=== PATIENT | female | born 1935 | race Caucasian/White ===

== ENCOUNTER 2021-08-21 10:30 | Outpatient (RCR) | payer MEDICARE, OTHER, SELFPAY ==
[2021-08-14 10:20] VITALS: BP 122/92; PULSE 92; RESP 18; TEMP 36.4; BMI 25.7
--- NOTE | 2021-08-14 11:14 | PN.PCM_ITS ---
History of Present Illness Date of Service: 08/14/21 Chief Complaint: Left leg swelling and left lateral calf ulceration History of Wound: Pt has been treated with 3M 2-layer coban wrap and fibracol. Her ulceration appears to have healed. She has seen Dr. Sanches, and LEAs have been ordered. Subjective Subjective Patient is an 86-year-old female with history of COPD, who presents to the wound care center with anterior left lower extremity wound secondary to chronic venous insufficiency and left hallux ulceration medially overlying the IPJ. She was previously seen by a business analytics intern in [place] but due to her hospital liaison noticing some odor coming from the left hallux she requested to be seen in the wound care center. She denies any nausea, vomiting, fever, chills, or shortness of breath. Objective Data Objective Data Vital Signs: Vital Signs Temp Pulse Resp BP 97.5 F L 92 18 122/92 H 08/14/21 10:20 08/14/21 10:20 08/14/21 10:20 08/14/21 10:20 Oxygen Delivery Method Room Air Weight: 70.307 kg Body Mass Index (BMI) 25.7 Physical Exam Const alert, oriented x3, no apparent distress and healthy appearing General Appearance: cooperative HEENT normocephalic Eyes conjunctivae normal and no scleral icterus General Eye: normal appearance of both eyes Neck General: normal visual inspection Lymph Lymphatic: no lymphadenopathy noted Resp normal respiratory effort Cardio Peripheral Pulses: posterior tibial pulses present and dorsalis pedis pulses present Extremity Extremity Narrative: Skin intact with brawny discoloration and hemosiderin deposition left lower extremity secondary to venous insufficiency/stasis. Left lower extremity ulceration anterior with localized rubor and mixed yellow fibrotic granular tissue, no malodor, no purulence or other localized signs of infection, adjacent skin is atrophic and thin. Left hallux IPJ medial significant hyperkeratotic tissue noted with no localized erythema, purulent drainage, red streaking. Left hallux site does have some malodor secondary to underlying skin breakdown. 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 Left hallux IPJ medial significant hyperkeratotic tissue noted secondary to decreased range of motion of the hallux. With no localized erythema, purulent drainage, red streaking. Left hallux site does have some malodor secondary to skin breakdown. Neuro Motor Exam: strength 5/5 throughout and clonus absent Debridement Note Debridement Note Debridement Free Text: Debridement Note Wound debrided: Anterior Left Leg, plantar medial left hallux Wound Grade/Stage: 1, 1 Type of Debridement: Excisional debridement Anesthesia Used: 4% Lidocaine Solution Depth: in the subcutaneous layer Percentage of wound debrided: 100 Instrument Used: # 3 currette and #15 blade Tissue Removed: fibrous, devitalized subcutaneous, biofilm, slough Severity: Fat Layer Exposed Amount of bleeding with debridement: Mild Bleeding Controlled with: Pressure Patient tolerated procedure: Patient tolerated procedure well Post-Debridement Measurements and Additional Note: Post-Debridement Measurements/Treatment - Nurse 1 - General Ulcer Assessment Start: 08/14/21 10:06 Freq: Status: Active Protocol: [email or web address] Activity Type Activity Date Activity User E-Sign Co-Sign Detail Recorded Client Recorded Date Recorded By Document 08/14/21 10:20 JAVIER [id number] 08/14/21 10:32 JAVIER 08/14/21 10:20 - Today's Visit Information Type of service Initial Visit Arrival Mode Ambulatory, Walker Accompanied by home health aide Patient Identification Verified (Name & Yes ) Patient Requires Transmission-Based No Precautions Safety Precautions NA Height and Weight Height 5 ft 5 in Weight 70.307 kg Weight in Pounds 155.0 lbs Weight Measurement Method Estimated by Patient Body Mass Index (BMI) 25.7 BMI Classification Overweight BSA - Gucci 1.78 Vital Signs Temperature (97.8 F-99.1 F) 97.5 F L Temperature Source Temporal Pulse Rate (60-100) 92 Respiratory Rate (12-18) 18 Oxygen Delivery Method Room Air Blood Pressure (90/60-120/80) 122/92 H Blood Pressure Mean (mm Hg) 102 History Since Last Visit- (Skip if this is Patient's initial visit) Have you changed medications since your No last visit? Any new allergies or adverse reactions No Had a fall/change in ADL's that may No increase risk of falls Signs or symptoms of abuse and/or No neglect since last visit Have you been in the hospital since your No last visit? Has dressing in place as prescribed Yes Has compression in place as prescribed No Has offloadiing in place as prescribed No Experienced any changes in pain level or No management Pain Scale: 0-10 Numeric Is Patient Pain Free? Yes Lower Extremity Assessment/ Foot Assessment/ Toe Nail Assessment Left -Polpliteal Pulses Palpable Yes -Popliteal Doppler Multiphasic -Posterior Tibial Palpable Yes -Posterior Tibial Doppler Multiphasic -Dorsalis Pedis Palpable Yes -Dorsalis Pedis Doppler Multiphasic -Extremity Color Dusky -Hair Growth on Legs No -Hair Growth on Toes No -Temperature of Extremity Warm -Capillary Refill Less than 3 Seconds Right -Polpliteal Pulses Palpable Yes -Popliteal Doppler Multiphasic -Posterior Tibial Palpable Yes -Posterior Tibial Doppler Multiphasic -Dorsalis Pedis Palpable Yes -Dorsalis Pedis Doppler Multiphasic -Extremity Color Dusky -Hair Growth on Legs No -Hair Growth on Toes No -Capillary Refill Less than 3 Seconds Communication Assessment Preferred language Trinidadian Case Loader Operator Required No Able to Read Yes Able to Write Yes Communication Tools None Right Hearing Abillity Normal Left Hearing Abillity Normal Visual Assistive Devices Glasses Teaching Assessment Preferences Verbal Barriers to Learning None Readiness To Learn Excellent Willingness to Engage in Self Management High Activies Functional Assessment Recent Decline in Ability to Perform Denies Any Declines Teaching: Wound Center *Debridement -Person Taught Patient,Primary Caregiver -Teaching Method Discussion -Response to teaching Verbalize understanding WC - Nurse 1 - General Ulcer Measurement Start: 08/14/21 10:06 Freq: Status: Active Protocol: Activity Type Activity Date Activity User E-Sign Co-Sign Detail Recorded Client Recorded Date Recorded By Document 08/14/21 10:20 JAVIER [id number] 08/14/21 10:32 JAVIER 08/14/21 10:20 Wound Center Nurse 1 #2 Left Gr Toe -Combined with other wound No -Current Size (cm) - Length 0.1 -Current Size (cm) - Width 0.1 -Current Size (cm) - Depth 0.1 -Total Square Cm 0.01 -Date of Last Picture (Recall this 08/14/21 field) -Photo Taken Yes -Epithelialization None Present -Tunneling No -Undermining/Tunneling No -Circular Undermining No -Classification - Thickness Partial Thickness -Exudate Amt Medium -Exudate Type Serosanguineous -Wound Margin Indistinct, Non -Visible -Granulation Amt None Present (0 %) -Slough/Fibrin Yes -Necrosis Amt Large (67-100%) -Necrotic Tissue Type Adherent Slough -Texture (Vangie-wound Skin Appearance) No Abnormality -Moisture (Vangie-wound Skin Appearance) No Abnormality -Color (Vangie-wound Skin Appearance) No Abnormality -Temperature (Vangie-wound Skin No Abnormality Appearance) (Pt Warm) -Tenderness on Palpation (Vangie-wound Yes Skin Appearance) -Ulcer Cleansing Rinsed/ Irrigated with Saline -Foul Odor after Cleansing No -Anesthetic Used 4% Lidocaine Solution 1-left Ant leg -Combined with other wound No -Current Size (cm) - Length 1.9 -Current Size (cm) - Width 1.4 -Current Size (cm) - Depth 0.2 -Total Square Cm 2.66 -Date of Last Picture (Recall this 08/14/21 field) -Photo Taken Yes -Epithelialization None Present -Tunneling No -Undermining/Tunneling No -Circular Undermining No -Classification - Thickness Full Thickness without Exposed Support Structure -Exudate Amt Medium -Exudate Type Serosanguineous -Wound Margin Indistinct, Non -Visible -Granulation Amt None Present (0 %) -Slough/Fibrin Yes -Necrosis Amt Large (67-100%) -Necrotic Tissue Type Adherent Slough -Moisture (Vangie-wound Skin Appearance) No Abnormality -Color (Vangie-wound Skin Appearance) No Abnormality -Temperature (Vangie-wound Skin No Abnormality Appearance) (Pt Warm) -Tenderness on Palpation (Vangie-wound Yes Skin Appearance) -Ulcer Cleansing Soap and Water -Anesthetic Used 4% Lidocaine Solution Right Calf (cm) 34.7 Right Ankle (cm) 22.0 Left Calf (cm) 37.4 Left Ankle (cm) 23.6 Assessment/Plan Assessment/Plan (1) COPD (chronic obstructive pulmonary disease): CODE(S): J44.9 - Chronic obstructive pulmonary disease, unspecified (2) Chronic venous insufficiency: (3) Non-pressure chronic ulcer of left calf with fat layer exposed: CODE(S): L97.222 - Non-pressure chronic ulcer of left calf with fat layer exposed (4) Varicose veins of left lower extremity with ulcer of calf: CODE(S): I83.022 - Varicose veins of left lower extremity with ulcer of calf (5) Leg edema, left: CODE(S): R60.0 - Localized edema (6) Non-pressure 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: CODE(S): L97.522 - Non-pressure 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 (7) Spinal stenosis: CODE(S): M48.00 - Spinal stenosis, site unspecified PLAN: This is an 86-year-old female with history of COPD and spinal stenosis who presents to the wound care clinic with left lower extremity anterior ulceration secondary to chronic venous insufficiency. She also has a left medial hallux IPJ ulceration secondary to decreased range of motion at the first metatarsophalangeal joint due to end-stage arthritis. She had venous studies performed confirming reflux of the left great saphenous vein and no deep venous thrombosis bilaterally. I debrided the left lower extremity anterior leg ulceration, Russell stage 1, with a #3 curette. Debridement performed to remove fibrous, devitalized subcutaneous, biofilm, slough. I debrided the left hallux medial IPJ hyperkeratotic tissue with a #15 blade. Upon removal of the hyperkeratotic tissue, some malodor was noticed with underlying macerated tissue and a small plantar medial ulceration with underlying granular bed and serous drainage. Debridement continued removing all nonviable tissue, devitalized subcutaneous, biofilm, and slough of this Russell stage 1 ulceration. Left hallux demonstrates no erythema, no purulence, proximal red streaking or other localized signs of infection. Cultures were obtained of the left hallux, aerobic and anaerobic. Ulceration site anterior left lower extremity was dressed with Chuyita, dry sterile dressing, and a Tubigrip. Left hallux ulceration site was dressed with Chuyita, 2 x 2 gauze, cotton padding, Coban and an offloading pad to the first metatarsophalangeal joint. Wound care supplies to be ordered and sent to the patient's house to continue daily dressing changes with assistance of her home health aide. I discussed continued offloading of left hallux ulceration site with felt offloading pads, surgical shoe, or foam shoe inserts. I reviewed and discussed her case today. Debridement was performed today as noted in the clinical panel to all of the ulcer sites. The following work up and care recommendations were made: Dressing: Chuyita anterior left leg; Chuyita left hallux, 2 x 2 gauze, cotton, Cob an and an offloading pad to the first metatarsophalangeal joint Wash: Soap and water Tissue growth optimization: Chuyita Offload: Offloading dressing of the first MTPJ and left hallux Vascular: Vascular status intact with palpable pedal pulses Edema: Elevate the left lower extremity Infection: No localized signs of infection present Pain: [id number] Tylenol, safe oral anti-inflammatory use was discussed. Host factors: I answered all the patient's questions. To return to the wound healing center in 1 week or call sooner if the patient has any questions or concerns. The problems addressed require a low medical decision making level which includes two or more minor problems, a stable chronic illness, or an acute uncomplicated illness or injury. The medical decision making level is low. There is noted low risk of morbidity after considering this treatment plan and diagnostic data.
[2021-08-21 10:36] VITALS: BP 142/76; PULSE 78; RESP 18; TEMP 36.3; BMI 25.7
--- NOTE | 2021-08-21 12:22 | PN.PCM_ITS ---
History of Present Illness Date of Service: 08/21/21 Chief Complaint: Left leg swelling and left anterior leg ulceration, left hallux plantar wound History of Wound: Patient has been treated with Chuyita to both ulceration sites and an offloading pad to the left hallux. Progress of Wound: Left anterior lower extremity ulceration is showing signs of granulation tissue with healing progression. Left plantar hallux ulceration is progressing well and decreasing in size with no localized signs of infection. Subjective Subjective Patient is an 86-year-old female with history of COPD, who presents to the wound care center for follow-up of anterior left lower extremity wound secondary to chronic venous insufficiency and left hallux ulceration medially overlying the IPJ. She denies any nausea, vomiting, fever, chills, or shortness of breath. Her storyboard artist is continuing to change her dressings daily with Chuyita to both ulceration sites and an offloading apparatus pad to the plantar aspect of the first metatarsophalangeal joint to offload the hallux. Her storyboard artist feels that the wounds are decreasing in size and she is showing good progress. Objective Data Objective Data Vital Signs: Vital Signs Temp Pulse Resp BP 97.4 F L 78 18 142/76 H 08/21/21 10:36 08/21/21 10:36 08/21/21 10:36 08/21/21 10:36 Oxygen Delivery Method Room Air Weight: 70.307 kg Body Mass Index (BMI) 25.7 Lab / Micro Data Micro: Microbiology 08/14/21 10:55 Wound Abcess - Toe Gram Stain - Final 08/14/21 10:55 Wound Abcess - Toe Wound Culture - Final Proteus mirabilis 08/14/21 10:55 Wound Abcess - Toe Anaerobic Culture - Final Bifidobacterium spp Anaerobic cocci Physical Exam Const alert, oriented x3, no apparent distress and healthy appearing General Appearance: cooperative HEENT normocephalic Eyes conjunctivae normal and no scleral icterus General Eye: normal appearance of both eyes Neck General: normal visual inspection Lymph Lymphatic: no lymphadenopathy noted Resp normal respiratory effort Cardio Peripheral Pulses: posterior tibial pulses present and dorsalis pedis pulses present Extremity Extremity Narrative: Skin intact with brawny discoloration and hemosiderin deposition left lower extremity secondary to venous insufficiency/stasis. Left lower extremity ulceration anterior with localized rubor and granular tissue in the wound bed, no malodor, no purulence or other localized signs of infection, adjacent skin is atrophic and thin. Left hallux IPJ some h yperkeratotic tissue noted with no localized erythema, purulent drainage, malodor, red streaking or other localized signs of infection. 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 Left hallux IPJ some hyperkeratotic tissue noted secondary to decreased range of motion of the hallux. With no localized erythema, purulent drainage, no malordor, or red streaking. Neuro Motor Exam: strength 5/5 throughout and clonus absent Debridement Note Debridement Note Wound debrided: Left anterior lower extremity ulceration Laterality: Left Wound Grade/Stage: Russell 1 Type of Debridement: Excisional debridement Anesthesia Used: 4% Lidocaine Solution Depth: in the subcutaneous layer Percentage of wound debrided: 100 Instrument Used: #15 blade Tissue Removed: Fibrous, devitalized subcutaneous, biofilm, slough Severity: Fat Layer Exposed Amount of bleeding with debridement: Mild Bleeding Controlled with: Pressure Patient tolerated procedure: Patient tolerated procedure well Post-Debridement Measurements and Additional Note: Post-Debridement Measurements/Treatment - Nurse 1 - General Ulcer Assessment Start: 08/14/21 10:06 Freq: Status: Active Protocol: ALEX Activity Type Activity Date Activity User E-Sign Co-Sign Detail Recorded Client Recorded Date Recorded By Document 08/14/21 10:20 [id number] 08/14/21 10:32 Document 08/21/21 10:36 DARIO [id number] 08/21/21 10:48 DARIO 08/14/21 08/21/21 10:20 10:36 - Today's Visit Information Type of service Initial Visit Follow-up Visit (Physician/COTTON HEADER ) Arrival Mode Ambulatory, Walker Walker Transfer Assistance None Accompanied by home health aide Patient Identification Verified (Name & Yes Yes ) Patient Requires Transmission-Based No No Precautions Safety Precautions NA NA Height and Weight Height 5 ft 5 in Weight 70.307 kg Weight in Pounds 155.0 lbs Weight Measurement Method Estimated by Patient Body Mass Index (BMI) 25.7 25.7 BMI Classification Overweight Overweight BSA - Gucci 1.78 Vital Signs Temperature (97.8 F-99.1 F) 97.5 F L 97.4 F L Temperature Source Temporal Temporal Pulse Rate (60-100) 92 78 Respiratory Rate (12-18) 18 18 Oxygen Delivery Method Room Air Blood Pressure (90/60-120/80) 122/92 H 142/76 H Blood Pressure Mean (mm Hg) 102 98 History Since Last Visit- (Skip if this is Patient's initial visit) Have you changed medications since your No No last visit? Any new allergies or adverse reactions No No Had a fall/change in ADL's that may No No increase risk of falls Signs or symptoms of abuse and/or No No neglect since last visit Have you been in the hospital since your No No last visit? Has dressing in place as prescribed Yes No Has compression in place as prescribed No Yes Has offloadiing in place as prescribed No Yes Experienced any changes in pain level or No No management Pain Scale: 0-10 Numeric Is Patient Pain Free? Yes Yes Lower Extremity Assessment/ Foot Assessment/ Toe Nail Assessment Left -Polpliteal Pulses Palpable Yes -Popliteal Doppler Multiphasic -Posterior Tibial Palpable Yes -Posterior Tibial Doppler Multiphasic -Dorsalis Pedis Palpable Yes -Dorsalis Pedis Doppler Multiphasic -Extremity Color Dusky -Hair Growth on Legs No -Hair Growth on Toes No -Temperature of Extremity Warm -Capillary Refill Less than 3 Seconds Right -Polpliteal Pulses Palpable Yes -Popliteal Doppler Multiphasic -Posterior Tibial Palpable Yes -Posterior Tibial Doppler Multiphasic -Dorsalis Pedis Palpable Yes -Dorsalis Pedis Doppler Multiphasic -Extremity Color Dusky -Hair Growth on Legs No -Hair Growth on Toes No -Capillary Refill Less than 3 Seconds Communication Assessment Preferred language [employer] Sales Associate Required No Able to Read Yes Able to Write Yes Communication Tools None Right Hearing Abillity Normal Left Hearing Abillity Normal Visual Assistive Devices Glasses Teaching Assessment Preferences Verbal Barriers to Learning None Readiness To Learn Excellent Willingness to Engage in Self Management High Activies Functional Assessment Recent Decline in Ability to Perform Denies Any Declines Teaching: Wound Center *Debridement -Person Taught Patient,Primary Caregiver -Teaching Method Discussion -Response to teaching Verbalize understanding WC - Nurse 1 - General Ulcer Measurement Start: 08/14/21 10:06 Freq: Status: Active Protocol: Activity Type Activity Date Activity User E-Sign Co-Sign Detail Recorded Client Recorded Date Recorded By Document 08/14/21 10:20 JF [id number] 08/14/21 10:32 JF Document 08/21/21 10:36 PL [id number] 08/21/21 10:48 PL 08/14/21 08/21/21 10:20 10:36 Wound Center Nurse 1 #2 Left Gr Toe -Combined with other wound No No -Current Size (cm) - Length 0.1 0.2 -Current Size (cm) - Width 0.1 0.4 -Current Size (cm) - Depth 0.1 0.1 -Total Square Cm 0.01 0.08 -Date of Last Picture (Recall this 08/14/21 field) -Photo Taken Yes No -Epithelialization None Present None Present -Tunneling No No -Undermining/Tunneling No No -Circular Undermining No No -Classification - Thickness Partial Thickness -Exudate Amt Medium Medium -Exudate Type Serosanguineous Serosanguineous -Wound Margin Indistinct, Non -Visible -Granulation Amt None Present (0 None Present (0 %) %) -Slough/Fibrin Yes Yes -Necrosis Amt Large (67-100%) Medium (34-66%) -Necrotic Tissue Type Adherent Slough Adherent Slough -Texture (Vangie-wound Skin Appearance) No Abnormality -Moisture (Vangie-wound Skin Appearance) No Abnormality Dry/Scaly -Color (Vangie-wound Skin Appearance) No Abnormality No Abnormality -Temperature (Vangie-wound Skin No Abnormality No Abnormality Appearance) (Pt Warm) (Pt Warm) -Tenderness on Palpation (Vangie-wound Yes Skin Appearance) -Ulcer Cleansing Rinsed/ Soap and Water Irrigated with Saline -Foul Odor after Cleansing No No -Anesthetic Used 4% Lidocaine 5% Lidocaine Solution Gel #3 left anterior leg -Combined with other wound No No -Current Size (cm) - Length 1.9 1.9 -Current Size (cm) - Width 1.4 1.1 -Current Size (cm) - Depth 0.2 0.1 -Total Square Cm 2.66 2.09 -Date of Last Picture (Recall this 08/14/21 field) -Photo Taken Yes -Epithelialization None Present None Present -Tunneling No No -Undermining/Tunneling No No -Circular Undermining No No -Classification - Thickness Full Thickness without Exposed Support Structure -Exudate Amt Medium Medium -Exudate Type Serosanguineous Serosanguineous -Wound Margin Indistinct, Non -Visible -Granulation Amt None Present (0 Small (1-33%) %) -Granulation Quality Pale -Slough/Fibrin Yes Yes -Necrosis Amt Large (67-100%) Medium (34-66%) -Necrotic Tissue Type Adherent Slough Adherent Slough -Moisture (Vangie-wound Skin Appearance) No Abnormality Dry/Scaly -Color (Vangie-wound Skin Appearance) No Abnormality No Abnormality -Temperature (Vangie-wound Skin No Abnormality No Abnormality Appearance) (Pt Warm) (Pt Warm) -Tenderness on Palpation (Vangie-wound Yes Skin Appearance) -Ulcer Cleansing Soap and Water Soap and Water -Anesthetic Used 4% Lidocaine 5% Lidocaine Solution Gel Right Calf (cm) 34.7 Right Ankle (cm) 22.0 Left Calf (cm) 37.4 Left Ankle (cm) 23.6 WC - Nurse 2 - General Ulcer CM Notes Start: 08/14/21 10:06 Freq: Status: Active Protocol: Activity Type Activity Date Activity User E-Sign Co-Sign Detail Recorded Client Recorded Date Recorded By Document 08/14/21 11:18 PL [id number] 08/14/21 11:20 PL 08/14/21 11:18 Wound Center Nurse 2 #2 Left Gr Toe -Time 10:48 -Correct Patient Yes -Correct Side, Site, Position Yes -Correct Procedure Yes -Procedure Performed Yes -Type of Procedure Debridement -Clinical Debridement Subcutaneous -Tissue Removed Subcutaneous -Post Debridement (cm) - Length 0.1 -Post Debridement (cm) - Width 0.1 -Post Debridement (cm) - Depth 0.1 -Total Square (Post) (cm) 0.01 -Area of Debridement (cm) - Length 0.1 -Area of Debridement (cm) - Width 0.1 -Total Square (Area) (cm) 0.01 -Tunneling No -Undermining/Tunneling No -Circular Undermining No -Wound/Ulcer Outcome Not Healed -Ulcer Cleansing Rinsed/ Irrigated with Saline -Foul Odor after Cleansing No -Bioengineered Tissue No -Bleeding Controlled with Pressure -Treatment Response Procedure Tolerated Well -Debridement - Subq, 1st 20sq cm No #3 left anterior leg -Time 10:48 -Correct Patient Yes -Correct Side, Site, Position Yes -Correct Procedure Yes -Procedure Performed Yes -Type of Procedure Debridement -Clinical Debridement Subcutaneous -Tissue Removed Subcutaneous -Post Debridement (cm) - Length 1.9 -Post Debridement (cm) - Width 1.4 -Post Debridement (cm) - Depth 0.2 -Total Square (Post) (cm) 2.66 -Area of Debridement (cm) - Length 1.9 -Area of Debridement (cm) - Width 1.4 -Total Square (Area) (cm) 2.66 -Tunneling No -Undermining/Tunneling No -Circular Undermining No -Wound/Ulcer Outcome Not Healed -Ulcer Cleansing Rinsed/ Irrigated with Saline -Foul Odor after Cleansing No -Bioengineered Tissue No -Bleeding Controlled with Pressure -Treatment Response Procedure Tolerated Well -Debridement - Subq, 1st 20sq cm Yes Pain Scale: 0-10 Numeric Is Patient Pain Free? Yes - Nurse 3 - General Ulcer D/C NN Start: 08/14/21 10:06 Freq: Status: Active Protocol: Activity Type Activity Date Activity User E-Sign Co-Sign Detail Recorded Client Recorded Date Recorded By Document 08/14/21 11:34 JAVIER [id number] 08/14/21 11:35 JAVIER 08/14/21 11:34 Wound Care Nurse 3 #2 Left Gr Toe -Ulcer Cleansing Rinsed/ Irrigated with Saline -Foul Odor after Cleansing No -Primary Dressing Applied Promogran Chuyita Matter -Primary Dressing Covered/Secured with Dry Gauze, Secured with Tape -Promogran Chuyita Matter 1 #3 left anterior leg -Ulcer Cleansing Rinsed/ Irrigated with Saline -Foul Odor after Cleansing No -Primary Dressing Applied Promogran Chuyita Matter -Primary Dressing Covered/Secured with Dry Gauze & Roll Gauze, Secured with Tape -Promogran Chuyita Matter 0 Left -Tubular Bandage Single Layer -Size of Tubigrip Used Size E -Size E ($) 2 -Stockings No Pain Scale: 0-10 Numeric Is Patient Pain Free? Yes WC - Visit Discharge Discharge Condition Stable Ambulatory Status Ambulatory, Walker Transportation Private Auto Accompanied by private caregiver Medication Reconcilliation completed & Yes provided to patient/care provider Clinical Summary of Care Provided Yes Additional Wound Wound debrided: Left plantar hallux Laterality: Left Wound Grade/Stage: Russell stage I Type of Debridement: Excisional debridement Anesthesia Used: 4% Lidocaine Solution Depth: in the subcutaneous layer Percentage of wound debrided: 100 Instrument Used: #15 blade Tissue Removed: Fibrous, devitalized subcutaneous, biofilm, slough, hyperkeratotic tissue Severity: Fat Layer Exposed Amount of bleeding with debridement: Mild Bleeding Controlled with: Pressure Patient tolerated procedure: Patient tolerated procedure well Assessment/Plan Assessment/Plan (1) COPD (chronic obstructive pulmonary disease): CODE(S): J44.9 - Chronic obstructive pulmonary disease, unspecified (2) Chronic venous insufficiency: (3) Non-pressure chronic ulcer of left calf with fat layer exposed: CODE(S): L97.222 - Non-pressure chronic ulcer of left calf with fat layer exposed (4) Varicose veins of left lower extremity with ulcer of calf: CODE(S): I83.022 - Varicose veins of left lower extremity with ulcer of calf (5) Leg edema, left: CODE(S): R60.0 - Localized edema (6) Non-pressure 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: CODE(S): L97.522 - Non-pressure 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 (7) Spinal stenosis: CODE(S): M48.00 - Spinal stenosis, site unspecified PLAN: This is an 86-year-old female with history of COPD and spinal stenosis who presents to the wound care clinic for follow-up of left lower extremity anterior ulceration secondary to chronic venous insufficiency. She also has a left medial hallux IPJ ulceration secondary to decreased range of motion at the first metatarsophalangeal joint due to end-stage arthritis. She had venous studies performed confirming reflux of the left great saphenous vein and no deep venous thrombosis bilaterally. I debrided the left lower extremity anterior leg ulceration, Russell stage 1, with a #15 blade. Debridement performed to remove fibrous, devitalized subcutaneous, biofilm, slough. I debrided the left hallux medial IPJ hyperkeratotic tissue with a #15 blade removing all nonviable tissue, devitalized subcutaneous, biofilm, and slough of this Russell stage 1 ulceration. Left hallux demonstrates no erythema, no purulence, proximal red streaking or other localized signs of infection. Cultures demonstrated localized skin contaminants. Left hallux ulceration site is showing progression decreasing in size overall with less callus buildup. Patient continues to offload the first metatarsophalangeal joint and hallux with an offloading pad. Instructed patient and storyboard artist to continue to offload as this is zepeda to decreasing pressure and healing this ulceration. Ulceration site anterior left lower extremity was dressed with Chuyita, dry sterile dressing, and a Tubigrip. Left hallux ulceration site was dressed with Chuyita, 2 x 2 gauze, cotton padding, Coban and an offloading pad to the first metatarsophalangeal joint. I discussed continued offloading of left hallux ulceration site with felt offloading pads, surgical shoe, or foam shoe inserts. I reviewed and discussed her case today. Debridement was performed today as noted in the clinical panel to all of the ulcer sites. The following work up and care recommendations were made: Dressing: Chuyita anterior left leg; Chuyita left hallux, 2 x 2 gauze, cotton, Coban and an offloading pad to the first metatarsophalangeal joint Wash: Soap and water Tissue growth optimization: Chuyita Offload: Offloading dressing of the first MTPJ and left hallux Vascular: Vascular status intact with palpable pedal pulses Edema: Elevate the left lower extremity Infection: No localized signs of infection present Pain: [id number] Tylenol, safe oral anti-inflammatory use was discussed. Host factors: Chronic venous statsis I answered all the patient's questions. To return to the wound healing center in 1 week or call sooner if the patient has any questions or concerns. The problems addressed require a low medical decision making level which includes two or more minor problems, a stable chronic illness, or an acute uncomplicated illness or injury. The medical decision making level is low. There is noted low risk of morbidity after considering this treatment plan and diagnostic data.
== END 2021-08-25 23:59 ==
LOC: WC 10:30
PROVIDERS: PCP Family Medicine; Visit Provider Student in an Organized Health Care Education/Training Program
DX: I87.2 Venous insufficiency (chronic) (peripheral) (principal); L97.522 Non-pressure 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; L97.222 Non-pressure chronic ulcer of left calf with fat layer exposed; I83.022 Varicose veins of left lower extremity with ulcer of calf; J44.9 Chronic obstructive pulmonary disease, unspecified; I83.92 Asymptomatic varicose veins of left lower extremity; M48.00 Spinal stenosis, site unspecified; R60.0 Localized edema
CPT/HCPCS: 11042; 87070; 87075; 87077; 87186; 87205; 99213; G0463

== ENCOUNTER 2021-09-18 10:00 | Outpatient (RCR) | payer MEDICARE, OTHER, SELFPAY ==
[2021-08-26 00:47] VITALS: BP 142/76; PULSE 78; RESP 18; TEMP 36.3; BMI 25.7
[2021-09-04 10:29] VITALS: TEMP 36.3; BMI 25.7
--- NOTE | 2021-09-04 11:06 | PCM.WC.PN ---
History of Present Illness Date of Service: 09/04/21 Chief Complaint: Left leg swelling and left anterior leg ulceration, left hallux plantar wound History of Wound: Patient has been treated with Chuyita to both ulceration sites and an offloading pad to the left hallux. Subjective Subjective This is an 86-year-old female who presents to the wound care center for follow-up of left lower extremity ulceration secondary to chronic venous insufficiency and left subhallux ulceration. She denies any nausea, vomiting, fever, chills, shortness of breath, or other constitutional symptoms. She states she has been continuing to change her dressings daily with Chuyita dry sterile dressings and offloading of the first metatarsophalangeal joint of the left foot with the assistance of her business instructor. Objective Data Objective Data Vital Signs: Vital Signs Temp Pulse Resp BP 97.4 F L 78 18 142/76 H 09/04/21 10:29 08/26/21 00:47 08/26/21 00:47 08/26/21 00:47 Weight: 70.307 kg Body Mass Index (BMI) 25.7 Physical Exam Const alert, oriented x3 and no apparent distress General Appearance: cooperative and comfortable HEENT normocephalic Eyes General Eye: normal appearance of both eyes Neck General: normal visual inspection Lymph Lymphatic: no lymphadenopathy noted and no lymphedema noted Resp normal respiratory effort Cardio regular rate and regular rhythm Skin no rashes or lesions noted and skin turgor normal Skin Narrative: Skin intact with brawny discoloration and hemosiderin deposition left lower extremity secondary to venous insufficiency/stasis. Left lower extremity ulceration anterior with localized rubor and granular tissue in the wound bed, no malodor, no purulence or other localized signs of infection, adjacent skin is atrophic and thin. Left hallux IPJ some hyperkeratotic tissue noted with no localized erythema, purulent drainage, malodor, red streaking or other localized signs of infection. 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 Left hallux IPJ some hyperkeratotic tissue noted secondary to decreased range of motion of the hallux. With no localized erythema, purulent drainage, or malodor, or red streaking. Neuro Motor Exam: strength 5/5 throughout Debridement Note Debridement Note Wound debrided: Left anterior lower extremity ulceration Laterality: Left Wound Grade/Stage: Russell 1 Type of Debridement: Excisional debridement Anesthesia Used: 5% Lidocaine Gel Depth: in the subcutaneous layer Percentage of wound debrided: 100 Instrument Used: 3mm curette Tissue Removed: Fibrous, devitalized subcutaneous, biofilm, slough Severity: Fat Layer Exposed Amount of bleeding with debridement: Mild Bleeding Controlled with: Pressure Patient tolerated procedure: Patient tolerated procedure well Post-Debridement Measurements and Additional Note: Post-Debridement Measurements/Treatment - Nurse 1 - General Ulcer Assessment Start: 09/04/21 10:29 Freq: Status: Active Protocol: ALEX Activity Type Activity Date Activity User E-Sign Co-Sign Detail Recorded Client Recorded Date Recorded By Document 09/04/21 10:29 JAVIER [id number] 09/04/21 10:41 JAVIER 09/04/21 10:29 - Today's Visit Information Type of service Follow-up Visit (Physician/METAL FABRICATOR HELPER ) Arrival Mode Ambulatory,Cane Accompanied by caregiver Patient Identification Verified (Name & Yes ) Patient Requires Transmission-Based No Precautions Height and Weight Body Mass Index (BMI) 25.7 BMI Classification Overweight Vital Signs Temperature (97.8 F-99.1 F) 97.4 F L Temperature Source Temporal History Since Last Visit- (Skip if this is Patient's initial visit) Have you changed medications since your No last visit? Any new allergies or adverse reactions No Had a fall/change in ADL's that may No increase risk of falls Signs or symptoms of abuse and/or No neglect since last visit Have you been in the hospital since your No last visit? Has dressing in place as prescribed Yes Has compression in place as prescribed Yes Has offloadiing in place as prescribed N/A Experienced any changes in pain level or No management Left Footwear Regular Shoe Right Footwear Regular Shoe Pain Scale: 0-10 Numeric Is Patient Pain Free? Yes - Nurse 1 - General Ulcer Measurement Start: 09/04/21 10:29 Freq: Status: Active Protocol: Activity Type Activity Date Activity User E-Sign Co-Sign Detail Recorded Client Recorded Date Recorded By Document 09/04/21 10:29 JAVIER [id number] 09/04/21 10:41 JAVIER 09/04/21 10:29 Wound Center Nurse 1 #2 Left Gr Toe -Combined with other wound No -Current Size (cm) - Length 0.1 -Current Size (cm) - Width 0.1 -Current Size (cm) - Depth 0.1 -Total Square Cm 0.01 -Photo Taken Yes -Epithelialization Small 1-33% -Tunneling No -Undermining/Tunneling No -Circular Undermining No -Exudate Amt None Present -Wound Margin Indistinct, Non -Visible -Granulation Amt None Present (0 %) -Slough/Fibrin Yes -Necrosis Amt Small (1-33%) -Necrotic Tissue Type Adherent Slough -Structure Exposed Fat Layer Exposed -Texture (Vangie-wound Skin Appearance) Assessed,Callus -Moisture (Vangie-wound Skin Appearance) Assessed,Dry/ Scaly -Color (Vangie-wound Skin Appearance) Assessed -Temperature (Vangie-wound Skin No Abnormality Appearance) (Pt Warm) -Tenderness on Palpation (Vangie-wound No Skin Appearance) -Ulcer Cleansing Rinsed/ Irrigated with Saline -Foul Odor after Cleansing No -Anesthetic Used 5% Lidocaine Gel #3 left anterior leg -Combined with other wound No -Current Size (cm) - Length 1.8 -Current Size (cm) - Width 1.0 -Current Size (cm) - Depth 0.2 -Total Square Cm 1.80 -Photo Taken Yes -Epithelialization Small 1-33% -Tunneling No -Undermining/Tunneling No -Circular Undermining No -Exudate Amt Small -Exudate Type Serosanguineous -Wound Margin Flat & Intact -Granulation Amt Large (67-100%) -Granulation Quality Red -Slough/Fibrin Yes -Necrosis Amt Small (1-33%) -Necrotic Tissue Type Adherent Slough -Structure Exposed N/A -Texture (Vangie-wound Skin Appearance) Assessed, Localized Edema -Moisture (Vangie-wound Skin Appearance) Assessed,Dry/ Scaly -Color (Vangie-wound Skin Appearance) Assessed -Temperature (Vangie-wound Skin No Abnormality Appearance) (Pt Warm) -Tenderness on Palpation (Vangie-wound No Skin Appearance) -Ulcer Cleansing Rinsed/ Irrigated with Saline -Foul Odor after Cleansing No -Anesthetic Used 5% Lidocaine Gel Lower Limb Edema Present Yes Left Calf (cm) 35.8 Left Ankle (cm) 23.3 Additional Wound Wound debrided: Left plantar hallux Laterality: Left Wound Grade/Stage: Russell stage 1 Type of Debridement: Excisional debridement Anesthesia Used: 5% Lidocaine Gel Depth: in the subcutaneous layer Percentage of wound debrided: 100 Instrument Used: #15 blade Tissue Removed: Hyperkeratotic, fibrous, devitalized subcutaneous, biofilm, slough Severity: Fat Layer Exposed Amount of bleeding with debridement: Mild Bleeding Controlled with: Pressure Patient tolerated procedure: Patient tolerated procedure well Assessment/Plan Assessment/Plan (1) Non-pressure 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: CODE(S): L97.522 - Non-pressure 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 (2) Non-pressure chronic ulcer of left calf with fat layer exposed: CODE(S): L97.222 - Non-pressure chronic ulcer of left calf with fat layer exposed (3) Varicose veins of left lower extremity with ulcer of calf: CODE(S): I83.022 - Varicose veins of left lower extremity with ulcer of calf (4) Chronic venous insufficiency: (5) Leg edema, left: CODE(S): R60.0 - Localized edema (6) COPD (chronic obstructive pulmonary disease): CODE(S): J44.9 - Chronic obstructive pulmonary disease, unspecified (7) Spinal stenosis: CODE(S): M48.00 - Spinal stenosis, site unspecified (8) Back pain: CODE(S): M54.9 - Dorsalgia, unspecified (9) Edema leg: CODE(S): R60.0 - Localized edema PLAN: This is an 86-year-old female with history of COPD and spinal stenosis who presents to the wound care clinic for follow-up of left lower extremity anterior ulceration secondary to chronic venous insufficiency. She also has a left medial hallux IPJ ulceration secondary to decreased range of motion at the first metatarsophalangeal joint due to end-stage arthritis. She had venous studies performed confirming reflux of the left great saphenous vein and no deep venous thrombosis bilaterally. Ulceration site anterior left lower extremity, Russell stage I, was debrided sharply with a 3 mm curette. Ulceration site is showing progression decreasing in size. Debridement performed to remove fibrous, devitalized tissue, biofilm, slough. I debrided the left hallux medial IPJ hyperkeratotic tissue with a #15 blade removing all nonviable tissue, devitalized subcutaneous, biofilm, and slough of this Russell stage I ulceration. Left hallux demonstrates no erythema, no purulence, proximal red streaking or other localized signs of infection. Left hallux ulceration site is showing progression of decreasing size overall with less callus buildup. Patient continues to offload the first metatarsophalangeal joint and the hallux with an offloading pad. Instructed patient and business instructor to continue to offload this as this is zepeda to decreasing pressure and healing this ulceration. Ulceration site anterior left lower extremity was dressed with Chuyita, dry sterile dressing, and a Tubigrip. Left hallux ulceration site was dressed with Chuyita, 2 x 2 gauze, cotton padding, Coban and an offloading pad to the first metatarsophalangeal joint. I discussed continued offloading of the hallux ulceration site with the felt pads, surgical shoe, or foam inserts. I reviewed and discussed his case today. Debridement was performed today as noted in the clinical panel to all of the ulcer sites. The following work up and care recommendations were made: Dressing: Chuyita anterior left leg; Chuyita left hallux, 2 x 2 gauze, cotton, Coban and an offloading pad to the first metatarsophalangeal joint Wash: Soap and water Tissue growth optimization: Chuyita Offload: Offloading dressing of the first MTPJ and left hallux Vascular: Vascular status intact with palpable pedal pulses Edema: Elevation of the left lower extremity to control edema Infection: No localized signs of infection present Pain: May take [id number] Tylenol, safe oral anti-inflammatory use was discussed Host factors: Chronic venous insufficiency I answered all the patient's questions. To return to the wound healing center in 1 week or call sooner if the patient has any questions or concerns. Note: amaysim speech recognition bioinformatics programmer software was used to create portions of this document. Sound-alike and misspelled words, as well as other bioinformatics programmer errors may be contained in the documentation.
[2021-09-11 10:54] VITALS: BP 131/64; PULSE 91; RESP 16; TEMP 35.7; BMI 25.7
--- NOTE | 2021-09-11 11:41 | PCM.WC.PN ---
History of Present Illness Date of Service: 09/11/21 Chief Complaint: Left leg swelling and left anterior leg ulceration, left hallux plantar wound History of Wound: Patient has been treated with Tommy to both ulceration sites and an offloading pad to the left hallux. Subjective Subjective This is an 86-year-old female who presents today to the wound care center for follow-up of left lower extremity ulceration and left hallux ulceration overlying the interphalangeal joint. She denies any nausea, vomiting, chills, fever, shortness of breath, or other constitutional symptoms. Her health aide kindergarten assistant is present with her today and continues to help her change her dressings daily and applies an offloading pad to the first metatarsal head to offload the hallux distally. She denies any complaints today. Patient's daughter asks me for assistance in trimming her nails as they are long and are causing her pain as they contact the end of the shoes during ambulation. Patient states it is difficult to walk due to the pain from her toenails. Objective Data Objective Data Vital Signs: Vital Signs Temp Pulse Resp BP 96.2 F L 91 16 131/64 H 09/11/21 10:54 09/11/21 10:54 09/11/21 10:54 09/11/21 10:54 Oxygen Delivery Method Room Air Weight: 70.307 kg Body Mass Index (BMI) 25.7 Physical Exam Const alert, oriented x3 and no apparent distress General Appearance: cooperative and comfortable HEENT normocephalic Eyes General Eye: normal appearance of both eyes Neck General: normal visual inspection Lymph Lymphatic: no lymphadenopathy noted and no lymphedema noted Resp normal respiratory effort Cardio regular rate and regular rhythm Skin no rashes or lesions noted and skin turgor normal Skin Narrative: Skin intact with brawny discoloration and hemosiderin deposition left lower extremity secondary to venous insufficiency/stasis. Left lower extremity ulceration anterior with localized rubor and granular tissue in the wound bed, no malodor, no purulence or other localized signs of infection, adjacent skin is atrophic and thin. Left hallux IPJ some hyperkeratotic tissue noted with no localized erythema, purulent drainage, malodor, red streaking or other localized signs of infection. 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 Left hallux IPJ some hyperkeratotic tissue noted secondary to decreased range of motion of the hallux. With no localized erythema, purulent drainage, or malodor, or red streaking. Neuro Motor Exam: strength 5/5 throughout Debridement Note Debridement Note Wound debrided: Left anterior lower extremity Laterality: Left Wound Grade/Stage: Russell stage I Type of Debridement: Excisional debridement Anesthesia Used: 5% Lidocaine Gel and Cetacaine Depth: in the subcutaneous layer Percentage of wound debrided: 100 Instrument Used: 3mm curette Tissue Removed: Fibrous, devitalized subcutaneous, biofilm, slough Severity: Fat Layer Exposed Amount of bleeding with debridement: Mild Bleeding Controlled with: Pressure Patient tolerated procedure: Patient tolerated procedure well Post-Debridement Measurements and Additional Note: Post-Debridement Measurements/Treatment - Nurse 1 - General Ulcer Assessment Start: 09/04/21 10:29 Freq: Status: Active Protocol: [email or web address] Activity Type Activity Date Activity User E-Sign Co-Sign Detail Recorded Client Recorded Date Recorded By Document 09/04/21 10:29 [id number] 09/04/21 10:41 Document 09/11/21 10:54 [facility] [id number] 09/11/21 11:00 [facility] 09/04/21 09/11/21 10:29 10:54 - Today's Visit Information Type of service Follow-up Visit Follow-up Visit (Physician/EPITAXIAL REACTOR TECHNICIAN (Physician/EPITAXIAL REACTOR TECHNICIAN ) ) Arrival Mode Ambulatory,Cane Ambulatory Transfer Assistance None Accompanied by caregiver caregiver Patient Identification Verified (Name & Yes Yes ) Patient Requires Transmission-Based No Precautions Height and Weight Body Mass Index (BMI) 25.7 25.7 BMI Classification Overweight Overweight Vital Signs Temperature (97.8 F-99.1 F) 97.4 F L 96.2 F L Temperature Source Temporal Temporal Pulse Rate (60-100) 91 Pulse Location Monitor Respiratory Rate (12-18) 16 Respiratory rate source Observation Oxygen Delivery Method Room Air Blood Pressure (90/60-120/80) 131/64 H Blood Pressure Mean (mm Hg) 86 Source Monitor Position Sitting Blood Pressure Location Left Arm History Since Last Visit- (Skip if this is Patient's initial visit) Have you changed medications since your No No last visit? Any new allergies or adverse reactions No No Had a fall/change in ADL's that may No No increase risk of falls Signs or symptoms of abuse and/or No No neglect since last visit Have you been in the hospital since your No No last visit? Has dressing in place as prescribed Yes Yes Has compression in place as prescribed Yes No Has offloadiing in place as prescribed N/A N/A Experienced any changes in pain level or No No management Left Footwear Regular Shoe Regular Shoe Right Footwear Regular Shoe Regular Shoe Pain Scale: 0-10 Numeric Is Patient Pain Free? Yes Yes - Nurse 1 - General Ulcer Measurement Start: 09/04/21 10:29 Freq: Status: Active Protocol: Activity Type Activity Date Activity User E-Sign Co-Sign Detail Recorded Client Recorded Date Recorded By Document 09/04/21 10:29 [id number] 09/04/21 10:41 Document 09/11/21 10:54 [facility] [id number] 09/11/21 11:00 [facility] 09/04/21 09/11/21 10:29 10:54 Wound Center Nurse 1 #2 Left Gr Toe -Combined with other wound No No -Current Size (cm) - Length 0.1 0.4 -Current Size (cm) - Width 0.1 0.5 -Current Size (cm) - Depth 0.1 0.1 -Total Square Cm 0.01 0.20 -Photo Taken Yes No -Epithelialization Small 1-33% Small 1-33% -Tunneling No No -Undermining/Tunneling No No -Circular Undermining No No -Exudate Amt None Present Small -Exudate Type Serous -Wound Margin Indistinct, Non Distinct, -Visible Outline Attached -Granulation Amt None Present (0 Large (67-100%) %) -Granulation Quality [place] -Slough/Fibrin Yes Yes -Necrosis Amt Small (1-33%) Small (1-33%) -Necrotic Tissue Type Adherent Slough Adherent Slough -Structure Exposed Fat Layer Exposed -Texture (Vangie-wound Skin Appearance) Assessed,Callus Assessed,Callus ,Scarring -Moisture (Vangie-wound Skin Appearance) Assessed,Dry/ No Abnormality, Scaly Dry/Scaly -Color (Vangie-wound Skin Appearance) Assessed Assessed -Temperature (Vangie-wound Skin No Abnormality No Abnormality Appearance) (Pt Warm) (Pt Warm) -Tenderness on Palpation (Vangie-wound No No Skin Appearance) -Ulcer Cleansing Rinsed/ Rinsed/ Irrigated with Irrigated with Saline Saline -Foul Odor after Cleansing No No -Anesthetic Used 5% Lidocaine 5% Lidocaine Gel Gel #3 left anterior leg -Combined with other wound No No -Current Size (cm) - Length 1.8 1.9 -Current Size (cm) - Width 1.0 1 -Current Size (cm) - Depth 0.2 0.1 -Total Square Cm 1.80 1.9 -Photo Taken Yes No -Epithelialization Small 1-33% None Present -Tunneling No No -Undermining/Tunneling No No -Circular Undermining No No -Exudate Amt Small Small -Exudate Type Serosanguineous Serous -Wound Margin Flat & Intact Distinct, Outline Attached -Granulation Amt Large (67-100%) Large (67-100%) -Granulation Quality Red [place] -Slough/Fibrin Yes Yes -Necrosis Amt Small (1-33%) Small (1-33%) -Necrotic Tissue Type Adherent Slough Adherent Slough -Structure Exposed N/A -Texture (Vangie-wound Skin Appearance) Assessed, Assessed, Localized Edema Scarring -Moisture (Vangie-wound Skin Appearance) Assessed,Dry/ Assessed,Dry/ Scaly Scaly -Color (Vangie-wound Skin Appearance) Assessed Assessed -Temperature (Vangie-wound Skin No Abnormality No Abnormality Appearance) (Pt Warm) (Pt Warm) -Tenderness on Palpation (Vangie-wound No No Skin Appearance) -Ulcer Cleansing Rinsed/ Rinsed/ Irrigated with Irrigated with Saline Saline -Foul Odor after Cleansing No No -Anesthetic Used 5% Lidocaine 5% Lidocaine Gel Gel Lower Limb Edema Present Yes Yes Left Calf (cm) 35.8 36 Left Ankle (cm) 23.3 23.5 WC - Nurse 2 - General Ulcer CM Notes Start: 09/04/21 10:29 Freq: Status: Active Protocol: Activity Type Activity Date Activity User E-Sign Co-Sign Detail Recorded Client Recorded Date Recorded By Document 09/04/21 12:58 PL [id number] 09/04/21 12:59 PL 09/04/21 12:58 Wound Center Nurse 2 #2 Left Gr Toe -Time 11:08 -Correct Patient Yes -Correct Side, Site, Position Yes -Correct Procedure Yes -Procedure Performed Yes -Type of Procedure Debridement -Clinical Debridement Subcutaneous -Tissue Removed Subcutaneous -Post Debridement (cm) - Length 0.1 -Post Debridement (cm) - Width 0.1 -Post Debridement (cm) - Depth 0.1 -Total Square (Post) (cm) 0.01 -Area of Debridement (cm) - Length 0.1 -Area of Debridement (cm) - Width 0.1 -Total Square (Area) (cm) 0.01 -Tunneling No -Undermining/Tunneling No -Circular Undermining No -Wound/Ulcer Outcome Not Healed -Ulcer Cleansing Rinsed/ Irrigated with Saline -Foul Odor after Cleansing No -Bioengineered Tissue No -Bleeding Controlled with Pressure -Treatment Response Procedure Tolerated Well -Debridement - Subq, 1st 20sq cm No #3 left anterior leg -Time 11:08 -Correct Patient Yes -Correct Side, Site, Position Yes -Correct Procedure Yes -Procedure Performed Yes -Type of Procedure Debridement -Clinical Debridement Subcutaneous -Tissue Removed Subcutaneous -Post Debridement (cm) - Length 1.8 -Post Debridement (cm) - Width 1.0 -Post Debridement (cm) - Depth 0.2 -Total Square (Post) (cm) 1.80 -Area of Debridement (cm) - Length 1.8 -Area of Debridement (cm) - Width 1.0 -Total Square (Area) (cm) 1.80 -Tunneling No -Undermining/Tunneling No -Circular Undermining No -Wound/Ulcer Outcome Not Healed -Ulcer Cleansing Rinsed/ Irrigated with Saline -Foul Odor after Cleansing No -Bioengineered Tissue No -Bleeding Controlled with Pressure -Treatment Response Procedure Tolerated Well -Debridement - Subq, 1st 20sq cm Yes Pain Scale: 0-10 Numeric Is Patient Pain Free? Yes WC - Nurse 3 - General Ulcer D/C NN Start: 09/04/21 10:29 Freq: Status: Active Protocol: Activity Type Activity Date Activity User E-Sign Co-Sign Detail Recorded Client Recorded Date Recorded By Document 09/04/21 11:32 JF [id number] 09/04/21 11:34 JAVIER 09/04/21 11:32 Wound Care Nurse 3 #2 Left Gr Toe -Ulcer Cleansing Rinsed/ Irrigated with Saline -Foul Odor after Cleansing No -Primary Dressing Applied Promogran Tommy Matter -Other Dressing moistened tommy -Primary Dressing Covered/Secured with Dry Gauze, Secured with Tape -Promogran Tommy Matter 1 #3 left anterior leg -Ulcer Cleansing Rinsed/ Irrigated with Saline -Foul Odor after Cleansing No -Primary Dressing Applied Promogran Tommy Matter -Primary Dressing Covered/Secured with Dry Gauze, Secured with Tape -Promogran Tommy Matter 0 Left -Compression Wrap Francisco Javier Wrap -Other Patient left her tubigrips at home so an francisco javier wrap was applied. Pain Scale: 0-10 Numeric Is Patient Pain Free? Yes WC - Visit Discharge Discharge Condition Stable Ambulatory Status Ambulatory,Cane Transportation Private Auto Accompanied by career agent Medication Reconcilliation completed & Yes provided to patient/care provider Clinical Summary of Care Provided Yes Additional Wound Wound debrided: Left hallux subinterphalangeal joint Laterality: Left Wound Grade/Stage: Russell stage I Type of Debridement: Excisional debridement Anesthesia Used: 5% Lidocaine Gel Depth: in the subcutaneous layer Percentage of wound debrided: 100 Instrument Used: #15 blade Tissue Removed: Fibrous, devitalized subcutaneous, biofilm, slough Severity: Fat Layer Exposed Amount of bleeding with debridement: Mild Bleeding Controlled with: Pressure Patient tolerated procedure: Patient tolerated procedure well Assessment/Plan Assessment/Plan (1) Non-pressure 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: CODE(S): L97.522 - Non-pressure 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 (2) Non-pressure chronic ulcer of left calf with fat layer exposed: CODE(S): L97.222 - Non-pressure chronic ulcer of left calf with fat layer exposed (3) Varicose veins of left lower extremity with ulcer of calf: CODE(S): I83.022 - Varicose veins of left lower extremity with ulcer of calf (4) Chronic venous insufficiency: (5) Leg edema, left: CODE(S): R60.0 - Localized edema (6) COPD (chronic obstructive pulmonary disease): CODE(S): J44.9 - Chronic obstructive pulmonary disease, unspecified (7) Spinal stenosis: CODE(S): M48.00 - Spinal stenosis, site unspecified (8) Back pain: CODE(S): M54.9 - Dorsalgia, unspecified (9) Edema leg: CODE(S): R60.0 - Localized edema PLAN: This is an 86-year-old female with history of COPD and spinal stenosis who presents to the wound care clinic for follow-up of left lower extremity anterior ulceration secondary to chronic venous insufficiency. She also has a left medial hallux IPJ ulceration secondary to decreased range of motion at the first metatarsophalangeal joint due to end-stage arthritis. She had venous studies performed confirming reflux of the left great saphenous vein and no deep venous thrombosis bilaterally. Ulceration site anterior left lower extremity, Russell stage I, was debrided sharply with a 3 mm curette. Ulceration site is continuing to show progression decreasing in size. Debridement performed to remove fibrous, devitalized tissue, biofilm, slough. Left lower extremity anterior ulceration site demonstrates no localized signs of infection. I debrided the left hallux medial IPJ hyperkeratotic tissue with a #15 blade removing all nonviable tissue, devitalized subcutaneous, biofilm, and slough of this Russell stage I ulceration. Left hallux demonstrates no erythema, no purulence, proximal red streaking or other localized signs of infection. Left hallux ulceration site is showing progression of decreasing size overall with less callus buildup. This wound is nearing closure. Patient continues to offload the first metatarsophalangeal joint and the hallux with an offloading pad. Instructed patient and golf ball inspector to continue to offload this as this is zepeda to decreasing pressure and healing this ulceration. Ulceration site anterior left lower extremity was dressed with Tommy, dry sterile dressing, and a Tubigrip. Left hallux ulceration site was dressed with Tommy, 2 x 2 gauze, cotton padding, Coban and an offloading pad to the first metatarsophalangeal joint. I discussed continued offloading of the hallux ulceration site with the felt pads, surgical shoe, or foam inserts. Miner Pick states she will continue to apply felt offloading pad to the first metatarsal plantarly. She states that she would like to be seen in the office for a pair of extra-depth protective shoes. I informed the patient that she is not a diabetic and thus likely would not qualify through her insurance for the shoes. Patient is to continue to elevate the lower extremities in addition to wearing her Tubigrip stockings to aid in edema control. I have discussed with patient that as she has her feet elevated she is to dorsiflex and plantarflex her foot a few times to aid in venous return by utilization of her calf muscle. Patient voices understanding of this. I reviewed the patient's case. The etiology of thickened toenails was briefly reviewed including fungus or microtrauma. The nails 1, 2, 3, 4, 5 bilaterally were debrided with a nail nipper after verbal consent was obtained without incident. The nails were debrided in length and thickness to reduce pressure, potential fungal load, and to prevent wound formation. The patient tolerated this well. The patient elects proceed with palliative care only at this time with the nails and will hold off on further work-up. To follow-up with the [facility] if needed in the future for this condition. To wear protective and supportive shoes. To check feet daily and keep webspaces clean and dry. To moisturize skin to preserve skin integrity was also recommended. I reviewed and discussed his case today. Debridement was performed today as noted in the clinical panel to all of the ulcer sites. The following work up and care recommendations were made: Dressing: Tommy anterior left leg; Tommy left hallux, 2 x 2 gauze, cotton, Coban and an offloading pad to the first metatarsophalangeal joint Wash: Soap and water Tissue growth optimization: Tommy Offload: Offloading dressing of the first MTPJ and left hallux Vascular: Vascular status intact with palpable pedal pulses Edema: Elevation of the left lower extremity to control edema Infection: No localized signs of infection present Pain: May take [id number] Tylenol, safe oral anti-inflammatory use was discussed Host factors: Chronic venous insufficiency I answered all the patient's questions. To return to the wound healing center in 1 week or call sooner if the patient has any questions or concerns. Note: [employer] speech recognition mixer blender software was used to create portions of this document. Sound-alike and misspelled words, as well as other mixer blender errors may be contained in the documentation.
[2021-09-18 10:14] VITALS: BP 110/62; PULSE 74; TEMP 36.1; BMI 25.7
--- NOTE | 2021-09-18 10:33 | PN.PCM_ITS ---
History of Present Illness Date of Service: 09/18/21 Chief Complaint: Left leg swelling and left anterior leg ulceration, left hallux plantar wound History of Wound: Patient has been treated with Tommy to both ulceration sites and an offloading pad to the left hallux. Subjective Subjective This is an 86-year-old female who presents today to the wound care center for follow-up of left lower extremity ulceration and left hallux ulceration overlying the interphalangeal joint. She denies any nausea, vomiting, chills, fever, shortness of breath, or other constitutional symptoms. Her health aide social and human services assistant is present with her today and continues to help her change her dressings daily and applies an offloading pad to the first metatarsal head to offload the hallux distally. She denies any complaints today. Objective Data Objective Data Vital Signs: Vital Signs Temp Pulse Resp BP 96.9 F L 74 16 110/62 09/18/21 10:14 09/18/21 10:14 09/11/21 10:54 09/18/21 10:14 Oxygen Delivery Method Room Air Weight: 70.307 kg Body Mass Index (BMI) 25.7 Physical Exam Const alert, oriented x3 and no apparent distress General Appearance: cooperative and comfortable HEENT normocephalic Eyes General Eye: normal appearance of both eyes Neck General: normal visual inspection Lymph Lymphatic: no lymphadenopathy noted and no lymphedema noted Resp normal respiratory effort Cardio regular rate and regular rhythm Skin no rashes or lesions noted and skin turgor normal Skin Narrative: Skin intact with brawny discoloration and hemosiderin deposition left lower extremity secondary to venous insufficiency/stasis. Left lower extremity ulceration anterior with localized rubor and granular tissue in the wound bed, no malodor, no purulence or other localized signs of infection, adjacent skin is atrophic and thin. Left hallux IPJ some hyperkeratotic tissue noted with no localized erythema, purulent drainage, malodor, red streaking or other localized signs of infection. Left Lower Extremity: foot and digits Positive for ROM (Decreased hallux range of motion secondary to end-stage arthritis of the first metatarsophalangeal andrey int without pain or crepitus.) General Skin Exam: venous stasis Wound Narrative: Left lower extremity ulceration anterior with no localized rubor and granular tissue in the wound bed, no malodor, no purulence or other localized signs of infection, adjacent skin is atrophic and thin. Left hallux IPJ some hyperkeratotic tissue noted secondary to decreased range of motion of the hallux. With no localized erythema, purulent drainage, or malodor, or red streaking. Neuro Motor Exam: strength 5/5 throughout Debridement Note Debridement Note Wound debrided: Left anterior lower extremity Laterality: Left Wound Grade/Stage: Russell stage I Type of Debridement: Excisional debridement Anesthesia Used: 5% Lidocaine Gel and Cetacaine Depth: in the subcutaneous layer Percentage of wound debrided: 100 Instrument Used: 3mm curette Tissue Removed: Fibrous, devitalized subcutaneous, biofilm, slough Severity: Fat Layer Exposed Amount of bleeding with debridement: Mild Bleeding Controlled with: Pressure Patient tolerated procedure: Patient tolerated procedure well Post-Debridement Measurements and Additional Note: Post-Debridement Measurements/Treatment - Nurse 1 - General Ulcer Assessment Start: 09/04/21 10:29 Freq: Status: Active Protocol: ALEX Activity Type Activity Date Activity User E-Sign Co-Sign Detail Recorded Client Recorded Date Recorded By Document 09/04/21 10:29 [id number] 09/04/21 10:41 Document 09/11/21 10:54 [facility] [id number] 09/11/21 11:00 [facility] Document 09/18/21 10:14 PA [id number] 09/18/21 10:18 PA 09/04/21 09/11/21 09/18/21 10:29 10:54 10:14 - Today's Visit Information Type of service Follow-up Visit Follow-up Visit Follow-up Visit (Physician/TOOL TURRET LATHE SET UP OPERATOR (Physician/TOOL TURRET LATHE SET UP OPERATOR (Physician/TOOL TURRET LATHE SET UP OPERATOR ) ) ) Arrival Mode Ambulatory,Cane Ambulatory Ambulatory,Cane Transfer Assistance None Accompanied by caregiver caregiver Patient Identification Verified (Name & Yes Yes Yes ) Patient Requires Transmission-Based No No Precautions Safety Precautions NA Height and Weight Body Mass Index (BMI) 25.7 25.7 25.7 BMI Classification Overweight Overweight Overweight Vital Signs Temperature (97.8 F-99.1 F) 97.4 F L 96.2 F L 96.9 F L Temperature Source Temporal Temporal Temporal Pulse Rate (60-100) 91 74 Pulse Location Monitor Monitor Respiratory Rate (12-18) 16 Respiratory rate source Observation Oxygen Delivery Method Room Air Blood Pressure (90/60-120/80) 131/64 H 110/62 Blood Pressure Mean (mm Hg) 86 78 Source Monitor Monitor Position Sitting Blood Pressure Location Left Arm History Since Last Visit- (Skip if this is Patient's initial visit) Have you changed medications since your No No No last visit? Any new allergies or adverse reactions No No No Had a fall/change in ADL's that may No No No increase risk of falls Signs or symptoms of abuse and/or No No No neglect since last visit Have you been in the hospital since your No No No last visit? Has dressing in place as prescribed Yes Yes Yes Has compression in place as prescribed Yes No Yes Has offloadiing in place as prescribed N/A N/A N/A Experienced any changes in pain level or No No No management Left Footwear Regular Shoe Regular Shoe Regular Shoe Right Footwear Regular Shoe Regular Shoe Regular Shoe Pain Scale: 0-10 Numeric Is Patient Pain Free? Yes Yes Yes WC - Nurse 1 - General Ulcer Measurement Start: 09/04/21 10:29 Freq: Status: Active Protocol: Activity Type Activity Date Activity User E-Sign Co-Sign Detail Recorded Client Recorded Date Recorded By Document 09/04/21 10:29 [id number] 09/04/21 10:41 Document 09/11/21 10:54 [facility] [id number] 09/11/21 11:00 [facility] Document 09/18/21 10:14 PA [id number] 09/18/21 10:18 [place] 09/04/21 09/11/21 09/18/21 10:29 10:54 10:14 Wound Center Nurse 1 #2 Left Gr Toe -Combined with other wound No No No -Current Size (cm) - Length 0.1 0.4 0.1 -Current Size (cm) - Width 0.1 0.5 0.1 -Current Size (cm) - Depth 0.1 0.1 0.1 -Total Square Cm 0.01 0.20 0.01 -Photo Taken Yes No No -Epithelialization Small 1-33% Small 1-33% -Tunneling No No No -Undermining/Tunneling No No No -Circular Undermining No No No -Change in Wound Grade/Stage No -Exudate Amt None Present Small None Present -Exudate Type Serous -Wound Margin Indistinct, Non Distinct, Distinct, -Visible Outline Outline Attached Attached -Granulation Amt None Present (0 Large (67-100%) None Present (0 %) %) -Granulation Quality [place] N/A -Slough/Fibrin Yes Yes No -Necrosis Amt Small (1-33%) Small (1-33%) None Present (0 %) -Necrotic Tissue Type Adherent Slough Adherent Slough -Structure Exposed Fat Layer N/A Exposed -Texture (Vangie-wound Skin Appearance) Assessed,Callus Assessed,Callus Assessed,Callus ,Scarring -Moisture (Vangie-wound Skin Appearance) Assessed,Dry/ No Abnormality, Assessed Scaly Dry/Scaly -Color (Vangie-wound Skin Appearance) Assessed Assessed Assessed -Temperature (Vangie-wound Skin No Abnormality No Abnormality No Abnormality Appearance) (Pt Warm) (Pt Warm) (Pt Warm) -Tenderness on Palpation (Vangie-wound No No No Skin Appearance) -Ulcer Cleansing Rinsed/ Rinsed/ Rinsed/ Irrigated with Irrigated with Irrigated with Saline Saline Saline -Foul Odor after Cleansing No No No -Anesthetic Used 5% Lidocaine 5% Lidocaine 5% Lidocaine Gel Gel Gel #3 left anterior leg -Combined with other wound No No No -Current Size (cm) - Length 1.8 1.9 1.8 -Current Size (cm) - Width 1.0 1 0.8 -Current Size (cm) - Depth 0.2 0.1 0.2 -Total Square Cm 1.80 1.9 1.44 -Photo Taken Yes No No -Epithelialization Small 1-33% None Present None Present -Tunneling No No No -Undermining/Tunneling No No No -Circular Undermining No No No -Classification - Thickness Partial Thickness -Exudate Amt Small Small Small -Exudate Type Serosanguineous Serous Serosanguineous -Wound Margin Flat & Intact Distinct, Distinct, Outline Outline Attached Attached -Granulation Amt Large (67-100%) Large (67-100%) None Present (0 %) -Granulation Quality [place] N/A -Slough/Fibrin Yes Yes Yes -Necrosis Amt Small (1-33%) Small (1-33%) Small (1-33%) -Necrotic Tissue Type Adherent Slough Adherent Slough Adherent Slough -Structure Exposed N/A N/A -Texture (Vangie-wound Skin Appearance) Assessed, Assessed, No Abnormality, Localized Edema Scarring Assessed -Moisture (Vangie-wound Skin Appearance) Assessed,Dry/ Assessed,Dry/ No Abnormality, Scaly Scaly Assessed -Color (Vangie-wound Skin Appearance) Assessed Assessed No Abnormality, Assessed -Temperature (Vangie-wound Skin No Abnormality No Abnormality No Abnormality Appearance) (Pt Warm) (Pt Warm) (Pt Warm) -Tenderness on Palpation (Vangie-wound No No No Skin Appearance) -Ulcer Cleansing Rinsed/ Rinsed/ Rinsed/ Irrigated with Irrigated with Irrigated with Saline Saline Saline -Foul Odor after Cleansing No No No -Anesthetic Used 5% Lidocaine 5% Lidocaine 5% Lidocaine Gel Gel Gel Lower Limb Edema Present Yes Yes No Left Calf (cm) 35.8 36 36 Left Ankle (cm) 23.3 23.5 23.3 WC - Nurse 2 - General Ulcer CM Notes Start: 09/04/21 10:29 Freq: Status: Active Protocol: Activity Type Activity Date Activity User E-Sign Co-Sign Detail Recorded Client Recorded Date Recorded By Document 09/04/21 12:58 PL [id number] 09/04/21 12:59 PL Document 09/11/21 12:44 PL [id number] 09/11/21 12:50 PL 09/04/21 09/11/21 12:58 12:44 Wound Center Nurse 2 #2 Left Gr Toe -Time 11:08 11:15 -Correct Patient Yes Yes -Correct Side, Site, Position Yes Yes -Correct Procedure Yes Yes -Procedure Performed Yes Yes -Type of Procedure Debridement Debridement -Clinical Debridement Subcutaneous Subcutaneous -Tissue Removed Subcutaneous Subcutaneous -Post Debridement (cm) - Length 0.1 0.4 -Post Debridement (cm) - Width 0.1 0.5 -Post Debridement (cm) - Depth 0.1 0.1 -Total Square (Post) (cm) 0.01 0.20 -Area of Debridement (cm) - Length 0.1 0.4 -Area of Debridement (cm) - Width 0.1 0.5 -Total Square (Area) (cm) 0.01 0.20 -Tunneling No No -Undermining/Tunneling No No -Circular Undermining No No -Wound/Ulcer Outcome Not Healed Not Healed -Ulcer Cleansing Rinsed/ Rinsed/ Irrigated with Irrigated with Saline Saline -Foul Odor after Cleansing No No -Bioengineered Tissue No No -Bleeding Controlled with Pressure Pressure -Treatment Response Procedure Procedure Tolerated Well Tolerated Well -Debridement - Subq, 1st 20sq cm No Yes #3 left anterior leg -Time 11:08 11:15 -Correct Patient Yes Yes -Correct Side, Site, Position Yes Yes -Correct Procedure Yes Yes -Procedure Performed Yes Yes -Type of Procedure Debridement Debridement -Clinical Debridement Subcutaneous Subcutaneous -Tissue Removed Subcutaneous Subcutaneous -Post Debridement (cm) - Length 1.8 1.9 -Post Debridement (cm) - Width 1.0 1.0 -Post Debridement (cm) - Depth 0.2 0.1 -Total Square (Post) (cm) 1.80 1.90 -Area of Debridement (cm) - Length 1.8 1.9 -Area of Debridement (cm) - Width 1.0 1.0 -Total Square (Area) (cm) 1.80 1.90 -Tunneling No No -Undermining/Tunneling No No -Circular Undermining No No -Wound/Ulcer Outcome Not Healed Not Healed -Ulcer Cleansing Rinsed/ Rinsed/ Irrigated with Irrigated with Saline Saline -Foul Odor after Cleansing No No -Bioengineered Tissue No No -Bleeding Controlled with Pressure Pressure -Treatment Response Procedure Procedure Tolerated Well Tolerated Well -Debridement - Subq, 1st 20sq cm Yes No Pain Scale: 0-10 Numeric Is Patient Pain Free? Yes Yes - Nurse 3 - General Ulcer D/C NN Start: 09/04/21 10:29 Freq: Status: Active Protocol: Activity Type Activity Date Activity User E-Sign Co-Sign Detail Recorded Client Recorded Date Recorded By Document 09/04/21 11:32 [id number] 09/04/21 11:34 Document 09/11/21 12:05 AK [id number] 09/11/21 12:05 AK 09/04/21 09/11/21 11:32 12:05 Wound Care Nurse 3 #2 Left Gr Toe -Ulcer Cleansing Rinsed/ Rinsed/ Irrigated with Irrigated with Saline Saline -Foul Odor after Cleansing No No -Negative Pressure Wound Therapy N/A -Primary Dressing Applied Promogran Aquacel AG 4x4 Tommy Matter -Other Dressing moistened tommy -Primary Dressing Covered/Secured with Dry Gauze, Dry Gauze, Secured with Secured with Tape Tape -Aquacel AG 4x4 1 -Promogran Tommy Matter 1 #3 left anterior leg -Ulcer Cleansing Rinsed/ Rinsed/ Irrigated with Irrigated with Saline Saline -Foul Odor after Cleansing No No -Negative Pressure Wound Therapy N/A -Primary Dressing Applied Promogran Aquacel AG 4x4 Tommy Matter -Primary Dressing Covered/Secured with Dry Gauze, Dry Gauze, Secured with Secured with Tape Tape -Aquacel AG 4x4 0 -Promogran Tommy Matter 0 Left -Compression Wrap Francisco Javier Wrap -Other Patient left her tubigrips at home so an francisco javier wrap was applied. Pain Scale: 0-10 Numeric Is Patient Pain Free? Yes Yes WC - Visit Discharge Discharge Condition Stable Ambulatory Status Ambulatory,Cane Transportation Private Auto Accompanied by care attendant Medication Reconcilliation completed & Yes provided to patient/care provider Clinical Summary of Care Provided Yes Additional Wound Wound debrided: Plantar left hallux Laterality: Left Wound Grade/Stage: Russell stage I Type of Debridement: Excisional debridement Anesthesia Used: 5% Lidocaine Gel Depth: in the subcutaneous layer Percentage of wound debrided: 100 Instrument Used: #15 blade Tissue Removed: Fibrous, devitalized subcutaneous, biofilm, slough Severity: Fat Layer Exposed Amount of bleeding with debridement: Mild Bleeding Controlled with: Pressure Patient tolerated procedure: Patient tolerated procedure well Assessment/Plan Assessment/Plan (1) Non-pressure 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: CODE(S): L97.522 - Non-pressure 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 (2) Non-pressure chronic ulcer of left calf with fat layer exposed: CODE(S): L97.222 - Non-pressure chronic ulcer of left calf with fat layer exposed (3) Varicose veins of left lower extremity with ulcer of calf: CODE(S): I83.022 - Varicose veins of left lower extremity with ulcer of calf (4) Chronic venous insufficiency: (5) Leg edema, left: CODE(S): R60.0 - Localized edema (6) COPD (chronic obstructive pulmonary disease): CODE(S): J44.9 - Chronic obstructive pulmonary disease, unspecified (7) Spinal stenosis: CODE(S): M48.00 - Spinal stenosis, site unspecified (8) Back pain: CODE(S): M54.9 - Dorsalgia, unspecified (9) Edema leg: CODE(S): R60.0 - Localized edema PLAN: This is an 86-year-old female with history of COPD and spinal stenosis who presents to the wound care clinic for follow-up of left lower extremity anterior ulceration secondary to chronic venous insufficiency. She also has a left medial hallux IPJ ulceration secondary to decreased range of motion at the first metatarsophalangeal joint due to end-stage arthritis. She had venous studies performed confirming reflux of the left great saphenous vein and no deep venous thrombosis bilaterally. Ulceration site anterior left lower extremity, Russell stage I, was debrided sharply with a 3 mm curette. Ulceration site is continuing to show progression decreasing in size. Debridement performed to remove fibrous, devitalized tissue, biofilm, slough. Left lower extremity anterior ulceration site demonstrates no localized signs of infection. I debrided the left hallux medial IPJ hyperkeratotic tissue with a #15 blade removing all nonviable tissue, devitalized subcutaneous, biofilm, and slough of this Russell stage I ulceration. Left hallux demonstrates no erythema, no purulence, proximal red streaking or other localized signs of infection. Left hallux ulceration site is showing progression of decreasing size overall with less callus buildup. This wound is nearing closure. Patient continues to offload the first metatarsophalangeal joint and the hallux with an offloading pad. Instructed patient and slurry blender to continue to offload this as this is zepeda to decreasing pressure and healing this ulceration. Ulceration site anterior left lower extremity was dressed with Tommy, dry sterile dressing, and a Tubigrip. Left hallux ulceration site was dressed with Tommy, 2 x 2 gauze, cotton padding, Coban and an offloading pad to the first metatarsophalangeal joint. I discussed continued offloading of the hallux ulceration site with the felt pads, surgical shoe, or foam inserts. Weight Recorder states she will continue to apply felt offloading pad to the first metatarsal plantarly. She states that she would like to be seen in the office for a pair of extra-depth protective shoes. I informed the patient that she is not a diabetic and thus likely would not qualify through her insurance for the shoes. She states she had called the office about the shoes and the office will get back to her with pricing. Patient is to continue to elevate the lower extremities in addition to wearing her Tubigrip stockings to aid in edema control. I have discussed with patient that as she has her feet elevated she is to dorsiflex and plantarflex her foot a few times to aid in venous return by utilization of her calf muscle. Patient voices understanding of this. I reviewed and discussed his case today. Debridement was performed today as noted in the clinical panel to all of the ulcer sites. The following work up and care recommendations were made: Dressing: Tommy anterior left leg; Tommy left hallux, 2 x 2 gauze, cotton, Coban and an offloading pad to the first metatarsophalangeal joint Wash: Soap and water Tissue growth optimization: Tommy Offload: Offloading dressing of the first MTPJ and left hallux Vascular: Vascular status intact with palpable pedal pulses Edema: Elevation of the left lower extremity to control edema Infection: No localized signs of infection present Pain: May take [id number] Tylenol, safe oral anti-inflammatory use was discussed Host factors: Chronic venous insufficiency I answered all the patient's questions. To return to the wound healing center in 1 week or call sooner if the patient has any questions or concerns. Note: [employer] speech recognition agricultural technical officer software was used to create portions of this document. Sound-alike and misspelled words, as well as other agricultural technical officer errors may be contained in the documentation.
== END 2021-09-22 23:59 | disposition home or self-care (01) ==
LOC: WC 10:00
PROVIDERS: PCP Family Medicine; Visit Provider Student in an Organized Health Care Education/Training Program
DX: L97.522 Non-pressure 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 (principal); L97.222 Non-pressure chronic ulcer of left calf with fat layer exposed; I83.022 Varicose veins of left lower extremity with ulcer of calf; J44.9 Chronic obstructive pulmonary disease, unspecified; M48.00 Spinal stenosis, site unspecified; R60.0 Localized edema; I87.2 Venous insufficiency (chronic) (peripheral); M54.9 Dorsalgia, unspecified
CPT/HCPCS: 11042

== ENCOUNTER 2021-10-23 10:00 | Outpatient (RCR) | payer MEDICARE, OTHER, SELFPAY ==
[2021-09-23 00:37] VITALS: BP 110/62; PULSE 74; RESP 16; TEMP 36.1; BMI 25.7
--- NOTE | 2021-09-25 12:57 | PN.PCM_ITS ---
History of Present Illness Date of Service: 09/25/21 Chief Complaint: Left leg swelling and left anterior leg ulceration, left hallux plantar wound History of Wound: Patient has been treated with Chuyita to both ulceration sites and an offloading pad to the left hallux. Subjective Subjective This is an 86-year-old female who presents today to the wound care center for follow-up of left lower extremity ulceration and left hallux ulceration overlying the interphalangeal joint. She denies any nausea, vomiting, chills, fever, shortness of breath, or other constitutional symptoms. Her health aide assistant principal is present with her today and continues to help her change her dressings daily and applies an offloading pad to the first metatarsal head to offload the hallux distally. She states that she scratched herself on her right lower extremity creating a new wound and a subsequent wound later opened at the right lateral malleolus. She denies any complaints today. Objective Data Objective Data Vital Signs: Vital Signs Temp Pulse Resp BP 96.9 F L 74 16 110/62 09/23/21 00:37 09/23/21 00:37 09/23/21 00:37 09/23/21 00:37 Weight: 70.307 kg Body Mass Index (BMI) 25.7 Physical Exam Const alert, oriented x3 and no apparent distress General Appearance: cooperative and comfortable Eyes General Eye: normal appearance of both eyes Neck General: normal visual inspection Lymph Lymphatic: no lymphadenopathy noted and no lymphedema noted Resp normal respiratory effort Cardio regular rate and regular rhythm Extremity Left Lower Extremity: foot and digits Positive for ROM (Decreased hallux range of motion 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 Left lower extremity ulceration anterior with localized rubor and granular tissue in the wound bed, no malodor, no purulence or other localized signs of infection, adjacent skin is atrophic and thin. Left hallux IPJ some hyperkeratotic tissue noted with no localized erythema, purulent drainage, malodor, red streaking or other localized signs of infection. Right lower extremity ulceration anterior lateral secondary to scratching herself. Site demonstrates no localized erythema, malodor, purulent drainage, or other localized signs of infection. Right distal lateral wound just posterior to the lateral malleolus secondary to venous insufficiency demonstrates granular base with mixed fibrotic tissue and no localized signs of infection. General Skin Exam: venous stasis Neuro oriented x3 and moves all extremities Motor Exam: strength 5/5 throughout Debridement Note Debridement Note Wound debrided: Left anterior lower extremity Laterality: Left Wound Grade/Stage: Russell stage I Type of Debridement: Excisional debridement Anesthesia Used: 5% Lidocaine Gel and Cetacaine Depth: in the subcutaneous layer Percentage of wound debrided: 100 Instrument Used: 3mm curette Tissue Removed: Fibrous, devitalized subcutaneous, biofilm, slough Severity: Fat Layer Exposed Amount of bleeding with debridement: Mild Bleeding Controlled with: Pressure Patient tolerated procedure: Patient tolerated procedure well Additional Wound Wound debrided: Plantar left hallux Laterality: Left Type of Debridement: Excisional debridement Anesthesia Used: 5% Lidocaine Gel Depth: in the subcutaneous layer Percentage of wound debrided: 100 Instrument Used: #15 blade Tissue Removed: Hyperkeratotic, fibrous, devitalized subcutaneous, biofilm, slough Severity: Fat Layer Exposed Amount of bleeding with debridement: Mild Bleeding Controlled with: Pressure Patient tolerated procedure: Patient tolerated procedure well Additional Wound Wound debrided: Right anterior lateral lower extremity Laterality: Right Wound Grade/Stage: Russell stage I Type of Debridement: Excisional debridement Anesthesia Used: 5% Lidocaine Gel and Cetacaine Depth: in the subcutaneous layer Percentage of wound debrided: 100 Instrument Used: 3mm curette Tissue Removed: Fibrous, devitalized subcutaneous, biofilm, slough Severity: Fat Layer Exposed Amount of bleeding with debridement: Mild Bleeding Controlled with: Pressure Patient tolerated procedure: Patient tolerated procedure well Additional Wound Wound debrided: Right lateral malleolus Laterality: Right Wound Grade/Stage: Russell stage I Type of Debridement: Excisional debridement Anesthesia Used: 5% Lidocaine Gel Depth: in the subcutaneous layer Percentage of wound debrided: 100 Instrument Used: #15 blade Tissue Removed: Fibrous, devitalized subcutaneous, biofilm, slough Severity: Fat Layer Exposed Amount of bleeding with debridement: Mild Bleeding Controlled with: Pressure Patient tolerated procedure: Patient tolerated procedure well Assessment/Plan Assessment/Plan (1) Non-pressure 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: CODE(S): L97.522 - Non-pressure 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 (2) Non-pressure chronic ulcer of left calf with fat layer exposed: CODE(S): L97.222 - Non-pressure chronic ulcer of left calf with fat layer exposed (3) Varicose veins of left lower extremity with ulcer of calf: CODE(S): I83.022 - Varicose veins of left lower extremity with ulcer of calf (4) Chronic venous insufficiency: (5) Leg edema, left: CODE(S): R60.0 - Localized edema (6) COPD (chronic obstructive pulmonary disease): CODE(S): J44.9 - Chronic obstructive pulmonary disease, unspecified (7) Spinal stenosis: CODE(S): M48.00 - Spinal stenosis, site unspecified (8) Back pain: CODE(S): M54.9 - Dorsalgia, unspecified (9) Edema leg: CODE(S): R60.0 - Localized edema (10) Non-pressure chronic ulcer of right calf with fat layer exposed: CODE(S): L97.212 - Non-pressure chronic ulcer of right calf with fat layer exposed (11) Non-pressure chronic ulcer of right ankle with fat layer exposed: CODE(S): L97.312 - Non-pressure chronic ulcer of right ankle with fat layer exposed PLAN: This is an 86-year-old female with history of COPD and spinal stenosis who presents to the wound care clinic for follow-up of left lower extremity anterior ulceration secondary to chronic venous insufficiency. She also has a left medial hallux IPJ ulceration secondary to decreased range of motion at the first metatarsophalangeal joint due to end-stage arthritis. She had venous studies performed confirming reflux of the left great saphenous vein with no deep venous thrombosis bilaterally. Today she has new onset right anterior lateral leg ulceration secondary to scratching herself and right ankle ulceration posterior to the lateral malleolus secondary to venous insufficiency. Ulceration site left lower extremity, Russell stage I, was debrided sharply with a 3 mm curette. Ulceration site is continuing to stop progression and decreasing in size. Debridement performed to remove fibrous, devitalized tissue, biofilm, and slough. Left lower extremity anterior ulceration site demonstrates no localized signs of infection. I debrided the left hallux medial IPJ hyperkeratotic tissue with a #15 blade removing all nonviable tissue, devitalized subcutaneous, biofilm, and slough of this Russell stage I ulceration. Left hallux demonstrates no erythema, no purulence, no proximal red streaking or other localized signs of infection. Left hallux ulceration site is showing progression and decreasing in size overall with less callus buildup. This wound is nearing closure. Patient continues to offload the first metatarsophalangeal joint and hallux with an offloading pad to the plantar first metatarsal head. Instructed patient and dowel sticker operator to continue to offload the site as this is zepeda to decreasing pressure and healing this ulceration on the plantar hallux. Patient has developed new wounds to the right anterior lateral lower extremity and right ankle posterior to the lateral malleolus. These ulceration sites were sharply debrided with a 3 mm curette and #15 blade respectively. Ulceration sites dressed with Chuyita dry sterile dressing and Tubigrip applied to the bilateral lower extremities. Hallux ulceration site was dressed with Chuyita, 2 x 2 gauze, cotton padding, Coban and an offloading pad to the first metatarsophalangeal joint. I discussed continued offloading of the hallux ulceration site with felt pads, surgical shoe, or foam inserts. President & Founder states she will continue to apply the felt offloading pads to the first metatarsal head plantarly. Patient is set to follow-up later today in office for a pair of extra-depth protective shoes. I informed the patient that she is not diabetic and thus will likely not qualify through her insurance for the shoes. She states that she is willing to be a self-pay for the shoes. Patient to continue to elevate lower extremities in addition to wearing her Tubigrip compression stockings bilateral to aid in edema control. I discussed with her that she is to continue to elevate her feet at times of rest and dorsiflex and plantarflex her foot a few times to aid in venous return by utilization of her calf muscle. Patient voices understanding of this. I reviewed and discussed his case today. Debridement was performed today as noted in the clinical panel to all of the ulcer sites. The following work up and care recommendations were made: Dressing: Chuyita anterior left leg and right leg; Chuyita right ankle; Chuyita left hallux, 2 x 2 gauze, cotton, Coban and an offloading pad to the first metatarsophalangeal joint Wash: Soap and water Tissue growth optimization: Chuyita Offload: Offloading dressing of the first metatarsophalangeal joint and left hallux Vascular: Vascular status intact with palpable pedal pulses Edema: Elevation of the left lower extremity and right lower extremity control to control edema. Patient instructed to wear Tubigrip stockings Infection: No localized signs of infection Pain: May take [id number] Tylenol, safe oral anti-inflammatory use discussed. Host factors: Chronic venous insufficiency I answered all the patient's questions. To return to the wound healing center in 1 week or call sooner if the patient has any questions or concerns. Note: [employer] speech recognition screed person software was used to create portions of this document. Sound-alike and misspelled words, as well as other screed person errors may be contained in the documentation.
[2021-09-25 13:31] VITALS: BP 161/81; PULSE 85; RESP 18; TEMP 35.6; BMI 25.7
[2021-10-02 10:07] VITALS: BP 132/74; PULSE 81; TEMP 36.1; BMI 25.7
--- NOTE | 2021-10-02 13:34 | PCM.WC.PN ---
History of Present Illness Date of Service: 10/02/21 Chief Complaint: Left leg swelling and left anterior leg ulceration, left hallux plantar wound History of Wound: Patient has been treated with Chuyita to both ulceration sites and an offloading pad to the left hallux. Subjective Subjective This is an 86-year-old female who presents today to the wound care center for follow-up of left lower extremity ulceration and left hallux ulceration overlying the interphalangeal joint. She denies any nausea, vomiting, chills, fever, shortness of breath, or other constitutional symptoms. Her health aide assistant elementary teacher is present with her today and continues to help her change her dressings daily and applies an offloading pad to the first metatarsal head to offload the hallux distally. She also has wounds on her right lower extremity secondary to scratching herself and a wound right lateral malleolus. She denies any complaints today. Objective Data Objective Data Vital Signs: Vital Signs Temp Pulse Resp BP 97.0 F L 81 18 132/74 H 10/02/21 10:07 10/02/21 10:07 09/25/21 13:31 10/02/21 10:07 Weight: 70.307 kg Body Mass Index (BMI) 25.7 Physical Exam Const alert, oriented x3 and no apparent distress General Appearance: cooperative and comfortable Eyes General Eye: normal appearance of both eyes Neck General: normal visual inspection Lymph Lymphatic: no lymphadenopathy noted and no lymphedema noted Resp normal respiratory effort Cardio regular rate and regular rhythm Extremity Left Lower Extremity: foot and digits Positive for ROM (Decreased hallux range of motion 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 Left lower extremity ulceration anterior with localized rubor and granular tissue in the wound bed, no malodor, no purulence or other localized signs of infection, adjacent skin is atrophic and thin. Left hallux IPJ some hyperkeratotic tissue noted with no localized erythema, purulent drainage, malodor, red streaking or other localized signs of infection. Right lower extremity ulceration anterior lateral secondary to scratching herself. Site demonstrates no localized erythema, malodor, purulent drainage, or other localized signs of infection. Right distal lateral wound just posterior to the lateral malleolus secondary to venous insufficiency demonstrates granular base with mixed fibrotic tissue and no localized signs of infection. General Skin Exam: venous stasis Neuro oriented x3 and moves all extremities Motor Exam: strength 5/5 throughout Debridement Note Debridement Note Wound debrided: Left anterior lower extremity Laterality: Left Wound Grade/Stage: Russell stage I Type of Debridement: Excisional debridement Anesthesia Used: 5% Lidocaine Gel Depth: in the subcutaneous layer Percentage of wound debrided: 100 Instrument Used: 3mm curette Tissue Removed: Fibrous, devitalized subcutaneous, biofilm, slough Severity: Fat Layer Exposed Amount of bleeding with debridement: Mild Bleeding Controlled with: Pressure Patient tolerated procedure: Patient tolerated procedure well Post-Debridement Measurements and Additional Note: Post-Debridement Measurements/Treatment - Nurse 1 - General Ulcer Assessment Start: 09/25/21 12:46 Freq: Status: Active Protocol: ALEX Activity Type Activity Date Activity User E-Sign Co-Sign Detail Recorded Client Recorded Date Recorded By Document 09/25/21 13:31 [id number] 09/25/21 13:36 Document 10/02/21 10:07 TORSTEN [id number] 10/02/21 10:21 09/25/21 10/02/21 13:31 10:07 - Today's Visit Information Type of service Follow-up Visit Follow-up Visit (Physician/THEATRICAL AGENT (Physician/THEATRICAL AGENT ) ) Arrival Mode Ambulatory Ambulatory Accompanied by caregiver Patient Identification Verified (Name & Yes Yes ) Patient Requires Transmission-Based No Precautions Height and Weight Body Mass Index (BMI) 25.7 25.7 BMI Classification Overweight Overweight Vital Signs Temperature (97.8 F-99.1 F) 96.1 F L 97.0 F L Temperature Source Temporal Temporal Pulse Rate (60-100) 85 81 Pulse Location Monitor Monitor Respiratory Rate (12-18) 18 Respiratory rate source Observation Blood Pressure (90/60-120/80) 161/81 H 132/74 H Blood Pressure Mean (mm Hg) 107 93 Source Monitor Monitor Position Semi-Fowlers Sitting Blood Pressure Location Right Arm Left Arm History Since Last Visit- (Skip if this is Patient's initial visit) Have you changed medications since your No No last visit? Any new allergies or adverse reactions No No Had a fall/change in ADL's that may No No increase risk of falls Signs or symptoms of abuse and/or No No neglect since last visit Have you been in the hospital since your No No last visit? Has dressing in place as prescribed Yes Yes Has compression in place as prescribed No N/A Has offloadiing in place as prescribed N/A N/A Experienced any changes in pain level or No No management Left Footwear Regular Shoe Regular Shoe Right Footwear Regular Shoe Regular Shoe Pain Scale: 0-10 Numeric Is Patient Pain Free? Yes Yes WC - Nurse 1 - General Ulcer Measurement Start: 09/25/21 12:46 Freq: Status: Active Protocol: Activity Type Activity Date Activity User E-Sign Co-Sign Detail Recorded Client Recorded Date Recorded By Document 09/25/21 13:31 JAVIER [id number] 09/25/21 13:36 Document 10/02/21 10:07 TORSTEN [id number] 10/02/21 10:21 KR 09/25/21 10/02/21 13:31 10:07 Wound Center Nurse 1 #6 right lower leg -Combined with other wound No -Current Size (cm) - Length 0.8 0.1 -Current Size (cm) - Width 0.7 0.1 -Current Size (cm) - Depth 0.1 0.1 -Total Square Cm 0.56 0.01 -Photo Taken Yes -Epithelialization Small 1-33% -Tunneling No -Undermining/Tunneling No -Circular Undermining No -Classification - 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) -Exudate Amt Small -Exudate Type Serosanguineous -Wound Margin Flat & Intact -Granulation Amt Small (1-33%) -Granulation Quality [place] -Slough/Fibrin Yes -Necrosis Amt Small (1-33%) -Necrotic Tissue Type Adherent Slough -Structure Exposed N/A -Texture (Vangie-wound Skin Appearance) Assessed -Moisture (Vangie-wound Skin Appearance) Assessed,Dry/ Scaly -Color (Vangie-wound Skin Appearance) Assessed -Temperature (Vangie-wound Skin No Abnormality No Abnormality Appearance) (Pt Warm) (Pt Warm) -Tenderness on Palpation (Vangie-wound No No Skin Appearance) -Ulcer Cleansing Rinsed/ Rinsed/ Irrigated with Irrigated with Saline Saline -Foul Odor after Cleansing No No -Anesthetic Used 4% Lidocaine 5% Lidocaine Solution Gel #5 r lateral ankle -Combined with other wound No -Current Size (cm) - Length 0.3 0.2 -Current Size (cm) - Width 0.4 2 -Current Size (cm) - Depth 0.1 0.1 -Total Square Cm 0.12 0.4 -Photo Taken No -Epithelialization Small 1-33% -Tunneling No -Undermining/Tunneling No -Circular Undermining No -Classification - 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) -Exudate Amt Small Small -Exudate Type Serosanguineous Serosanguineous -Wound Margin Flat & Intact Distinct, Outline Attached -Granulation Amt Medium (34-66%) Small (1-33%) -Granulation Quality Red Red -Slough/Fibrin Yes -Necrosis Amt Small (1-33%) Small (1-33%) -Necrotic Tissue Type Adherent Slough Adherent Slough -Structure Exposed N/A -Texture (Vangie-wound Skin Appearance) Assessed Assessed, Scarring -Moisture (Vangie-wound Skin Appearance) Assessed,Dry/ Assessed,Dry/ Scaly Scaly -Color (Vangie-wound Skin Appearance) Assessed No Abnormality, Assessed -Temperature (Vangie-wound Skin No Abnormality No Abnormality Appearance) (Pt Warm) (Pt Warm) -Tenderness on Palpation (Vangie-wound No No Skin Appearance) -Ulcer Cleansing Rinsed/ Rinsed/ Irrigated with Irrigated with Saline Saline -Foul Odor after Cleansing No No -Anesthetic Used 4% Lidocaine 5% Lidocaine Solution Gel #4 l great toe tip -Combined with other wound No -Current Size (cm) - Length 0.5 0.5 -Current Size (cm) - Width 0.6 0.1 -Current Size (cm) - Depth 0.1 0.1 -Total Square Cm 0.30 0.05 -Photo Taken Yes -Epithelialization Small 1-33% -Tunneling No -Undermining/Tunneling No -Circular Undermining No -Classification - 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) -Exudate Amt Small Small -Exudate Type Serosanguineous Serosanguineous -Wound Margin Flat & Intact Distinct, Outline Attached -Granulation Amt Small (1-33%) Small (1-33%) -Granulation Quality Red Red -Slough/Fibrin Yes -Necrosis Amt Small (1-33%) Small (1-33%) -Necrotic Tissue Type Adherent Slough Adherent Slough -Structure Exposed N/A -Texture (Vangie-wound Skin Appearance) Assessed Assessed,Callus ,Scarring -Moisture (Vangie-wound Skin Appearance) Assessed, No Abnormality, Maceration Assessed -Color (Vangie-wound Skin Appearance) Assessed No Abnormality, Assessed -Temperature (Vangie-wound Skin No Abnormality No Abnormality Appearance) (Pt Warm) (Pt Warm) -Tenderness on Palpation (Vangie-wound No No Skin Appearance) -Ulcer Cleansing Rinsed/ Rinsed/ Irrigated with Irrigated with Saline Saline -Foul Odor after Cleansing No No -Anesthetic Used 4% Lidocaine 5% Lidocaine Solution Gel #2 Left Gr Toe -Combined with other wound No -Current Size (cm) - Length 0.6 0.5 -Current Size (cm) - Width 1.1 0.5 -Current Size (cm) - Depth 0.1 0.1 -Total Square Cm 0.66 0.25 -Photo Taken Yes -Epithelialization None Present -Tunneling No -Undermining/Tunneling No -Circular Undermining No -Exudate Amt Small Small -Exudate Type Serosanguineous Serosanguineous -Wound Margin Thickened Distinct, Outline Attached -Granulation Amt Small (1-33%) Small (1-33%) -Granulation Quality Red Red -Slough/Fibrin Yes -Necrosis Amt Small (1-33%) Small (1-33%) -Necrotic Tissue Type Adherent Slough Adherent Slough -Structure Exposed N/A -Texture (Vangie-wound Skin Appearance) Assessed,Callus Assessed,Callus ,Scarring -Moisture (Vangie-wound Skin Appearance) Assessed,Dry/ No Abnormality, Scaly Assessed -Color (Vangie-wound Skin Appearance) Assessed No Abnormality, Assessed -Temperature (Vangie-wound Skin No Abnormality No Abnormality Appearance) (Pt Warm) (Pt Warm) -Tenderness on Palpation (Vangie-wound No No Skin Appearance) -Ulcer Cleansing Rinsed/ Rinsed/ Irrigated with Irrigated with Saline Saline -Foul Odor after Cleansing No No -Anesthetic Used 4% Lidocaine 5% Lidocaine Solution Gel #3 left anterior leg -Combined with other wound No -Current Size (cm) - Length 1.5 1.4 -Current Size (cm) - Width 1.0 0.5 -Current Size (cm) - Depth 0.1 0.1 -Total Square Cm 1.50 0.70 -Photo Taken Yes -Epithelialization Small 1-33% -Tunneling No -Undermining/Tunneling No -Circular Undermining No -Exudate Amt Small Small -Exudate Type Serosanguineous Serosanguineous -Wound Margin Flat & Intact Distinct, Outline Attached -Granulation Amt Medium (34-66%) Medium (34-66%) -Granulation Quality Red Red -Slough/Fibrin Yes -Necrosis Amt Small (1-33%) Small (1-33%) -Necrotic Tissue Type Adherent Slough Adherent Slough -Structure Exposed N/A -Texture (Vangie-wound Skin Appearance) Assessed, Assessed, Localized Edema Scarring -Moisture (Vangie-wound Skin Appearance) Assessed,Dry/ No Abnormality, Scaly Assessed -Color (Vangie-wound Skin Appearance) Assessed No Abnormality, Assessed -Temperature (Vangie-wound Skin No Abnormality No Abnormality Appearance) (Pt Warm) (Pt Warm) -Tenderness on Palpation (Vangie-wound No No Skin Appearance) -Ulcer Cleansing Rinsed/ Rinsed/ Irrigated with Irrigated with Saline Saline -Foul Odor after Cleansing No No -Anesthetic Used 4% Lidocaine 5% Lidocaine Solution Gel Lower Limb Edema Present No WC - Nurse 2 - General Ulcer CM Notes Start: 09/25/21 12:46 Freq: Status: Active Protocol: Activity Type Activity Date Activity User E-Sign Co-Sign Detail Recorded Client Recorded Date Recorded By Document 09/25/21 11:21 PL [id number] 09/26/21 07:27 PL Document 10/02/21 13:28 PL [id number] 10/02/21 13:32 PL 09/25/21 10/02/21 11:21 13:28 Wound Center Nurse 2 #6 right lower leg -Time 10:57 10:44 -Correct Patient Yes Yes -Correct Side, Site, Position Yes Yes -Correct Procedure Yes Yes -Procedure Performed Yes Yes -Type of Procedure Debridement Debridement -Clinical Debridement Subcutaneous Subcutaneous -Tissue Removed Subcutaneous Subcutaneous -Post Debridement (cm) - Length 0.8 0.1 -Post Debridement (cm) - Width 0.7 0.1 -Post Debridement (cm) - Depth 0.1 0.1 -Total Square (Post) (cm) 0.56 0.01 -Area of Debridement (cm) - Length 0.8 0.1 -Area of Debridement (cm) - Width 0.7 0.1 -Total Square (Area) (cm) 0.56 0.01 -Tunneling No No -Undermining/Tunneling No No -Circular Undermining No No -Wound/Ulcer Outcome Not Healed Not Healed -Ulcer Cleansing Rinsed/ Rinsed/ Irrigated with Irrigated with Saline Saline -Foul Odor after Cleansing No No -Bioengineered Tissue No No -Bleeding Controlled with Pressure Pressure -Treatment Response Procedure Procedure Tolerated Well Tolerated Well -Debridement - Subq, 1st 20sq cm No No #5 r lateral ankle -Time 10:57 10:44 -Correct Patient Yes Yes -Correct Side, Site, Position Yes Yes -Correct Procedure Yes Yes -Procedure Performed Yes Yes -Type of Procedure Debridement Debridement -Clinical Debridement Subcutaneous Subcutaneous -Tissue Removed Subcutaneous Subcutaneous -Post Debridement (cm) - Length 0.3 0.2 -Post Debridement (cm) - Width 0.4 2 -Post Debridement (cm) - Depth 0.1 0.1 -Total Square (Post) (cm) 0.12 0.4 -Area of Debridement (cm) - Length 0.3 0.2 -Area of Debridement (cm) - Width 0.4 2 -Total Square (Area) (cm) 0.12 0.4 -Tunneling No No -Undermining/Tunneling No No -Circular Undermining No No -Wound/Ulcer Outcome Not Healed Not Healed -Ulcer Cleansing Rinsed/ Rinsed/ Irrigated with Irrigated with Saline Saline -Foul Odor after Cleansing No No -Bioengineered Tissue No No -Bleeding Controlled with Pressure Pressure -Treatment Response Procedure Procedure Tolerated Well Tolerated Well -Debridement - Subq, 1st 20sq cm No No #4 l great toe tip -Time 10:57 10:44 -Correct Patient Yes Yes -Correct Side, Site, Position Yes Yes -Correct Procedure Yes Yes -Procedure Performed Yes Yes -Type of Procedure Debridement Debridement -Clinical Debridement Subcutaneous Subcutaneous -Tissue Removed Subcutaneous Subcutaneous -Post Debridement (cm) - Length 0.5 0.5 -Post Debridement (cm) - Width 0.6 0.1 -Post Debridement (cm) - Depth 0.1 0.1 -Total Square (Post) (cm) 0.30 0.05 -Area of Debridement (cm) - Length 0.5 0.5 -Area of Debridement (cm) - Width 0.6 0.1 -Total Square (Area) (cm) 0.30 0.05 -Tunneling No No -Undermining/Tunneling No No -Circular Undermining No No -Wound/Ulcer Outcome Not Healed Not Healed -Ulcer Cleansing Rinsed/ Rinsed/ Irrigated with Irrigated with Saline Saline -Foul Odor after Cleansing No No -Bioengineered Tissue No No -Bleeding Controlled with Pressure Pressure -Treatment Response Procedure Procedure Tolerated Well Tolerated Well -Debridement - Subq, 1st 20sq cm No No #2 Left Gr Toe -Time 10:57 10:44 -Correct Patient Yes Yes -Correct Side, Site, Position Yes Yes -Correct Procedure Yes Yes -Procedure Performed Yes Yes -Type of Procedure Debridement Debridement -Clinical Debridement Subcutaneous Subcutaneous -Tissue Removed Subcutaneous Subcutaneous -Post Debridement (cm) - Length 0.6 0.5 -Post Debridement (cm) - Width 1.1 0.5 -Post Debridement (cm) - Depth 0.1 0.1 -Total Square (Post) (cm) 0.66 0.25 -Area of Debridement (cm) - Length 0.6 0.5 -Area of Debridement (cm) - Width 1.1 0.5 -Total Square (Area) (cm) 0.66 0.25 -Tunneling No No -Undermining/Tunneling No No -Circular Undermining No No -Wound/Ulcer Outcome Not Healed Not Healed -Ulcer Cleansing Rinsed/ Rinsed/ Irrigated with Irrigated with Saline Saline -Foul Odor after Cleansing No No -Bioengineered Tissue No No -Bleeding Controlled with Pressure Pressure -Treatment Response Procedure Procedure Tolerated Well Tolerated Well -Debridement - Subq, 1st 20sq cm No No #3 left anterior leg -Time 10:57 10:44 -Correct Patient Yes Yes -Correct Side, Site, Position Yes Yes -Correct Procedure Yes Yes -Procedure Performed Yes Yes -Type of Procedure Debridement Debridement -Clinical Debridement Subcutaneous Subcutaneous -Tissue Removed Subcutaneous Subcutaneous -Post Debridement (cm) - Length 1.5 1.4 -Post Debridement (cm) - Width 1.0 0.5 -Post Debridement (cm) - Depth 0.1 0.1 -Total Square (Post) (cm) 1.50 0.70 -Area of Debridement (cm) - Length 1.5 1.4 -Area of Debridement (cm) - Width 1.0 0.5 -Total Square (Area) (cm) 1.50 0.70 -Tunneling No No -Undermining/Tunneling No No -Circular Undermining No No -Wound/Ulcer Outcome Not Healed Not Healed -Ulcer Cleansing Rinsed/ Rinsed/ Irrigated with Irrigated with Saline Saline -Foul Odor after Cleansing No No -Bioengineered Tissue No No -Bleeding Controlled with Pressure Pressure -Treatment Response Procedure Procedure Tolerated Well Tolerated Well -Debridement - Subq, 1st 20sq cm Yes Yes Pain Scale: 0-10 Numeric Is Patient Pain Free? Yes Yes WC - Nurse 3 - General Ulcer D/C NN Start: 09/25/21 12:46 Freq: Status: Active Protocol: Activity Type Activity Date Activity User E-Sign Co-Sign Detail Recorded Client Recorded Date Recorded By Document 09/25/21 15:31 AK [id number] 09/25/21 15:35 AK 09/25/21 15:31 Wound Care Nurse 3 #6 right lower leg -Ulcer Cleansing Rinsed/ Irrigated with Saline -Foul Odor after Cleansing No -Negative Pressure Wound Therapy N/A -Primary Dressing Applied Promogran Chuyita Matter -Primary Dressing Covered/Secured with Dry Gauze, Secured with Tape -Promogran Chuyita Matter 1 #5 r lateral ankle -Ulcer Cleansing Rinsed/ Irrigated with Saline -Primary Dressing Applied Promogran Chuyita Matter -Primary Dressing Covered/Secured with Dry Gauze, Secured with Tape -Promogran Chuyita Matter 0 #4 l great toe tip -Ulcer Cleansing Rinsed/ Irrigated with Saline -Foul Odor after Cleansing No -Negative Pressure Wound Therapy N/A -Primary Dressing Applied Promogran Chuyita Matter -Primary Dressing Covered/Secured with Dry Gauze, Secured with Tape -Promogran Chuyita Matter 0 #2 Left Gr Toe -Ulcer Cleansing Rinsed/ Irrigated with Saline -Foul Odor after Cleansing No -Negative Pressure Wound Therapy N/A -Primary Dressing Applied Promogran Chuyita Matter -Primary Dressing Covered/Secured with Dry Gauze, Secured with Tape -Promogran Chuyita Matter 0 #3 left anterior leg -Ulcer Cleansing Rinsed/ Irrigated with Saline -Foul Odor after Cleansing No -Negative Pressure Wound Therapy N/A -Primary Dressing Applied Promogran Chuyita Matter -Primary Dressing Covered/Secured with Dry Gauze, Secured with Tape -Promogran Chuyita Matter 0 Left -Lotion applied to leg before No compression wrap -Other own Pain Scale: 0-10 Numeric Is Patient Pain Free? Yes WC - Visit Discharge Discharge Condition Stable Transportation Private Auto Accompanied by caregiver Medication Reconcilliation completed & Yes provided to patient/care provider Clinical Summary of Care Provided Yes Additional Wound Wound debrided: Left plantar hallux Laterality: Left Wound Grade/Stage: Russell stage I Type of Debridement: Excisional debridement Anesthesia Used: 5% Lidocaine Gel Depth: in the subcutaneous layer Percentage of wound debrided: 100 Instrument Used: #15 blade Tissue Removed: Fibrous, devitalized subcutaneous, biofilm, slough Severity: Fat Layer Exposed Amount of bleeding with debridement: Mild Bleeding Controlled with: Pressure Patient tolerated procedure: Patient tolerated procedure well Additional Wound Wound debrided: Right anterior lower extremity Laterality: Right Wound Grade/Stage: Russell stage I Type of Debridement: Excisional debridement Anesthesia Used: 5% Lidocaine Gel Depth: in the subcutaneous layer Percentage of wound debrided: 100 Instrument Used: 3mm curette Tissue Removed: Fibrous, devitalized subcutaneous, biofilm, slough Severity: Fat Layer Exposed Amount of bleeding with debridement: Mild Bleeding Controlled with: Pressure Patient tolerated procedure: Patient tolerated procedure well Additional Wound Wound debrided: Right lateral ankle Laterality: Right Wound Grade/Stage: Russell stage I Type of Debridement: Excisional debridement Anesthesia Used: 5% Lidocaine Gel Depth: in the subcutaneous layer Percentage of wound debrided: 100 Instrument Used: 3mm curette Tissue Removed: Fibrous, devitalized subcutaneous, biofilm, slough Severity: Fat Layer Exposed Amount of bleeding with debridement: Mild Bleeding Controlled with: Pressure Patient tolerated procedure: Patient tolerated procedure well Assessment/Plan Assessment/Plan (1) Non-pressure 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: CODE(S): L97.522 - Non-pressure 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 (2) Non-pressure chronic ulcer of left calf with fat layer exposed: CODE(S): L97.222 - Non-pressure chronic ulcer of left calf with fat layer exposed (3) Varicose veins of left lower extremity with ulcer of calf: CODE(S): I83.022 - Varicose veins of left lower extremity with ulcer of calf (4) Chronic venous insufficiency: (5) Leg edema, left: CODE(S): R60.0 - Localized edema (6) COPD (chronic obstructive pulmonary disease): CODE(S): J44.9 - Chronic obstructive pulmonary disease, unspecified (7) Spinal stenosis: CODE(S): M48.00 - Spinal stenosis, site unspecified (8) Back pain: CODE(S): M54.9 - Dorsalgia, unspecified (9) Edema leg: CODE(S): R60.0 - Localized edema (10) Non-pressure chronic ulcer of right calf with fat layer exposed: CODE(S): L97.212 - Non-pressure chronic ulcer of right calf with fat layer exposed (11) Non-pressure chronic ulcer of right ankle with fat layer exposed: CODE(S): L97.312 - Non-pressure chronic ulcer of right ankle with fat layer exposed PLAN: This is an 86-year-old female with history of COPD and spinal stenosis who presents to the wound care clinic for follow-up of left lower extremity anterior ulceration secondary to chronic venous insufficiency. She also has a left medial hallux IPJ ulceration secondary to decreased range of motion at the first metatarsophalangeal joint due to end-stage arthritis. She had venous studies performed confirming reflux of the left great saphenous vein with no deep venous thrombosis bilaterally. Wounds present to right anterior lateral leg ulceration secondary to scratching herself and right ankle ulceration posterior to the lateral malleolus secondary to venous insufficiency. 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 Ulceration site left lower extremity, Russell stage I, was debrided sharply with a 3 mm curette. Ulceration site is continuing to show progression and decreasing in size. Debridement performed to remove fibrous, devitalized tissue, biofilm, and slough. Left lower extremity anterior ulceration site demonstrates no localized signs of infection. I debrided the left hallux medial IPJ hyperkeratotic tissue with a #15 blade removing all nonviable tissue, devitalized subcutaneous, biofilm, and slough of this Russell stage I ulceration. Left hallux demonstrates no erythema, no purulence, no proximal red streaking or other localized signs of infection. Left hallux ulceration site is showing progression and decreasing in size overall with less callus buildup. This wound is nearing closure. Patient continues to offload the first metatarsophalangeal joint and hallux with an offloading pad to the plantar first metatarsal head. Instructed patient and information technology instructor to continue to offload the site as this is zepeda to decreasing pressure and healing this ulceration on the plantar hallux. I discussed applying a surgical shoe to the left foot to prevent the ends of her toes from hitting in her shoe. Surgical shoe dispensed to her today. Patient has developed wounds to the right anterior lateral lower extremity and right ankle posterior to the lateral malleolus. These ulceration sites were sharply debrided with a 3 mm curette and #15 blade respectively. Right lateral ankle wound continues to show progression and is nearing closure. Right anterior lateral leg wound is showing signs of progression. Ulcerations demonstrate no localized signs of infection. Ulceration sites dressed with Chuyita dry sterile dressing and Tubigrip applied to the bilateral lower extremities. Hallux ulceration site was dressed with Chuyita, 2 x 2 gauze, cotton padding, Coban and an offloading pad to the first metatarsophalangeal joint. I discussed continued offloading of the hallux ulceration site with felt pads, surgical shoe, or foam inserts. Surgery Aid states she will continue to apply the felt offloading pads to the first metatarsal head plantarly. Patient went to the office last to pick out a set of shoes. We will await arrival of protective shoes with inserts. Patient to continue to elevate lower extremities in addition to wearing her Tubigrip compression stockings bilateral to aid in edema control. I discussed with her that she is to continue to elevate her feet at times of rest and dorsiflex and plantarflex her foot a few times to aid in venous return by utilization of her calf muscle. Patient voices understanding of this. I reviewed and discussed his case today. Debridement was performed today as noted in the clinical panel to all of the ulcer sites. The following work up and care recommendations were made: Dressing: Chuyita anterior left leg and right leg; Chuyita right ankle; Chuyita left hallux, 2 x 2 gauze, cotton, Coban and an offloading pad to the first metatarsophalangeal joint Wash: Soap and water Tissue growth optimization: Chuyita Offload: Offloading dressing of the first metatarsophalangeal joint and left hallux Vascular: Vascular status intact with palpable pedal pulses Edema: Elevation of the left lower extremity and right lower extremity control to control edema. Patient instructed to wear Tubigrip stockings Infection: No localized signs of infection Pain: May take [id number] Tylenol, safe oral anti-inflammatory use discussed. Host factors: Chronic venous insufficiency I answered all the patient's questions. To return to the wound healing center in 1 week or call sooner if the patient has any questions or concerns. Note: [employer] speech recognition metal precision machine assembler software was used to create portions of this document. Sound-alike and misspelled words, as well as other metal precision machine assembler errors may be contained in the documentation.
[2021-10-09 10:53] VITALS: BP 128/74; PULSE 74; TEMP 36.3; BMI 25.7
--- NOTE | 2021-10-09 11:23 | PCM.WC.PN ---
History of Present Illness Date of Service: 10/09/21 Chief Complaint: Left leg swelling and left anterior leg ulceration, left hallux plantar wound History of Wound: Patient has been treated with Chuyita to both ulceration sites and an offloading pad to the left hallux. Subjective Subjective This is an 86-year-old female who presents today to the wound care center for follow-up of left lower extremity ulceration and left hallux ulceration overlying the interphalangeal joint. She denies any nausea, vomiting, chills, fever, shortness of breath, or other constitutional symptoms. Her health aide social science research assistant is present with her today and continues to help her change her dressings daily and applies an offloading pad to the first metatarsal head to offload the hallux distally. She also has wounds on her right lower extremity secondary to scratching herself and a wound right lateral malleolus. She admits to a new wound that occurred after she showered to her right medial leg. She denies any complaints today. Objective Data Objective Data Vital Signs: Vital Signs Temp Pulse Resp BP 97.4 F L 74 18 128/74 H 10/09/21 10:53 10/09/21 10:53 09/25/21 13:31 10/09/21 10:53 Weight: 70.307 kg Body Mass Index (BMI) 25.7 Physical Exam Const alert, oriented x3 and no apparent distress General Appearance: cooperative and comfortable Eyes General Eye: normal appearance of both eyes Neck General: normal visual inspection Lymph Lymphatic: no lymphadenopathy noted and no lymphedema noted Resp normal respiratory effort Cardio regular rate and regular rhythm Extremity Left Lower Extremity: foot and digits Positive for ROM (Decreased hallux range of motion 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 Left lower extremity ulceration anterior with localized rubor and granular tissue in the wound bed, no malodor, no purulence or other localized signs of infection, adjacent skin is atrophic and thin. Left hallux IPJ some hyperkeratotic tissue noted with no localized erythema, purulent drainage, malodor, red streaking or other localized signs of infection. Right lower extremity ulceration anterior lateral secondary to scratching herself has scabbed over. Site demonstrates no localized erythema, malodor, purulent drainage, or other localized signs of infection. Right distal lateral wound just posterior to the lateral malleolus secondary to venous insufficiency demonstrates granular base with mixed fibrotic tissue and no localized signs of infection. Right medial leg proximal to the medial malleolus secondary to venous insufficiency demonstrates granular base with no localized signs of infection. General Skin Exam: venous stasis Neuro oriented x3 and moves all extremities Motor Exam: strength 5/5 throughout Debridement Note Debridement Note Wound debrided: Left anterior leg Laterality: Left Wound Grade/Stage: Russell stage I Type of Debridement: Excisional debridement Anesthesia Used: 5% Lidocaine Gel Depth: in the subcutaneous layer Percentage of wound debrided: 100 Instrument Used: - (2 mm curette) Tissue Removed: Fibrous, devitalized subcutaneous, biofilm, slough Severity: Fat Layer Exposed Amount of bleeding with debridement: Mild Bleeding Controlled with: Pressure Patient tolerated procedure: Patient tolerated procedure well Post-Debridement Measurements and Additional Note: Post-Debridement Measurements/Treatment - Nurse 1 - General Ulcer Assessment Start: 09/25/21 12:46 Freq: Status: Active Protocol: [email or web address].[email or web address] Activity Type Activity Date Activity User E-Sign Co-Sign Detail Recorded Client Recorded Date Recorded By Document 09/25/21 13:31 JAVIER [id number] 09/25/21 13:36 Document 10/02/21 10:07 KR [id number] 10/02/21 10:21 KR Document 10/09/21 10:53 AK [id number] 10/09/21 10:58 AK 09/25/21 10/02/21 10/09/21 13:31 10:07 10:53 - Today's Visit Information Type of service Follow-up Visit Follow-up Visit Follow-up Visit (Physician/AUTO BODY REPAIR TECHNICIAN (Physician/AUTO BODY REPAIR TECHNICIAN (Physician/AUTO BODY REPAIR TECHNICIAN ) ) ) Arrival Mode Ambulatory Ambulatory Ambulatory Accompanied by caregiver Patient Identification Verified (Name & Yes Yes ) Patient Requires Transmission-Based No No Precautions Height and Weight Body Mass Index (BMI) 25.7 25.7 25.7 BMI Classification Overweight Overweight Overweight Vital Signs Temperature (97.8 F-99.1 F) 96.1 F L 97.0 F L 97.4 F L Temperature Source Temporal Temporal Temporal Pulse Rate (60-100) 85 81 74 Pulse Location Monitor Monitor Monitor Respiratory Rate (12-18) 18 Respiratory rate source Observation Blood Pressure (90/60-120/80) 161/81 H 132/74 H 128/74 H Blood Pressure Mean (mm Hg) 107 93 92 Source Monitor Monitor Monitor Position Semi-Fowlers Sitting Sitting Blood Pressure Location Right Arm Left Arm Right Arm History Since Last Visit- (Skip if this is Patient's initial visit) Have you changed medications since your No No No last visit? Any new allergies or adverse reactions No No No Had a fall/change in ADL's that may No No No increase risk of falls Signs or symptoms of abuse and/or No No No neglect since last visit Have you been in the hospital since your No No No last visit? Has dressing in place as prescribed Yes Yes Yes Has compression in place as prescribed No N/A N/A Has offloadiing in place as prescribed N/A N/A N/A Experienced any changes in pain level or No No No management Left Footwear Regular Shoe Regular Shoe Regular Shoe Right Footwear Regular Shoe Regular Shoe Regular Shoe Pain Scale: 0-10 Numeric Is Patient Pain Free? Yes Yes No WC - Nurse 1 - General Ulcer Measurement Start: 09/25/21 12:46 Freq: Status: Active Protocol: Activity Type Activity Date Activity User E-Sign Co-Sign Detail Recorded Client Recorded Date Recorded By Document 09/25/21 13:31 [id number] 09/25/21 13:36 Document 10/02/21 10:07 KR [id number] 10/02/21 10:21 KR Document 10/09/21 10:53 AK [id number] 10/09/21 10:58 AK 09/25/21 10/02/21 10/09/21 13:31 10:07 10:53 Wound Center Nurse 1 #6 right lower leg -Combined with other wound No -Current Size (cm) - Length 0.8 0.1 0.1 -Current Size (cm) - Width 0.7 0.1 0.1 -Current Size (cm) - Depth 0.1 0.1 0.1 -Total Square Cm 0.56 0.01 0.01 -Photo Taken Yes -Epithelialization Small 1-33% -Tunneling No -Undermining/Tunneling No -Circular Undermining No -Classification - 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) -Exudate Amt Small -Exudate Type Serosanguineous -Wound Margin Flat & Intact Distinct, Outline Attached -Granulation Amt Small (1-33%) -Granulation Quality [place] -Slough/Fibrin Yes -Necrosis Amt Small (1-33%) -Necrotic Tissue Type Adherent Slough -Structure Exposed N/A -Texture (Vangie-wound Skin Appearance) Assessed Assessed, Scarring -Moisture (Vangie-wound Skin Appearance) Assessed,Dry/ Assessed,Dry/ Scaly Scaly -Color (Vangie-wound Skin Appearance) Assessed No Abnormality, Assessed -Temperature (Vangie-wound Skin No Abnormality No Abnormality No Abnormality Appearance) (Pt Warm) (Pt Warm) (Pt Warm) -Tenderness on Palpation (Vangie-wound No No No Skin Appearance) -Ulcer Cleansing Rinsed/ Rinsed/ Rinsed/ Irrigated with Irrigated with Irrigated with Saline Saline Saline -Foul Odor after Cleansing No No No -Anesthetic Used 4% Lidocaine 5% Lidocaine 4% Lidocaine Solution Gel Solution #5 r lateral ankle -Combined with other wound No -Current Size (cm) - Length 0.3 0.2 0.1 -Current Size (cm) - Width 0.4 2 0.1 -Current Size (cm) - Depth 0.1 0.1 0.1 -Total Square Cm 0.12 0.4 0.01 -Photo Taken No -Epithelialization Small 1-33% -Tunneling No -Undermining/Tunneling No -Circular Undermining No -Classification - 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) -Exudate Amt Small Small -Exudate Type Serosanguineous Serosanguineous -Wound Margin Flat & Intact Distinct, Outline Attached -Granulation Amt Medium (34-66%) Small (1-33%) -Granulation Quality [place] -Slough/Fibrin Yes -Necrosis Amt Small (1-33%) Small (1-33%) -Necrotic Tissue Type Adherent Slough Adherent Slough -Structure Exposed N/A -Texture (Vangie-wound Skin Appearance) Assessed Assessed, Scarring -Moisture (Vangie-wound Skin Appearance) Assessed,Dry/ Assessed,Dry/ Scaly Scaly -Color (Vangie-wound Skin Appearance) Assessed No Abnormality, Assessed -Temperature (Vangie-wound Skin No Abnormality No Abnormality Appearance) (Pt Warm) (Pt Warm) -Tenderness on Palpation (Vangie-wound No No Skin Appearance) -Ulcer Cleansing Rinsed/ Rinsed/ Irrigated with Irrigated with Saline Saline -Foul Odor after Cleansing No No -Anesthetic Used 4% Lidocaine 5% Lidocaine Solution Gel #4 l great toe tip -Combined with other wound No -Current Size (cm) - Length 0.5 0.5 -Current Size (cm) - Width 0.6 0.1 -Current Size (cm) - Depth 0.1 0.1 -Total Square Cm 0.30 0.05 -Photo Taken Yes -Epithelialization Small 1-33% -Tunneling No -Undermining/Tunneling No -Circular Undermining No -Classification - 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) -Exudate Amt Small Small -Exudate Type Serosanguineous Serosanguineous -Wound Margin Flat & Intact Distinct, Outline Attached -Granulation Amt Small (1-33%) Small (1-33%) -Granulation Quality Red [place] -Slough/Fibrin Yes -Necrosis Amt Small (1-33%) Small (1-33%) -Necrotic Tissue Type Adherent Slough Adherent Slough -Structure Exposed N/A -Texture (Vangie-wound Skin Appearance) Assessed Assessed,Callus ,Scarring -Moisture (Vangie-wound Skin Appearance) Assessed, No Abnormality, Maceration Assessed -Color (Vangie-wound Skin Appearance) Assessed No Abnormality, Assessed -Temperature (Vangie-wound Skin No Abnormality No Abnormality Appearance) (Pt Warm) (Pt Warm) -Tenderness on Palpation (Vangie-wound No No Skin Appearance) -Ulcer Cleansing Rinsed/ Rinsed/ Irrigated with Irrigated with Saline Saline -Foul Odor after Cleansing No No -Anesthetic Used 4% Lidocaine 5% Lidocaine Solution Gel #2 Left Gr Toe -Combined with other wound No -Current Size (cm) - Length 0.6 0.5 0.1 -Current Size (cm) - Width 1.1 0.5 0.1 -Current Size (cm) - Depth 0.1 0.1 0.1 -Total Square Cm 0.66 0.25 0.01 -Photo Taken Yes -Epithelialization None Present -Tunneling No -Undermining/Tunneling No -Circular Undermining No -Exudate Amt Small Small None Present -Exudate Type Serosanguineous Serosanguineous -Wound Margin Thickened Distinct, Distinct, Outline Outline Attached Attached -Granulation Amt Small (1-33%) Small (1-33%) -Granulation Quality [place] -Slough/Fibrin Yes Yes -Necrosis Amt Small (1-33%) Small (1-33%) Large (67-100%) -Necrotic Tissue Type Adherent Slough Adherent Slough Eschar -Structure Exposed N/A -Texture (Vangie-wound Skin Appearance) Assessed,Callus Assessed,Callus Assessed, ,Scarring Localized Edema -Moisture (Vangie-wound Skin Appearance) Assessed,Dry/ No Abnormality, Assessed,Dry/ Scaly Assessed Scaly -Color (Vangie-wound Skin Appearance) Assessed No Abnormality, No Abnormality, Assessed Assessed -Temperature (Vangie-wound Skin No Abnormality No Abnormality No Abnormality Appearance) (Pt Warm) (Pt Warm) (Pt Warm) -Tenderness on Palpation (Vangie-wound No No No Skin Appearance) -Ulcer Cleansing Rinsed/ Rinsed/ Rinsed/ Irrigated with Irrigated with Irrigated with Saline Saline Saline -Foul Odor after Cleansing No No No -Anesthetic Used 4% Lidocaine 5% Lidocaine 4% Lidocaine Solution Gel Solution #3 left anterior leg -Combined with other wound No -Current Size (cm) - Length 1.5 1.4 0.1 -Current Size (cm) - Width 1.0 0.5 0.6 -Current Size (cm) - Depth 0.1 0.1 0.1 -Total Square Cm 1.50 0.70 0.06 -Photo Taken Yes -Epithelialization Small 1-33% -Tunneling No -Undermining/Tunneling No -Circular Undermining No -Exudate Amt Small Small Small -Exudate Type Serosanguineous Serosanguineous Serosanguineous -Wound Margin Flat & Intact Distinct, Distinct, Outline Outline Attached Attached -Granulation Amt Medium (34-66%) Medium (34-66%) Small (1-33%) -Granulation Quality [place] -Slough/Fibrin Yes -Necrosis Amt Small (1-33%) Small (1-33%) Small (1-33%) -Necrotic Tissue Type Adherent Slough Adherent Slough Adherent Slough -Structure Exposed N/A -Texture (Vangie-wound Skin Appearance) Assessed, Assessed, Assessed, Localized Edema Scarring Scarring -Moisture (Vangie-wound Skin Appearance) Assessed,Dry/ No Abnormality, Assessed,Dry/ Scaly Assessed Scaly -Color (Vangie-wound Skin Appearance) Assessed No Abnormality, No Abnormality, Assessed Assessed -Temperature (Vangie-wound Skin No Abnormality No Abnormality No Abnormality Appearance) (Pt Warm) (Pt Warm) (Pt Warm) -Tenderness on Palpation (Vangie-wound No No No Skin Appearance) -Ulcer Cleansing Rinsed/ Rinsed/ Rinsed/ Irrigated with Irrigated with Irrigated with Saline Saline Saline -Foul Odor after Cleansing No No No -Anesthetic Used 4% Lidocaine 5% Lidocaine 4% Lidocaine Solution Gel Solution Lower Limb Edema Present No WC - Nurse 2 - General Ulcer CM Notes Start: 09/25/21 12:46 Freq: Status: Active Protocol: Activity Type Activity Date Activity User E-Sign Co-Sign Detail Recorded Client Recorded Date Recorded By Document 09/25/21 11:21 PL [id number] 09/26/21 07:27 PL Document 10/02/21 13:28 PL [id number] 10/02/21 13:32 PL 09/25/21 10/02/21 11:21 13:28 Wound Center Nurse 2 #6 right lower leg -Time 10:57 10:44 -Correct Patient Yes Yes -Correct Side, Site, Position Yes Yes -Correct Procedure Yes Yes -Procedure Performed Yes Yes -Type of Procedure Debridement Debridement -Clinical Debridement Subcutaneous Subcutaneous -Tissue Removed Subcutaneous Subcutaneous -Post Debridement (cm) - Length 0.8 0.1 -Post Debridement (cm) - Width 0.7 0.1 -Post Debridement (cm) - Depth 0.1 0.1 -Total Square (Post) (cm) 0.56 0.01 -Area of Debridement (cm) - Length 0.8 0.1 -Area of Debridement (cm) - Width 0.7 0.1 -Total Square (Area) (cm) 0.56 0.01 -Tunneling No No -Undermining/Tunneling No No -Circular Undermining No No -Wound/Ulcer Outcome Not Healed Not Healed -Ulcer Cleansing Rinsed/ Rinsed/ Irrigated with Irrigated with Saline Saline -Foul Odor after Cleansing No No -Bioengineered Tissue No No -Bleeding Controlled with Pressure Pressure -Treatment Response Procedure Procedure Tolerated Well Tolerated Well -Debridement - Subq, 1st 20sq cm No No #5 r lateral ankle -Time 10:57 10:44 -Correct Patient Yes Yes -Correct Side, Site, Position Yes Yes -Correct Procedure Yes Yes -Procedure Performed Yes Yes -Type of Procedure Debridement Debridement -Clinical Debridement Subcutaneous Subcutaneous -Tissue Removed Subcutaneous Subcutaneous -Post Debridement (cm) - Length 0.3 0.2 -Post Debridement (cm) - Width 0.4 2 -Post Debridement (cm) - Depth 0.1 0.1 -Total Square (Post) (cm) 0.12 0.4 -Area of Debridement (cm) - Length 0.3 0.2 -Area of Debridement (cm) - Width 0.4 2 -Total Square (Area) (cm) 0.12 0.4 -Tunneling No No -Undermining/Tunneling No No -Circular Undermining No No -Wound/Ulcer Outcome Not Healed Not Healed -Ulcer Cleansing Rinsed/ Rinsed/ Irrigated with Irrigated with Saline Saline -Foul Odor after Cleansing No No -Bioengineered Tissue No No -Bleeding Controlled with Pressure Pressure -Treatment Response Procedure Procedure Tolerated Well Tolerated Well -Debridement - Subq, 1st 20sq cm No No #4 l great toe tip -Time 10:57 10:44 -Correct Patient Yes Yes -Correct Side, Site, Position Yes Yes -Correct Procedure Yes Yes -Procedure Performed Yes Yes -Type of Procedure Debridement Debridement -Clinical Debridement Subcutaneous Subcutaneous -Tissue Removed Subcutaneous Subcutaneous -Post Debridement (cm) - Length 0.5 0.5 -Post Debridement (cm) - Width 0.6 0.1 -Post Debridement (cm) - Depth 0.1 0.1 -Total Square (Post) (cm) 0.30 0.05 -Area of Debridement (cm) - Length 0.5 0.5 -Area of Debridement (cm) - Width 0.6 0.1 -Total Square (Area) (cm) 0.30 0.05 -Tunneling No No -Undermining/Tunneling No No -Circular Undermining No No -Wound/Ulcer Outcome Not Healed Not Healed -Ulcer Cleansing Rinsed/ Rinsed/ Irrigated with Irrigated with Saline Saline -Foul Odor after Cleansing No No -Bioengineered Tissue No No -Bleeding Controlled with Pressure Pressure -Treatment Response Procedure Procedure Tolerated Well Tolerated Well -Debridement - Subq, 1st 20sq cm No No #2 Left Gr Toe -Time 10:57 10:44 -Correct Patient Yes Yes -Correct Side, Site, Position Yes Yes -Correct Procedure Yes Yes -Procedure Performed Yes Yes -Type of Procedure Debridement Debridement -Clinical Debridement Subcutaneous Subcutaneous -Tissue Removed Subcutaneous Subcutaneous -Post Debridement (cm) - Length 0.6 0.5 -Post Debridement (cm) - Width 1.1 0.5 -Post Debridement (cm) - Depth 0.1 0.1 -Total Square (Post) (cm) 0.66 0.25 -Area of Debridement (cm) - Length 0.6 0.5 -Area of Debridement (cm) - Width 1.1 0.5 -Total Square (Area) (cm) 0.66 0.25 -Tunneling No No -Undermining/Tunneling No No -Circular Undermining No No -Wound/Ulcer Outcome Not Healed Not Healed -Ulcer Cleansing Rinsed/ Rinsed/ Irrigated with Irrigated with Saline Saline -Foul Odor after Cleansing No No -Bioengineered Tissue No No -Bleeding Controlled with Pressure Pressure -Treatment Response Procedure Procedure Tolerated Well Tolerated Well -Debridement - Subq, 1st 20sq cm No No #3 left anterior leg -Time 10:57 10:44 -Correct Patient Yes Yes -Correct Side, Site, Position Yes Yes -Correct Procedure Yes Yes -Procedure Performed Yes Yes -Type of Procedure Debridement Debridement -Clinical Debridement Subcutaneous Subcutaneous -Tissue Removed Subcutaneous Subcutaneous -Post Debridement (cm) - Length 1.5 1.4 -Post Debridement (cm) - Width 1.0 0.5 -Post Debridement (cm) - Depth 0.1 0.1 -Total Square (Post) (cm) 1.50 0.70 -Area of Debridement (cm) - Length 1.5 1.4 -Area of Debridement (cm) - Width 1.0 0.5 -Total Square (Area) (cm) 1.50 0.70 -Tunneling No No -Undermining/Tunneling No No -Circular Undermining No No -Wound/Ulcer Outcome Not Healed Not Healed -Ulcer Cleansing Rinsed/ Rinsed/ Irrigated with Irrigated with Saline Saline -Foul Odor after Cleansing No No -Bioengineered Tissue No No -Bleeding Controlled with Pressure Pressure -Treatment Response Procedure Procedure Tolerated Well Tolerated Well -Debridement - Subq, 1st 20sq cm Yes Yes Pain Scale: 0-10 Numeric Is Patient Pain Free? Yes Yes WC - Nurse 3 - General Ulcer D/C NN Start: 09/25/21 12:46 Freq: Status: Active Protocol: Activity Type Activity Date Activity User E-Sign Co-Sign Detail Recorded Client Recorded Date Recorded By Document 09/25/21 15:31 MAC [id number] 09/25/21 15:35 AK 09/25/21 15:31 Wound Care Nurse 3 #6 right lower leg -Ulcer Cleansing Rinsed/ Irrigated with Saline -Foul Odor after Cleansing No -Negative Pressure Wound Therapy N/A -Primary Dressing Applied Promogran Chuyita Matter -Primary Dressing Covered/Secured with Dry Gauze, Secured with Tape -Promogran Chuyita Matter 1 #5 r lateral ankle -Ulcer Cleansing Rinsed/ Irrigated with Saline -Primary Dressing Applied Promogran [place] Matter -Primary Dressing Covered/Secured with Dry Gauze, Secured with Tape -Promogran [place] Matter 0 #4 l great toe tip -Ulcer Cleansing Rinsed/ Irrigated with Saline -Foul Odor after Cleansing No -Negative Pressure Wound Therapy N/A -Primary Dressing Applied Promogran [place] Matter -Primary Dressing Covered/Secured with Dry Gauze, Secured with Tape -Promogran [place] Matter 0 #2 Left Gr Toe -Ulcer Cleansing Rinsed/ Irrigated with Saline -Foul Odor after Cleansing No -Negative Pressure Wound Therapy N/A -Primary Dressing Applied Promogran [place] Matter -Primary Dressing Covered/Secured with Dry Gauze, Secured with Tape -Promogran [place] Matter 0 #3 left anterior leg -Ulcer Cleansing Rinsed/ Irrigated with Saline -Foul Odor after Cleansing No -Negative Pressure Wound Therapy N/A -Primary Dressing Applied Promogran [place] Matter -Primary Dressing Covered/Secured with Dry Gauze, Secured with Tape -Promogran Ch[place] Matter 0 Left -Lotion applied to leg before No compression wrap -Other own Pain Scale: 0-10 Numeric Is Patient Pain Free? Yes WC - Visit Discharge Discharge Condition Stable Transportation Private Auto Accompanied by caregiver Medication Reconcilliation completed & Yes provided to patient/care provider Clinical Summary of Care Provided Yes Additional Wound Wound debrided: Left plantar hallux Laterality: Left Wound Grade/Stage: Russell stage I Type of Debridement: Excisional debridement Anesthesia Used: 5% Lidocaine Gel Depth: in the subcutaneous layer Percentage of wound debrided: 100 Instrument Used: #15 blade Tissue Removed: Fibrous, devitalized subcutaneous, biofilm, slough Severity: Fat Layer Exposed Amount of bleeding with debridement: Mild Bleeding Controlled with: Pressure Patient tolerated procedure: Patient tolerated procedure well Additional Wound Wound debrided: Right lateral ankle Laterality: Right Wound Grade/Stage: Russell stage I Type of Debridement: Excisional debridement Anesthesia Used: 5% Lidocaine Gel Depth: in the subcutaneous layer Percentage of wound debrided: 100 Instrument Used: - (2 mm curette) Tissue Removed: Fibrous, devitalized subcutaneous, biofilm, slough Severity: Fat Layer Exposed Amount of bleeding with debridement: Mild Bleeding Controlled with: Pressure Patient tolerated procedure: Patient tolerated procedure well Additional Wound Wound debrided: Right medial leg Laterality: Right Wound Grade/Stage: Russell stage I Type of Debridement: Excisional debridement Anesthesia Used: 5% Lidocaine Gel Depth: in the subcutaneous layer Percentage of wound debrided: 100 Instrument Used: - (2 mm curette) Tissue Removed: Fibrous, devitalized subcutaneous, biofilm, slough Severity: Fat Layer Exposed Amount of bleeding with debridement: Mild Bleeding Controlled with: Pressure Patient tolerated procedure: Patient tolerated procedure well Assessment/Plan Assessment/Plan (1) Non-pressure 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: CODE(S): L97.522 - Non-pressure 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 (2) Non-pressure chronic ulcer of left calf with fat layer exposed: CODE(S): L97.222 - Non-pressure chronic ulcer of left calf with fat layer exposed (3) Varicose veins of left lower extremity with ulcer of calf: CODE(S): I83.022 - Varicose veins of left lower extremity with ulcer of calf (4) Chronic venous insufficiency: (5) Leg edema, left: CODE(S): R60.0 - Localized edema (6) COPD (chronic obstructive pulmonary disease): CODE(S): J44.9 - Chronic obstructive pulmonary disease, unspecified (7) Spinal stenosis: CODE(S): M48.00 - Spinal stenosis, site unspecified (8) Back pain: CODE(S): M54.9 - Dorsalgia, unspecified (9) Edema leg: CODE(S): R60.0 - Localized edema (10) Non-pressure chronic ulcer of right calf with fat layer exposed: CODE(S): L97.212 - Non-pressure chronic ulcer of right calf with fat layer exposed (11) Non-pressure chronic ulcer of right ankle with fat layer exposed: CODE(S): L97.312 - Non-pressure chronic ulcer of right ankle with fat layer exposed PLAN: This is an 86-year-old female with history of COPD and spinal stenosis who presents to the wound care clinic for follow-up of left lower extremity anterior ulceration secondary to chronic venous insufficiency. She also has a left medial hallux IPJ ulceration secondary to decreased range of motion at the first metatarsophalangeal joint due to end-stage arthritis. She had venous studies performed confirming reflux of the left great saphenous vein with no deep venous thrombosis bilaterally. Wounds present to right anterior lateral leg ulceration secondary to scratching herself and right ankle ulceration posterior to the lateral malleolus secondary to venous insufficiency. New wound right medial leg proximal to the medial malleolus secondary to chronic venous insufficiency. 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 Ulceration site left lower extremity, Russell stage I, was debrided sharply with a 2 mm curette. Ulceration site is continuing to show progression and decreasing in size. Debridement performed to remove fibrous, devitalized tissue, biofilm, and slough. Left lower extremity anterior ulceration site demonstrates no localized signs of infection. I debrided the left hallux medial IPJ hyperkeratotic tissue with a #15 blade removing all nonviable tissue, devitalized subcutaneous, biofilm, and slough of this Russell stage I ulceration. Left hallux demonstrates no erythema, no purulence, no proximal red streaking or other localized signs of infection. Left hallux ulceration site is showing progression and decreasing in size overall with less callus buildup. This wound is nearing closure. Patient continues to offload the first metatarsophalangeal joint and hallux with an offloading pad to the plantar first metatarsal head. Instructed patient and hammersmith helper to continue to offload the site as this is zepeda to decreasing pressure and healing this ulceration on the plantar hallux. I discussed applying a surgical shoe to the left foot to prevent the ends of her toes from hitting in her shoe. Surgical shoe dispensed to her today to aid in offloading. Patient has developed wounds to the right anterior lateral lower extremity and right ankle posterior to the lateral malleolus and right medial lower extremity proximal to the medial malleolus. These ulceration sites were sharply debrided with a 2 mm curette. Right lateral ankle wound continues to show progression and is nearing closure. Right anterior lateral leg wound is showing signs of progression and currently has a stable scab over the wound site, this was left intact. Ulcerations demonstrate no localized signs of infection. Ulceration sites dressed with Chuyita dry sterile dressing and double Tubigrip applied to the bilateral lower extremities. Hallux ulceration site was dressed with Chuyita, 2 x 2 gauze, cotton padding, Coban and an offloading pad to the first metatarsophalangeal joint. I discussed continued offloading of the hallux ulceration site with felt pads, surgical shoe, or foam inserts. Head Of Partner Development states she will continue to apply the felt offloading pads to the first metatarsal head plantarly. Patient went to the office September 25, 2021 to pick out a set of shoes. We will await arrival of protective shoes with inserts. Patient to continue to elevate lower extremities in addition to wearing her Tubigrip compression stockings bilateral to aid in edema control. I discussed with her that she is to continue to elevate her feet at times of rest and dorsiflex and plantarflex her foot a few times to aid in venous return by utilization of her calf muscle. Patient voices understanding of this. I reviewed and discussed his case today. Debridement was performed today as noted in the clinical panel to all of the ulcer sites. The following work up and care recommendations were made: Dressing: Chuyita anterior left leg and right leg; Chuyita right ankle lateral and medial; Chuyita left hallux, 2 x 2 gauze, cotton, Coban and an offloading pad to the first metatarsophalangeal joint Wash: Soap and water Tissue growth optimization: Chuyita Offload: Offloading dressing of the first metatarsophalangeal joint and left hallux Vascular: Vascular status intact with palpable pedal pulses Edema: Elevation of the left lower extremity and right lower extremity control to control edema. Patient instructed to wear double Tubigrip stockings Infection: No localized signs of infection Pain: May take [id number] Tylenol, safe oral anti-inflammatory use discussed. Host factors: Chronic venous insufficiency I answered all the patient's questions. To return to the wound healing center in 1 week or call sooner if the patient has any questions or concerns. Note: [employer] speech recognition refresh technician software was used to create portions of this document. Sound-alike and misspelled words, as well as other refresh technician errors may be contained in the documentation.
[2021-10-16 10:12] VITALS: BP 152/63; PULSE 87; TEMP 36.1; BMI 25.7
--- NOTE | 2021-10-16 10:46 | PN.PCM_ITS ---
History of Present Illness Date of Service: 10/16/21 Chief Complaint: Left leg swelling and left anterior leg ulceration, left hallux plantar wound History of Wound: Patient has been treated with Chuyita to both ulceration sites and an offloading pad to the left hallux. Subjective Subjective This is an 86-year-old female who presents today to the wound care center for follow-up of left lower extremity ulceration and left hallux ulceration overlying the interphalangeal joint. She denies any nausea, vomiting, chills, fever, shortness of breath, or other constitutional symptoms. Her health aide digital sales assistant is present with her today and continues to help her change her dressings daily and applies an offloading pad to the first metatarsal head plantarly to offload the hallux distally. She also has wounds on her right lower extremity secondary to scratching herself and a wound right lateral malleolus. She also has a wound that occurred after she showered to her right medial leg. She denies any complaints today. Objective Data Objective Data Vital Signs: Vital Signs Temp Pulse Resp BP 97 F L 87 18 152/63 H 10/16/21 10:12 10/16/21 10:12 09/25/21 13:31 10/16/21 10:12 Weight: 70.307 kg Body Mass Index (BMI) 25.7 Physical Exam Const alert, oriented x3 and no apparent distress General Appearance: cooperative and comfortable Eyes General Eye: normal appearance of both eyes Neck General: normal visual inspection Lymph Lymphatic: no lymphadenopathy noted and no lymphedema noted Resp normal respiratory effort Cardio regular rate and regular rhythm Extremity Left Lower Extremity: foot and digits Positive for ROM (Decreased hallux range of motion 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 Left lower extremity ulceration anterior with localized rubor and granular tissue in the wound bed, no malodor, no purulence or other localized signs of infection, adjacent skin is atrophic and thin. Left hallux IPJ some hyp erkeratotic tissue noted with no localized erythema, purulent drainage, malodor, red streaking or other localized signs of infection. Right lower extremity ulceration anterior lateral secondary to scratching herself has scabbed over. Site demonstrates no localized erythema, malodor, purulent drainage, or other localized signs of infection. Right distal lateral wound just posterior to the lateral malleolus secondary to venous insufficiency demonstrates granular base with mixed fibrotic tissue and no localized signs of infection. Right medial leg proximal to the medial malleolus secondary to venous insufficiency demonstrates granular base with no localized signs of infection. General Skin Exam: venous stasis Neuro oriented x3 and moves all extremities Motor Exam: strength 5/5 throughout Debridement Note Debridement Note Wound debrided: Left anterior leg Laterality: Left Wound Grade/Stage: Russell stage I Type of Debridement: Excisional debridement Anesthesia Used: 5% Lidocaine Gel Depth: in the subcutaneous layer Percentage of wound debrided: 100 Instrument Used: 3mm curette Tissue Removed: Fibrous, devitalized subcutaneous, biofilm, slough Severity: Fat Layer Exposed Amount of bleeding with debridement: Mild Bleeding Controlled with: Pressure Patient tolerated procedure: Patient tolerated procedure well Post-Debridement Measurements and Additional Note: Post-Debridement Measurements/Treatment - Nurse 1 - General Ulcer Assessment Start: 09/25/21 12:46 Freq: Status: Active Protocol: ALEX Activity Type Activity Date Activity User E-Sign Co-Sign Detail Recorded Client Recorded Date Recorded By Document 09/25/21 13:31 JAVIER [id number] 09/25/21 13:36 JAVIER Document 10/02/21 10:07 TORSTEN [id number] 10/02/21 10:21 KR Document 10/09/21 10:53 AK [id number] 10/09/21 10:58 AK Document 10/16/21 10:12 AK [id number] 10/16/21 10:25 AK 09/25/21 10/02/21 10/09/21 13:31 10:07 10:53 - Today's Visit Information Type of service Follow-up Visit Follow-up Visit Follow-up Visit (Physician/FACILITIES MECHANICAL DESIGN ENGINEER (Physician/FACILITIES MECHANICAL DESIGN ENGINEER (Physician/FACILITIES MECHANICAL DESIGN ENGINEER ) ) ) Arrival Mode Ambulatory Ambulatory Ambulatory Accompanied by caregiver Patient Identification Verified (Name & Yes Yes ) Patient Requires Transmission-Based No No Precautions Safety Precautions Height and Weight Body Mass Index (BMI) 25.7 25.7 25.7 BMI Classification Overweight Overweight Overweight Vital Signs Temperature (97.8 F-99.1 F) 96.1 F L 97.0 F L 97.4 F L Temperature Source Temporal Temporal Temporal Pulse Rate (60-100) 85 81 74 Pulse Location Monitor Monitor Monitor Respiratory Rate (12-18) 18 Respiratory rate source Observation Blood Pressure (90/60-120/80) 161/81 H 132/74 H 128/74 H Blood Pressure Mean (mm Hg) 107 93 92 Source Monitor Monitor Monitor Position Semi-Fowlers Sitting Sitting Blood Pressure Location Right Arm Left Arm Right Arm History Since Last Visit- (Skip if this is Patient's initial visit) Have you changed medications since your No No No last visit? Any new allergies or adverse reactions No No No Had a fall/change in ADL's that may No No No increase risk of falls Signs or symptoms of abuse and/or No No No neglect since last visit Have you been in the hospital since your No No No last visit? Has dressing in place as prescribed Yes Yes Yes Has compression in place as prescribed No N/A N/A Has offloadiing in place as prescribed N/A N/A N/A Experienced any changes in pain level or No No No management Left Footwear Regular Shoe Regular Shoe Regular Shoe Right Footwear Regular Shoe Regular Shoe Regular Shoe Pain Scale: 0-10 Numeric Is Patient Pain Free? Yes Yes No 10/16/21 10:12 WC - Today's Visit Information Type of service Follow-up Visit (Physician/FACILITIES MECHANICAL DESIGN ENGINEER ) Arrival Mode Ambulatory,Cane Accompanied by Patient Identification Verified (Name & Yes ) Patient Requires Transmission-Based No Precautions Safety Precautions NA Height and Weight Body Mass Index (BMI) 25.7 BMI Classification Overweight Vital Signs Temperature (97.8 F-99.1 F) 97 F L Temperature Source Temporal Pulse Rate (60-100) 87 Pulse Location Monitor Respiratory Rate (12-18) Respiratory rate source Blood Pressure (90/60-120/80) 152/63 H Blood Pressure Mean (mm Hg) 92 Source Monitor Position Blood Pressure Location History Since Last Visit- (Skip if this is Patient's initial visit) Have you changed medications since your No last visit? Any new allergies or adverse reactions No Had a fall/change in ADL's that may No increase risk of falls Signs or symptoms of abuse and/or No neglect since last visit Have you been in the hospital since your No last visit? Has dressing in place as prescribed Yes Has compression in place as prescribed No Has offloadiing in place as prescribed N/A Experienced any changes in pain level or No management Left Footwear Regular Shoe Right Footwear Regular Shoe Pain Scale: 0-10 Numeric Is Patient Pain Free? Yes WC - Nurse 1 - General Ulcer Measurement Start: 09/25/21 12:46 Freq: Status: Active Protocol: Activity Type Activity Date Activity User E-Sign Co-Sign Detail Recorded Client Recorded Date Recorded By Document 09/25/21 13:31 [id number] 09/25/21 13:36 JF Document 10/02/21 10:07 KR [id number] 10/02/21 10:21 KR Document 10/09/21 10:53 AK [id number] 10/09/21 10:58 AK Document 10/16/21 10:12 AK [id number] 10/16/21 10:25 AK 09/25/21 10/02/21 10/09/21 13:31 10:07 10:53 Wound Center Nurse 1 #6 right lower leg -Combined with other wound No -Current Size (cm) - Length 0.8 0.1 0.1 -Current Size (cm) - Width 0.7 0.1 0.1 -Current Size (cm) - Depth 0.1 0.1 0.1 -Total Square Cm 0.56 0.01 0.01 -Photo Taken Yes -Epithelialization Small 1-33% -Tunneling No -Undermining/Tunneling No -Circular Undermining No -Classification - 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) -Exudate Amt Small -Exudate Type Serosanguineous -Wound Margin Flat & Intact Distinct, Outline Attached -Granulation Amt Small (1-33%) -Granulation Quality [place] -Slough/Fibrin Yes -Necrosis Amt Small (1-33%) -Necrotic Tissue Type Adherent Slough -Structure Exposed N/A -Texture (Vangie-wound Skin Appearance) Assessed Assessed, Scarring -Moisture (Vangie-wound Skin Appearance) Assessed,Dry/ Assessed,Dry/ Scaly Scaly -Color (Vangie-wound Skin Appearance) Assessed No Abnormality, Assessed -Temperature (Vangie-wound Skin No Abnormality No Abnormality No Abnormality Appearance) (Pt Warm) (Pt Warm) (Pt Warm) -Tenderness on Palpation (Vangie-wound No No No Skin Appearance) -Ulcer Cleansing Rinsed/ Rinsed/ Rinsed/ Irrigated with Irrigated with Irrigated with Saline Saline Saline -Foul Odor after Cleansing No No No -Anesthetic Used 4% Lidocaine 5% Lidocaine 4% Lidocaine Solution Gel Solution #5 r lateral ankle -Combined with other wound No -Current Size (cm) - Length 0.3 0.2 0.1 -Current Size (cm) - Width 0.4 2 0.1 -Current Size (cm) - Depth 0.1 0.1 0.1 -Total Square Cm 0.12 0.4 0.01 -Photo Taken No -Epithelialization Small 1-33% -Tunneling No -Undermining/Tunneling No -Circular Undermining No -Classification - 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) -Change in Wound Grade/Stage -Exudate Amt Small Small -Exudate Type Serosanguineous Serosanguineous -Wound Margin Flat & Intact Distinct, Outline Attached -Granulation Amt Medium (34-66%) Small (1-33%) -Granulation Quality Red Red -Slough/Fibrin Yes -Necrosis Amt Small (1-33%) Small (1-33%) -Necrotic Tissue Type Adherent Slough Adherent Slough -Structure Exposed N/A -Texture (Vangie-wound Skin Appearance) Assessed Assessed, Scarring -Moisture (Vangie-wound Skin Appearance) Assessed,Dry/ Assessed,Dry/ Scaly Scaly -Color (Vangie-wound Skin Appearance) Assessed No Abnormality, Assessed -Temperature (Vangie-wound Skin No Abnormality No Abnormality Appearance) (Pt Warm) (Pt Warm) -Tenderness on Palpation (Vangie-wound No No Skin Appearance) -Ulcer Cleansing Rinsed/ Rinsed/ Irrigated with Irrigated with Saline Saline -Foul Odor after Cleansing No No -Anesthetic Used 4% Lidocaine 5% Lidocaine Solution Gel #4 l great toe tip -Combined with other wound No -Current Size (cm) - Length 0.5 0.5 -Current Size (cm) - Width 0.6 0.1 -Current Size (cm) - Depth 0.1 0.1 -Total Square Cm 0.30 0.05 -Photo Taken Yes -Epithelialization Small 1-33% -Tunneling No -Undermining/Tunneling No -Circular Undermining No -Classification - 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) -Exudate Amt Small Small -Exudate Type Serosanguineous Serosanguineous -Wound Margin Flat & Intact Distinct, Outline Attached -Granulation Amt Small (1-33%) Small (1-33%) -Granulation Quality Red Red -Slough/Fibrin Yes -Necrosis Amt Small (1-33%) Small (1-33%) -Necrotic Tissue Type Adherent Slough Adherent Slough -Structure Exposed N/A -Texture (Vangie-wound Skin Appearance) Assessed Assessed,Callus ,Scarring -Moisture (Vangie-wound Skin Appearance) Assessed, No Abnormality, Maceration Assessed -Color (Vangie-wound Skin Appearance) Assessed No Abnormality, Assessed -Temperature (Vangie-wound Skin No Abnormality No Abnormality Appearance) (Pt Warm) (Pt Warm) -Tenderness on Palpation (Vangie-wound No No Skin Appearance) -Ulcer Cleansing Rinsed/ Rinsed/ Irrigated with Irrigated with Saline Saline -Foul Odor after Cleansing No No -Anesthetic Used 4% Lidocaine 5% Lidocaine Solution Gel #2 Left Gr Toe -Combined with other wound No -Current Size (cm) - Length 0.6 0.5 0.1 -Current Size (cm) - Width 1.1 0.5 0.1 -Current Size (cm) - Depth 0.1 0.1 0.1 -Total Square Cm 0.66 0.25 0.01 -Photo Taken Yes -Epithelialization None Present -Tunneling No -Undermining/Tunneling No -Circular Undermining No -Exudate Amt Small Small None Present -Exudate Type Serosanguineous Serosanguineous -Wound Margin Thickened Distinct, Distinct, Outline Outline Attached Attached -Granulation Amt Small (1-33%) Small (1-33%) -Granulation Quality Red Red -Slough/Fibrin Yes Yes -Necrosis Amt Small (1-33%) Small (1-33%) Large (67-100%) -Necrotic Tissue Type Adherent Slough Adherent Slough Eschar -Structure Exposed N/A -Texture (Vangie-wound Skin Appearance) Assessed,Callus Assessed,Callus Assessed, ,Scarring Localized Edema -Moisture (Vangie-wound Skin Appearance) Assessed,Dry/ No Abnormality, Assessed,Dry/ Scaly Assessed Scaly -Color (Vangie-wound Skin Appearance) Assessed No Abnormality, No Abnormality, Assessed Assessed -Temperature (Vangie-wound Skin No Abnormality No Abnormality No Abnormality Appearance) (Pt Warm) (Pt Warm) (Pt Warm) -Tenderness on Palpation (Vangie-wound No No No Skin Appearance) -Ulcer Cleansing Rinsed/ Rinsed/ Rinsed/ Irrigated with Irrigated with Irrigated with Saline Saline Saline -Foul Odor after Cleansing No No No -Anesthetic Used 4% Lidocaine 5% Lidocaine 4% Lidocaine Solution Gel Solution #3 left anterior leg -Combined with other wound No -Current Size (cm) - Length 1.5 1.4 0.1 -Current Size (cm) - Width 1.0 0.5 0.6 -Current Size (cm) - Depth 0.1 0.1 0.1 -Total Square Cm 1.50 0.70 0.06 -Photo Taken Yes -Epithelialization Small 1-33% -Tunneling No -Undermining/Tunneling No -Circular Undermining No -Change in Wound Grade/Stage -Exudate Amt Small Small Small -Exudate Type Serosanguineous Serosanguineous Serosanguineous -Wound Margin Flat & Intact Distinct, Distinct, Outline Outline Attached Attached -Granulation Amt Medium (34-66%) Medium (34-66%) Small (1-33%) -Granulation Quality Red Red [place] -Slough/Fibrin Yes -Necrosis Amt Small (1-33%) Small (1-33%) Small (1-33%) -Necrotic Tissue Type Adherent Slough Adherent Slough Adherent Slough -Structure Exposed N/A -Texture (Vangie-wound Skin Appearance) Assessed, Assessed, Assessed, Localized Edema Scarring Scarring -Moisture (Vangie-wound Skin Appearance) Assessed,Dry/ No Abnormality, Assessed,Dry/ Scaly Assessed Scaly -Color (Vangie-wound Skin Appearance) Assessed No Abnormality, No Abnormality, Assessed Assessed -Temperature (Vangie-wound Skin No Abnormality No Abnormality No Abnormality Appearance) (Pt Warm) (Pt Warm) (Pt Warm) -Tenderness on Palpation (Vangie-wound No No No Skin Appearance) -Ulcer Cleansing Rinsed/ Rinsed/ Rinsed/ Irrigated with Irrigated with Irrigated with Saline Saline Saline -Foul Odor after Cleansing No No No -Anesthetic Used 4% Lidocaine 5% Lidocaine 4% Lidocaine Solution Gel Solution Lower Limb Edema Present No 10/16/21 10:12 Wound Center Nurse 1 #6 right lower leg -Combined with other wound No -Current Size (cm) - Length 0.1 -Current Size (cm) - Width 0.1 -Current Size (cm) - Depth 0.1 -Total Square Cm 0.01 -Photo Taken No -Epithelialization -Tunneling No -Undermining/Tunneling No -Circular Undermining No -Classification - Russell Grading ( Diabetic Ulcer) -Exudate Amt None Present -Exudate Type -Wound Margin -Granulation Amt -Granulation Quality Hyper- granulation,N/A -Slough/Fibrin No -Necrosis Amt None Present (0 %) -Necrotic Tissue Type -Structure Exposed N/A -Texture (Vangie-wound Skin Appearance) No Abnormality, Assessed -Moisture (Vangie-wound Skin Appearance) Assessed,Dry/ Scaly -Color (Vangie-wound Skin Appearance) No Abnormality, Assessed -Temperature (Vangie-wound Skin No Abnormality Appearance) (Pt Warm) -Tenderness on Palpation (Vangie-wound No Skin Appearance) -Ulcer Cleansing Rinsed/ Irrigated with Saline -Foul Odor after Cleansing No -Anesthetic Used 4% Lidocaine Solution #5 r lateral ankle -Combined with other wound No -Current Size (cm) - Length 0.1 -Current Size (cm) - Width 0.1 -Current Size (cm) - Depth 0.1 -Total Square Cm 0.01 -Photo Taken No -Epithelialization -Tunneling No -Undermining/Tunneling No -Circular Undermining No -Classification - Russell Grading ( Diabetic Ulcer) -Change in Wound Grade/Stage No -Exudate Amt None Present -Exudate Type -Wound Margin Distinct, Outline Attached -Granulation Amt None Present (0 %) -Granulation Quality -Slough/Fibrin No -Necrosis Amt None Present (0 %) -Necrotic Tissue Type -Structure Exposed N/A -Texture (Vangie-wound Skin Appearance) No Abnormality, Assessed -Moisture (Vangie-wound Skin Appearance) No Abnormality, Dry/Scaly -Color (Vangie-wound Skin Appearance) No Abnormality, Assessed -Temperature (Vangie-wound Skin No Abnormality Appearance) (Pt Warm) -Tenderness on Palpation (Vangie-wound No Skin Appearance) -Ulcer Cleansing Rinsed/ Irrigated with Saline -Foul Odor after Cleansing No -Anesthetic Used 4% Lidocaine Solution #4 l great toe tip -Combined with other wound -Current Size (cm) - Length -Current Size (cm) - Width -Current Size (cm) - Depth -Total Square Cm -Photo Taken -Epithelialization -Tunneling -Undermining/Tunneling -Circular Undermining -Classification - Russell Grading ( Diabetic Ulcer) -Exudate Amt -Exudate Type -Wound Margin -Granulation Amt -Granulation Quality -Slough/Fibrin -Necrosis Amt -Necrotic Tissue Type -Structure Exposed -Texture (Vangie-wound Skin Appearance) -Moisture (Vangie-wound Skin Appearance) -Color (Vangie-wound Skin Appearance) -Temperature (Vangie-wound Skin Appearance) -Tenderness on Palpation (Vangie-wound Skin Appearance) -Ulcer Cleansing -Foul Odor after Cleansing -Anesthetic Used #2 Left Gr Toe -Combined with other wound No -Current Size (cm) - Length 0.2 -Current Size (cm) - Width 0.4 -Current Size (cm) - Depth 0.2 -Total Square Cm 0.08 -Photo Taken No -Epithelialization None Present -Tunneling No -Undermining/Tunneling No -Circular Undermining No -Exudate Amt Medium -Exudate Type Serosanguineous -Wound Margin Distinct, Outline Attached -Granulation Amt Small (1-33%) -Granulation Quality N/A,[place] -Slough/Fibrin Yes -Necrosis Amt Small (1-33%) -Necrotic Tissue Type Adherent Slough -Structure Exposed N/A -Texture (Vangie-wound Skin Appearance) Assessed,Callus -Moisture (Vangie-wound Skin Appearance) Assessed,Dry/ Scaly -Color (Vangie-wound Skin Appearance) No Abnormality, Assessed -Temperature (Vangie-wound Skin No Abnormality Appearance) (Pt Warm) -Tenderness on Palpation (Vangie-wound No Skin Appearance) -Ulcer Cleansing Rinsed/ Irrigated with Saline -Foul Odor after Cleansing No -Anesthetic Used 4% Lidocaine Solution #3 left anterior leg -Combined with other wound No -Current Size (cm) - Length 0.8 -Current Size (cm) - Width 0.5 -Current Size (cm) - Depth 0.1 -Total Square Cm 0.40 -Photo Taken No -Epithelialization None Present -Tunneling No -Undermining/Tunneling No -Circular Undermining No -Change in Wound Grade/Stage No -Exudate Amt Medium -Exudate Type Serosanguineous -Wound Margin Distinct, Outline Attached -Granulation Amt None Present (0 %) -Granulation Quality N/A -Slough/Fibrin Yes -Necrosis Amt Medium (34-66%) -Necrotic Tissue Type Adherent Slough -Structure Exposed N/A -Texture (Vangie-wound Skin Appearance) No Abnormality, Assessed -Moisture (Vangie-wound Skin Appearance) No Abnormality, Assessed -Color (Vangie-wound Skin Appearance) No Abnormality, Assessed -Temperature (Vangie-wound Skin No Abnormality Appearance) (Pt Warm) -Tenderness on Palpation (Vangie-wound No Skin Appearance) -Ulcer Cleansing Rinsed/ Irrigated with Saline -Foul Odor after Cleansing No -Anesthetic Used 4% Lidocaine Solution Lower Limb Edema Present No WC - Nurse 2 - General Ulcer CM Notes Start: 09/25/21 12:46 Freq: Status: Active Protocol: Activity Type Activity Date Activity User E-Sign Co-Sign Detail Recorded Client Recorded Date Recorded By Document 09/25/21 11:21 PL [id number] 09/26/21 07:27 PL Document 10/02/21 13:28 PL [id number] 10/02/21 13:32 PL Document 10/09/21 15:38 PL [id number] 10/09/21 15:45 PL 09/25/21 10/02/21 10/09/21 11:21 13:28 15:38 Wound Center Nurse 2 #6 right lower leg -Time 10:57 10:44 11:28 -Correct Patient Yes Yes Yes -Correct Side, Site, Position Yes Yes Yes -Correct Procedure Yes Yes Yes -Procedure Performed Yes Yes Yes -Type of Procedure Debridement Debridement Debridement -Clinical Debridement Subcutaneous Subcutaneous Subcutaneous -Tissue Removed Subcutaneous Subcutaneous Subcutaneous -Post Debridement (cm) - Length 0.8 0.1 0.1 -Post Debridement (cm) - Width 0.7 0.1 0.1 -Post Debridement (cm) - Depth 0.1 0.1 0.1 -Total Square (Post) (cm) 0.56 0.01 0.01 -Area of Debridement (cm) - Length 0.8 0.1 0.1 -Area of Debridement (cm) - Width 0.7 0.1 0.1 -Total Square (Area) (cm) 0.56 0.01 0.01 -Tunneling No No No -Undermining/Tunneling No No No -Circular Undermining No No No -Wound/Ulcer Outcome Not Healed Not Healed Not Healed -Ulcer Cleansing Rinsed/ Rinsed/ Rinsed/ Irrigated with Irrigated with Irrigated with Saline Saline Saline -Foul Odor after Cleansing No No No -Bioengineered Tissue No No No -Bleeding Controlled with Pressure Pressure Pressure -Treatment Response Procedure Procedure Procedure Tolerated Well Tolerated Well Tolerated Well -Debridement - Subq, 1st 20sq cm No No No #5 r lateral ankle -Time 10:57 10:44 11:28 -Correct Patient Yes Yes Yes -Correct Side, Site, Position Yes Yes Yes -Correct Procedure Yes Yes Yes -Procedure Performed Yes Yes Yes -Type of Procedure Debridement Debridement Debridement -Clinical Debridement Subcutaneous Subcutaneous Subcutaneous -Tissue Removed Subcutaneous Subcutaneous Subcutaneous -Post Debridement (cm) - Length 0.3 0.2 0.1 -Post Debridement (cm) - Width 0.4 2 0.1 -Post Debridement (cm) - Depth 0.1 0.1 0.1 -Total Square (Post) (cm) 0.12 0.4 0.01 -Area of Debridement (cm) - Length 0.3 0.2 0.1 -Area of Debridement (cm) - Width 0.4 2 0.1 -Total Square (Area) (cm) 0.12 0.4 0.01 -Tunneling No No No -Undermining/Tunneling No No No -Circular Undermining No No No -Wound/Ulcer Outcome Not Healed Not Healed Not Healed -Ulcer Cleansing Rinsed/ Rinsed/ Rinsed/ Irrigated with Irrigated with Irrigated with Saline Saline Saline -Foul Odor after Cleansing No No No -Bioengineered Tissue No No No -Bleeding Controlled with Pressure Pressure Pressure -Treatment Response Procedure Procedure Procedure Tolerated Well Tolerated Well Tolerated Well -Debridement - Subq, 1st 20sq cm No No No #4 l great toe tip -Time 10:57 10:44 -Correct Patient Yes Yes -Correct Side, Site, Position Yes Yes -Correct Procedure Yes Yes -Procedure Performed Yes Yes No -Type of Procedure Debridement Debridement -Clinical Debridement Subcutaneous Subcutaneous -Tissue Removed Subcutaneous Subcutaneous -Post Debridement (cm) - Length 0.5 0.5 -Post Debridement (cm) - Width 0.6 0.1 -Post Debridement (cm) - Depth 0.1 0.1 -Total Square (Post) (cm) 0.30 0.05 -Area of Debridement (cm) - Length 0.5 0.5 -Area of Debridement (cm) - Width 0.6 0.1 -Total Square (Area) (cm) 0.30 0.05 -Tunneling No No -Undermining/Tunneling No No -Circular Undermining No No -Wound/Ulcer Outcome Not Healed Not Healed Healed- Epithelialized -Ulcer Cleansing Rinsed/ Rinsed/ Irrigated with Irrigated with Saline Saline -Foul Odor after Cleansing No No -Bioengineered Tissue No No -Bleeding Controlled with Pressure Pressure -Treatment Response Procedure Procedure Tolerated Well Tolerated Well -Debridement - Subq, 1st 20sq cm No No #2 Left Gr Toe -Time 10:57 10:44 11:28 -Correct Patient Yes Yes Yes -Correct Side, Site, Position Yes Yes Yes -Correct Procedure Yes Yes Yes -Procedure Performed Yes Yes Yes -Type of Procedure Debridement Debridement Debridement -Clinical Debridement Subcutaneous Subcutaneous Subcutaneous -Tissue Removed Subcutaneous Subcutaneous Subcutaneous -Post Debridement (cm) - Length 0.6 0.5 0.1 -Post Debridement (cm) - Width 1.1 0.5 0.1 -Post Debridement (cm) - Depth 0.1 0.1 0.1 -Total Square (Post) (cm) 0.66 0.25 0.01 -Area of Debridement (cm) - Length 0.6 0.5 0.1 -Area of Debridement (cm) - Width 1.1 0.5 0.1 -Total Square (Area) (cm) 0.66 0.25 0.01 -Tunneling No No No -Undermining/Tunneling No No No -Circular Undermining No No No -Wound/Ulcer Outcome Not Healed Not Healed Not Healed -Ulcer Cleansing Rinsed/ Rinsed/ Rinsed/ Irrigated with Irrigated with Irrigated with Saline Saline Saline -Foul Odor after Cleansing No No No -Bioengineered Tissue No No No -Bleeding Controlled with Pressure Pressure Pressure -Treatment Response Procedure Procedure Procedure Tolerated Well Tolerated Well Tolerated Well -Debridement - Subq, 1st 20sq cm No No No #3 left anterior leg -Time 10:57 10:44 11:28 -Correct Patient Yes Yes Yes -Correct Side, Site, Position Yes Yes Yes -Correct Procedure Yes Yes Yes -Procedure Performed Yes Yes Yes -Type of Procedure Debridement Debridement Debridement -Clinical Debridement Subcutaneous Subcutaneous Subcutaneous -Tissue Removed Subcutaneous Subcutaneous Subcutaneous -Post Debridement (cm) - Length 1.5 1.4 0.1 -Post Debridement (cm) - Width 1.0 0.5 0.6 -Post Debridement (cm) - Depth 0.1 0.1 0.1 -Total Square (Post) (cm) 1.50 0.70 0.06 -Area of Debridement (cm) - Length 1.5 1.4 0.1 -Area of Debridement (cm) - Width 1.0 0.5 0.6 -Total Square (Area) (cm) 1.50 0.70 0.06 -Tunneling No No No -Undermining/Tunneling No No No -Circular Undermining No No No -Wound/Ulcer Outcome Not Healed Not Healed Not Healed -Ulcer Cleansing Rinsed/ Rinsed/ Rinsed/ Irrigated with Irrigated with Irrigated with Saline Saline Saline -Foul Odor after Cleansing No No No -Bioengineered Tissue No No No -Bleeding Controlled with Pressure Pressure Pressure -Treatment Response Procedure Procedure Procedure Tolerated Well Tolerated Well Tolerated Well -Debridement - Subq, 1st 20sq cm Yes Yes Yes Pain Scale: 0-10 Numeric Is Patient Pain Free? Yes Yes Yes WC - Nurse 3 - General Ulcer D/C NN Start: 09/25/21 12:46 Freq: Status: Active Protocol: Activity Type Activity Date Activity User E-Sign Co-Sign Detail Recorded Client Recorded Date Recorded By Document 09/25/21 15:31 AK [id number] 09/25/21 15:35 AK Document 10/09/21 12:05 KR [id number] 10/09/21 12:07 KR 09/25/21 10/09/21 15:31 12:05 Wound Care Nurse 3 #6 right lower leg -Ulcer Cleansing Rinsed/ Rinsed/ Irrigated with Irrigated with Saline Saline -Foul Odor after Cleansing No -Negative Pressure Wound Therapy N/A -Primary Dressing Applied Promogran Promogran Chuyita Matter Chuyita Matter -Primary Dressing Covered/Secured with Dry Gauze, Dry Gauze,Dry Secured with Gauze & Roll Tape Gauze,Secured with Tape -Promogran Chuyita Matter 1 1 #5 r lateral ankle -Ulcer Cleansing Rinsed/ Rinsed/ Irrigated with Irrigated with Saline Saline -Primary Dressing Applied Promogran Chuyita Matter -Primary Dressing Covered/Secured with Dry Gauze, Dry Gauze, Secured with Secured with Tape Tape -Promogran Chuyita Matter 0 #4 l great toe tip -Ulcer Cleansing Rinsed/ Rinsed/ Irrigated with Irrigated with Saline Saline -Foul Odor after Cleansing No -Negative Pressure Wound Therapy N/A -Primary Dressing Applied Promogran Promogran Chuyita Matter Chuyita Matter -Primary Dressing Covered/Secured with Dry Gauze, Secured with Secured with Tape Tape -Promogran Chuyita Matter 0 1 #2 Left Gr Toe -Ulcer Cleansing Rinsed/ Rinsed/ Irrigated with Irrigated with Saline Saline -Foul Odor after Cleansing No -Negative Pressure Wound Therapy N/A -Primary Dressing Applied Promogran Chuyita Matter -Primary Dressing Covered/Secured with Dry Gauze, Dry Gauze, Secured with Secured with Tape Tape -Promogran Chuyita Matter 0 #3 left anterior leg -Ulcer Cleansing Rinsed/ Rinsed/ Irrigated with Irrigated with Saline Saline -Foul Odor after Cleansing No -Negative Pressure Wound Therapy N/A -Primary Dressing Applied Promogran Chuyita Matter -Primary Dressing Covered/Secured with Dry Gauze, Dry Gauze, Secured with Secured with Tape Tape -Promogran Chuyita Matter 0 Right -Tubular Bandage Double Layer -Size of Tubigrip Used Size E -Size E ($) 2 Left -Lotion applied to leg before No compression wrap -Tubular Bandage Double Layer -Size of Tubigrip Used Size D -Size D ($) 2 -Other own Pain Scale: 0-10 Numeric Is Patient Pain Free? Yes Yes WC - Visit Discharge Discharge Condition Stable Stable Ambulatory Status Ambulatory,Cane Transportation Private Auto Private Auto Accompanied by caregiver Medication Reconcilliation completed & Yes provided to patient/care provider Clinical Summary of Care Provided Yes Additional Wound Wound debrided: Left plantar hallux Laterality: Left Type of Debridement: Excisional debridement Depth: in the subcutaneous layer Percentage of wound debrided: 100 Instrument Used: - (#313 blade) Tissue Removed: Fibrous, devitalized subcutaneous, biofilm, slough Severity: Fat Layer Exposed Amount of bleeding with debridement: Mild Bleeding Controlled with: Pressure Patient tolerated procedure: Patient tolerated procedure well Additional Wound Wound debrided: Right lateral ankle Laterality: Right Wound Grade/Stage: Russell stage I Type of Debridement: Excisional debridement Anesthesia Used: 5% Lidocaine Gel Depth: in the subcutaneous layer Percentage of wound debrided: 100 Instrument Used: 3mm curette Tissue Removed: Fibrous, devitalized subcutaneous, biofilm, slough Severity: Fat Layer Exposed Amount of bleeding with debridement: Mild Bleeding Controlled with: Pressure Patient tolerated procedure: Patient tolerated procedure well Additional Wound Wound debrided: Right medial leg Laterality: Right Wound Grade/Stage: Russell stage I Type of Debridement: Excisional debridement Anesthesia Used: 5% Lidocaine Gel Depth: in the subcutaneous layer Percentage of wound debrided: 100 Instrument Used: 3mm curette Tissue Removed: Fibrous, devitalized subcutaneous, biofilm, slough Severity: Fat Layer Exposed Amount of bleeding with debridement: Mild Bleeding Controlled with: Pressure Patient tolerated procedure: Patient tolerated procedure well Assessment/Plan Assessment/Plan (1) Non-pressure 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: CODE(S): L97.522 - Non-pressure 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 (2) Non-pressure chronic ulcer of left calf with fat layer exposed: CODE(S): L97.222 - Non-pressure chronic ulcer of left calf with fat layer exposed (3) Varicose veins of left lower extremity with ulcer of calf: CODE(S): I83.022 - Varicose veins of left lower extremity with ulcer of calf (4) Chronic venous insufficiency: (5) Leg edema, left: CODE(S): R60.0 - Localized edema (6) COPD (chronic obstructive pulmonary disease): CODE(S): J44.9 - Chronic obstructive pulmonary disease, unspecified (7) Spinal stenosis: CODE(S): M48.00 - Spinal stenosis, site unspecified (8) Back pain: CODE(S): M54.9 - Dorsalgia, unspecified (9) Edema leg: CODE(S): R60.0 - Localized edema (10) Non-pressure chronic ulcer of right calf with fat layer exposed: CODE(S): L97.212 - Non-pressure chronic ulcer of right calf with fat layer exposed (11) Non-pressure chronic ulcer of right ankle with fat layer exposed: CODE(S): L97.312 - Non-pressure chronic ulcer of right ankle with fat layer exposed PLAN: This is an 86-year-old female with history of COPD and spinal stenos is who presents to the wound care clinic for follow-up of left lower extremity anterior ulceration secondary to chronic venous insufficiency. She also has a left medial hallux IPJ ulceration secondary to decreased range of motion at the first metatarsophalangeal joint due to end-stage arthritis. She had venous studies performed confirming reflux of the left great saphenous vein with no deep venous thrombosis bilaterally. Wounds present to right anterior lateral leg ulceration secondary to scratching herself and right ankle ulceration posterior to the lateral malleolus, and right medial leg proximal to the medial malleolus secondary to chronic venous insufficiency. Left anterior lower extremity ulceration secondary to venous insufficiency and left plantar hallux wound secondary to hallux limitus/end- stage arthritis of the first metatarsophalangeal joint. Ulceration site left lower extremity, Russell stage I, was debrided sharply with a 3 mm curette. Ulceration site is continuing to show progression and decreasing in size. Debridement performed to remove fibrous, devitalized tissue, biofilm, and slough. Left lower extremity anterior ulceration site demonstrates no localized signs of infection. I debrided the left hallux medial IPJ hyperkeratotic tissue with a #313 blade removing all nonviable tissue, devitalized subcutaneous, biofilm, and slough of this Russell stage I ulceration. Left hallux demonstrates no erythema, no purulence, no proximal red streaking or other localized signs of infection. Left hallux ulceration site is showing progression and decreasing in size overall with less callus buildup. This wound is nearing closure. Patient continues to offload the first metatarsophalangeal joint and hallux with an offloading pad to the plantar first metatarsal head. 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 I discussed continuing to wear the surgical shoe to the left foot to prevent the ends of her toes from hitting in her shoe. She has developed wounds to the right anterior lateral lower extremity, right ankle posterior to the lateral malleolus, and right medial lower extremity proximal to the medial malleolus. These ulceration sites were sharply debrided with a 3 mm curette. Right lateral ankle wound and medial ankle wound continues to show progression and is nearing closure. Right anterior lateral leg wound progressing and currently has a stable scab over the wound site, this was left intact. Ulcerations demonstrate no localized signs of infection. Ulceration sites dressed with Chuyita dry sterile dressing and double Tubigrip applied to the bilateral lower extremities. Hallux ulceration site was dressed with Chuyita, 2 x 2 gauze, cotton padding, Coban and an offloading pad to the first metatarsophalangeal joint. I discussed continued offloading of the hallux ulceration site with felt pads, surgical shoe, or foam inserts. Toppiece Chopper states she will continue to apply the felt offloading pads to the first metatarsal head plantarly. Patient went to the office September 25, 2021 to pick out a set of shoes. We will await arrival of protective shoes with inserts. Patient to continue to elevate lower extremities in addition to wearing her Tubigrip compression stockings bilateral to aid in edema control. I discussed with her that she is to continue to elevate her feet at times of rest and dorsiflex and plantarflex her foot a few times to aid in venous return by utilization of her calf muscle. Patient voices understanding of this. I reviewed and discussed his case today. Debridement was performed today as noted in the clinical panel to all of the ulcer sites. The following work up and care recommendations were made: Dressing: Chuyita anterior left leg and right leg; Chuyita right ankle lateral and medial; Chuyita left hallux, 2 x 2 gauze, cotton, Coban and an offloading pad to the first metatarsophalangeal joint Wash: Soap and water Tissue growth optimization: Chuyita Offload: Offloading dressing of the first metatarsophalangeal joint and left hallux Vascular: Vascular status intact with palpable pedal pulses Edema: Elevation of the left lower extremity and right lower extremity control to control edema. Patient instructed to wear double Tubigrip stockings Infection: No localized signs of infection Pain: May take [id number] Tylenol, safe oral anti-inflammatory use discussed. Host factors: Chronic venous insufficiency I answered all the patient's questions. To return to the wound healing center in 1 week or call sooner if the patient has any questions or concerns. Note: [employer] speech recognition top flavor attendant software was used to create portions of this document. Sound-alike and misspelled words, as well as other top flavor attendant errors may be contained in the documentation.
[2021-10-23 10:26] VITALS: BP 114/69; PULSE 89; TEMP 36.2; BMI 25.7
--- NOTE | 2021-10-23 12:40 | PCM.WC.PN ---
History of Present Illness Date of Service: 10/23/21 Chief Complaint: Left leg swelling and left anterior leg ulceration, left hallux plantar wound History of Wound: Patient has been treated with Chuyita to both ulceration sites and an offloading pad to the left hallux. Subjective Subjective This is an 86-year-old female who presents today to the wound care center for follow-up of left lower extremity ulceration and left hallux ulceration overlying the interphalangeal joint. She denies any nausea, vomiting, chills, fever, shortness of breath, or other constitutional symptoms. Her health aide staffing assistant is present with her today and continues to help her change her dressings daily and applies an offloading pad to the first metatarsal head plantarly to offload the hallux distally. She also has wounds on her right lower extremity secondary to scratching herself and a wound right lateral malleolus and medial leg. She feels that her wounds are healing and closing over. She denies any complaints today. Objective Data Objective Data Vital Signs: Vital Signs Temp Pulse Resp BP 97.2 F L 89 18 114/69 10/23/21 10:26 10/23/21 10:26 09/25/21 13:31 10/23/21 10: Weight: 70.307 kg Body Mass Index (BMI) 25.7 Physical Exam Const alert, oriented x3 and no apparent distress General Appearance: cooperative and comfortable Eyes General Eye: normal appearance of both eyes Neck General: normal visual inspection Lymph Lymphatic: no lymphadenopathy noted and no lymphedema noted Resp normal respiratory effort Cardio regular rate and regular rhythm Extremity Left Lower Extremity: foot and digits Positive for ROM (Decreased hallux range of motion 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 Left lower extremity ulceration anterior with localized rubor and granular tissue in the wound bed, no malodor, no purulence or other localized signs of infection, adjacent skin is atrophic and thin. Left hallux IPJ some hyperkeratotic tissue noted with no localized erythema, purulent drainage, malodor, red streaking or other localized signs of infection. Right lower extremity ulceration anterior lateral secondary to scratching herself has scabbed over. Site demonstrates no localized erythema, malodor, purulent drainage, or other localized signs of infection. Right distal lateral wound just posterior to the lateral malleolus secondary to venous insufficiency demonstrates granular base with mixed fibrotic tissue and no localized signs of infection. Right medial leg proximal to the medial malleolus secondary to venous insufficiency demonstrates granular base with no localized signs of infection. General Skin Exam: venous stasis Neuro oriented x3 and moves all extremities Motor Exam: strength 5/5 throughout Debridement Note Debridement Note Wound debrided: Left anterior leg wound Laterality: Left Wound Grade/Stage: Russell stage I Type of Debridement: Excisional debridement Anesthesia Used: 4% Lidocaine Solution Depth: Down to and including healthy tissue and in the subcutaneous layer Percentage of wound debrided: 100 Instrument Used: 3mm curette Tissue Removed: Fibrous, devitalized subcutaneous, biofilm, slough Severity: Fat Layer Exposed Amount of bleeding with debridement: Mild Bleeding Controlled with: Compression and gauze Patient tolerated procedure: Patient tolerated procedure well Post-Debridement Measurements and Additional Note: Post-Debridement Measurements/Treatment - Nurse 1 - General Ulcer Assessment Start: 09/25/21 12:46 Freq: Status: Active Protocol: [email or web address] Activity Type Activity Date Activity User E-Sign Co-Sign Detail Recorded Client Recorded Date Recorded By Document 09/25/21 13:31 JAVIER [id number] 09/25/21 13:36 Document 10/02/21 10:07 TORSTEN [id number] 10/02/21 10:21 KR Document 10/09/21 10:53 SC [id number] 10/09/21 10:58 SC Document 10/16/21 10:12 SC [id number] 10/16/21 10:25 SC Document 10/23/21 10:26 AK [id number] 10/23/21 10:29 AK 09/25/21 10/02/21 10/09/21 13:31 10:07 10:53 - Today's Visit Information Type of service Follow-up Visit Follow-up Visit Follow-up Visit (Physician/VOLTAGE INSPECTOR (Physician/VOLTAGE INSPECTOR (Physician/VOLTAGE INSPECTOR ) ) ) Arrival Mode Ambulatory Ambulatory Ambulatory Accompanied by caregiver Patient Identification Verified (Name & Yes Yes ) Patient Requires Transmission-Based No No Precautions Safety Precautions Height and Weight Body Mass Index (BMI) 25.7 25.7 25.7 BMI Classification Overweight Overweight Overweight Vital Signs Temperature (97.8 F-99.1 F) 96.1 F L 97.0 F L 97.4 F L Temperature Source Temporal Temporal Temporal Pulse Rate (60-100) 85 81 74 Pulse Location Monitor Monitor Monitor Respiratory Rate (12-18) 18 Respiratory rate source Observation Blood Pressure (90/60-120/80) 161/81 H 132/74 H 128/74 H Blood Pressure Mean (mm Hg) 107 93 92 Source Monitor Monitor Monitor Position Semi-Fowlers Sitting Sitting Blood Pressure Location Right Arm Left Arm Right Arm History Since Last Visit- (Skip if this is Patient's initial visit) Have you changed medications since your No No No last visit? Any new allergies or adverse reactions No No No Had a fall/change in ADL's that may No No No increase risk of falls Signs or symptoms of abuse and/or No No No neglect since last visit Have you been in the hospital since your No No No last visit? Has dressing in place as prescribed Yes Yes Yes Has compression in place as prescribed No N/A N/A Has offloadiing in place as prescribed N/A N/A N/A Experienced any changes in pain level or No No No management Left Footwear Regular Shoe Regular Shoe Regular Shoe Right Footwear Regular Shoe Regular Shoe Regular Shoe Pain Scale: 0-10 Numeric Is Patient Pain Free? Yes Yes No 10/16/21 10/23/21 10:12 10:26 WC - Today's Visit Information Type of service Follow-up Visit Follow-up Visit (Physician/VOLTAGE INSPECTOR (Physician/VOLTAGE INSPECTOR ) ) Arrival Mode Ambulatory,Cane Ambulatory, Walker Accompanied by aid Patient Identification Verified (Name & Yes Yes ) Patient Requires Transmission-Based No Precautions Safety Precautions NA Height and Weight Body Mass Index (BMI) 25.7 25.7 BMI Classification Overweight Overweight Vital Signs Temperature (97.8 F-99.1 F) 97 F L 97.2 F L Temperature Source Temporal Temporal Pulse Rate (60-100) 87 89 Pulse Location Monitor Respiratory Rate (12-18) Respiratory rate source Blood Pressure (90/60-120/80) 152/63 H 114/69 Blood Pressure Mean (mm Hg) 92 84 Source Monitor Monitor Position Blood Pressure Location History Since Last Visit- (Skip if this is Patient's initial visit) Have you changed medications since your No No last visit? Any new allergies or adverse reactions No No Had a fall/change in ADL's that may No No increase risk of falls Signs or symptoms of abuse and/or No No neglect since last visit Have you been in the hospital since your No No last visit? Has dressing in place as prescribed Yes Yes Has compression in place as prescribed No N/A Has offloadiing in place as prescribed N/A N/A Experienced any changes in pain level or No No management Left Footwear Regular Shoe Regular Shoe Right Footwear Regular Shoe Regular Shoe Pain Scale: 0-10 Numeric Is Patient Pain Free? Yes Yes WC - Nurse 1 - General Ulcer Measurement Start: 09/25/21 12:46 Freq: Status: Active Protocol: Activity Type Activity Date Activity User E-Sign Co-Sign Detail Recorded Client Recorded Date Recorded By Document 09/25/21 13:31 [id number] 09/25/21 13:36 Document 10/02/21 10:07 KR [id number] 10/02/21 10:21 KR Document 10/09/21 10:53 AK [id number] 10/09/21 10:58 AK Document 10/16/21 10:12 AK [id number] 10/16/21 10:25 AK Document 10/23/21 10:26 AK [id number] 10/23/21 10:29 AK 09/25/21 10/02/21 10/09/21 13:31 10:07 10:53 Wound Center Nurse 1 #6 right lower leg -Combined with other wound No -Current Size (cm) - Length 0.8 0.1 0.1 -Current Size (cm) - Width 0.7 0.1 0.1 -Current Size (cm) - Depth 0.1 0.1 0.1 -Total Square Cm 0.56 0.01 0.01 -Photo Taken Yes -Epithelialization Small 1-33% -Tunneling No -Undermining/Tunneling No -Circular Undermining No -Classification - 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) -Exudate Amt Small -Exudate Type Serosanguineous -Wound Margin Flat & Intact Distinct, Outline Attached -Granulation Amt Small (1-33%) -Granulation Quality [place] -Slough/Fibrin Yes -Necrosis Amt Small (1-33%) -Necrotic Tissue Type Adherent Slough -Structure Exposed N/A -Texture (Vangie-wound Skin Appearance) Assessed Assessed, Scarring -Moisture (Vangie-wound Skin Appearance) Assessed,Dry/ Assessed,Dry/ Scaly Scaly -Color (Vangie-wound Skin Appearance) Assessed No Abnormality, Assessed -Temperature (Vangie-wound Skin No Abnormality No Abnormality No Abnormality Appearance) (Pt Warm) (Pt Warm) (Pt Warm) -Tenderness on Palpation (Vangie-wound No No No Skin Appearance) -Ulcer Cleansing Rinsed/ Rinsed/ Rinsed/ Irrigated with Irrigated with Irrigated with Saline Saline Saline -Foul Odor after Cleansing No No No -Anesthetic Used 4% Lidocaine 5% Lidocaine 4% Lidocaine Solution Gel Solution #5 r lateral ankle -Combined with other wound No -Current Size (cm) - Length 0.3 0.2 0.1 -Current Size (cm) - Width 0.4 2 0.1 -Current Size (cm) - Depth 0.1 0.1 0.1 -Total Square Cm 0.12 0.4 0.01 -Photo Taken No -Epithelialization Small 1-33% -Tunneling No -Undermining/Tunneling No -Circular Undermining No -Classification - 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) -Change in Wound Grade/Stage -Exudate Amt Small Small -Exudate Type Serosanguineous Serosanguineous -Wound Margin Flat & Intact Distinct, Outline Attached -Granulation Amt Medium (34-66%) Small (1-33%) -Granulation Quality Red Red -Slough/Fibrin Yes -Necrosis Amt Small (1-33%) Small (1-33%) -Necrotic Tissue Type Adherent Slough Adherent Slough -Structure Exposed N/A -Texture (Vangie-wound Skin Appearance) Assessed Assessed, Scarring -Moisture (Vangie-wound Skin Appearance) Assessed,Dry/ Assessed,Dry/ Scaly Scaly -Color (Vangie-wound Skin Appearance) Assessed No Abnormality, Assessed -Temperature (Vangie-wound Skin No Abnormality No Abnormality Appearance) (Pt Warm) (Pt Warm) -Tenderness on Palpation (Vangie-wound No No Skin Appearance) -Ulcer Cleansing Rinsed/ Rinsed/ Irrigated with Irrigated with Saline Saline -Foul Odor after Cleansing No No -Anesthetic Used 4% Lidocaine 5% Lidocaine Solution Gel #4 l great toe tip -Combined with other wound No -Current Size (cm) - Length 0.5 0.5 -Current Size (cm) - Width 0.6 0.1 -Current Size (cm) - Depth 0.1 0.1 -Total Square Cm 0.30 0.05 -Photo Taken Yes -Epithelialization Small 1-33% -Tunneling No -Undermining/Tunneling No -Circular Undermining No -Classification - 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) -Exudate Amt Small Small -Exudate Type Serosanguineous Serosanguineous -Wound Margin Flat & Intact Distinct, Outline Attached -Granulation Amt Small (1-33%) Small (1-33%) -Granulation Quality Red Red -Slough/Fibrin Yes -Necrosis Amt Small (1-33%) Small (1-33%) -Necrotic Tissue Type Adherent Slough Adherent Slough -Structure Exposed N/A -Texture (Vangie-wound Skin Appearance) Assessed Assessed,Callus ,Scarring -Moisture (Vangie-wound Skin Appearance) Assessed, No Abnormality, Maceration Assessed -Color (Vangie-wound Skin Appearance) Assessed No Abnormality, Assessed -Temperature (Vangie-wound Skin No Abnormality No Abnormality Appearance) (Pt Warm) (Pt Warm) -Tenderness on Palpation (Vangie-wound No No Skin Appearance) -Ulcer Cleansing Rinsed/ Rinsed/ Irrigated with Irrigated with Saline Saline -Foul Odor after Cleansing No No -Anesthetic Used 4% Lidocaine 5% Lidocaine Solution Gel #2 Left Gr Toe -Combined with other wound No -Current Size (cm) - Length 0.6 0.5 0.1 -Current Size (cm) - Width 1.1 0.5 0.1 -Current Size (cm) - Depth 0.1 0.1 0.1 -Total Square Cm 0.66 0.25 0.01 -Photo Taken Yes -Epithelialization None Present -Tunneling No -Undermining/Tunneling No -Circular Undermining No -Change in Wound Grade/Stage -Exudate Amt Small Small None Present -Exudate Type Serosanguineous Serosanguineous -Wound Margin Thickened Distinct, Distinct, Outline Outline Attached Attached -Granulation Amt Small (1-33%) Small (1-33%) -Granulation Quality Red Red -Slough/Fibrin Yes Yes -Necrosis Amt Small (1-33%) Small (1-33%) Large (67-100%) -Necrotic Tissue Type Adherent Slough Adherent Slough Eschar -Structure Exposed N/A -Texture (Vangie-wound Skin Appearance) Assessed,Callus Assessed,Callus Assessed, ,Scarring Localized Edema -Moisture (Vangie-wound Skin Appearance) Assessed,Dry/ No Abnormality, Assessed,Dry/ Scaly Assessed Scaly -Color (Vangie-wound Skin Appearance) Assessed No Abnormality, No Abnormality, Assessed Assessed -Temperature (Vangie-wound Skin No Abnormality No Abnormality No Abnormality Appearance) (Pt Warm) (Pt Warm) (Pt Warm) -Tenderness on Palpation (Vangie-wound No No No Skin Appearance) -Ulcer Cleansing Rinsed/ Rinsed/ Rinsed/ Irrigated with Irrigated with Irrigated with Saline Saline Saline -Foul Odor after Cleansing No No No -Anesthetic Used 4% Lidocaine 5% Lidocaine 4% Lidocaine Solution Gel Solution #3 left anterior leg -Combined with other wound No -Current Size (cm) - Length 1.5 1.4 0.1 -Current Size (cm) - Width 1.0 0.5 0.6 -Current Size (cm) - Depth 0.1 0.1 0.1 -Total Square Cm 1.50 0.70 0.06 -Photo Taken Yes -Epithelialization Small 1-33% -Tunneling No -Undermining/Tunneling No -Circular Undermining No -Change in Wound Grade/Stage -Exudate Amt Small Small Small -Exudate Type Serosanguineous Serosanguineous Serosanguineous -Wound Margin Flat & Intact Distinct, Distinct, Outline Outline Attached Attached -Granulation Amt Medium (34-66%) Medium (34-66%) Small (1-33%) -Granulation Quality Red Red [place] -Slough/Fibrin Yes -Necrosis Amt Small (1-33%) Small (1-33%) Small (1-33%) -Necrotic Tissue Type Adherent Slough Adherent Slough Adherent Slough -Structure Exposed N/A -Texture (Vangie-wound Skin Appearance) Assessed, Assessed, Assessed, Localized Edema Scarring Scarring -Moisture (Vangie-wound Skin Appearance) Assessed,Dry/ No Abnormality, Assessed,Dry/ Scaly Assessed Scaly -Color (Vangie-wound Skin Appearance) Assessed No Abnormality, No Abnormality, Assessed Assessed -Temperature (Vangie-wound Skin No Abnormality No Abnormality No Abnormality Appearance) (Pt Warm) (Pt Warm) (Pt Warm) -Tenderness on Palpation (Vangie-wound No No No Skin Appearance) -Ulcer Cleansing Rinsed/ Rinsed/ Rinsed/ Irrigated with Irrigated with Irrigated with Saline Saline Saline -Foul Odor after Cleansing No No No -Anesthetic Used 4% Lidocaine 5% Lidocaine 4% Lidocaine Solution Gel Solution Lower Limb Edema Present No 10/16/21 10/23/21 10:12 10:26 Wound Center Nurse 1 #6 right lower leg -Combined with other wound No -Current Size (cm) - Length 0.1 -Current Size (cm) - Width 0.1 -Current Size (cm) - Depth 0.1 -Total Square Cm 0.01 -Photo Taken No -Epithelialization -Tunneling No -Undermining/Tunneling No -Circular Undermining No -Classification - Russell Grading ( Diabetic Ulcer) -Exudate Amt None Present -Exudate Type -Wound Margin -Granulation Amt -Granulation Quality Hyper- granulation,N/A -Slough/Fibrin No -Necrosis Amt None Present (0 %) -Necrotic Tissue Type -Structure Exposed N/A -Texture (Vangie-wound Skin Appearance) No Abnormality, Assessed -Moisture (Vangie-wound Skin Appearance) Assessed,Dry/ Scaly -Color (Vangie-wound Skin Appearance) No Abnormality, Assessed -Temperature (Vangie-wound Skin No Abnormality Appearance) (Pt Warm) -Tenderness on Palpation (Vangie-wound No Skin Appearance) -Ulcer Cleansing Rinsed/ Irrigated with Saline -Foul Odor after Cleansing No -Anesthetic Used 4% Lidocaine Solution #5 r lateral ankle -Combined with other wound No -Current Size (cm) - Length 0.1 -Current Size (cm) - Width 0.1 -Current Size (cm) - Depth 0.1 -Total Square Cm 0.01 -Photo Taken No -Epithelialization -Tunneling No -Undermining/Tunneling No -Circular Undermining No -Classification - Russell Grading ( Diabetic Ulcer) -Change in Wound Grade/Stage No -Exudate Amt None Present -Exudate Type -Wound Margin Distinct, Outline Attached -Granulation Amt None Present (0 %) -Granulation Quality -Slough/Fibrin No -Necrosis Amt None Present (0 %) -Necrotic Tissue Type -Structure Exposed N/A -Texture (Vangie-wound Skin Appearance) No Abnormality, Assessed -Moisture (Vangie-wound Skin Appearance) No Abnormality, Dry/Scaly -Color (Vangie-wound Skin Appearance) No Abnormality, Assessed -Temperature (Vangie-wound Skin No Abnormality Appearance) (Pt Warm) -Tenderness on Palpation (Vangie-wound No Skin Appearance) -Ulcer Cleansing Rinsed/ Irrigated with Saline -Foul Odor after Cleansing No -Anesthetic Used 4% Lidocaine Solution #4 l great toe tip -Combined with other wound -Current Size (cm) - Length -Current Size (cm) - Width -Current Size (cm) - Depth -Total Square Cm -Photo Taken -Epithelialization -Tunneling -Undermining/Tunneling -Circular Undermining -Classification - Russell Grading ( Diabetic Ulcer) -Exudate Amt -Exudate Type -Wound Margin -Granulation Amt -Granulation Quality -Slough/Fibrin -Necrosis Amt -Necrotic Tissue Type -Structure Exposed -Texture (Vangie-wound Skin Appearance) -Moisture (Vangie-wound Skin Appearance) -Color (Vangie-wound Skin Appearance) -Temperature (Vangie-wound Skin Appearance) -Tenderness on Palpation (Vangie-wound Skin Appearance) -Ulcer Cleansing -Foul Odor after Cleansing -Anesthetic Used #2 Left Gr Toe -Combined with other wound No No -Current Size (cm) - Length 0.2 0.1 -Current Size (cm) - Width 0.4 0.1 -Current Size (cm) - Depth 0.2 0.1 -Total Square Cm 0.08 0.01 -Photo Taken No No -Epithelialization None Present Medium 34-66% -Tunneling No No -Undermining/Tunneling No No -Circular Undermining No No -Change in Wound Grade/Stage No -Exudate Amt Medium Medium -Exudate Type Serosanguineous Serosanguineous -Wound Margin Distinct, Distinct, Outline Outline Attached Attached -Granulation Amt Small (1-33%) Small (1-33%) -Granulation Quality N/A,[place] N/A -Slough/Fibrin Yes Yes -Necrosis Amt Small (1-33%) Small (1-33%) -Necrotic Tissue Type Adherent Slough Adherent Slough -Structure Exposed N/A N/A -Texture (Vangie-wound Skin Appearance) Assessed,Callus No Abnormality, Assessed,Callus -Moisture (Vangie-wound Skin Appearance) Assessed,Dry/ Assessed,Dry/ Scaly Scaly -Color (Vangie-wound Skin Appearance) No Abnormality, Assessed, Assessed Hemosiderin Staining -Temperature (Vangie-wound Skin No Abnormality No Abnormality Appearance) (Pt Warm) (Pt Warm) -Tenderness on Palpation (Vangie-wound No Yes Skin Appearance) -Ulcer Cleansing Rinsed/ Rinsed/ Irrigated with Irrigated with Saline Saline -Foul Odor after Cleansing No No -Anesthetic Used 4% Lidocaine 4% Lidocaine Solution Solution #3 left anterior leg -Combined with other wound No No -Current Size (cm) - Length 0.8 0.1 -Current Size (cm) - Width 0.5 0.1 -Current Size (cm) - Depth 0.1 0.1 -Total Square Cm 0.40 0.01 -Photo Taken No No -Epithelialization None Present -Tunneling No No -Undermining/Tunneling No No -Circular Undermining No No -Change in Wound Grade/Stage No No -Exudate Amt Medium None Present -Exudate Type Serosanguineous -Wound Margin Distinct, Distinct, Outline Outline Attached Attached -Granulation Amt None Present (0 None Present (0 %) %) -Granulation Quality N/A N/A -Slough/Fibrin Yes No -Necrosis Amt Medium (34-66%) None Present (0 %) -Necrotic Tissue Type Adherent Slough -Structure Exposed N/A N/A -Texture (Vangie-wound Skin Appearance) No Abnormality, No Abnormality, Assessed Assessed -Moisture (Vangie-wound Skin Appearance) No Abnormality, Assessed,Dry/ Assessed Scaly -Color (Vangie-wound Skin Appearance) No Abnormality, Assessed, Assessed Hemosiderin Staining -Temperature (Vangie-wound Skin No Abnormality No Abnormality Appearance) (Pt Warm) (Pt Warm) -Tenderness on Palpation (Vangie-wound No Yes Skin Appearance) -Ulcer Cleansing Rinsed/ Rinsed/ Irrigated with Irrigated with Saline Saline -Foul Odor after Cleansing No No -Anesthetic Used 4% Lidocaine 4% Lidocaine Solution Solution Lower Limb Edema Present No WC - Nurse 2 - General Ulcer CM Notes Start: 09/25/21 12:46 Freq: Status: Active Protocol: Activity Type Activity Date Activity User E-Sign Co-Sign Detail Recorded Client Recorded Date Recorded By Document 09/25/21 11:21 PL [id number] 09/26/21 07:27 PL Document 10/02/21 13:28 PL [id number] 10/02/21 13:32 PL Document 10/09/21 15:38 PL [id number] 10/09/21 15:45 PL Document 10/16/21 13:32 PL [id number] 10/16/21 13:33 PL Document 10/23/21 11:33 PL Desktop 10/23/21 11:35 PL 09/25/21 10/02/21 10/09/21 11:21 13:28 15:38 Wound Center Nurse 2 #6 right lower leg -Time 10:57 10:44 11:28 -Correct Patient Yes Yes Yes -Correct Side, Site, Position Yes Yes Yes -Correct Procedure Yes Yes Yes -Procedure Performed Yes Yes Yes -Type of Procedure Debridement Debridement Debridement -Clinical Debridement Subcutaneous Subcutaneous Subcutaneous -Tissue Removed Subcutaneous Subcutaneous Subcutaneous -Post Debridement (cm) - Length 0.8 0.1 0.1 -Post Debridement (cm) - Width 0.7 0.1 0.1 -Post Debridement (cm) - Depth 0.1 0.1 0.1 -Total Square (Post) (cm) 0.56 0.01 0.01 -Area of Debridement (cm) - Length 0.8 0.1 0.1 -Area of Debridement (cm) - Width 0.7 0.1 0.1 -Total Square (Area) (cm) 0.56 0.01 0.01 -Tunneling No No No -Undermining/Tunneling No No No -Circular Undermining No No No -Wound/Ulcer Outcome Not Healed Not Healed Not Healed -Ulcer Cleansing Rinsed/ Rinsed/ Rinsed/ Irrigated with Irrigated with Irrigated with Saline Saline Saline -Foul Odor after Cleansing No No No -Bioengineered Tissue No No No -Bleeding Controlled with Pressure Pressure Pressure -Treatment Response Procedure Procedure Procedure Tolerated Well Tolerated Well Tolerated Well -Debridement - Subq, 1st 20sq cm No No No #5 r lateral ankle -Time 10:57 10:44 11:28 -Correct Patient Yes Yes Yes -Correct Side, Site, Position Yes Yes Yes -Correct Procedure Yes Yes Yes -Procedure Performed Yes Yes Yes -Type of Procedure Debridement Debridement Debridement -Clinical Debridement Subcutaneous Subcutaneous Subcutaneous -Tissue Removed Subcutaneous Subcutaneous Subcutaneous -Post Debridement (cm) - Length 0.3 0.2 0.1 -Post Debridement (cm) - Width 0.4 2 0.1 -Post Debridement (cm) - Depth 0.1 0.1 0.1 -Total Square (Post) (cm) 0.12 0.4 0.01 -Area of Debridement (cm) - Length 0.3 0.2 0.1 -Area of Debridement (cm) - Width 0.4 2 0.1 -Total Square (Area) (cm) 0.12 0.4 0.01 -Tunneling No No No -Undermining/Tunneling No No No -Circular Undermining No No No -Wound/Ulcer Outcome Not Healed Not Healed Not Healed -Ulcer Cleansing Rinsed/ Rinsed/ Rinsed/ Irrigated with Irrigated with Irrigated with Saline Saline Saline -Foul Odor after Cleansing No No No -Bioengineered Tissue No No No -Bleeding Controlled with Pressure Pressure Pressure -Treatment Response Procedure Procedure Procedure Tolerated Well Tolerated Well Tolerated Well -Debridement - Subq, 1st 20sq cm No No No #4 l great toe tip -Time 10:57 10:44 -Correct Patient Yes Yes -Correct Side, Site, Position Yes Yes -Correct Procedure Yes Yes -Procedure Performed Yes Yes No -Type of Procedure Debridement Debridement -Clinical Debridement Subcutaneous Subcutaneous -Tissue Removed Subcutaneous Subcutaneous -Post Debridement (cm) - Length 0.5 0.5 -Post Debridement (cm) - Width 0.6 0.1 -Post Debridement (cm) - Depth 0.1 0.1 -Total Square (Post) (cm) 0.30 0.05 -Area of Debridement (cm) - Length 0.5 0.5 -Area of Debridement (cm) - Width 0.6 0.1 -Total Square (Area) (cm) 0.30 0.05 -Tunneling No No -Undermining/Tunneling No No -Circular Undermining No No -Wound/Ulcer Outcome Not Healed Not Healed Healed- Epithelialized -Ulcer Cleansing Rinsed/ Rinsed/ Irrigated with Irrigated with Saline Saline -Foul Odor after Cleansing No No -Bioengineered Tissue No No -Bleeding Controlled with Pressure Pressure -Treatment Response Procedure Procedure Tolerated Well Tolerated Well -Debridement - Subq, 1st 20sq cm No No #2 Left Gr Toe -Time 10:57 10:44 11:28 -Correct Patient Yes Yes Yes -Correct Side, Site, Position Yes Yes Yes -Correct Procedure Yes Yes Yes -Procedure Performed Yes Yes Yes -Type of Procedure Debridement Debridement Debridement -Clinical Debridement Subcutaneous Subcutaneous Subcutaneous -Tissue Removed Subcutaneous Subcutaneous Subcutaneous -Post Debridement (cm) - Length 0.6 0.5 0.1 -Post Debridement (cm) - Width 1.1 0.5 0.1 -Post Debridement (cm) - Depth 0.1 0.1 0.1 -Total Square (Post) (cm) 0.66 0.25 0.01 -Area of Debridement (cm) - Length 0.6 0.5 0.1 -Area of Debridement (cm) - Width 1.1 0.5 0.1 -Total Square (Area) (cm) 0.66 0.25 0.01 -Tunneling No No No -Undermining/Tunneling No No No -Circular Undermining No No No -Wound/Ulcer Outcome Not Healed Not Healed Not Healed -Ulcer Cleansing Rinsed/ Rinsed/ Rinsed/ Irrigated with Irrigated with Irrigated with Saline Saline Saline -Foul Odor after Cleansing No No No -Bioengineered Tissue No No No -Bleeding Controlled with Pressure Pressure Pressure -Treatment Response Procedure Procedure Procedure Tolerated Well Tolerated Well Tolerated Well -Debridement - Subq, 1st 20sq cm No No No #3 left anterior leg -Time 10:57 10:44 11:28 -Correct Patient Yes Yes Yes -Correct Side, Site, Position Yes Yes Yes -Correct Procedure Yes Yes Yes -Procedure Performed Yes Yes Yes -Type of Procedure Debridement Debridement Debridement -Clinical Debridement Subcutaneous Subcutaneous Subcutaneous -Tissue Removed Subcutaneous Subcutaneous Subcutaneous -Post Debridement (cm) - Length 1.5 1.4 0.1 -Post Debridement (cm) - Width 1.0 0.5 0.6 -Post Debridement (cm) - Depth 0.1 0.1 0.1 -Total Square (Post) (cm) 1.50 0.70 0.06 -Area of Debridement (cm) - Length 1.5 1.4 0.1 -Area of Debridement (cm) - Width 1.0 0.5 0.6 -Total Square (Area) (cm) 1.50 0.70 0.06 -Tunneling No No No -Undermining/Tunneling No No No -Circular Undermining No No No -Wound/Ulcer Outcome Not Healed Not Healed Not Healed -Ulcer Cleansing Rinsed/ Rinsed/ Rinsed/ Irrigated with Irrigated with Irrigated with Saline Saline Saline -Foul Odor after Cleansing No No No -Bioengineered Tissue No No No -Bleeding Controlled with Pressure Pressure Pressure -Treatment Response Procedure Procedure Procedure Tolerated Well Tolerated Well Tolerated Well -Debridement - Subq, 20sq cm Yes Yes Yes Pain Scale: 0-10 Numeric Is Patient Pain Free? Yes Yes Yes 10/16/21 10/23/21 13:32 11:33 Wound Center Nurse 2 #6 right lower leg -Time -Correct Patient -Correct Side, Site, Position -Correct Procedure -Procedure Performed No -Type of Procedure -Clinical Debridement -Tissue Removed -Post Debridement (cm) - Length -Post Debridement (cm) - Width -Post Debridement (cm) - Depth -Total Square (Post) (cm) -Area of Debridement (cm) - Length -Area of Debridement (cm) - Width -Total Square (Area) (cm) -Tunneling -Undermining/Tunneling -Circular Undermining -Wound/Ulcer Outcome Healed- Epithelialized -Ulcer Cleansing -Foul Odor after Cleansing -Bioengineered Tissue -Bleeding Controlled with -Treatment Response -Debridement - Subq, 20sq cm #5 r lateral ankle -Time -Correct Patient -Correct Side, Site, Position -Correct Procedure -Procedure Performed No -Type of Procedure -Clinical Debridement -Tissue Removed -Post Debridement (cm) - Length -Post Debridement (cm) - Width -Post Debridement (cm) - Depth -Total Square (Post) (cm) -Area of Debridement (cm) - Length -Area of Debridement (cm) - Width -Total Square (Area) (cm) -Tunneling -Undermining/Tunneling -Circular Undermining -Wound/Ulcer Outcome Healed- Epithelialized -Ulcer Cleansing -Foul Odor after Cleansing -Bioengineered Tissue -Bleeding Controlled with -Treatment Response -Debridement - Subq, 20sq cm #4 l great toe tip -Time -Correct Patient -Correct Side, Site, Position -Correct Procedure -Procedure Performed -Type of Procedure -Clinical Debridement -Tissue Removed -Post Debridement (cm) - Length -Post Debridement (cm) - Width -Post Debridement (cm) - Depth -Total Square (Post) (cm) -Area of Debridement (cm) - Length -Area of Debridement (cm) - Width -Total Square (Area) (cm) -Tunneling -Undermining/Tunneling -Circular Undermining -Wound/Ulcer Outcome -Ulcer Cleansing -Foul Odor after Cleansing -Bioengineered Tissue -Bleeding Controlled with -Treatment Response -Debridement - Subq, 20sq cm #2 Left Gr Toe -Time 10:51 -Correct Patient Yes -Correct Side, Site, Position Yes -Correct Procedure Yes -Procedure Performed Yes -Type of Procedure Debridement -Clinical Debridement Subcutaneous -Tissue Removed Subcutaneous -Post Debridement (cm) - Length 0.1 -Post Debridement (cm) - Width 0.1 -Post Debridement (cm) - Depth 0.1 -Total Square (Post) (cm) 0.01 -Area of Debridement (cm) - Length 0.1 -Area of Debridement (cm) - Width 0.1 -Total Square (Area) (cm) 0.01 -Tunneling No -Undermining/Tunneling No -Circular Undermining No -Wound/Ulcer Outcome Not Healed -Ulcer Cleansing Rinsed/ Irrigated with Saline -Foul Odor after Cleansing No -Bioengineered Tissue No -Bleeding Controlled with Pressure -Treatment Response Procedure Tolerated Well -Debridement - Subq, 20sq cm No #3 left anterior leg -Time 10:56 10:51 -Correct Patient Yes Yes -Correct Side, Site, Position Yes Yes -Correct Procedure Yes Yes -Procedure Performed Yes Yes -Type of Procedure Debridement Debridement -Clinical Debridement Subcutaneous Subcutaneous -Tissue Removed Subcutaneous Subcutaneous -Post Debridement (cm) - Length 0.8 1.0 -Post Debridement (cm) - Width 0.5 0.3 -Post Debridement (cm) - Depth 0.1 0.1 -Total Square (Post) (cm) 0.40 0.30 -Area of Debridement (cm) - Length 0.8 1.0 -Area of Debridement (cm) - Width 0.5 0.3 -Total Square (Area) (cm) 0.40 0.30 -Tunneling No No -Undermining/Tunneling No No -Circular Undermining No No -Wound/Ulcer Outcome Not Healed Not Healed -Ulcer Cleansing Rinsed/ Rinsed/ Irrigated with Irrigated with Saline Saline -Foul Odor after Cleansing No No -Bioengineered Tissue No No -Bleeding Controlled with Pressure Pressure -Treatment Response Procedure Procedure Tolerated Well Tolerated Well -Debridement - Subq, 1st 20sq cm Yes Yes Pain Scale: 0-10 Numeric Is Patient Pain Free? Yes Yes WC - Nurse 3 - General Ulcer D/C NN Start: 09/25/21 12:46 Freq: Status: Active Protocol: Activity Type Activity Date Activity User E-Sign Co-Sign Detail Recorded Client Recorded Date Recorded By Document 09/25/21 15:31 AK [id number] 09/25/21 15:35 AK Document 10/09/21 12:05 KR [id number] 10/09/21 12:07 KR Document 10/16/21 11:25 [id number] 10/16/21 11:26 JF 09/25/21 10/09/21 10/16/21 15:31 12:05 11:25 Wound Care Nurse 3 #6 right lower leg -Ulcer Cleansing Rinsed/ Rinsed/ Rinsed/ Irrigated with Irrigated with Irrigated with Saline Saline Saline -Foul Odor after Cleansing No No -Negative Pressure Wound Therapy N/A -Primary Dressing Applied Promogran Promogran NonAdherent Chuyita Matter Chuyita Matter Contact Layer, Promogran Chuyita Matter -Primary Dressing Covered/Secured with Dry Gauze, Dry Gauze,Dry Dry Gauze & Secured with Gauze & Roll Roll Gauze, Tape Gauze,Secured Secured with with Tape Tape -Promogran Chuyita Matter 1 1 1 #5 r lateral ankle -Ulcer Cleansing Rinsed/ Rinsed/ Rinsed/ Irrigated with Irrigated with Irrigated with Saline Saline Saline -Foul Odor after Cleansing No -Primary Dressing Applied Promogran NonAdherent Chuyita Matter Contact Layer, Promogran Chuyita Matter -Primary Dressing Covered/Secured with Dry Gauze, Dry Gauze, Dry Gauze, Secured with Secured with Secured with Tape Tape Tape -Promogran Chuyita Matter 0 0 #4 l great toe tip -Ulcer Cleansing Rinsed/ Rinsed/ Irrigated with Irrigated with Saline Saline -Foul Odor after Cleansing No -Negative Pressure Wound Therapy N/A -Primary Dressing Applied Promogran Promogran Chuyita Matter Chuyita Matter -Primary Dressing Covered/Secured with Dry Gauze, Secured with Secured with Tape Tape -Promogran Chuyita Matter 0 1 #2 Left Gr Toe -Ulcer Cleansing Rinsed/ Rinsed/ Rinsed/ Irrigated with Irrigated with Irrigated with Saline Saline Saline -Foul Odor after Cleansing No -Negative Pressure Wound Therapy N/A Discontinue -Primary Dressing Applied Promogran NonAdherent Chuyita Matter Contact Layer, Promogran Chuyita Matter -Primary Dressing Covered/Secured with Dry Gauze, Dry Gauze, Dry Gauze, Secured with Secured with Secured with Tape Tape Tape -Promogran Chuyita Matter 0 0 #3 left anterior leg -Ulcer Cleansing Rinsed/ Rinsed/ Rinsed/ Irrigated with Irrigated with Irrigated with Saline Saline Saline -Foul Odor after Cleansing No No -Negative Pressure Wound Therapy N/A -Primary Dressing Applied Promogran Promogran Chuyita Matter Chuyita Matter -Primary Dressing Covered/Secured with Dry Gauze, Dry Gauze, Dry Gauze, Secured with Secured with Secured with Tape Tape Tape -Promogran Chuyita Matter 0 0 Right -Tubular Bandage Double Layer Double Layer -Size of Tubigrip Used Size E Size E -Size E ($) 2 0 Left -Lotion applied to leg before No compression wrap -Tubular Bandage Double Layer Double Layer -Size of Tubigrip Used Size D Size E -Size D ($) 2 -Size E ($) 0 -Other own Pain Scale: 0-10 Numeric Is Patient Pain Free? Yes Yes Yes WC - Visit Discharge Discharge Condition Stable Stable Stable Ambulatory Status Ambulatory,Cane Ambulatory,Cane Transportation Private Auto Private Auto Private Auto Accompanied by caregiver caregiver Medication Reconcilliation completed & Yes Yes provided to patient/care provider Clinical Summary of Care Provided Yes Yes Additional Wound Wound debrided: Left plantar hallux Laterality: Left Wound Grade/Stage: Russell grade 1 Depth: Down to and including healthy tissue and in the subcutaneous layer Percentage of wound debrided: 100 Instrument Used: - (#313 blade) Tissue Removed: Fibrous, devitalized subcutaneous, biofilm, slough Severity: Fat Layer Exposed Amount of bleeding with debridement: Mild Bleeding Controlled with: Pressure Patient tolerated procedure: Patient tolerated procedure well Additional Wound Wound debrided: Right lateral ankle Laterality: Right Wound Grade/Stage: Russell stage I Type of Debridement: Excisional debridement Anesthesia Used: 4% Lidocaine Solution Depth: Down to and including healthy tissue and in the subcutaneous layer Percentage of wound debrided: 100 Instrument Used: - (1 mm curette) Tissue Removed: Fibrous, devitalized subcutaneous, biofilm, slough Severity: Fat Layer Exposed Amount of bleeding with debridement: Mild Bleeding Controlled with: Pressure Patient tolerated procedure: Patient tolerated procedure well Assessment/Plan Assessment/Plan (1) Non-pressure 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: CODE(S): L97.522 - Non-pressure 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 (2) Non-pressure chronic ulcer of left calf with fat layer exposed: CODE(S): L97.222 - Non-pressure chronic ulcer of left calf with fat layer exposed (3) Varicose veins of left lower extremity with ulcer of calf: CODE(S): I83.022 - Varicose veins of left lower extremity with ulcer of calf (4) Chronic venous insufficiency: (5) Leg edema, left: CODE(S): R60.0 - Localized edema (6) COPD (chronic obstructive pulmonary disease): CODE(S): J44.9 - Chronic obstructive pulmonary disease, unspecified (7) Spinal stenosis: CODE(S): M48.00 - Spinal stenosis, site unspecified (8) Back pain: CODE(S): M54.9 - Dorsalgia, unspecified (9) Edema leg: CODE(S): R60.0 - Localized edema (10) Non-pressure chronic ulcer of right calf with fat layer exposed: CODE(S): L97.212 - Non-pressure chronic ulcer of right calf with fat layer exposed (11) Non-pressure chronic ulcer of right ankle with fat layer exposed: CODE(S): L97.312 - Non-pressure chronic ulcer of right ankle with fat layer exposed PLAN: This is an 86-year-old female with history of COPD and spinal stenosis who presents to the wound care clinic for follow-up of left lower extremity anterior ulceration secondary to chronic venous insufficiency. She also has a left medial hallux IPJ ulceration secondary to decreased range of motion at the first metatarsophalangeal joint due to end-stage arthritis. She had venous studies performed confirming reflux of the left great saphenous vein with no deep venous thrombosis bilaterally. Right lateral leg ulceration is healed today. Right medial leg ulceration is stable with scab covering with no localized signs of infection. 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 Ulceration site left lower extremity, Russell stage I, was debrided sharply with a 3 mm curette. Ulceration site is continuing to show progression and decreasing in size. Debridement performed to remove fibrous, devitalized tissue, biofilm, and slough. Ulceration site demonstrates no localized signs of infection. I debrided the left hallux medial IPJ hyperkeratotic tissue with a #313 blade removing all nonviable tissue, devitalized subcutaneous, biofilm, and slough of this Russell stage I ulceration. Ulceration site demonstrates no localized signs of infection. Left hallux ulceration site is showing progression and decreasing in size overall with less callus buildup. This wound is nearing closure. Patient continues to offload the first metatarsophalangeal joint and hallux with an offloading pad to the plantar first metatarsal head. 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 I discussed continuing to wear the surgical shoe to the left foot to prevent the ends of her toes from hitting in her shoe. Right lateral ankle wound and medial ankle wound continues to show progression and is nearing closure. Ulceration demonstrates no localized signs of infection. Ulceration sites dressed with Chuyita dry sterile dressing and double Tubigrip applied to the bilateral lower extremities. Hallux ulceration site was dressed with Chuyita, 2 x 2 gauze, cotton padding, Coban and an offloading pad to the first metatarsophalangeal joint. I discussed continued offloading of the hallux ulceration site with felt pads, surgical shoe, or foam inserts. She has ordered protective shoes and inserts. We will await arrival of protective shoes with inserts. Patient to continue to elevate lower extremities in addition to wearing her Tubigrip compression stockings bilateral to aid in edema control. I discussed with her that she is to continue to elevate her feet at times of rest and dorsiflex and plantarflex her foot a few times to aid in venous return by utilization of her calf muscle. Patient voices understanding of this. I reviewed and discussed his case today. Debridement was performed today as noted in the clinical panel to all of the ulcer sites. The following work up and care recommendations were made: Dressing: Chuyita anterior left leg and right leg; Chuyita right ankle lateral and medial; Chuyita left hallux, 2 x 2 gauze, cotton, Coban and an offloading pad to the first metatarsophalangeal joint Wash: Soap and water Tissue growth optimization: Chuyita Offload: Offloading dressing of the first metatarsophalangeal joint and left hallux Vascular: Vascular status intact with palpable pedal pulses Edema: Elevation of the left lower extremity and right lower extremity control to control edema. Patient instructed to wear double Tubigrip stockings Infection: No localized signs of infection Pain: May take [id number] Tylenol, safe oral anti-inflammatory use discussed. Host factors: Chronic venous insufficiency I answered all the patient's questions. To return to the wound healing center in 1 week or call sooner if the patient has any questions or concerns. Note: [employer] speech recognition linotype machinist apprentice software was used to create portions of this document. Sound-alike and misspelled words, as well as other linotype machinist apprentice errors may be contained in the documentation.
== END 2021-10-23 23:59 | disposition home or self-care (01) ==
LOC: WC 10:00
PROVIDERS: PCP Family Medicine; Visit Provider Student in an Organized Health Care Education/Training Program
DX: L97.212 Non-pressure chronic ulcer of right calf with fat layer exposed (principal); L97.312 Non-pressure chronic ulcer of right ankle with fat layer exposed; L97.522 Non-pressure 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; L97.222 Non-pressure chronic ulcer of left calf with fat layer exposed; I83.022 Varicose veins of left lower extremity with ulcer of calf; J44.9 Chronic obstructive pulmonary disease, unspecified; M48.00 Spinal stenosis, site unspecified; I87.2 Venous insufficiency (chronic) (peripheral); R60.0 Localized edema; M54.9 Dorsalgia, unspecified
CPT/HCPCS: 11042

== ENCOUNTER 2021-11-20 10:00 | Outpatient (RCR) | payer MEDICARE, OTHER, SELFPAY ==
[2021-10-24 00:37] VITALS: BP 114/69; PULSE 89; RESP 18; TEMP 36.2; BMI 25.7
[2021-10-30 10:15] VITALS: BP 131/78; PULSE 66; TEMP 35.8; BMI 25.7
--- NOTE | 2021-10-30 11:49 | PCM.WC.PN ---
History of Present Illness Date of Service: 10/30/21 Chief Complaint: Left leg swelling and left anterior leg ulceration, left hallux plantar wound History of Wound: Patient has been treated with Chuyita to both ulceration sites and an offloading pad to the left hallux. Subjective Subjective This is an 86-year-old female who presents for follow-up to the wound care center for left lower extremity ulceration, left hallux ulceration, and right lateral ankle ulceration. She denies any constitutional symptoms. She is present with her surgical physician assistant today who is continuing to help her change her dressings daily consisting of Chuyita to the leg ulcer sites and Chuyita with an offloading pad to the hallux. She has no other complaints today. Objective Data Objective Data Vital Signs: Vital Signs Temp Pulse Resp BP 96.4 F L 66 18 131/78 H 10/30/21 10:15 10/30/21 10:15 10/24/21 00:37 10/30/21 10:15 Weight: 70.307 kg Body Mass Index (BMI) 25.7 Physical Exam Const alert, oriented x3 and no apparent distress General Appearance: cooperative and comfortable HEENT normocephalic Eyes General Eye: normal appearance of both eyes Neck General: normal visual inspection Lymph Lymphatic: no lymphadenopathy noted and no lymphedema noted Resp normal respiratory effort Cardio regular rate and regular rhythm Extremity normal capillary refill Left Lower Extremity: foot and digits Positive for ROM (Decreased hallux range of motion secondary to 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 Left lower extremity ulceration anterior with localized rubor and granular tissue to the wound bed. No localized signs of infection. Left hallux sub-IPJ ulceration demonstrates healthy granular base with surrounding hyperkeratotic tissue. No localized signs of infection to the left hallux. Right lower extremity lateral ankle ulceration demonstrates a healthy granular base with yellow crusting overlying and about the ulcerative site. Ulcerative site demonstrates no localized signs of infection. Neuro oriented x3 and moves all extremities Motor Exam: strength 5/5 throughout Debridement Note Debridement Note Wound debrided: Left anterior leg wound Laterality: Left Wound Grade/Stage: Russell stage I Type of Debridement: Excisional debridement Anesthesia Used: 4% Lidocaine Solution Depth: Down to and including healthy tissue and in the subcutaneous layer Percentage of wound debrided: 100 Instrument Used: - (1 mm curette) Tissue Removed: Fibrous, devitalized subcutaneous, biofilm, slough Severity: Fat Layer Exposed Amount of bleeding with debridement: Mild Bleeding Controlled with: Compression and gauze Patient tolerated procedure: Patient tolerated procedure well Post-Debridement Measurements and Additional Note: Post-Debridement Measurements/Treatment BRAN - Nurse 1 - General Ulcer Assessment Start: 10/30/21 10:15 Freq: Status: Active Protocol: ALEX Activity Type Activity Date Activity User E-Sign Co-Sign Detail Recorded Client Recorded Date Recorded By Document 10/30/21 10:15 TORSTEN [id number] 10/30/21 10:23 TORSTEN 10/30/21 10:15 BRAN Claudio Today's Visit Information Type of service Follow-up Visit (Physician/AGRICULTURAL INSPECTOR ) Arrival Mode Ambulatory,Cane Patient Identification Verified (Name & Yes ) Height and Weight Body Mass Index (BMI) 25.7 BMI Classification Overweight Vital Signs Temperature (97.8 F-99.1 F) 96.4 F L Temperature Source Temporal Pulse Rate (60-100) 66 Pulse Location Monitor Blood Pressure (90/60-120/80) 131/78 H Blood Pressure Mean (mm Hg) 95 Source Monitor Position Semi-Fowlers Blood Pressure Location Left Arm History Since Last Visit- (Skip if this is Patient's initial visit) Have you changed medications since your No last visit? Any new allergies or adverse reactions No Had a fall/change in ADL's that may No increase risk of falls Signs or symptoms of abuse and/or No neglect since last visit Have you been in the hospital since your No last visit? Has dressing in place as prescribed Yes Has compression in place as prescribed Yes Has offloadiing in place as prescribed N/A Experienced any changes in pain level or No management Left Footwear Regular Shoe Right Footwear Regular Shoe Pain Scale: 0-10 Numeric Is Patient Pain Free? Yes BRAN Claudio Nurse 1 - General Ulcer Measurement Start: 10/30/21 10:15 Freq: Status: Active Protocol: Activity Type Activity Date Activity User E-Sign Co-Sign Detail Recorded Client Recorded Date Recorded By Document 10/30/21 10:15 TORSTEN [id number] 10/30/21 10:23 KR 10/30/21 10:15 Wound Center Nurse 1 #2 Left Gr Toe -Current Size (cm) - Length 0.3 -Current Size (cm) - Width 0.2 -Current Size (cm) - Depth 0.1 -Total Square Cm 0.06 -Exudate Amt None Present -Wound Margin Distinct, Outline Attached -Granulation Amt Small (1-33%) -Granulation Quality Red -Necrosis Amt None Present (0 %) -Texture (Vangie-wound Skin Appearance) Assessed,Callus ,Scarring -Moisture (Vangie-wound Skin Appearance) Assessed,Dry/ Scaly -Color (Vangie-wound Skin Appearance) No Abnormality, Assessed -Temperature (Vangie-wound Skin No Abnormality Appearance) (Pt Warm) -Tenderness on Palpation (Vangie-wound No Skin Appearance) -Ulcer Cleansing Rinsed/ Irrigated with Saline -Foul Odor after Cleansing No -Anesthetic Used 5% Lidocaine Gel #3 left anterior leg -Current Size (cm) - Length 0.4 -Current Size (cm) - Width 0.4 -Current Size (cm) - Depth 0.1 -Total Square Cm 0.16 -Exudate Amt None Present -Wound Margin Distinct, Outline Attached -Granulation Amt None Present (0 %) -Necrosis Amt None Present (0 %) -Texture (Vangie-wound Skin Appearance) Assessed, Scarring -Moisture (Vangie-wound Skin Appearance) Assessed,Dry/ Scaly -Color (Vangie-wound Skin Appearance) No Abnormality, Assessed -Temperature (Vangie-wound Skin No Abnormality Appearance) (Pt Warm) -Tenderness on Palpation (Vangie-wound No Skin Appearance) -Ulcer Cleansing Rinsed/ Irrigated with Saline -Foul Odor after Cleansing No -Anesthetic Used 5% Lidocaine Gel WC - Nurse 3 - General Ulcer D/C NN Start: 10/30/21 10:15 Freq: Status: Active Protocol: Activity Type Activity Date Activity User E-Sign Co-Sign Detail Recorded Client Recorded Date Recorded By Document 10/30/21 10:49 MAC [id number] 10/30/21 10:51 MAC 10/30/21 10:49 Wound Care Nurse 3 #2 Left Gr Toe -Ulcer Cleansing Rinsed/ Irrigated with Saline -Foul Odor after Cleansing No -Negative Pressure Wound Therapy N/A -Primary Dressing Applied Promogran Chuyita Matter -Primary Dressing Covered/Secured with Dry Gauze, Secured with Tape -Promogran Chuyita Matter 1 #3 left anterior leg -Ulcer Cleansing Rinsed/ Irrigated with Saline -Foul Odor after Cleansing No -Negative Pressure Wound Therapy N/A -Primary Dressing Applied Promogran Chuyita Matter -Primary Dressing Covered/Secured with Dry Gauze, Secured with Tape -Promogran Chuyita Matter 0 Pain Scale: 0-10 Numeric Is Patient Pain Free? Yes WC - Visit Discharge Discharge Condition Stable Ambulatory Status Ambulatory Transportation Private Auto Accompanied by aid Medication Reconcilliation completed & Yes provided to patient/care provider Clinical Summary of Care Provided Yes Additional Wound Wound debrided: Left plantar hallux Laterality: Left Wound Grade/Stage: Russell stage I Type of Debridement: Excisional debridement Anesthesia Used: 4% Lidocaine Solution Depth: Down to and including healthy tissue and in the subcutaneous layer Percentage of wound debrided: 100 Instrument Used: - (#313 blade) Tissue Removed: Fibrous, devitalized subcutaneous, biofilm, slough Severity: Fat Layer Exposed Amount of bleeding with debridement: Mild Bleeding Controlled with: Compression and gauze Patient tolerated procedure: Patient tolerated procedure well Additional Wound Wound debrided: Right lateral ankle Laterality: Right Wound Grade/Stage: Russell stage I Type of Debridement: Excisional debridement Anesthesia Used: 4% Lidocaine Solution Depth: Down to and including healthy tissue and in the subcutaneous layer Percentage of wound debrided: 100 Instrument Used: - (1 mm curette) Tissue Removed: Fibrous, devitalized subcutaneous, biofilm, slough Severity: Fat Layer Exposed Amount of bleeding with debridement: Mild Bleeding Controlled with: Compression and gauze Patient tolerated procedure: Patient tolerated procedure well Assessment/Plan Assessment/Plan (1) Non-pressure chronic ulcer of left calf with fat layer exposed: CODE(S): L97.222 - Non-pressure chronic ulcer of left calf with fat layer exposed (2) Non-pressure chronic ulcer of right calf with fat layer exposed: CODE(S): L97.212 - Non-pressure chronic ulcer of right calf with fat layer exposed (3) Non-pressure chronic ulcer of right ankle with fat layer exposed: CODE(S): L97.312 - Non-pressure chronic ulcer of right ankle with fat layer exposed (4) Non-pressure 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: CODE(S): L97.522 - Non-pressure 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 (5) Varicose veins of left lower extremity with ulcer of calf: CODE(S): I83.022 - Varicose veins of left lower extremity with ulcer of calf (6) Chronic venous insufficiency: (7) Leg edema, left: CODE(S): R60.0 - Localized edema (8) COPD (chronic obstructive pulmonary disease): CODE(S): J44.9 - Chronic obstructive pulmonary disease, unspecified (9) Edema leg: CODE(S): R60.0 - Localized edema (10) Spinal stenosis: CODE(S): M48.00 - Spinal stenosis, site unspecified (11) Back pain: CODE(S): M54.9 - Dorsalgia, unspecified PLAN: This is an 86-year-old female with history of COPD and spinal stenosis who presents to the wound care clinic for follow-up of left lower extremity anterior ulceration secondary to chronic venous insufficiency. She also has a left medial hallux IPJ ulceration secondary to decreased range of motion at the first metatarsophalangeal joint due to end-stage arthritis. She had venous studies performed confirming reflux of the left great saphenous vein with no deep venous thrombosis bilaterally. Right lateral leg and medial leg ulcerations remain healed. 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 Ulceration site left lower extremity, Russell stage I, was debrided sharply with a 3 mm curette. Ulceration site is continuing to show progression with continued decrease in size. Debridement performed to remove fibrous, devitalized tissue, biofilm, and slough. Ulceration site demonstrates no localized signs of infection. I debrided the left hallux medial IPJ hyperkeratotic tissue with a #313 blade removing all nonviable tissue, devitalized subcutaneous, biofilm, and slough of this Russell stage I ulceration. Ulceration site demonstrates no localized signs of infection. Left hallux ulceration site is showing progression and decreasing in size overall with less callus buildup. This wound is nearing closure. Patient continues to offload the first metatarsophalangeal joint and hallux with an offloading pad to the plantar first metatarsal head. Patient and bone worker to continue offloading the site as this is zepeda to decreasing pressure and healing this ulceration on the plantar hallux. I discussed continuing to wear the surgical shoe to the left foot to prevent the ends of her toes from hitting in her shoe. Right lateral ankle wound continues to show progression and is nearing closure. Ulceration demonstrates no localized signs of infection. Ulceration sites dressed with Chuyita, dry sterile dressing, and double Tubigrip applied to the bilateral lower extremities. Hallux ulceration site was dressed with Hcuyita, 2 x 2 gauze, cotton padding, Coban and an offloading pad to the first metatarsophalangeal joint. I discussed continued offloading of the hallux ulceration site with felt pads, surgical shoe, or foam inserts. She has ordered protective shoes and inserts and is awaiting arrival of shoes. Patient to continue to elevate lower extremities in addition to wearing her Tubigrip compression stockings bilateral to aid in edema control. I discussed with her that she is to continue to elevate her feet at times of rest and dorsiflex and plantarflex her foot a few times to aid in venous return by utilization of her calf muscle. Patient voices understanding of this. I reviewed and discussed her case today. Debridement was performed today as noted in the clinical panel to all of the ulcer sites. The following work up and care recommendations were made: Dressing: Chuyita anterior left leg and right leg; Chuyita right ankle lateral and medial; Chuyita left hallux, 2 x 2 gauze, cotton, Coban and an offloading pad to the first metatarsophalangeal joint Wash: Soap and water Tissue growth optimization: Chuyita Offload: Offloading dressing of the first metatarsophalangeal joint and left hallux Vascular: Vascular status intact with palpable pedal pulses Edema: Elevation of the left lower extremity and right lower extremity control to control edema. Patient instructed to wear double Tubigrip stockings Infection: No localized signs of infection Pain: May take [id number] Tylenol, safe oral anti-inflammatory use discussed. Host factors: Chronic venous insufficiency I answered all the patient's questions. To return to the wound healing center in 1 week or call sooner if the patient has any questions or concerns. Note: [employer] speech recognition combiner operator software was used to create portions of this document. Sound-alike and misspelled words, as well as other combiner operator errors may be contained in the documentation.
[2021-11-06 10:09] VITALS: BP 160/65; PULSE 81; TEMP 35.7; BMI 25.7
--- NOTE | 2021-11-06 10:33 | PN.PCM_ITS ---
History of Present Illness Date of Service: 11/06/21 Chief Complaint: Left leg swelling and left anterior leg ulceration, left hallux plantar wound History of Wound: Patient has been treated with Chuyita to both ulceration sites and an offloading pad to the left hallux. Subjective Subjective This is an 86-year-old female who presents for follow-up to the wound care center for left lower extremity ulceration, left hallux ulceration, and right lateral ankle ulceration. She denies any constitutional symptoms. She is present with her assistant track and field coach today who is continuing to help her change her dressings daily. She has no other complaints today. Objective Data Objective Data Vital Signs: Vital Signs Temp Pulse Resp BP 96.2 F L 81 18 160/65 H 11/06/21 10:09 11/06/21 10:09 10/24/21 00:37 11/06/21 10:09 Weight: 70.307 kg Body Mass Index (BMI) 25.7 Physical Exam Const alert, oriented x3 and no apparent distress General Appearance: cooperative and comfortable HEENT normocephalic Eyes General Eye: normal appearance of both eyes Neck General: normal visual inspection Lymph Lymphatic: no lymphadenopathy noted and no lymphedema noted Resp normal respiratory effort Cardio regular rate and regular rhythm Extremity normal capillary refill Left Lower Extremity: foot and digits Positive for ROM (Decreased hallux range of motion secondary to 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 Left lower extremity ulceration anterior with localized rubor and granular tissue to the wound bed. No localized signs of infection. Left hallux sub-IPJ ulceration demonstrates healthy granular base with surrounding hyperkeratotic tissue. No localized signs of infection to the left hallux. Right lower extremity lateral ankle ulceration demonstrates a healthy granular base with yellow crusting overlying and about the ulcerative site. Ulcerative site demonstrates no localized signs of infection. Neuro oriented x3 and moves all extremities Motor Exam: strength 5/5 throughout Debridement Note Debridement Note Wound debrided: Left anterior leg Laterality: Left Wound Grade/Stage: Russell stage I Type of Debridement: Excisional debridement Anesthesia Used: 4% Lidocaine Solution Depth: Down to and including healthy tissue and in the subcutaneous layer Percentage of wound debrided: 100 Instrument Used: - (1 mm curette) Tissue Removed: Fibrous, devitalized subcutaneous, biofilm, slough Severity: Fat Layer Exposed Amount of bleeding with debridement: Mild Bleeding Controlled with: Compression and gauze Patient tolerated procedure: Patient tolerated procedure well Post-Debridement Measurements and Additional Note: Post-Debridement Measurements/Treatment BRAN - Nurse 1 - General Ulcer Assessment Start: 10/30/21 10:15 Freq: Status: Active Protocol: ALEX Activity Type Activity Date Activity User E-Sign Co-Sign Detail Recorded Client Recorded Date Recorded By Document 10/30/21 10:15 TORSTEN [id number] 10/30/21 10:23 KR Document 11/06/21 10:09 MAC [id number] 11/06/21 10:12 MAC 10/30/21 11/06/21 10:15 10:09 - Today's Visit Information Type of service Follow-up Visit Follow-up Visit (Physician/FIELD STAFF MANAGER (Physician/FIELD STAFF MANAGER ) ) Arrival Mode Ambulatory,Cane Ambulatory,Cane Accompanied by aid Patient Identification Verified (Name & Yes Yes ) Patient Requires Transmission-Based No Precautions Safety Precautions NA Height and Weight Body Mass Index (BMI) 25.7 25.7 BMI Classification Overweight Overweight Vital Signs Temperature (97.8 F-99.1 F) 96.4 F L 96.2 F L Temperature Source Temporal Temporal Pulse Rate (60-100) 66 81 Pulse Location Monitor Monitor Blood Pressure (90/60-120/80) 131/78 H 160/65 H Blood Pressure Mean (mm Hg) 95 96 Source Monitor Monitor Position Semi-Fowlers Blood Pressure Location Left Arm History Since Last Visit- (Skip if this is Patient's initial visit) Have you changed medications since your No No last visit? Any new allergies or adverse reactions No No Had a fall/change in ADL's that may No No increase risk of falls Signs or symptoms of abuse and/or No No neglect since last visit Have you been in the hospital since your No No last visit? Has dressing in place as prescribed Yes Yes Has compression in place as prescribed Yes N/A Has offloadiing in place as prescribed N/A N/A Experienced any changes in pain level or No No management Left Footwear Regular Shoe Regular Shoe Right Footwear Regular Shoe Regular Shoe Pain Scale: 0-10 Numeric Is Patient Pain Free? Yes Yes WC - Nurse 1 - General Ulcer Measurement Start: 10/30/21 10:15 Freq: Status: Active Protocol: Activity Type Activity Date Activity User E-Sign Co-Sign Detail Recorded Client Recorded Date Recorded By Document 10/30/21 10:15 TORSTEN [id number] 10/30/21 10:23 KR Document 11/06/21 10:09 AK [id number] 11/06/21 10:12 AK 10/30/21 11/06/21 10:15 10:09 Wound Center Nurse 1 #2 Left Gr Toe -Combined with other wound No -Current Size (cm) - Length 0.3 0.1 -Current Size (cm) - Width 0.2 0.1 -Current Size (cm) - Depth 0.1 0.1 -Total Square Cm 0.06 0.01 -Photo Taken No -Tunneling No -Undermining/Tunneling No -Circular Undermining No -Exudate Amt None Present Small -Exudate Type Serosanguineous -Wound Margin Distinct, Distinct, Outline Outline Attached Attached -Granulation Amt Small (1-33%) Small (1-33%) -Granulation Quality Red Pale,[place] -Necrosis Amt None Present (0 Small (1-33%) %) -Necrotic Tissue Type Adherent Slough -Structure Exposed N/A -Texture (Vangie-wound Skin Appearance) Assessed,Callus Assessed,Callus ,Scarring -Moisture (Vangie-wound Skin Appearance) Assessed,Dry/ No Abnormality, Scaly Assessed -Color (Vangie-wound Skin Appearance) No Abnormality, No Abnormality, Assessed Assessed -Temperature (Vangie-wound Skin No Abnormality No Abnormality Appearance) (Pt Warm) (Pt Warm) -Tenderness on Palpation (Vangie-wound No No Skin Appearance) -Ulcer Cleansing Rinsed/ Rinsed/ Irrigated with Irrigated with Saline Saline -Foul Odor after Cleansing No No -Anesthetic Used 5% Lidocaine 5% Lidocaine Gel Gel #3 left anterior leg -Combined with other wound No -Current Size (cm) - Length 0.4 0.1 -Current Size (cm) - Width 0.4 0.1 -Current Size (cm) - Depth 0.1 0.1 -Total Square Cm 0.16 0.01 -Photo Taken No -Tunneling No -Undermining/Tunneling No -Circular Undermining No -Change in Wound Grade/Stage No -Exudate Amt None Present None Present -Wound Margin Distinct, Distinct, Outline Outline Attached Attached -Granulation Amt None Present (0 %) -Granulation Quality N/A -Slough/Fibrin No -Necrosis Amt None Present (0 None Present (0 %) %) -Structure Exposed N/A -Texture (Vangie-wound Skin Appearance) Assessed, No Abnormality, Scarring Assessed -Moisture (Vangie-wound Skin Appearance) Assessed,Dry/ No Abnormality, Scaly Assessed -Color (Vangie-wound Skin Appearance) No Abnormality, No Abnormality, Assessed Assessed -Temperature (Vangie-wound Skin No Abnormality No Abnormality Appearance) (Pt Warm) (Pt Warm) -Tenderness on Palpation (Vangie-wound No No Skin Appearance) -Ulcer Cleansing Rinsed/ Rinsed/ Irrigated with Irrigated with Saline Saline -Foul Odor after Cleansing No No -Anesthetic Used 5% Lidocaine 4% Lidocaine Gel Solution Lower Limb Edema Present No WC - Nurse 2 - General Ulcer CM Notes Start: 10/30/21 10:15 Freq: Status: Active Protocol: Activity Type Activity Date Activity User E-Sign Co-Sign Detail Recorded Client Recorded Date Recorded By Document 10/30/21 12:19 PL [id number] 10/30/21 12:21 PL 10/30/21 12:19 Wound Center Nurse 2 #2 Left Gr Toe -Time 10:34 -Correct Patient Yes -Correct Side, Site, Position Yes -Correct Procedure Yes -Procedure Performed Yes -Type of Procedure Debridement -Clinical Debridement Subcutaneous -Tissue Removed Subcutaneous -Post Debridement (cm) - Length 0.3 -Post Debridement (cm) - Width 0.2 -Post Debridement (cm) - Depth 0.1 -Total Square (Post) (cm) 0.06 -Area of Debridement (cm) - Length 0.3 -Area of Debridement (cm) - Width 0.2 -Total Square (Area) (cm) 0.06 -Tunneling No -Undermining/Tunneling No -Circular Undermining No -Wound/Ulcer Outcome Not Healed -Ulcer Cleansing Rinsed/ Irrigated with Saline -Foul Odor after Cleansing No -Bioengineered Tissue No -Bleeding Controlled with Pressure -Treatment Response Procedure Tolerated Well -Debridement - Subq, 1st 20sq cm No #3 left anterior leg -Time 10:34 -Correct Patient Yes -Correct Side, Site, Position Yes -Correct Procedure Yes -Procedure Performed Yes -Type of Procedure Debridement -Clinical Debridement Subcutaneous -Tissue Removed Subcutaneous -Post Debridement (cm) - Length 0.4 -Post Debridement (cm) - Width 0.4 -Post Debridement (cm) - Depth 0.1 -Total Square (Post) (cm) 0.16 -Area of Debridement (cm) - Length 0.4 -Area of Debridement (cm) - Width 0.4 -Total Square (Area) (cm) 0.16 -Tunneling No -Undermining/Tunneling No -Circular Undermining No -Wound/Ulcer Outcome Not Healed -Ulcer Cleansing Rinsed/ Irrigated with Saline -Foul Odor after Cleansing No -Bioengineered Tissue No -Bleeding Controlled with Pressure -Treatment Response Procedure Tolerated Well -Debridement - Subq, 1st 20sq cm Yes Pain Scale: 0-10 Numeric Is Patient Pain Free? Yes - Nurse 3 - General Ulcer D/C NN Start: 10/30/21 10:15 Freq: Status: Active Protocol: Activity Type Activity Date Activity User E-Sign Co-Sign Detail Recorded Client Recorded Date Recorded By Document 10/30/21 10:49 IA [id number] 10/30/21 10:51 MAC 10/30/21 10:49 Wound Care Nurse 3 #2 Left Gr Toe -Ulcer Cleansing Rinsed/ Irrigated with Saline -Foul Odor after Cleansing No -Negative Pressure Wound Therapy N/A -Primary Dressing Applied Promogran Chuyita Matter -Primary Dressing Covered/Secured with Dry Gauze, Secured with Tape -Promogran Chuyita Matter 1 #3 left anterior leg -Ulcer Cleansing Rinsed/ Irrigated with Saline -Foul Odor after Cleansing No -Negative Pressure Wound Therapy N/A -Primary Dressing Applied Promogran Chuyita Matter -Primary Dressing Covered/Secured with Dry Gauze, Secured with Tape -Promogran Chuyita Matter 0 Pain Scale: 0-10 Numeric Is Patient Pain Free? Yes - Visit Discharge Discharge Condition Stable Ambulatory Status Ambulatory Transportation Private Auto Accompanied by aid Medication Reconcilliation completed & Yes provided to patient/care provider Clinical Summary of Care Provided Yes Additional Wound Wound debrided: Left plantar hallux Laterality: Left Wound Grade/Stage: Russell stage I Type of Debridement: Excisional debridement Anesthesia Used: 4% Lidocaine Solution Depth: Down to and including healthy tissue and in the subcutaneous layer Percentage of wound debrided: 100 Instrument Used: - (#313 blade) Tissue Removed: Fibrous, devitalized subcutaneous, biofilm, slough Severity: Fat Layer Exposed Amount of bleeding with debridement: Mild Bleeding Controlled with: Compression and gauze Patient tolerated procedure: Patient tolerated procedure well Additional Wound Wound debrided: Right lateral ankle Laterality: Right Wound Grade/Stage: Russell stage I Type of Debridement: Excisional debridement Anesthesia Used: 4% Lidocaine Solution Depth: Down to and including healthy tissue and in the subcutaneous layer Percentage of wound debrided: 100 Instrument Used: - (1 mm curette) Tissue Removed: Fibrous, devitalized subcutaneous, biofilm, slough Severity: Fat Layer Exposed Amount of bleeding with debridement: Mild Bleeding Controlled with: Compression and gauze Patient tolerated procedure: Patient tolerated procedure well Assessment/Plan Assessment/Plan (1) Non-pressure chronic ulcer of left calf with fat layer exposed: CODE(S): L97.222 - Non-pressure chronic ulcer of left calf with fat layer exposed (2) Non-pressure chronic ulcer of right calf with fat layer exposed: CODE(S): L97.212 - Non-pressure chronic ulcer of right calf with fat layer exposed (3) Non-pressure chronic ulcer of right ankle with fat layer exposed: CODE(S): L97.312 - Non-pressure chronic ulcer of right ankle with fat layer exposed (4) Non-pressure 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: CODE(S): L97.522 - Non-pressure 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 (5) Varicose veins of left lower extremity with ulcer of calf: CODE(S): I83.022 - Varicose veins of left lower extremity with ulcer of calf (6) Chronic venous insufficiency: (7) Leg edema, left: CODE(S): R60.0 - Localized edema (8) COPD (chronic obstructive pulmonary disease): CODE(S): J44.9 - Chronic obstructive pulmonary disease, unspecified (9) Edema leg: CODE(S): R60.0 - Localized edema (10) Spinal stenosis: CODE(S): M48.00 - Spinal stenosis, site unspecified (11) Back pain: CODE(S): M54.9 - Dorsalgia, unspecified PLAN: This is an 86-year-old female with history of COPD and spinal stenosis who presents to the wound care clinic for follow-up of left lower extremity anterior ulceration secondary to chronic venous insufficiency. She also has a left medial hallux IPJ ulceration secondary to decreased range of motion at the first metatarsophalangeal joint due to end-stage arthritis. She had venous studies performed confirming reflux of the left great saphenous vein with no deep venous thrombosis bilaterally. Right lateral leg and medial leg ulcerations remain healed. 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 Ulceration site left lower extremity, Russell stage I, was debrided sharply with a 1 mm curette. Ulceration site is continuing to show progression with continued decrease in size. Debridement performed to remove fibrous, devitalized tissue, biofilm, and slough. Ulceration site demonstrates no localized signs of infection. I debrided the left hallux medial IPJ hyperkeratotic tissue with a #313 blade removing all nonviable tissue, devitalized subcutaneous, biofilm, and slough of this Russell stage I ulceration. Ulceration site demonstrates no localized signs of infection. Left hallux ulceration site is showing progression and decreasing in size overall with less callus buildup. This wound is continuing to near closure. Patient continues to offload the first metatarsophalangeal joint and hallux with an offloading pad to the plantar first metatarsal head. Offloading the site is zepeda to decreasing pressure and healing this ulceration on the plantar hallux. I discussed continuing to wear the surgical shoe to the left foot to prevent the ends of her toes from hitting in her shoe. Right lateral ankle wound continues to show progression with reduction in size with no localized signs of infection. Ulceration sites dressed with Chuyita, dry sterile dressing, and double Tubigrip applied to the bilateral lower extremities. Hallux ulceration site was dressed with Chuyita, 2 x 2 gauze, cotton padding, Coban and an offloading pad to the first metatarsophalangeal joint. I discussed continued offloading of the hallux ulceration site with felt pads & surgical shoe. She has ordered protective shoes and inserts and is still awaiting arrival of shoes. Patient to continue to elevate lower extremities in addition to wearing her Tubigrip compression stockings bilateral to aid in edema control. I discussed with her that she is to continue to elevate her feet at times of rest and dorsiflex and plantarflex her foot a few times to aid in venous return by utilization of her calf muscle. Patient voices understanding of this. I reviewed and discussed her case today. Debridement was performed today as noted in the clinical panel to all of the ulcer sites. The following work up and care recommendations were made: Dressing: Chuyita anterior left leg and right leg; Chuyita right ankle lateral and medial; Chuyita left hallux, 2 x 2 gauze, cotton, Coban and an offloading pad to the first metatarsophalangeal joint Wash: Soap and water Tissue growth optimization: Chuyita Offload: Offloading dressing of the first metatarsophalangeal joint and left hallux Vascular: Vascular status intact with palpable pedal pulses Edema: Elevation of the left lower extremity and right lower extremity control to control edema. Patient instructed to wear double Tubigrip stockings Infection: No localized signs of infection Pain: May take [id number] Tylenol, safe oral anti-inflammatory use discussed. Host factors: Chronic venous insufficiency I answered all the patient's questions. To return to the wound healing center in 1 week or call sooner if the patient has any questions or concerns. Note: [employer] speech recognition photo producer software was used to create portions of this document. Sound-alike and misspelled words, as well as other photo producer errors may be contained in the documentation.
[2021-11-13 10:04] VITALS: BP 144/50; PULSE 83; TEMP 36; BMI 25.7
--- NOTE | 2021-11-13 13:02 | PN.PCM_ITS ---
History of Present Illness Date of Service: 11/13/21 Chief Complaint: Left leg swelling and left anterior leg ulceration, left hallux plantar wound History of Wound: Patient has been treated with Chuyita to both ulceration sites and an offloading pad to the left hallux. Subjective Subjective This is an 86-year-old female who presents for follow-up to the wound care center for left lower extremity ulceration, left hallux ulceration, and right lateral ankle ulceration. She denies any constitutional symptoms. She is present with her clinical services assistant today who is continuing to help her change her dressings daily. She informs me she is still waiting on her shoes and offloading inserts. She has no other complaints today. Objective Data Objective Data Vital Signs: Vital Signs Temp Pulse Resp BP 96.8 F L 83 18 144/50 H 11/13/21 10:04 11/13/21 10:04 10/24/21 00:37 11/13/21 10:04 Weight: 70.307 kg Body Mass Index (BMI) 25.7 Physical Exam Const alert, oriented x3 and no apparent distress General Appearance: cooperative and comfortable HEENT normocephalic Eyes General Eye: normal appearance of both eyes Neck General: normal visual inspection Lymph Lymphatic: no lymphadenopathy noted and no lymphedema noted Resp normal respiratory effort Cardio regular rate and regular rhythm Extremity normal capillary refill Left Lower Extremity: foot and digits Positive for ROM (Decreased hallux range of motion secondary to 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 Left lower extremity ulceration anterior with localized rubor and granular tissue to the wound bed. No localized signs of infection. Left hallux sub-IPJ ulceration demonstrates healthy granular base with surrounding hyperkeratotic tissue. No localized signs of infection to the left hallux. Right lower extremity lateral ankle ulceration demonstrates a healthy granular base with yellow crusting overlying and about the ulcerative site. Ulcerative site demonstrates no localized signs of infection. Neuro oriented x3 and moves all extremities Motor Exam: strength 5/5 throughout Debridement Note Debridement Note Wound debrided: Left anterior leg Laterality: Left Wound Grade/Stage: Russell stage I Type of Debridement: Excisional debridement Anesthesia Used: 4% Lidocaine Solution Depth: Down to and including healthy tissue and in the subcutaneous layer Percentage of wound debrided: 100 Instrument Used: - (1 mm curette) Tissue Removed: Fibrous, devitalized subcutaneous, biofilm, slough Severity: Fat Layer Exposed Amount of bleeding with debridement: Mild Bleeding Controlled with: Compression and gauze Patient tolerated procedure: Patient tolerated procedure well Post-Debridement Measurements and Additional Note: Post-Debridement Measurements/Treatment - Nurse 1 - General Ulcer Assessment Start: 10/30/21 10:15 Freq: Status: Active Protocol: ALEX Activity Type Activity Date Activity User E-Sign Co-Sign Detail Recorded Client Recorded Date Recorded By Document 10/30/21 10:15 TORSTEN [id number] 10/30/21 10:23 KR Document 11/06/21 10:09 MAC [id number] 11/06/21 10:12 AK Document 11/13/21 10:04 TORSTEN [id number] 11/13/21 10:13 TORSTEN 10/30/21 11/06/21 11/13/21 10:15 10:09 10:04 - Today's Visit Information Type of service Follow-up Visit Follow-up Visit Follow-up Visit (Physician/[employer] (Physician/[employer] (Physician/[employer] ) ) ) Arrival Mode Ambulatory,Cane Ambulatory,Cane Ambulatory,Cane Accompanied by aid Patient Identification Verified (Name & Yes Yes Yes ) Patient Requires Transmission-Based No Precautions Safety Precautions NA Height and Weight Body Mass Index (BMI) 25.7 25.7 25.7 BMI Classification Overweight Overweight Overweight Vital Signs Temperature (97.8 F-99.1 F) 96.4 F L 96.2 F L 96.8 F L Temperature Source Temporal Temporal Temporal Pulse Rate (60-100) 66 81 83 Pulse Location Monitor Monitor Monitor Blood Pressure (90/60-120/80) 131/78 H 160/65 H 144/50 H Blood Pressure Mean (mm Hg) 95 96 81 Source Monitor Monitor Monitor Position Semi-Fowlers Sitting Blood Pressure Location Left Arm Left Arm History Since Last Visit- (Skip if this is Patient's initial visit) Have you changed medications since your No No No last visit? Any new allergies or adverse reactions No No No Had a fall/change in ADL's that may No No No increase risk of falls Signs or symptoms of abuse and/or No No No neglect since last visit Have you been in the hospital since your No No No last visit? Has dressing in place as prescribed Yes Yes Yes Has compression in place as prescribed Yes N/A Has offloadiing in place as prescribed N/A N/A N/A Experienced any changes in pain level or No No No management Left Footwear Regular Shoe Regular Shoe Regular Shoe Right Footwear Regular Shoe Regular Shoe Regular Shoe Pain Scale: 0-10 Numeric Is Patient Pain Free? Yes Yes Yes WC - Nurse 1 - General Ulcer Measurement Start: 10/30/21 10:15 Freq: Status: Active Protocol: Activity Type Activity Date Activity User E-Sign Co-Sign Detail Recorded Client Recorded Date Recorded By Document 10/30/21 10:15 TORSTEN [id number] 10/30/21 10:23 KR Document 11/06/21 10:09 MAC [id number] 11/06/21 10:12 AK Document 11/13/21 10:04 KR [id number] 11/13/21 10:13 KR 10/30/21 11/06/21 11/13/21 10:15 10:09 10:04 Wound Center Nurse 1 #5 r lateral ankle -Combined with other wound No -Current Size (cm) - Length 0.3 -Current Size (cm) - Width 0.2 -Current Size (cm) - Depth 0.1 -Total Square Cm 0.06 -Photo Taken No -Tunneling No -Undermining/Tunneling No -Circular Undermining No -Change in Wound Grade/Stage No -Exudate Amt Medium -Exudate Type Serosanguineous -Wound Margin Distinct, Outline Attached -Granulation Quality N/A -Slough/Fibrin No -Necrosis Amt None Present (0 %) -Structure Exposed N/A -Texture (Vangie-wound Skin Appearance) Assessed -Moisture (Vangie-wound Skin Appearance) Assessed -Color (Vangie-wound Skin Appearance) Assessed -Tenderness on Palpation (Vangie-wound No Skin Appearance) -Ulcer Cleansing Rinsed/ Irrigated with Saline -Foul Odor after Cleansing No -Anesthetic Used 5% Lidocaine Gel #2 Left Gr Toe -Combined with other wound No No -Current Size (cm) - Length 0.3 0.1 0.4 -Current Size (cm) - Width 0.2 0.1 0.4 -Current Size (cm) - Depth 0.1 0.1 0.1 -Total Square Cm 0.06 0.01 0.16 -Photo Taken No No -Epithelialization Small 1-33% -Tunneling No No -Undermining/Tunneling No No -Circular Undermining No No -Change in Wound Grade/Stage No -Exudate Amt None Present Small Medium -Exudate Type Serosanguineous Serosanguineous -Wound Margin Distinct, Distinct, Distinct, Outline Outline Outline Attached Attached Attached -Granulation Amt Small (1-33%) Small (1-33%) -Granulation Quality Red Pale,Peters N/A -Slough/Fibrin No -Necrosis Amt None Present (0 Small (1-33%) Medium (34-66%) %) -Necrotic Tissue Type Adherent Slough Adherent Slough -Structure Exposed N/A -Texture (Vangie-wound Skin Appearance) Assessed,Callus Assessed,Callus No Abnormality, ,Scarring Assessed -Moisture (Vangie-wound Skin Appearance) Assessed,Dry/ No Abnormality, No Abnormality, Scaly Assessed Assessed -Color (Vangie-wound Skin Appearance) No Abnormality, No Abnormality, No Abnormality, Assessed Assessed Assessed -Temperature (Vangie-wound Skin No Abnormality No Abnormality No Abnormality Appearance) (Pt Warm) (Pt Warm) (Pt Warm) -Tenderness on Palpation (Vangie-wound No No No Skin Appearance) -Ulcer Cleansing Rinsed/ Rinsed/ Soap and Water Irrigated with Irrigated with Saline Saline -Foul Odor after Cleansing No No No -Anesthetic Used 5% Lidocaine 5% Lidocaine 5% Lidocaine Gel Gel Gel #3 left anterior leg -Combined with other wound No No -Current Size (cm) - Length 0.4 0.1 0.4 -Current Size (cm) - Width 0.4 0.1 0.2 -Current Size (cm) - Depth 0.1 0.1 0.1 -Total Square Cm 0.16 0.01 0.08 -Photo Taken No No -Tunneling No No -Undermining/Tunneling No No -Circular Undermining No No -Change in Wound Grade/Stage No No -Exudate Amt None Present None Present Small -Exudate Type Serosanguineous -Wound Margin Distinct, Distinct, Distinct, Outline Outline Outline Attached Attached Attached -Granulation Amt None Present (0 %) -Granulation Quality N/A N/A -Slough/Fibrin No Yes -Necrosis Amt None Present (0 None Present (0 Small (1-33%) %) %) -Necrotic Tissue Type Eschar -Structure Exposed N/A N/A -Texture (Vangie-wound Skin Appearance) Assessed, No Abnormality, Assessed Scarring Assessed -Moisture (Vangie-wound Skin Appearance) Assessed,Dry/ No Abnormality, No Abnormality, Scaly Assessed Assessed -Color (Vangie-wound Skin Appearance) No Abnormality, No Abnormality, No Abnormality, Assessed Assessed Assessed -Temperature (Vangie-wound Skin No Abnormality No Abnormality No Abnormality Appearance) (Pt Warm) (Pt Warm) (Pt Warm) -Tenderness on Palpation (Vangie-wound No No No Skin Appearance) -Ulcer Cleansing Rinsed/ Rinsed/ Rinsed/ Irrigated with Irrigated with Irrigated with Saline Saline Saline -Foul Odor after Cleansing No No No -Anesthetic Used 5% Lidocaine 4% Lidocaine 5% Lidocaine Gel Solution Gel Lower Limb Edema Present No WC - Nurse 2 - General Ulcer CM Notes Start: 10/30/21 10:15 Freq: Status: Active Protocol: Activity Type Activity Date Activity User E-Sign Co-Sign Detail Recorded Client Recorded Date Recorded By Document 10/30/21 12:19 PL [id number] 10/30/21 12:21 PL Document 11/06/21 12:41 PL [id number] 11/06/21 12:44 PL Edit Result 11/06/21 12:41 PL (1) [id number] 11/07/21 07:08 PL (1) #3 left anterior leg - Debridement - Subq, 1st 20sq cm No => Yes 10/30/21 11/06/21 12:19 12:41 Wound Center Nurse 2 #2 Left Gr Toe -Time 10:34 10:15 -Correct Patient Yes Yes -Correct Side, Site, Position Yes Yes -Correct Procedure Yes Yes -Procedure Performed Yes Yes -Type of Procedure Debridement Debridement -Clinical Debridement Subcutaneous Subcutaneous -Tissue Removed Subcutaneous Subcutaneous -Post Debridement (cm) - Length 0.3 0.1 -Post Debridement (cm) - Width 0.2 0.1 -Post Debridement (cm) - Depth 0.1 0.1 -Total Square (Post) (cm) 0.06 0.01 -Area of Debridement (cm) - Length 0.3 0.1 -Area of Debridement (cm) - Width 0.2 0.1 -Total Square (Area) (cm) 0.06 0.01 -Tunneling No No -Undermining/Tunneling No No -Circular Undermining No No -Wound/Ulcer Outcome Not Healed Not Healed -Ulcer Cleansing Rinsed/ Rinsed/ Irrigated with Irrigated with Saline Saline -Foul Odor after Cleansing No No -Bioengineered Tissue No No -Bleeding Controlled with Pressure Pressure -Treatment Response Procedure Procedure Tolerated Well Tolerated Well -Debridement - Subq, 1st 20sq cm No No #3 left anterior leg -Time 10:34 10:15 -Correct Patient Yes Yes -Correct Side, Site, Position Yes Yes -Correct Procedure Yes Yes -Procedure Performed Yes Yes -Type of Procedure Debridement Debridement -Clinical Debridement Subcutaneous Subcutaneous -Tissue Removed Subcutaneous Subcutaneous -Post Debridement (cm) - Length 0.4 0.1 -Post Debridement (cm) - Width 0.4 0.1 -Post Debridement (cm) - Depth 0.1 0.1 -Total Square (Post) (cm) 0.16 0.01 -Area of Debridement (cm) - Length 0.4 0.1 -Area of Debridement (cm) - Width 0.4 0.1 -Total Square (Area) (cm) 0.16 0.01 -Tunneling No No -Undermining/Tunneling No No -Circular Undermining No No -Wound/Ulcer Outcome Not Healed Not Healed -Ulcer Cleansing Rinsed/ Irrigated with Saline -Foul Odor after Cleansing No -Bioengineered Tissue No No -Bleeding Controlled with Pressure -Treatment Response Procedure Tolerated Well -Debridement - Subq, 1st 20sq cm Yes Yes Pain Scale: 0-10 Numeric Is Patient Pain Free? Yes Yes WC - Nurse 3 - General Ulcer D/C NN Start: 10/30/21 10:15 Freq: Status: Active Protocol: Activity Type Activity Date Activity User E-Sign Co-Sign Detail Recorded Client Recorded Date Recorded By Document 10/30/21 10:49 MAC [id number] 10/30/21 10:51 AK Document 11/06/21 10:46 MAC [id number] 11/06/21 10:48 AK Document 11/13/21 11:14 MAC [id number] 11/13/21 11:16 AK 10/30/21 11/06/21 11/13/21 10:49 10:46 11:14 Wound Care Nurse 3 #6 right lower leg -Ulcer Cleansing Rinsed/ Irrigated with Saline -Foul Odor after Cleansing No -Negative Pressure Wound Therapy N/A -Primary Dressing Applied Promogran Chuyita Matter -Primary Dressing Covered/Secured with Dry Gauze, Secured with Tape -Promogran Chuyita Matter 0 #5 r lateral ankle -Ulcer Cleansing Rinsed/ Irrigated with Saline -Foul Odor after Cleansing No -Negative Pressure Wound Therapy N/A -Primary Dressing Applied Promogran Chuyita Matter -Primary Dressing Covered/Secured with Dry Gauze, Secured with Tape -Promogran Chuyita Matter 0 #2 Left Gr Toe -Ulcer Cleansing Rinsed/ Rinsed/ Rinsed/ Irrigated with Irrigated with Irrigated with Saline Saline Saline -Foul Odor after Cleansing No No -Negative Pressure Wound Therapy N/A N/A -Primary Dressing Applied Promogran Promogran NonAdherent Chuyita Matter Chuyita Matter Contact Layer, Promogran Chuyita Matter -Primary Dressing Covered/Secured with Dry Gauze, Dry Gauze, Dry Gauze, Secured with Secured with Secured with Tape Tape Tape -Promogran Chuyita Matter 1 1 0 #3 left anterior leg -Ulcer Cleansing Rinsed/ Irrigated with Saline -Foul Odor after Cleansing No -Negative Pressure Wound Therapy N/A -Primary Dressing Applied Promogran NonAdherent Chuyita Matter Contact Layer, Promogran Chuyita Matter -Primary Dressing Covered/Secured with Dry Gauze, Dry Gauze, Secured with Secured with Tape Tape -Promogran Chuyita Matter 0 0 Right -Tubular Bandage Single Layer -Size of Tubigrip Used Size E -Size E ($) 1 Left -Tubular Bandage Single Layer -Size of Tubigrip Used Size E -Size E ($) 1 Pain Scale: 0-10 Numeric Is Patient Pain Free? Yes Yes Yes WC - Visit Discharge Discharge Condition Stable Stable Stable Ambulatory Status Ambulatory Ambulatory Walker Transportation Private Auto Private Auto Private Auto Accompanied by aid aid Medication Reconcilliation completed & Yes Yes No provided to patient/care provider Clinical Summary of Care Provided Yes Yes No Additional Wound Wound debrided: Left plantar hallux Laterality: Left Wound Grade/Stage: Russell stage I Type of Debridement: Excisional debridement Anesthesia Used: 4% Lidocaine Solution Depth: Down to and including healthy tissue and in the subcutaneous layer Percentage of wound debrided: 100 Instrument Used: - (#313 blade) Tissue Removed: Hyperkeratotic, fibrous, devitalized subcutaneous, biofilm, slough Severity: Fat Layer Exposed Amount of bleeding with debridement: Mild Bleeding Controlled with: Compression and gauze Patient tolerated procedure: Patient tolerated procedure well Additional Wound Wound debrided: Right lateral ankle Laterality: Right Wound Grade/Stage: Russell stage I Type of Debridement: Excisional debridement Anesthesia Used: 4% Lidocaine Solution Depth: Down to and including healthy tissue and in the subcutaneous layer Percentage of wound debrided: 100 Instrument Used: - (1 mm curette) Tissue Removed: Fibrous, devitalized subcutaneous, biofilm, slough Severity: Fat Layer Exposed Amount of bleeding with debridement: Mild Bleeding Controlled with: Compression and gauze Patient tolerated procedure: Patient tolerated procedure well Assessment/Plan Assessment/Plan (1) Non-pressure chronic ulcer of left calf with fat layer exposed: CODE(S): L97.222 - Non-pressure chronic ulcer of left calf with fat layer exposed (2) Non-pressure chronic ulcer of right calf with fat layer exposed: CODE(S): L97.212 - Non-pressure chronic ulcer of right calf with fat layer exposed (3) Non-pressure chronic ulcer of right ankle with fat layer exposed: CODE(S): L97.312 - Non-pressure chronic ulcer of right ankle with fat layer exposed (4) Non-pressure 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: CODE(S): L97.522 - Non-pressure 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 (5) Varicose veins of left lower extremity with ulcer of calf: CODE(S): I83.022 - Varicose veins of left lower extremity with ulcer of calf (6) Chronic venous insufficiency: (7) Leg edema, left: CODE(S): R60.0 - Localized edema (8) COPD (chronic obstructive pulmonary disease): CODE(S): J44.9 - Chronic obstructive pulmonary disease, unspecified (9) Edema leg: CODE(S): R60.0 - Localized edema (10) Spinal stenosis: CODE(S): M48.00 - Spinal stenosis, site unspecified (11) Back pain: CODE(S): M54.9 - Dorsalgia, unspecified PLAN: This is an 86-year-old female with history of COPD and spinal stenosis who presents to the wound care clinic for follow-up of left lower extremity anterior ulceration secondary to chronic venous insufficiency. She also has a left medial hallux IPJ ulceration secondary to decreased range of motion at the first metatarsophalangeal joint due to end-stage arthritis. She had venous studies performed confirming reflux of the left great saphenous vein with no deep venous thrombosis bilaterally. I discussed her case today with her. Right lateral leg and medial leg ulcerations remain healed. 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 Right lateral ankle wound continues to show progression with reduction in size with no localized signs of infection. This ulcerative site is nearing closure. Ulceration site left lower extremity and right lower extremity, Russell stage I, was debrided sharply with a 1 mm curette as stated above in clinical panel. Ulceration sites are continuing to show progression with continued decrease in size. Ulceration site demonstrates no localized signs of infection. I debrided the left hallux medial IPJ hyperkeratotic tissue with a #313 blade removing all nonviable tissue, devitalized subcutaneous, biofilm, and slough of this Russell stage I ulceration. Ulceration site demonstrates no localized signs of infection. Left hallux ulceration site is showing progression and decreasing in size overall but still has callus buildup. This wound is continuing to near closure, but continued pressure reduction is essential. Patient continues to offload the first metatarsophalangeal joint and hallux with an offloading pad to the plantar first metatarsal head. Offloading the site is zepeda to decreasing pressure and healing this ulceration on the plantar hallux. She is continuing to demonstrate good progression overall with reduction of ulcerative sizes. Ulceration sites dressed with Chuyita, dry sterile dressing, and double Tubigrip applied to the bilateral lower extremities. Hallux ulceration site was dressed with Chuyita, 2 x 2 gauze, Webril cotton padding and an offloading pad to the first metatarsophalangeal joint. I discussed continued offloading of the hallux ulceration site with felt pads & surgical shoe. She has ordered protective shoes and inserts and is still awaiting arrival of shoes. Patient to continue to elevate lower extremities in addition to wearing her Tubigrip compression stockings bilateral to aid in edema control. I discussed with her that she is to continue to elevate her feet at times of rest and dorsiflex and plantarflex her foot a few times to aid in venous return by utilization of her calf muscle. Patient voices understanding of this. I reviewed and discussed her case today. Debridement was performed today as noted in the clinical panel to all of the ulcer sites. The following work up and care recommendations were made: Dressing: Chuyita anterior left leg and right leg; Chuyita right ankle lateral and medial; Chuyita left hallux, 2 x 2 gauze, cotton, Coban and an offloading pad to the first metatarsophalangeal joint Wash: Soap and water Tissue growth optimization: Chuyita Offload: Offloading dressing of the first metatarsophalangeal joint and left hallux Vascular: Vascular status intact with palpable pedal pulses Edema: Elevation of the left lower extremity and right lower extremity control to control edema. Patient instructed to wear double Tubigrip stockings Infection: No localized signs of infection Pain: May take [id number] Tylenol, safe oral anti-inflammatory use discussed. Host factors: Chronic venous insufficiency I answered all the patient's questions. To return to the wound healing center in 1 week or call sooner if the patient has any questions or concerns. Note: [employer] speech recognition equity manager software was used to create portions of this document. Sound-alike and misspelled words, as well as other equity manager errors may be contained in the documentation.
[2021-11-20 10:13] VITALS: TEMP 36.5; BMI 25.7
--- NOTE | 2021-11-20 10:40 | PCM.WC.PN ---
History of Present Illness Date of Service: 11/20/21 Chief Complaint: Left leg swelling and left anterior leg ulceration, left hallux plantar wound History of Wound: Patient has been treated with Chuyita to both ulceration sites and an offloading pad to the left hallux. Subjective Subjective This is an 86-year-old female who presents for follow-up to the wound care center for left lower extremity ulceration, left hallux ulceration, and right lateral ankle ulceration. She denies any constitutional symptoms. She is present with her publisher assistant today who is continuing to help her change her dressings daily. She informs me she is still waiting on her shoes and offloading inserts. She states the pair of shoes she was wearing recently has bruised the outside of her left foot. She has no other complaints today. Objective Data Objective Data Vital Signs: Vital Signs Temp Pulse Resp BP 97.7 F L 83 18 144/50 H 11/20/21 10:13 11/13/21 10:04 10/24/21 00:37 11/13/21 10:04 Weight: 70.307 kg Body Mass Index (BMI) 25.7 Physical Exam Const alert, oriented x3 and no apparent distress General Appearance: cooperative and comfortable HEENT normocephalic Eyes General Eye: normal appearance of both eyes Neck General: normal visual inspection Lymph Lymphatic: no lymphadenopathy noted and no lymphedema noted Resp normal respiratory effort Cardio regular rate and regular rhythm Extremity normal capillary refill Left Lower Extremity: foot and digits Positive for ROM (Decreased hallux range of motion secondary to 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 Left lower extremity ulceration anterior with localized rubor and granular tissue to the wound bed. No localized signs of infection. Left hallux sub-IPJ ulceration demonstrates healthy granular base with surrounding hyperkeratotic tissue. No localized signs of infection to the left hallux. Right lower extremity lateral ankle ulceration demonstrates a healthy granular base with yellow crusting overlying and about the ulcerative site. Ulcerative site demonstrates no localized signs of infection. Neuro oriented x3 and moves all extremities Motor Exam: strength 5/5 throughout Debridement Note Debridement Note Wound debrided: Left anterior leg Laterality: Left Wound Grade/Stage: Russell stage I Type of Debridement: Excisional debridement Anesthesia Used: 4% Lidocaine Solution Depth: Down to and including healthy tissue and in the subcutaneous layer Percentage of wound debrided: 100 Instrument Used: - (1 mm curette) Tissue Removed: Fibrous, devitalized subcutaneous, biofilm, slough Severity: Fat Layer Exposed Amount of bleeding with debridement: Mild Bleeding Controlled with: Compression and gauze Patient tolerated procedure: Patient tolerated procedure well Post-Debridement Measurements and Additional Note: Post-Debridement Measurements/Treatment - Nurse 1 - General Ulcer Assessment Start: 10/30/21 10:15 Freq: Status: Active Protocol: BRAN[employer] Activity Type Activity Date Activity User E-Sign Co-Sign Detail Recorded Client Recorded Date Recorded By Document 10/30/21 10:15 TORSTEN [id number] 10/30/21 10:23 KR Document 11/06/21 10:09 MAC [id number] 11/06/21 10:12 AK Document 11/13/21 10:04 KR [id number] 11/13/21 10:13 KR Document 11/20/21 10:13 KR [id number] 11/20/21 10:20 KR 10/30/21 11/06/21 11/13/21 10:15 10:09 10:04 - Today's Visit Information Type of service Follow-up Visit Follow-up Visit Follow-up Visit (Physician/ART THERAPY SPECIALIST (Physician/ART THERAPY SPECIALIST (Physician/ART THERAPY SPECIALIST ) ) ) Arrival Mode Ambulatory,Cane Ambulatory,Cane Ambulatory,Cane Accompanied by aid Patient Identification Verified (Name & Yes Yes Yes ) Patient Requires Transmission-Based No Precautions Safety Precautions NA Height and Weight Body Mass Index (BMI) 25.7 25.7 25.7 BMI Classification Overweight Overweight Overweight Vital Signs Temperature (97.8 F-99.1 F) 96.4 F L 96.2 F L 96.8 F L Temperature Source Temporal Temporal Temporal Pulse Rate (60-100) 66 81 83 Pulse Location Monitor Monitor Monitor Blood Pressure (90/60-120/80) 131/78 H 160/65 H 144/50 H Blood Pressure Mean (mm Hg) 95 96 81 Source Monitor Monitor Monitor Position Semi-Fowlers Sitting Blood Pressure Location Left Arm Left Arm History Since Last Visit- (Skip if this is Patient's initial visit) Have you changed medications since your No No No last visit? Any new allergies or adverse reactions No No No Had a fall/change in ADL's that may No No No increase risk of falls Signs or symptoms of abuse and/or No No No neglect since last visit Have you been in the hospital since your No No No last visit? Has dressing in place as prescribed Yes Yes Yes Has compression in place as prescribed Yes N/A Has offloadiing in place as prescribed N/A N/A N/A Experienced any changes in pain level or No No No management Left Footwear Regular Shoe Regular Shoe Regular Shoe Right Footwear Regular Shoe Regular Shoe Regular Shoe Pain Scale: 0-10 Numeric Is Patient Pain Free? Yes Yes Yes 11/20/21 10:13 WC - Today's Visit Information Type of service Follow-up Visit (Physician/ART THERAPY SPECIALIST ) Arrival Mode Ambulatory Accompanied by Patient Identification Verified (Name & Yes ) Patient Requires Transmission-Based Precautions Safety Precautions Height and Weight Body Mass Index (BMI) 25.7 BMI Classification Overweight Vital Signs Temperature (97.8 F-99.1 F) 97.7 F L Temperature Source Temporal Pulse Rate (60-100) Pulse Location Monitor Blood Pressure (90/60-120/80) Blood Pressure Mean (mm Hg) Source Monitor Position Sitting Blood Pressure Location Right Arm History Since Last Visit- (Skip if this is Patient's initial visit) Have you changed medications since your No last visit? Any new allergies or adverse reactions No Had a fall/change in ADL's that may No increase risk of falls Signs or symptoms of abuse and/or No neglect since last visit Have you been in the hospital since your No last visit? Has dressing in place as prescribed Yes Has compression in place as prescribed N/A Has offloadiing in place as prescribed N/A Experienced any changes in pain level or No management Left Footwear Regular Shoe Right Footwear Regular Shoe Pain Scale: 0-10 Numeric Is Patient Pain Free? Yes - Nurse 1 - General Ulcer Measurement Start: 10/30/21 10:15 Freq: Status: Active Protocol: Activity Type Activity Date Activity User E-Sign Co-Sign Detail Recorded Client Recorded Date Recorded By Document 10/30/21 10:15 TROSTEN [id number] 10/30/21 10:23 KR Document 11/06/21 10:09 AK [id number] 11/06/21 10:12 AK Document 11/13/21 10:04 KR [id number] 11/13/21 10:13 KR Document 11/20/21 10:13 KR [id number] 11/20/21 10:20 KR 10/30/21 11/06/21 11/13/21 10:15 10:09 10:04 Wound Center Nurse 1 #5 r lateral ankle -Combined with other wound No -Current Size (cm) - Length 0.3 -Current Size (cm) - Width 0.2 -Current Size (cm) - Depth 0.1 -Total Square Cm 0.06 -Photo Taken No -Tunneling No -Undermining/Tunneling No -Circular Undermining No -Change in Wound Grade/Stage No -Exudate Amt Medium -Exudate Type Serosanguineous -Wound Margin Distinct, Outline Attached -Granulation Amt -Granulation Quality N/A -Slough/Fibrin No -Necrosis Amt None Present (0 %) -Structure Exposed N/A -Texture (Vangie-wound Skin Appearance) Assessed -Moisture (Vangie-wound Skin Appearance) Assessed -Color (Vangie-wound Skin Appearance) Assessed -Temperature (Vangie-wound Skin Appearance) -Tenderness on Palpation (Vangie-wound No Skin Appearance) -Ulcer Cleansing Rinsed/ Irrigated with Saline -Foul Odor after Cleansing No -Anesthetic Used 5% Lidocaine Gel #2 Left Gr Toe -Combined with other wound No No -Current Size (cm) - Length 0.3 0.1 0.4 -Current Size (cm) - Width 0.2 0.1 0.4 -Current Size (cm) - Depth 0.1 0.1 0.1 -Total Square Cm 0.06 0.01 0.16 -Photo Taken No No -Epithelialization Small 1-33% -Tunneling No No -Undermining/Tunneling No No -Circular Undermining No No -Change in Wound Grade/Stage No -Exudate Amt None Present Small Medium -Exudate Type Serosanguineous Serosanguineous -Wound Margin Distinct, Distinct, Distinct, Outline Outline Outline Attached Attached Attached -Granulation Amt Small (1-33%) Small (1-33%) -Granulation Quality Red Pale,[place] N/A -Slough/Fibrin No -Necrosis Amt None Present (0 Small (1-33%) Medium (34-66%) %) -Necrotic Tissue Type Adherent Slough Adherent Slough -Structure Exposed N/A -Texture (Vangie-wound Skin Appearance) Assessed,Callus Assessed,Callus No Abnormality, ,Scarring Assessed -Moisture (Vangie-wound Skin Appearance) Assessed,Dry/ No Abnormality, No Abnormality, Scaly Assessed Assessed -Color (Vangie-wound Skin Appearance) No Abnormality, No Abnormality, No Abnormality, Assessed Assessed Assessed -Temperature (Vangie-wound Skin No Abnormality No Abnormality No Abnormality Appearance) (Pt Warm) (Pt Warm) (Pt Warm) -Tenderness on Palpation (Vangie-wound No No No Skin Appearance) -Ulcer Cleansing Rinsed/ Rinsed/ Soap and Water Irrigated with Irrigated with Saline Saline -Foul Odor after Cleansing No No No -Anesthetic Used 5% Lidocaine 5% Lidocaine 5% Lidocaine Gel Gel Gel #3 left anterior leg -Combined with other wound No No -Current Size (cm) - Length 0.4 0.1 0.4 -Current Size (cm) - Width 0.4 0.1 0.2 -Current Size (cm) - Depth 0.1 0.1 0.1 -Total Square Cm 0.16 0.01 0.08 -Photo Taken No No -Tunneling No No -Undermining/Tunneling No No -Circular Undermining No No -Change in Wound Grade/Stage No No -Exudate Amt None Present None Present Small -Exudate Type Serosanguineous -Wound Margin Distinct, Distinct, Distinct, Outline Outline Outline Attached Attached Attached -Granulation Amt None Present (0 %) -Granulation Quality N/A N/A -Slough/Fibrin No Yes -Necrosis Amt None Present (0 None Present (0 Small (1-33%) %) %) -Necrotic Tissue Type Eschar -Structure Exposed N/A N/A -Texture (Vangie-wound Skin Appearance) Assessed, No Abnormality, Assessed Scarring Assessed -Moisture (Vangie-wound Skin Appearance) Assessed,Dry/ No Abnormality, No Abnormality, Scaly Assessed Assessed -Color (Vangie-wound Skin Appearance) No Abnormality, No Abnormality, No Abnormality, Assessed Assessed Assessed -Temperature (Vangie-wound Skin No Abnormality No Abnormality No Abnormality Appearance) (Pt Warm) (Pt Warm) (Pt Warm) -Tenderness on Palpation (Vangie-wound No No No Skin Appearance) -Ulcer Cleansing Rinsed/ Rinsed/ Rinsed/ Irrigated with Irrigated with Irrigated with Saline Saline Saline -Foul Odor after Cleansing No No No -Anesthetic Used 5% Lidocaine 4% Lidocaine 5% Lidocaine Gel Solution Gel Lower Limb Edema Present No 11/20/21 10:13 Wound Center Nurse 1 #5 r lateral ankle -Combined with other wound -Current Size (cm) - Length 0.2 -Current Size (cm) - Width 0.2 -Current Size (cm) - Depth 0.1 -Total Square Cm 0.04 -Photo Taken -Tunneling -Undermining/Tunneling -Circular Undermining -Change in Wound Grade/Stage -Exudate Amt Small -Exudate Type Serosanguineous -Wound Margin Distinct, Outline Attached -Granulation Amt Small (1-33%) -Granulation Quality [place] -Slough/Fibrin -Necrosis Amt None Present (0 %) -Structure Exposed -Texture (Vangie-wound Skin Appearance) Assessed, Scarring -Moisture (Vangie-wound Skin Appearance) Assessed,Dry/ Scaly -Color (Vangie-wound Skin Appearance) No Abnormality, Assessed -Temperature (Vangie-wound Skin No Abnormality Appearance) (Pt Warm) -Tenderness on Palpation (Vangie-wound No Skin Appearance) -Ulcer Cleansing Rinsed/ Irrigated with Saline -Foul Odor after Cleansing No -Anesthetic Used 4% Lidocaine Solution #2 Left Gr Toe -Combined with other wound -Current Size (cm) - Length 0.2 -Current Size (cm) - Width 0.2 -Current Size (cm) - Depth 0.1 -Total Square Cm 0.04 -Photo Taken -Epithelialization -Tunneling -Undermining/Tunneling -Circular Undermining -Change in Wound Grade/Stage -Exudate Amt Small -Exudate Type Serosanguineous -Wound Margin Distinct, Outline Attached -Granulation Amt Small (1-33%) -Granulation Quality [place] -Slough/Fibrin -Necrosis Amt None Present (0 %) -Necrotic Tissue Type -Structure Exposed -Texture (Vangie-wound Skin Appearance) Assessed, Scarring -Moisture (Vangie-wound Skin Appearance) No Abnormality, Assessed -Color (Vangie-wound Skin Appearance) No Abnormality, Assessed -Temperature (Vangie-wound Skin No Abnormality Appearance) (Pt Warm) -Tenderness on Palpation (Vangie-wound No Skin Appearance) -Ulcer Cleansing Rinsed/ Irrigated with Saline -Foul Odor after Cleansing No -Anesthetic Used 4% Lidocaine Solution #3 left anterior leg -Combined with other wound -Current Size (cm) - Length 0.5 -Current Size (cm) - Width 0.5 -Current Size (cm) - Depth 0.1 -Total Square Cm 0.25 -Photo Taken -Tunneling -Undermining/Tunneling -Circular Undermining -Change in Wound Grade/Stage -Exudate Amt None Present -Exudate Type Serosanguineous -Wound Margin Distinct, Outline Attached -Granulation Amt None Present (0 %) -Granulation Quality -Slough/Fibrin -Necrosis Amt None Present (0 %) -Necrotic Tissue Type -Structure Exposed -Texture (Vangie-wound Skin Appearance) Assessed, Scarring -Moisture (Vangie-wound Skin Appearance) No Abnormality, Assessed -Color (Vangie-wound Skin Appearance) No Abnormality, Assessed -Temperature (Vangie-wound Skin No Abnormality Appearance) (Pt Warm) -Tenderness on Palpation (Vangie-wound No Skin Appearance) -Ulcer Cleansing Rinsed/ Irrigated with Saline -Foul Odor after Cleansing No -Anesthetic Used 4% Lidocaine Solution Lower Limb Edema Present WC - Nurse 2 - General Ulcer CM Notes Start: 10/30/21 10:15 Freq: Status: Active Protocol: Activity Type Activity Date Activity User E-Sign Co-Sign Detail Recorded Client Recorded Date Recorded By Document 10/30/21 12:19 PL [id number] 10/30/21 12:21 PL Document 11/06/21 12:41 PL [id number] 11/06/21 12:44 PL Edit Result 11/06/21 12:41 PL (1) [id number] 11/07/21 07:08 PL Document 11/13/21 13:21 PL [id number] 11/13/21 13:25 PL (1) #3 left anterior leg - Debridement - Subq, 1st 20sq cm No => Yes 10/30/21 11/06/21 11/13/21 12:19 12:41 13:21 Wound Center Nurse 2 #6 right lower leg -Procedure Performed No -Clinical Debridement Subcutaneous -Wound/Ulcer Outcome Healed- Epithelialized #5 r lateral ankle -Time 10:37 -Correct Patient Yes -Correct Side, Site, Position Yes -Correct Procedure Yes -Procedure Performed Yes -Type of Procedure Debridement -Clinical Debridement Subcutaneous -Tissue Removed Subcutaneous -Post Debridement (cm) - Length 0.3 -Post Debridement (cm) - Width 0.2 -Post Debridement (cm) - Depth 0.1 -Total Square (Post) (cm) 0.06 -Area of Debridement (cm) - Length 0.3 -Area of Debridement (cm) - Width 0.2 -Total Square (Area) (cm) 0.06 -Tunneling No -Undermining/Tunneling No -Circular Undermining No -Wound/Ulcer Outcome Not Healed -Ulcer Cleansing Rinsed/ Irrigated with Saline -Foul Odor after Cleansing No -Bioengineered Tissue No -Bleeding Controlled with Pressure -Treatment Response Procedure Tolerated Well -Debridement - Subq, 1st 20sq cm No #2 Left Gr Toe -Time 10:34 10:15 10:37 -Correct Patient Yes Yes Yes -Correct Side, Site, Position Yes Yes Yes -Correct Procedure Yes Yes Yes -Procedure Performed Yes Yes Yes -Type of Procedure Debridement Debridement Debridement -Clinical Debridement Subcutaneous Subcutaneous Subcutaneous -Tissue Removed Subcutaneous Subcutaneous Subcutaneous -Post Debridement (cm) - Length 0.3 0.1 0.4 -Post Debridement (cm) - Width 0.2 0.1 0.4 -Post Debridement (cm) - Depth 0.1 0.1 0.1 -Total Square (Post) (cm) 0.06 0.01 0.16 -Area of Debridement (cm) - Length 0.3 0.1 0.4 -Area of Debridement (cm) - Width 0.2 0.1 0.4 -Total Square (Area) (cm) 0.06 0.01 0.16 -Tunneling No No No -Undermining/Tunneling No No No -Circular Undermining No No No -Wound/Ulcer Outcome Not Healed Not Healed Not Healed -Ulcer Cleansing Rinsed/ Rinsed/ Rinsed/ Irrigated with Irrigated with Irrigated with Saline Saline Saline -Foul Odor after Cleansing No No No -Bioengineered Tissue No No No -Bleeding Controlled with Pressure Pressure Pressure -Treatment Response Procedure Procedure Procedure Tolerated Well Tolerated Well Tolerated Well -Debridement - Subq, 1st 20sq cm No No No #3 left anterior leg -Time 10:34 10:15 10:37 -Correct Patient Yes Yes Yes -Correct Side, Site, Position Yes Yes Yes -Correct Procedure Yes Yes Yes -Procedure Performed Yes Yes Yes -Type of Procedure Debridement Debridement Debridement -Clinical Debridement Subcutaneous Subcutaneous Subcutaneous -Tissue Removed Subcutaneous Subcutaneous Subcutaneous -Post Debridement (cm) - Length 0.4 0.1 0.4 -Post Debridement (cm) - Width 0.4 0.1 0.2 -Post Debridement (cm) - Depth 0.1 0.1 0.1 -Total Square (Post) (cm) 0.16 0.01 0.08 -Area of Debridement (cm) - Length 0.4 0.1 0.4 -Area of Debridement (cm) - Width 0.4 0.1 0.2 -Total Square (Area) (cm) 0.16 0.01 0.08 -Tunneling No No No -Undermining/Tunneling No No No -Circular Undermining No No No -Wound/Ulcer Outcome Not Healed Not Healed Not Healed -Ulcer Cleansing Rinsed/ Rinsed/ Irrigated with Irrigated with Saline Saline -Foul Odor after Cleansing No No -Bioengineered Tissue No No No -Bleeding Controlled with Pressure Pressure -Treatment Response Procedure Procedure Tolerated Well Tolerated Well -Debridement - Subq, 1st 20sq cm Yes Yes Yes Pain Scale: 0-10 Numeric Is Patient Pain Free? Yes Yes Yes WC - Nurse 3 - General Ulcer D/C NN Start: 10/30/21 10:15 Freq: Status: Active Protocol: Activity Type Activity Date Activity User E-Sign Co-Sign Detail Recorded Client Recorded Date Recorded By Document 10/30/21 10:49 [place] [id number] 10/30/21 10:51 [place] Document 11/06/21 10:46 [place] [id number] 11/06/21 10:48 [place] Document 11/13/21 11:14 [place] [id number] 11/13/21 11:16 [place] 10/30/21 11/06/21 11/13/21 10:49 10:46 11:14 Wound Care Nurse 3 #6 right lower leg -Ulcer Cleansing Rinsed/ Irrigated with Saline -Foul Odor after Cleansing No -Negative Pressure Wound Therapy N/A -Primary Dressing Applied Promogran Chuyita Matter -Primary Dressing Covered/Secured with Dry Gauze, Secured with Tape -Promogran Chuyita Matter 0 #5 r lateral ankle -Ulcer Cleansing Rinsed/ Irrigated with Saline -Foul Odor after Cleansing No -Negative Pressure Wound Therapy N/A -Primary Dressing Applied Promogran Chuyita Matter -Primary Dressing Covered/Secured with Dry Gauze, Secured with Tape -Promogran Chuyita Matter 0 #2 Left Gr Toe -Ulcer Cleansing Rinsed/ Rinsed/ Rinsed/ Irrigated with Irrigated with Irrigated with Saline Saline Saline -Foul Odor after Cleansing No No -Negative Pressure Wound Therapy N/A N/A -Primary Dressing Applied Promogran Promogran NonAdherent Chuyita Matter Chuyita Matter Contact Layer, Promogran Chuyita Matter -Primary Dressing Covered/Secured with Dry Gauze, Dry Gauze, Dry Gauze, Secured with Secured with Secured with Tape Tape Tape -Promogran Chuyita Matter 1 1 0 #3 left anterior leg -Ulcer Cleansing Rinsed/ Irrigated with Saline -Foul Odor after Cleansing No -Negative Pressure Wound Therapy N/A -Primary Dressing Applied Promogran NonAdherent Chuyita Matter Contact Layer, Promogran Chuyita Matter -Primary Dressing Covered/Secured with Dry Gauze, Dry Gauze, Secured with Secured with Tape Tape -Promogran Chuyita Matter 0 0 Right -Tubular Bandage Single Layer -Size of Tubigrip Used Size E -Size E ($) 1 Left -Tubular Bandage Single Layer -Size of Tubigrip Used Size E -Size E ($) 1 Pain Scale: 0-10 Numeric Is Patient Pain Free? Yes Yes Yes WC - Visit Discharge Discharge Condition Stable Stable Stable Ambulatory Status Ambulatory Ambulatory Walker Transportation Private Auto Private Auto Private Auto Accompanied by aid aid Medication Reconcilliation completed & Yes Yes No provided to patient/care provider Clinical Summary of Care Provided Yes Yes No Additional Wound Wound debrided: Left plantar hallux Laterality: Left Wound Grade/Stage: Russell stage I Type of Debridement: Excisional debridement Anesthesia Used: 4% Lidocaine Solution Depth: Down to and including healthy tissue Percentage of wound debrided: 100 Instrument Used: - (#313 blade) Tissue Removed: Fibrous, devitalized subcutaneous, biofilm, slough Severity: Fat Layer Exposed Amount of bleeding with debridement: Mild Bleeding Controlled with: Compression and gauze Patient tolerated procedure: Patient tolerated procedure well Additional Wound Wound debrided: Right lateral ankle Laterality: Right Wound Grade/Stage: Russell stage I Anesthesia Used: 4% Lidocaine Solution Depth: in the subcutaneous layer Percentage of wound debrided: 100 Instrument Used: - (1 mm curette) Tissue Removed: Fibrous, devitalized subcutaneous, biofilm, slough Severity: Fat Layer Exposed Amount of bleeding with debridement: Mild Bleeding Controlled with: Compression and gauze Patient tolerated procedure: Patient tolerated procedure well Assessment/Plan Assessment/Plan (1) Non-pressure chronic ulcer of left calf with fat layer exposed: CODE(S): L97.222 - Non-pressure chronic ulcer of left calf with fat layer exposed (2) Non-pressure chronic ulcer of right calf with fat layer exposed: CODE(S): L97.212 - Non-pressure chronic ulcer of right calf with fat layer exposed (3) Non-pressure chronic ulcer of right ankle with fat layer exposed: CODE(S): L97.312 - Non-pressure chronic ulcer of right ankle with fat layer exposed (4) Non-pressure 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: CODE(S): L97.522 - Non-pressure 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 (5) Varicose veins of left lower extremity with ulcer of calf: CODE(S): I83.022 - Varicose veins of left lower extremity with ulcer of calf (6) Chronic venous insufficiency: (7) Leg edema, left: CODE(S): R60.0 - Localized edema (8) COPD (chronic obstructive pulmonary disease): CODE(S): J44.9 - Chronic obstructive pulmonary disease, unspecified (9) Edema leg: CODE(S): R60.0 - Localized edema (10) Spinal stenosis: CODE(S): M48.00 - Spinal stenosis, site unspecified (11) Back pain: CODE(S): M54.9 - Dorsalgia, unspecified PLAN: This is an 86-year-old female with history of COPD and spinal stenosis who presents to the wound care clinic for follow-up of left lower extremity anterior ulceration secondary to chronic venous insufficiency. She also has a left medial hallux IPJ ulceration secondary to decreased range of motion at the first metatarsophalangeal joint due to end-stage arthritis. She had venous studies performed confirming reflux of the left great saphenous vein with no deep venous thrombosis bilaterally. I discussed her case today with her. Right lateral leg and medial leg ulcerations remain healed. 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 Right lateral ankle wound continues to show progression with reduction in size with no localized signs of infection. This ulcerative site is nearing closure. Ulceration site left lower extremity and right lower extremity, Russell stage I, was debrided sharply with a 1 mm curette as stated above in clinical panel. Ulceration sites are continuing to show progression with continued decrease in size. Ulceration site demonstrates no localized signs of infection. She has a new pressure ulcer grade 0 to the lateral aspect of the fifth metatarsal head of the left foot, we will continue to monitor the site for any changes. She is instructed to wear shoes that do not rub the site until her protective shoes and inserts arrive. I debrided the left hallux medial IPJ hyperkeratotic tissue with a #313 blade as stated in the clinical panel above. Ulceration site demonstrates no localized signs of infection. Left hallux ulceration site is showing progression and decreasing in size overall with evidence of new skin formation across the wound bed, but still has callus buildup about the site. This wound is continuing to near closure, but continued pressure reduction is essential. She continues to offload the first metatarsophalangeal joint and hallux with an offloading pad to the plantar first metatarsal head. She is continuing to demonstrate good progression overall with reduction of ulcerative sizes. Ulceration sites dressed with Chuyita, dry sterile dressing, and double Tubigrip applied to the bilateral lower extremities. Hallux ulceration site was dressed with Chuyita, 2 x 2 gauze, Webril cotton padding and an offloading pad to the first metatarsophalangeal joint. I discussed continued offloading of the hallux ulceration site with felt pads & surgical shoe. She has ordered protective shoes and inserts and is still awaiting arrival of shoes. Patient to continue to elevate lower extremities in addition to wearing her Tubigrip compression stockings bilateral to aid in edema control. I discussed with her that she is to continue to elevate her feet at times of rest and dorsiflex and plantarflex her foot a few times to aid in venous return by utilization of her calf muscle. Patient voices understanding of this. I reviewed and discussed her case today. Debridement was performed today as noted in the clinical panel to all of the ulcer sites. The following work up and care recommendations were made: Dressing: Chuyita anterior left leg and right leg; Chuyita right ankle lateral and medial; Chuyita left hallux, 2 x 2 gauze, cotton, Coban and an offloading pad to the first metatarsophalangeal joint Wash: Soap and water Tissue growth optimization: Chuyita Offload: Offloading dressing of the first metatarsophalangeal joint and left hallux Vascular: Vascular status intact with palpable pedal pulses Edema: Elevation of the left lower extremity and right lower extremity control to control edema. Patient instructed to wear double Tubigrip stockings Infection: No localized signs of infection Pain: May take [id number] Tylenol, safe oral anti-inflammatory use discussed. Host factors: Chronic venous insufficiency I answered all the patient's questions. To return to the wound healing center in 1 week or call sooner if the patient has any questions or concerns. Note: [employer] speech recognition funeral planner software was used to create portions of this document. Sound-alike and misspelled words, as well as other funeral planner errors may be contained in the documentation.
== END 2021-11-22 23:59 | disposition home or self-care (01) ==
LOC: WC 10:00
PROVIDERS: PCP Family Medicine; Visit Provider Student in an Organized Health Care Education/Training Program
DX: L97.222 Non-pressure chronic ulcer of left calf with fat layer exposed (principal); L97.212 Non-pressure chronic ulcer of right calf with fat layer exposed; L97.522 Non-pressure 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; L97.312 Non-pressure chronic ulcer of right ankle with fat layer exposed; I83.022 Varicose veins of left lower extremity with ulcer of calf; J44.9 Chronic obstructive pulmonary disease, unspecified; R60.0 Localized edema; I87.2 Venous insufficiency (chronic) (peripheral); M48.00 Spinal stenosis, site unspecified; M54.9 Dorsalgia, unspecified
CPT/HCPCS: 11042

== ENCOUNTER 2021-12-18 10:15 | Outpatient (RCR) | payer MEDICARE, OTHER, SELFPAY ==
[2021-11-23 00:33] VITALS: BP 144/50; PULSE 83; RESP 18; TEMP 36.5; BMI 25.7
[2021-11-27 11:03] VITALS: RESP 18; TEMP 36.4; BMI 25.7
--- NOTE | 2021-11-27 12:14 | PN.PCM_ITS ---
History of Present Illness Date of Service: 11/27/21 Chief Complaint: Left leg swelling and left anterior leg ulceration, left hallux plantar wound History of Wound: Patient has been treated with Chuyita to both ulceration sites and an offloading pad to the left hallux. Subjective Subjective This 86-year-old female presents for follow-up to the wound care center for a left lower extremity ulceration, left hallux ulceration, and right lateral ankle ulceration. She denies any constitutional symptoms today. She is present with her assistant gm of content & delivery today who is continuing to aid in her care with dressing changes daily. They feel that her wounds have made good progress and have healed up today. She states that she recently fell skinning both of her knees. She has no other complaints today. Objective Data Objective Data Vital Signs: Vital Signs Temp Pulse Resp BP 97.5 F L 83 18 144/50 H 11/27/21 11:03 11/23/21 00:33 11/27/21 11:03 11/23/21 00:33 Weight: 70.307 kg Body Mass Index (BMI) 25.7 Physical Exam Const alert, oriented x3 and no apparent distress General Appearance: cooperative and comfortable HEENT normocephalic Eyes General Eye: normal appearance of both eyes Neck General: normal visual inspection Lymph Lymphatic: no lymphadenopathy noted and no lymphedema noted Resp normal respiratory effort Cardio regular rate and regular rhythm Extremity normal capillary refill Left Lower Extremity: foot and digits Positive for ROM (Decreased range of motion secondary to 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 Left lower extremity ulceration anterior leg is healed today. No signs of infection. Left hallux sub-IPJ ulceration demonstrates healthy granular base with surrounding hyperkeratotic tissue. No signs of infection to the left hallux. Right lower extremity lateral ankle ulceration is healed today. No localized signs of infection. Neuro oriented x3 and moves all extremities Motor Exam: strength 5/5 throughout Debridement Note Debridement Note Wound debrided: Left plantar hallux Laterality: Left Wound Grade/Stage: Russell stage I Type of Debridement: Excisional debridement Anesthesia Used: 4% Lidocaine Solution Depth: Down to and including healthy tissue and in the subcutaneous layer Percentage of wound debrided: 100 Instrument Used: - (# 313 blade) Tissue Removed: Fibrous, devitalized subcutaneous, biofilm, slough Severity: Fat Layer Exposed Amount of bleeding with debridement: Mild Bleeding Controlled with: Compression and gauze Patient tolerated procedure: Patient tolerated procedure well Post-Debridement Measurements and Additional Note: Post-Debridement Measurements/Treatment - Nurse 1 - General Ulcer Assessment Start: 11/27/21 11:03 Freq: Status: Active Protocol: ALEX Activity Type Activity Date Activity User E-Sign Co-Sign Detail Recorded Client Recorded Date Recorded By Document 11/27/21 11:03 DARIO [id number] 11/27/21 11:15 DARIO 11/27/21 11:03 - Today's Visit Information Type of service Follow-up Visit (Physician/[employer]IQUE [employer]OR ) Arrival Mode Cane Transfer Assistance None Patient Identification Verified (Name & No ) Patient Requires Transmission-Based No Precautions Safety Precautions NA Height and Weight Body Mass Index (BMI) 25.7 BMI Classification Overweight Vital Signs Temperature (97.8 F-99.1 F) 97.5 F L Temperature Source Temporal Respiratory Rate (12-18) 18 History Since Last Visit- (Skip if this is Patient's initial visit) Have you changed medications since your No last visit? Any new allergies or adverse reactions No Had a fall/change in ADL's that may No increase risk of falls Signs or symptoms of abuse and/or No neglect since last visit Have you been in the hospital since your No last visit? Has dressing in place as prescribed Yes Has compression in place as prescribed Yes Has offloadiing in place as prescribed Yes Experienced any changes in pain level or No management Pain Scale: 0-10 Numeric Is Patient Pain Free? Yes - Nurse 1 - General Ulcer Measurement Start: 11/27/21 11:03 Freq: Status: Active Protocol: Activity Type Activity Date Activity User E-Sign Co-Sign Detail Recorded Client Recorded Date Recorded By Document 11/27/21 11:03 DARIO [id number] 11/27/21 11:15 PL 11/27/21 11:03 Wound Center Nurse 1 #2 Left Gr Toe -Combined with other wound No -Current Size (cm) - Length 0.1 -Current Size (cm) - Width 0.1 -Current Size (cm) - Depth 0.1 -Total Square Cm 0.01 -Photo Taken No -Epithelialization Medium 34-66% -Tunneling No -Undermining/Tunneling No -Circular Undermining No -Exudate Amt Small -Exudate Type Serosanguineous -Granulation Amt Medium (34-66%) -Granulation Quality Pale -Slough/Fibrin Yes -Necrosis Amt Medium (34-66%) -Necrotic Tissue Type Adherent Slough #3 left anterior leg -Combined with other wound No -Current Size (cm) - Length 0.1 -Current Size (cm) - Width 0.1 -Current Size (cm) - Depth 0.1 -Total Square Cm 0.01 -Photo Taken No Assessment/Plan Assessment/Plan (1) Non-pressure chronic ulcer of left calf with fat layer exposed: CODE(S): L97.222 - Non-pressure chronic ulcer of left calf with fat layer exposed (2) Non-pressure chronic ulcer of right calf with fat layer exposed: CODE(S): L97.212 - Non-pressure chronic ulcer of right calf with fat layer exposed (3) Non-pressure chronic ulcer of right ankle with fat layer exposed: CODE(S): L97.312 - Non-pressure chronic ulcer of right ankle with fat layer exposed (4) Non-pressure 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: CODE(S): L97.522 - Non-pressure 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 (5) Varicose veins of left lower extremity with ulcer of calf: CODE(S): I83.022 - Varicose veins of left lower extremity with ulcer of calf (6) Chronic venous insufficiency: (7) Leg edema, left: CODE(S): R60.0 - Localized edema (8) COPD (chronic obstructive pulmonary disease): CODE(S): J44.9 - Chronic obstructive pulmonary disease, unspecified (9) Edema leg: CODE(S): R60.0 - Localized edema PLAN: This is an 86-year-old female with history of COPD and spinal stenosis who presents to the wound care clinic for follow-up of left lower extremity anterior ulceration secondary to chronic venous insufficiency. She also has a left medial hallux IPJ ulceration secondary to decreased range of motion at the first metatarsophalangeal joint due to end-stage arthritis. She had venous studies performed confirming reflux of the left great saphenous vein with no deep venous thrombosis bilaterally. I discussed her case today with her. Right lateral leg and medial leg ulcerations remain healed. Left anterior lower extremity ulceration healed today with no signs of infection. Right lateral ankle wound healed today with no signs of infection. 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 Grade 0 pressure ulceration to the lateral aspect of the fifth metatarsal head of the left foot, this has improved since last visit. She is instructed to wear shoes that do not rub the site until her protective shoes and inserts arrive. Superficial abrasions to bilateral knees demonstrate no signs of infection. Sites are stable with eschar covering. I debrided the left hallux medial IPJ hyperkeratotic tissue with a #313 blade as stated in the clinical panel above. Ulceration site demonstrates no localized signs of infection. Left hallux ulceration site is showing progression and decreasing in size overall with evidence of new skin formation across the wound bed, but still has callus buildup about the site. This wound is continuing to near closure, but continued pressure reduction is essential. She continues to offload the first metatarsophalangeal joint and hallux with an offloading pad to the plantar first metatarsal head. She is continuing to demonstrate good progression with multiple ulcerative sites that have healed today. Hallux ulceration site was dressed with Chuyita, 2 x 2 gauze, Webril cotton padding and an offloading pad to the first metatarsophalangeal joint. I discussed continued offloading of the hallux ulceration site with felt pads & surgical shoe. She has ordered protective shoes and inserts and is still awaiting arrival of shoes. Patient to continue to elevate lower extremities in addition to wearing her Tubigrip compression stockings bilateral to aid in edema control. I discussed with her that she is to continue to elevate her feet at times of rest and dorsiflex and plantarflex her foot a few times to aid in venous return by utilization of her calf muscle. Patient voices understanding of this. I reviewed and discussed her case today. Debridement was performed today as noted in the clinical panel to all of the ulcer sites. The following work up and care recommendations were made: Dressing: Chuyita left hallux, 2 x 2 gauze, cotton, Coban and an offloading pad to the first metatarsophalangeal joint Wash: Soap and water Tissue growth optimization: Chuyita Offload: Offloading dressing of the first metatarsophalangeal joint and left hallux Vascular: Vascular status intact with palpable pedal pulses Edema: Elevation of the left lower extremity and right lower extremity control to control edema. Patient instructed to wear double Tubigrip stockings Infection: No localized signs of infection Pain: May take [id number] Tylenol, safe oral anti-inflammatory use discussed. Host factors: Chronic venous insufficiency I answered all the patient's questions. To return to the wound healing center in 1 week or call sooner if the patient has any questions or concerns. Note: [employer] speech recognition pharmaceutical service representative software was used to create portions of this document. Sound-alike and misspelled words, as well as other pharmaceutical service representative errors may be contained in the documentation.
[2021-12-04 10:36] VITALS: BP 149/72; PULSE 88; TEMP 36.1; BMI 25.7
--- NOTE | 2021-12-04 12:26 | PCM.WC.PN ---
History of Present Illness Date of Service: 12/04/21 Chief Complaint: Left leg swelling and left anterior leg ulceration, left hallux plantar wound History of Wound: Patient has been treated with Chuyita to both ulceration sites and an offloading pad to the left hallux. Subjective Subjective This 86-year-old female presents for follow-up to the wound care center for a left plantar hallux ulceration. She denies any constitutional symptoms today. 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 She has no other complaints today. Objective Data Objective Data Vital Signs: Vital Signs Temp Pulse Resp BP 96.9 F L 88 18 149/72 H 12/04/21 10:36 12/04/21 10:36 11/27/21 11:03 12/04/21 10:36 Weight: 70.307 kg Body Mass Index (BMI) 25.7 Physical Exam Const alert, oriented x3 and no apparent distress General Appearance: cooperative and comfortable HEENT normocephalic Eyes General Eye: normal appearance of both eyes Neck General: normal visual inspection Lymph Lymphatic: no lymphadenopathy noted and no lymphedema noted Resp normal respiratory effort Cardio regular rate and regular rhythm Extremity normal capillary refill Left Lower Extremity: foot and digits Positive for ROM (Decreased range of motion secondary to 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 Left lower extremity ulceration anterior leg is healed. No signs of infection. Left hallux sub-IPJ ulceration demonstrates healthy granular base with surrounding hyperkeratotic tissue. No signs of infection to the left hallux. Right lower extremity lateral ankle ulceration is healed. No localized signs of infection. Neuro oriented x3 and moves all extremities Motor Exam: strength 5/5 throughout Debridement Note Debridement Note Wound debrided: Plantar medial hallux Laterality: Left Wound Grade/Stage: Russell stage I Type of Debridement: Excisional debridement Anesthesia Used: 5% Lidocaine Gel Depth: Down to and including healthy tissue and in the subcutaneous layer Percentage of wound debrided: 100 Instrument Used: - (#313 blade) Tissue Removed: Fibrous, devitalized subcutaneous, biofilm, slough Severity: Fat Layer Exposed Amount of bleeding with debridement: Mild Bleeding Controlled with: Compression and gauze Patient tolerated procedure: Patient tolerated procedure well Post-Debridement Measurements and Additional Note: Post-Debridement Measurements/Treatment BRAN - Nurse 1 - General Ulcer Assessment Start: 11/27/21 11:03 Freq: Status: Active Protocol: ALEX Activity Type Activity Date Activity User E-Sign Co-Sign Detail Recorded Client Recorded Date Recorded By Document 11/27/21 11:03 PL [id number] 11/27/21 11:15 PL Document 12/04/21 10:36 AK [id number] 12/04/21 10:38 AK 11/27/21 12/04/21 11:03 10:36 WC - Today's Visit Information Type of service Follow-up Visit Follow-up Visit (Physician/INSTALLATION AND REPAIR TECHNICIAN (Physician/INSTALLATION AND REPAIR TECHNICIAN ) ) Arrival Mode Cane Ambulatory,Cane Transfer Assistance None Patient Identification Verified (Name & No Yes ) Patient Requires Transmission-Based No No Precautions Safety Precautions NA NA Height and Weight Body Mass Index (BMI) 25.7 25.7 BMI Classification Overweight Overweight Vital Signs Temperature (97.8 F-99.1 F) 97.5 F L 96.9 F L Temperature Source Temporal Temporal Pulse Rate (60-100) 88 Pulse Location Monitor Respiratory Rate (12-18) 18 Blood Pressure (90/60-120/80) 149/72 H Blood Pressure Mean (mm Hg) 97 Source Monitor History Since Last Visit- (Skip if this is Patient's initial visit) Have you changed medications since your No No last visit? Any new allergies or adverse reactions No No Had a fall/change in ADL's that may No No increase risk of falls Signs or symptoms of abuse and/or No No neglect since last visit Have you been in the hospital since your No No last visit? Has dressing in place as prescribed Yes Yes Has compression in place as prescribed Yes N/A Has offloadiing in place as prescribed Yes N/A Experienced any changes in pain level or No No management Left Footwear Regular Shoe Right Footwear Regular Shoe Pain Scale: 0-10 Numeric Is Patient Pain Free? Yes Yes BRAN Claudio Nurse 1 - General Ulcer Measurement Start: 11/27/21 11:03 Freq: Status: Active Protocol: Activity Type Activity Date Activity User E-Sign Co-Sign Detail Recorded Client Recorded Date Recorded By Document 11/27/21 11:03 PL [id number] 11/27/21 11:15 PL Document 12/04/21 10:36 AK [id number] 12/04/21 10:38 AK 11/27/21 12/04/21 11:03 10:36 Wound Center Nurse 1 #2 Left Gr Toe -Combined with other wound No No -Current Size (cm) - Length 0.1 0.2 -Current Size (cm) - Width 0.1 0.6 -Current Size (cm) - Depth 0.1 0.1 -Total Square Cm 0.01 0.12 -Photo Taken No No -Epithelialization Medium 34-66% -Tunneling No No -Undermining/Tunneling No No -Circular Undermining No No -Change in Wound Grade/Stage No -Exudate Amt Small Small -Exudate Type Serosanguineous Serosanguineous -Wound Margin Distinct, Outline Attached -Granulation Amt Medium (34-66%) None Present (0 %) -Granulation Quality Pale N/A -Slough/Fibrin Yes Yes -Necrosis Amt Medium (34-66%) Small (1-33%) -Necrotic Tissue Type Adherent Slough Adherent Slough -Structure Exposed N/A -Texture (Vangie-wound Skin Appearance) Assessed,Callus -Moisture (Vangie-wound Skin Appearance) Assessed,Dry/ Scaly -Color (Vangie-wound Skin Appearance) No Abnormality, Assessed -Temperature (Vangie-wound Skin No Abnormality Appearance) (Pt Warm) -Tenderness on Palpation (Vangie-wound No Skin Appearance) -Ulcer Cleansing Rinsed/ Irrigated with Saline -Foul Odor after Cleansing No -Anesthetic Used 4% Lidocaine Solution #3 left anterior leg -Combined with other wound No -Current Size (cm) - Length 0.1 -Current Size (cm) - Width 0.1 -Current Size (cm) - Depth 0.1 -Total Square Cm 0.01 -Photo Taken No Lower Limb Edema Present No WC - Nurse 2 - General Ulcer CM Notes Start: 11/27/21 11:03 Freq: Status: Active Protocol: Activity Type Activity Date Activity User E-Sign Co-Sign Detail Recorded Client Recorded Date Recorded By Document 11/27/21 13:35 PL [id number] 11/27/21 13:36 PL Document 12/04/21 11:21 JF [id number] 12/04/21 11:24 JF Document 12/04/21 11:43 MW [id number] 12/04/21 11:47 MW 11/27/21 12/04/21 12/04/21 13:35 11:21 11:43 Wound Center Nurse 2 #8 LEFT KNEE -Time 11:44 -Correct Patient Yes -Correct Side, Site, Position Yes -Correct Procedure Yes -Procedure Performed Yes -Type of Procedure Debridement -Clinical Debridement Subcutaneous -Tissue Removed Subcutaneous -Post Debridement (cm) - Length 3.5 -Post Debridement (cm) - Width 2.8 -Post Debridement (cm) - Depth 0.2 -Total Square (Post) (cm) 9.80 -Area of Debridement (cm) - Length 3.5 -Area of Debridement (cm) - Width 2.8 -Total Square (Area) (cm) 9.80 -Tunneling No -Undermining/Tunneling No -Circular Undermining No -Wound/Ulcer Outcome Not Healed -Ulcer Cleansing Rinsed/ Irrigated with Saline -Foul Odor after Cleansing No -Bioengineered Tissue No -Bleeding Controlled with Pressure -Treatment Response Procedure Tolerated Well -Offloading No -Debridement - Subq, 1st 20sq cm No #7 RIGHT KNEE -Time 11:44 -Correct Patient Yes -Correct Side, Site, Position Yes -Correct Procedure Yes -Procedure Performed Yes -Type of Procedure Debridement -Clinical Debridement Subcutaneous -Tissue Removed Subcutaneous -Post Debridement (cm) - Length 2.0 -Post Debridement (cm) - Width 1.0 -Post Debridement (cm) - Depth 0.1 -Total Square (Post) (cm) 2.00 -Area of Debridement (cm) - Length 2.0 -Area of Debridement (cm) - Width 1.0 -Total Square (Area) (cm) 2.00 -Tunneling No -Undermining/Tunneling No -Circular Undermining No -Wound/Ulcer Outcome Not Healed -Ulcer Cleansing Rinsed/ Irrigated with Saline -Foul Odor after Cleansing No -Bioengineered Tissue No -Bleeding Controlled with Pressure -Treatment Response Procedure Tolerated Well -Offloading No -Debridement - Subq, 1st 20sq cm Yes #2 Left Gr Toe -Time 11:25 11:21 -Correct Patient Yes Yes -Correct Side, Site, Position Yes Yes -Correct Procedure Yes Yes -Procedure Performed Yes Yes -Type of Procedure Debridement Debridement -Clinical Debridement Subcutaneous Subcutaneous -Tissue Removed Subcutaneous Subcutaneous -Post Debridement (cm) - Length 0.1 0.3 -Post Debridement (cm) - Width 0.1 1.0 -Post Debridement (cm) - Depth 0.1 0.1 -Total Square (Post) (cm) 0.01 0.30 -Area of Debridement (cm) - Length 0.1 0.3 -Area of Debridement (cm) - Width 0.1 1.0 -Total Square (Area) (cm) 0.01 0.30 -Tunneling No No -Undermining/Tunneling No No -Circular Undermining No No -Wound/Ulcer Outcome Not Healed Not Healed -Ulcer Cleansing Rinsed/ Rinsed/ Irrigated with Irrigated with Saline Saline -Foul Odor after Cleansing No No -Bioengineered Tissue No No -Bleeding Controlled with Pressure Pressure -Treatment Response Procedure Procedure Tolerated Well Tolerated Well -Offloading No -Debridement - Subq, 1st 20sq cm Yes Yes #3 left anterior leg -Procedure Performed No -Wound/Ulcer Outcome Healed- Epithelialized Pain Scale: 0-10 Numeric Is Patient Pain Free? Yes Yes Yes WC - Nurse 3 - General Ulcer D/C NN Start: 11/27/21 11:03 Freq: Status: Active Protocol: Activity Type Activity Date Activity User E-Sign Co-Sign Detail Recorded Client Recorded Date Recorded By Document 11/27/21 12:37 MAC [id number] 11/27/21 12:39 VA Document 12/04/21 12:02 MAC [id number] 12/04/21 12:04 VA 11/27/21 12/04/21 12:37 12:02 Wound Care Nurse 3 #8 LEFT KNEE -Ulcer Cleansing Rinsed/ Irrigated with Saline -Foul Odor after Cleansing No -Negative Pressure Wound Therapy N/A -Primary Dressing Applied Mepilex Border, NonAdherent Contact Layer, Promogran Chuyita Matter -Mepilex Border 2 -Promogran Chy[place]a Matter 1 #7 RIGHT KNEE -Ulcer Cleansing Rinsed/ Irrigated with Saline -Foul Odor after Cleansing No -Negative Pressure Wound Therapy N/A -Primary Dressing Applied Mepilex Border, NonAdherent Contact Layer, Promogran -Mepilex Border 2 -Promogran 0 -Promogran Chuyita Matter 0 #2 Left Gr Toe -Ulcer Cleansing Rinsed/ Rinsed/ Irrigated with Irrigated with Saline Saline -Foul Odor after Cleansing No No -Negative Pressure Wound Therapy N/A N/A -Primary Dressing Applied NonAdherent Promogran Contact Layer, Promogran Chuyita Matter -Primary Dressing Covered/Secured with Dry Gauze, Dry Gauze, Secured with Secured with Tape Tape -Promogran 0 -Promogran Chuyita Matter 1 Left -Lotion applied to leg before No compression wrap -Other own tubi-s Pain Scale: 0-10 Numeric Is Patient Pain Free? Yes Yes WC - Visit Discharge Discharge Condition Stable Stable Ambulatory Status Ambulatory,Cane Ambulatory,Cane Transportation Private Auto Private Auto Accompanied by aid Medication Reconcilliation completed & Yes Yes provided to patient/care provider Clinical Summary of Care Provided Yes Yes Assessment/Plan Assessment/Plan (1) Non-pressure chronic ulcer of left calf with fat layer exposed: CODE(S): L97.222 - Non-pressure chronic ulcer of left calf with fat layer exposed (2) Non-pressure chronic ulcer of right calf with fat layer exposed: CODE(S): L97.212 - Non-pressure chronic ulcer of right calf with fat layer exposed (3) Non-pressure chronic ulcer of right ankle with fat layer exposed: CODE(S): L97.312 - Non-pressure chronic ulcer of right ankle with fat layer exposed (4) Non-pressure 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: CODE(S): L97.522 - Non-pressure 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 (5) Varicose veins of left lower extremity with ulcer of calf: CODE(S): I83.022 - Varicose veins of left lower extremity with ulcer of calf (6) Chronic venous insufficiency: (7) Leg edema, left: CODE(S): R60.0 - Localized edema (8) COPD (chronic obstructive pulmonary disease): CODE(S): J44.9 - Chronic obstructive pulmonary disease, unspecified (9) Edema leg: CODE(S): R60.0 - Localized edema PLAN: This is an 86-year-old female with history of COPD and spinal stenosis who presents to the wound care clinic for follow-up left medial hallux IPJ ulceration secondary to decreased range of motion at the first metatarsophalangeal joint due to end-stage arthritis. I discussed her case today with her. Right lateral leg and medial leg ulcerations remain healed. Left anterior lower extremity ulceration remains healed. No signs of infection. Right lateral ankle wound healed. No signs of infection. 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 Superficial abrasions to bilateral knees demonstrate no signs of infection. I debrided the left hallux medial IPJ hyperkeratotic tissue with a #313 blade as stated in the clinical panel above. Ulceration site demonstrates no localized signs of infection. Left hallux ulceration site is showing progression and decreasing in size overall with evidence of new skin formation across the wound bed, but still has callus buildup about the site. This wound is continuing to near closure, but continued pressure reduction is essential. She continues to offload the first metatarsophalangeal joint and hallux with an offloading pad to the plantar first metatarsal head. She is continuing to demonstrate good progression with multiple ulcerative sites that have healed today. Hallux ulceration site was dressed with Chuyita, 2 x 2 gauze, Webril cotton padding and an offloading pad to the first metatarsophalangeal joint. I discussed continued offloading of the hallux ulceration site with felt pads & surgical shoe. Her shoes and protective inserts have arrived and she will pick these up. I will place offloading pad to the underside of her protective insert at next visit to offload the hallux. Patient to continue to elevate lower extremities in addition to wearing her Tubigrip compression stockings bilateral to aid in edema control. I discussed with her that she is to continue to elevate her feet at times of rest and dorsiflex and plantarflex her foot a few times to aid in venous return by utilization of her calf muscle. Patient voices understanding of this. I reviewed and discussed her case today. Debridement was performed today as noted in the clinical panel to all of the ulcer sites. The following work up and care recommendations were made: Dressing: Chuyita left hallux, 2 x 2 gauze, cotton, Coban and an offloading pad to the first metatarsophalangeal joint Wash: Soap and water Tissue growth optimization: Chuyita Offload: Offloading dressing of the first metatarsophalangeal joint and left hallux Vascular: Vascular status intact with palpable pedal pulses. She had venous studies performed confirming reflux of the left great saphenous vein with no deep venous thrombosis bilaterally. Edema: Elevation of the left lower extremity and right lower extremity control to control edema. Patient instructed to wear double Tubigrip stockings Infection: No localized signs of infection Pain: May take [id number] Tylenol, safe oral anti-inflammatory use discussed. Host factors: Chronic venous insufficiency I answered all the patient's questions. To return to the wound healing center in 1 week or call sooner if the patient has any questions or concerns. Note: [employer] speech recognition advertising columnist software was used to create portions of this document. Sound-alike and misspelled words, as well as other advertising columnist errors may be contained in the documentation.
--- NOTE | 2021-12-04 12:30 | HP.PCM_ITS ---
History of Present Illness Date of Service: 12/04/21 Chief Complaint: Bilateral knee wound History of Wound: Ms. Castro is an 86-year-old who is currently being seen for below knee ulcers however I was asked to see due to nonhealing bilateral knee wound. Said to have been sustained about 2 weeks ago when she fell on her knees. Initially had apply Chuyita to the area however, worsening was noted this week. She states that there has been a lot of rubbing underneath her clothing and so dressing has not stayed on adequately. She feels well. Denies chills, fever or feeling of unwell. [facility] Medical History (Updated 12/04/21 @ 12:[address] Tee Feldman MD) Unspecified open wound, left knee, initial encounter Unspecified open wound, right knee, initial encounter Home Medications aspirin 81 mg PO DAILY@0800 11/03/16 [History Last Taken Unknown] calcium carbonate 250 mg PO BID 11/03/16 [History Last Taken Unknown] fluticasone propion-salmeterol [Advair 100-50 Diskus] 1 ea IH BID 11/03/16 [Hi story Last Taken Unknown] hydroxychloroquine 200 mg PO BIDCM 11/03/16 [History Last Taken Unknown] lactobacillus comb no.10 [Probiotic] 1 ea PO DAILY 11/03/16 [History Last Taken Unknown] magnesium 250 mg PO BID 11/03/16 [History Last Taken Unknown] jwfluqoi-rba-PJ-lycopen-lutein [Centrum Silver Tablet] 1 ea PO DAILY 11/03/16 [History Last Taken Unknown] omeprazole 20 mg PO DAILY 11/03/16 [History Last Taken Unknown] polyethylene glycol 3350 17 g PO DAILY 11/03/16 [History Last Taken Unknown] pramipexole 0.5 mg PO BID 11/03/16 [History Last Taken Unknown] simvastatin 20 mg PO QHS 11/03/16 [History Last Taken Unknown] tiotropium bromide [Spiriva] 18 mcg IH DAILY 11/03/16 [History Last Taken Unknown] tramadol [Ultram] 50 mg PO PRN PRN 11/03/16 [History Last Taken Unknown] trazodone 50 mg PO QHS 11/03/16 [History Last Taken Unknown] Allergy/AdvReac Type Severity Reaction Status Date / Time Sulfa (Sulfonamide Allergy Hives Verified 11/03/16 14:06 Antibiotics) Social History Smoking Status: Former smoker ROS Constitutional Constitutional: Denies change in weight, chills, daytime sleepiness, difficulty sleeping, excessive sweating, lethargy or malaise Eyes Eyes: Denies blind spots, bloody eye, blurry vision, change in eye color, change in vision or diplopia ENT HEENT: Denies change in voice, dental pain, disequillibrium, dizziness, ear pain, foreign body in nose, halitosis or mouth lesions Cardiovascular Cardiovascular: Denies abdominal pain, arrhythmia on telemetry, bluish discoloration of hand/feet, chest pain at rest, claudication or clubbing Respiratory/Chest Respiratory/Chest: Denies change in phlegm color, chest congestion, chest tightness, cough, difficulty clearing secretions or dusky skin Gastrointestinal Gastrointestinal: Denies belching, bloating, change in bowel habits, change in stool character, dyspepsia or dysphagia Genitourinary Genitourinary: Denies abdominal discomfort, flank pain, genital lesions, genital pain or hematuria Musculoskeletal Musculoskeletal: Denies difficulty walking, muscle cramps, muscle spasms, muscle weakness, tingling or tremors Integumentary Integumentary: Denies change in pigmentation, changing lesions, jaundice, lesions, nail changes, new lesions or non-healing lesions Neurologic Neurologic: Denies abnormal speech, behavior changes, convulsions, disequilibrium, dizziness, focal weakness or frequent falls Psychiatric Psychiatric: Denies change in appetite, cognitive impairment, confusion, depression, difficulty concentrating or hallucinations Endocrine Endocrinology: Denies cold intolerance, deepening of the voice, excessive sweating, fatigue, flushing or increase in ring/shoe/hat size Hematologic/Lymphatic Hematologic/Lymphatic: Denies easy bleeding, easy bruising or lymphadenopathy Allergic/Immunologic Allergic/Immunologic: Denies itchy eyes, lip swelling, seasonal rhinorrhea, rhinitis, throat swelling or tongue swelling Vital Signs Vital Signs Vital Signs: 12/04/21 10:36 Temperature 96.9 F L Temperature Source Temporal Pulse Rate 88 Blood Pressure 149/72 H Blood Pressure Mean 97 Blood Pressure Source Monitor Weight Weight: 155 lb Body Mass Index (BMI) 25.7 Physical Exam Const alert, oriented x3 and no apparent distress General Appearance: cooperative, comfortable and well kempt Orientation / Consciousness: awake, oriented to person and oriented to place HEENT normocephalic and head/scalp atraumatic Head and Scalp: normal to inspection Eyes EOMs intact bilaterally General Eye: normal appearance of both eyes Neck full ROM General: normal visual inspection Resp normal respiratory effort Effort and Inspection: able to speak in complete sentences Extremity full ROM General Extremity: edema Skin Wounds: wounds noted Neuro oriented x3, CN's II-XII intact bilaterally and moves all extremities Psych mental status grossly normal Appearance: grossly normal Attitude: calm Activity / Motor Behavior: appropriate eye contact Speech: normal speech Debridement Note Debridement Note Wound debrided: Left knee Type of Debridement: Excisional debridement Anesthesia Used: 4% Lidocaine Solution Depth: Down to and including healthy tissue and in the subcutaneous layer Percentage of wound debrided: 100 Instrument Used: 7mm curette Tissue Removed: Slough and devitalized tissue Severity: Fat Layer Exposed Amount of bleeding with debridement: Mild Bleeding Controlled with: Pressure Patient tolerated procedure: Patient tolerated procedure well Post-Debridement Measurements and Additional Note: Post-Debridement Measurements/Treatment BRAN - Nurse 1 - General Ulcer Assessment Start: 11/27/21 11:03 Freq: Status: Active Protocol: ALEX Activity Type Activity Date Activity User E-Sign Co-Sign Detail Recorded Client Recorded Date Recorded By Document 11/27/21 11:03 DARIO [id number] 11/27/21 11:15 PL Document 12/04/21 10:36 AK [id number] 12/04/21 10:38 AK 11/27/21 12/04/21 11:03 10:36 - Today's Visit Information Type of service Follow-up Visit Follow-up Visit (Physician/CULINARY ARTS INSTRUCTOR (Physician/CULINARY ARTS INSTRUCTOR ) ) Arrival Mode Cane Ambulatory,Cane Transfer Assistance None Patient Identification Verified (Name & No Yes ) Patient Requires Transmission-Based No No Precautions Safety Precautions NA NA Height and Weight Body Mass Index (BMI) 25.7 25.7 BMI Classification Overweight Overweight Vital Signs Temperature (97.8 F-99.1 F) 97.5 F L 96.9 F L Temperature Source Temporal Temporal Pulse Rate (60-100) 88 Pulse Location Monitor Respiratory Rate (12-18) 18 Blood Pressure (90/60-120/80) 149/72 H Blood Pressure Mean 97 Source Monitor History Since Last Visit- (Skip if this is Patient's initial visit) Have you changed medications since your No No last visit? Any new allergies or adverse reactions No No Had a fall/change in ADL's that may No No increase risk of falls Signs or symptoms of abuse and/or No No neglect since last visit Have you been in the hospital since your No No last visit? Has dressing in place as prescribed Yes Yes Has compression in place as prescribed Yes N/A Has offloadiing in place as prescribed Yes N/A Experienced any changes in pain level or No No management Left Footwear Regular Shoe Right Footwear Regular Shoe Pain Scale: 0-10 Numeric Is Patient Pain Free? Yes Yes WC - Nurse 1 - General Ulcer Measurement Start: 11/27/21 11:03 Freq: Status: Active Protocol: Activity Type Activity Date Activity User E-Sign Co-Sign Detail Recorded Client Recorded Date Recorded By Document 11/27/21 11:03 PL [id number] 11/27/21 11:15 PL Document 12/04/21 10:36 AK [id number] 12/04/21 10:38 AK 11/27/21 12/04/21 11:03 10:36 Wound Center Nurse 1 #2 Left Gr Toe -Combined with other wound No No -Current Size (cm) - Length 0.1 0.2 -Current Size (cm) - Width 0.1 0.6 -Current Size (cm) - Depth 0.1 0.1 -Total Square Cm 0.01 0.12 -Photo Taken No No -Epithelialization Medium 34-66% -Tunneling No No -Undermining/Tunneling No No -Circular Undermining No No -Change in Wound Grade/Stage No -Exudate Amt Small Small -Exudate Type Serosanguineous Serosanguineous -Wound Margin Distinct, Outline Attached -Granulation Amt Medium (34-66%) None Present (0 %) -Granulation Quality Pale N/A -Slough/Fibrin Yes Yes -Necrosis Amt Medium (34-66%) Small (1-33%) -Necrotic Tissue Type Adherent Slough Adherent Slough -Structure Exposed N/A -Texture (Vangie-wound Skin Appearance) Assessed,Callus -Moisture (Vangie-wound Skin Appearance) Assessed,Dry/ Scaly -Color (Vangie-wound Skin Appearance) No Abnormality, Assessed -Temperature (Vangie-wound Skin No Abnormality Appearance) (Pt Warm) -Tenderness on Palpation (Vangie-wound No Skin Appearance) -Ulcer Cleansing Rinsed/ Irrigated with Saline -Foul Odor after Cleansing No -Anesthetic Used 4% Lidocaine Solution #3 left anterior leg -Combined with other wound No -Current Size (cm) - Length 0.1 -Current Size (cm) - Width 0.1 -Current Size (cm) - Depth 0.1 -Total Square Cm 0.01 -Photo Taken No Lower Limb Edema Present No WC - Nurse 2 - General Ulcer CM Notes Start: 11/27/21 11:03 Freq: Status: Active Protocol: Activity Type Activity Date Activity User E-Sign Co-Sign Detail Recorded Client Recorded Date Recorded By Document 11/27/21 13:35 PL [id number] 11/27/21 13:36 PL Document 12/04/21 11:21 JF [id number] 12/04/21 11:24 JF Document 12/04/21 11:43 MW [id number] 12/04/21 11:47 MW 11/27/21 12/04/21 12/04/21 13:35 11:21 11:43 Wound Center Nurse 2 #8 LEFT KNEE -Time 11:44 -Correct Patient Yes -Correct Side, Site, Position Yes -Correct Procedure Yes -Procedure Performed Yes -Type of Procedure Debridement -Clinical Debridement Subcutaneous -Tissue Removed Subcutaneous -Post Debridement (cm) - Length 3.5 -Post Debridement (cm) - Width 2.8 -Post Debridement (cm) - Depth 0.2 -Total Square (Post) (cm) 9.80 -Area of Debridement (cm) - Length 3.5 -Area of Debridement (cm) - Width 2.8 -Total Square (Area) (cm) 9.80 -Tunneling No -Undermining/Tunneling No -Circular Undermining No -Wound/Ulcer Outcome Not Healed -Ulcer Cleansing Rinsed/ Irrigated with Saline -Foul Odor after Cleansing No -Bioengineered Tissue No -Bleeding Controlled with Pressure -Treatment Response Procedure Tolerated Well -Offloading No -Debridement - Subq, 1st 20sq cm No #7 RIGHT KNEE -Time 11:44 -Correct Patient Yes -Correct Side, Site, Position Yes -Correct Procedure Yes -Procedure Performed Yes -Type of Procedure Debridement -Clinical Debridement Subcutaneous -Tissue Removed Subcutaneous -Post Debridement (cm) - Length 2.0 -Post Debridement (cm) - Width 1.0 -Post Debridement (cm) - Depth 0.1 -Total Square (Post) (cm) 2.00 -Area of Debridement (cm) - Length 2.0 -Area of Debridement (cm) - Width 1.0 -Total Square (Area) (cm) 2.00 -Tunneling No -Undermining/Tunneling No -Circular Undermining No -Wound/Ulcer Outcome Not Healed -Ulcer Cleansing Rinsed/ Irrigated with Saline -Foul Odor after Cleansing No -Bioengineered Tissue No -Bleeding Controlled with Pressure -Treatment Response Procedure Tolerated Well -Offloading No -Debridement - Subq, 1st 20sq cm Yes #2 Left Gr Toe -Time 11:25 11:21 -Correct Patient Yes Yes -Correct Side, Site, Position Yes Yes -Correct Procedure Yes Yes -Procedure Performed Yes Yes -Type of Procedure Debridement Debridement -Clinical Debridement Subcutaneous Subcutaneous -Tissue Removed Subcutaneous Subcutaneous -Post Debridement (cm) - Length 0.1 0.3 -Post Debridement (cm) - Width 0.1 1.0 -Post Debridement (cm) - Depth 0.1 0.1 -Total Square (Post) (cm) 0.01 0.30 -Area of Debridement (cm) - Length 0.1 0.3 -Area of Debridement (cm) - Width 0.1 1.0 -Total Square (Area) (cm) 0.01 0.30 -Tunneling No No -Undermining/Tunneling No No -Circular Undermining No No -Wound/Ulcer Outcome Not Healed Not Healed -Ulcer Cleansing Rinsed/ Rinsed/ Irrigated with Irrigated with Saline Saline -Foul Odor after Cleansing No No -Bioengineered Tissue No No -Bleeding Controlled with Pressure Pressure -Treatment Response Procedure Procedure Tolerated Well Tolerated Well -Offloading No -Debridement - Subq, 1st 20sq cm Yes Yes #3 left anterior leg -Procedure Performed No -Wound/Ulcer Outcome Healed- Epithelialized Pain Scale: 0-10 Numeric Is Patient Pain Free? Yes Yes Yes WC - Nurse 3 - General Ulcer D/C NN Start: 11/27/21 11:03 Freq: Status: Active Protocol: Activity Type Activity Date Activity User E-Sign Co-Sign Detail Recorded Client Recorded Date Recorded By Document 11/27/21 12:37 MAC [id number] 11/27/21 12:39 AK Document 12/04/21 12:02 AL [id number] 12/04/21 12:04 AK 11/27/21 12/04/21 12:37 12:02 Wound Care Nurse 3 #8 LEFT KNEE -Ulcer Cleansing Rinsed/ Irrigated with Saline -Foul Odor after Cleansing No -Negative Pressure Wound Therapy N/A -Primary Dressing Applied Mepilex Border, NonAdherent Contact Layer, Promogran Chuyita Matter -Mepilex Border 2 -Promogran Chuyita Matter 1 #7 RIGHT KNEE -Ulcer Cleansing Rinsed/ Irrigated with Saline -Foul Odor after Cleansing No -Negative Pressure Wound Therapy N/A -Primary Dressing Applied Mepilex Border, NonAdherent Contact Layer, Promogran -Mepilex Border 2 -Promogran 0 -Promogran Chuyita Matter 0 #2 Left Gr Toe -Ulcer Cleansing Rinsed/ Rinsed/ Irrigated with Irrigated with Saline Saline -Foul Odor after Cleansing No No -Negative Pressure Wound Therapy N/A N/A -Primary Dressing Applied NonAdherent Promogran Contact Layer, Promogran Chuyita Matter -Primary Dressing Covered/Secured with Dry Gauze, Dry Gauze, Secured with Secured with Tape Tape -Promogran 0 -Promogran Chuyita Matter 1 Left -Lotion applied to leg before No compression wrap -Other own tubi-s Pain Scale: 0-10 Numeric Is Patient Pain Free? Yes Yes WC - Visit Discharge Discharge Condition Stable Stable Ambulatory Status Ambulatory,Cane Ambulatory,Cane Transportation Private Auto Private Auto Accompanied by aid Medication Reconcilliation completed & Yes Yes provided to patient/care provider Clinical Summary of Care Provided Yes Yes Additional Wound Wound debrided: Right knee Type of Debridement: Excisional debridement Anesthesia Used: 4% Lidocaine Solution Depth: Down to and including healthy tissue and in the subcutaneous layer Percentage of wound debrided: 100 Instrument Used: 7mm curette Tissue Removed: Slough and devitalized tissue Severity: Fat Layer Exposed Amount of bleeding with debridement: Mild Bleeding Controlled with: Pressure Patient tolerated procedure: Patient tolerated procedure well Charges/Coding Visit Charges Office Visits / Consults: [id number] OV L3 New Procedures Integumentary [id number]: [id number] Lian subq tissue 20 sq cm/< Assessment/Plan Assessment/Plan (1) Unspecified open wound, left knee, initial encounter: CODE(S): S81.002A - Unspecified open wound, left knee, initial encounter (2) Unspecified open wound, right knee, initial encounter: CODE(S): S81.001A - Unspecified open wound, right knee, initial encounter (3) Chronic venous insufficiency: PLAN: Traumatic, penetrating open wounds with fat layer exposed to both left and right knee. Debridement done as documented above, procedure was well- tolerated. Chuyita and Adaptic over top. Cover with gauze and foam dressing for barrier/protection. Continue other supportive/conservative measures per podiatry. Her questions were answered and she was advised to call with any further questions or concerns. Follow-up in a week. This note was generated with [employer] dictation software. It may contain incorrect words, spelling, and punctuation that were not noted in checking the note before signing.
[2021-12-11 12:17] VITALS: BP 154/70; PULSE 82; TEMP 36.1; BMI 25.7
--- NOTE | 2021-12-11 14:15 | PN.PCM_ITS ---
History of Present Illness Date of Service: 12/11/21 Chief Complaint: Bilateral knee wound History of Wound: Ms. Castro is an 86-year-old who is currently being seen for below knee ulcers however I was asked to see due to nonhealing bilateral knee wound. Said to have been sustained about 2 weeks ago when she fell on her knees. Initially had apply Chuyita to the area however, worsening was noted this week. She states that there has been a lot of rubbing underneath her clothing and so dressing has not stayed on adequately. She feels well. Denies chills, fever or feeling of unwell. Subjective Subjective This 86-year-old female presents to the wound care center today for follow-up of left plantar hallux ulceration. She has been continuing to offload the first metatarsophalangeal joint and applying Chuyita and dry sterile dressings to her ulcerative site. She states she is picking up her protective inserts today. She denies any constitutional symptoms today. She also states that she is having painful elongated toenails that affect her when wearing shoe gear and walking. She states she has difficulty safely trimming her nails herself. She would like assistance with this today. She has no further complaints today. Objective Data Objective Data Vital Signs: Vital Signs Temp Pulse Resp BP 96.9 F L 82 18 154/70 H 12/11/21 12:17 12/11/21 12:17 11/27/21 11:03 12/11/21 12:17 Weight: 70.307 kg Body Mass Index (BMI) 25.7 Physical Exam Const alert, oriented x3 and no apparent distress General Appearance: cooperative and comfortable HEENT normocephalic Eyes General Eye: normal appearance of both eyes Neck General: normal visual inspection Lymph Lymphatic: no lymphadenopathy noted and no lymphedema noted Resp normal respiratory effort Cardio regular rate and regular rhythm Extremity normal capillary refill Left Lower Extremity: foot and digits Positive for ROM (Decreased range of motion secondary to 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 Left lower extremity ulceration anterior leg is healed. No signs of infection. Left hallux sub-IPJ ulceration demonstrates healthy granular base with surrounding hyperkeratotic tissue. No signs of infection to the left hallux. Right lower extremity lateral ankle ulceration is healed. No localized signs of infection. Neuro oriented x3 and moves all extremities Motor Exam: strength 5/5 throughout Debridement Note Debridement Note Wound debrided: Left plantar hallux Laterality: Left Wound Grade/Stage: Russell stage I Type of Debridement: Excisional debridement Anesthesia Used: 5% Lidocaine Gel Depth: Down to and including healthy tissue and in the subcutaneous layer Percentage of wound debrided: 100 Instrument Used: - (#313 blade) Tissue Removed: Fibrous, devitalized subcutaneous, biofilm, slough Severity: Fat Layer Exposed Amount of bleeding with debridement: Mild Bleeding Controlled with: Compression and gauze Patient tolerated procedure: Patient tolerated procedure well Post-Debridement Measurements and Additional Note: Post-Debridement Measurements/Treatment WC - Nurse 1 - General Ulcer Assessment Start: 11/27/21 11:03 Freq: Status: Active Protocol: BRAN.LOWEXT Activity Type Activity Date Activity User E-Sign Co-Sign Detail Recorded Client Recorded Date Recorded By Document 11/27/21 11:03 PL [id number] 11/27/21 11:15 PL Document 12/04/21 10:36 AK [id number] 12/04/21 10:38 AK Document 12/11/21 12:17 AK [id number] 12/11/21 12:21 AK 11/27/21 12/04/21 12/11/21 11:03 10:36 12:17 - Today's Visit Information Type of service Follow-up Visit Follow-up Visit Follow-up Visit (Physician/[employer]ICE MEAT MANAGER (Physician/SEAFO[employer] SERVICE MEAT MANAGER (Physician/SEA[employer] SERVICE MEAT MANAGER ) ) ) Arrival Mode Cane Ambulatory,Cane Ambulatory,Cane Transfer Assistance None Patient Identification Verified (Name & No Yes Yes ) Patient Requires Transmission-Based No No No Precautions Safety Precautions NA NA NA Height and Weight Body Mass Index (BMI) 25.7 25.7 25.7 BMI Classification Overweight Overweight Overweight Vital Signs Temperature (97.8 F-99.1 F) 97.5 F L 96.9 F L 96.9 F L Temperature Source Temporal Temporal Temporal Pulse Rate (60-100) 88 82 Pulse Location Monitor Monitor Respiratory Rate (12-18) 18 Blood Pressure (90/60-120/80) 149/72 H 154/70 H Blood Pressure Mean (mm Hg) 97 98 Source Monitor Monitor History Since Last Visit- (Skip if this is Patient's initial visit) Have you changed medications since your No No No last visit? Any new allergies or adverse reactions No No No Had a fall/change in ADL's that may No No No increase risk of falls Signs or symptoms of abuse and/or No No No neglect since last visit Have you been in the hospital since your No No No last visit? Has dressing in place as prescribed Yes Yes Yes Has compression in place as prescribed Yes N/A Yes Has offloadiing in place as prescribed Yes N/A No Experienced any changes in pain level or No No No management Left Footwear Regular Shoe Regular Shoe Right Footwear Regular Shoe Regular Shoe Pain Scale: 0-10 Numeric Is Patient Pain Free? Yes Yes Yes WC - Nurse 1 - General Ulcer Measurement Start: 11/27/21 11:03 Freq: Status: Active Protocol: Activity Type Activity Date Activity User E-Sign Co-Sign Detail Recorded Client Recorded Date Recorded By Document 11/27/21 11:03 PL [id number] 11/27/21 11:15 PL Document 12/04/21 10:36 AK [id number] 12/04/21 10:38 AK Document 12/11/21 12:17 AK [id number] 12/11/21 12:21 AK 11/27/21 12/04/21 12/11/21 11:03 10:36 12:17 Wound Center Nurse 1 #8 LEFT KNEE -Combined with other wound No #2 Left Gr Toe -Combined with other wound No No No -Current Size (cm) - Length 0.1 0.2 0.3 -Current Size (cm) - Width 0.1 0.6 0.3 -Current Size (cm) - Depth 0.1 0.1 0.2 -Total Square Cm 0.01 0.12 0.09 -Date of Last Picture (Recall this 12/11/21 field) -Photo Taken No No Yes -Epithelialization Medium 34-66% None Present -Tunneling No No No -Undermining/Tunneling No No No -Circular Undermining No No No -Change in Wound Grade/Stage No No -Exudate Amt Small Small Small -Exudate Type Serosanguineous Serosanguineous Serosanguineous -Wound Margin Distinct, Distinct, Outline Outline Attached Attached -Granulation Amt Medium (34-66%) None Present (0 Small (1-33%) %) -Granulation Quality Pale N/A Pale,Cleora -Slough/Fibrin Yes Yes Yes -Necrosis Amt Medium (34-66%) Small (1-33%) Medium (34-66%) -Necrotic Tissue Type Adherent Slough Adherent Slough Adherent Slough -Structure Exposed N/A N/A -Texture (Vangie-wound Skin Appearance) Assessed,Callus Assessed,Callus -Moisture (Vangie-wound Skin Appearance) Assessed,Dry/ Assessed,Dry/ Scaly Scaly -Color (Vangie-wound Skin Appearance) No Abnormality, No Abnormality, Assessed Assessed -Temperature (Vangie-wound Skin No Abnormality No Abnormality Appearance) (Pt Warm) (Pt Warm) -Tenderness on Palpation (Vangie-wound No No Skin Appearance) -Ulcer Cleansing Rinsed/ Rinsed/ Irrigated with Irrigated with Saline Saline -Foul Odor after Cleansing No No -Anesthetic Used 4% Lidocaine 4% Lidocaine Solution Solution #3 left anterior leg -Combined with other wound No -Current Size (cm) - Length 0.1 -Current Size (cm) - Width 0.1 -Current Size (cm) - Depth 0.1 -Total Square Cm 0.01 -Photo Taken No Lower Limb Edema Present No WC - Nurse 2 - General Ulcer CM Notes Start: 11/27/21 11:03 Freq: Status: Active Protocol: Activity Type Activity Date Activity User E-Sign Co-Sign Detail Recorded Client Recorded Date Recorded By Document 11/27/21 13:35 [id number] 11/27/21 13:36 PL Document 12/04/21 11:21 [id number] 12/04/21 11:24 Document 12/04/21 11:43 MW [id number] 12/04/21 11:47 MW Document 12/11/21 14:10 PL [id number] 12/11/21 14:12 PL 11/27/21 12/04/21 12/04/21 13:35 11:21 11:43 Wound Center Nurse 2 #8 LEFT KNEE -Time 11:44 -Correct Patient Yes -Correct Side, Site, Position Yes -Correct Procedure Yes -Procedure Performed Yes -Type of Procedure Debridement -Clinical Debridement Subcutaneous -Tissue Removed Subcutaneous -Post Debridement (cm) - Length 3.5 -Post Debridement (cm) - Width 2.8 -Post Debridement (cm) - Depth 0.2 -Total Square (Post) (cm) 9.80 -Area of Debridement (cm) - Length 3.5 -Area of Debridement (cm) - Width 2.8 -Total Square (Area) (cm) 9.80 -Tunneling No -Undermining/Tunneling No -Circular Undermining No -Wound/Ulcer Outcome Not Healed -Ulcer Cleansing Rinsed/ Irrigated with Saline -Foul Odor after Cleansing No -Bioengineered Tissue No -Bleeding Controlled with Pressure -Treatment Response Procedure Tolerated Well -Offloading No -Debridement - Subq, 1st 20sq cm No #7 RIGHT KNEE -Time 11:44 -Correct Patient Yes -Correct Side, Site, Position Yes -Correct Procedure Yes -Procedure Performed Yes -Type of Procedure Debridement -Clinical Debridement Subcutaneous -Tissue Removed Subcutaneous -Post Debridement (cm) - Length 2.0 -Post Debridement (cm) - Width 1.0 -Post Debridement (cm) - Depth 0.1 -Total Square (Post) (cm) 2.00 -Area of Debridement (cm) - Length 2.0 -Area of Debridement (cm) - Width 1.0 -Total Square (Area) (cm) 2.00 -Tunneling No -Undermining/Tunneling No -Circular Undermining No -Wound/Ulcer Outcome Not Healed -Ulcer Cleansing Rinsed/ Irrigated with Saline -Foul Odor after Cleansing No -Bioengineered Tissue No -Bleeding Controlled with Pressure -Treatment Response Procedure Tolerated Well -Offloading No -Debridement - Subq, 1st 20sq cm Yes #2 Left Gr Toe -Time 11:25 11:21 -Correct Patient Yes Yes -Correct Side, Site, Position Yes Yes -Correct Procedure Yes Yes -Procedure Performed Yes Yes -Type of Procedure Debridement Debridement -Clinical Debridement Subcutaneous Subcutaneous -Tissue Removed Subcutaneous Subcutaneous -Post Debridement (cm) - Length 0.1 0.3 -Post Debridement (cm) - Width 0.1 1.0 -Post Debridement (cm) - Depth 0.1 0.1 -Total Square (Post) (cm) 0.01 0.30 -Area of Debridement (cm) - Length 0.1 0.3 -Area of Debridement (cm) - Width 0.1 1.0 -Total Square (Area) (cm) 0.01 0.30 -Tunneling No No -Undermining/Tunneling No No -Circular Undermining No No -Wound/Ulcer Outcome Not Healed Not Healed -Ulcer Cleansing Rinsed/ Rinsed/ Irrigated with Irrigated with Saline Saline -Foul Odor after Cleansing No No -Bioengineered Tissue No No -Bleeding Controlled with Pressure Pressure -Treatment Response Procedure Procedure Tolerated Well Tolerated Well -Offloading No -Debridement - Subq, 1st 20sq cm Yes Yes #3 left anterior leg -Procedure Performed No -Wound/Ulcer Outcome Healed- Epithelialized Pain Scale: 0-10 Numeric Is Patient Pain Free? Yes Yes Yes 12/11/21 14:10 Wound Center Nurse 2 #8 LEFT KNEE -Time -Correct Patient -Correct Side, Site, Position -Correct Procedure -Procedure Performed -Type of Procedure -Clinical Debridement -Tissue Removed -Post Debridement (cm) - Length -Post Debridement (cm) - Width -Post Debridement (cm) - Depth -Total Square (Post) (cm) -Area of Debridement (cm) - Length -Area of Debridement (cm) - Width -Total Square (Area) (cm) -Tunneling -Undermining/Tunneling -Circular Undermining -Wound/Ulcer Outcome -Ulcer Cleansing -Foul Odor after Cleansing -Bioengineered Tissue -Bleeding Controlled with -Treatment Response -Offloading -Debridement - Subq, 1st 20sq cm #7 RIGHT KNEE -Time -Correct Patient -Correct Side, Site, Position -Correct Procedure -Procedure Performed -Type of Procedure -Clinical Debridement -Tissue Removed -Post Debridement (cm) - Length -Post Debridement (cm) - Width -Post Debridement (cm) - Depth -Total Square (Post) (cm) -Area of Debridement (cm) - Length -Area of Debridement (cm) - Width -Total Square (Area) (cm) -Tunneling -Undermining/Tunneling -Circular Undermining -Wound/Ulcer Outcome -Ulcer Cleansing -Foul Odor after Cleansing -Bioengineered Tissue -Bleeding Controlled with -Treatment Response -Offloading -Debridement - Subq, 1st 20sq cm #2 Left Gr Toe -Time 10:50 -Correct Patient Yes -Correct Side, Site, Position Yes -Correct Procedure Yes -Procedure Performed Yes -Type of Procedure Debridement -Clinical Debridement Subcutaneous -Tissue Removed Subcutaneous -Post Debridement (cm) - Length 0.3 -Post Debridement (cm) - Width 0.3 -Post Debridement (cm) - Depth 0.2 -Total Square (Post) (cm) 0.09 -Area of Debridement (cm) - Length 0.3 -Area of Debridement (cm) - Width 0.3 -Total Square (Area) (cm) 0.09 -Tunneling No -Undermining/Tunneling No -Circular Undermining No -Wound/Ulcer Outcome Not Healed -Ulcer Cleansing Rinsed/ Irrigated with Saline -Foul Odor after Cleansing No -Bioengineered Tissue No -Bleeding Controlled with Pressure -Treatment Response Procedure Tolerated Well -Offloading -Debridement - Subq, 1st 20sq cm Yes #3 left anterior leg -Procedure Performed -Wound/Ulcer Outcome Pain Scale: 0-10 Numeric Is Patient Pain Free? Yes WC - Nurse 3 - General Ulcer D/C NN Start: 11/27/21 11:03 Freq: Status: Active Protocol: Activity Type Activity Date Activity User E-Sign Co-Sign Detail Recorded Client Recorded Date Recorded By Document 11/27/21 12:37 MA [id number] 11/27/21 12:39 AK Document 12/04/21 12:02 AK [id number] 12/04/21 12:04 AK Document 12/11/21 12:17 AK [id number] 12/11/21 12:21 AK 11/27/21 12/04/21 12/11/21 12:37 12:02 12:17 Wound Care Nurse 3 #8 LEFT KNEE -Ulcer Cleansing Rinsed/ Irrigated with Saline -Foul Odor after Cleansing No -Negative Pressure Wound Therapy N/A -Primary Dressing Applied Mepilex Border, NonAdherent Contact Layer, Promogran Chuyita Matter -Mepilex Border 2 -Promogran Chuyita Matter 1 #7 RIGHT KNEE -Ulcer Cleansing Rinsed/ Irrigated with Saline -Foul Odor after Cleansing No -Negative Pressure Wound Therapy N/A -Primary Dressing Applied Mepilex Border, NonAdherent Contact Layer, Promogran -Mepilex Border 2 -Promogran 0 -Promogran Chuyita Matter 0 #2 Left Gr Toe -Ulcer Cleansing Rinsed/ Rinsed/ Rinsed/ Irrigated with Irrigated with Irrigated with Saline Saline Saline -Foul Odor after Cleansing No No No -Negative Pressure Wound Therapy N/A N/A N/A -Primary Dressing Applied NonAdherent Promogran Promogran Contact Layer, Chuyita Matter Promogran Chuyita Matter -Primary Dressing Covered/Secured with Dry Gauze, Dry Gauze, Dry Gauze, Secured with Secured with Secured with Tape Tape Tape -Promogran 0 -Promogran Chuyita Matter 1 1 Left -Lotion applied to leg before No No compression wrap -Other own tubi-s own Vital Signs Temperature (97.8 F-99.1 F) 96.9 F L Temperature Source Temporal Pulse Rate (60-100) 82 Pulse Location Monitor Blood Pressure (90/60-120/80) 154/70 H Blood Pressure Mean (mm Hg) 98 Source Monitor Pain Scale: 0-10 Numeric Is Patient Pain Free? Yes Yes Yes WC - Visit Discharge Discharge Condition Stable Stable Stable Ambulatory Status Ambulatory,Cane Ambulatory,Cane Cane Transportation Private Auto Private Auto Private Auto Accompanied by aid aid Medication Reconcilliation completed & Yes Yes Yes provided to patient/care provider Clinical Summary of Care Provided Yes Yes Yes Assessment/Plan Assessment/Plan (1) Non-pressure chronic ulcer of left calf with fat layer exposed: CODE(S): L97.222 - Non-pressure chronic ulcer of left calf with fat layer exposed (2) Non-pressure chronic ulcer of right calf with fat layer exposed: CODE(S): L97.212 - Non-pressure chronic ulcer of right calf with fat layer exposed (3) Non-pressure chronic ulcer of right ankle with fat layer exposed: CODE(S): L97.312 - Non-pressure chronic ulcer of right ankle with fat layer exposed (4) Non-pressure 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: CODE(S): L97.522 - Non-pressure 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 (5) Varicose veins of left lower extremity with ulcer of calf: CODE(S): I83.022 - Varicose veins of left lower extremity with ulcer of calf (6) Chronic venous insufficiency: (7) Leg edema, left: CODE(S): R60.0 - Localized edema (8) COPD (chronic obstructive pulmonary disease): CODE(S): J44.9 - Chronic obstructive pulmonary disease, unspecified (9) Edema leg: CODE(S): R60.0 - Localized edema PLAN: This is an 86-year-old female with history of COPD and spinal stenosis who presents to the wound care clinic for follow-up left medial hallux IPJ ulceration secondary to decreased range of motion at the first metatarsophalangeal joint due to end-stage arthritis. I discussed her case today with her. Right lateral leg and medial leg ulcerations remain healed. Left anterior lower extremity ulceration remains healed. No signs of infection. Right lateral ankle wound healed. No signs of infection. 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 Superficial abrasions to bilateral knees demonstrate no signs of infection. I debrided the left hallux medial IPJ hyperkeratotic tissue with a #313 blade as stated in the clinical panel above. Ulceration site demonstrates no localized signs of infection. Left hallux ulceration site is showing progression and decreasing in size overall with evidence of new skin formation across the wound bed, but still has callus buildup about the site. This wound is continuing to near closure, but continued pressure reduction is essential. She continues to offload the first metatarsophalangeal joint and hallux with an offloading pad to the plantar first metatarsal head. She is picking up her protective inserts today. She is continuing to demonstrate good progression with multiple ulcerative sites that have healed today. Hallux ulceration site was dressed with Chuyita, 2 x 2 gauze, Webril cotton padding and an offloading pad to the first metatarsophalangeal joint. I discussed continued offloading of the hallux ulceration site with felt pads & surgical shoe. Her shoes and protective inserts have arrived and she will pick these up. I will place offloading pad to the underside of her protective insert at next visit to offload the hallux. Patient to continue to elevate lower extremities in addition to wearing her Tubigrip compression stockings bilateral to aid in edema control. I discussed with her that she is to continue to elevate her feet at times of rest and do rsiflex and plantarflex her foot a few times to aid in venous return by utilization of her calf muscle. Patient voices understanding of this. I reviewed the patient's case. The etiology of thickened toenails was briefly reviewed including fungus or microtrauma. The nails 1, 2, 3, 4, 5 bilaterally were debrided with a nail nipper after verbal consent was obtained without incident. The nails were debrided in length and thickness to reduce pressure, potential fungal load, and to prevent wound formation. The patient tolerated this well. The patient elects proceed with palliative care only at this time with the nails and will hold off on further work-up. To follow-up with the [facility] if needed in the future for this condition. I reviewed and discussed her case today. Debridement was performed today as noted in the clinical panel to all of the ulcer sites. The following work up and care recommendations were made: Dressing: Chuyita left hallux, 2 x 2 gauze, cotton, Coban and an offloading pad to the first metatarsophalangeal joint Wash: Soap and water Tissue growth optimization: Chuyita Offload: Offloading dressing of the first metatarsophalangeal joint and left hallux Vascular: Vascular status intact with palpable pedal pulses. She had venous studies performed confirming reflux of the left great saphenous vein with no deep venous thrombosis bilaterally. Edema: Elevation of the left lower extremity and right lower extremity control to control edema. Patient instructed to wear double Tubigrip stockings Infection: No localized signs of infection Pain: May take [id number] Tylenol, safe oral anti-inflammatory use discussed. Host factors: Chronic venous insufficiency I answered all the patient's questions. To return to the wound healing center in 1 week or call sooner if the patient has any questions or concerns. Note: [employer] speech recognition video software engineer software was used to create portions of this document. Sound-alike and misspelled words, as well as other video software engineer errors may be contained in the documentation.
[2021-12-18 10:09] VITALS: TEMP 36.1; BMI 25.7
--- NOTE | 2021-12-18 11:34 | PCM.WC.PN ---
History of Present Illness Date of Service: 12/18/21 Chief Complaint: Bilateral knee wound History of Wound: Ms. Castro is an 86-year-old who is currently being seen for below knee ulcers however I was asked to see due to nonhealing bilateral knee wound. Said to have been sustained about 2 weeks ago when she fell on her knees. Initially had apply Chuyita to the area however, worsening was noted this week. She states that there has been a lot of rubbing underneath her clothing and so dressing has not stayed on adequately. She feels well. Denies chills, fever or feeling of unwell. Subjective Subjective This 86-year-old female presents to the wound care center today for follow-up of left plantar hallux ulceration. She has been continuing to offload the first metatarsophalangeal joint and applying Chuyita and dry sterile dressings to her ulcerative site. She denies any constitutional symptoms today. She has no other complaints today. Objective Data Objective Data Vital Signs: Vital Signs Temp Pulse Resp BP 96.9 F L 82 18 154/70 H 12/18/21 10:09 12/11/21 12:17 11/27/21 11:03 12/11/21 12:17 Weight: 70.307 kg Body Mass Index (BMI) 25.7 Physical Exam Const alert, oriented x3 and no apparent distress General Appearance: cooperative and comfortable HEENT normocephalic Eyes General Eye: normal appearance of both eyes Neck General: normal visual inspection Lymph Lymphatic: no lymphadenopathy noted and no lymphedema noted Resp normal respiratory effort Cardio regular rate and regular rhythm Extremity normal capillary refill Left Lower Extremity: foot and digits Positive for ROM (Decreased range of motion secondary to 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 Left lower extremity ulceration anterior leg is healed. No signs of infection. Left hallux sub-IPJ ulceration demonstrates healthy granular base with surrounding hyperkeratotic tissue. No signs of infection to the left hallux. Right lower extremity lateral ankle ulceration is healed. No localized signs of infection. Neuro oriented x3 and moves all extremities Motor Exam: strength 5/5 throughout Debridement Note Debridement Note Wound debrided: Left plantar hallux Laterality: Left Wound Grade/Stage: Russell stage I Type of Debridement: Excisional debridement Anesthesia Used: 5% Lidocaine Gel Depth: Down to and including healthy tissue and in the subcutaneous layer Percentage of wound debrided: 100 Instrument Used: - (#313 blade) Tissue Removed: Fibrous, devitalized subcutaneous, biofilm, slough Severity: Fat Layer Exposed Amount of bleeding with debridement: Mild Bleeding Controlled with: Compression and gauze Patient tolerated procedure: Patient tolerated procedure well Post-Debridement Measurements and Additional Note: Post-Debridement Measurements/Treatment - Nurse 1 - General Ulcer Assessment Start: 11/27/21 11:03 Freq: Status: Active Protocol: ALEX Activity Type Activity Date Activity User E-Sign Co-Sign Detail Recorded Client Recorded Date Recorded By Document 11/27/21 11:03 PL [id number] 11/27/21 11:15 PL Document 12/04/21 10:36 AK [id number] 12/04/21 10:38 AK Document 12/11/21 12:17 AK [id number] 12/11/21 12:21 AK Document 12/18/21 10:09 AK [id number] 12/18/21 10:21 AK 11/27/21 12/04/21 12/11/21 11:03 10:36 12:17 - Today's Visit Information Type of service Follow-up Visit Follow-up Visit Follow-up Visit (Physician/PIPE ASSEMBLY WORKER (Physician/PIPE ASSEMBLY WORKER (Physician/PIPE ASSEMBLY WORKER ) ) ) Arrival Mode Cane Ambulatory,Cane Ambulatory,Cane Transfer Assistance None Patient Identification Verified (Name & No Yes Yes ) Patient Requires Transmission-Based No No No Precautions Safety Precautions NA NA NA Height and Weight Body Mass Index (BMI) 25.7 25.7 25.7 BMI Classification Overweight Overweight Overweight Vital Signs Temperature (97.8 F-99.1 F) 97.5 F L 96.9 F L 96.9 F L Temperature Source Temporal Temporal Temporal Pulse Rate (60-100) 88 82 Pulse Location Monitor Monitor Respiratory Rate (12-18) 18 Blood Pressure (90/60-120/80) 149/72 H 154/70 H Blood Pressure Mean (mm Hg) 97 98 Source Monitor Monitor History Since Last Visit- (Skip if this is Patient's initial visit) Have you changed medications since your No No No last visit? Any new allergies or adverse reactions No No No Had a fall/change in ADL's that may No No No increase risk of falls Signs or symptoms of abuse and/or No No No neglect since last visit Have you been in the hospital since your No No No last visit? Has dressing in place as prescribed Yes Yes Yes Has compression in place as prescribed Yes N/A Yes Has offloadiing in place as prescribed Yes N/A No Experienced any changes in pain level or No No No management Left Footwear Regular Shoe Regular Shoe Right Footwear Regular Shoe Regular Shoe Pain Scale: 0-10 Numeric Is Patient Pain Free? Yes Yes Yes 12/18/21 10:09 WC - Today's Visit Information Type of service Follow-up Visit (Physician/PIPE ASSEMBLY WORKER ) Arrival Mode Ambulatory,Cane Transfer Assistance Patient Identification Verified (Name & Yes ) Patient Requires Transmission-Based No Precautions Safety Precautions Height and Weight Body Mass Index (BMI) 25.7 BMI Classification Overweight Vital Signs Temperature (97.8 F-99.1 F) 96.9 F L Temperature Source Temporal Pulse Rate (60-100) Pulse Location Respiratory Rate (12-18) Blood Pressure (90/60-120/80) Blood Pressure Mean (mm Hg) Source History Since Last Visit- (Skip if this is Patient's initial visit) Have you changed medications since your No last visit? Any new allergies or adverse reactions No Had a fall/change in ADL's that may No increase risk of falls Signs or symptoms of abuse and/or No neglect since last visit Have you been in the hospital since your No last visit? Has dressing in place as prescribed Yes Has compression in place as prescribed Yes Has offloadiing in place as prescribed N/A Experienced any changes in pain level or No management Left Footwear Regular Shoe Right Footwear Regular Shoe Pain Scale: 0-10 Numeric Is Patient Pain Free? Yes - Nurse 1 - General Ulcer Measurement Start: 11/27/21 11:03 Freq: Status: Active Protocol: Activity Type Activity Date Activity User E-Sign Co-Sign Detail Recorded Client Recorded Date Recorded By Document 11/27/21 11:03 PL [id number] 11/27/21 11:15 PL Document 12/04/21 10:36 AK [id number] 12/04/21 10:38 AK Document 12/11/21 12:17 WV [id number] 12/11/21 12:21 AK Document 12/18/21 10:09 WV [id number] 12/18/21 10:21 AK 11/27/21 12/04/21 12/11/21 11:03 10:36 12:17 Wound Center Nurse 1 #8 LEFT KNEE -Combined with other wound No #2 Left Gr Toe -Combined with other wound No No No -Current Size (cm) - Length 0.1 0.2 0.3 -Current Size (cm) - Width 0.1 0.6 0.3 -Current Size (cm) - Depth 0.1 0.1 0.2 -Total Square Cm 0.01 0.12 0.09 -Date of Last Picture (Recall this 12/11/21 field) -Photo Taken No No Yes -Epithelialization Medium 34-66% None Present -Tunneling No No No -Undermining/Tunneling No No No -Circular Undermining No No No -Change in Wound Grade/Stage No No -Exudate Amt Small Small Small -Exudate Type Serosanguineous Serosanguineous Serosanguineous -Wound Margin Distinct, Distinct, Outline Outline Attached Attached -Granulation Amt Medium (34-66%) None Present (0 Small (1-33%) %) -Granulation Quality Pale N/A Pale,[place] -Slough/Fibrin Yes Yes Yes -Necrosis Amt Medium (34-66%) Small (1-33%) Medium (34-66%) -Necrotic Tissue Type Adherent Slough Adherent Slough Adherent Slough -Structure Exposed N/A N/A -Texture (Vangie-wound Skin Appearance) Assessed,Callus Assessed,Callus -Moisture (Vangie-wound Skin Appearance) Assessed,Dry/ Assessed,Dry/ Scaly Scaly -Color (Vangie-wound Skin Appearance) No Abnormality, No Abnormality, Assessed Assessed -Temperature (Vangie-wound Skin No Abnormality No Abnormality Appearance) (Pt Warm) (Pt Warm) -Tenderness on Palpation (Vangie-wound No No Skin Appearance) -Ulcer Cleansing Rinsed/ Rinsed/ Irrigated with Irrigated with Saline Saline -Foul Odor after Cleansing No No -Anesthetic Used 4% Lidocaine 4% Lidocaine Solution Solution #3 left anterior leg -Combined with other wound No -Current Size (cm) - Length 0.1 -Current Size (cm) - Width 0.1 -Current Size (cm) - Depth 0.1 -Total Square Cm 0.01 -Photo Taken No Lower Limb Edema Present No 12/18/21 10:09 Wound Center Nurse 1 #8 LEFT KNEE -Combined with other wound No #2 Left Gr Toe -Combined with other wound No -Current Size (cm) - Length 0.2 -Current Size (cm) - Width 0.2 -Current Size (cm) - Depth 0.2 -Total Square Cm 0.04 -Date of Last Picture (Recall this field) -Photo Taken Yes -Epithelialization None Present -Tunneling No -Undermining/Tunneling No -Circular Undermining No -Change in Wound Grade/Stage No -Exudate Amt Small -Exudate Type Serosanguineous -Wound Margin Distinct, Outline Attached -Granulation Amt Small (1-33%) -Granulation Quality N/A -Slough/Fibrin Yes -Necrosis Amt Small (1-33%) -Necrotic Tissue Type Adherent Slough -Structure Exposed N/A -Texture (Vangie-wound Skin Appearance) Assessed,Callus -Moisture (Vangie-wound Skin Appearance) Assessed -Color (Vangie-wound Skin Appearance) No Abnormality, Assessed -Temperature (Vangie-wound Skin No Abnormality Appearance) (Pt Warm) -Tenderness on Palpation (Vangie-wound No Skin Appearance) -Ulcer Cleansing Rinsed/ Irrigated with Saline -Foul Odor after Cleansing No -Anesthetic Used 4% Lidocaine Solution #3 left anterior leg -Combined with other wound -Current Size (cm) - Length -Current Size (cm) - Width -Current Size (cm) - Depth -Total Square Cm -Photo Taken Lower Limb Edema Present - Nurse 2 - General Ulcer CM Notes Start: 11/27/21 11:03 Freq: Status: Active Protocol: Activity Type Activity Date Activity User E-Sign Co-Sign Detail Recorded Client Recorded Date Recorded By Document 11/27/21 13:35 PL [id number] 11/27/21 13:36 PL Document 12/04/21 11:21 JF [id number] 12/04/21 11:24 JF Document 12/04/21 11:43 MW [id number] 12/04/21 11:47 MW Document 12/11/21 14:10 PL [id number] 12/11/21 14:12 PL 11/27/21 12/04/21 12/04/21 13:35 11:21 11:43 Wound Center Nurse 2 #8 LEFT KNEE -Time 11:44 -Correct Patient Yes -Correct Side, Site, Position Yes -Correct Procedure Yes -Procedure Performed Yes -Type of Procedure Debridement -Clinical Debridement Subcutaneous -Tissue Removed Subcutaneous -Post Debridement (cm) - Length 3.5 -Post Debridement (cm) - Width 2.8 -Post Debridement (cm) - Depth 0.2 -Total Square (Post) (cm) 9.80 -Area of Debridement (cm) - Length 3.5 -Area of Debridement (cm) - Width 2.8 -Total Square (Area) (cm) 9.80 -Tunneling No -Undermining/Tunneling No -Circular Undermining No -Wound/Ulcer Outcome Not Healed -Ulcer Cleansing Rinsed/ Irrigated with Saline -Foul Odor after Cleansing No -Bioengineered Tissue No -Bleeding Controlled with Pressure -Treatment Response Procedure Tolerated Well -Offloading No -Debridement - Subq, 1st 20sq cm No #7 RIGHT KNEE -Time 11:44 -Correct Patient Yes -Correct Side, Site, Position Yes -Correct Procedure Yes -Procedure Performed Yes -Type of Procedure Debridement -Clinical Debridement Subcutaneous -Tissue Removed Subcutaneous -Post Debridement (cm) - Length 2.0 -Post Debridement (cm) - Width 1.0 -Post Debridement (cm) - Depth 0.1 -Total Square (Post) (cm) 2.00 -Area of Debridement (cm) - Length 2.0 -Area of Debridement (cm) - Width 1.0 -Total Square (Area) (cm) 2.00 -Tunneling No -Undermining/Tunneling No -Circular Undermining No -Wound/Ulcer Outcome Not Healed -Ulcer Cleansing Rinsed/ Irrigated with Saline -Foul Odor after Cleansing No -Bioengineered Tissue No -Bleeding Controlled with Pressure -Treatment Response Procedure Tolerated Well -Offloading No -Debridement - Subq, 1st 20sq cm Yes #2 Left Gr Toe -Time 11:25 11:21 -Correct Patient Yes Yes -Correct Side, Site, Position Yes Yes -Correct Procedure Yes Yes -Procedure Performed Yes Yes -Type of Procedure Debridement Debridement -Clinical Debridement Subcutaneous Subcutaneous -Tissue Removed Subcutaneous Subcutaneous -Post Debridement (cm) - Length 0.1 0.3 -Post Debridement (cm) - Width 0.1 1.0 -Post Debridement (cm) - Depth 0.1 0.1 -Total Square (Post) (cm) 0.01 0.30 -Area of Debridement (cm) - Length 0.1 0.3 -Area of Debridement (cm) - Width 0.1 1.0 -Total Square (Area) (cm) 0.01 0.30 -Tunneling No No -Undermining/Tunneling No No -Circular Undermining No No -Wound/Ulcer Outcome Not Healed Not Healed -Ulcer Cleansing Rinsed/ Rinsed/ Irrigated with Irrigated with Saline Saline -Foul Odor after Cleansing No No -Bioengineered Tissue No No -Bleeding Controlled with Pressure Pressure -Treatment Response Procedure Procedure Tolerated Well Tolerated Well -Offloading No -Debridement - Subq, 20sq cm Yes Yes #3 left anterior leg -Procedure Performed No -Wound/Ulcer Outcome Healed- Epithelialized Pain Scale: 0-10 Numeric Is Patient Pain Free? Yes Yes Yes 12/11/21 14:10 Wound Center Nurse 2 #8 LEFT KNEE -Time -Correct Patient -Correct Side, Site, Position -Correct Procedure -Procedure Performed -Type of Procedure -Clinical Debridement -Tissue Removed -Post Debridement (cm) - Length -Post Debridement (cm) - Width -Post Debridement (cm) - Depth -Total Square (Post) (cm) -Area of Debridement (cm) - Length -Area of Debridement (cm) - Width -Total Square (Area) (cm) -Tunneling -Undermining/Tunneling -Circular Undermining -Wound/Ulcer Outcome -Ulcer Cleansing -Foul Odor after Cleansing -Bioengineered Tissue -Bleeding Controlled with -Treatment Response -Offloading -Debridement - Subq, 20sq cm #7 RIGHT KNEE -Time -Correct Patient -Correct Side, Site, Position -Correct Procedure -Procedure Performed -Type of Procedure -Clinical Debridement -Tissue Removed -Post Debridement (cm) - Length -Post Debridement (cm) - Width -Post Debridement (cm) - Depth -Total Square (Post) (cm) -Area of Debridement (cm) - Length -Area of Debridement (cm) - Width -Total Square (Area) (cm) -Tunneling -Undermining/Tunneling -Circular Undermining -Wound/Ulcer Outcome -Ulcer Cleansing -Foul Odor after Cleansing -Bioengineered Tissue -Bleeding Controlled with -Treatment Response -Offloading -Debridement - Subq, 1st 20sq cm #2 Left Gr Toe -Time 10:50 -Correct Patient Yes -Correct Side, Site, Position Yes -Correct Procedure Yes -Procedure Performed Yes -Type of Procedure Debridement -Clinical Debridement Subcutaneous -Tissue Removed Subcutaneous -Post Debridement (cm) - Length 0.3 -Post Debridement (cm) - Width 0.3 -Post Debridement (cm) - Depth 0.2 -Total Square (Post) (cm) 0.09 -Area of Debridement (cm) - Length 0.3 -Area of Debridement (cm) - Width 0.3 -Total Square (Area) (cm) 0.09 -Tunneling No -Undermining/Tunneling No -Circular Undermining No -Wound/Ulcer Outcome Not Healed -Ulcer Cleansing Rinsed/ Irrigated with Saline -Foul Odor after Cleansing No -Bioengineered Tissue No -Bleeding Controlled with Pressure -Treatment Response Procedure Tolerated Well -Offloading -Debridement - Subq, 1st 20sq cm Yes #3 left anterior leg -Procedure Performed -Wound/Ulcer Outcome Pain Scale: 0-10 Numeric Is Patient Pain Free? Yes WC - Nurse 3 - General Ulcer D/C NN Start: 11/27/21 11:03 Freq: Status: Active Protocol: Activity Type Activity Date Activity User E-Sign Co-Sign Detail Recorded Client Recorded Date Recorded By Document 11/27/21 12:37 AK [id number] 11/27/21 12:39 AK Document 12/04/21 12:02 WV [id number] 12/04/21 12:04 AK Document 12/11/21 12:17 AK [id number] 12/11/21 12:21 AK Document 12/18/21 11:11 KR [id number] 12/18/21 11:12 KR 11/27/21 12/04/21 12/11/21 12:37 12:02 12:17 Wound Care Nurse 3 #8 LEFT KNEE -Ulcer Cleansing Rinsed/ Irrigated with Saline -Foul Odor after Cleansing No -Negative Pressure Wound Therapy N/A -Primary Dressing Applied Mepilex Border, NonAdherent Contact Layer, Promogran Chuyita Matter -Mepilex Border 2 -Promogran Chuyita Matter 1 #7 RIGHT KNEE -Ulcer Cleansing Rinsed/ Irrigated with Saline -Foul Odor after Cleansing No -Negative Pressure Wound Therapy N/A -Primary Dressing Applied Mepilex Border, NonAdherent Contact Layer, Promogran -Mepilex Border 2 -Promogran 0 -Promogran Chuyita Matter 0 #2 Left Gr Toe -Ulcer Cleansing Rinsed/ Rinsed/ Rinsed/ Irrigated with Irrigated with Irrigated with Saline Saline Saline -Foul Odor after Cleansing No No No -Negative Pressure Wound Therapy N/A N/A N/A -Primary Dressing Applied NonAdherent Promogran Promogran Contact Layer, Chuyita Matter Promogran Chuyita Matter -Primary Dressing Covered/Secured with Dry Gauze, Dry Gauze, Dry Gauze, Secured with Secured with Secured with Tape Tape Tape -Promogran 0 -Promogran Chuyita Matter 1 1 Left -Lotion applied to leg before No No compression wrap -Other own tubi-s own Vital Signs Temperature (97.8 F-99.1 F) 96.9 F L Temperature Source Temporal Pulse Rate (60-100) 82 Pulse Location Monitor Blood Pressure (90/60-120/80) 154/70 H Blood Pressure Mean (mm Hg) 98 Source Monitor Pain Scale: 0-10 Numeric Is Patient Pain Free? Yes Yes Yes WC - Visit Discharge Discharge Condition Stable Stable Stable Ambulatory Status Ambulatory,Cane Ambulatory,Cane Cane Transportation Private Auto Private Auto Private Auto Accompanied by aid aid Medication Reconcilliation completed & Yes Yes Yes provided to patient/care provider Clinical Summary of Care Provided Yes Yes Yes 12/18/21 11:11 Wound Care Nurse 3 #8 LEFT KNEE -Ulcer Cleansing -Foul Odor after Cleansing -Negative Pressure Wound Therapy -Primary Dressing Applied -Mepilex Border -Promogran Chuyita Matter #7 RIGHT KNEE -Ulcer Cleansing -Foul Odor after Cleansing -Negative Pressure Wound Therapy -Primary Dressing Applied -Mepilex Border -Promogran -Promogran Chuyita Matter #2 Left Gr Toe -Ulcer Cleansing Rinsed/ Irrigated with Saline -Foul Odor after Cleansing -Negative Pressure Wound Therapy -Primary Dressing Applied Promogran Chuyita Matter -Primary Dressing Covered/Secured with Dry Gauze, Secured with Tape -Promogran -Promogran Chuyita Matter 1 Left -Lotion applied to leg before compression wrap -Other Vital Signs Temperature (97.8 F-99.1 F) Temperature Source Pulse Rate (60-100) Pulse Location Blood Pressure (90/60-120/80) Blood Pressure Mean (mm Hg) Source Pain Scale: 0-10 Numeric Is Patient Pain Free? Yes WC - Visit Discharge Discharge Condition Stable Ambulatory Status Ambulatory Transportation Private Auto Accompanied by Medication Reconcilliation completed & provided to patient/care provider Clinical Summary of Care Provided Assessment/Plan Assessment/Plan (1) Non-pressure chronic ulcer of left calf with fat layer exposed: CODE(S): L97.222 - Non-pressure chronic ulcer of left calf with fat layer exposed (2) Non-pressure chronic ulcer of right calf with fat layer exposed: CODE(S): L97.212 - Non-pressure chronic ulcer of right calf with fat layer exposed (3) Non-pressure chronic ulcer of right ankle with fat layer exposed: CODE(S): L97.312 - Non-pressure chronic ulcer of right ankle with fat layer exposed (4) Non-pressure 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: CODE(S): L97.522 - Non-pressure 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 (5) Varicose veins of left lower extremity with ulcer of calf: CODE(S): I83.022 - Varicose veins of left lower extremity with ulcer of calf (6) Chronic venous insufficiency: (7) Leg edema, left: CODE(S): R60.0 - Localized edema (8) COPD (chronic obstructive pulmonary disease): CODE(S): J44.9 - Chronic obstructive pulmonary disease, unspecified (9) Edema leg: CODE(S): R60.0 - Localized edema PLAN: This is an 86-year-old female with history of COPD and spinal stenosis who presents to the wound care clinic for follow-up left medial hallux IPJ ulceration secondary to decreased range of motion at the first metatarsophalangeal joint due to end-stage arthritis. Patient seen and evaluated. I discussed her case today with her. Right lateral leg and medial leg ulcerations remain healed. Left anterior lower extremity ulceration remains healed. No signs of infection. Right lateral ankle wound healed. No signs of infection. 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 Superficial abrasions to bilateral knees demonstrate no signs of infection. I debrided the left hallux medial IPJ hyperkeratotic tissue with a #313 blade as stated in the clinical panel above. Ulceration site demonstrates no signs of infection. Left hallux ulceration site is showing progression and decreasing in size overall with evidence of new skin formation across the wound bed, but still has callus buildup about the site. This wound is continuing to near closure, but continued pressure reduction is essential. She continues to offload the first metatarsophalangeal joint and hallux with an offloading pad to the plantar first metatarsal head. Hallux ulceration site was dressed with Chuyita, 2 x 2 gauze, Webril cotton padding and an offloading pad to the first metatarsophalangeal joint and about the wound site on the Hallux. I discussed continued offloading of the hallux ulceration site with felt pads & surgical shoe. She has picked up her inserts but states they are too big for her current shoes and thus has not worn them. I discussed getting shoes that fit the inserts or returning to have the inserts trimmed to fit her current shoes. Patient to continue to elevate lower extremities in addition to wearing her Tubigrip compression stockings bilateral to aid in edema control. I discussed with her that she is to continue to elevate her feet at times of rest and dorsiflex and plantarflex her foot a few times to aid in venous return by utilization of her calf muscle. Patient voices understanding of this. I reviewed and discussed her case today. Debridement was performed today as noted in the clinical panel to all of the ulcer sites. The following work up and care recommendations were made: Dressing: Chuyita left hallux, 2 x 2 gauze, cotton, Coban and an offloading pad to the first metatarsophalangeal joint Wash: Soap and water Tissue growth optimization: Chuyita Offload: Offloading dressing of the first metatarsophalangeal joint and left hallux Vascular: Vascular status intact with palpable pedal pulses. She had venous studies performed confirming reflux of the left great saphenous vein with no deep venous thrombosis bilaterally. Edema: Elevation of the left lower extremity and right lower extremity control to control edema. Patient instructed to wear double Tubigrip stockings Infection: No localized signs of infection Pain: May take [id number] Tylenol, safe oral anti-inflammatory use discussed. Host factors: Chronic venous insufficiency I answered all the patient's questions. To return to the wound healing center in 1 week or call sooner if the patient has any questions or concerns. Note: [employer] speech recognition assistant store manager sales software was used to create portions of this document. Sound-alike and misspelled words, as well as other assistant store manager sales errors may be contained in the documentation.
== END 2021-12-23 23:59 | disposition home or self-care (01) ==
LOC: WC 10:15
PROVIDERS: PCP Family Medicine; Visit Provider Student in an Organized Health Care Education/Training Program
DX: L97.512 Non-pressure chronic ulcer of other part of right foot with fat layer exposed (principal); L97.522 Non-pressure 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; L97.212 Non-pressure chronic ulcer of right calf with fat layer exposed; L97.222 Non-pressure chronic ulcer of left calf with fat layer exposed; L97.312 Non-pressure chronic ulcer of right ankle with fat layer exposed; I83.022 Varicose veins of left lower extremity with ulcer of calf; J44.9 Chronic obstructive pulmonary disease, unspecified; I83.92 Asymptomatic varicose veins of left lower extremity; I87.2 Venous insufficiency (chronic) (peripheral); Z87.891 Personal history of nicotine dependence; R60.0 Localized edema; Z79.82 Long term (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 aspirin
CPT/HCPCS: 11042

== ENCOUNTER 2022-01-22 10:15 | Outpatient (RCR) | payer MEDICARE, OTHER, SELFPAY ==
[2021-12-24 00:49] VITALS: BP 154/70; PULSE 82; RESP 18; TEMP 36.1; BMI 25.7
[2021-12-25 10:29] VITALS: BP 151/70; PULSE 86; TEMP 36.3; BMI 25.7
--- NOTE | 2021-12-25 17:24 | PCM.WC.PN ---
History of Present Illness Date of Service: 12/25/21 Chief Complaint: Bilateral knee wound History of Wound: Ms. Castro is an 86-year-old who is currently being seen for below knee ulcers however I was asked to see due to nonhealing bilateral knee wound. Said to have been sustained about 2 weeks ago when she fell on her knees. Initially had apply Chuyita to the area however, worsening was noted this week. She states that there has been a lot of rubbing underneath her clothing and so dressing has not stayed on adequately. She feels well. Denies chills, fever or feeling of unwell. 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 Patient denies any constitutional symptoms. Patient has no further complaints. Objective Data Objective Data Vital Signs: Vital Signs Temp Pulse Resp BP 97.4 F L 86 18 151/70 H 12/25/21 10:29 12/25/21 10:29 12/24/21 00:49 12/25/21 10:29 Weight: 70.307 kg Body Mass Index (BMI) 25.7 Physical Exam Const alert, oriented x3 and no apparent distress General Appearance: cooperative and comfortable HEENT normocephalic Eyes General Eye: normal appearance of both eyes Neck General: normal visual inspection Lymph Lymphatic: no lymphadenopathy noted and no lymphedema noted Resp normal respiratory effort Cardio regular rate and regular rhythm Extremity normal capillary refill, no calf tenderness and no pedal edema Left Lower Extremity: foot and digits Positive for ROM (Decreased ROM secondary to end-stage arthritis of sarah first metatarsophalangeal joint without pain or creptius) Skin no rashes or lesions noted, skin turgor normal and no jaundice General Skin Exam: venous stasis Wound Narrative: Skin intact with brawny discoloration and hemosiderin position and right lower extremity secondary to venous insufficiency/stasis ulceration anteriorly healed. No signs of infection. Left hallux sub-IPJ ulceration demonstrates healthy granular base with surrounding hyperkeratotic tissue. No signs of infection. Right lower extremity lateral ankle ulceration remains healed. No localized signs of infection Neuro oriented x3 and moves all extremities Debridement Note Debridement Note Wound debrided: Plantar hallux Laterality: Left Wound Grade/Stage: Russell stage I Type of Debridement: Excisional debridement Anesthesia Used: 5% Lidocaine Gel Depth: Down to and including healthy tissue and in the subcutaneous layer Percentage of wound debrided: 100 Instrument Used: - (313 blade) Tissue Removed: Fibrous, devitalized subcutaneous, biofilm, slough Severity: Fat Layer Exposed Amount of bleeding with debridement: Mild Bleeding Controlled with: Compression and gauze Patient tolerated procedure: Patient tolerated procedure well Post-Debridement Measurements and Additional Note: Post-Debridement Measurements/Treatment - Nurse 1 - General Ulcer Assessment Start: 12/25/21 10:29 Freq: Status: Active Protocol: ALEX Activity Type Activity Date Activity User E-Sign Co-Sign Detail Recorded Client Recorded Date Recorded By Document 12/25/21 10:29 TORSTEN [id number] 12/25/21 10:30 TORSTEN 12/25/21 10:29 WC - Today's Visit Information Type of service Follow-up Visit (Physician/[employer] INSTRUCTOR ) Arrival Mode Ambulatory,Cane Patient Identification Verified (Name & Yes ) Height and Weight Body Mass Index (BMI) 25.7 BMI Classification Overweight Vital Signs Temperature (97.8 F-99.1 F) 97.4 F L Temperature Source Temporal Pulse Rate (60-100) 86 Pulse Location Monitor Blood Pressure (90/60-120/80) 151/70 H Blood Pressure Mean (mm Hg) 97 Source Monitor Position Semi-Fowlers Blood Pressure Location Left Arm History Since Last Visit- (Skip if this is Patient's initial visit) Have you changed medications since your No last visit? Any new allergies or adverse reactions No Had a fall/change in ADL's that may No increase risk of falls Signs or symptoms of abuse and/or No neglect since last visit Have you been in the hospital since your No last visit? Has dressing in place as prescribed Yes Has compression in place as prescribed Yes Has offloadiing in place as prescribed N/A Experienced any changes in pain level or No management Left Footwear Regular Shoe Right Footwear Regular Shoe Pain Scale: 0-10 Numeric Is Patient Pain Free? Yes - Nurse 1 - General Ulcer Measurement Start: 12/25/21 10:29 Freq: Status: Active Protocol: Activity Type Activity Date Activity User E-Sign Co-Sign Detail Recorded Client Recorded Date Recorded By Document 12/25/21 10:29 TORSTEN [id number] 12/25/21 10:30 KR 12/25/21 10:29 Wound Center Nurse 1 #2 Left Gr Toe -Current Size (cm) - Length 0.3 -Current Size (cm) - Width 0.4 -Current Size (cm) - Depth 0.2 -Total Square Cm 0.12 -Exudate Amt Small -Exudate Type Serosanguineous -Wound Margin Distinct, Outline Attached -Granulation Amt Medium (34-66%) -Granulation Quality [place] -Necrosis Amt Small (1-33%) -Necrotic Tissue Type Adherent Slough -Texture (Vangie-wound Skin Appearance) Assessed, Scarring -Moisture (Vangie-wound Skin Appearance) No Abnormality, Assessed -Color (Vangie-wound Skin Appearance) No Abnormality, Assessed -Temperature (Vangie-wound Skin No Abnormality Appearance) (Pt Warm) -Tenderness on Palpation (Vangie-wound No Skin Appearance) -Ulcer Cleansing Rinsed/ Irrigated with Saline -Foul Odor after Cleansing No -Anesthetic Used 5% Lidocaine Gel WC - Nurse 2 - General Ulcer CM Notes Start: 12/25/21 10:29 Freq: Status: Active Protocol: Activity Type Activity Date Activity User E-Sign Co-Sign Detail Recorded Client Recorded Date Recorded By Document 12/25/21 14:44 DARIO [id number] 12/25/21 14:46 PL 12/25/21 14:44 Wound Center Nurse 2 -Time 10:49 -Correct Patient Yes -Correct Side, Site, Position Yes -Correct Procedure Yes -Procedure Performed Yes -Type of Procedure Debridement -Clinical Debridement Subcutaneous -Tissue Removed Subcutaneous -Post Debridement (cm) - Length 0.3 -Post Debridement (cm) - Width 0.4 -Post Debridement (cm) - Depth 0.2 -Total Square (Post) (cm) 0.12 -Area of Debridement (cm) - Length 0.3 -Area of Debridement (cm) - Width 0.4 -Total Square (Area) (cm) 0.12 -Tunneling No -Undermining/Tunneling No -Circular Undermining No -Wound/Ulcer Outcome Not Healed -Ulcer Cleansing Rinsed/ Irrigated with Saline -Foul Odor after Cleansing No -Bioengineered Tissue No -Bleeding Controlled with Pressure -Treatment Response Procedure Tolerated Well -Debridement - Subq, 1st 20sq cm Yes Pain Scale: 0-10 Numeric Is Patient Pain Free? Yes WC - Nurse 3 - General Ulcer D/C NN Start: 12/25/21 10:29 Freq: Status: Active Protocol: Activity Type Activity Date Activity User E-Sign Co-Sign Detail Recorded Client Recorded Date Recorded By Document 12/25/21 11:24 TORSTEN [id number] 12/25/21 11:25 TORSTEN 12/25/21 11:24 Wound Care Nurse 3 #2 Left Gr Toe -Ulcer Cleansing Rinsed/ Irrigated with Saline -Primary Dressing Applied Promogran Chuyita Matter -Primary Dressing Covered/Secured with Dry Gauze, Secured with Tape -Promogran Hcuyita Matter 1 Pain Scale: 0-10 Numeric Is Patient Pain Free? Yes WC - Visit Discharge Discharge Condition Stable Ambulatory Status Ambulatory,Cane Transportation Private Auto Accompanied by caregiver Assessment/Plan Assessment/Plan (1) Non-pressure chronic ulcer of left calf with fat layer exposed: CODE(S): L97.222 - Non-pressure chronic ulcer of left calf with fat layer exposed (2) Non-pressure chronic ulcer of right calf with fat layer exposed: CODE(S): L97.212 - Non-pressure chronic ulcer of right calf with fat layer exposed (3) Non-pressure chronic ulcer of right ankle with fat layer exposed: CODE(S): L97.312 - Non-pressure chronic ulcer of right ankle with fat layer exposed (4) Non-pressure 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: CODE(S): L97.522 - Non-pressure 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 (5) Varicose veins of left lower extremity with ulcer of calf: CODE(S): I83.022 - Varicose veins of left lower extremity with ulcer of calf (6) Chronic venous insufficiency: (7) Leg edema, left: CODE(S): R60.0 - Localized edema (8) COPD (chronic obstructive pulmonary disease): CODE(S): J44.9 - Chronic obstructive pulmonary disease, unspecified (9) Unspecified open wound, right knee, initial encounter: CODE(S): S81.001A - Unspecified open wound, right knee, initial encounter (10) Unspecified open wound, left knee, initial encounter: CODE(S): S81.002A - Unspecified open wound, left knee, initial encounter PLAN: This is an 86-year-old female with history of COPD and spinal stenosis who presents to the wound care clinic for follow-up left medial hallux IPJ ulceration secondary to decreased range of motion at the first metatarsophalangeal joint due to end-stage arthritis. Patient seen and evaluated. I discussed her case today. Right lateral leg and medial leg ulcerations remain healed. Left anterior lower extremity ulceration remains healed. No signs of infection. Right lateral ankle wound healed. No signs of infection. 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 Superficial abrasions to bilateral knees demonstrate no signs of infection. I debrided the left hallux medial IPJ hyperkeratotic tissue with a #313 blade as stated in the clinical panel above. Ulceration site demonstrates no signs of infection. Left hallux ulceration site is showing progression and decreasing in size overall with evidence of new skin formation across the wound bed, but still has callus buildup about the site. This wound is continuing to near closure, but continued pressure reduction is essential. She continues to offload the first metatarsophalangeal joint and hallux with an offloading pad to the plantar first metatarsal head. Due to continued drainage from the site and some pain to palpation about the ulceration I am placing her on doxycycline 100 mg p.o. twice daily for 10 days as a precaution. Hallux ulceration site was dressed with Chuyita, 2 x 2 gauze, cotton padding and an offloading pad to the first metatarsophalangeal joint and about the wound site on the Hallux. I discussed continued offloading of the hallux ulceration site with felt pads & surgical shoe. She has picked up her inserts but states they are too big for her current shoes and thus has not worn them. I discussed getting shoes that fit the inserts or returning to have the inserts trimmed to fit her current shoes, she states she has an appointment today to look at a pair of shoes. Patient to continue to elevate lower extremities in addition to wearing her Tubigrip compression stockings bilateral to aid in edema control. I discussed with her that she is to continue to elevate her feet at times of rest and dorsiflex and plantarflex her foot a few times to aid in venous return by utilization of her calf muscle. Patient voices understanding of this. I reviewed and discussed her case today. Debridement was performed today as noted in the clinical panel to all of the ulcer sites. The following work up and care recommendations were made: Dressing: Chuyita left hallux, 2 x 2 gauze, cotton, Coban and an offloading pad to the first metatarsophalangeal joint Wash: Soap and water Tissue growth optimization: Chuyita Offload: Offloading dressing of the first metatarsophalangeal joint and left hallux Vascular: Vascular status intact with palpable pedal pulses. She had venous studies performed confirming reflux of the left great saphenous vein with no deep venous thrombosis bilaterally. Edema: Elevation of the left lower extremity and right lower extremity control to control edema. Patient instructed to wear double Tubigrip stockings Infection: No localized signs of infection Pain: May take [id number] Tylenol, safe oral anti-inflammatory use discussed. Host factors: Chronic venous insufficiency I answered all the patient's questions. To return to the wound healing center in 1 week or call sooner if the patient has any questions or concerns. Note: [employer] speech recognition shield operator software was used to create portions of this document. Sound-alike and misspelled words, as well as other shield operator errors may be contained in the documentation.
[2022-01-01 10:24] VITALS: BP 172/69; PULSE 73; TEMP 35.9; BMI 25.7
--- NOTE | 2022-01-01 14:56 | PCM.WC.PN ---
History of Present Illness Date of Service: 01/01/22 Chief Complaint: Bilateral knee wound History of Wound: Ms. Castro is an 86-year-old who is currently being seen for below knee ulcers however I was asked to see due to nonhealing bilateral knee wound. Said to have been sustained about 2 weeks ago when she fell on her knees. Initially had apply Chuyita to the area however, worsening was noted this week. She states that there has been a lot of rubbing underneath her clothing and so dressing has not stayed on adequately. She feels well. Denies chills, fever or feeling of unwell. 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 She presents today with her behavioral health care manager who states that they have ordered a pair of shoes with protective inserts to aid in offloading of the left foot. She is currently taking her oral antibiotic and will finish as instructed. Patient denies any constitutional symptoms. Patient has no further complaints. Objective Data Objective Data Vital Signs: Vital Signs Temp Pulse Resp BP 96.6 F L 73 18 172/69 H 01/01/22 10:24 01/01/22 10:24 12/24/21 00:49 01/01/22 10:24 Weight: 70.307 kg Body Mass Index (BMI) 25.7 Physical Exam Const alert, oriented x3 and no apparent distress General Appearance: cooperative and comfortable HEENT normocephalic Eyes General Eye: normal appearance of both eyes Neck General: normal visual inspection Lymph Lymphatic: no lymphadenopathy noted and no lymphedema noted Resp normal respiratory effort Cardio regular rate and regular rhythm Extremity normal capillary refill, no calf tenderness and no pedal edema Left Lower Extremity: foot and digits Positive for ROM (Decreased ROM secondary to end-stage arthritis of sarah first metatarsophalangeal joint without pain or creptius) Skin no rashes or lesions noted, skin turgor normal and no jaundice General Skin Exam: venous stasis Wound Narrative: Skin intact with brawny discoloration and hemosiderin position and right lower extremity secondary to venous insufficiency/stasis ulceration anteriorly healed. No signs of infection. Left hallux sub-IPJ ulceration demonstrates healthy granular base with surrounding hyperkeratotic tissue. No signs of infection. Right lower extremity lateral ankle ulceration remains healed. No localized signs of infection Neuro oriented x3 and moves all extremities Debridement Note Debridement Note Wound debrided: Left Plantar Hallux Laterality: Left Wound Grade/Stage: Russell stage I Type of Debridement: Excisional debridement Anesthesia Used: 5% Lidocaine Gel Depth: Down to and including healthy tissue and in the subcutaneous layer Percentage of wound debrided: 100 Instrument Used: #15 blade Tissue Removed: Fibrous, devitalized subcutaneous, biofilm, slough Severity: Fat Layer Exposed Amount of bleeding with debridement: Mild Bleeding Controlled with: Compression and gauze Patient tolerated procedure: Patient tolerated procedure well Post-Debridement Measurements and Additional Note: Post-Debridement Measurements/Treatment - Nurse 1 - General Ulcer Assessment Start: 12/25/21 10:29 Freq: Status: Active Protocol: ALEX Activity Type Activity Date Activity User E-Sign Co-Sign Detail Recorded Client Recorded Date Recorded By Document 12/25/21 10:29 TORSTEN [id number] 12/25/21 10:30 TORSTEN Document 01/01/22 10:24 MAC [id number] 01/01/22 10:26 MAC 12/25/21 01/01/22 10:29 10:24 - Today's Visit Information Type of service Follow-up Visit Follow-up Visit (Physician/COMMUNITY NUTRITION EDUCATOR (Physician/COMMUNITY NUTRITION EDUCATOR ) ) Arrival Mode Ambulatory,Cane Ambulatory,Cane Patient Identification Verified (Name & Yes Yes ) Patient Requires Transmission-Based No Precautions Safety Precautions NA Height and Weight Body Mass Index (BMI) 25.7 25.7 BMI Classification Overweight Overweight Vital Signs Temperature (97.8 F-99.1 F) 97.4 F L 96.6 F L Temperature Source Temporal Temporal Pulse Rate (60-100) 86 73 Pulse Location Monitor Monitor Blood Pressure (90/60-120/80) 151/70 H 172/69 H Blood Pressure Mean (mm Hg) 97 103 Source Monitor Monitor Position Semi-Fowlers Blood Pressure Location Left Arm History Since Last Visit- (Skip if this is Patient's initial visit) Have you changed medications since your No No last visit? Any new allergies or adverse reactions No No Had a fall/change in ADL's that may No No increase risk of falls Signs or symptoms of abuse and/or No No neglect since last visit Have you been in the hospital since your No No last visit? Has dressing in place as prescribed Yes Yes Has compression in place as prescribed Yes N/A Has offloadiing in place as prescribed N/A N/A Experienced any changes in pain level or No No management Left Footwear Regular Shoe Regular Shoe Right Footwear Regular Shoe Regular Shoe Pain Scale: 0-10 Numeric Is Patient Pain Free? Yes Yes - Nurse 1 - General Ulcer Measurement Start: 12/25/21 10:29 Freq: Status: Active Protocol: Activity Type Activity Date Activity User E-Sign Co-Sign Detail Recorded Client Recorded Date Recorded By Document 12/25/21 10:29 KR [id number] 12/25/21 10:30 KR Document 01/01/22 10:24 AK [id number] 01/01/22 10:26 AK 12/25/21 01/01/22 10:29 10:24 Wound Center Nurse 1 #2 Left Gr Toe -Combined with other wound No -Current Size (cm) - Length 0.3 0.2 -Current Size (cm) - Width 0.4 0.4 -Current Size (cm) - Depth 0.2 0.2 -Total Square Cm 0.12 0.08 -Photo Taken No -Tunneling No -Undermining/Tunneling No -Circular Undermining No -Exudate Amt Small Small -Exudate Type Serosanguineous Serosanguineous -Wound Margin Distinct, Distinct, Outline Outline Attached Attached -Granulation Amt Medium (34-66%) Small (1-33%) -Granulation Quality Ingenio Ingenio -Slough/Fibrin Yes -Necrosis Amt Small (1-33%) Small (1-33%) -Necrotic Tissue Type Adherent Slough Adherent Slough -Structure Exposed N/A -Texture (Vangie-wound Skin Appearance) Assessed, Assessed,Callus Scarring -Moisture (Vangie-wound Skin Appearance) No Abnormality, Assessed,Dry/ Assessed Scaly -Color (Vangie-wound Skin Appearance) No Abnormality, Assessed, Assessed Hemosiderin Staining -Temperature (Vangie-wound Skin No Abnormality No Abnormality Appearance) (Pt Warm) (Pt Warm) -Tenderness on Palpation (Vangie-wound No No Skin Appearance) -Ulcer Cleansing Rinsed/ Rinsed/ Irrigated with Irrigated with Saline Saline -Foul Odor after Cleansing No No -Anesthetic Used 5% Lidocaine 4% Lidocaine Gel Solution - Nurse 2 - General Ulcer CM Notes Start: 12/25/21 10:29 Freq: Status: Active Protocol: Activity Type Activity Date Activity User E-Sign Co-Sign Detail Recorded Client Recorded Date Recorded By Document 12/25/21 14:44 PL [id number] 12/25/21 14:46 PL Document 01/01/22 11:04 [id number] 01/01/22 11:08 JF 12/25/21 01/01/22 14:44 11:04 Wound Center Nurse 2 #2 Left Gr Toe -Time 10:49 11:04 -Correct Patient Yes Yes -Correct Side, Site, Position Yes Yes -Correct Procedure Yes Yes -Procedure Performed Yes Yes -Type of Procedure Debridement Debridement -Clinical Debridement Subcutaneous Subcutaneous -Tissue Removed Subcutaneous Subcutaneous -Post Debridement (cm) - Length 0.3 0.3 -Post Debridement (cm) - Width 0.4 0.5 -Post Debridement (cm) - Depth 0.2 0.1 -Total Square (Post) (cm) 0.12 0.15 -Area of Debridement (cm) - Length 0.3 0.3 -Area of Debridement (cm) - Width 0.4 0.5 -Total Square (Area) (cm) 0.12 0.15 -Tunneling No No -Undermining/Tunneling No No -Circular Undermining No No -Wound/Ulcer Outcome Not Healed Not Healed -Ulcer Cleansing Rinsed/ Rinsed/ Irrigated with Irrigated with Saline Saline -Foul Odor after Cleansing No No -Bioengineered Tissue No No -Bleeding Controlled with Pressure Pressure -Treatment Response Procedure Procedure Tolerated Well Tolerated Well -Offloading No -Debridement - Subq, 1st 20sq cm Yes Yes Pain Scale: 0-10 Numeric Is Patient Pain Free? Yes Yes - Nurse 3 - General Ulcer D/C NN Start: 12/25/21 10:29 Freq: Status: Active Protocol: Activity Type Activity Date Activity User E-Sign Co-Sign Detail Recorded Client Recorded Date Recorded By Document 12/25/21 11:24 KR [id number] 12/25/21 11:25 KR Document 01/01/22 11:23 KR [id number] 01/01/22 11:24 KR 12/25/21 01/01/22 11:24 11:23 Wound Care Nurse 3 #2 Left Gr Toe -Ulcer Cleansing Rinsed/ Rinsed/ Irrigated with Irrigated with Saline Saline -Primary Dressing Applied Promogran C Hydrogel ($), Chuyita Matter NonAdherent Contact Layer -Primary Dressing Covered/Secured with Dry Gauze, Dry Gauze, Secured with Secured with Tape Tape -Promogran Chuyita Matter 1 Pain Scale: 0-10 Numeric Is Patient Pain Free? Yes Yes WC - Visit Discharge Discharge Condition Stable Stable Ambulatory Status Ambulatory,Cane Ambulatory,Cane Transportation Private Auto Private Auto Accompanied by caregiver caregiver Assessment/Plan Assessment/Plan (1) Non-pressure chronic ulcer of left calf with fat layer exposed: CODE(S): L97.222 - Non-pressure chronic ulcer of left calf with fat layer exposed (2) Non-pressure chronic ulcer of right calf with fat layer exposed: CODE(S): L97.212 - Non-pressure chronic ulcer of right calf with fat layer exposed (3) Non-pressure chronic ulcer of right ankle with fat layer exposed: CODE(S): L97.312 - Non-pressure chronic ulcer of right ankle with fat layer exposed (4) Non-pressure 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: CODE(S): L97.522 - Non-pressure 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 (5) Varicose veins of left lower extremity with ulcer of calf: CODE(S): I83.022 - Varicose veins of left lower extremity with ulcer of calf (6) Chronic venous insufficiency: (7) Leg edema, left: CODE(S): R60.0 - Localized edema (8) COPD (chronic obstructive pulmonary disease): CODE(S): J44.9 - Chronic obstructive pulmonary disease, unspecified (9) Unspecified open wound, right knee, initial encounter: CODE(S): S81.001A - Unspecified open wound, right knee, initial encounter (10) Unspecified open wound, left knee, initial encounter: CODE(S): S81.002A - Unspecified open wound, left knee, initial encounter PLAN: This is an 86-year-old female with history of COPD and spinal stenosis who presents to the wound care clinic for follow-up left medial hallux IPJ ulceration secondary to decreased range of motion at the first metatarsophalangeal joint due to end-stage arthritis. Patient seen and evaluated. I discussed her case today. Right lateral leg and medial leg ulcerations remain healed. Left anterior lower extremity ulceration remains healed. No signs of infection. Right lateral ankle wound healed. No signs of infection. 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 Superficial abrasions to bilateral knees demonstrate no signs of infection. I debrided the left hallux medial IPJ hyperkeratotic tissue as stated in the clinical panel above. Ulceration site demonstrates no signs of infection. Left hallux ulceration site is showing progression and decreasing in size overall with evidence of new skin formation across the wound bed, but still has callus buildup about the site. This wound is continuing to near closure, but continued pressure reduction is essential. She continues to offload the first metatarsophalangeal joint and hallux with an offloading pad to the plantar first metatarsal head. She is continuing to take her oral doxycycline 100 mg p.o. twice a day, drainage has stopped. Hallux ulceration site was dressed with Chuyita, 2 x 2 gauze, cotton padding and an offloading pad to the first metatarsophalangeal joint and about the wound site on the Hallux. I discussed continued offloading of the hallux ulceration site with felt pads & surgical shoe. She has ordered shoes with new protective inserts, awaiting arrival. Patient to continue to elevate lower extremities in addition to wearing her Tubigrip compression stockings bilateral to aid in edema control. I discussed with her that she is to continue to elevate her feet at times of rest and dorsiflex and plantarflex her foot a few times to aid in venous return by utilization of her calf muscle. Patient voices understanding of this. I reviewed and discussed her case today. Debridement was performed today as noted in the clinical panel to all of the ulcer sites. The following work up and care recommendations were made: Dressing: Chuyita left hallux, 2 x 2 gauze, cotton, Coban and an offloading pad to the first metatarsophalangeal joint Wash: Soap and water Tissue growth optimization: Chuyita Offload: Offloading dressing of the first metatarsophalangeal joint and left hallux Vascular: Vascular status intact with palpable pedal pulses. She had venous studies performed confirming reflux of the left great saphenous vein with no deep venous thrombosis bilaterally. Edema: Elevation of the left lower extremity and right lower extremity control to control edema. Patient instructed to wear double Tubigrip stockings Infection: No localized signs of infection Pain: May take [id number] Tylenol, safe oral anti-inflammatory use discussed. Host factors: Chronic venous insufficiency I answered all the patient's questions. To return to the wound healing center in 1 week or call sooner if the patient has any questions or concerns. Note: [employer] speech recognition body and fender mechanic apprentice software was used to create portions of this document. Sound-alike and misspelled words, as well as other body and fender mechanic apprentice errors may be contained in the documentation.
[2022-01-08 10:14] VITALS: BP 151/60; PULSE 71; RESP 16; TEMP 36.5; BMI 25.7
--- NOTE | 2022-01-08 10:38 | PN.PCM_ITS ---
History of Present Illness Date of Service: 01/08/22 Chief Complaint: Bilateral knee wound History of Wound: Ms. Castro is an 86-year-old who is currently being seen for below knee ulcers however I was asked to see due to nonhealing bilateral knee wound. Said to have been sustained about 2 weeks ago when she fell on her knees. Initially had apply Chuyita to the area however, worsening was noted this week. She states that there has been a lot of rubbing underneath her clothing and so dressing has not stayed on adequately. She feels well. Denies chills, fever or feeling of unwell. 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 She is awaiting arrival of her shoes with protective inserts. She has finished her oral antibiotic as instructed. Patient denies any constitutional symptoms. Patient has no further complaints. Objective Data Objective Data Vital Signs: Vital Signs Temp Pulse Resp BP 97.7 F L 71 16 151/60 H 01/08/22 10:14 01/08/22 10:14 01/08/22 10:14 01/08/22 10:14 Weight: 70.307 kg Body Mass Index (BMI) 25.7 Physical Exam Const alert, oriented x3 and no apparent distress General Appearance: cooperative and comfortable HEENT normocephalic Eyes General Eye: normal appearance of both eyes Neck General: normal visual inspection Lymph Lymphatic: no lymphadenopathy noted and no lymphedema noted Resp normal respiratory effort Cardio regular rate and regular rhythm Extremity normal capillary refill, no calf tenderness and no pedal edema Left Lower Extremity: foot and digits Positive for ROM (Decreased ROM secondary to end-stage arthritis of sarah first metatarsophalangeal joint without pain or creptius) Skin no rashes or lesions noted, skin turgor normal and no jaundice General Skin Exam: venous stasis Wound Narrative: Skin intact with brawny discoloration and hemosiderin position and right lower extremity secondary to venous insufficiency/stasis ulceration anteriorly healed. No signs of infection. Left hallux sub-IPJ ulceration demonstrates healthy granular base with surrounding hyperkeratotic tissue. No signs of infection. Right lower extremity lateral ankle ulceration remains healed. No localized signs of infection Neuro oriented x3 and moves all extremities Debridement Note Debridement Note Wound debrided: Plantar Hallux Laterality: Left Wound Grade/Stage: Russell stage I Type of Debridement: Excisional debridement Anesthesia Used: 5% Lidocaine Gel Depth: Down to and including healthy tissue and in the subcutaneous layer Percentage of wound debrided: 100 Instrument Used: #10 blade Tissue Removed: Fibrous, devitalized subcutaneous, biofilm, slough Severity: Fat Layer Exposed Amount of bleeding with debridement: Mild Bleeding Controlled with: Compression and gauze Patient tolerated procedure: Patient tolerated procedure well Post-Debridement Measurements and Additional Note: Post-Debridement Measurements/Treatment - Nurse 1 - General Ulcer Assessment Start: 12/25/21 10:29 Freq: Status: Active Protocol: [email or web address] Activity Type Activity Date Activity User E-sign Co-sign Detail Recorded Client Recorded Date Recorded By Document 12/25/21 10:29 TORSTEN [id number] 12/25/21 10:30 KR Document 01/01/22 10:24 AK [id number] 01/01/22 10:26 AK Document 01/08/22 10:14 ML [id number] 01/08/22 10:21 ML 12/25/21 01/01/22 01/08/22 10:29 10:24 10:14 - Today's Visit Information Type of service Follow-up Visit Follow-up Visit Follow-up Visit (Physician/PAINT STRIPPER (Physician/PAINT STRIPPER (Physician/PAINT STRIPPER ) ) ) Arrival Mode Ambulatory,Cane Ambulatory,Cane Ambulatory,Cane Patient Identification Verified (Name & Yes Yes Yes ) Patient Requires Transmission-Based No No Precautions Safety Precautions NA NA Height and Weight Body Mass Index (BMI) 25.7 25.7 25.7 BMI Classification Overweight Overweight Overweight Vital Signs Temperature (97.8 F-99.1 F) 97.4 F L 96.6 F L 97.7 F L Temperature Source Temporal Temporal Temporal Pulse Rate (60-100) 86 73 71 Pulse Location Monitor Monitor Monitor Respiratory Rate (12-18) 16 Respiratory rate source Observation Blood Pressure (90/60-120/80) 151/70 H 172/69 H 151/60 H Blood Pressure Mean (mm Hg) 97 103 90 Source Monitor Monitor Monitor Position Semi-Fowlers Sitting Blood Pressure Location Left Arm Left Arm History Since Last Visit- (Skip if this is Patient's initial visit) Have you changed medications since your No No No last visit? Any new allergies or adverse reactions No No No Had a fall/change in ADL's that may No No No increase risk of falls Signs or symptoms of abuse and/or No No No neglect since last visit Have you been in the hospital since your No No No last visit? Has dressing in place as prescribed Yes Yes Yes Has compression in place as prescribed Yes N/A N/A Has offloadiing in place as prescribed N/A N/A N/A Experienced any changes in pain level or No No No management Left Footwear Regular Shoe Regular Shoe Regular Shoe Right Footwear Regular Shoe Regular Shoe Regular Shoe Pain Scale: 0-10 Numeric Is Patient Pain Free? Yes Yes Yes WC - Nurse 1 - General Ulcer Measurement Start: 12/25/21 10:29 Freq: Status: Active Protocol: Activity Type Activity Date Activity User E-sign Co-sign Detail Recorded Client Recorded Date Recorded By Document 12/25/21 10:29 KR [id number] 12/25/21 10:30 KR Document 01/01/22 10:24 AK [id number] 01/01/22 10:26 AK Document 01/08/22 10:14 ML [id number] 01/08/22 10:21 ML 12/25/21 01/01/22 01/08/22 10:29 10:24 10:14 Wound Center Nurse 1 #2 Left Gr Toe -Combined with other wound No -Current Size (cm) - Length 0.3 0.2 0.1 -Current Size (cm) - Width 0.4 0.4 0.1 -Current Size (cm) - Depth 0.2 0.2 0.1 -Total Square Cm 0.12 0.08 0.01 -Photo Taken No -Tunneling No -Undermining/Tunneling No -Circular Undermining No -Exudate Amt Small Small Small -Exudate Type Serosanguineous Serosanguineous Serous -Wound Margin Distinct, Distinct, Distinct, Outline Outline Outline Attached Attached Attached -Granulation Amt Medium (34-66%) Small (1-33%) Small (1-33%) -Granulation Quality [place] Pale -Slough/Fibrin Yes No -Necrosis Amt Small (1-33%) Small (1-33%) Small (1-33%) -Necrotic Tissue Type Adherent Slough Adherent Slough Adherent Slough -Structure Exposed N/A -Texture (Vangie-wound Skin Appearance) Assessed, Assessed,Callus Callus Scarring -Moisture (Vangie-wound Skin Appearance) No Abnormality, Assessed,Dry/ Assessed Assessed Scaly -Color (Vangie-wound Skin Appearance) No Abnormality, Assessed, Assessed Assessed Hemosiderin Staining -Temperature (Vangie-wound Skin No Abnormality No Abnormality No Abnormality Appearance) (Pt Warm) (Pt Warm) (Pt Warm) -Tenderness on Palpation (Vangie-wound No No Yes Skin Appearance) -Ulcer Cleansing Rinsed/ Rinsed/ Rinsed/ Irrigated with Irrigated with Irrigated with Saline Saline Saline -Foul Odor after Cleansing No No No -Anesthetic Used 5% Lidocaine 4% Lidocaine 4% Lidocaine Gel Solution Solution WC - Nurse 2 - General Ulcer CM Notes Start: 12/25/21 10:29 Freq: Status: Active Protocol: Activity Type Activity Date Activity User E-sign Co-sign Detail Recorded Client Recorded Date Recorded By Document 12/25/21 14:44 PL [id number] 12/25/21 14:46 PL Document 01/01/22 11:04 [id number] 01/01/22 11:08 12/25/21 01/01/22 14:44 11:04 Wound Center Nurse 2 #2 Left Gr Toe -Time 10:49 11:04 -Correct Patient Yes Yes -Correct Side, Site, Position Yes Yes -Correct Procedure Yes Yes -Procedure Performed Yes Yes -Type of Procedure Debridement Debridement -Clinical Debridement Subcutaneous Subcutaneous -Tissue Removed Subcutaneous Subcutaneous -Post Debridement (cm) - Length 0.3 0.3 -Post Debridement (cm) - Width 0.4 0.5 -Post Debridement (cm) - Depth 0.2 0.1 -Total Square (Post) (cm) 0.12 0.15 -Area of Debridement (cm) - Length 0.3 0.3 -Area of Debridement (cm) - Width 0.4 0.5 -Total Square (Area) (cm) 0.12 0.15 -Tunneling No No -Undermining/Tunneling No No -Circular Undermining No No -Wound/Ulcer Outcome Not Healed Not Healed -Ulcer Cleansing Rinsed/ Rinsed/ Irrigated with Irrigated with Saline Saline -Foul Odor after Cleansing No No -Bioengineered Tissue No No -Bleeding Controlled with Pressure Pressure -Treatment Response Procedure Procedure Tolerated Well Tolerated Well -Offloading No -Debridement - Subq, 1st 20sq cm Yes Yes Pain Scale: 0-10 Numeric Is Patient Pain Free? Yes Yes - Nurse 3 - General Ulcer D/C NN Start: 12/25/21 10:29 Freq: Status: Active Protocol: Activity Type Activity Date Activity User E-sign Co-sign Detail Recorded Client Recorded Date Recorded By Document 12/25/21 11:24 KR [id number] 12/25/21 11:25 KR Document 01/01/22 11:23 KR [id number] 01/01/22 11:24 KR 12/25/21 01/01/22 11:24 11:23 Wound Care Nurse 3 #2 Left Gr Toe -Ulcer Cleansing Rinsed/ Rinsed/ Irrigated with Irrigated with Saline Saline -Primary Dressing Applied Promogran C Hydrogel ($), Chuyita Matter NonAdherent Contact Layer -Primary Dressing Covered/Secured with Dry Gauze, Dry Gauze, Secured with Secured with Tape Tape -Promogran Chuyita Matter 1 Pain Scale: 0-10 Numeric Is Patient Pain Free? Yes Yes - Visit Discharge Discharge Condition Stable Stable Ambulatory Status Ambulatory,Cane Ambulatory,Cane Transportation Private Auto Private Auto Accompanied by caregiver caregiver Assessment/Plan Assessment/Plan (1) Non-pressure chronic ulcer of left calf with fat layer exposed: CODE(S): L97.222 - Non-pressure chronic ulcer of left calf with fat layer exposed (2) Non-pressure chronic ulcer of right calf with fat layer exposed: CODE(S): L97.212 - Non-pressure chronic ulcer of right calf with fat layer exposed (3) Non-pressure chronic ulcer of right ankle with fat layer exposed: CODE(S): L97.312 - Non-pressure chronic ulcer of right ankle with fat layer exposed (4) Non-pressure 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: CODE(S): L97.522 - Non-pressure 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 (5) Varicose veins of left lower extremity with ulcer of calf: CODE(S): I83.022 - Varicose veins of left lower extremity with ulcer of calf (6) Chronic venous insufficiency: (7) Leg edema, left: CODE(S): R60.0 - Localized edema (8) COPD (chronic obstructive pulmonary disease): CODE(S): J44.9 - Chronic obstructive pulmonary disease, unspecified (9) Unspecified open wound, right knee, initial encounter: CODE(S): S81.001A - Unspecified open wound, right knee, initial encounter (10) Unspecified open wound, left knee, initial encounter: CODE(S): S81.002A - Unspecified open wound, left knee, initial encounter PLAN: Plan This is an 86-year-old female with history of COPD and spinal stenosis who presents to the wound care clinic for follow-up left medial hallux IPJ ulceration secondary to decreased range of motion at the first metatarsophalangeal joint due to end-stage arthritis. Patient seen and evaluated. I discussed her case today. 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 Superficial abrasions to bilateral knees demonstrate no signs of infection. I debrided the left hallux medial IPJ hyperkeratotic tissue as stated in the clinical panel above. Ulceration site demonstrates no signs of infection. Left hallux ulceration site is showing progression and decreasing in size overall with evidence of new skin formation across the wound bed, but still has some callus buildup about the site. This wound is continuing to near closure, but continued pressure reduction is essential. She continues to offload the first metatarsophalangeal joint and hallux with an offloading pad to the plantar first metatarsal head. Hallux ulceration site was dressed with Chuyita, 2 x 2 gauze, cotton padding and an offloading pad to the first metatarsophalangeal joint and about the wound site on the Hallux. I discussed continued offloading of the hallux ulceration site with felt pads & surgical shoe. She has ordered shoes with new protective inserts, awaiting arrival. Patient to continue to elevate lower extremities in addition to wearing her Tubigrip compression stockings bilateral to aid in edema control. I discussed with her that she is to continue to elevate her feet at times of rest and dorsiflex and plantarflex her foot a few times to aid in venous return by utilization of her calf muscle. Patient voices understanding of this. I reviewed and discussed her case today. Debridement was performed today as noted in the clinical panel to all of the ulcer sites. The following work up and care recommendations were made: Dressing: Chuyita left hallux, 2 x 2 gauze, cotton, Coban and an offloading pad to the first metatarsophalangeal joint Wash: Soap and water Tissue growth optimization: Chuyita Offload: Offloading dressing of the first metatarsophalangeal joint and left hallux Vascular: Vascular status intact with palpable pedal pulses. She had venous studies performed confirming reflux of the left great saphenous vein with no deep venous thrombosis bilaterally. Edema: Elevation of the left lower extremity and right lower extremity control to control edema. Patient instructed to wear double Tubigrip stockings Infection: No localized signs of infection Pain: May take [id number] Tylenol, safe oral anti-inflammatory use discussed. Host factors: Chronic venous insufficiency I answered all the patient's questions. To return to the wound healing center in 2 weeks or call sooner if the patient has any questions or concerns. Note: [employer] speech recognition multi purpose machine operator software was used to create portions of this document. Sound-alike and misspelled words, as well as other multi purpose machine operator errors may be contained in the documentation.
[2022-01-22 10:24] VITALS: BP 109/52; PULSE 70; TEMP 36.5; BMI 25.7
--- NOTE | 2022-01-22 17:19 | PN.PCM_ITS ---
History of Present Illness Date of Service: 01/22/22 Chief Complaint: Bilateral knee wound History of Wound: Ms. Castro is an 86-year-old who is currently being seen for below knee ulcers however I was asked to see due to nonhealing bilateral knee wound. Said to have been sustained about 2 weeks ago when she fell on her knees. Initially had apply Chuyita to the area however, worsening was noted this week. She states that there has been a lot of rubbing underneath her clothing and so dressing has not stayed on adequately. She feels well. Denies chills, fever or feeling of unwell. 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 Patient denies any constitutional symptoms. Patient has no further complaints. Objective Data Objective Data Vital Signs: Vital Signs Temp Pulse Resp BP 97.7 F L 70 16 109/52 L 01/22/22 10:24 01/22/22 10:24 01/08/22 10:14 01/22/22 10:24 Weight: 70.307 kg Body Mass Index (BMI) 25.7 Physical Exam Const alert, oriented x3 and no apparent distress General Appearance: cooperative and comfortable HEENT normocephalic Eyes General Eye: normal appearance of both eyes Neck General: normal visual inspection Lymph Lymphatic: no lymphadenopathy noted and no lymphedema noted Resp normal respiratory effort Cardio regular rate and regular rhythm Extremity normal capillary refill, no calf tenderness and no pedal edema Left Lower Extremity: foot and digits Positive for ROM (Decreased ROM secondary to end-stage arthritis of sarah first metatarsophalangeal joint without pain or creptius) Skin no rashes or lesions noted, skin turgor normal and no jaundice General Skin Exam: venous stasis Wound Narrative: Skin intact with brawny discoloration and hemosiderin position and right lower extremity secondary to venous insufficiency/stasis ulceration anteriorly healed. No signs of infection. Left hallux sub-IPJ ulceration demonstrates healthy granular base with surrounding hyperkeratotic tissue. No signs of infection. Right lower extremity lateral ankle ulceration remains healed. No localized signs of infection Neuro oriented x3 and moves all extremities Debridement Note Debridement Note Wound debrided: Left plantar hallux Laterality: Left Wound Grade/Stage: Russell stage I Type of Debridement: Excisional debridement Anesthesia Used: 5% Lidocaine Gel Depth: Down to and including healthy tissue and in the subcutaneous layer Percentage of wound debrided: 100 Instrument Used: #15 blade Tissue Removed: Fibrous, devitalized subcutaneous, biofilm, slough Severity: Fat Layer Exposed Amount of bleeding with debridement: Mild Bleeding Controlled with: Compression and gauze Patient tolerated procedure: Patient tolerated procedure well Post-Debridement Measurements and Additional Note: Post-Debridement Measurements/Treatment - Nurse 1 - General Ulcer Assessment Start: 12/25/21 10:29 Freq: Status: Active Protocol: ALEX Activity Type Activity Date Activity User E-sign Co-sign Detail Recorded Client Recorded Date Recorded By Document 12/25/21 10:29 KR [id number] 12/25/21 10:30 KR Document 01/01/22 10:24 AK [id number] 01/01/22 10:26 AK Document 01/08/22 10:14 ML [id number] 01/08/22 10:21 ML Document 01/22/22 10:24 KR [id number] 01/22/22 10:25 KR 12/25/21 01/01/22 01/08/22 10:29 10:24 10:14 - Today's Visit Information Type of service Follow-up Visit Follow-up Visit Follow-up Visit (Physician/[employer] (Physician/[employer]ERSON (Physician/[employer]ERSON ) ) ) Arrival Mode Ambulatory,Cane Ambulatory,Cane Ambulatory,Cane Patient Identification Verified (Name & Yes Yes Yes ) Patient Requires Transmission-Based No No Precautions Safety Precautions NA NA Height and Weight Body Mass Index (BMI) 25.7 25.7 25.7 BMI Classification Overweight Overweight Overweight Vital Signs Temperature (97.8 F-99.1 F) 97.4 F L 96.6 F L 97.7 F L Temperature Source Temporal Temporal Temporal Pulse Rate (60-100) 86 73 71 Pulse Location Monitor Monitor Monitor Respiratory Rate (12-18) 16 Respiratory rate source Observation Blood Pressure (90/60-120/80) 151/70 H 172/69 H 151/60 H Blood Pressure Mean (mm Hg) 97 103 90 Source Monitor Monitor Monitor Position Semi-Fowlers Sitting Blood Pressure Location Left Arm Left Arm History Since Last Visit- (Skip if this is Patient's initial visit) Have you changed medications since your No No No last visit? Any new allergies or adverse reactions No No No Had a fall/change in ADL's that may No No No increase risk of falls Signs or symptoms of abuse and/or No No No neglect since last visit Have you been in the hospital since your No No No last visit? Has dressing in place as prescribed Yes Yes Yes Has compression in place as prescribed Yes N/A N/A Has offloadiing in place as prescribed N/A N/A N/A Experienced any changes in pain level or No No No management Left Footwear Regular Shoe Regular Shoe Regular Shoe Right Footwear Regular Shoe Regular Shoe Regular Shoe Pain Scale: 0-10 Numeric Is Patient Pain Free? Yes Yes Yes 01/22/22 10:24 - Today's Visit Information Type of service Follow-up Visit (Physician/[employer] ) Arrival Mode Ambulatory Patient Identification Verified (Name & Yes ) Patient Requires Transmission-Based Precautions Safety Precautions Height and Weight Body Mass Index (BMI) 25.7 BMI Classification Overweight Vital Signs Temperature (97.8 F-99.1 F) 97.7 F L Temperature Source Temporal Pulse Rate (60-100) 70 Pulse Location Monitor Respiratory Rate (12-18) Respiratory rate source Blood Pressure (90/60-120/80) 109/52 L Blood Pressure Mean (mm Hg) 71 Source Monitor Position Sitting Blood Pressure Location Right Arm History Since Last Visit- (Skip if this is Patient's initial visit) Have you changed medications since your No last visit? Any new allergies or adverse reactions No Had a fall/change in ADL's that may No increase risk of falls Signs or symptoms of abuse and/or No neglect since last visit Have you been in the hospital since your No last visit? Has dressing in place as prescribed Yes Has compression in place as prescribed Yes Has offloadiing in place as prescribed N/A Experienced any changes in pain level or No management Left Footwear Regular Shoe Right Footwear Regular Shoe Pain Scale: 0-10 Numeric Is Patient Pain Free? Yes - Nurse 1 - General Ulcer Measurement Start: 12/25/21 10:29 Freq: Status: Active Protocol: Activity Type Activity Date Activity User E-sign Co-sign Detail Recorded Client Recorded Date Recorded By Document 12/25/21 10:29 TORSTEN [id number] 12/25/21 10:30 KR Document 01/01/22 10:24 AK [id number] 01/01/22 10:26 AK Document 01/08/22 10:14 ML [id number] 01/08/22 10:21 ML Document 01/22/22 10:24 KR [id number] 01/22/22 10:25 KR 12/25/21 01/01/22 01/08/22 10:29 10:24 10:14 Wound Center Nurse 1 #2 Left Gr Toe -Combined with other wound No -Current Size (cm) - Length 0.3 0.2 0.1 -Current Size (cm) - Width 0.4 0.4 0.1 -Current Size (cm) - Depth 0.2 0.2 0.1 -Total Square Cm 0.12 0.08 0.01 -Photo Taken No -Tunneling No -Undermining/Tunneling No -Circular Undermining No -Exudate Amt Small Small Small -Exudate Type Serosanguineous Serosanguineous Serous -Wound Margin Distinct, Distinct, Distinct, Outline Outline Outline Attached Attached Attached -Granulation Amt Medium (34-66%) Small (1-33%) Small (1-33%) -Granulation Quality Coxton Coxton Pale -Slough/Fibrin Yes No -Necrosis Amt Small (1-33%) Small (1-33%) Small (1-33%) -Necrotic Tissue Type Adherent Slough Adherent Slough Adherent Slough -Structure Exposed N/A -Texture (Vangie-wound Skin Appearance) Assessed, Assessed,Callus Callus Scarring -Moisture (Vangie-wound Skin Appearance) No Abnormality, Assessed,Dry/ Assessed Assessed Scaly -Color (Vangie-wound Skin Appearance) No Abnormality, Assessed, Assessed Assessed Hemosiderin Staining -Temperature (Vangie-wound Skin No Abnormality No Abnormality No Abnormality Appearance) (Pt Warm) (Pt Warm) (Pt Warm) -Tenderness on Palpation (Vangie-wound No No Yes Skin Appearance) -Ulcer Cleansing Rinsed/ Rinsed/ Rinsed/ Irrigated with Irrigated with Irrigated with Saline Saline Saline -Foul Odor after Cleansing No No No -Anesthetic Used 5% Lidocaine 4% Lidocaine 4% Lidocaine Gel Solution Solution 01/22/22 10:24 Wound Center Nurse 1 #2 Left Gr Toe -Combined with other wound -Current Size (cm) - Length 0.2 -Current Size (cm) - Width 0.2 -Current Size (cm) - Depth 0.2 -Total Square Cm 0.04 -Photo Taken -Tunneling -Undermining/Tunneling -Circular Undermining -Exudate Amt Small -Exudate Type Serosanguineous -Wound Margin Distinct, Outline Attached -Granulation Amt Small (1-33%) -Granulation Quality Coxton -Slough/Fibrin -Necrosis Amt None Present (0 %) -Necrotic Tissue Type -Structure Exposed -Texture (Vangie-wound Skin Appearance) Assessed, Scarring -Moisture (Vangie-wound Skin Appearance) No Abnormality, Assessed -Color (Vangie-wound Skin Appearance) No Abnormality, Assessed -Temperature (Vangie-wound Skin No Abnormality Appearance) (Pt Warm) -Tenderness on Palpation (Vangie-wound No Skin Appearance) -Ulcer Cleansing Rinsed/ Irrigated with Saline -Foul Odor after Cleansing No -Anesthetic Used 4% Lidocaine Solution WC - Nurse 2 - General Ulcer CM Notes Start: 12/25/21 10:29 Freq: Status: Active Protocol: Activity Type Activity Date Activity User E-sign Co-sign Detail Recorded Client Recorded Date Recorded By Document 12/25/21 14:44 PL [id number] 12/25/21 14:46 PL Document 01/01/22 11:04 [id number] 01/01/22 11:08 JF Document 01/08/22 11:27 PL [id number] 01/08/22 11:27 PL Document 01/22/22 12:32 PL [id number] 01/22/22 12:33 PL 12/25/21 01/01/22 01/08/22 14:44 11:04 11:27 Wound Center Nurse 2 #2 Left Gr Toe -Time 10:49 11:04 10:44 -Correct Patient Yes Yes Yes -Correct Side, Site, Position Yes Yes Yes -Correct Procedure Yes Yes Yes -Procedure Performed Yes Yes Yes -Type of Procedure Debridement Debridement Debridement -Clinical Debridement Subcutaneous Subcutaneous Subcutaneous -Tissue Removed Subcutaneous Subcutaneous Subcutaneous -Post Debridement (cm) - Length 0.3 0.3 0.1 -Post Debridement (cm) - Width 0.4 0.5 0.1 -Post Debridement (cm) - Depth 0.2 0.1 1 -Total Square (Post) (cm) 0.12 0.15 0.01 -Area of Debridement (cm) - Length 0.3 0.3 0.1 -Area of Debridement (cm) - Width 0.4 0.5 1 -Total Square (Area) (cm) 0.12 0.15 0.1 -Tunneling No No No -Undermining/Tunneling No No No -Circular Undermining No No No -Wound/Ulcer Outcome Not Healed Not Healed Not Healed -Ulcer Cleansing Rinsed/ Rinsed/ Rinsed/ Irrigated with Irrigated with Irrigated with Saline Saline Saline -Foul Odor after Cleansing No No No -Bioengineered Tissue No No No -Bleeding Controlled with Pressure Pressure Pressure -Treatment Response Procedure Procedure Procedure Tolerated Well Tolerated Well Tolerated Well -Offloading No -Debridement - Subq, 1st 20sq cm Yes Yes Yes Pain Scale: 0-10 Numeric Is Patient Pain Free? Yes Yes Yes 01/22/22 12:32 Wound Center Nurse 2 #2 Left Gr Toe -Time 11:09 -Correct Patient Yes -Correct Side, Site, Position Yes -Correct Procedure Yes -Procedure Performed Yes -Type of Procedure Debridement -Clinical Debridement Subcutaneous -Tissue Removed Subcutaneous -Post Debridement (cm) - Length 0.2 -Post Debridement (cm) - Width 0.2 -Post Debridement (cm) - Depth 0.2 -Total Square (Post) (cm) 0.04 -Area of Debridement (cm) - Length 0.2 -Area of Debridement (cm) - Width 0.2 -Total Square (Area) (cm) 0.04 -Tunneling No -Undermining/Tunneling No -Circular Undermining No -Wound/Ulcer Outcome Not Healed -Ulcer Cleansing Rinsed/ Irrigated with Saline -Foul Odor after Cleansing No -Bioengineered Tissue No -Bleeding Controlled with Pressure -Treatment Response Procedure Tolerated Well -Offloading -Debridement - Subq, 1st 20sq cm Yes Pain Scale: 0-10 Numeric Is Patient Pain Free? Yes - Nurse 3 - General Ulcer D/C NN Start: 12/25/21 10:29 Freq: Status: Active Protocol: Activity Type Activity Date Activity User E-sign Co-sign Detail Recorded Client Recorded Date Recorded By Document 12/25/21 11:24 KR [id number] 12/25/21 11:25 KR Document 01/01/22 11:23 KR [id number] 01/01/22 11:24 KR Document 01/08/22 11:04 ML [id number] 01/08/22 11:05 ML Document 01/22/22 12:16 KR [id number] 01/22/22 12:16 KR 12/25/21 01/01/22 01/08/22 11:24 11:23 11:04 Wound Care Nurse 3 #2 Left Gr Toe -Ulcer Cleansing Rinsed/ Rinsed/ Rinsed/ Irrigated with Irrigated with Irrigated with Saline Saline Saline -Primary Dressing Applied Promogran C Hydrogel ($), C Hydrogel ($) Chuyita Matter NonAdherent Contact Layer -Primary Dressing Covered/Secured with Dry Gauze, Dry Gauze, Dry Gauze, Secured with Secured with Secured with Tape Tape Tape -Promogran Chuyita Matter 1 Pain Scale: 0-10 Numeric Is Patient Pain Free? Yes Yes Yes WC - Visit Discharge Discharge Condition Stable Stable Ambulatory Status Ambulatory,Cane Ambulatory,Cane Transportation Private Auto Private Auto Accompanied by caregiver caregiver 01/22/22 12:16 Wound Care Nurse 3 #2 Left Gr Toe -Ulcer Cleansing -Primary Dressing Applied C Hydrogel ($) -Primary Dressing Covered/Secured with Dry Gauze, Secured with Tape -Promogran Chuyita Matter Pain Scale: 0-10 Numeric Is Patient Pain Free? Yes WC - Visit Discharge Discharge Condition Stable Ambulatory Status Ambulatory Transportation Private Auto Accompanied by Assessment/Plan Assessment/Plan (1) Non-pressure chronic ulcer of left calf with fat layer exposed: CODE(S): L97.222 - Non-pressure chronic ulcer of left calf with fat layer exposed (2) Non-pressure chronic ulcer of right calf with fat layer exposed: CODE(S): L97.212 - Non-pressure chronic ulcer of right calf with fat layer exposed (3) Non-pressure chronic ulcer of right ankle with fat layer exposed: CODE(S): L97.312 - Non-pressure chronic ulcer of right ankle with fat layer exposed (4) Non-pressure 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: CODE(S): L97.522 - Non-pressure 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 (5) Varicose veins of left lower extremity with ulcer of calf: CODE(S): I83.022 - Varicose veins of left lower extremity with ulcer of calf (6) Chronic venous insufficiency: (7) Leg edema, left: CODE(S): R60.0 - Localized edema (8) COPD (chronic obstructive pulmonary disease): CODE(S): J44.9 - Chronic obstructive pulmonary disease, unspecified (9) Unspecified open wound, right knee, initial encounter: CODE(S): S81.001A - Unspecified open wound, right knee, initial encounter (10) Unspecified open wound, left knee, initial encounter: CODE(S): S81.002A - Unspecified open wound, left knee, initial encounter PLAN: Plan This is an 86-year-old female with history of COPD and spinal stenosis who presents to the wound care clinic for follow-up left medial hallux IPJ ulceration secondary to decreased range of motion at the first metatarsophalange al joint due to end-stage arthritis. Patient seen and evaluated. I discussed her case today. 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 I debrided the left hallux medial IPJ hyperkeratotic tissue as stated in the clinical panel above. Ulceration site demonstrates no signs of infection. Left hallux ulceration site is showing progression and decreasing in size overall with evidence of new skin formation across the wound bed, but still has some callus buildup about the site. This wound is continuing to near closure, but co ntinued pressure reduction is essential. She continues to offload the first metatarsophalangeal joint and hallux with an offloading pad to the plantar first metatarsal head. Hallux ulceration site was dressed with Chuyita, 2 x 2 gauze, cotton padding and an offloading pad to the first metatarsophalangeal joint and about the wound site on the Hallux. I discussed continued offloading of the hallux ulceration site with felt pads & surgical shoe. I discussed possible surgical intervention with her today to remove a portion of bone at the interphalangeal joint of her hallux for pressure reduction and ultimately healing of the ulcerative site. She states she will think about this. Patient to continue to elevate lower extremities in addition to wearing her Tubigrip compression stockings bilateral to aid in edema control. I discussed with her that she is to continue to elevate her feet at times of rest and dorsiflex and plantarflex her foot a few times to aid in venous return by utilization of her calf muscle. Patient voices understanding of this. I reviewed and discussed her case today. Debridement was performed today as noted in the clinical panel to all of the ulcer sites. The following work up and care recommendations were made: Dressing: Chuyita left hallux, 2 x 2 gauze, cotton, Coban and an offloading pad to the first metatarsophalangeal joint Wash: Soap and water Tissue growth optimization: Chuyita Offload: Offloading dressing of the first metatarsophalangeal joint and left hallux Vascular: Vascular status intact with palpable pedal pulses. She had venous studies performed confirming reflux of the left great saphenous vein with no deep venous thrombosis bilaterally. Edema: Elevation of the left lower extremity and right lower extremity control to control edema. Patient instructed to wear double Tubigrip stockings Infection: No localized signs of infection Pain: May take [id number] Tylenol, safe oral anti-inflammatory use discussed. Host factors: Chronic venous insufficiency I answered all the patient's questions. To return to the wound healing center in 1 week or call sooner if the patient has any questions or concerns. Note: [employer] speech recognition poultry farmworker software was used to create portions of this document. Sound-alike and misspelled words, as well as other poultry farmworker errors may be contained in the documentation.
== END 2022-01-22 23:59 | disposition home or self-care (01) ==
LOC: WC 10:15
PROVIDERS: PCP Family Medicine; Visit Provider Student in an Organized Health Care Education/Training Program
DX: L97.522 Non-pressure 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 (principal); L97.212 Non-pressure chronic ulcer of right calf with fat layer exposed; L97.222 Non-pressure chronic ulcer of left calf with fat layer exposed; L97.312 Non-pressure chronic ulcer of right ankle with fat layer exposed; I83.022 Varicose veins of left lower extremity with ulcer of calf; J44.9 Chronic obstructive pulmonary disease, unspecified; I87.2 Venous insufficiency (chronic) (peripheral); S81.002A Unspecified open wound, left knee, initial encounter; R60.0 Localized edema; S81.001A Unspecified open wound, right knee, initial encounter
CPT/HCPCS: 11042

== ENCOUNTER 2022-02-12 10:15 | Outpatient (RCR) | payer MEDICARE, OTHER, SELFPAY ==
[2022-01-23 00:30] VITALS: BP 109/52; PULSE 70; RESP 16; TEMP 36.5; BMI 25.7
[2022-01-29 11:33] VITALS: BP 149/71; PULSE 73; TEMP 35.6; BMI 25.7
--- NOTE | 2022-01-29 12:49 | PN.PCM_ITS ---
History of Present Illness Date of Service: 01/29/22 Chief Complaint: Bilateral knee wound History of Wound: Ms. Castro is an 86-year-old who is currently being seen for below knee ulcers however I was asked to see due to nonhealing bilateral knee wound. Said to have been sustained about 2 weeks ago when she fell on her knees. Initially had apply Chuyita to the area however, worsening was noted this week. She states that there has been a lot of rubbing underneath her clothing and so dressing has not stayed on adequately. She feels well. Denies chills, fever or feeling of unwell. 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 Patient denies any constitutional symptoms. Patient has no further complaints. Objective Data Objective Data Vital Signs: Vital Signs Temp Pulse Resp BP 96.1 F L 73 16 149/71 H 01/29/22 11:33 01/29/22 11:33 01/23/22 00:30 01/29/22 11:33 Weight: 70.307 kg Body Mass Index (BMI) 25.7 Physical Exam Const alert, oriented x3 and no apparent distress General Appearance: cooperative and comfortable HEENT normocephalic Eyes General Eye: normal appearance of both eyes Neck General: normal visual inspection Lymph Lymphatic: no lymphadenopathy noted and no lymphedema noted Resp normal respiratory effort Cardio regular rate and regular rhythm Extremity normal capillary refill, no joint enlargement, no calf tenderness and no pedal edema Peripheral Pulses: Yes posterior tibial pulses present and dorsalis pedis pulses present Right Lower Extremity: foot and digits Positive for ROM (Decreased range of motion at the first metatarsophalangeal joint secondary to end-stage hallux limitus/rigidus) Left Lower Extremity: foot and digits Positive for ROM (Decreased range of motion at the first metatarsophalangeal joint secondary to end-stage hallux limitus/rigidus) Skin no rashes or lesions noted, skin turgor normal and no jaundice General Skin Exam: venous stasis and dermatitis Wound Narrative: Skin intact with brawny discoloration and hemosiderin position and right lower extremity secondary to venous insufficiency/stasis ulceration anteriorly healed.? No signs of infection. Left hallux sub-IPJ ulceration demonstrates healthy granular base with surrounding hyperkeratotic tissue. No signs of infection. Right lower extremity lateral ankle ulceration remains healed.? No localized signs of infection Neuro oriented x3 and moves all extremities Debridement Note Debridement Note Wound debrided: Left plantar hallux Laterality: Left Wound Grade/Stage: Russell stage I Type of Debridement: Excisional debridement Anesthesia Used: 5% Lidocaine Gel Depth: Down to and including healthy tissue and in the subcutaneous layer Percentage of wound debrided: 100 Instrument Used: #15 blade Tissue Removed: Fibrous, devitalized subcutaneous, biofilm, slough Severity: Fat Layer Exposed Amount of bleeding with debridement: Mild Bleeding Controlled with: Compression and gauze Patient tolerated procedure: Patient tolerated procedure well Post-Debridement Measurements and Additional Note: Post-Debridement Measurements/Treatment WC - Nurse 1 - General Ulcer Assessment Start: 01/29/22 11:09 Freq: Status: Active Protocol: ALEX Activity Type Activity Date Activity User E-sign Co-sign Detail Recorded Client Recorded Date Recorded By Document 01/29/22 11:33 PL [id number] 01/29/22 11:35 PL 01/29/22 11:33 WC - Today's Visit Information Type of service Follow-up Visit (Physician/SCRIPT DEVELOPER ) Arrival Mode Ambulatory,Cane Patient Identification Verified (Name & Yes ) Patient Requires Transmission-Based No Precautions Height and Weight Body Mass Index (BMI) 25.7 BMI Classification Overweight Vital Signs Temperature (97.8 F-99.1 F) 96.1 F L Temperature Source Temporal Pulse Rate (60-100) 73 Pulse Location Monitor Blood Pressure (90/60-120/80) 149/71 H Blood Pressure Mean (mm Hg) 97 Source Monitor History Since Last Visit- (Skip if this is Patient's initial visit) Have you changed medications since your No last visit? Any new allergies or adverse reactions No Had a fall/change in ADL's that may No increase risk of falls Signs or symptoms of abuse and/or No neglect since last visit Have you been in the hospital since your No last visit? Has dressing in place as prescribed Yes Has compression in place as prescribed No Has offloadiing in place as prescribed N/A Experienced any changes in pain level or No management Left Footwear Regular Shoe Right Footwear Regular Shoe Pain Scale: 0-10 Numeric Is Patient Pain Free? Yes - Nurse 1 - General Ulcer Measurement Start: 01/29/22 11:09 Freq: Status: Active Protocol: Activity Type Activity Date Activity User E-sign Co-sign Detail Recorded Client Recorded Date Recorded By Document 01/29/22 11:33 PL [id number] 01/29/22 11:35 PL 01/29/22 11:33 Wound Center Nurse 1 #2 Left Gr Toe -Combined with other wound No -Current Size (cm) - Length 0.2 -Current Size (cm) - Width 0.1 -Current Size (cm) - Depth 0.1 -Total Square Cm 0.02 -Date of Last Picture (Recall this 01/29/22 field) -Photo Taken Yes -Tunneling No -Undermining/Tunneling No -Circular Undermining No -Exudate Amt Small -Exudate Type Serosanguineous -Wound Margin Distinct, Outline Attached -Granulation Amt Small (1-33%) -Granulation Quality [place] -Slough/Fibrin Yes -Necrosis Amt Small (1-33%) -Necrotic Tissue Type Adherent Slough -Structure Exposed N/A -Texture (Vangie-wound Skin Appearance) Assessed,Callus -Moisture (Vangie-wound Skin Appearance) No Abnormality, Assessed -Color (Vangie-wound Skin Appearance) No Abnormality, Assessed -Temperature (Vangie-wound Skin No Abnormality Appearance) (Pt Warm) -Tenderness on Palpation (Vangie-wound No Skin Appearance) -Ulcer Cleansing Rinsed/ Irrigated with Saline -Foul Odor after Cleansing No -Anesthetic Used 5% Lidocaine Gel WC - Nurse 2 - General Ulcer CM Notes Start: 01/29/22 11:09 Freq: Status: Active Protocol: Activity Type Activity Date Activity User E-sign Co-sign Detail Recorded Client Recorded Date Recorded By Document 01/29/22 12:19 PL [id number] 01/29/22 12:20 PL 01/29/22 12:19 Wound Center Nurse 2 -Time 10:57 -Correct Patient Yes -Correct Side, Site, Position Yes -Correct Procedure Yes -Procedure Performed Yes -Type of Procedure Debridement -Clinical Debridement Subcutaneous -Tissue Removed Subcutaneous -Post Debridement (cm) - Length 0.2 -Post Debridement (cm) - Width 0.1 -Post Debridement (cm) - Depth 0.1 -Total Square (Post) (cm) 0.02 -Area of Debridement (cm) - Length 0.2 -Area of Debridement (cm) - Width 0.1 -Total Square (Area) (cm) 0.02 -Tunneling No -Undermining/Tunneling No -Circular Undermining No -Wound/Ulcer Outcome Not Healed -Ulcer Cleansing Rinsed/ Irrigated with Saline -Foul Odor after Cleansing No -Bioengineered Tissue No -Bleeding Controlled with Pressure -Treatment Response Procedure Tolerated Well -Debridement - Subq, 1st 20sq cm Yes Pain Scale: 0-10 Numeric Is Patient Pain Free? Yes WC - Nurse 3 - General Ulcer D/C NN Start: 01/29/22 11:09 Freq: Status: Active Protocol: Activity Type Activity Date Activity User E-sign Co-sign Detail Recorded Client Recorded Date Recorded By Document 01/29/22 11:09 TORSTEN [id number] 01/29/22 11:10 TORSTEN 01/29/22 11:09 Wound Care Nurse 3 #2 Left Gr Toe -Ulcer Cleansing Rinsed/ Irrigated with Saline -Primary Dressing Applied C Hydrogel ($), NonAdherent Contact Layer -Primary Dressing Covered/Secured with Dry Gauze, Secured with Tape Pain Scale: 0-10 Numeric Is Patient Pain Free? Yes WC - Visit Discharge Discharge Condition Stable Ambulatory Status Ambulatory Transportation Private Auto Assessment/Plan Assessment/Plan (1) Non-pressure chronic ulcer of left calf with fat layer exposed: CODE(S): L97.222 - Non-pressure chronic ulcer of left calf with fat layer exposed (2) Non-pressure chronic ulcer of right calf with fat layer exposed: CODE(S): L97.212 - Non-pressure chronic ulcer of right calf with fat layer exposed (3) Non-pressure chronic ulcer of right ankle with fat layer exposed: CODE(S): L97.312 - Non-pressure chronic ulcer of right ankle with fat layer exposed (4) Non-pressure 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: CODE(S): L97.522 - Non-pressure 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 (5) Varicose veins of left lower extremity with ulcer of calf: CODE(S): I83.022 - Varicose veins of left lower extremity with ulcer of calf (6) Chronic venous insufficiency: (7) Leg edema, left: CODE(S): R60.0 - Localized edema PLAN: Plan This is an 86-year-old female with history of COPD and spinal stenosis who presents to the wound care clinic for follow-up left medial hallux IPJ ulceration secondary to decreased range of motion at the first metatarsophalangeal joint due to end-stage arthritis. Patient seen and evaluated. I discussed her case today. 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 I debrided the left hallux medial IPJ hyperkeratotic tissue as stated in the clinical panel above. Ulceration site demonstrates no signs of infection.? Left hallux ulceration site is showing progression and decreasing in size overall with evidence of new skin formation across the wound bed, but still has some callus buildup about the site. This wound is continuing to near closure, but continued pressure reduction is essential.? She continues to offload the first metatarsophalangeal joint and hallux with an offloading pad to the plantar first metatarsal head and about the hallux. Hallux ulceration site was dressed with hydrogel offloading pad to the first metatarsophalangeal joint and about the wound site on the Hallux.? I discussed continued offloading of the hallux ulceration site with felt pads & surgical shoe. I discussed possible surgical intervention again with her today to remove a portion of bone at the interphalangeal joint of her hallux for pressure reduction and ultimately healing of the ulcerative site.? She states she will think about this. Patient to continue to elevate lower extremities in addition to wearing her Tubigrip compression stockings bilateral to aid in edema control.? I discussed with her that she is to continue to elevate her feet at times of rest and dorsiflex and plantarflex her foot a few times to aid in venous return by utilization of her calf muscle.? Patient voices understanding of this. The following work up and care recommendations were made: Dressing: Hydrogel left hallux, DSD, cotton, Coban and an offloading pad to the first metatarsophalangeal joint and about the hallux Wash: Soap and water Tissue growth optimization: Chuyita Offload: Offloading dressing of the first metatarsophalangeal joint and left hallux Vascular: Vascular status intact with palpable pedal pulses. She had venous studies performed confirming reflux of the left great saphenous vein with no deep venous thrombosis bilaterally. Edema: Elevation of the left lower extremity and right lower extremity control to control edema.? Patient instructed to wear double Tubigrip stockings Infection: No localized signs of infection Pain: May take [id number] Tylenol, safe oral anti-inflammatory use discussed. Host factors: Chronic venous insufficiency ? I answered all the patient's questions.? To return to the wound healing center in 1 week or call sooner if the patient has any questions or concerns. Note: [employer] speech recognition new accounts representative software was used to create portions of this document. Sound-alike and misspelled words, as well as other new accounts representative errors may be contained in the documentation.
[2022-02-05 11:39] VITALS: BP 149/65; PULSE 66; TEMP 36.3; BMI 25.7
--- NOTE | 2022-02-05 14:41 | PCM.WC.PN ---
History of Present Illness Date of Service: 02/05/22 Chief Complaint: Bilateral knee wound History of Wound: Ms. Castro is an 86-year-old who is currently being seen for below knee ulcers however I was asked to see due to nonhealing bilateral knee wound. Said to have been sustained about 2 weeks ago when she fell on her knees. Initially had apply Chuyita to the area however, worsening was noted this week. She states that there has been a lot of rubbing underneath her clothing and so dressing has not stayed on adequately. She feels well. Denies chills, fever or feeling of unwell. 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 She has been applying offloading padding subfirst metatarsophalangeal joint and about the hallux. Patient denies any constitutional symptoms. Patient has no further complaints. Objective Data Objective Data Vital Signs: Vital Signs Temp Pulse Resp BP 97.3 F L 66 16 149/65 H 02/05/22 11:39 02/05/22 11:39 01/23/22 00:30 02/05/22 11:39 Weight: 70.307 kg Body Mass Index (BMI) 25.7 Physical Exam Const alert, oriented x3 and no apparent distress General Appearance: cooperative and comfortable HEENT normocephalic Eyes General Eye: normal appearance of both eyes Neck General: normal visual inspection Lymph Lymphatic: no lymphadenopathy noted and no lymphedema noted Resp normal respiratory effort Cardio regular rate and regular rhythm Extremity normal capillary refill, no joint enlargement, no calf tenderness and no pedal edema Right Lower Extremity: foot and digits Positive for ROM (Decreased range of motion at the first metatarsophalangeal joint secondary to end-stage hallux limitus/rigidus) Left Lower Extremity: foot and digits Positive for ROM (Decreased range of motion at the first metatarsophalangeal joint secondary to end-stage hallux limitus/rigidus) Skin no rashes or lesions noted, skin turgor normal and no jaundice General Skin Exam: venous stasis and dermatitis Wound Narrative: Skin intact with brawny discoloration and hemosiderin position and right lower extremity secondary to venous insufficiency/stasis ulceration anteriorly healed.? No signs of infection. Left hallux sub-IPJ ulceration demonstrates healthy granular base with surrounding hyperkeratotic tissue. No signs of infection. Right lower extremity lateral ankle ulceration remains healed.? No localized signs of infection Neuro oriented x3 and moves all extremities Debridement Note Debridement Note Wound debrided: Plantar hallux IPJ Laterality: Left Wound Grade/Stage: Russell stage I Type of Debridement: Excisional debridement Anesthesia Used: 5% Lidocaine Gel Depth: Down to and including healthy tissue and in the subcutaneous layer Percentage of wound debrided: 100 Instrument Used: #15 blade Tissue Removed: Fibrous, devitalized subcutaneous, biofilm, slough Severity: Fat Layer Exposed Amount of bleeding with debridement: Mild Bleeding Controlled with: Compression and gauze Patient tolerated procedure: Patient tolerated procedure well Post-Debridement Measurements and Additional Note: Post-Debridement Measurements/Treatment - Nurse 1 - General Ulcer Assessment Start: 01/29/22 11:09 Freq: Status: Active Protocol: BRAN.[place] Activity Type Activity Date Activity User E-sign Co-sign Detail Recorded Client Recorded Date Recorded By Document 01/29/22 11:33 PL [id number] 01/29/22 11:35 PL Document 02/05/22 11:39 AK [id number] 02/05/22 11:41 AK 01/29/22 02/05/22 11:33 11:39 - Today's Visit Information Type of service Follow-up Visit Follow-up Visit (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 ) ) Arrival Mode Ambulatory,Cane Ambulatory,Cane Patient Identification Verified (Name & Yes Yes ) Patient Requires Transmission-Based No No Precautions Height and Weight Body Mass Index (BMI) 25.7 25.7 BMI Classification Overweight Overweight Vital Signs Temperature (97.8 F-99.1 F) 96.1 F L 97.3 F L Temperature Source Temporal Temporal Pulse Rate (60-100) 73 66 Pulse Location Monitor Monitor Blood Pressure (90/60-120/80) 149/71 H 149/65 H Blood Pressure Mean (mm Hg) 97 93 Source Monitor Monitor History Since Last Visit- (Skip if this is Patient's initial visit) Have you changed medications since your No No last visit? Any new allergies or adverse reactions No No Had a fall/change in ADL's that may No No increase risk of falls Signs or symptoms of abuse and/or No No neglect since last visit Have you been in the hospital since your No No last visit? Has dressing in place as prescribed Yes Yes Has compression in place as prescribed No Yes Has offloadiing in place as prescribed N/A N/A Experienced any changes in pain level or No No management Left Footwear Regular Shoe Regular Shoe Right Footwear Regular Shoe Regular Shoe Pain Scale: 0-10 Numeric Is Patient Pain Free? Yes Yes WC - Nurse 1 - General Ulcer Measurement Start: 01/29/22 11:09 Freq: Status: Active Protocol: Activity Type Activity Date Activity User E-sign Co-sign Detail Recorded Client Recorded Date Recorded By Document 01/29/22 11:33 PL [id number] 01/29/22 11:35 PL Document 02/05/22 11:39 AK [id number] 02/05/22 11:41 AK 01/29/22 02/05/22 11:33 11:39 Wound Center Nurse 1 #2 Left Gr Toe -Combined with other wound No No -Current Size (cm) - Length 0.2 0.2 -Current Size (cm) - Width 0.1 0.2 -Current Size (cm) - Depth 0.1 0.2 -Total Square Cm 0.02 0.04 -Date of Last Picture (Recall this 01/29/22 field) -Photo Taken Yes No -Tunneling No No -Undermining/Tunneling No No -Circular Undermining No No -Change in Wound Grade/Stage No -Exudate Amt Small Small -Exudate Type Serosanguineous Serosanguineous -Wound Margin Distinct, Distinct, Outline Outline Attached Attached -Granulation Amt Small (1-33%) Small (1-33%) -Granulation Quality [place] N/A -Slough/Fibrin Yes No -Necrosis Amt Small (1-33%) Small (1-33%) -Necrotic Tissue Type Adherent Slough Adherent Slough -Structure Exposed N/A N/A -Texture (Vangie-wound Skin Appearance) Assessed,Callus No Abnormality, Assessed -Moisture (Vangie-wound Skin Appearance) No Abnormality, No Abnormality, Assessed Assessed -Color (Vangie-wound Skin Appearance) No Abnormality, No Abnormality, Assessed Assessed -Temperature (Vangie-wound Skin No Abnormality No Abnormality Appearance) (Pt Warm) (Pt Warm) -Tenderness on Palpation (Vangie-wound No No Skin Appearance) -Ulcer Cleansing Rinsed/ Rinsed/ Irrigated with Irrigated with Saline Saline -Foul Odor after Cleansing No No -Anesthetic Used 5% Lidocaine 5% Lidocaine Gel Gel BRAN - Nurse 2 - General Ulcer CM Notes Start: 01/29/22 11:09 Freq: Status: Active Protocol: Activity Type Activity Date Activity User E-sign Co-sign Detail Recorded Client Recorded Date Recorded By Document 01/29/22 12:19 PL [id number] 01/29/22 12:20 PL Document 02/05/22 12:57 PL [id number] 02/05/22 12:58 PL 01/29/22 02/05/22 12:19 12:57 Wound Center Nurse 2 #2 Left Gr Toe -Time 10:57 11:26 -Correct Patient Yes Yes -Correct Side, Site, Position Yes Yes -Correct Procedure Yes Yes -Procedure Performed Yes Yes -Type of Procedure Debridement Debridement -Clinical Debridement Subcutaneous Subcutaneous -Tissue Removed Subcutaneous Subcutaneous -Post Debridement (cm) - Length 0.2 0.1 -Post Debridement (cm) - Width 0.1 0.1 -Post Debridement (cm) - Depth 0.1 0.1 -Total Square (Post) (cm) 0.02 0.01 -Area of Debridement (cm) - Length 0.2 0.1 -Area of Debridement (cm) - Width 0.1 0.1 -Total Square (Area) (cm) 0.02 0.01 -Tunneling No No -Undermining/Tunneling No No -Circular Undermining No No -Wound/Ulcer Outcome Not Healed Not Healed -Ulcer Cleansing Rinsed/ Rinsed/ Irrigated with Irrigated with Saline Saline -Foul Odor after Cleansing No No -Bioengineered Tissue No No -Bleeding Controlled with Pressure Pressure -Treatment Response Procedure Procedure Tolerated Well Tolerated Well -Debridement - Subq, 1st 20sq cm Yes Yes Pain Scale: 0-10 Numeric Is Patient Pain Free? Yes Yes BRAN - Nurse 3 - General Ulcer D/C NN Start: 01/29/22 11:09 Freq: Status: Active Protocol: Activity Type Activity Date Activity User E-sign Co-sign Detail Recorded Client Recorded Date Recorded By Document 01/29/22 11:09 KR [id number] 01/29/22 11:10 KR Document 02/05/22 11:39 AK [id number] 02/05/22 11:41 PA 01/29/22 02/05/22 11:09 11:39 Wound Care Nurse 3 #2 Left Gr Toe -Ulcer Cleansing Rinsed/ Rinsed/ Irrigated with Irrigated with Saline Saline -Foul Odor after Cleansing No -Negative Pressure Wound Therapy N/A -Primary Dressing Applied C Hydrogel ($), NonAdherent Contact Layer -Primary Dressing Covered/Secured with Dry Gauze, Dry Gauze & Secured with Roll Gauze, Tape Secured with Tape Vital Signs Temperature (97.8 F-99.1 F) 97.3 F L Temperature Source Temporal Pulse Rate (60-100) 66 Pulse Location Monitor Blood Pressure (90/60-120/80) 149/65 H Blood Pressure Mean (mm Hg) 93 Source Monitor Pain Scale: 0-10 Numeric Is Patient Pain Free? Yes Yes WC - Visit Discharge Discharge Condition Stable Stable Ambulatory Status Ambulatory Ambulatory Transportation Private Auto Private Auto Medication Reconcilliation completed & Yes provided to patient/care provider Clinical Summary of Care Provided Yes Assessment/Plan Assessment/Plan (1) Non-pressure chronic ulcer of left calf with fat layer exposed: CODE(S): L97.222 - Non-pressure chronic ulcer of left calf with fat layer exposed (2) Non-pressure chronic ulcer of right calf with fat layer exposed: CODE(S): L97.212 - Non-pressure chronic ulcer of right calf with fat layer exposed (3) Non-pressure chronic ulcer of right ankle with fat layer exposed: CODE(S): L97.312 - Non-pressure chronic ulcer of right ankle with fat layer exposed (4) Non-pressure 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: CODE(S): L97.522 - Non-pressure 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 (5) Varicose veins of left lower extremity with ulcer of calf: CODE(S): I83.022 - Varicose veins of left lower extremity with ulcer of calf (6) Chronic venous insufficiency: (7) Leg edema, left: CODE(S): R60.0 - Localized edema PLAN: Plan This is an 86-year-old female with history of COPD and spinal stenosis who presents to the wound care clinic for follow-up left medial hallux IPJ ulceration secondary to decreased range of motion at the first metatarsophalangeal joint due to end-stage arthritis. Patient seen and evaluated. I discussed her case today. 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 I debrided the left hallux medial IPJ hyperkeratotic tissue as stated in the clinical panel above. Ulceration site demonstrates no signs of infection.? Left hallux ulceration site is showing progression and decreasing in size overall with evidence of new skin formation across the wound bed, but still has some callus buildup about the site. This wound is continuing to near closure, but continued pressure reduction is essential.? She continues to offload the first metatarsophalangeal joint and hallux with an offloading pad to the plantar first metatarsal head and about the hallux. Hallux ulceration site was dressed with hydrogel offloading pad to the first metatarsophalangeal joint and about the wound site on the Hallux.? I discussed continued offloading of the hallux ulceration site with felt pads & surgical shoe. I again discussed possible surgical intervention again with her today to remove a portion of bone at the interphalangeal joint of her hallux for pressure reduction and ultimately healing of the ulcerative site.? She continues to state that she will think about this. Patient to continue to elevate lower extremities in addition to wearing her Tubigrip compression stockings bilateral to aid in edema control.? I discussed with her that she is to continue to elevate her feet at times of rest and dorsiflex and plantarflex her foot a few times to aid in venous return by utilization of her calf muscle.? Patient voices understanding of this. The following work up and care recommendations were made: Dressing: Hydrogel left hallux, DSD, cotton, Coban and an offloading pad to the first metatarsophalangeal joint and about the hallux Wash: Soap and water Tissue growth optimization: Chuyita Offload: Offloading dressing of the first metatarsophalangeal joint and left hallux Vascular: Vascular status intact with palpable pedal pulses. She had venous studies performed confirming reflux of the left great saphenous vein with no deep venous thrombosis bilaterally. Edema: Elevation of the left lower extremity and right lower extremity control to control edema.? Patient instructed to wear double Tubigrip stockings Infection: No localized signs of infection Pain: May take [id number] Tylenol, safe oral anti-inflammatory use discussed. Host factors: Chronic venous insufficiency ? I answered all the patient's questions.? To return to the wound healing center in 1 week or call sooner if the patient has any questions or concerns. Note: [email or web address] speech recognition electrical/instrument technician software was used to create portions of this document. Sound-alike and misspelled words, as well as other electrical/instrument technician errors may be contained in the documentation.
[2022-02-12 10:29] VITALS: BP 147/69; PULSE 69; TEMP 36.1; BMI 25.7
--- NOTE | 2022-02-12 13:10 | PN.PCM_ITS ---
History of Present Illness Date of Service: 02/12/22 Chief Complaint: Bilateral knee wound History of Wound: Ms. Castro is an 86-year-old who is currently being seen for below knee ulcers however I was asked to see due to nonhealing bilateral knee wound. Said to have been sustained about 2 weeks ago when she fell on her knees. Initially had apply Chuyita to the area however, worsening was noted this week. She states that there has been a lot of rubbing underneath her clothing and so dressing has not stayed on adequately. She feels well. Denies chills, fever or feeling of unwell. 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 She has been applying offloading padding subfirst metatarsophalangeal joint and about the hallux. She feels the site is almost closed. Patient denies any constitutional symptoms. Patient has no further complaints. Objective Data Objective Data Vital Signs: Vital Signs Temp Pulse Resp BP 97.0 F L 69 16 147/69 H 02/12/22 10:29 02/12/22 10:29 01/23/22 00:30 02/12/22 10:29 Weight: 70.307 kg Body Mass Index (BMI) 25.7 Physical Exam Const alert, oriented x3 and no apparent distress General Appearance: cooperative and comfortable HEENT normocephalic Eyes General Eye: normal appearance of both eyes Neck General: normal visual inspection Lymph Lymphatic: no lymphadenopathy noted and no lymphedema noted Resp normal respiratory effort Cardio regular rate and regular rhythm Extremity normal capillary refill, no joint enlargement, no calf tenderness and no pedal edema Right Lower Extremity: foot and digits Positive for ROM (Decreased range of motion at the first metatarsophalangeal joint secondary to end-stage hallux limitus/rigidus) Left Lower Extremity: foot and digits Positive for ROM (Decreased range of motion at the first metatarsophalangeal joint secondary to end-stage hallux limitus/rigidus) Skin no rashes or lesions noted, skin turgor normal and no jaundice General Skin Exam: venous stasis and dermatitis Wound Narrative: Skin intact with brawny discoloration and hemosiderin position and right lower extremity secondary to venous insufficiency/stasis ulceration anteriorly healed.? No signs of infection. Left hallux sub-IPJ ulceration demonstrates healthy granular base with surrounding hyperkeratotic tissue. No signs of infection. Right lower extremity lateral ankle ulceration remains healed.? No localized signs of infection Neuro oriented x3 and moves all extremities Debridement Note Debridement Note Wound debrided: Plantar left hallux IPJ Laterality: Left Wound Grade/Stage: Russell stage I Type of Debridement: Excisional debridement Anesthesia Used: 5% Lidocaine Gel Depth: Down to and including healthy tissue and in the subcutaneous layer Percentage of wound debrided: 100 Instrument Used: - (313 blade) Tissue Removed: Fibrous, devitalized subcutaneous, biofilm, slough Severity: Fat Layer Exposed Amount of bleeding with debridement: Mild Bleeding Controlled with: Compression and gauze Patient tolerated procedure: Patient tolerated procedure well Post-Debridement Measurements and Additional Note: Post-Debridement Measurements/Treatment WC - Nurse 1 - General Ulcer Assessment Start: 01/29/22 11:09 Freq: Status: Active Protocol: [email or web address] Activity Type Activity Date Activity User E-sign Co-sign Detail Recorded Client Recorded Date Recorded By Document 01/29/22 11:33 PL [id number] 01/29/22 11:35 PL Document 02/05/22 11:39 AK [id number] 02/05/22 11:41 AK Document 02/12/22 10:29 KR [id number] 02/12/22 10:33 KR 01/29/22 02/05/22 02/12/22 11:33 11:39 10:29 - Today's Visit Information Type of service Follow-up Visit Follow-up Visit Follow-up Visit (Physician/YARN SKEINS EXAMINER (Physician/YARN SKEINS EXAMINER (Physician/YARN SKEINS EXAMINER ) ) ) Arrival Mode Ambulatory,Cane Ambulatory,Cane Ambulatory,Cane Patient Identification Verified (Name & Yes Yes Yes ) Patient Requires Transmission-Based No No Precautions Height and Weight Body Mass Index (BMI) 25.7 25.7 25.7 BMI Classification Overweight Overweight Overweight Vital Signs Temperature (97.8 F-99.1 F) 96.1 F L 97.3 F L 97.0 F L Temperature Source Temporal Temporal Temporal Pulse Rate (60-100) 73 66 69 Pulse Location Monitor Monitor Monitor Blood Pressure (90/60-120/80) 149/71 H 149/65 H 147/69 H Blood Pressure Mean (mm Hg) 97 93 95 Source Monitor Monitor Monitor Position Sitting Blood Pressure Location Right Arm History Since Last Visit- (Skip if this is Patient's initial visit) Have you changed medications since your No No No last visit? Any new allergies or adverse reactions No No No Had a fall/change in ADL's that may No No No increase risk of falls Signs or symptoms of abuse and/or No No No neglect since last visit Have you been in the hospital since your No No No last visit? Has dressing in place as prescribed Yes Yes Yes Has compression in place as prescribed No Yes N/A Has offloadiing in place as prescribed N/A N/A N/A Experienced any changes in pain level or No No No management Left Footwear Regular Shoe Regular Shoe Regular Shoe Right Footwear Regular Shoe Regular Shoe Regular Shoe Pain Scale: 0-10 Numeric Is Patient Pain Free? Yes Yes Yes WC - Nurse 1 - General Ulcer Measurement Start: 01/29/22 11:09 Freq: Status: Active Protocol: Activity Type Activity Date Activity User E-sign Co-sign Detail Recorded Client Recorded Date Recorded By Document 01/29/22 11:33 PL [id number] 01/29/22 11:35 PL Document 02/05/22 11:39 AK [id number] 02/05/22 11:41 AK Document 02/12/22 10:29 KR [id number] 02/12/22 10:33 KR 01/29/22 02/05/22 02/12/22 11:33 11:39 10:29 Wound Center Nurse 1 #2 Left Gr Toe -Combined with other wound No No -Current Size (cm) - Length 0.2 0.2 0.2 -Current Size (cm) - Width 0.1 0.2 0.2 -Current Size (cm) - Depth 0.1 0.2 0.1 -Total Square Cm 0.02 0.04 0.04 -Date of Last Picture (Recall this 01/29/22 field) -Photo Taken Yes No -Tunneling No No -Undermining/Tunneling No No -Circular Undermining No No -Change in Wound Grade/Stage No -Exudate Amt Small Small Small -Exudate Type Serosanguineous Serosanguineous Serosanguineous -Wound Margin Distinct, Distinct, Distinct, Outline Outline Outline Attached Attached Attached -Granulation Amt Small (1-33%) Small (1-33%) Small (1-33%) -Granulation Quality [place] N/A Red -Slough/Fibrin Yes No -Necrosis Amt Small (1-33%) Small (1-33%) None Present (0 %) -Necrotic Tissue Type Adherent Slough Adherent Slough -Structure Exposed N/A N/A -Texture (Vangie-wound Skin Appearance) Assessed,Callus No Abnormality, Assessed, Assessed Scarring -Moisture (Vangie-wound Skin Appearance) No Abnormality, No Abnormality, No Abnormality, Assessed Assessed Assessed -Color (Vangie-wound Skin Appearance) No Abnormality, No Abnormality, Assessed, Assessed Assessed Erythema -Temperature (Vangie-wound Skin No Abnormality No Abnormality No Abnormality Appearance) (Pt Warm) (Pt Warm) (Pt Warm) -Tenderness on Palpation (Vangie-wound No No No Skin Appearance) -Ulcer Cleansing Rinsed/ Rinsed/ Rinsed/ Irrigated with Irrigated with Irrigated with Saline Saline Saline -Foul Odor after Cleansing No No No -Anesthetic Used 5% Lidocaine 5% Lidocaine 5% Lidocaine Gel Gel Gel WC - Nurse 2 - General Ulcer CM Notes Start: 01/29/22 11:09 Freq: Status: Active Protocol: Activity Type Activity Date Activity User E-sign Co-sign Detail Recorded Client Recorded Date Recorded By Document 01/29/22 12:19 [id number] 01/29/22 12:20 Document 02/05/22 12:57 [id number] 02/05/22 12:58 Document 02/12/22 13:01 [id number] 02/12/22 13:02 01/29/22 02/05/22 02/12/22 12:19 12:57 13:01 Wound Center Nurse 2 #2 Left Gr Toe -Time 10:57 11:26 11:10 -Correct Patient Yes Yes Yes -Correct Side, Site, Position Yes Yes Yes -Correct Procedure Yes Yes Yes -Procedure Performed Yes Yes Yes -Type of Procedure Debridement Debridement Debridement -Clinical Debridement Subcutaneous Subcutaneous Subcutaneous -Tissue Removed Subcutaneous Subcutaneous Subcutaneous -Post Debridement (cm) - Length 0.2 0.1 0.2 -Post Debridement (cm) - Width 0.1 0.1 0.2 -Post Debridement (cm) - Depth 0.1 0.1 0.1 -Total Square (Post) (cm) 0.02 0.01 0.04 -Area of Debridement (cm) - Length 0.2 0.1 0.2 -Area of Debridement (cm) - Width 0.1 0.1 0.2 -Total Square (Area) (cm) 0.02 0.01 0.04 -Tunneling No No No -Undermining/Tunneling No No No -Circular Undermining No No No -Wound/Ulcer Outcome Not Healed Not Healed Not Healed -Ulcer Cleansing Rinsed/ Rinsed/ Rinsed/ Irrigated with Irrigated with Irrigated with Saline Saline Saline -Foul Odor after Cleansing No No No -Bioengineered Tissue No No No -Bleeding Controlled with Pressure Pressure Pressure -Treatment Response Procedure Procedure Procedure Tolerated Well Tolerated Well Tolerated Well -Debridement - Subq, 1st 20sq cm Yes Yes Yes Pain Scale: 0-10 Numeric Is Patient Pain Free? Yes Yes Yes WC - Nurse 3 - General Ulcer D/C NN Start: 01/29/22 11:09 Freq: Status: Active Protocol: Activity Type Activity Date Activity User E-sign Co-sign Detail Recorded Client Recorded Date Recorded By Document 01/29/22 11:09 KR [id number] 01/29/22 11:10 KR Document 02/05/22 11:39 AK [id number] 02/05/22 11:41 AK Document 02/12/22 11:24 KR [id number] 02/12/22 11:25 KR 01/29/22 02/05/22 02/12/22 11:09 11:39 11:24 Wound Care Nurse 3 #2 Left Gr Toe -Ulcer Cleansing Rinsed/ Rinsed/ Rinsed/ Irrigated with Irrigated with Irrigated with Saline Saline Saline -Foul Odor after Cleansing No -Negative Pressure Wound Therapy N/A -Primary Dressing Applied C Hydrogel ($), C Hydrogel ($) NonAdherent Contact Layer -Primary Dressing Covered/Secured with Dry Gauze, Dry Gauze & Dry Gauze, Secured with Roll Gauze, Secured with Tape Secured with Tape Tape Vital Signs Temperature (97.8 F-99.1 F) 97.3 F L Temperature Source Temporal Pulse Rate (60-100) 66 Pulse Location Monitor Blood Pressure (90/60-120/80) 149/65 H Blood Pressure Mean (mm Hg) 93 Source Monitor Pain Scale: 0-10 Numeric Is Patient Pain Free? Yes Yes Yes WC - Visit Discharge Discharge Condition Stable Stable Stable Ambulatory Status Ambulatory Ambulatory Ambulatory Transportation Private Auto Private Auto Private Auto Accompanied by aid Medication Reconcilliation completed & Yes provided to patient/care provider Clinical Summary of Care Provided Yes Assessment/Plan Assessment/Plan (1) Non-pressure chronic ulcer of left calf with fat layer exposed: CODE(S): L97.222 - Non-pressure chronic ulcer of left calf with fat layer exposed (2) Non-pressure chronic ulcer of right calf with fat layer exposed: CODE(S): L97.212 - Non-pressure chronic ulcer of right calf with fat layer exposed (3) Non-pressure chronic ulcer of right ankle with fat layer exposed: CODE(S): L97.312 - Non-pressure chronic ulcer of right ankle with fat layer exposed (4) Non-pressure 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: CODE(S): L97.522 - Non-pressure 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 (5) Varicose veins of left lower extremity with ulcer of calf: CODE(S): I83.022 - Varicose veins of left lower extremity with ulcer of calf (6) Chronic venous insufficiency: (7) Leg edema, left: CODE(S): R60.0 - Localized edema PLAN: Plan Patient seen and evaluated. I discussed her case today. 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 I debrided the left hallux medial IPJ hyperkeratotic tissue as stated in the clinical panel above. Ulceration site demonstrates no signs of infection.? Left hallux ulceration site is showing progression and decreasing in size overall with continued evidence of new skin formation across the wound bed, but still has some callus buildup about the site. This wound is almost closed, but continued pressure reduction is essential.?She continues to offload the first metatarsophalangeal joint and hallux with an offloading pad to the plantar first metatarsal head and about the hallux. Hallux ulceration site was dressed with hydrogel offloading pad to the first metatarsophalangeal joint and about the wound site on the Hallux.? I discussed continued offloading of the hallux ulceration site with felt pads & surgical shoe. I again discussed possible surgical intervention again with her today to remove a portion of bone at the interphalangeal joint of her hallux for pressure reduction and ultimately healing of the ulcerative site.?She continues to state that she will think about this. I answered all questions today regarding the surgical procedure and expected recovery time and management. Patient to continue to elevate lower extremities in addition to wearing her Tubigrip compression stockings bilateral to aid in edema control.?I discussed with her that she is to continue to elevate her feet at times of rest and dorsiflex and plantarflex her foot a few times to aid in venous return by utilization of her calf muscle.? Patient voices understanding of this. The following work up and care recommendations were made: Dressing: Hydrogel left hallux, DSD, cotton, Coban and an offloading pad to the first metatarsophalangeal joint and about the hallux Wash: Soap and water Tissue growth optimization: Chuyita Offload: Offloading dressing of the first metatarsophalangeal joint and left hallux Vascular: Vascular status intact with palpable pedal pulses. She had venous studies performed confirming reflux of the left great saphenous vein with no deep venous thrombosis bilaterally. Edema: Elevation of the left lower extremity and right lower extremity control to control edema.?Patient instructed to wear double Tubigrip stockings Infection: No localized signs of infection Pain: May take [id number] Tylenol, safe oral anti-inflammatory use discussed. Host factors: Chronic venous insufficiency ? I answered all the patient's questions.? To return to the wound healing center in 2 weeks or call sooner if the patient has any questions or concerns. Note: [employer] speech recognition technical support internship software was used to create portions of this document. Sound-alike and misspelled words, as well as other technical support internship errors may be contained in the documentation.
== END 2022-02-22 23:59 | disposition home or self-care (01) ==
LOC: WC 10:15
PROVIDERS: PCP Family Medicine; Visit Provider Student in an Organized Health Care Education/Training Program
DX: L97.522 Non-pressure 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 (principal); L97.312 Non-pressure chronic ulcer of right ankle with fat layer exposed; L97.212 Non-pressure chronic ulcer of right calf with fat layer exposed; L97.222 Non-pressure chronic ulcer of left calf with fat layer exposed; I83.022 Varicose veins of left lower extremity with ulcer of calf; I87.2 Venous insufficiency (chronic) (peripheral); R60.0 Localized edema
CPT/HCPCS: 11042

== ENCOUNTER 2022-03-19 10:15 | Outpatient (RCR) | payer MEDICARE, OTHER, SELFPAY ==
[2022-02-23 00:25] VITALS: BP 147/69; PULSE 69; RESP 16; TEMP 36.1; BMI 25.7
[2022-02-26 10:37] VITALS: BP 161/79; PULSE 86; TEMP 35.8; BMI 25.7
--- NOTE | 2022-02-26 13:54 | PCM.WC.PN ---
History of Present Illness Date of Service: 02/26/22 Chief Complaint: Bilateral knee wound History of Wound: Ms. Castro is an 86-year-old who is currently being seen for below knee ulcers however I was asked to see due to nonhealing bilateral knee wound. Said to have been sustained about 2 weeks ago when she fell on her knees. Initially had apply Chuyita to the area however, worsening was noted this week. She states that there has been a lot of rubbing underneath her clothing and so dressing has not stayed on adequately. She feels well. Denies chills, fever or feeling of unwell. 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 She has been applying offloading padding subfirst metatarsophalangeal joint and about the hallux.? She states that a scab fell off of her left leg revealing a new wound. Patient denies any constitutional symptoms. Patient has no further complaints. Objective Data Objective Data Vital Signs: Vital Signs Temp Pulse Resp BP 96.5 F L 86 16 161/79 H 02/26/22 10:37 02/26/22 10:37 02/23/22 00:25 02/26/22 10:37 Weight: 70.307 kg Body Mass Index (BMI) 25.7 Physical Exam Const alert, oriented x3 and no apparent distress General Appearance: cooperative and comfortable HEENT normocephalic Eyes General Eye: normal appearance of both eyes Neck General: normal visual inspection Lymph Lymphatic: no lymphadenopathy noted and no lymphedema noted Resp normal respiratory effort Cardio regular rate and regular rhythm Extremity normal capillary refill, no joint enlargement, no calf tenderness and no pedal edema Extremity Narrative: Right Lower Extremity: foot and digits Positive for ROM (Decreased range of motion at the first metatarsophalangeal joint secondary to end-stage hallux limitus/rigidus) Left Lower Extremity: foot and digits Positive for ROM (Decreased range of motion at the first metatarsophalangeal joint secondary to end-stage hallux limitus/rigidus) Skin no rashes or lesions noted, skin turgor normal and no jaundice General Skin Exam: venous stasis and dermatitis Wound Narrative: Left lower extremity: Skin intact with brawny discoloration and hemosiderin deposition secondary to venous insufficiency/stasis.? There is a new ulceration left anterior medial lower extremity measuring 1 cm x 1.1 cm x 0.1 cm. No signs of infection. Left hallux sub-IPJ ulceration demonstrates healthy granular base with surrounding hyperkeratotic tissue. No signs of infection. Right lower extremity lateral ankle ulceration remains healed.? No localized signs of infection Neuro oriented x3 and moves all extremities Debridement Note Debridement Note Wound debrided: Left anterior lower extremity Laterality: Left Wound Grade/Stage: Russell stage I Type of Debridement: Excisional debridement Anesthesia Used: 5% Lidocaine Gel Depth: Down to and including healthy tissue and in the subcutaneous layer Percentage of wound debrided: 100 Instrument Used: 3mm curette Tissue Removed: Fibrous, devitalized subcutaneous, biofilm, slough Severity: Fat Layer Exposed Amount of bleeding with debridement: Mild Bleeding Controlled with: Compression and gauze Patient tolerated procedure: Patient tolerated procedure well Post-Debridement Measurements and Additional Note: Post-Debridement Measurements/Treatment - Nurse 1 - General Ulcer Assessment Start: 02/26/22 10:35 Freq: Status: Active Protocol: ALEX Activity Type Activity Date Activity User E-sign Co-sign Detail Recorded Client Recorded Date Recorded By Document 02/26/22 10:37 [id number] 02/26/22 10:42 TORSTEN 02/26/22 10:37 - Today's Visit Information Type of service Follow-up Visit (Physician/[facility]AL[facility] ) Arrival Mode Ambulatory,Cane Patient Identification Verified (Name & Yes ) Height and Weight Body Mass Index (BMI) 25.7 BMI Classification Overweight Vital Signs Temperature (97.8 F-99.1 F) 96.5 F L Temperature Source Temporal Pulse Rate (60-100) 86 Pulse Location Monitor Blood Pressure (90/60-120/80) 161/79 H Blood Pressure Mean (mm Hg) 106 Source Monitor Position Semi-Fowlers Blood Pressure Location Left Arm History Since Last Visit- (Skip if this is Patient's initial visit) Have you changed medications since your No last visit? Any new allergies or adverse reactions No Had a fall/change in ADL's that may No increase risk of falls Signs or symptoms of abuse and/or No neglect since last visit Have you been in the hospital since your No last visit? Has dressing in place as prescribed Yes Has compression in place as prescribed N/A Has offloadiing in place as prescribed N/A Experienced any changes in pain level or No management Left Footwear Regular Shoe Right Footwear Regular Shoe Pain Scale: 0-10 Numeric Is Patient Pain Free? Yes - Nurse 1 - General Ulcer Measurement Start: 02/26/22 10:35 Freq: Status: Active Protocol: Activity Type Activity Date Activity User E-sign Co-sign Detail Recorded Client Recorded Date Recorded By Document 02/26/22 10:37 TORSTEN [id number] 02/26/22 10:42 KR 02/26/22 10:37 Wound Center Nurse 1 #2 Left Gr Toe -Current Size (cm) - Length 0.3 -Current Size (cm) - Width 1.8 -Current Size (cm) - Depth 0.1 -Total Square Cm 0.54 -Exudate Amt None Present -Wound Margin Distinct, Outline Attached -Granulation Amt Medium (34-66%) -Granulation Quality Red -Necrosis Amt Small (1-33%) -Necrotic Tissue Type Adherent Slough -Texture (Vangie-wound Skin Appearance) Assessed, Scarring -Moisture (Vangie-wound Skin Appearance) No Abnormality, Assessed -Color (Vangie-wound Skin Appearance) No Abnormality, Assessed -Temperature (Vangie-wound Skin No Abnormality Appearance) (Pt Warm) -Tenderness on Palpation (Vangie-wound No Skin Appearance) -Ulcer Cleansing Rinsed/ Irrigated with Saline -Foul Odor after Cleansing No -Anesthetic Used 5% Lidocaine Gel BRAN - Nurse 2 - General Ulcer CM Notes Start: 02/26/22 10:35 Freq: Status: Active Protocol: Activity Type Activity Date Activity User E-sign Co-sign Detail Recorded Client Recorded Date Recorded By Document 02/26/22 12:38 PL [id number] 02/26/22 12:39 PL 02/26/22 12:38 Wound Center Nurse 2 #9 Left Lower Leg Medial -Time 10:52 -Correct Patient Yes -Correct Side, Site, Position Yes -Correct Procedure Yes -Procedure Performed Yes -Type of Procedure Debridement -Clinical Debridement Subcutaneous -Tissue Removed Subcutaneous -Post Debridement (cm) - Length 1.0 -Post Debridement (cm) - Width 1.1 -Post Debridement (cm) - Depth 0.1 -Total Square (Post) (cm) 1.10 -Area of Debridement (cm) - Length 1.0 -Area of Debridement (cm) - Width 1.1 -Total Square (Area) (cm) 1.10 -Tunneling No -Undermining/Tunneling No -Circular Undermining No -Wound/Ulcer Outcome Not Healed -Ulcer Cleansing Rinsed/ Irrigated with Saline -Foul Odor after Cleansing No -Bioengineered Tissue No -Bleeding Controlled with Pressure -Treatment Response Procedure Tolerated Well -Debridement - Subq, 1st 20sq cm No #2 Left Gr Toe -Time 10:52 -Correct Patient Yes -Correct Side, Site, Position Yes -Correct Procedure Yes -Procedure Performed Yes -Type of Procedure Debridement -Clinical Debridement Subcutaneous -Tissue Removed Subcutaneous -Post Debridement (cm) - Length 0.3 -Post Debridement (cm) - Width 1.8 -Post Debridement (cm) - Depth 0.1 -Total Square (Post) (cm) 0.54 -Area of Debridement (cm) - Length 0.3 -Area of Debridement (cm) - Width 1.8 -Total Square (Area) (cm) 0.54 -Tunneling No -Undermining/Tunneling No -Circular Undermining No -Wound/Ulcer Outcome Not Healed -Ulcer Cleansing Rinsed/ Irrigated with Saline -Foul Odor after Cleansing No -Bioengineered Tissue No -Bleeding Controlled with Pressure -Treatment Response Procedure Tolerated Well -Debridement - Subq, 1st 20sq cm Yes Pain Scale: 0-10 Numeric Is Patient Pain Free? Yes - Nurse 3 - General Ulcer D/C NN Start: 02/26/22 10:35 Freq: Status: Active Protocol: Activity Type Activity Date Activity User E-sign Co-sign Detail Recorded Client Recorded Date Recorded By Document 02/26/22 11:12 TORSTEN [id number] 02/26/22 11:13 TORSTEN 02/26/22 11:12 Wound Care Nurse 3 #2 Left Gr Toe -Ulcer Cleansing Rinsed/ Irrigated with Saline -Primary Dressing Applied C Hydrogel ($), Promogran Chuyita Matter -Primary Dressing Covered/Secured with Dry Gauze, Secured with Tape -Promogran Chuyita Matter 1 Pain Scale: 0-10 Numeric Is Patient Pain Free? Yes - Visit Discharge Discharge Condition Stable Ambulatory Status Ambulatory,Cane Transportation Private Auto Additional Wound Wound debrided: Left medial hallux Laterality: Left Wound Grade/Stage: Russell stage I Type of Debridement: Excisional debridement Anesthesia Used: 5% Lidocaine Gel Depth: Down to and including healthy tissue and in the subcutaneous layer Percentage of wound debrided: 100 Instrument Used: - (313 blade) Tissue Removed: Fibrous, devitalized subcutaneous, biofilm, slough Severity: Fat Layer Exposed Amount of bleeding with debridement: Mild Bleeding Controlled with: Compression and gauze Patient tolerated procedure: Patient tolerated procedure well Assessment/Plan Assessment/Plan (1) Non-pressure chronic ulcer of left calf with fat layer exposed: CODE(S): L97.222 - Non-pressure chronic ulcer of left calf with fat layer exposed (2) Non-pressure 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: CODE(S): L97.522 - Non-pressure 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 (3) Varicose veins of left lower extremity with ulcer of calf: CODE(S): I83.022 - Varicose veins of left lower extremity with ulcer of calf (4) Chronic venous insufficiency: PLAN: Plan Patient seen and evaluated. I discussed her case today. New wound left lower extremity secondary to eschar being removed by article of clothing. Ulcerative site measures 1 cm x 1.1 cm x 0.1 cm. No localized signs of infection. Ulceration underwent sharp debridement as noted in the clinical panel above. Ulcerative site dressed with Chuyita moistened with hydrogel and dry sterile dressing. I will consider epi fix graft application at next visit of the site. 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 I debrided the left hallux medial IPJ hyperkeratotic tissue as stated in the clinical panel above. Ulceration site demonstrates no signs of infection.? Left hallux ulceration site is showing progression and decreasing in size overall with continued evidence of new skin formation across the wound bed, but still has some callus buildup about the site. This wound is nearing closure, but continued pressure reduction is essential.?She continues to offload the first metatarsophalangeal joint and hallux with an offloading pad to the plantar first metatarsal head and about the hallux. Hallux ulceration site was dressed with hydrogel offloading pad to the first metatarsophalangeal joint and about the wound site on the Hallux.? I discussed continued offloading of the hallux ulceration site with felt pads & surgical shoe. I again discussed possible surgical intervention again with her today to remove a portion of bone at the interphalangeal joint of her hallux for pressure reduction and ultimately healing of the ulcerative site.?She continues to state that she will think about this.? I answered all questions today regarding the surgical procedure and expected recovery time and management. Patient to continue to elevate lower extremities in addition to wearing her Tubigrip compression stockings bilateral to aid in edema control.?I discussed with her that she is to continue to elevate her feet at times of rest. Patient voices understanding of this. The following work up and care recommendations were made: Dressing: Hydrogel left hallux, DSD, cotton, Coban and an offloading pad to the first metatarsophalangeal joint and about the hallux Wash: Soap and water Tissue growth optimization: Chuyita Offload: Offloading dressing of the first metatarsophalangeal joint and left hallux Vascular: Vascular status intact with palpable pedal pulses. She had venous studies performed confirming reflux of the left great saphenous vein with no deep venous thrombosis bilaterally. Edema: Elevation of the left lower extremity and right lower extremity control to control edema.?Patient instructed to wear double Tubigrip stockings Infection: No localized signs of infection Pain: May take [id number] Tylenol, safe oral anti-inflammatory use discussed. Host factors: Chronic venous insufficiency ? I answered all the patient's questions.? To return to the wound healing center in 1 week or call sooner if the patient has any questions or concerns. Note: [employer] speech recognition placement director software was used to create portions of this document. Sound-alike and misspelled words, as well as other placement director errors may be contained in the documentation.
[2022-03-05 10:16] VITALS: BP 150/72; PULSE 69; RESP 18; TEMP 36.5; BMI 25.7
--- NOTE | 2022-03-05 11:47 | RAD_ITS ---
STUDY: X-RAY LEFT FOOT, GREAT TOE REASON FOR EXAM: Female, 86 years old. WOUND TECHNIQUE: 3 view(s) of the toe were obtained. COMPARISON: None. FINDINGS: Normal visualized metatarsus. There is arthrosis of the metatarsophalangeal (M.T.P.) joint. Normal interphalangeal joints. Normal phalanges and interphalangeal joints. Soft tissue swelling. RAD/Toe(s) Min 2 Views IMPRESSION: Soft tissue swelling. Electronically Signed: Juan Diego Olsen MD at 12:30 EDT ,
--- NOTE | 2022-03-05 11:50 | RAD_ITS ---
STUDY: X-RAY - LEFT FOOT CLINICAL: Female, 86 years old. WOUND TECHNIQUE: 3 view(s) of the foot. COMPARISON: None. FINDINGS: There is a plantar calcaneal spur. Normal visualized subtalar, talonavicular, calcaneocuboid, tarsal and tarsometatarsal articulations. Normal metatarsi. There is degenerative arthrosis of the metatarsophalangeal joint of the hallux . Normal tibial and fibular sesamoid bones. Normal interphalangeal joint of the great toe. Normal phalanges of the great toe. Normal second through fifth metatarsophalangeal joints. Normal interphalangeal joints and phalanges of the lesser toes. Soft tissue swelling overlying the great toe. RAD/Foot min 3 Views IMPRESSION: Soft tissue swelling overlying the great toe. Electronically Signed: Juan Diego Olsen MD at 12:29 EDT ,
--- NOTE | 2022-03-05 11:59 | PCM.WC.PN ---
History of Present Illness Date of Service: 03/05/22 Chief Complaint: Bilateral knee wound History of Wound: Ms. Castro is an 86-year-old who is currently being seen for below knee ulcers however I was asked to see due to nonhealing bilateral knee wound. Said to have been sustained about 2 weeks ago when she fell on her knees. Initially had apply Chuyita to the area however, worsening was noted this week. She states that there has been a lot of rubbing underneath her clothing and so dressing has not stayed on adequately. She feels well. Denies chills, fever or feeling of unwell. 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 She has been applying offloading padding subfirst metatarsophalangeal joint and about the hallux. Patient denies any constitutional symptoms. Patient has no further complaints. Objective Data Objective Data Vital Signs: Vital Signs Temp Pulse Resp BP 97.7 F L 69 18 150/72 H 03/05/22 10:16 03/05/22 10:16 03/05/22 10:16 03/05/22 10:16 Weight: 70.307 kg Body Mass Index (BMI) 25.7 Physical Exam Const alert, oriented x3 and no apparent distress General Appearance: cooperative and comfortable HEENT normocephalic Eyes General Eye: normal appearance of both eyes Neck General: normal visual inspection Lymph Lymphatic: no lymphadenopathy noted and no lymphedema noted Resp normal respiratory effort Cardio regular rate and regular rhythm Extremity normal capillary refill, no joint enlargement, no calf tenderness and no pedal edema Extremity Narrative: Right Lower Extremity: foot and digits Positive for ROM (Decreased range of motion at the first metatarsophalangeal joint secondary to end-stage hallux limitus/rigidus) Left Lower Extremity: foot and digits Positive for ROM (Decreased range of motion at the first metatarsophalangeal joint secondary to end-stage hallux limitus/rigidus) Skin no rashes or lesions noted, skin turgor normal and no jaundice General Skin Exam: venous stasis and dermatitis Wound Narrative: Left lower extremity: Skin intact with brawny discoloration and hemosiderin deposition secondary to venous insufficiency/stasis.? There is a new ulceration left anterior medial lower extremity measuring 1 cm x 1.1 cm x 0.1 cm. No signs of infection. Left hallux sub-IPJ ulceration demonstrates healthy granular base with surrounding hyperkeratotic tissue. No signs of infection. Right lower extremity lateral ankle ulceration remains healed.? No localized signs of infection Neuro oriented x3 and moves all extremities Debridement Note Debridement Note Wound debrided: Left lower extremity Laterality: Left Wound Grade/Stage: Russell stage I Type of Debridement: Excisional debridement Anesthesia Used: 5% Lidocaine Gel Depth: Down to and including healthy tissue and in the subcutaneous layer Percentage of wound debrided: 100 Instrument Used: 3mm curette Tissue Removed: Fibrous, devitalized subcutaneous, biofilm, slough Severity: Fat Layer Exposed Amount of bleeding with debridement: Mild Bleeding Controlled with: Compression and gauze Patient tolerated procedure: Patient tolerated procedure well Post-Debridement Measurements and Additional Note: Post-Debridement Measurements/Treatment - Nurse 1 - General Ulcer Assessment Start: 02/26/22 10:35 Freq: Status: Active Protocol: ALEX Activity Type Activity Date Activity User E-sign Co-sign Detail Recorded Client Recorded Date Recorded By Document 02/26/22 10:37 KR [id number] 02/26/22 10:42 KR Document 03/05/22 10:16 JAVIER [id number] 03/05/22 10:23 JAVIER 02/26/22 03/05/22 10:37 10:16 - Today's Visit Information Type of service Follow-up Visit Follow-up Visit (Physician/DIGITAL MEDIA MANAGER (Physician/DIGITAL MEDIA MANAGER ) ) Arrival Mode Ambulatory,Cane Ambulatory, Walker Patient Identification Verified (Name & Yes Yes ) Patient Requires Transmission-Based No Precautions Height and Weight Body Mass Index (BMI) 25.7 25.7 BMI Classification Overweight Overweight Vital Signs Temperature (97.8 F-99.1 F) 96.5 F L 97.7 F L Temperature Source Temporal Temporal Pulse Rate (60-100) 86 69 Pulse Location Monitor Monitor Respiratory Rate (12-18) 18 Respiratory rate source Observation Blood Pressure (90/60-120/80) 161/79 H 150/72 H Blood Pressure Mean (mm Hg) 106 98 Source Monitor Monitor Position Semi-Fowlers Sitting Blood Pressure Location Left Arm History Since Last Visit- (Skip if this is Patient's initial visit) Have you changed medications since your No No last visit? Any new allergies or adverse reactions No No Had a fall/change in ADL's that may No No increase risk of falls Signs or symptoms of abuse and/or No No neglect since last visit Have you been in the hospital since your No No last visit? Has dressing in place as prescribed Yes Yes Has compression in place as prescribed N/A N/A Has offloadiing in place as prescribed N/A Yes Experienced any changes in pain level or No No management Left Footwear Regular Shoe Surgical Shoe with pressure relief insole Right Footwear Regular Shoe Regular Shoe Pain Scale: 0-10 Numeric Is Patient Pain Free? Yes Yes WC - Nurse 1 - General Ulcer Measurement Start: 02/26/22 10:35 Freq: Status: Active Protocol: Activity Type Activity Date Activity User E-sign Co-sign Detail Recorded Client Recorded Date Recorded By Document 02/26/22 10:37 TORSTEN [id number] 02/26/22 10:42 KR Document 03/05/22 10:16 [id number] 03/05/22 10:23 02/26/22 03/05/22 10:37 10:16 Wound Center Nurse 1 #9 Left Lower Leg Medial -Combined with other wound No -Current Size (cm) - Length 1.0 -Current Size (cm) - Width 0.9 -Current Size (cm) - Depth 0.3 -Total Square Cm 0.90 -Photo Taken Yes -Epithelialization None Present -Tunneling No -Undermining/Tunneling No -Circular Undermining No -Exudate Amt Medium -Exudate Type Serosanguineous -Wound Margin Flat & Intact -Granulation Amt Medium (34-66%) -Granulation Quality Red -Slough/Fibrin Yes -Necrosis Amt Small (1-33%) -Necrotic Tissue Type Adherent Slough -Structure Exposed N/A -Texture (Vangie-wound Skin Appearance) Assessed, Localized Edema -Moisture (Vangie-wound Skin Appearance) Assessed,Dry/ Scaly -Color (Vangie-wound Skin Appearance) Assessed -Temperature (Vangie-wound Skin No Abnormality Appearance) (Pt Warm) -Tenderness on Palpation (Vangie-wound No Skin Appearance) -Ulcer Cleansing Rinsed/ Irrigated with Saline -Foul Odor after Cleansing No -Anesthetic Used 5% Lidocaine Gel #2 Left Gr Toe -Combined with other wound No -Current Size (cm) - Length 0.3 0.2 -Current Size (cm) - Width 1.8 0.3 -Current Size (cm) - Depth 0.1 0.2 -Total Square Cm 0.54 0.06 -Photo Taken Yes -Epithelialization None Present -Tunneling No -Undermining/Tunneling No -Circular Undermining No -Exudate Amt None Present Small -Exudate Type Serosanguineous -Wound Margin Distinct, Indistinct, Non Outline -Visible Attached -Granulation Amt Medium (34-66%) Small (1-33%) -Granulation Quality Red Red -Slough/Fibrin Yes -Necrosis Amt Small (1-33%) Large (67-100%) -Necrotic Tissue Type Adherent Slough Adherent Slough -Structure Exposed N/A -Texture (Vangie-wound Skin Appearance) Assessed, Assessed,Callus Scarring -Moisture (Vangie-wound Skin Appearance) No Abnormality, Assessed,Dry/ Assessed Scaly -Color (Vangie-wound Skin Appearance) No Abnormality, Assessed Assessed -Temperature (Vangie-wound Skin No Abnormality No Abnormality Appearance) (Pt Warm) (Pt Warm) -Tenderness on Palpation (Vangie-wound No No Skin Appearance) -Ulcer Cleansing Rinsed/ Rinsed/ Irrigated with Irrigated with Saline Saline -Foul Odor after Cleansing No No -Anesthetic Used 5% Lidocaine 5% Lidocaine Gel Gel Lower Limb Edema Present NA WC - Nurse 2 - General Ulcer CM Notes Start: 02/26/22 10:35 Freq: Status: Active Protocol: Activity Type Activity Date Activity User E-sign Co-sign Detail Recorded Client Recorded Date Recorded By Document 02/26/22 12:38 PL [id number] 02/26/22 12:39 PL Document 03/05/22 11:45 PL [id number] 03/05/22 11:47 PL 02/26/22 03/05/22 12:38 11:45 Wound Center Nurse 2 #9 Left Lower Leg Medial -Time 10:52 10:55 -Correct Patient Yes Yes -Correct Side, Site, Position Yes Yes -Correct Procedure Yes Yes -Procedure Performed Yes Yes -Type of Procedure Debridement Debridement -Clinical Debridement Subcutaneous Subcutaneous -Tissue Removed Subcutaneous Subcutaneous -Post Debridement (cm) - Length 1.0 1.0 -Post Debridement (cm) - Width 1.1 0.9 -Post Debridement (cm) - Depth 0.1 0.3 -Total Square (Post) (cm) 1.10 0.90 -Area of Debridement (cm) - Length 1.0 1.0 -Area of Debridement (cm) - Width 1.1 0.9 -Total Square (Area) (cm) 1.10 0.90 -Tunneling No No -Undermining/Tunneling No No -Circular Undermining No No -Wound/Ulcer Outcome Not Healed Not Healed -Ulcer Cleansing Rinsed/ Rinsed/ Irrigated with Irrigated with Saline Saline -Foul Odor after Cleansing No No -Bioengineered Tissue No Yes -Type of Bioengineered Tissue Epifix -Expiration Date 07/30/26 -Product Lot Number [id number] -Percent Used 100 -Bleeding Controlled with Pressure Pressure -Treatment Response Procedure Procedure Tolerated Well Tolerated Well -Debridement - Subq, 1st 20sq cm No No -Apply Skin Sub - 1st 25 sq cm - Legs 1 -Epifix (per sq cm) 4 #2 Left Gr Toe -Time 10:52 10:55 -Correct Patient Yes Yes -Correct Side, Site, Position Yes Yes -Correct Procedure Yes Yes -Procedure Performed Yes Yes -Type of Procedure Debridement Debridement -Clinical Debridement Subcutaneous Subcutaneous -Tissue Removed Subcutaneous Subcutaneous -Post Debridement (cm) - Length 0.3 0.2 -Post Debridement (cm) - Width 1.8 0.3 -Post Debridement (cm) - Depth 0.1 0.2 -Total Square (Post) (cm) 0.54 0.06 -Area of Debridement (cm) - Length 0.3 0.2 -Area of Debridement (cm) - Width 1.8 0.3 -Total Square (Area) (cm) 0.54 0.06 -Tunneling No No -Undermining/Tunneling No No -Circular Undermining No No -Wound/Ulcer Outcome Not Healed Not Healed -Ulcer Cleansing Rinsed/ Rinsed/ Irrigated with Irrigated with Saline Saline -Foul Odor after Cleansing No No -Bioengineered Tissue No No -Bleeding Controlled with Pressure Pressure -Treatment Response Procedure Procedure Tolerated Well Tolerated Well -Debridement - Subq, 1st 20sq cm Yes No Pain Scale: 0-10 Numeric Is Patient Pain Free? Yes Yes - Nurse 3 - General Ulcer D/C NN Start: 02/26/22 10:35 Freq: Status: Active Protocol: Activity Type Activity Date Activity User E-sign Co-sign Detail Recorded Client Recorded Date Recorded By Document 02/26/22 11:12 TORSTEN [id number] 02/26/22 11:13 TORSTEN Document 03/05/22 11:13 JAVIER [id number] 03/05/22 11:14 JAVIER 02/26/22 03/05/22 11:12 11:13 Wound Care Nurse 3 #9 Left Lower Leg Medial -Ulcer Cleansing Rinsed/ Irrigated with Saline -Foul Odor after Cleansing No -Primary Dressing Covered/Secured with Dry Gauze & Roll Gauze, Secured with Tape #2 Left Gr Toe -Ulcer Cleansing Rinsed/ Rinsed/ Irrigated with Irrigated with Saline Saline -Foul Odor after Cleansing No -Primary Dressing Applied C Hydrogel ($), Promogran Chuyita Matter -Primary Dressing Covered/Secured with Dry Gauze, Dry Gauze & Secured with Roll Gauze, Tape Secured with Tape -Promogran Chuyita Matter 1 Right -Tubular Bandage Single Layer -Size of Tubigrip Used Size D -Size D ($) 1 Left -Tubular Bandage Single Layer -Size of Tubigrip Used Size D -Size D ($) 1 Pain Scale: 0-10 Numeric Is Patient Pain Free? Yes Yes WC - Visit Discharge Discharge Condition Stable Stable Ambulatory Status Ambulatory,Cane Ambulatory,Cane Transportation Private Auto Private Auto Medication Reconcilliation completed & Yes provided to patient/care provider Clinical Summary of Care Provided Yes Additional Wound Wound debrided: Left plantar medial hallux Laterality: Left Wound Grade/Stage: Russell stage I Type of Debridement: Selective debridement Anesthesia Used: 5% Lidocaine Gel Depth: Down to and including healthy tissue and in the subcutaneous layer Percentage of wound debrided: 100 Instrument Used: - (313 blade) Tissue Removed: Fibrous, devitalized subcutaneous, biofilm, slough Severity: Fat Layer Exposed Amount of bleeding with debridement: Mild Bleeding Controlled with: Compression and gauze Patient tolerated procedure: Patient tolerated procedure well Assessment/Plan Assessment/Plan (1) Non-pressure chronic ulcer of left calf with fat layer exposed: CODE(S): L97.222 - Non-pressure chronic ulcer of left calf with fat layer exposed (2) Non-pressure 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: CODE(S): L97.522 - Non-pressure 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 (3) Varicose veins of left lower extremity with ulcer of calf: CODE(S): I83.022 - Varicose veins of left lower extremity with ulcer of calf (4) Chronic venous insufficiency: PLAN: Plan Patient seen and evaluated. I discussed her case today. Left lower extremity ulceration secondary to eschar being removed by article of clothing. Ulcerative site measures 1 cm x 1.0 cm x 0.1 cm. No localized signs of infection. Ulceration underwent sharp debridement as noted in the clinical panel above. Epi fix graft #1 applied to ulcerative site and dressed with Adaptic touch and Steri-Strips. She was instructed to change outer dressings as needed and to not get the site wet. 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 I debrided the left hallux medial IPJ hyperkeratotic tissue as stated in the clinical panel above. Ulceration site demonstrates no signs of infection.? Left hallux ulceration site is showing progression and decreasing in size overall with continued evidence of new skin formation across the wound bed, but still has some callus buildup about the site. This wound is nearing closure, but continued pressure reduction is essential.?She continues to offload the first metatarsophalangeal joint and hallux with an offloading pad to the plantar first metatarsal head and about the hallux. Hallux ulceration site was dressed with hydrogel offloading pad to the first metatarsophalangeal joint and about the wound site on the Hallux.? I discussed continued offloading of the hallux ulceration site with felt pads & surgical shoe. She is aware of our discussion pertaining to possible surgical intervention to remove a portion of bone at the interphalangeal joint of her hallux for pressure reduction and ultimately healing of the ulcerative site.?She continues to state that she will think about this. I ordered an x-ray of the left foot to further evaluate the hallux IPJ wound, which demonstrates marginal osteophyte formation medially of the IPJ consistent with moderate arthritic changes of the interphalangeal joint. This marginal osteophyte is creating additional pressure on the hallux wound. I will discuss these radiographs at next visit with her. Patient to continue to elevate lower extremities in addition to wearing her Tubigrip compression stockings bilateral to aid in edema control.?I discussed with her that she is to continue to elevate her feet at times of rest. Patient voices understanding of this. The following work up and care recommendations were made: Dressing: Hydrogel left hallux, DSD, cotton, Coban and an offloading pad to the first metatarsophalangeal joint and about the hallux Wash: Soap and water Tissue growth optimization: Chuyita Offload: Offloading dressing of the first metatarsophalangeal joint and left hallux Vascular: Vascular status intact with palpable pedal pulses. She had venous studies performed confirming reflux of the left great saphenous vein with no deep venous thrombosis bilaterally. Edema: Elevation of the left lower extremity and right lower extremity control to control edema.?Patient instructed to wear double Tubigrip stockings Infection: No localized signs of infection Pain: May take [id number] Tylenol, safe oral anti-inflammatory use discussed. Host factors: Chronic venous insufficiency ? I answered all the patient's questions.? To return to the wound healing center in 1 week or call sooner if the patient has any questions or concerns. Note: [facility] speech recognition singing messenger software was used to create portions of this document. Sound-alike and misspelled words, as well as other singing messenger errors may be contained in the documentation.
[2022-03-12 09:40] VITALS: BP 159/62; PULSE 74; TEMP 35.7; BMI 25.7
--- NOTE | 2022-03-12 14:45 | PCM.WC.PN ---
History of Present Illness Date of Service: 03/12/22 Chief Complaint: Bilateral knee wound History of Wound: Ms. Castro is an 86-year-old who is currently being seen for below knee ulcers however I was asked to see due to nonhealing bilateral knee wound. Said to have been sustained about 2 weeks ago when she fell on her knees. Initially had apply Chuyita to the area however, worsening was noted this week. She states that there has been a lot of rubbing underneath her clothing and so dressing has not stayed on adequately. She feels well. Denies chills, fever or feeling of unwell. 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 She has been applying offloading padding subfirst metatarsophalangeal joint and about the hallux. She is changing the dressings to the left lower extremity as needed. Patient denies any constitutional symptoms. Patient has no further complaints. Objective Data Objective Data Vital Signs: Vital Signs Temp Pulse Resp BP 96.3 F L 74 18 159/62 H 03/12/22 09:40 03/12/22 09:40 03/05/22 10:16 03/12/22 09:40 Weight: 70.307 kg Body Mass Index (BMI) 25.7 Physical Exam Const alert, oriented x3 and no apparent distress General Appearance: cooperative and comfortable HEENT normocephalic Eyes General Eye: normal appearance of both eyes Neck General: normal visual inspection Lymph Lymphatic: no lymphadenopathy noted and no lymphedema noted Resp normal respiratory effort Cardio regular rate and regular rhythm Extremity normal capillary refill, no joint enlargement, no calf tenderness and no pedal edema Extremity Narrative: Right Lower Extremity: foot and digits Positive for ROM (Decreased range of motion at the first metatarsophalangeal joint secondary to end-stage hallux limitus/rigidus) Left Lower Extremity: foot and digits Positive for ROM (Decreased range of motion at the first metatarsophalangeal joint secondary to end-stage hallux limitus/rigidus) Skin no rashes or lesions noted, skin turgor normal and no jaundice General Skin Exam: venous stasis and dermatitis Wound Narrative: Left lower extremity: Skin intact with brawny discoloration and hemosiderin deposition secondary to venous insufficiency/stasis.? There is a new ulceration left anterior medial lower extremity measuring 0.5 cm x 0.6 cm x 0.1 cm. No signs of infection. Left hallux sub-IPJ ulceration demonstrates healthy granular base with surrounding hyperkeratotic tissue. No signs of infection. Right lower extremity lateral ankle ulceration remains healed.? No localized signs of infection Neuro oriented x3 and moves all extremities Debridement Note Debridement Note Wound debrided: Left medial lower extremity Laterality: Left Wound Grade/Stage: Russell stage I Type of Debridement: Excisional debridement Anesthesia Used: 5% Lidocaine Gel Depth: Down to and including healthy tissue and in the subcutaneous layer Percentage of wound debrided: 100 Instrument Used: 3mm curette Tissue Removed: Fibrous, devitalized subcutaneous, biofilm, slough Severity: Fat Layer Exposed Amount of bleeding with debridement: Mild Bleeding Controlled with: Compression and gauze Patient tolerated procedure: Patient tolerated procedure well Post-Debridement Measurements and Additional Note: Post-Debridement Measurements/Treatment - Nurse 1 - General Ulcer Assessment Start: 02/26/22 10:35 Freq: Status: Active Protocol: ALEX Activity Type Activity Date Activity User E-sign Co-sign Detail Recorded Client Recorded Date Recorded By Document 02/26/22 10:37 KR [id number] 02/26/22 10:42 KR Document 03/05/22 10:16 [id number] 03/05/22 10:23 Document 03/12/22 09:40 AK [id number] 03/12/22 09:50 AK 02/26/22 03/05/22 03/12/22 10:37 10:16 09:40 - Today's Visit Information Type of service Follow-up Visit Follow-up Visit Follow-up Visit (Physician/PHLEBOTOMY MANAGER (Physician/PHLEBOTOMY MANAGER (Physician/PHLEBOTOMY MANAGER ) ) ) Arrival Mode Ambulatory,Cane Ambulatory, Ambulatory,Cane Walker Patient Identification Verified (Name & Yes Yes Yes ) Patient Requires Transmission-Based No No Precautions Safety Precautions NA Height and Weight Body Mass Index (BMI) 25.7 25.7 25.7 BMI Classification Overweight Overweight Overweight Vital Signs Temperature (97.8 F-99.1 F) 96.5 F L 97.7 F L 96.3 F L Temperature Source Temporal Temporal Temporal Pulse Rate (60-100) 86 69 74 Pulse Location Monitor Monitor Monitor Respiratory Rate (12-18) 18 Respiratory rate source Observation Blood Pressure (90/60-120/80) 161/79 H 150/72 H 159/62 H Blood Pressure Mean (mm Hg) 106 98 94 Source Monitor Monitor Monitor Position Semi-Fowlers Sitting Semi-Fowlers Blood Pressure Location Left Arm Right Arm History Since Last Visit- (Skip if this is Patient's initial visit) Have you changed medications since your No No No last visit? Any new allergies or adverse reactions No No No Had a fall/change in ADL's that may No No No increase risk of falls Signs or symptoms of abuse and/or No No No neglect since last visit Have you been in the hospital since your No No No last visit? Has dressing in place as prescribed Yes Yes Yes Has compression in place as prescribed N/A N/A Yes Has offloadiing in place as prescribed N/A Yes N/A Experienced any changes in pain level or No No No management Left Footwear Regular Shoe Surgical Shoe Regular Shoe with pressure relief insole Right Footwear Regular Shoe Regular Shoe Regular Shoe Pain Scale: 0-10 Numeric Is Patient Pain Free? Yes Yes Yes WC - Nurse 1 - General Ulcer Measurement Start: 02/26/22 10:35 Freq: Status: Active Protocol: Activity Type Activity Date Activity User E-sign Co-sign Detail Recorded Client Recorded Date Recorded By Document 02/26/22 10:37 KR [id number] 02/26/22 10:42 KR Document 03/05/22 10:16 JF [id number] 03/05/22 10:23 JF Document 03/12/22 09:40 AK [id number] 03/12/22 09:50 AK 02/26/22 03/05/22 03/12/22 10:37 10:16 09:40 Wound Center Nurse 1 #9 Left Lower Leg Medial -Combined with other wound No No -Current Size (cm) - Length 1.0 0.5 -Current Size (cm) - Width 0.9 0.6 -Current Size (cm) - Depth 0.3 0.1 -Total Square Cm 0.90 0.30 -Photo Taken Yes No -Epithelialization None Present -Tunneling No No -Undermining/Tunneling No No -Circular Undermining No No -Change in Wound Grade/Stage No -Exudate Amt Medium Small -Exudate Type Serosanguineous Serosanguineous -Wound Margin Flat & Intact Distinct, Outline Attached -Granulation Amt Medium (34-66%) Medium (34-66%) -Granulation Quality Red N/A,[place] -Slough/Fibrin Yes No -Necrosis Amt Small (1-33%) None Present (0 %) -Necrotic Tissue Type Adherent Slough -Structure Exposed N/A N/A -Texture (Vangie-wound Skin Appearance) Assessed, Assessed,Callus Localized Edema -Moisture (Vangie-wound Skin Appearance) Assessed,Dry/ No Abnormality, Scaly Assessed -Color (Vangie-wound Skin Appearance) Assessed No Abnormality, Assessed -Temperature (Vangie-wound Skin No Abnormality No Abnormality Appearance) (Pt Warm) (Pt Warm) -Tenderness on Palpation (Vangie-wound No No Skin Appearance) -Ulcer Cleansing Rinsed/ Rinsed/ Irrigated with Irrigated with Saline Saline -Foul Odor after Cleansing No No -Anesthetic Used 5% Lidocaine 5% Lidocaine Gel Gel #2 Left Gr Toe -Combined with other wound No -Current Size (cm) - Length 0.3 0.2 0.2 -Current Size (cm) - Width 1.8 0.3 0.2 -Current Size (cm) - Depth 0.1 0.2 0.2 -Total Square Cm 0.54 0.06 0.04 -Photo Taken Yes -Epithelialization None Present -Tunneling No -Undermining/Tunneling No -Circular Undermining No -Exudate Amt None Present Small Small -Exudate Type Serosanguineous Serosanguineous -Wound Margin Distinct, Indistinct, Non Distinct, Outline -Visible Outline Attached Attached -Granulation Amt Medium (34-66%) Small (1-33%) Small (1-33%) -Granulation Quality Red Red [place] -Slough/Fibrin Yes -Necrosis Amt Small (1-33%) Large (67-100%) None Present (0 %) -Necrotic Tissue Type Adherent Slough Adherent Slough -Structure Exposed N/A -Texture (Vangie-wound Skin Appearance) Assessed, Assessed,Callus Assessed, Scarring Scarring -Moisture (Vangie-wound Skin Appearance) No Abnormality, Assessed,Dry/ Assessed,Dry/ Assessed Scaly Scaly -Color (Vangie-wound Skin Appearance) No Abnormality, Assessed No Abnormality, Assessed Assessed -Temperature (Vangie-wound Skin No Abnormality No Abnormality No Abnormality Appearance) (Pt Warm) (Pt Warm) (Pt Warm) -Tenderness on Palpation (Vangie-wound No No No Skin Appearance) -Ulcer Cleansing Rinsed/ Rinsed/ Soap and Water Irrigated with Irrigated with Saline Saline -Foul Odor after Cleansing No No No -Anesthetic Used 5% Lidocaine 5% Lidocaine 5% Lidocaine Gel Gel Gel Lower Limb Edema Present NA WC - Nurse 2 - General Ulcer CM Notes Start: 02/26/22 10:35 Freq: Status: Active Protocol: Activity Type Activity Date Activity User E-sign Co-sign Detail Recorded Client Recorded Date Recorded By Document 02/26/22 12:38 PL [id number] 02/26/22 12:39 PL Document 03/05/22 11:45 PL [id number] 03/05/22 11:47 PL Document 03/12/22 12:44 PL [id number] 03/12/22 12:47 PL 02/26/22 03/05/22 03/12/22 12:38 11:45 12:44 Wound Center Nurse 2 #9 Left Lower Leg Medial -Time 10:52 10:55 10:54 -Correct Patient Yes Yes Yes -Correct Side, Site, Position Yes Yes Yes -Correct Procedure Yes Yes Yes -Procedure Performed Yes Yes Yes -Type of Procedure Debridement Debridement Debridement -Clinical Debridement Subcutaneous Subcutaneous Subcutaneous -Tissue Removed Subcutaneous Subcutaneous Subcutaneous -Post Debridement (cm) - Length 1.0 1.0 0.5 -Post Debridement (cm) - Width 1.1 0.9 0.6 -Post Debridement (cm) - Depth 0.1 0.3 0.1 -Total Square (Post) (cm) 1.10 0.90 0.30 -Area of Debridement (cm) - Length 1.0 1.0 0.5 -Area of Debridement (cm) - Width 1.1 0.9 0.6 -Total Square (Area) (cm) 1.10 0.90 0.30 -Tunneling No No No -Undermining/Tunneling No No No -Circular Undermining No No No -Wound/Ulcer Outcome Not Healed Not Healed Not Healed -Ulcer Cleansing Rinsed/ Rinsed/ Rinsed/ Irrigated with Irrigated with Irrigated with Saline Saline Saline -Foul Odor after Cleansing No No No -Bioengineered Tissue No Yes Yes -Type of Bioengineered Tissue Epifix Epifix -Expiration Date 07/30/26 12/24/26 -Product Lot Number [id number] -Percent Used 100 100 -Bleeding Controlled with Pressure Pressure Pressure -Treatment Response Procedure Procedure Procedure Tolerated Well Tolerated Well Tolerated Well -Debridement - Subq, 1st 20sq cm No No No -Apply Skin Sub - 1st 25 sq cm - Legs 1 1 -Epifix (per sq cm) 4 4 #2 Left Gr Toe -Time 10:52 10:55 10:54 -Correct Patient Yes Yes Yes -Correct Side, Site, Position Yes Yes Yes -Correct Procedure Yes Yes Yes -Procedure Performed Yes Yes Yes -Type of Procedure Debridement Debridement Debridement -Clinical Debridement Subcutaneous Subcutaneous Subcutaneous -Tissue Removed Subcutaneous Subcutaneous Subcutaneous -Post Debridement (cm) - Length 0.3 0.2 0.2 -Post Debridement (cm) - Width 1.8 0.3 0.2 -Post Debridement (cm) - Depth 0.1 0.2 0.2 -Total Square (Post) (cm) 0.54 0.06 0.04 -Area of Debridement (cm) - Length 0.3 0.2 0.2 -Area of Debridement (cm) - Width 1.8 0.3 0.2 -Total Square (Area) (cm) 0.54 0.06 0.04 -Tunneling No No No -Undermining/Tunneling No No No -Circular Undermining No No No -Wound/Ulcer Outcome Not Healed Not Healed Not Healed -Ulcer Cleansing Rinsed/ Rinsed/ Rinsed/ Irrigated with Irrigated with Irrigated with Saline Saline Saline -Foul Odor after Cleansing No No No -Bioengineered Tissue No No No -Bleeding Controlled with Pressure Pressure Pressure -Treatment Response Procedure Procedure Procedure Tolerated Well Tolerated Well Tolerated Well -Debridement - Subq, 1st 20sq cm Yes No No Pain Scale: 0-10 Numeric Is Patient Pain Free? Yes Yes Yes - Nurse 3 - General Ulcer D/C NN Start: 02/26/22 10:35 Freq: Status: Active Protocol: Activity Type Activity Date Activity User E-sign Co-sign Detail Recorded Client Recorded Date Recorded By Document 02/26/22 11:12 TORSTEN [id number] 08/04/22 11:13 KR Document 03/05/22 11:13 [id number] 03/05/22 11:14 JF Document 03/12/22 11:29 KR [id number] 03/12/22 11:30 KR 02/26/22 03/05/22 03/12/22 11:12 11:13 11:29 Wound Care Nurse 3 #9 Left Lower Leg Medial -Ulcer Cleansing Rinsed/ Rinsed/ Irrigated with Irrigated with Saline Saline -Foul Odor after Cleansing No -Primary Dressing Covered/Secured with Dry Gauze & Dry Gauze,Dry Roll Gauze, Gauze & Roll Secured with Gauze,Secured Tape with Tape #2 Left Gr Toe -Ulcer Cleansing Rinsed/ Rinsed/ Rinsed/ Irrigated with Irrigated with Irrigated with Saline Saline Saline -Foul Odor after Cleansing No -Primary Dressing Applied C Hydrogel ($), Promogran Chuyita Matter -Primary Dressing Covered/Secured with Dry Gauze, Dry Gauze & Dry Gauze, Secured with Roll Gauze, Secured with Tape Secured with Tape Tape -Promogran Chuyita Matter 1 Right -Tubular Bandage Single Layer -Size of Tubigrip Used Size D -Size D ($) 1 Left -Tubular Bandage Single Layer -Size of Tubigrip Used Size D -Size D ($) 1 Pain Scale: 0-10 Numeric Is Patient Pain Free? Yes Yes Yes WC - Visit Discharge Discharge Condition Stable Stable Stable Ambulatory Status Ambulatory,Cane Ambulatory,Cane Ambulatory,Cane Transportation Private Auto Private Auto Private Auto Medication Reconcilliation completed & Yes provided to patient/care provider Clinical Summary of Care Provided Yes Additional Wound Wound debrided: Left plantar hallux Laterality: Left Wound Grade/Stage: Russell stage I Type of Debridement: Excisional debridement Anesthesia Used: 5% Lidocaine Gel Depth: Down to and including healthy tissue and in the subcutaneous layer Percentage of wound debrided: 100 Instrument Used: - (313 blade) Tissue Removed: Fibrous, devitalized subcutaneous, biofilm, slough Severity: Fat Layer Exposed Amount of bleeding with debridement: Mild Bleeding Controlled with: Compression and gauze Patient tolerated procedure: Patient tolerated procedure well Assessment/Plan Assessment/Plan (1) Non-pressure chronic ulcer of left calf with fat layer exposed: CODE(S): L97.222 - Non-pressure chronic ulcer of left calf with fat layer exposed (2) Non-pressure 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: CODE(S): L97.522 - Non-pressure 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 (3) Varicose veins of left lower extremity with ulcer of calf: CODE(S): I83.022 - Varicose veins of left lower extremity with ulcer of calf (4) Chronic venous insufficiency: PLAN: Plan Patient seen and evaluated. I discussed her case today. Left lower extremity ulceration secondary to eschar being removed by article of clothing. Ulcerative site measures 0.5 cm x 0.6 cm x 0.1 cm. No localized signs of infection. Ulceration underwent sharp debridement as noted in the clinical panel above. Epi fix graft #2 applied to ulcerative site and dressed with Adaptic touch and Steri-Strips. She was instructed to change outer dressings as needed and to not get the site wet. This ulceration is responding well to the epi fix and decreasing in size versus previous visit. 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 I debrided the left hallux medial IPJ hyperkeratotic tissue as stated in the clinical panel above. Ulceration site demonstrates no signs of infection.? Left hallux ulceration site is showing progression and decreasing in size overall and granulating in well with continued evidence of new skin formation across the wound bed, but still has some callus buildup about the site. This wound is nearing closure, but continued pressure reduction is essential.?She continues to offload the first metatarsophalangeal joint and hallux with an offloading pad to the plantar first metatarsal head and about the hallux. Hallux ulceration site was dressed with hydrogel offloading pad to the first metatarsophalangeal joint and about the wound site on the Hallux.? She will continue offloading of the hallux ulceration site with felt pads & surgical shoe. She is aware of our discussion pertaining to possible surgical intervention to remove a portion of bone at the interphalangeal joint of her hallux for pressure reduction and ultimately healing of the ulcerative site.?She continues to state that she will think about this. Radiographs of the left foot demonstrates marginal osteophyte formation medially of the IPJ consistent with moderate arthritic changes of the interphalangeal joint. This marginal osteophyte is creating additional pressure on the hallux wound. I discussed radiographic findings with her today. She states she will also discuss with her interior plant caretaker. Patient to continue to elevate lower extremities in addition to wearing her Tubigrip compression stockings bilateral to aid in edema control.?I discussed with her that she is to continue to elevate her feet at times of rest. Patient voices understanding of this. The following work up and care recommendations were made: Dressing: Hydrogel left hallux, DSD, cotton, Coban and an offloading pad to the first metatarsophalangeal joint and about the hallux Wash: Soap and water Tissue growth optimization: Chuyita Offload: Offloading dressing of the first metatarsophalangeal joint and left hallux Vascular: Vascular status intact with palpable pedal pulses. She had venous studies performed confirming reflux of the left great saphenous vein with no deep venous thrombosis bilaterally. Edema: Elevation of the left lower extremity and right lower extremity control to control edema.?Patient instructed to wear double Tubigrip stockings Infection: No localized signs of infection Pain: May take [id number] Tylenol, safe oral anti-inflammatory use discussed. Host factors: Chronic venous insufficiency ? I answered all the patient's questions.? To return to the wound healing center in 1 week or call sooner if the patient has any questions or concerns. Note: [employer] speech recognition senior portfolio manager software was used to create portions of this document. Sound-alike and misspelled words, as well as other senior portfolio manager errors may be contained in the documentation.
[2022-03-19 10:29] VITALS: BP 128/75; PULSE 78; TEMP 36.4; BMI 25.7
--- NOTE | 2022-03-19 13:41 | PCM.WC.PN ---
History of Present Illness Date of Service: 03/19/22 Chief Complaint: Bilateral knee wound History of Wound: Ms. Castro is an 86-year-old who is currently being seen for below knee ulcers however I was asked to see due to nonhealing bilateral knee wound. Said to have been sustained about 2 weeks ago when she fell on her knees. Initially had apply Chuyita to the area however, worsening was noted this week. She states that there has been a lot of rubbing underneath her clothing and so dressing has not stayed on adequately. She feels well. Denies chills, fever or feeling of unwell. 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 She has been applying offloading padding subfirst metatarsophalangeal joint and about the hallux.? She is changing the dressings to the left lower extremity as needed. Patient denies any constitutional symptoms. Patient has no further complaints. Objective Data Objective Data Vital Signs: Vital Signs Temp Pulse Resp BP 97.5 F L 78 18 128/75 H 03/19/22 10:29 03/19/22 10:29 03/05/22 10:16 03/19/22 10:29 Weight: 70.307 kg Body Mass Index (BMI) 25.7 Physical Exam Const alert, oriented x3 and no apparent distress General Appearance: cooperative and comfortable HEENT normocephalic Eyes General Eye: normal appearance of both eyes Neck General: normal visual inspection Lymph Lymphatic: no lymphadenopathy noted and no lymphedema noted Resp normal respiratory effort Cardio regular rate and regular rhythm Extremity normal capillary refill, no joint enlargement, no calf tenderness and no pedal edema Extremity Narrative: Right Lower Extremity: foot and digits Positive for ROM (Decreased range of motion at the first metatarsophalangeal joint secondary to end-stage hallux limitus/rigidus) Left Lower Extremity: foot and digits Positive for ROM (Decreased range of motion at the first metatarsophalangeal joint secondary to end-stage hallux limitus/rigidus) Skin no rashes or lesions noted, skin turgor normal and no jaundice General Skin Exam: venous stasis and dermatitis Wound Narrative: Left lower extremity: Skin intact with brawny discoloration and hemosiderin deposition secondary to venous insufficiency/stasis.? There is a new ulceration left anterior medial lower extremity measuring 0.5 cm x 0.6 cm x 0.1 cm. No signs of infection. Left hallux sub-IPJ ulceration demonstrates healthy granular base with surrounding hyperkeratotic tissue. No signs of infection. Right lower extremity lateral ankle ulceration remains healed.? No localized signs of infection Neuro oriented x3 and moves all extremities Debridement Note Debridement Note Wound debrided: Left anterior lower extremity Laterality: Left Wound Grade/Stage: Russell stage I Type of Debridement: Excisional debridement Anesthesia Used: 5% Lidocaine Gel Depth: Down to and including healthy tissue and in the subcutaneous layer Percentage of wound debrided: 100 Instrument Used: 3mm curette Tissue Removed: Fibrous, devitalized subcutaneous, biofilm, slough Severity: Fat Layer Exposed Amount of bleeding with debridement: Mild Bleeding Controlled with: Compression and gauze Patient tolerated procedure: Patient tolerated procedure well Post-Debridement Measurements and Additional Note: Post-Debridement Measurements/Treatment - Nurse 1 - General Ulcer Assessment Start: 02/26/22 10:35 Freq: Status: Active Protocol: ALEX Activity Type Activity Date Activity User E-sign Co-sign Detail Recorded Client Recorded Date Recorded By Document 02/26/22 10:37 TORSTEN [id number] 02/26/22 10:42 KR Document 03/05/22 10:16 [id number] 03/05/22 10:23 JF Document 03/12/22 09:40 AK [id number] 03/12/22 09:50 AK Document 03/19/22 10:29 TORSTEN [id number] 03/19/22 10:39 KR 02/26/22 03/05/22 03/12/22 10:37 10:16 09:40 - Today's Visit Information Type of service Follow-up Visit Follow-up Visit Follow-up Visit (Physician/MECHANIC SOUND TECHNICIAN (Physician/MECHANIC SOUND TECHNICIAN (Physician/MECHANIC SOUND TECHNICIAN ) ) ) Arrival Mode Ambulatory,Cane Ambulatory, Ambulatory,Cane Walker Patient Identification Verified (Name & Yes Yes Yes ) Patient Requires Transmission-Based No No Precautions Safety Precautions NA Height and Weight Body Mass Index (BMI) 25.7 25.7 25.7 BMI Classification Overweight Overweight Overweight Vital Signs Temperature (97.8 F-99.1 F) 96.5 F L 97.7 F L 96.3 F L Temperature Source Temporal Temporal Temporal Pulse Rate (60-100) 86 69 74 Pulse Location Monitor Monitor Monitor Respiratory Rate (12-18) 18 Respiratory rate source Observation Blood Pressure (90/60-120/80) 161/79 H 150/72 H 159/62 H Blood Pressure Mean (mm Hg) 106 98 94 Source Monitor Monitor Monitor Position Semi-Fowlers Sitting Semi-Fowlers Blood Pressure Location Left Arm Right Arm History Since Last Visit- (Skip if this is Patient's initial visit) Have you changed medications since your No No No last visit? Any new allergies or adverse reactions No No No Had a fall/change in ADL's that may No No No increase risk of falls Signs or symptoms of abuse and/or No No No neglect since last visit Have you been in the hospital since your No No No last visit? Has dressing in place as prescribed Yes Yes Yes Has compression in place as prescribed N/A N/A Yes Has offloadiing in place as prescribed N/A Yes N/A Experienced any changes in pain level or No No No management Left Footwear Regular Shoe Surgical Shoe Regular Shoe with pressure relief insole Right Footwear Regular Shoe Regular Shoe Regular Shoe Pain Scale: 0-10 Numeric Is Patient Pain Free? Yes Yes Yes 03/19/22 10:29 WC - Today's Visit Information Type of service Follow-up Visit (Physician/MECHANIC SOUND TECHNICIAN ) Arrival Mode Ambulatory,Cane Patient Identification Verified (Name & Yes ) Patient Requires Transmission-Based Precautions Safety Precautions Height and Weight Body Mass Index (BMI) 25.7 BMI Classification Overweight Vital Signs Temperature (97.8 F-99.1 F) 97.5 F L Temperature Source Temporal Pulse Rate (60-100) 78 Pulse Location Monitor Respiratory Rate (12-18) Respiratory rate source Blood Pressure (90/60-120/80) 128/75 H Blood Pressure Mean (mm Hg) 92 Source Monitor Position Semi-Fowlers Blood Pressure Location Left Arm History Since Last Visit- (Skip if this is Patient's initial visit) Have you changed medications since your No last visit? Any new allergies or adverse reactions No Had a fall/change in ADL's that may No increase risk of falls Signs or symptoms of abuse and/or No neglect since last visit Have you been in the hospital since your No last visit? Has dressing in place as prescribed Yes Has compression in place as prescribed N/A Has offloadiing in place as prescribed N/A Experienced any changes in pain level or No management Left Footwear Regular Shoe Right Footwear Regular Shoe Pain Scale: 0-10 Numeric Is Patient Pain Free? Yes WC - Nurse 1 - General Ulcer Measurement Start: 02/26/22 10:35 Freq: Status: Active Protocol: Activity Type Activity Date Activity User E-sign Co-sign Detail Recorded Client Recorded Date Recorded By Document 02/26/22 10:37 KR [id number] 02/26/22 10:42 KR Document 03/05/22 10:16 JF [id number] 03/05/22 10:23 JF Document 03/12/22 09:40 AK [id number] 03/12/22 09:50 AK Document 03/19/22 10:29 KR [id number] 03/19/22 10:39 KR 02/26/22 03/05/22 03/12/22 10:37 10:16 09:40 Wound Center Nurse 1 #9 Left Lower Leg Medial -Combined with other wound No No -Current Size (cm) - Length 1.0 0.5 -Current Size (cm) - Width 0.9 0.6 -Current Size (cm) - Depth 0.3 0.1 -Total Square Cm 0.90 0.30 -Photo Taken Yes No -Epithelialization None Present -Tunneling No No -Undermining/Tunneling No No -Circular Undermining No No -Change in Wound Grade/Stage No -Exudate Amt Medium Small -Exudate Type Serosanguineous Serosanguineous -Wound Margin Flat & Intact Distinct, Outline Attached -Granulation Amt Medium (34-66%) Medium (34-66%) -Granulation Quality Red N/A,[place] -Slough/Fibrin Yes No -Necrosis Amt Small (1-33%) None Present (0 %) -Necrotic Tissue Type Adherent Slough -Structure Exposed N/A N/A -Texture (Vangie-wound Skin Appearance) Assessed, Assessed,Callus Localized Edema -Moisture (Vangie-wound Skin Appearance) Assessed,Dry/ No Abnormality, Scaly Assessed -Color (Vangie-wound Skin Appearance) Assessed No Abnormality, Assessed -Temperature (Vangie-wound Skin No Abnormality No Abnormality Appearance) (Pt Warm) (Pt Warm) -Tenderness on Palpation (Vangie-wound No No Skin Appearance) -Ulcer Cleansing Rinsed/ Rinsed/ Irrigated with Irrigated with Saline Saline -Foul Odor after Cleansing No No -Anesthetic Used 5% Lidocaine 5% Lidocaine Gel Gel #2 Left Gr Toe -Combined with other wound No -Current Size (cm) - Length 0.3 0.2 0.2 -Current Size (cm) - Width 1.8 0.3 0.2 -Current Size (cm) - Depth 0.1 0.2 0.2 -Total Square Cm 0.54 0.06 0.04 -Photo Taken Yes -Epithelialization None Present -Tunneling No -Undermining/Tunneling No -Circular Undermining No -Exudate Amt None Present Small Small -Exudate Type Serosanguineous Serosanguineous -Wound Margin Distinct, Indistinct, Non Distinct, Outline -Visible Outline Attached Attached -Granulation Amt Medium (34-66%) Small (1-33%) Small (1-33%) -Granulation Quality Red Red [place] -Slough/Fibrin Yes -Necrosis Amt Small (1-33%) Large (67-100%) None Present (0 %) -Necrotic Tissue Type Adherent Slough Adherent Slough -Structure Exposed N/A -Texture (Vangie-wound Skin Appearance) Assessed, Assessed,Callus Assessed, Scarring Scarring -Moisture (Vangie-wound Skin Appearance) No Abnormality, Assessed,Dry/ Assessed,Dry/ Assessed Scaly Scaly -Color (Vangie-wound Skin Appearance) No Abnormality, Assessed No Abnormality, Assessed Assessed -Temperature (Vangie-wound Skin No Abnormality No Abnormality No Abnormality Appearance) (Pt Warm) (Pt Warm) (Pt Warm) -Tenderness on Palpation (Vangie-wound No No No Skin Appearance) -Ulcer Cleansing Rinsed/ Rinsed/ Soap and Water Irrigated with Irrigated with Saline Saline -Foul Odor after Cleansing No No No -Anesthetic Used 5% Lidocaine 5% Lidocaine 5% Lidocaine Gel Gel Gel Lower Limb Edema Present NA 03/19/22 10:29 Wound Center Nurse 1 #9 Left Lower Leg Medial -Combined with other wound -Current Size (cm) - Length 0.7 -Current Size (cm) - Width 0.8 -Current Size (cm) - Depth 0.2 -Total Square Cm 0.56 -Photo Taken -Epithelialization -Tunneling -Undermining/Tunneling -Circular Undermining -Change in Wound Grade/Stage -Exudate Amt Medium -Exudate Type Serosanguineous -Wound Margin Distinct, Outline Attached -Granulation Amt -Granulation Quality -Slough/Fibrin -Necrosis Amt -Necrotic Tissue Type -Structure Exposed -Texture (Vangie-wound Skin Appearance) Assessed, Scarring -Moisture (Vangie-wound Skin Appearance) No Abnormality, Assessed -Color (Vangie-wound Skin Appearance) No Abnormality, Assessed -Temperature (Vangie-wound Skin No Abnormality Appearance) (Pt Warm) -Tenderness on Palpation (Vangie-wound No Skin Appearance) -Ulcer Cleansing Soap and Water -Foul Odor after Cleansing No -Anesthetic Used 5% Lidocaine Gel #2 Left Gr Toe -Combined with other wound -Current Size (cm) - Length 0.1 -Current Size (cm) - Width 0.1 -Current Size (cm) - Depth 0.1 -Total Square Cm 0.01 -Photo Taken -Epithelialization -Tunneling -Undermining/Tunneling -Circular Undermining -Exudate Amt Medium -Exudate Type Serosanguineous -Wound Margin Distinct, Outline Attached -Granulation Amt Medium (34-66%) -Granulation Quality [place] -Slough/Fibrin -Necrosis Amt None Present (0 %) -Necrotic Tissue Type -Structure Exposed -Texture (Vangie-wound Skin Appearance) Assessed, Scarring -Moisture (Vangie-wound Skin Appearance) No Abnormality, Assessed -Color (Vangie-wound Skin Appearance) No Abnormality, Assessed -Temperature (Vangie-wound Skin No Abnormality Appearance) (Pt Warm) -Tenderness on Palpation (Vangie-wound No Skin Appearance) -Ulcer Cleansing Soap and Water -Foul Odor after Cleansing No -Anesthetic Used 5% Lidocaine Gel Lower Limb Edema Present WC - Nurse 2 - General Ulcer CM Notes Start: 02/26/22 10:35 Freq: Status: Active Protocol: Activity Type Activity Date Activity User E-sign Co-sign Detail Recorded Client Recorded Date Recorded By Document 02/26/22 12:38 PL [id number] 02/26/22 12:39 PL Document 03/05/22 11:45 PL [id number] 03/05/22 11:47 PL Document 03/12/22 12:44 PL [id number] 03/12/22 12:47 PL Document 03/19/22 13:01 PL [id number] 03/19/22 13:05 PL 02/26/22 03/05/22 03/12/22 12:38 11:45 12:44 Wound Center Nurse 2 #9 Left Lower Leg Medial -Time 10:52 10:55 10:54 -Correct Patient Yes Yes Yes -Correct Side, Site, Position Yes Yes Yes -Correct Procedure Yes Yes Yes -Procedure Performed Yes Yes Yes -Type of Procedure Debridement Debridement Debridement -Clinical Debridement Subcutaneous Subcutaneous Subcutaneous -Tissue Removed Subcutaneous Subcutaneous Subcutaneous -Post Debridement (cm) - Length 1.0 1.0 0.5 -Post Debridement (cm) - Width 1.1 0.9 0.6 -Post Debridement (cm) - Depth 0.1 0.3 0.1 -Total Square (Post) (cm) 1.10 0.90 0.30 -Area of Debridement (cm) - Length 1.0 1.0 0.5 -Area of Debridement (cm) - Width 1.1 0.9 0.6 -Total Square (Area) (cm) 1.10 0.90 0.30 -Tunneling No No No -Undermining/Tunneling No No No -Circular Undermining No No No -Wound/Ulcer Outcome Not Healed Not Healed Not Healed -Ulcer Cleansing Rinsed/ Rinsed/ Rinsed/ Irrigated with Irrigated with Irrigated with Saline Saline Saline -Foul Odor after Cleansing No No No -Bioengineered Tissue No Yes Yes -Type of Bioengineered Tissue Epifix Epifix -Expiration Date 07/30/26 12/24/26 -Product Lot Number [id number] -Percent Used 100 100 -Lot number of Saline Used -Bleeding Controlled with Pressure Pressure Pressure -Treatment Response Procedure Procedure Procedure Tolerated Well Tolerated Well Tolerated Well -Debridement - Subq, 1st 20sq cm No No No -Apply Skin Sub - 1st 25 sq cm - Legs 1 1 -Epifix (per sq cm) 4 4 #2 Left Gr Toe -Time 10:52 10:55 10:54 -Correct Patient Yes Yes Yes -Correct Side, Site, Position Yes Yes Yes -Correct Procedure Yes Yes Yes -Procedure Performed Yes Yes Yes -Type of Procedure Debridement Debridement Debridement -Clinical Debridement Subcutaneous Subcutaneous Subcutaneous -Tissue Removed Subcutaneous Subcutaneous Subcutaneous -Post Debridement (cm) - Length 0.3 0.2 0.2 -Post Debridement (cm) - Width 1.8 0.3 0.2 -Post Debridement (cm) - Depth 0.1 0.2 0.2 -Total Square (Post) (cm) 0.54 0.06 0.04 -Area of Debridement (cm) - Length 0.3 0.2 0.2 -Area of Debridement (cm) - Width 1.8 0.3 0.2 -Total Square (Area) (cm) 0.54 0.06 0.04 -Tunneling No No No -Undermining/Tunneling No No No -Circular Undermining No No No -Wound/Ulcer Outcome Not Healed Not Healed Not Healed -Ulcer Cleansing Rinsed/ Rinsed/ Rinsed/ Irrigated with Irrigated with Irrigated with Saline Saline Saline -Foul Odor after Cleansing No No No -Bioengineered Tissue No No No -Bleeding Controlled with Pressure Pressure Pressure -Treatment Response Procedure Procedure Procedure Tolerated Well Tolerated Well Tolerated Well -Debridement - Subq, 1st 20sq cm Yes No No Pain Scale: 0-10 Numeric Is Patient Pain Free? Yes Yes Yes 03/19/22 13:01 Wound Center Nurse 2 #9 Left Lower Leg Medial -Time 10:49 -Correct Patient Yes -Correct Side, Site, Position Yes -Correct Procedure Yes -Procedure Performed Yes -Type of Procedure Debridement -Clinical Debridement Subcutaneous -Tissue Removed Subcutaneous -Post Debridement (cm) - Length 1.0 -Post Debridement (cm) - Width 1.0 -Post Debridement (cm) - Depth 0.1 -Total Square (Post) (cm) 1.00 -Area of Debridement (cm) - Length 1.0 -Area of Debridement (cm) - Width 1.0 -Total Square (Area) (cm) 1.00 -Tunneling No -Undermining/Tunneling No -Circular Undermining No -Wound/Ulcer Outcome Not Healed -Ulcer Cleansing Rinsed/ Irrigated with Saline -Foul Odor after Cleansing No -Bioengineered Tissue Yes -Type of Bioengineered Tissue Epifix -Expiration Date 12/24/26 -Product Lot Number [id number] -Percent Used 100 -Lot number of Saline Used [id number] -Bleeding Controlled with Pressure -Treatment Response Procedure Tolerated Well -Debridement - Subq, 1st 20sq cm No -Apply Skin Sub - 1st 25 sq cm - Legs 1 -Epifix (per sq cm) 4 #2 Left Gr Toe -Time -Correct Patient -Correct Side, Site, Position -Correct Procedure -Procedure Performed No -Type of Procedure -Clinical Debridement -Tissue Removed -Post Debridement (cm) - Length -Post Debridement (cm) - Width -Post Debridement (cm) - Depth -Total Square (Post) (cm) -Area of Debridement (cm) - Length -Area of Debridement (cm) - Width -Total Square (Area) (cm) -Tunneling -Undermining/Tunneling -Circular Undermining -Wound/Ulcer Outcome -Ulcer Cleansing -Foul Odor after Cleansing -Bioengineered Tissue -Bleeding Controlled with -Treatment Response -Debridement - Subq, 1st 20sq cm Pain Scale: 0-10 Numeric Is Patient Pain Free? Yes WC - Nurse 3 - General Ulcer D/C NN Start: 02/26/22 10:35 Freq: Status: Active Protocol: Activity Type Activity Date Activity User E-sign Co-sign Detail Recorded Client Recorded Date Recorded By Document 02/26/22 11:12 KR [id number] 02/26/22 11:13 KR Document 03/05/22 11:13 [id number] 03/05/22 11:14 JF Document 03/12/22 11:29 KR [id number] 03/12/22 11:30 KR Document 03/19/22 11:34 MN [id number] 03/19/22 11:37 MN 02/26/22 03/05/22 03/12/22 11:12 11:13 11:29 Wound Care Nurse 3 #9 Left Lower Leg Medial -Ulcer Cleansing Rinsed/ Rinsed/ Irrigated with Irrigated with Saline Saline -Foul Odor after Cleansing No -Primary Dressing Covered/Secured with Dry Gauze & Dry Gauze,Dry Roll Gauze, Gauze & Roll Secured with Gauze,Secured Tape with Tape #2 Left Gr Toe -Ulcer Cleansing Rinsed/ Rinsed/ Rinsed/ Irrigated with Irrigated with Irrigated with Saline Saline Saline -Foul Odor after Cleansing No -Primary Dressing Applied C Hydrogel ($), Promogran Chuyita Matter -Primary Dressing Covered/Secured with Dry Gauze, Dry Gauze & Dry Gauze, Secured with Roll Gauze, Secured with Tape Secured with Tape Tape -Promogran Chuyita Matter 1 Right -Tubular Bandage Single Layer -Size of Tubigrip Used Size D -Size D ($) 1 -Stockings -Other Left -Tubular Bandage Single Layer -Size of Tubigrip Used Size D -Size D ($) 1 -Stockings -Other Pain Scale: 0-10 Numeric Is Patient Pain Free? Yes Yes Yes WC - Visit Discharge Discharge Condition Stable Stable Stable Ambulatory Status Ambulatory,Cane Ambulatory,Cane Ambulatory,Cane Transportation Private Auto Private Auto Private Auto Medication Reconcilliation completed & Yes provided to patient/care provider Clinical Summary of Care Provided Yes Notes: 03/19/22 11:34 Wound Care Nurse 3 #9 Left Lower Leg Medial -Ulcer Cleansing -Foul Odor after Cleansing -Primary Dressing Covered/Secured with Dry Gauze & Roll Gauze, Secured with Tape #2 Left Gr Toe -Ulcer Cleansing -Foul Odor after Cleansing -Primary Dressing Applied -Primary Dressing Covered/Secured with Dry Gauze, Secured with Tape -Promogran Chuyita Matter Right -Tubular Bandage -Size of Tubigrip Used -Size D ($) -Stockings Yes -Other pt brought own tubigrip Left -Tubular Bandage -Size of Tubigrip Used -Size D ($) -Stockings Yes -Other pt brought own tubigrip Pain Scale: 0-10 Numeric Is Patient Pain Free? Yes WC - Visit Discharge Discharge Condition Stable Ambulatory Status Ambulatory Transportation Private Auto Medication Reconcilliation completed & No provided to patient/care provider Clinical Summary of Care Provided Yes Notes: pt verbalizes understanding to keep wound dry Additional Wound Wound debrided: Left plantar hallux medial IPJ Laterality: Left Wound Grade/Stage: Russell stage I Type of Debridement: Selective debridement Anesthesia Used: 5% Lidocaine Gel Depth: Down to and including healthy tissue and in the subcutaneous layer Percentage of wound debrided: 100 Instrument Used: - (313 blade) Tissue Removed: Fibrous, devitalized subcutaneous, biofilm, slough Severity: Fat Layer Exposed Amount of bleeding with debridement: Mild Bleeding Controlled with: Compression and gauze Patient tolerated procedure: Patient tolerated procedure well Assessment/Plan Assessment/Plan (1) Non-pressure chronic ulcer of left calf with fat layer exposed: CODE(S): L97.222 - Non-pressure chronic ulcer of left calf with fat layer exposed (2) Non-pressure 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: CODE(S): L97.522 - Non-pressure 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 (3) Varicose veins of left lower extremity with ulcer of calf: CODE(S): I83.022 - Varicose veins of left lower extremity with ulcer of calf (4) Chronic venous insufficiency: PLAN: Plan Patient seen and evaluated. I discussed her case today. Left lower extremity ulceration secondary to eschar being removed by article of clothing. Ulcerative site measures 0.5 cm x 0.6 cm x 0.1 cm. No localized signs of infection. Ulceration underwent sharp debridement as noted in the clinical panel above. Epi fix graft #3 applied to ulcerative site and dressed with Adaptic touch and Steri-Strips. She was instructed to change outer dressings as needed and to not get the site wet. This ulceration is responding well to the epi fix and decreasing in size versus previous visit. 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 I debrided the left hallux medial IPJ hyperkeratotic tissue as stated in the clinical panel above. Ulceration site demonstrates no signs of infection.? Left hallux ulceration site is showing progression and decreasing in size overall and granulating in well with continued evidence of new skin formation across the wound bed, but still has some callus buildup about the site. This wound is nearing closure, but continued pressure reduction is essential.?She continues to offload the first metatarsophalangeal joint and hallux with an offloading pad to the plantar first metatarsal head and about the hallux. Hallux ulceration site was dressed with hydrogel offloading pad to the first metatarsophalangeal joint and about the wound site on the Hallux.? She will continue offloading of the hallux ulceration site with felt pads & surgical shoe. She and her film processing utility worker are aware of our discussion pertaining to possible surgical intervention to remove a portion of bone at the interphalangeal joint of her hallux for pressure reduction and ultimately healing of the ulcerative site.?She continues to state that she will think about this. Radiographs of the left foot demonstrates marginal osteophyte formation medially of the IPJ consistent with moderate arthritic changes of the interphalangeal joint. This marginal osteophyte is creating additional pressure on the hallux wound. I discussed radiographic findings with her film processing utility worker today. Patient to continue to elevate lower extremities in addition to wearing her Tubigrip compression stockings bilateral to aid in edema control.?I discussed with her that she is to continue to elevate her feet at times of rest. Patient voices understanding of this. The following work up and care recommendations were made: Dressing: Hydrogel left hallux, DSD, cotton, Coban and an offloading pad to the first metatarsophalangeal joint and about the hallux Wash: Soap and water Tissue growth optimization: Chuyita Offload: Offloading dressing of the first metatarsophalangeal joint and left hallux Vascular: Vascular status intact with palpable pedal pulses. She had venous studies performed confirming reflux of the left great saphenous vein with no deep venous thrombosis bilaterally. Edema: Elevation of the left lower extremity and right lower extremity control to control edema.?Patient instructed to wear double Tubigrip stockings Infection: No localized signs of infection Pain: May take ybax-gis-yocurmp Tylenol, safe oral anti-inflammatory use discussed. Host factors: Chronic venous insufficiency ? I answered all the patient's questions.? To return to the wound healing center in 1 week or call sooner if the patient has any questions or concerns. Note: [employer] speech recognition divisional human resources director software was used to create portions of this document. Sound-alike and misspelled words, as well as other divisional human resources director errors may be contained in the documentation.
== END 2022-03-25 23:59 | disposition home or self-care (01) ==
LOC: WC 10:15
PROVIDERS: PCP Family Medicine; Referring Provider Student in an Organized Health Care Education/Training Program; Visit Provider Student in an Organized Health Care Education/Training Program
DX: L97.522 Non-pressure 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 (principal); L97.222 Non-pressure chronic ulcer of left calf with fat layer exposed; I83.022 Varicose veins of left lower extremity with ulcer of calf
CPT/HCPCS: 11042; 15271; 73630; 73660; Q4186

== ENCOUNTER 2022-04-23 10:15 | Outpatient (RCR) | payer MEDICARE, OTHER, SELFPAY ==
[2022-03-26 00:28] VITALS: BP 128/75; PULSE 78; RESP 18; TEMP 36.4; BMI 25.7
[2022-03-26 10:27] VITALS: BP 164/53; PULSE 64; RESP 18; TEMP 36.6; BMI 25.7
--- NOTE | 2022-03-26 13:02 | PCM.WC.PN ---
History of Present Illness Date of Service: 03/26/22 Chief Complaint: Bilateral knee wound History of Wound: Ms. Castro is an 86-year-old who is currently being seen for below knee ulcers however I was asked to see due to nonhealing bilateral knee wound. Said to have been sustained about 2 weeks ago when she fell on her knees. Initially had apply Chuyita to the area however, worsening was noted this week. She states that there has been a lot of rubbing underneath her clothing and so dressing has not stayed on adequately. She feels well. Denies chills, fever or feeling of unwell. 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 She has been applying offloading padding subfirst metatarsophalangeal joint and about the hallux.? She is changing the dressings to the left lower extremity as needed. Patient denies any constitutional symptoms. Patient has no further complaints. Objective Data Objective Data Vital Signs: Vital Signs Temp Pulse Resp BP O2 Del Method 98 F 64 18 164/53 H Room Air 03/26/22 10:27 03/26/22 10:27 03/26/22 10:27 03/26/22 10:27 03/26/22 10:27 Oxygen Delivery Method Room Air Weight: 70.307 kg Body Mass Index (BMI) 25.7 Physical Exam Const alert, oriented x3 and no apparent distress General Appearance: cooperative HEENT normocephalic Eyes General Eye: normal appearance of both eyes Neck General: normal visual inspection Lymph Lymphatic: no lymphadenopathy noted Resp normal respiratory effort Cardio regular rate and regular rhythm Extremity normal capillary refill, no joint enlargement, no calf tenderness and no pedal edema Extremity Narrative: Right Lower Extremity: foot and digits Positive for ROM (Decreased range of motion at the first metatarsophalangeal joint secondary to end-stage hallux limitus/rigidus) Left Lower Extremity: foot and digits Positive for ROM (Decreased range of motion at the first metatarsophalangeal joint secondary to end-stage hallux limitus/rigidus) Skin no rashes or lesions noted, skin turgor normal and no jaundice General Skin Exam: venous stasis and dermatitis Wound Narrative: Left lower extremity: Skin intact with brawny discoloration and hemosiderin deposition secondary to venous insufficiency/stasis.? There is a new ulceration left anterior medial lower extremity measuring 0.5 cm x 0.6 cm x 0.1 cm. No signs of infection. Left hallux sub-IPJ ulceration demonstrates healthy granular base with surrounding hyperkeratotic tissue. No signs of infection. Right lower extremity lateral ankle ulceration remains healed.? No localized signs of infection Neuro oriented x3 and moves all extremities Debridement Note Debridement Note Wound debrided: Left anterior lower extremity Laterality: Left Wound Grade/Stage: Russell stage I Type of Debridement: Excisional debridement Anesthesia Used: 5% Lidocaine Gel Depth: Down to and including healthy tissue and in the subcutaneous layer Percentage of wound debrided: 100 Instrument Used: 3mm curette Tissue Removed: Fibrous, devitalized subcutaneous, biofilm, slough Severity: Limited To Skin Breakdown Amount of bleeding with debridement: Mild Bleeding Controlled with: Compression and gauze Patient tolerated procedure: Patient tolerated procedure well Post-Debridement Measurements and Additional Note: Post-Debridement Measurements/Treatment WC - Nurse 1 - General Ulcer Assessment Start: 03/26/22 10:27 Freq: Status: Active Protocol: ALEX Activity Type Activity Date Activity User E-sign Co-sign Detail Recorded Client Recorded Date Recorded By Document 03/26/22 10:27 MD [id number] 03/26/22 10:45 MD 03/26/22 10:27 Height and Weight Body Mass Index (BMI) 25.7 BMI Classification Overweight Vital Signs Temperature (97.8 F-99.1 F) 98 F Temperature Source Temporal Pulse Rate (60-100) 64 Pulse Location Monitor Respiratory Rate (12-18) 18 Respiratory rate source Observation Oxygen Delivery Method Room Air Blood Pressure (90/60-120/80) 164/53 H Blood Pressure Mean (mm Hg) 90 Source Monitor Position Sitting Blood Pressure Location Left Arm History Since Last Visit- (Skip if this is Patient's initial visit) Has dressing in place as prescribed Yes Has compression in place as prescribed Yes Has offloadiing in place as prescribed Yes Experienced any changes in pain level or Yes management Left Footwear Regular Shoe Right Footwear Regular Shoe Pain Scale: 0-10 Numeric Is Patient Pain Free? Yes WC - Nurse 1 - General Ulcer Measurement Start: 03/26/22 10:27 Freq: Status: Active Protocol: Activity Type Activity Date Activity User E-sign Co-sign Detail Recorded Client Recorded Date Recorded By Document 03/26/22 10:27 MD [id number] 03/26/22 10:45 MD 03/26/22 10:27 Wound Center Nurse 1 #9 Left Lower Leg Medial -Current Size (cm) - Length 0.1 -Current Size (cm) - Width 0.1 -Current Size (cm) - Depth 0.1 -Total Square Cm 0.01 -Exudate Amt Medium -Exudate Type Serosanguineous -Wound Margin Flat & Intact -Granulation Amt Medium (34-66%) -Granulation Quality Pale,[place] -Necrosis Amt Small (1-33%) -Necrotic Tissue Type Adherent Slough -Texture (Vangie-wound Skin Appearance) Assessed -Moisture (Vangie-wound Skin Appearance) Assessed -Color (Vangie-wound Skin Appearance) Assessed -Temperature (Vangie-wound Skin No Abnormality Appearance) (Pt Warm) -Tenderness on Palpation (Vangie-wound No Skin Appearance) -Ulcer Cleansing Rinsed/ Irrigated with Saline -Foul Odor after Cleansing No -Anesthetic Used 4% Lidocaine Solution #2 Left Gr Toe -Current Size (cm) - Length 0.4 -Current Size (cm) - Width 0.5 -Current Size (cm) - Depth 0.2 -Total Square Cm 0.20 -Exudate Amt Small -Exudate Type Serous -Wound Margin Flat & Intact -Granulation Amt Large (67-100%) -Granulation Quality Pale,[place] -Necrosis Amt Medium (34-66%) -Texture (Vangie-wound Skin Appearance) Assessed -Moisture (Vangie-wound Skin Appearance) Assessed -Color (Vangie-wound Skin Appearance) Assessed -Temperature (Vangie-wound Skin No Abnormality Appearance) (Pt Warm) -Tenderness on Palpation (Vangie-wound No Skin Appearance) -Ulcer Cleansing Rinsed/ Irrigated with Saline -Foul Odor after Cleansing No WC - Nurse 2 - General Ulcer CM Notes Start: 03/26/22 10:27 Freq: Status: Active Protocol: Activity Type Activity Date Activity User E-sign Co-sign Detail Recorded Client Recorded Date Recorded By Document 03/26/22 12:35 PL [id number] 03/26/22 12:38 PL 03/26/22 12:35 Wound Center Nurse 2 #9 Left Lower Leg Medial -Time 10:55 -Correct Patient Yes -Correct Side, Site, Position Yes -Correct Procedure Yes -Procedure Performed Yes -Type of Procedure Debridement -Clinical Debridement Subcutaneous -Tissue Removed Subcutaneous -Post Debridement (cm) - Length 0.1 -Post Debridement (cm) - Width 0.1 -Post Debridement (cm) - Depth 0.1 -Total Square (Post) (cm) 0.01 -Area of Debridement (cm) - Length 0.1 -Area of Debridement (cm) - Width 0.1 -Total Square (Area) (cm) 0.01 -Tunneling No -Undermining/Tunneling No -Circular Undermining No -Wound/Ulcer Outcome Not Healed -Ulcer Cleansing Rinsed/ Irrigated with Saline -Foul Odor after Cleansing No -Bioengineered Tissue Yes -Type of Bioengineered Tissue Epifix -Expiration Date 12/24/26 -Product Lot Number [id number] -Percent Used 100 -Bleeding Controlled with Pressure -Treatment Response Procedure Tolerated Well -Debridement - Subq, 1st 20sq cm No -Apply Skin Sub - 1st 25 sq cm - Legs 1 -Epifix (per sq cm) 4 #2 Left Gr Toe -Time 10:55 -Correct Patient Yes -Correct Side, Site, Position Yes -Correct Procedure Yes -Procedure Performed Yes -Type of Procedure Debridement -Clinical Debridement Subcutaneous -Tissue Removed Subcutaneous -Post Debridement (cm) - Length 0.4 -Post Debridement (cm) - Width 0.5 -Post Debridement (cm) - Depth 0.2 -Total Square (Post) (cm) 0.20 -Area of Debridement (cm) - Length 0.4 -Area of Debridement (cm) - Width 0.5 -Total Square (Area) (cm) 0.20 -Tunneling No -Undermining/Tunneling No -Circular Undermining No -Wound/Ulcer Outcome Not Healed -Ulcer Cleansing Rinsed/ Irrigated with Saline -Foul Odor after Cleansing No -Bioengineered Tissue No -Bleeding Controlled with Pressure -Treatment Response Procedure Tolerated Well -Debridement - Subq, 1st 20sq cm No Pain Scale: 0-10 Numeric Is Patient Pain Free? Yes WC - Nurse 3 - General Ulcer D/C NN Start: 03/26/22 10:27 Freq: Status: Active Protocol: Activity Type Activity Date Activity User E-sign Co-sign Detail Recorded Client Recorded Date Recorded By Document 03/26/22 11:26 MD [id number] 03/26/22 11:27 MD 03/26/22 11:26 Wound Care Nurse 3 #9 Left Lower Leg Medial -Primary Dressing Covered/Secured with Dry Gauze, Secured with Tape #2 Left Gr Toe -Primary Dressing Covered/Secured with Dry Gauze, Secured with Tape Right -Other PT OWN TUBIGRIP Left -Other PT OWN TUBIGRIP Pain Scale: 0-10 Numeric Is Patient Pain Free? Yes Additional Wound Wound debrided: Plantar hallux IPJ Laterality: Left Wound Grade/Stage: Russell stage I Type of Debridement: Excisional debridement Anesthesia Used: 5% Lidocaine Gel Depth: Down to and including healthy tissue and in the subcutaneous layer Percentage of wound debrided: 100 Instrument Used: - (313 blade) Tissue Removed: Fibrous, devitalized subcutaneous, biofilm, slough Severity: Fat Layer Exposed Amount of bleeding with debridement: Mild Bleeding Controlled with: Compression and gauze Patient tolerated procedure: Patient tolerated procedure well Assessment/Plan Assessment/Plan (1) Non-pressure chronic ulcer of left calf with fat layer exposed: CODE(S): L97.222 - Non-pressure chronic ulcer of left calf with fat layer exposed (2) Non-pressure 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: CODE(S): L97.522 - Non-pressure 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 (3) Varicose veins of left lower extremity with ulcer of calf: CODE(S): I83.022 - Varicose veins of left lower extremity with ulcer of calf (4) Chronic venous insufficiency: PLAN: Plan Patient seen and evaluated. I discussed her case today. Left lower extremity ulceration secondary to eschar being removed by article of clothing.? Ulcerative site measures 1.0 cm x 0.8 cm x 0.2 cm, post-debridment.? No localized signs of infection.? Ulceration underwent sharp debridement as noted in the clinical panel above.? Epi fix graft #4 applied to ulcerative site and dressed with Adaptic touch and Steri-Strips.? She was instructed to change outer dressings as needed and to not get the site wet.? This ulceration is responding well to the epi fix and decreasing in size versus previous visit. 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 I debrided the left hallux medial IPJ hyperkeratotic tissue as stated in the clinical panel above. Ulceration site demonstrates no signs of infection.? Left hallux ulceration site is showing progression and decreasing in size overall and granulating in well with continued evidence of new skin formation across the wound bed, but still has some callus buildup about the site. This wound is nearing closure, but continued pressure reduction is essential.?She continues to offload the first metatarsophalangeal joint and hallux with an offloading pad to the plantar first metatarsal head and about the hallux. Hallux ulceration site was dressed with hydrogel offloading pad to the first metatarsophalangeal joint and about the wound site on the Hallux.? She will continue offloading of the hallux ulceration site with felt pads & surgical shoe. She and her motorcycle subassembly repairer are aware of our discussion pertaining to possible surgical intervention to remove a portion of bone at the interphalangeal joint of her hallux for pressure reduction and ultimately healing of the ulcerative site.?She continues to state that she will think about this.? Radiographs of the left foot demonstrates marginal osteophyte formation medially of the IPJ consistent with moderate arthritic changes of the interphalangeal joint. This marginal osteophyte is creating additional pressure on the hallux wound.? I discussed radiographic findings with her motorcycle subassembly repairer today. Patient to continue to elevate lower extremities in addition to wearing her Tubigrip compression stockings bilateral to aid in edema control.?I discussed with her that she is to continue to elevate her feet at times of rest. Patient voices understanding of this. The following work up and care recommendations were made: Dressing: Hydrogel left hallux, DSD, cotton, Coban and an offloading pad to the first metatarsophalangeal joint and about the hallux Wash: Soap and water Tissue growth optimization: Chuyita Offload: Offloading dressing of the first metatarsophalangeal joint and left hallux Vascular: Vascular status intact with palpable pedal pulses. She had venous studies performed confirming reflux of the left great saphenous vein with no deep venous thrombosis bilaterally. Edema: Elevation of the left lower extremity and right lower extremity control to control edema.?Patient instructed to wear double Tubigrip stockings Infection: No localized signs of infection Pain: May take [id number] Tylenol, safe oral anti-inflammatory use discussed. Host factors: Chronic venous insufficiency ? I answered all the patient's questions.? To return to the wound healing center in 1 week or call sooner if the patient has any questions or concerns. Note: [employer] speech recognition enforcement officer software was used to create portions of this document. Sound-alike and misspelled words, as well as other enforcement officer errors may be contained in the documentation.
[2022-04-02 10:27] VITALS: BP 154/66; PULSE 65; TEMP 36.1; BMI 25.7
--- NOTE | 2022-04-02 11:22 | PN.PCM_ITS ---
History of Present Illness Date of Service: 04/02/22 Chief Complaint: Bilateral knee wound History of Wound: Ms. Castro is an 86-year-old who is currently being seen for below knee ulcers however I was asked to see due to nonhealing bilateral knee wound. Said to have been sustained about 2 weeks ago when she fell on her knees. Initially had apply Chuyita to the area however, worsening was noted this week. She states that there has been a lot of rubbing underneath her clothing and so dressing has not stayed on adequately. She feels well. Denies chills, fever or feeling of unwell. 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 She has been applying offloading padding subfirst metatarsophalangeal joint and about the hallux.? She is changing the dressings to the left lower extremity as needed. Patient denies any constitutional symptoms. Patient has no further complaints. Objective Data Objective Data Vital Signs: Vital Signs Temp Pulse Resp BP O2 Del Method 97.0 F L 65 18 154/66 H Room Air 04/02/22 10:27 04/02/22 10:27 03/26/22 10:27 04/02/22 10:27 03/26/22 10:27 Oxygen Delivery Method Room Air Weight: 70.307 kg Body Mass Index (BMI) 25.7 Physical Exam Const alert, oriented x3 and no apparent distress General Appearance: cooperative HEENT normocephalic Eyes General Eye: normal appearance of both eyes Neck General: normal visual inspection Lymph Lymphatic: no lymphadenopathy noted Resp normal respiratory effort Cardio regular rate and regular rhythm Extremity normal capillary refill, no joint enlargement, no calf tenderness and no pedal edema Extremity Narrative: Right Lower Extremity: foot and digits Positive for ROM (Decreased range of motion at the first metatarsophalangeal joint secondary to end-stage hallux limitus/rigidus) Left Lower Extremity: foot and digits Positive for ROM (Decreased range of motion at the first metatarsophalangeal joint secondary to end-stage hallux limitus/rigidus) Skin no rashes or lesions noted, skin turgor normal and no jaundice General Skin Exam: venous stasis and dermatitis Wound Narrative: Left lower extremity: Skin intact with brawny discoloration and hemosiderin deposition secondary to venous insufficiency/stasis.? There is a new ulceration left anterior medial lower extremity measuring 1.3 cm x 1.0 cm x 0.1 cm. No signs of infection. Left hallux sub-IPJ ulceration demonstrates healthy granular base with surrounding hyperkeratotic tissue. No signs of infection. Neuro oriented x3 and moves all extremities Debridement Note Debridement Note Wound debrided: Left anterior lower extremity Laterality: Left Wound Grade/Stage: Russell stage I Type of Debridement: Excisional debridement Anesthesia Used: 5% Lidocaine Gel Depth: Down to and including healthy tissue and in the subcutaneous layer Percentage of wound debrided: 100 Instrument Used: 3mm curette Tissue Removed: Fibrous, devitalized subcutaneous, biofilm, slough Severity: Fat Layer Exposed Amount of bleeding with debridement: Mild Bleeding Controlled with: Compression and gauze Patient tolerated procedure: Patient tolerated procedure well Post-Debridement Measurements and Additional Note: Post-Debridement Measurements/Treatment - Nurse 1 - General Ulcer Assessment Start: 03/26/22 10:27 Freq: Status: Active Protocol: [email or web address] Activity Type Activity Date Activity User E-sign Co-sign Detail Recorded Client Recorded Date Recorded By Document 03/26/22 10:27 CT [id number] 03/26/22 10:45 CT Document 04/02/22 10:27 KR [id number] 04/02/22 10:29 KR 03/26/22 04/02/22 10:27 10:27 - Today's Visit Information Type of service Follow-up Visit (Physician/COMPENSATION AND BENEFITS ADVISOR ) Arrival Mode Ambulatory,Cane Patient Identification Verified (Name & Yes ) Height and Weight Body Mass Index (BMI) 25.7 25.7 BMI Classification Overweight Overweight Vital Signs Temperature (97.8 F-99.1 F) 98 F 97.0 F L Temperature Source Temporal Temporal Pulse Rate (60-100) 64 65 Pulse Location Monitor Monitor Respiratory Rate (12-18) 18 Respiratory rate source Observation Oxygen Delivery Method Room Air Blood Pressure (90/60-120/80) 164/53 H 154/66 H Blood Pressure Mean (mm Hg) 90 95 Source Monitor Monitor Position Sitting Sitting Blood Pressure Location Left Arm Right Arm History Since Last Visit- (Skip if this is Patient's initial visit) Have you changed medications since your No last visit? Any new allergies or adverse reactions No Had a fall/change in ADL's that may No increase risk of falls Signs or symptoms of abuse and/or No neglect since last visit Have you been in the hospital since your No last visit? Has dressing in place as prescribed Yes Yes Has compression in place as prescribed Yes N/A Has offloadiing in place as prescribed Yes N/A Experienced any changes in pain level or Yes No management Left Footwear Regular Shoe Regular Shoe Right Footwear Regular Shoe Regular Shoe Pain Scale: 0-10 Numeric Is Patient Pain Free? Yes Yes WC - Nurse 1 - General Ulcer Measurement Start: 03/26/22 10:27 Freq: Status: Active Protocol: Activity Type Activity Date Activity User E-sign Co-sign Detail Recorded Client Recorded Date Recorded By Document 03/26/22 10:27 CT [id number] 03/26/22 10:45 MT Document 04/02/22 10:27 KR [id number] 04/02/22 10:29 KR 03/26/22 04/02/22 10:27 10:27 Wound Center Nurse 1 #9 Left Lower Leg Medial -Current Size (cm) - Length 0.1 1.1 -Current Size (cm) - Width 0.1 1 -Current Size (cm) - Depth 0.1 0.2 -Total Square Cm 0.01 1.1 -Exudate Amt Medium Small -Exudate Type Serosanguineous Serosanguineous -Wound Margin Flat & Intact Distinct, Outline Attached -Granulation Amt Medium (34-66%) Medium (34-66%) -Granulation Quality Pale,White Salmon White Salmon -Necrosis Amt Small (1-33%) None Present (0 %) -Necrotic Tissue Type Adherent Slough -Texture (Vangie-wound Skin Appearance) Assessed Assessed, Scarring -Moisture (Vangie-wound Skin Appearance) Assessed No Abnormality, Assessed -Color (Vangie-wound Skin Appearance) Assessed No Abnormality, Assessed -Temperature (Vangie-wound Skin No Abnormality No Abnormality Appearance) (Pt Warm) (Pt Warm) -Tenderness on Palpation (Vangie-wound No No Skin Appearance) -Ulcer Cleansing Rinsed/ Rinsed/ Irrigated with Irrigated with Saline Saline -Foul Odor after Cleansing No No -Anesthetic Used 4% Lidocaine 5% Lidocaine Solution Gel #2 Left Gr Toe -Current Size (cm) - Length 0.4 0.3 -Current Size (cm) - Width 0.5 0.5 -Current Size (cm) - Depth 0.2 0.1 -Total Square Cm 0.20 0.15 -Exudate Amt Small None Present -Exudate Type Serous -Wound Margin Flat & Intact Distinct, Outline Attached -Granulation Amt Large (67-100%) Small (1-33%) -Granulation Quality Pale,White Salmon White Salmon -Necrosis Amt Medium (34-66%) None Present (0 %) -Texture (Vangie-wound Skin Appearance) Assessed Callus -Moisture (Vangie-wound Skin Appearance) Assessed Maceration -Color (Vangie-wound Skin Appearance) Assessed No Abnormality, Assessed -Temperature (Vangie-wound Skin No Abnormality No Abnormality Appearance) (Pt Warm) (Pt Warm) -Tenderness on Palpation (Vangie-wound No No Skin Appearance) -Ulcer Cleansing Rinsed/ Rinsed/ Irrigated with Irrigated with Saline Saline -Foul Odor after Cleansing No No -Anesthetic Used 5% Lidocaine Gel WC - Nurse 2 - General Ulcer CM Notes Start: 03/26/22 10:27 Freq: Status: Active Protocol: Activity Type Activity Date Activity User E-sign Co-sign Detail Recorded Client Recorded Date Recorded By Document 03/26/22 12:35 PL [id number] 03/26/22 12:38 PL 03/26/22 12:35 Wound Center Nurse 2 #9 Left Lower Leg Medial -Time 10:55 -Correct Patient Yes -Correct Side, Site, Position Yes -Correct Procedure Yes -Procedure Performed Yes -Type of Procedure Debridement -Clinical Debridement Subcutaneous -Tissue Removed Subcutaneous -Post Debridement (cm) - Length 0.1 -Post Debridement (cm) - Width 0.1 -Post Debridement (cm) - Depth 0.1 -Total Square (Post) (cm) 0.01 -Area of Debridement (cm) - Length 0.1 -Area of Debridement (cm) - Width 0.1 -Total Square (Area) (cm) 0.01 -Tunneling No -Undermining/Tunneling No -Circular Undermining No -Wound/Ulcer Outcome Not Healed -Ulcer Cleansing Rinsed/ Irrigated with Saline -Foul Odor after Cleansing No -Bioengineered Tissue Yes -Type of Bioengineered Tissue Epifix -Expiration Date 12/24/26 -Product Lot Number [id number] -Percent Used 100 -Bleeding Controlled with Pressure -Treatment Response Procedure Tolerated Well -Debridement - Subq, 1st 20sq cm No -Apply Skin Sub - 1st 25 sq cm - Legs 1 -Epifix (per sq cm) 4 #2 Left Gr Toe -Time 10:55 -Correct Patient Yes -Correct Side, Site, Position Yes -Correct Procedure Yes -Procedure Performed Yes -Type of Procedure Debridement -Clinical Debridement Subcutaneous -Tissue Removed Subcutaneous -Post Debridement (cm) - Length 0.4 -Post Debridement (cm) - Width 0.5 -Post Debridement (cm) - Depth 0.2 -Total Square (Post) (cm) 0.20 -Area of Debridement (cm) - Length 0.4 -Area of Debridement (cm) - Width 0.5 -Total Square (Area) (cm) 0.20 -Tunneling No -Undermining/Tunneling No -Circular Undermining No -Wound/Ulcer Outcome Not Healed -Ulcer Cleansing Rinsed/ Irrigated with Saline -Foul Odor after Cleansing No -Bioengineered Tissue No -Bleeding Controlled with Pressure -Treatment Response Procedure Tolerated Well -Debridement - Subq, 1st 20sq cm No Pain Scale: 0-10 Numeric Is Patient Pain Free? Yes WC - Nurse 3 - General Ulcer D/C NN Start: 03/26/22 10:27 Freq: Status: Active Protocol: Activity Type Activity Date Activity User E-sign Co-sign Detail Recorded Client Recorded Date Recorded By Document 03/26/22 11:26 CT [id number] 03/26/22 11:27 CT Document 04/02/22 10:52 AK [id number] 04/02/22 10:53 AK Document 04/02/22 11:07 KR [id number] 04/02/22 11:08 KR 03/26/22 04/02/22 04/02/22 11:26 10:52 11:07 Wound Care Nurse 3 #9 Left Lower Leg Medial -Ulcer Cleansing Rinsed/ Irrigated with Saline -Primary Dressing Covered/Secured with Dry Gauze, Dry Gauze & Dry Gauze, Secured with Roll Gauze, Secured with Tape Secured with Tape Tape #2 Left Gr Toe -Primary Dressing Covered/Secured with Dry Gauze, Dry Gauze & Dry Gauze, Secured with Roll Gauze, Secured with Tape Secured with Tape Tape bilateral -Other own tubi Right -Other PT OWN TUBIGRIP Left -Other PT OWN TUBIGRIP Pain Scale: 0-10 Numeric Is Patient Pain Free? Yes No Yes WC - Visit Discharge Discharge Condition Stable Stable Ambulatory Status Ambulatory Ambulatory,Cane Transportation Private Auto Private Auto Accompanied by caregiver friend Medication Reconcilliation completed & Yes provided to patient/care provider Clinical Summary of Care Provided Yes Assessment/Plan Assessment/Plan (1) Non-pressure chronic ulcer of left calf with fat layer exposed: CODE(S): L97.222 - Non-pressure chronic ulcer of left calf with fat layer exposed (2) Non-pressure 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: CODE(S): L97.522 - Non-pressure 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 (3) Varicose veins of left lower extremity with ulcer of calf: CODE(S): I83.022 - Varicose veins of left lower extremity with ulcer of calf (4) Chronic venous insufficiency: PLAN: Plan Patient seen and evaluated. I discussed her case today. Left lower extremity ulceration secondary to eschar being removed by article of clothing.? Ulcerative site measures 1.3 cm x 1.0 cm x 0.2 cm, post-debridment.? No localized signs of infection.? Ulceration underwent sharp debridement as noted in the clinical panel above.? Epi fix graft #5 applied to ulcerative site and dressed with Adaptic touch and Steri-Strips.? She was instructed to change outer dressings as needed and to not get the site wet.? This ulceration is responding well to the epi fix and decreasing in size versus previous visit. 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 I debrided the left hallux medial IPJ hyperkeratotic tissue as stated in the clinical panel above. Ulceration site demonstrates no signs of infection.? Left hallux ulceration site is showing progression and decreasing in size overall and granulating in well with continued evidence of new skin formation across the wound bed, but still has some callus buildup about the site. This wound is nearing closure, but continued pressure reduction is essential.?She continues to offload the first metatarsophalangeal joint and hallux with an offloading pad to the plantar first metatarsal head and about the hallux. Hallux ulceration site was dressed with hydrogel offloading pad to the first metatarsophalangeal joint and about the wound site on the Hallux.? She will continue offloading of the hallux ulceration site with felt pads & surgical shoe. 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 Radiographs of the left foot demonstrates marginal osteophyte formation medially of the IPJ consistent with moderate arthritic changes of the interphalangeal joint. This marginal osteophyte is creating additional pressure on the hallux wound.? She will present to office for surgical discussion to remove prominent bone from the plantar medial hallux. Patient to continue to elevate lower extremities in addition to wearing her Tubigrip compression stockings bilateral to aid in edema control.?I discussed with her that she is to continue to elevate her feet at times of rest. Patient voices understanding of this. The following work up and care recommendations were made: Dressing: Hydrogel left hallux, DSD, cotton, Coban and an offloading pad to the first metatarsophalangeal joint and about the hallux. Epi fix to left anterior lower extremity Wash: Soap and water to the hallux. Do not get leg wound wet Tissue growth optimization: Chuyita. Epi fix Offload: Offloading dressing of the first metatarsophalangeal joint and left hallux Vascular: Vascular status intact with palpable pedal pulses. She had venous studies performed confirming reflux of the left great saphenous vein with no deep venous thrombosis bilaterally. Edema: Elevation of the left lower extremity and right lower extremity control to control edema.?Patient instructed to wear double Tubigrip stockings Infection: No localized signs of infection Pain: May take [id number] Tylenol, safe oral anti-inflammatory use discu ssed. Host factors: Chronic venous insufficiency ? I answered all the patient's questions.? To return to the wound healing center in 1 week or call sooner if the patient has any questions or concerns. Note: [employer] speech recognition filler and trimmer software was used to create portions of this document. Sound-alike and misspelled words, as well as other filler and trimmer errors may be contained in the documentation.
[2022-04-09 10:26] VITALS: BP 157/75; PULSE 64; TEMP 36.4; BMI 25.7
--- NOTE | 2022-04-09 13:19 | PCM.WC.PN ---
History of Present Illness Date of Service: 04/09/22 Chief Complaint: Bilateral knee wound History of Wound: Ms. Castro is an 86-year-old who is currently being seen for below knee ulcers however I was asked to see due to nonhealing bilateral knee wound. Said to have been sustained about 2 weeks ago when she fell on her knees. Initially had apply Chuyita to the area however, worsening was noted this week. She states that there has been a lot of rubbing underneath her clothing and so dressing has not stayed on adequately. She feels well. Denies chills, fever or feeling of unwell. 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 She has been applying offloading padding subfirst metatarsophalangeal joint and about the hallux.? She is changing the dressings to the left lower extremity as needed. Patient denies any constitutional symptoms. Patient has no further complaints. Objective Data Objective Data Vital Signs: Vital Signs Temp Pulse Resp BP O2 Del Method 97.5 F L 64 18 157/75 H Room Air 04/09/22 10:26 04/09/22 10:26 03/26/22 10:27 04/09/22 10:03/26/22 10:27 Oxygen Delivery Method Room Air Weight: 70.307 kg Body Mass Index (BMI) 25.7 Physical Exam Const alert, oriented x3 and no apparent distress General Appearance: cooperative HEENT normocephalic Eyes General Eye: normal appearance of both eyes Neck General: normal visual inspection Lymph Lymphatic: no lymphadenopathy noted Resp normal respiratory effort Cardio regular rate and regular rhythm Extremity normal capillary refill, no joint enlargement, no calf tenderness and no pedal edema Extremity Narrative: Right Lower Extremity: foot and digits Positive for ROM (Decreased range of motion at the first metatarsophalangeal joint secondary to end-stage hallux limitus/rigidus) Left Lower Extremity: foot and digits Positive for ROM (Decreased range of motion at the first metatarsophalangeal joint secondary to end-stage hallux limitus/rigidus) Skin no rashes or lesions noted, skin turgor normal and no jaundice General Skin Exam: venous stasis and dermatitis Wound Narrative: Left lower extremity: Skin intact with brawny discoloration and hemosiderin deposition secondary to venous insufficiency/stasis.? There is an ulceration left anterior medial lower extremity measuring 1.2 cm x 1.0 cm x 0.1 cm. No signs of infection. Left hallux sub-IPJ ulceration demonstrates healthy granular base with surrounding hyperkeratotic tissue. No signs of infection. Neuro oriented x3 and moves all extremities Debridement Note Debridement Note Wound debrided: Left anterior lower extremity Laterality: Left Wound Grade/Stage: Russell stage I Type of Debridement: Excisional debridement Anesthesia Used: 5% Lidocaine Gel Depth: Down to and including healthy tissue and in the subcutaneous layer Percentage of wound debrided: 100 Instrument Used: 3mm curette Tissue Removed: Fibrous, devitalized subcutaneous, biofilm, slough Severity: Fat Layer Exposed Amount of bleeding with debridement: Mild Bleeding Controlled with: Compression and gauze Patient tolerated procedure: Patient tolerated procedure well Post-Debridement Measurements and Additional Note: Post-Debridement Measurements/Treatment - Nurse 1 - General Ulcer Assessment Start: 03/26/22 10:27 Freq: Status: Active Protocol: [email or web address] Activity Type Activity Date Activity User E-sign Co-sign Detail Recorded Client Recorded Date Recorded By Document 03/26/22 10:27 ME [id number] 03/26/22 10:45 ME Document 04/02/22 10:27 KR [id number] 04/02/22 10:29 KR Document 04/09/22 10:26 KR [id number] 04/09/22 10:28 KR 03/26/22 04/02/22 04/09/22 10:27 10:27 10:26 - Today's Visit Information Type of service Follow-up Visit Follow-up Visit (Physician/ATHLETIC INSTRUCTOR (Physician/ATHLETIC INSTRUCTOR ) ) Arrival Mode Ambulatory,Cane Ambulatory,Cane Accompanied by child care giver Patient Identification Verified (Name & Yes Yes ) Height and Weight Body Mass Index (BMI) 25.7 25.7 25.7 BMI Classification Overweight Overweight Overweight Vital Signs Temperature (97.8 F-99.1 F) 98 F 97.0 F L 97.5 F L Temperature Source Temporal Temporal Temporal Pulse Rate (60-100) 64 65 64 Pulse Location Monitor Monitor Monitor Respiratory Rate (12-18) 18 Respiratory rate source Observation Oxygen Delivery Method Room Air Blood Pressure (90/60-120/80) 164/53 H 154/66 H 157/75 H Blood Pressure Mean (mm Hg) 90 95 102 Source Monitor Monitor Monitor Position Sitting Sitting Semi-Fowlers Blood Pressure Location Left Arm Right Arm Right Arm History Since Last Visit- (Skip if this is Patient's initial visit) Have you changed medications since your No No last visit? Any new allergies or adverse reactions No No Had a fall/change in ADL's that may No No increase risk of falls Signs or symptoms of abuse and/or No No neglect since last visit Have you been in the hospital since your No No last visit? Has dressing in place as prescribed Yes Yes Yes Has compression in place as prescribed Yes N/A N/A Has offloadiing in place as prescribed Yes N/A N/A Experienced any changes in pain level or Yes No No management Left Footwear Regular Shoe Regular Shoe Regular Shoe Right Footwear Regular Shoe Regular Shoe Regular Shoe Pain Scale: 0-10 Numeric Is Patient Pain Free? Yes Yes Yes - Nurse 1 - General Ulcer Measurement Start: 03/26/22 10:27 Freq: Status: Active Protocol: Activity Type Activity Date Activity User E-sign Co-sign Detail Recorded Client Recorded Date Recorded By Document 03/26/22 10:27 ME [id number] 03/26/22 10:45 ME Document 04/02/22 10:27 KR [id number] 04/02/22 10:29 KR Document 04/09/22 10:26 KR [id number] 04/09/22 10:28 KR 03/26/22 04/02/22 04/09/22 10:27 10:27 10:26 Wound Center Nurse 1 #9 Left Lower Leg Medial -Current Size (cm) - Length 0.1 1.1 0.6 -Current Size (cm) - Width 0.1 1 0.7 -Current Size (cm) - Depth 0.1 0.2 0.2 -Total Square Cm 0.01 1.1 0.42 -Exudate Amt Medium Small Medium -Exudate Type Serosanguineous Serosanguineous Serosanguineous -Wound Margin Flat & Intact Distinct, Distinct, Outline Outline Attached Attached -Granulation Amt Medium (34-66%) Medium (34-66%) Medium (34-66%) -Granulation Quality Pale,[place] Red -Necrosis Amt Small (1-33%) None Present (0 Small (1-33%) %) -Necrotic Tissue Type Adherent Slough Adherent Slough -Texture (Vangie-wound Skin Appearance) Assessed Assessed, Assessed, Scarring Scarring -Moisture (Vangie-wound Skin Appearance) Assessed No Abnormality, No Abnormality, Assessed Assessed -Color (Vangie-wound Skin Appearance) Assessed No Abnormality, No Abnormality, Assessed Assessed -Temperature (Vangie-wound Skin No Abnormality No Abnormality No Abnormality Appearance) (Pt Warm) (Pt Warm) (Pt Warm) -Tenderness on Palpation (Vangie-wound No No No Skin Appearance) -Ulcer Cleansing Rinsed/ Rinsed/ Soap and Water Irrigated with Irrigated with Saline Saline -Foul Odor after Cleansing No No No -Anesthetic Used 4% Lidocaine 5% Lidocaine 5% Lidocaine Solution Gel Gel #2 Left Gr Toe -Current Size (cm) - Length 0.4 0.3 0.2 -Current Size (cm) - Width 0.5 0.5 0.2 -Current Size (cm) - Depth 0.2 0.1 0.1 -Total Square Cm 0.20 0.15 0.04 -Exudate Amt Small None Present Small -Exudate Type Serous Yellow/Green -Wound Margin Flat & Intact Distinct, Distinct, Outline Outline Attached Attached -Granulation Amt Large (67-100%) Small (1-33%) Small (1-33%) -Granulation Quality Pale,[place] Red -Necrosis Amt Medium (34-66%) None Present (0 None Present (0 %) %) -Texture (Vangie-wound Skin Appearance) Assessed Callus Assessed, Scarring -Moisture (Vangie-wound Skin Appearance) Assessed Maceration No Abnormality, Assessed -Color (Vangie-wound Skin Appearance) Assessed No Abnormality, No Abnormality, Assessed Assessed -Temperature (Vangie-wound Skin No Abnormality No Abnormality No Abnormality Appearance) (Pt Warm) (Pt Warm) (Pt Warm) -Tenderness on Palpation (Vangie-wound No No No Skin Appearance) -Ulcer Cleansing Rinsed/ Rinsed/ Soap and Water Irrigated with Irrigated with Saline Saline -Foul Odor after Cleansing No No No -Anesthetic Used 5% Lidocaine 5% Lidocaine Gel Gel WC - Nurse 2 - General Ulcer CM Notes Start: 03/26/22 10:27 Freq: Status: Active Protocol: Activity Type Activity Date Activity User E-sign Co-sign Detail Recorded Client Recorded Date Recorded By Document 03/26/22 12:35 PL [id number] 03/26/22 12:38 PL Document 04/02/22 12:19 PL [id number] 04/02/22 12:22 PL 03/26/22 04/02/22 12:35 12:19 Wound Center Nurse 2 #9 Left Lower Leg Medial -Time 10:55 10:37 -Correct Patient Yes Yes -Correct Side, Site, Position Yes Yes -Correct Procedure Yes Yes -Procedure Performed Yes Yes -Type of Procedure Debridement Debridement -Clinical Debridement Subcutaneous Subcutaneous -Tissue Removed Subcutaneous Subcutaneous -Post Debridement (cm) - Length 0.1 1.1 -Post Debridement (cm) - Width 0.1 1.0 -Post Debridement (cm) - Depth 0.1 0.1 -Total Square (Post) (cm) 0.01 1.10 -Area of Debridement (cm) - Length 0.1 1.1 -Area of Debridement (cm) - Width 0.1 1.0 -Total Square (Area) (cm) 0.01 1.10 -Tunneling No No -Undermining/Tunneling No No -Circular Undermining No No -Wound/Ulcer Outcome Not Healed Not Healed -Ulcer Cleansing Rinsed/ Rinsed/ Irrigated with Irrigated with Saline Saline -Foul Odor after Cleansing No No -Bioengineered Tissue Yes Yes -Type of Bioengineered Tissue Epifix Epifix 18mm Disc -Expiration Date 12/24/26 12/24/26 -Product Lot Number [id number] -Percent Used 100 100 -Bleeding Controlled with Pressure Pressure -Treatment Response Procedure Procedure Tolerated Well Tolerated Well -Debridement - Subq, 1st 20sq cm No No -Apply Skin Sub - 1st 25 sq cm - Legs 1 -Apply Skin Sub - 1st 25 sq cm - Feet 1 -Epifix (per sq cm) 4 -Epifix 18mm Disc 3 #2 Left Gr Toe -Time 10:55 10:37 -Correct Patient Yes Yes -Correct Side, Site, Position Yes Yes -Correct Procedure Yes Yes -Procedure Performed Yes Yes -Type of Procedure Debridement Debridement -Clinical Debridement Subcutaneous Subcutaneous -Tissue Removed Subcutaneous Subcutaneous -Post Debridement (cm) - Length 0.4 0.3 -Post Debridement (cm) - Width 0.5 0.5 -Post Debridement (cm) - Depth 0.2 0.1 -Total Square (Post) (cm) 0.20 0.15 -Area of Debridement (cm) - Length 0.4 0.3 -Area of Debridement (cm) - Width 0.5 0.5 -Total Square (Area) (cm) 0.20 0.15 -Tunneling No No -Undermining/Tunneling No No -Circular Undermining No No -Wound/Ulcer Outcome Not Healed Not Healed -Ulcer Cleansing Rinsed/ Rinsed/ Irrigated with Irrigated with Saline Saline -Foul Odor after Cleansing No No -Bioengineered Tissue No No -Bleeding Controlled with Pressure Pressure -Treatment Response Procedure Procedure Tolerated Well Tolerated Well -Debridement - Subq, 1st 20sq cm No No Pain Scale: 0-10 Numeric Is Patient Pain Free? Yes Yes WC - Nurse 3 - General Ulcer D/C NN Start: 03/26/22 10:27 Freq: Status: Active Protocol: Activity Type Activity Date Activity User E-sign Co-sign Detail Recorded Client Recorded Date Recorded By Document 03/26/22 11:26 ME [id number] 03/26/22 11:27 ME Document 04/02/22 10:52 AK [id number] 04/02/22 10:53 AK Document 04/02/22 11:07 KR [id number] 04/02/22 11:08 KR Document 04/09/22 11:41 KR [id number] 04/09/22 11:41 KR 03/26/22 04/02/22 04/02/22 11:26 10:52 11:07 Wound Care Nurse 3 #9 Left Lower Leg Medial -Ulcer Cleansing Rinsed/ Irrigated with Saline -Primary Dressing Covered/Secured with Dry Gauze, Dry Gauze & Dry Gauze, Secured with Roll Gauze, Secured with Tape Secured with Tape Tape #2 Left Gr Toe -Primary Dressing Covered/Secured with Dry Gauze, Dry Gauze & Dry Gauze, Secured with Roll Gauze, Secured with Tape Secured with Tape Tape bilateral -Tubular Bandage -Size of Tubigrip Used -Size D ($) -Other own tubi Right -Other PT OWN TUBIGRIP Left -Other PT OWN TUBIGRIP Pain Scale: 0-10 Numeric Is Patient Pain Free? Yes No Yes WC - Visit Discharge Discharge Condition Stable Stable Ambulatory Status Ambulatory Ambulatory,Cane Transportation Private Auto Private Auto Accompanied by caregiver friend Medication Reconcilliation completed & Yes provided to patient/care provider Clinical Summary of Care Provided Yes 04/09/22 11:41 Wound Care Nurse 3 #9 Left Lower Leg Medial -Ulcer Cleansing Rinsed/ Irrigated with Saline -Primary Dressing Covered/Secured with Dry Gauze, Secured with Tape #2 Left Gr Toe -Primary Dressing Covered/Secured with Dry Gauze, Secured with Tape bilateral -Tubular Bandage Single Layer -Size of Tubigrip Used Size D -Size D ($) 1 -Other Right -Other Left -Other Pain Scale: 0-10 Numeric Is Patient Pain Free? Yes WC - Visit Discharge Discharge Condition Stable Ambulatory Status Ambulatory,Cane Transportation Private Auto Accompanied by Medication Reconcilliation completed & provided to patient/care provider Clinical Summary of Care Provided Assessment/Plan Assessment/Plan (1) Non-pressure chronic ulcer of left calf with fat layer exposed: CODE(S): L97.222 - Non-pressure chronic ulcer of left calf with fat layer exposed (2) Non-pressure 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: CODE(S): L97.522 - Non-pressure 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 (3) Varicose veins of left lower extremity with ulcer of calf: CODE(S): I83.022 - Varicose veins of left lower extremity with ulcer of calf (4) Chronic venous insufficiency: PLAN: Plan Patient seen and evaluated. I discussed her case today. Left lower extremity ulceration secondary to eschar being removed by article of clothing.? Ulcerative site measures 1.2 cm x 1.0 cm x 0.2 cm, post-debridment.? No localized signs of infection.? Ulceration underwent sharp debridement as noted in the clinical panel above.? Epi fix graft #6 applied to ulcerative site and dressed with Adaptic touch and Steri-Strips.? She was instructed to change outer dressings as needed and to not get the site wet.? This ulceration is responding well to the epi fix and decreasing in size versus previous visit. 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 I debrided the left hallux medial IPJ hyperkeratotic tissue as stated in the clinical panel above. Ulceration site demonstrates no signs of infection.? Left hallux ulceration site is showing progression and decreasing in size overall and granulating in well with continued evidence of new skin formation across the wound bed, but still has some callus buildup about the site. This wound is nearing closure, but continued pressure reduction is essential.?She continues to offload the first metatarsophalangeal joint and hallux with an offloading pad to the plantar first metatarsal head and about the hallux. Hallux ulceration site was dressed with hydrogel offloading pad to the first metatarsophalangeal joint and about the wound site on the Hallux.? She will continue offloading of the hallux ulceration site with felt pads & surgical shoe. She and her flight kitchen manager are aware of our discussion pertaining to possible surgical intervention to remove a portion of bone at the interphalangeal joint of her hallux for pressure reduction and ultimately healing of the ulcerative site.?She states that she would like to undergo surgical removal of this bone fragment to aid in her wound healing.? Radiographs of the left foot demonstrates marginal osteophyte formation medially of the IPJ consistent with moderate arthritic changes of the interphalangeal joint. This marginal osteophyte is creating additional pressure on the hallux wound.? She will present to office for surgical discussion in April to remove prominent bone from the plantar medial hallux. Patient to continue to elevate lower extremities in addition to wearing her Tubigrip compression stockings bilateral to aid in edema control.?I discussed with her that she is to continue to elevate her feet at times of rest. Patient voices understanding of this. The following work up and care recommendations were made: Dressing: Hydrogel left hallux, DSD, cotton, Coban and an offloading pad to the first metatarsophalangeal joint and about the hallux. Epi fix to left anterior lower extremity Wash: Soap and water to the hallux. Do not get leg wound wet Tissue growth optimization: Chuyita. Epi fix Offload: Offloading dressing of the first metatarsophalangeal joint and left hallux Vascular: Vascular status intact with palpable pedal pulses. She had venous studies performed confirming reflux of the left great saphenous vein with no deep venous thrombosis bilaterally. Edema: Elevation of the left lower extremity and right lower extremity control to control edema.?Patient instructed to wear double Tubigrip stockings Infection: No localized signs of infection Pain: May take [id number] Tylenol, safe oral anti-inflammatory use discussed. Host factors: Chronic venous insufficiency ? I answered all the patient's questions.? To return to the wound healing center in 1 week or call sooner if the patient has any questions or concerns. Note: [email or web address] speech recognition associate professor of art software was used to create portions of this document. Sound-alike and misspelled words, as well as other associate professor of art errors may be contained in the documentation.
--- NOTE | 2022-04-16 11:46 | PCM.WC.PN ---
History of Present Illness Date of Service: 04/16/22 Chief Complaint: Bilateral knee wound History of Wound: Ms. Castro is an 86-year-old who is currently being seen for below knee ulcers however I was asked to see due to nonhealing bilateral knee wound. Said to have been sustained about 2 weeks ago when she fell on her knees. Initially had apply Chuyita to the area however, worsening was noted this week. She states that there has been a lot of rubbing underneath her clothing and so dressing has not stayed on adequately. She feels well. Denies chills, fever or feeling of unwell. 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 She has been applying offloading padding subfirst metatarsophalangeal joint and about the hallux.? She is changing the dressings to the left lower extremity as needed. Patient denies any constitutional symptoms. Patient has no further complaints. Objective Data Objective Data Vital Signs: Vital Signs Temp Pulse Resp BP O2 Del Method 97.5 F L 64 18 157/75 H Room Air 04/09/22 10:26 04/09/22 10:26 03/26/22 10:27 04/09/22 10:03/26/22 10:27 Oxygen Delivery Method Room Air Weight: 70.307 kg Body Mass Index (BMI) 25.7 Physical Exam Const alert, oriented x3 and no apparent distress General Appearance: cooperative HEENT normocephalic Eyes General Eye: normal appearance of both eyes Neck General: normal visual inspection Lymph Lymphatic: no lymphadenopathy noted Resp normal respiratory effort Cardio regular rate and regular rhythm Extremity normal capillary refill, no joint enlargement, no calf tenderness and no pedal edema Extremity Narrative: Right Lower Extremity: foot and digits Positive for ROM (Decreased range of motion at the first metatarsophalangeal joint secondary to end-stage hallux limitus/rigidus) Left Lower Extremity: foot and digits Positive for ROM (Decreased range of motion at the first metatarsophalangeal joint secondary to end-stage hallux limitus/rigidus) Skin no rashes or lesions noted, skin turgor normal and no jaundice General Skin Exam: venous stasis and dermatitis Wound Narrative: Left lower extremity: Skin intact with brawny discoloration and hemosiderin deposition secondary to venous insufficiency/stasis.? There is an ulceration left anterior medial lower extremity measuring 1.2 cm x 1.0 cm x 0.1 cm. No signs of infection. Left hallux sub-IPJ ulceration demonstrates healthy granular base with surrounding hyperkeratotic tissue. No signs of infection. Neuro oriented x3 and moves all extremities Debridement Note Debridement Note Wound debrided: Left anterior lower extremity Laterality: Left Wound Grade/Stage: Russell stage I Type of Debridement: Excisional debridement Anesthesia Used: 5% Lidocaine Gel Depth: Down to and including healthy tissue and in the subcutaneous layer Percentage of wound debrided: 100 Instrument Used: 3mm curette Tissue Removed: Fibrous, devitalized subcutaneous, biofilm, slough Severity: Fat Layer Exposed Amount of bleeding with debridement: Mild Bleeding Controlled with: Compression and gauze Patient tolerated procedure: Patient tolerated procedure well Post-Debridement Measurements and Additional Note: Post-Debridement Measurements/Treatment - Nurse 1 - General Ulcer Assessment Start: 03/26/22 10:27 Freq: Status: Active Protocol: BRAN.AYDE Activity Type Activity Date Activity User E-sign Co-sign Detail Recorded Client Recorded Date Recorded By Document 03/26/22 10:27 OR [id number] 03/26/22 10:45 OR Document 04/02/22 10:27 KR [id number] 04/02/22 10:29 KR Document 04/09/22 10:26 KR [id number] 04/09/22 10:28 KR 03/26/22 04/02/22 04/09/22 10:27 10:27 10:26 - Today's Visit Information Type of service Follow-up Visit Follow-up Visit (Physician/PSYCHODRAMATIST (Physician/PSYCHODRAMATIST ) ) Arrival Mode Ambulatory,Cane Ambulatory,Cane Accompanied by hearing care professional Patient Identification Verified (Name & Yes Yes ) Height and Weight Body Mass Index (BMI) 25.7 25.7 25.7 BMI Classification Overweight Overweight Overweight Vital Signs Temperature (97.8 F-99.1 F) 98 F 97.0 F L 97.5 F L Temperature Source Temporal Temporal Temporal Pulse Rate (60-100) 64 65 64 Pulse Location Monitor Monitor Monitor Respiratory Rate (12-18) 18 Respiratory rate source Observation Oxygen Delivery Method Room Air Blood Pressure (90/60-120/80) 164/53 H 154/66 H 157/75 H Blood Pressure Mean (mm Hg) 90 95 102 Source Monitor Monitor Monitor Position Sitting Sitting Semi-Fowlers Blood Pressure Location Left Arm Right Arm Right Arm History Since Last Visit- (Skip if this is Patient's initial visit) Have you changed medications since your No No last visit? Any new allergies or adverse reactions No No Had a fall/change in ADL's that may No No increase risk of falls Signs or symptoms of abuse and/or No No neglect since last visit Have you been in the hospital since your No No last visit? Has dressing in place as prescribed Yes Yes Yes Has compression in place as prescribed Yes N/A N/A Has offloadiing in place as prescribed Yes N/A N/A Experienced any changes in pain level or Yes No No management Left Footwear Regular Shoe Regular Shoe Regular Shoe Right Footwear Regular Shoe Regular Shoe Regular Shoe Pain Scale: 0-10 Numeric Is Patient Pain Free? Yes Yes Yes - Nurse 1 - General Ulcer Measurement Start: 03/26/22 10:27 Freq: Status: Active Protocol: Activity Type Activity Date Activity User E-sign Co-sign Detail Recorded Client Recorded Date Recorded By Document 03/26/22 10:27 OR [id number] 03/26/22 10:45 OR Document 04/02/22 10:27 KR [id number] 04/02/22 10:29 KR Document 04/09/22 10:26 KR [id number] 04/09/22 10:28 KR 03/26/22 04/02/22 04/09/22 10:27 10:27 10:26 Wound Center Nurse 1 #9 Left Lower Leg Medial -Current Size (cm) - Length 0.1 1.1 0.6 -Current Size (cm) - Width 0.1 1 0.7 -Current Size (cm) - Depth 0.1 0.2 0.2 -Total Square Cm 0.01 1.1 0.42 -Exudate Amt Medium Small Medium -Exudate Type Serosanguineous Serosanguineous Serosanguineous -Wound Margin Flat & Intact Distinct, Distinct, Outline Outline Attached Attached -Granulation Amt Medium (34-66%) Medium (34-66%) Medium (34-66%) -Granulation Quality Pale,[place] Red -Necrosis Amt Small (1-33%) None Present (0 Small (1-33%) %) -Necrotic Tissue Type Adherent Slough Adherent Slough -Texture (Vangie-wound Skin Appearance) Assessed Assessed, Assessed, Scarring Scarring -Moisture (Vangie-wound Skin Appearance) Assessed No Abnormality, No Abnormality, Assessed Assessed -Color (Vangie-wound Skin Appearance) Assessed No Abnormality, No Abnormality, Assessed Assessed -Temperature (Vangie-wound Skin No Abnormality No Abnormality No Abnormality Appearance) (Pt Warm) (Pt Warm) (Pt Warm) -Tenderness on Palpation (Vangie-wound No No No Skin Appearance) -Ulcer Cleansing Rinsed/ Rinsed/ Soap and Water Irrigated with Irrigated with Saline Saline -Foul Odor after Cleansing No No No -Anesthetic Used 4% Lidocaine 5% Lidocaine 5% Lidocaine Solution Gel Gel #2 Left Gr Toe -Current Size (cm) - Length 0.4 0.3 0.2 -Current Size (cm) - Width 0.5 0.5 0.2 -Current Size (cm) - Depth 0.2 0.1 0.1 -Total Square Cm 0.20 0.15 0.04 -Exudate Amt Small None Present Small -Exudate Type Serous Yellow/Green -Wound Margin Flat & Intact Distinct, Distinct, Outline Outline Attached Attached -Granulation Amt Large (67-100%) Small (1-33%) Small (1-33%) -Granulation Quality Pale,[place] Red -Necrosis Amt Medium (34-66%) None Present (0 None Present (0 %) %) -Texture (Vangie-wound Skin Appearance) Assessed Callus Assessed, Scarring -Moisture (Vangie-wound Skin Appearance) Assessed Maceration No Abnormality, Assessed -Color (Vangie-wound Skin Appearance) Assessed No Abnormality, No Abnormality, Assessed Assessed -Temperature (Vangie-wound Skin No Abnormality No Abnormality No Abnormality Appearance) (Pt Warm) (Pt Warm) (Pt Warm) -Tenderness on Palpation (Vangie-wound No No No Skin Appearance) -Ulcer Cleansing Rinsed/ Rinsed/ Soap and Water Irrigated with Irrigated with Saline Saline -Foul Odor after Cleansing No No No -Anesthetic Used 5% Lidocaine 5% Lidocaine Gel Gel WC - Nurse 2 - General Ulcer CM Notes Start: 03/26/22 10:27 Freq: Status: Active Protocol: Activity Type Activity Date Activity User E-sign Co-sign Detail Recorded Client Recorded Date Recorded By Document 03/26/22 12:35 PL [id number] 03/26/22 12:38 PL Document 04/02/22 12:19 PL [id number] 04/02/22 12:22 PL Document 04/09/22 13:40 PL [id number] 04/09/22 13:42 PL Document 04/16/22 11:36 PL [id number] 04/16/22 11:39 PL 03/26/22 04/02/22 04/09/22 12:35 12:19 13:40 Wound Center Nurse 2 #9 Left Lower Leg Medial -Time 10:55 10:37 11:19 -Correct Patient Yes Yes Yes -Correct Side, Site, Position Yes Yes Yes -Correct Procedure Yes Yes Yes -Procedure Performed Yes Yes Yes -Type of Procedure Debridement Debridement Debridement -Clinical Debridement Subcutaneous Subcutaneous Subcutaneous -Tissue Removed Subcutaneous Subcutaneous Subcutaneous -Post Debridement (cm) - Length 0.1 1.1 0.6 -Post Debridement (cm) - Width 0.1 1.0 0.7 -Post Debridement (cm) - Depth 0.1 0.1 0.1 -Total Square (Post) (cm) 0.01 1.10 0.42 -Area of Debridement (cm) - Length 0.1 1.1 0.6 -Area of Debridement (cm) - Width 0.1 1.0 0.7 -Total Square (Area) (cm) 0.01 1.10 0.42 -Tunneling No No No -Undermining/Tunneling No No No -Circular Undermining No No No -Wound/Ulcer Outcome Not Healed Not Healed Not Healed -Ulcer Cleansing Rinsed/ Rinsed/ Rinsed/ Irrigated with Irrigated with Irrigated with Saline Saline Saline -Foul Odor after Cleansing No No No -Bioengineered Tissue Yes Yes Yes -Type of Bioengineered Tissue Epifix Epifix 18mm Epifix 18mm Disc Disc -Expiration Date 12/24/26 12/24/26 12/24/26 -Product Lot Number [id number] -Percent Used 100 100 100 -Bleeding Controlled with Pressure Pressure Pressure -Treatment Response Procedure Procedure Procedure Tolerated Well Tolerated Well Tolerated Well -Debridement - Subq, 1st 20sq cm No No No -Apply Skin Sub - 1st 25 sq cm - Legs 1 1 -Apply Skin Sub - 1st 25 sq cm - Feet 1 -Epifix (per sq cm) 4 -Epifix 18mm Disc 3 3 #2 Left Gr Toe -Time 10:55 10:37 11:19 -Correct Patient Yes Yes Yes -Correct Side, Site, Position Yes Yes Yes -Correct Procedure Yes Yes Yes -Procedure Performed Yes Yes Yes -Type of Procedure Debridement Debridement Debridement -Clinical Debridement Subcutaneous Subcutaneous Subcutaneous -Tissue Removed Subcutaneous Subcutaneous Subcutaneous -Post Debridement (cm) - Length 0.4 0.3 0.1 -Post Debridement (cm) - Width 0.5 0.5 0.1 -Post Debridement (cm) - Depth 0.2 0.1 0.1 -Total Square (Post) (cm) 0.20 0.15 0.01 -Area of Debridement (cm) - Length 0.4 0.3 0.1 -Area of Debridement (cm) - Width 0.5 0.5 0.1 -Total Square (Area) (cm) 0.20 0.15 0.01 -Tunneling No No No -Undermining/Tunneling No No No -Circular Undermining No No No -Wound/Ulcer Outcome Not Healed Not Healed Not Healed -Ulcer Cleansing Rinsed/ Rinsed/ Rinsed/ Irrigated with Irrigated with Irrigated with Saline Saline Saline -Foul Odor after Cleansing No No No -Bioengineered Tissue No No No -Bleeding Controlled with Pressure Pressure Pressure -Treatment Response Procedure Procedure Procedure Tolerated Well Tolerated Well Tolerated Well -Debridement - Subq, 1st 20sq cm No No No Pain Scale: 0-10 Numeric Is Patient Pain Free? Yes Yes Yes 04/16/22 11:36 Wound Center Nurse 2 #9 Left Lower Leg Medial -Time 10:42 -Correct Patient Yes -Correct Side, Site, Position Yes -Correct Procedure Yes -Procedure Performed Yes -Type of Procedure Debridement -Clinical Debridement Subcutaneous -Tissue Removed Subcutaneous -Post Debridement (cm) - Length 0.6 -Post Debridement (cm) - Width 0.7 -Post Debridement (cm) - Depth 0.2 -Total Square (Post) (cm) 0.42 -Area of Debridement (cm) - Length 0.6 -Area of Debridement (cm) - Width 0.7 -Total Square (Area) (cm) 0.42 -Tunneling No -Undermining/Tunneling No -Circular Undermining No -Wound/Ulcer Outcome Not Healed -Ulcer Cleansing Rinsed/ Irrigated with Saline -Foul Odor after Cleansing No -Bioengineered Tissue Yes -Type of Bioengineered Tissue Epifix 18mm Disc -Expiration Date 12/24/26 -Product Lot Number [id number] -Percent Used 100 -Bleeding Controlled with Pressure -Treatment Response Procedure Tolerated Well -Debridement - Subq, 1st 20sq cm No -Apply Skin Sub - 1st 25 sq cm - Legs 1 -Apply Skin Sub - 1st 25 sq cm - Feet -Epifix (per sq cm) -Epifix 18mm Disc 3 #2 Left Gr Toe -Time 10:42 -Correct Patient Yes -Correct Side, Site, Position Yes -Correct Procedure Yes -Procedure Performed Yes -Type of Procedure Debridement -Clinical Debridement Subcutaneous -Tissue Removed Subcutaneous -Post Debridement (cm) - Length 0.2 -Post Debridement (cm) - Width 0.2 -Post Debridement (cm) - Depth 0.1 -Total Square (Post) (cm) 0.04 -Area of Debridement (cm) - Length 0.2 -Area of Debridement (cm) - Width 0.2 -Total Square (Area) (cm) 0.04 -Tunneling No -Undermining/Tunneling No -Circular Undermining No -Wound/Ulcer Outcome Not Healed -Ulcer Cleansing Rinsed/ Irrigated with Saline -Foul Odor after Cleansing No -Bioengineered Tissue No -Bleeding Controlled with Pressure -Treatment Response Procedure Tolerated Well -Debridement - Subq, 1st 20sq cm No Pain Scale: 0-10 Numeric Is Patient Pain Free? Yes WC - Nurse 3 - General Ulcer D/C NN Start: 03/26/22 10:27 Freq: Status: Active Protocol: Activity Type Activity Date Activity User E-sign Co-sign Detail Recorded Client Recorded Date Recorded By Document 03/26/22 11:26 MT [id number] 03/26/22 11:27 MT Document 04/02/22 10:52 AK [id number] 04/02/22 10:53 AK Document 04/02/22 11:07 KR [id number] 04/02/22 11:08 KR Document 04/09/22 11:41 KR [id number] 04/09/22 11:41 KR 03/26/22 04/02/22 04/02/22 11:26 10:52 11:07 Wound Care Nurse 3 #9 Left Lower Leg Medial -Ulcer Cleansing Rinsed/ Irrigated with Saline -Primary Dressing Covered/Secured with Dry Gauze, Dry Gauze & Dry Gauze, Secured with Roll Gauze, Secured with Tape Secured with Tape Tape #2 Left Gr Toe -Primary Dressing Covered/Secured with Dry Gauze, Dry Gauze & Dry Gauze, Secured with Roll Gauze, Secured with Tape Secured with Tape Tape bilateral -Tubular Bandage -Size of Tubigrip Used -Size D ($) -Other own tubi Right -Other PT OWN TUBIGRIP Left -Other PT OWN TUBIGRIP Pain Scale: 0-10 Numeric Is Patient Pain Free? Yes No Yes WC - Visit Discharge Discharge Condition Stable Stable Ambulatory Status Ambulatory Ambulatory,Cane Transportation Private Auto Private Auto Accompanied by caregiver friend Medication Reconcilliation completed & Yes provided to patient/care provider Clinical Summary of Care Provided Yes 04/09/22 11:41 Wound Care Nurse 3 #9 Left Lower Leg Medial -Ulcer Cleansing Rinsed/ Irrigated with Saline -Primary Dressing Covered/Secured with Dry Gauze, Secured with Tape #2 Left Gr Toe -Primary Dressing Covered/Secured with Dry Gauze, Secured with Tape bilateral -Tubular Bandage Single Layer -Size of Tubigrip Used Size D -Size D ($) 1 -Other Right -Other Left -Other Pain Scale: 0-10 Numeric Is Patient Pain Free? Yes WC - Visit Discharge Discharge Condition Stable Ambulatory Status Ambulatory,Cane Transportation Private Auto Accompanied by Medication Reconcilliation completed & provided to patient/care provider Clinical Summary of Care Provided Assessment/Plan Assessment/Plan (1) Non-pressure chronic ulcer of left calf with fat layer exposed: CODE(S): L97.222 - Non-pressure chronic ulcer of left calf with fat layer exposed (2) Non-pressure 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: CODE(S): L97.522 - Non-pressure 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 (3) Varicose veins of left lower extremity with ulcer of calf: CODE(S): I83.022 - Varicose veins of left lower extremity with ulcer of calf (4) Chronic venous insufficiency: PLAN: Plan Patient seen and evaluated. I discussed her case today. Left lower extremity ulceration secondary to eschar being removed by article of clothing.? Ulcerative site measures 0.8 cm x 0.7 cm x 0.2 cm, post-debridment.? No localized signs of infection.? Ulceration underwent sharp debridement as noted in the clinical panel above.? Epi fix graft #7 applied to ulcerative site and dressed with Adaptic touch and Steri-Strips.? She was instructed to change outer dressings as needed and to not get the site wet.? This ulceration is responding well to the epi fix and decreasing in size versus previous visit. 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 I debrided the left hallux medial IPJ hyperkeratotic tissue as stated in the clinical panel above. Ulceration site demonstrates no signs of infection.? Left hallux ulceration site is showing progression and decreasing in size overall and granulating in well with continued evidence of new skin formation across the wound bed, but still has some callus buildup about the site. This wound is nearing closure, but continued pressure reduction is essential.?She continues to offload the first metatarsophalangeal joint and hallux with an offloading pad to the plantar first metatarsal head and about the hallux. Hallux ulceration site was dressed with hydrogel offloading pad to the first metatarsophalangeal joint and about the wound site on the Hallux.? She will continue offloading of the hallux ulceration site with felt pads & surgical shoe. She and her post exchange manager are aware of our discussion pertaining to possible surgical intervention to remove a portion of bone at the interphalangeal joint of her hallux for pressure reduction and ultimately healing of the ulcerative site.?She states that she would like to undergo surgical removal of this bone fragment to aid in her wound healing.? Radiographs of the left foot demonstrates marginal osteophyte formation medially of the IPJ consistent with moderate arthritic changes of the interphalangeal joint. This marginal osteophyte is creating additional pressure on the hallux wound.? She will present to office for surgical discussion in April to remove prominent bone from the plantar medial hallux. Patient to continue to elevate lower extremities in addition to wearing her Tubigrip compression stockings bilateral to aid in edema control.?I discussed with her that she is to continue to elevate her feet at times of rest. Patient voices understanding of this. The following work up and care recommendations were made: Dressing: Hydrogel left hallux, DSD, cotton, Coban and an offloading pad to the first metatarsophalangeal joint and about the hallux. Epi fix to left anterior lower extremity Wash: Soap and water to the hallux. Do not get leg wound wet Tissue growth optimization: Chuyita. Epi fix Offload: Offloading dressing of the first metatarsophalangeal joint and left hallux Vascular: Vascular status intact with palpable pedal pulses. She had venous studies performed confirming reflux of the left great saphenous vein with no deep venous thrombosis bilaterally. Edema: Elevation of the left lower extremity and right lower extremity control to control edema.?Patient instructed to wear double Tubigrip stockings Infection: No localized signs of infection Pain: May take [id number] Tylenol, safe oral anti-inflammatory use discussed. Host factors: Chronic venous insufficiency ? I answered all the patient's questions.? To return to the wound healing center in 1 week or call sooner if the patient has any questions or concerns. Note: [employer] speech recognition fish salter software was used to create portions of this document. Sound-alike and misspelled words, as well as other fish salter errors may be contained in the documentation.
[2022-04-16 11:47] VITALS: BP 149/76; PULSE 85; TEMP 36.2; BMI 25.7
[2022-04-23 10:25] VITALS: BP 153/64; PULSE 81; TEMP 36.1; BMI 25.7
--- NOTE | 2022-04-23 12:09 | PN.PCM_ITS ---
History of Present Illness Date of Service: 04/23/22 Chief Complaint: Bilateral knee wound History of Wound: Ms. Castro is an 86-year-old who is currently being seen for below knee ulcers however I was asked to see due to nonhealing bilateral knee wound. Said to have been sustained about 2 weeks ago when she fell on her knees. Initially had apply Ch[place] to the area however, worsening was noted this week. She states that there has been a lot of rubbing underneath her clothing and so dressing has not stayed on adequately. She feels well. Denies chills, fever or feeling of unwell. 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 She has been applying offloading padding subfirst metatarsophalangeal joint and about the hallux.? She is changing the outer dressings to the left lower extremity as needed. Patient denies any constitutional symptoms. Patient has no further complaints. Objective Data Objective Data Vital Signs: Vital Signs Temp Pulse Resp BP O2 Del Method 96.9 F L 81 18 153/64 H Room Air 04/23/22 10:25 04/23/22 10:25 03/26/22 10:27 04/23/22 10:03/26/22 10:27 Oxygen Delivery Method Room Air Weight: 70.307 kg Body Mass Index (BMI) 25.7 Physical Exam Const alert, oriented x3 and no apparent distress General Appearance: cooperative HEENT normocephalic Eyes General Eye: normal appearance of both eyes Neck General: normal visual inspection Lymph Lymphatic: no lymphadenopathy noted Resp normal respiratory effort Cardio regular rate and regular rhythm Extremity normal capillary refill, no joint enlargement, no calf tenderness and no pedal edema Extremity Narrative: Right Lower Extremity: foot and digits Positive for ROM (Decreased range of motion at the first metatarsophalangeal joint secondary to end-stage hallux limitus/rigidus) Left Lower Extremity: foot and digits Positive for ROM (Decreased range of motion at the first metatarsophalangeal joint secondary to end-stage hallux limitus/rigidus) Skin no rashes or lesions noted, skin turgor normal and no jaundice General Skin Exam: venous stasis and dermatitis Wound Narrative: Left lower extremity: Skin intact with brawny discoloration and hemosiderin deposition secondary to venous insufficiency/stasis.? There is an ulceration left anterior medial lower extremity measuring 1.8 cm x 0.9 cm x 0.1 cm. No signs of infection. Left hallux sub-IPJ ulceration demonstrates healthy granular base with surrounding hyperkeratotic tissue. No signs of infection. Neuro oriented x3 and moves all extremities Debridement Note Debridement Note Wound debrided: Left anterior lower extremity Laterality: Left Wound Grade/Stage: Russell stage I Type of Debridement: Excisional debridement Anesthesia Used: 5% Lidocaine Gel Depth: Down to and including healthy tissue and in the subcutaneous layer Percentage of wound debrided: 100 Instrument Used: 3mm curette Tissue Removed: Fibrous, devitalized subcutaneous, biofilm, slough Severity: Fat Layer Exposed Amount of bleeding with debridement: Mild Bleeding Controlled with: Compression and gauze Patient tolerated procedure: Patient tolerated procedure well Post-Debridement Measurements and Additional Note: Post-Debridement Measurements/Treatment - Nurse 1 - General Ulcer Assessment Start: 03/26/22 10:27 Freq: Status: Active Protocol: BRAN.AYDE Activity Type Activity Date Activity User E-sign Co-sign Detail Recorded Client Recorded Date Recorded By Document 03/26/22 10:27 MI [id number] 03/26/22 10:45 MI Document 04/02/22 10:27 KR [id number] 04/02/22 10:29 KR Document 04/09/22 10:26 KR [id number] 04/09/22 10:28 KR Document 04/16/22 11:47 AK [id number] 04/16/22 11:51 AK Document 04/23/22 10:25 AK [id number] 04/23/22 10:28 AK 03/26/22 04/02/22 04/09/22 10:27 10:27 10:26 - Today's Visit Information Type of service Follow-up Visit Follow-up Visit (Physician/[employer] (Physician/[employer] ) ) Arrival Mode Ambulatory,Cane Ambulatory,Cane Accompanied by pet caretaker Patient Identification Verified (Name & Yes Yes ) Patient Requires Transmission-Based Precautions Safety Precautions Height and Weight Body Mass Index (BMI) 25.7 25.7 25.7 BMI Classification Overweight Overweight Overweight Vital Signs Temperature (97.8 F-99.1 F) 98 F 97.0 F L 97.5 F L Temperature Source Temporal Temporal Temporal Pulse Rate (60-100) 64 65 64 Pulse Location Monitor Monitor Monitor Respiratory Rate (12-18) 18 Respiratory rate source Observation Oxygen Delivery Method Room Air Blood Pressure (90/60-120/80) 164/53 H 154/66 H 157/75 H Blood Pressure Mean (mm Hg) 90 95 102 Source Monitor Monitor Monitor Position Sitting Sitting Semi-Fowlers Blood Pressure Location Left Arm Right Arm Right Arm History Since Last Visit- (Skip if this is Patient's initial visit) Have you changed medications since your No No last visit? Any new allergies or adverse reactions No No Had a fall/change in ADL's that may No No increase risk of falls Signs or symptoms of abuse and/or No No neglect since last visit Have you been in the hospital since your No No last visit? Has dressing in place as prescribed Yes Yes Yes Has compression in place as prescribed Yes N/A N/A Has offloadiing in place as prescribed Yes N/A N/A Experienced any changes in pain level or Yes No No management Left Footwear Regular Shoe Regular Shoe Regular Shoe Right Footwear Regular Shoe Regular Shoe Regular Shoe Pain Scale: 0-10 Numeric Is Patient Pain Free? Yes Yes Yes 04/16/22 04/23/22 11:47 10:25 WC - Today's Visit Information Type of service Follow-up Visit Follow-up Visit (Physician/[employer] (Physician/[employer] ) ) Arrival Mode Ambulatory Ambulatory Accompanied by Patient Identification Verified (Name & Yes Yes ) Patient Requires Transmission-Based No No Precautions Safety Precautions NA NA Height and Weight Body Mass Index (BMI) 25.7 25.7 BMI Classification Overweight Overweight Vital Signs Temperature (97.8 F-99.1 F) 97.2 F L 96.9 F L Temperature Source Temporal Temporal Pulse Rate (60-100) 85 81 Pulse Location Monitor Monitor Respiratory Rate (12-18) Respiratory rate source Oxygen Delivery Method Blood Pressure (90/60-120/80) 149/76 H 153/64 H Blood Pressure Mean (mm Hg) 100 93 Source Monitor Monitor Position Blood Pressure Location History Since Last Visit- (Skip if this is Patient's initial visit) Have you changed medications since your No No last visit? Any new allergies or adverse reactions No No Had a fall/change in ADL's that may No No increase risk of falls Signs or symptoms of abuse and/or No No neglect since last visit Have you been in the hospital since your No No last visit? Has dressing in place as prescribed Yes Yes Has compression in place as prescribed Yes N/A Has offloadiing in place as prescribed N/A N/A Experienced any changes in pain level or No No management Left Footwear Regular Shoe Regular Shoe Right Footwear Regular Shoe Regular Shoe Pain Scale: 0-10 Numeric Is Patient Pain Free? Yes No - Nurse 1 - General Ulcer Measurement Start: 03/26/22 10:27 Freq: Status: Active Protocol: Activity Type Activity Date Activity User E-sign Co-sign Detail Recorded Client Recorded Date Recorded By Document 03/26/22 10:27 MI [id number] 03/26/22 10:45 MI Document 04/02/22 10:27 KR [id number] 04/02/22 10:29 KR Document 04/09/22 10:26 KR [id number] 04/09/22 10:28 KR Document 04/16/22 11:47 AK [id number] 04/16/22 11:51 AK Document 04/23/22 10:25 AK [id number] 04/23/22 10:28 AK 03/26/22 04/02/22 04/09/22 10:27 10:27 10:26 Wound Center Nurse 1 #9 Left Lower Leg Medial -Combined with other wound -Current Size (cm) - Length 0.1 1.1 0.6 -Current Size (cm) - Width 0.1 1 0.7 -Current Size (cm) - Depth 0.1 0.2 0.2 -Total Square Cm 0.01 1.1 0.42 -Photo Taken -Epithelialization -Tunneling -Undermining/Tunneling -Circular Undermining -Change in Wound Grade/Stage -Exudate Amt Medium Small Medium -Exudate Type Serosanguineous Serosanguineous Serosanguineous -Wound Margin Flat & Intact Distinct, Distinct, Outline Outline Attached Attached -Granulation Amt Medium (34-66%) Medium (34-66%) Medium (34-66%) -Granulation Quality Pale,Gleneagle Gleneagle Red -Slough/Fibrin -Necrosis Amt Small (1-33%) None Present (0 Small (1-33%) %) -Necrotic Tissue Type Adherent Slough Adherent Slough -Structure Exposed -Texture (Vangie-wound Skin Appearance) Assessed Assessed, Assessed, Scarring Scarring -Moisture (Vangie-wound Skin Appearance) Assessed No Abnormality, No Abnormality, Assessed Assessed -Color (Vangie-wound Skin Appearance) Assessed No Abnormality, No Abnormality, Assessed Assessed -Temperature (Vangie-wound Skin No Abnormality No Abnormality No Abnormality Appearance) (Pt Warm) (Pt Warm) (Pt Warm) -Tenderness on Palpation (Vangie-wound No No No Skin Appearance) -Ulcer Cleansing Rinsed/ Rinsed/ Soap and Water Irrigated with Irrigated with Saline Saline -Foul Odor after Cleansing No No No -Anesthetic Used 4% Lidocaine 5% Lidocaine 5% Lidocaine Solution Gel Gel #2 Left Gr Toe -Combined with other wound -Current Size (cm) - Length 0.4 0.3 0.2 -Current Size (cm) - Width 0.5 0.5 0.2 -Current Size (cm) - Depth 0.2 0.1 0.1 -Total Square Cm 0.20 0.15 0.04 -Photo Taken -Tunneling -Undermining/Tunneling -Circular Undermining -Change in Wound Grade/Stage -Exudate Amt Small None Present Small -Exudate Type Serous Yellow/Green -Wound Margin Flat & Intact Distinct, Distinct, Outline Outline Attached Attached -Granulation Amt Large (67-100%) Small (1-33%) Small (1-33%) -Granulation Quality Pale,Gleneagle Gleneagle Red -Slough/Fibrin -Necrosis Amt Medium (34-66%) None Present (0 None Present (0 %) %) -Structure Exposed -Texture (Vangie-wound Skin Appearance) Assessed Callus Assessed, Scarring -Moisture (Vangie-wound Skin Appearance) Assessed Maceration No Abnormality, Assessed -Color (Vangie-wound Skin Appearance) Assessed No Abnormality, No Abnormality, Assessed Assessed -Temperature (Vangie-wound Skin No Abnormality No Abnormality No Abnormality Appearance) (Pt Warm) (Pt Warm) (Pt Warm) -Tenderness on Palpation (Vangie-wound No No No Skin Appearance) -Ulcer Cleansing Rinsed/ Rinsed/ Soap and Water Irrigated with Irrigated with Saline Saline -Foul Odor after Cleansing No No No -Anesthetic Used 5% Lidocaine 5% Lidocaine Gel Gel 04/16/22 04/23/22 11:47 10:25 Wound Center Nurse 1 #9 Left Lower Leg Medial -Combined with other wound No No -Current Size (cm) - Length 1 1.5 -Current Size (cm) - Width 1 1 -Current Size (cm) - Depth 0.3 0.2 -Total Square Cm 1 1.5 -Photo Taken No No -Epithelialization None Present -Tunneling No No -Undermining/Tunneling No No -Circular Undermining No No -Change in Wound Grade/Stage No No -Exudate Amt Medium Medium -Exudate Type Serosanguineous Serosanguineous -Wound Margin Distinct, Distinct, Outline Outline Attached Attached -Granulation Amt Medium (34-66%) Large (67-100%) -Granulation Quality N/A Gleneagle,Red -Slough/Fibrin No Yes -Necrosis Amt None Present (0 Small (1-33%) %) -Necrotic Tissue Type Adherent Slough -Structure Exposed N/A N/A -Texture (Vangie-wound Skin Appearance) No Abnormality, No Abnormality, Assessed Assessed -Moisture (Vangie-wound Skin Appearance) No Abnormality, No Abnormality, Assessed Assessed -Color (Vangie-wound Skin Appearance) No Abnormality, No Abnormality, Assessed Assessed -Temperature (Vangie-wound Skin No Abnormality No Abnormality Appearance) (Pt Warm) (Pt Warm) -Tenderness on Palpation (Vangie-wound No No Skin Appearance) -Ulcer Cleansing Rinsed/ Soap and Water Irrigated with Saline -Foul Odor after Cleansing No No -Anesthetic Used 5% Lidocaine 5% Lidocaine Gel Gel #2 Left Gr Toe -Combined with other wound No No -Current Size (cm) - Length 0.2 0.1 -Current Size (cm) - Width 0.4 0.1 -Current Size (cm) - Depth 0.1 0.1 -Total Square Cm 0.08 0.01 -Photo Taken Yes No -Tunneling No No -Undermining/Tunneling No No -Circular Undermining No No -Change in Wound Grade/Stage No No -Exudate Amt Small Medium -Exudate Type Serosanguineous Serosanguineous -Wound Margin Distinct, Distinct, Outline Outline Attached Attached -Granulation Amt Medium (34-66%) Small (1-33%) -Granulation Quality Gleneagle N/A -Slough/Fibrin Yes No -Necrosis Amt None Present (0 None Present (0 %) %) -Structure Exposed N/A N/A -Texture (Vangie-wound Skin Appearance) Assessed,Callus Assessed,Callus -Moisture (Vangie-wound Skin Appearance) No Abnormality, No Abnormality, Assessed Assessed -Color (Vangie-wound Skin Appearance) No Abnormality, No Abnormality, Assessed Assessed -Temperature (Vangie-wound Skin No Abnormality No Abnormality Appearance) (Pt Warm) (Pt Warm) -Tenderness on Palpation (Vangie-wound No No Skin Appearance) -Ulcer Cleansing Rinsed/ Rinsed/ Irrigated with Irrigated with Saline Saline -Foul Odor after Cleansing No No -Anesthetic Used 5% Lidocaine 5% Lidocaine Gel Gel WC - Nurse 2 - General Ulcer CM Notes Start: 03/26/22 10:27 Freq: Status: Active Protocol: Activity Type Activity Date Activity User E-sign Co-sign Detail Recorded Client Recorded Date Recorded By Document 03/26/22 12:35 PL [id number] 03/26/22 12:38 PL Document 04/02/22 12:19 PL [id number] 04/02/22 12:22 PL Document 04/09/22 13:40 PL [id number] 04/09/22 13:42 PL Document 04/16/22 11:36 PL [id number] 04/16/22 11:39 PL Document 04/23/22 11:56 PL [id number] 04/23/22 11:59 PL 03/26/22 04/02/22 04/09/22 12:35 12:19 13:40 Wound Center Nurse 2 #9 Left Lower Leg Medial -Time 10:55 10:37 11:19 -Correct Patient Yes Yes Yes -Correct Side, Site, Position Yes Yes Yes -Correct Procedure Yes Yes Yes -Procedure Performed Yes Yes Yes -Type of Procedure Debridement Debridement Debridement -Clinical Debridement Subcutaneous Subcutaneous Subcutaneous -Tissue Removed Subcutaneous Subcutaneous Subcutaneous -Post Debridement (cm) - Length 0.1 1.1 0.6 -Post Debridement (cm) - Width 0.1 1.0 0.7 -Post Debridement (cm) - Depth 0.1 0.1 0.1 -Total Square (Post) (cm) 0.01 1.10 0.42 -Area of Debridement (cm) - Length 0.1 1.1 0.6 -Area of Debridement (cm) - Width 0.1 1.0 0.7 -Total Square (Area) (cm) 0.01 1.10 0.42 -Tunneling No No No -Undermining/Tunneling No No No -Circular Undermining No No No -Wound/Ulcer Outcome Not Healed Not Healed Not Healed -Ulcer Cleansing Rinsed/ Rinsed/ Rinsed/ Irrigated with Irrigated with Irrigated with Saline Saline Saline -Foul Odor after Cleansing No No No -Bioengineered Tissue Yes Yes Yes -Type of Bioengineered Tissue Epifix Epifix 18mm Epifix 18mm Disc Disc -Expiration Date 12/24/26 12/24/26 12/24/26 -Product Lot Number [id number] -Percent Used 100 100 100 -Bleeding Controlled with Pressure Pressure Pressure -Treatment Response Procedure Procedure Procedure Tolerated Well Tolerated Well Tolerated Well -Debridement - Subq, 1st 20sq cm No No No -Apply Skin Sub - 1st 25 sq cm - Legs 1 1 -Apply Skin Sub - 1st 25 sq cm - Feet 1 -Epifix (per sq cm) 4 -Epifix 18mm Disc 3 3 #2 Left Gr Toe -Time 10:55 10:37 11:19 -Correct Patient Yes Yes Yes -Correct Side, Site, Position Yes Yes Yes -Correct Procedure Yes Yes Yes -Procedure Performed Yes Yes Yes -Type of Procedure Debridement Debridement Debridement -Clinical Debridement Subcutaneous Subcutaneous Subcutaneous -Tissue Removed Subcutaneous Subcutaneous Subcutaneous -Post Debridement (cm) - Length 0.4 0.3 0.1 -Post Debridement (cm) - Width 0.5 0.5 0.1 -Post Debridement (cm) - Depth 0.2 0.1 0.1 -Total Square (Post) (cm) 0.20 0.15 0.01 -Area of Debridement (cm) - Length 0.4 0.3 0.1 -Area of Debridement (cm) - Width 0.5 0.5 0.1 -Total Square (Area) (cm) 0.20 0.15 0.01 -Tunneling No No No -Undermining/Tunneling No No No -Circular Undermining No No No -Wound/Ulcer Outcome Not Healed Not Healed Not Healed -Ulcer Cleansing Rinsed/ Rinsed/ Rinsed/ Irrigated with Irrigated with Irrigated with Saline Saline Saline -Foul Odor after Cleansing No No No -Bioengineered Tissue No No No -Bleeding Controlled with Pressure Pressure Pressure -Treatment Response Procedure Procedure Procedure Tolerated Well Tolerated Well Tolerated Well -Debridement - Subq, 1st 20sq cm No No No Pain Scale: 0-10 Numeric Is Patient Pain Free? Yes Yes Yes 04/16/22 04/23/22 11:36 11:56 Wound Center Nurse 2 #9 Left Lower Leg Medial -Time 10:42 10:40 -Correct Patient Yes Yes -Correct Side, Site, Position Yes Yes -Correct Procedure Yes Yes -Procedure Performed Yes Yes -Type of Procedure Debridement Debridement -Clinical Debridement Subcutaneous Subcutaneous -Tissue Removed Subcutaneous Subcutaneous -Post Debridement (cm) - Length 0.6 1.8 -Post Debridement (cm) - Width 0.7 0.9 -Post Debridement (cm) - Depth 0.2 0.1 -Total Square (Post) (cm) 0.42 1.62 -Area of Debridement (cm) - Length 0.6 1.8 -Area of Debridement (cm) - Width 0.7 0.9 -Total Square (Area) (cm) 0.42 1.62 -Tunneling No No -Undermining/Tunneling No No -Circular Undermining No No -Wound/Ulcer Outcome Not Healed Not Healed -Ulcer Cleansing Rinsed/ Rinsed/ Irrigated with Irrigated with Saline Saline -Foul Odor after Cleansing No No -Bioengineered Tissue Yes Yes -Type of Bioengineered Tissue Epifix 18mm Epifix 18mm Disc Disc -Expiration Date 12/24/26 12/24/26 -Product Lot Number [id number] -Percent Used 100 100 -Bleeding Controlled with Pressure Pressure -Treatment Response Procedure Procedure Tolerated Well Tolerated Well -Debridement - Subq, 1st 20sq cm No No -Apply Skin Sub - 1st 25 sq cm - Legs 1 1 -Apply Skin Sub - 1st 25 sq cm - Feet -Epifix (per sq cm) -Epifix 18mm Disc 3 3 #2 Left Gr Toe -Time 10:42 10:40 -Correct Patient Yes Yes -Correct Side, Site, Position Yes Yes -Correct Procedure Yes Yes -Procedure Performed Yes Yes -Type of Procedure Debridement Debridement -Clinical Debridement Subcutaneous Subcutaneous -Tissue Removed Subcutaneous Subcutaneous -Post Debridement (cm) - Length 0.2 0.1 -Post Debridement (cm) - Width 0.2 0.1 -Post Debridement (cm) - Depth 0.1 0.1 -Total Square (Post) (cm) 0.04 0.01 -Area of Debridement (cm) - Length 0.2 0.1 -Area of Debridement (cm) - Width 0.2 0.1 -Total Square (Area) (cm) 0.04 0.01 -Tunneling No No -Undermining/Tunneling No No -Circular Undermining No No -Wound/Ulcer Outcome Not Healed Not Healed -Ulcer Cleansing Rinsed/ Rinsed/ Irrigated with Irrigated with Saline Saline -Foul Odor after Cleansing No No -Bioengineered Tissue No No -Bleeding Controlled with Pressure Pressure -Treatment Response Procedure Procedure Tolerated Well Tolerated Well -Debridement - Subq, 1st 20sq cm No No Pain Scale: 0-10 Numeric Is Patient Pain Free? Yes Yes WC - Nurse 3 - General Ulcer D/C NN Start: 03/26/22 10:27 Freq: Status: Active Protocol: Activity Type Activity Date Activity User E-sign Co-sign Detail Recorded Client Recorded Date Recorded By Document 03/26/22 11:26 MI [id number] 03/26/22 11:27 MI Document 04/02/22 10:52 AK [id number] 04/02/22 10:53 AK Document 04/02/22 11:07 KR [id number] 04/02/22 11:08 KR Document 04/09/22 11:41 KR [id number] 04/09/22 11:41 KR Document 04/16/22 11:47 AK [id number] 04/16/22 11:51 AK 03/26/22 04/02/22 04/02/22 11:26 10:52 11:07 Wound Care Nurse 3 #9 Left Lower Leg Medial -Ulcer Cleansing Rinsed/ Irrigated with Saline -Primary Dressing Covered/Secured with Dry Gauze, Dry Gauze & Dry Gauze, Secured with Roll Gauze, Secured with Tape Secured with Tape Tape #2 Left Gr Toe -Primary Dressing Covered/Secured with Dry Gauze, Dry Gauze & Dry Gauze, Secured with Roll Gauze, Secured with Tape Secured with Tape Tape bilateral -Tubular Bandage -Size of Tubigrip Used -Size D ($) -Other own tubi Right -Other PT OWN TUBIGRIP Left -Other PT OWN TUBIGRIP Vital Signs Temperature (97.8 F-99.1 F) Temperature Source Pulse Rate (60-100) Pulse Location Blood Pressure (90/60-120/80) Blood Pressure Mean (mm Hg) Source Pain Scale: 0-10 Numeric Is Patient Pain Free? Yes No Yes WC - Visit Discharge Discharge Condition Stable Stable Ambulatory Status Ambulatory Ambulatory,Cane Transportation Private Auto Private Auto Accompanied by caregiver friend Medication Reconcilliation completed & Yes provided to patient/care provider Clinical Summary of Care Provided Yes 04/09/22 04/16/22 11:41 11:47 Wound Care Nurse 3 #9 Left Lower Leg Medial -Ulcer Cleansing Rinsed/ Irrigated with Saline -Primary Dressing Covered/Secured with Dry Gauze, Secured with Tape #2 Left Gr Toe -Primary Dressing Covered/Secured with Dry Gauze, Secured with Tape bilateral -Tubular Bandage Single Layer -Size of Tubigrip Used Size D -Size D ($) 1 -Other Right -Other Left -Other Vital Signs Temperature (97.8 F-99.1 F) 97.2 F L Temperature Source Temporal Pulse Rate (60-100) 85 Pulse Location Monitor Blood Pressure (90/60-120/80) 149/76 H Blood Pressure Mean (mm Hg) 100 Source Monitor Pain Scale: 0-10 Numeric Is Patient Pain Free? Yes Yes WC - Visit Discharge Discharge Condition Stable Ambulatory Status Ambulatory,Cane Transportation Private Auto Accompanied by Medication Reconcilliation completed & provided to patient/care provider Clinical Summary of Care Provided Assessment/Plan Assessment/Plan (1) Non-pressure chronic ulcer of left calf with fat layer exposed: CODE(S): L97.222 - Non-pressure chronic ulcer of left calf with fat layer exposed (2) Non-pressure 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: CODE(S): L97.522 - Non-pressure 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 (3) Varicose veins of left lower extremity with ulcer of calf: CODE(S): I83.022 - Varicose veins of left lower extremity with ulcer of calf (4) Chronic venous insufficiency: PLAN: Plan Patient seen and evaluated. I discussed her case today. Left lower extremity ulceration secondary to eschar being removed by article of clothing.? Ulcerative site measures 1.8 cm x 0.9 cm x 0.2 cm, post-debridment.? No localized signs of infection.? Ulceration underwent sharp debridement as noted in the clinical panel above.? Epi fix graft #8 applied to ulcerative site and dressed with Adaptic touch and Steri-Strips.? She was instructed to change outer dressings as needed and to not get the site wet.? This ulceration is responding well to the epi fix and decreasing in size versus previous visit. 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 I debrided the left hallux medial IPJ hyperkeratotic tissue. Ulceration site demonstrates no signs of infection.? Left hallux ulceration site is showing progression and decreasing in size overall and granulating in well with continued evidence of new skin formation across the wound bed, but still has some callus buildup about the site. This wound is nearing closure, but continued pressure reduction is essential.?She continues to offload the first metatarsophalangeal joint and hallux with an offloading pad to the plantar first metatarsal head and about the hallux. Hallux ulceration site was dressed with hydrogel offloading pad to the first metatarsophalangeal joint and about the wound site on the Hallux.? She will continue offloading of the hallux ulceration site with felt pads & surgical shoe. She and her risk management intern are aware of our discussion pertaining to possible surgical intervention to remove a portion of bone at the interphalangeal joint of her hallux for pressure reduction and ultimately healing of the ulcerative site.?She states that she would like to undergo surgical removal of this bone fragment to aid in her wound healing.? Radiographs of the left foot demonstrates marginal osteophyte formation medially of the IPJ consistent with moderate arthritic changes of the interphalangeal joint. This marginal osteophyte is creating additional pressure on the hallux wound.? She will present to office for surgical discussion in April to remove prominent bone from the plantar medial hallux. Patient to continue to elevate lower extremities in addition to wearing her Tubigrip compression stockings bilateral to aid in edema control.?I discussed with her that she is to continue to elevate her feet at times of rest. Patient voices understanding of this. The following work up and care recommendations were made: Dressing: Hydrogel left hallux, DSD, cotton, Coban and an offloading pad to the first metatarsophalangeal joint and about the hallux. Epi fix to left anterior lower extremity Wash: Soap and water to the hallux. Do not get leg wound wet Tissue growth optimization: Chuyita. Epi fix Offload: Offloading dressing of the first metatarsophalangeal joint and left hallux Vascular: Vascular status intact with palpable pedal pulses. She had venous studies performed confirming reflux of the left great saphenous vein with no deep venous thrombosis bilaterally. Edema: Elevation of the left lower extremity and right lower extremity control to control edema.?Patient instructed to wear double Tubigrip stockings Infection: No localized signs of infection Pain: May take [id number] Tylenol, safe oral anti-inflammatory use discussed. Host factors: Chronic venous insufficiency ? I answered all the patient's questions.? To return to the wound healing center in 1 week or call sooner if the patient has any questions or concerns. Note: [employer] speech recognition auto design detailer software was used to create portions of this document. Sound-alike and misspelled words, as well as other auto design detailer errors may be contained in the documentation.
== END 2022-04-24 23:59 | disposition home or self-care (01) ==
LOC: WC 10:15
PROVIDERS: PCP Family Medicine; Referring Provider Student in an Organized Health Care Education/Training Program; Visit Provider Student in an Organized Health Care Education/Training Program
DX: I83.022 Varicose veins of left lower extremity with ulcer of calf (principal); L97.522 Non-pressure 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; L97.222 Non-pressure chronic ulcer of left calf with fat layer exposed; M13.872 Other specified arthritis, left ankle and foot; M20.5X2 Other deformities of toe(s) (acquired), left foot
CPT/HCPCS: 15271; 15275; Q4186

== ENCOUNTER 2022-05-14 11:15 | Outpatient (RCR) | payer MEDICARE, OTHER, SELFPAY ==
[2022-04-25 01:14] VITALS: BP 153/64; PULSE 81; RESP 18; TEMP 36.1; BMI 25.7
[2022-04-30 10:28] VITALS: BP 151/73; PULSE 78; TEMP 36.4; BMI 25.7
--- NOTE | 2022-04-30 11:31 | PCM.WC.PN ---
History of Present Illness Date of Service: 04/30/22 Chief Complaint: Bilateral knee wound History of Wound: Ms. Castro is an 86-year-old who is currently being seen for below knee ulcers however I was asked to see due to nonhealing bilateral knee wound. Said to have been sustained about 2 weeks ago when she fell on her knees. Initially had apply Chuyita to the area however, worsening was noted this week. She states that there has been a lot of rubbing underneath her clothing and so dressing has not stayed on adequately. She feels well. Denies chills, fever or feeling of unwell. 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 She has been applying offloading padding subfirst metatarsophalangeal joint and about the hallux.? She is changing the outer dressings to the left lower extremity as needed. Patient denies any constitutional symptoms. Patient has no further complaints. Objective Data Objective Data Vital Signs: Vital Signs Temp Pulse Resp BP 97.5 F L 78 18 151/73 H 04/30/22 10:28 04/30/22 10:28 04/25/22 01:14 04/30/22 10:28 Weight: 70.307 kg Body Mass Index (BMI) 25.7 Physical Exam Const alert, oriented x3 and no apparent distress General Appearance: cooperative HEENT normocephalic Eyes General Eye: normal appearance of both eyes Neck General: normal visual inspection Lymph Lymphatic: no lymphadenopathy noted and no lymphedema noted Resp normal respiratory effort Cardio regular rate and regular rhythm Extremity normal capillary refill, no joint enlargement, no calf tenderness and no pedal edema Extremity Narrative: Right Lower Extremity: foot and digits Positive for ROM (Decreased range of motion at the first metatarsophalangeal joint secondary to end-stage hallux limitus/rigidus) Left Lower Extremity: foot and digits Positive for ROM (Decreased range of motion at the first metatarsophalangeal joint secondary to end-stage hallux limitus/rigidus) Skin no rashes or lesions noted, skin turgor normal and no jaundice General Skin Exam: venous stasis and dermatitis Wound Narrative: Left lower extremity: Skin intact with brawny discoloration and hemosiderin deposition secondary to venous insufficiency/stasis.? There is an ulceration left anterior medial lower extremity measuring 1.8 cm x 0.9 cm x 0.1 cm. No signs of infection. Left hallux sub-IPJ ulceration demonstrates healthy granular base with surrounding hyperkeratotic tissue. No signs of infection. Debridement Note Debridement Note Wound debrided: Left anterior lower extremity Laterality: Left Wound Grade/Stage: Russell stage I Type of Debridement: Excisional debridement Anesthesia Used: 5% Lidocaine Gel Depth: Down to and including healthy tissue and in the subcutaneous layer Percentage of wound debrided: 100 Instrument Used: 3mm curette Tissue Removed: Fibrous, devitalized subcutaneous, biofilm, slough Severity: Fat Layer Exposed Amount of bleeding with debridement: Mild Bleeding Controlled with: Compression and gauze Patient tolerated procedure: Patient tolerated procedure well Post-Debridement Measurements and Additional Note: Post-Debridement Measurements/Treatment BRAN - Nurse 1 - General Ulcer Assessment Start: 04/30/22 10:28 Freq: Status: Active Protocol: ALEX Activity Type Activity Date Activity User E-sign Co-sign Detail Recorded Client Recorded Date Recorded By Document 04/30/22 10:28 TORSTEN [id number] 04/30/22 10:30 KR 04/30/22 10:28 - Today's Visit Information Type of service Follow-up Visit (Physician/OPERATIONS [employer]EARCH [employer] MANAGER ) Arrival Mode Ambulatory Patient Identification Verified (Name & Yes ) Height and Weight Body Mass Index (BMI) 25.7 BMI Classification Overweight Vital Signs Temperature (97.8 F-99.1 F) 97.5 F L Temperature Source Temporal Pulse Rate (60-100) 78 Pulse Location Monitor Blood Pressure (90/60-120/80) 151/73 H Blood Pressure Mean (mm Hg) 99 Source Monitor Position Semi-Fowlers Blood Pressure Location Left Arm History Since Last Visit- (Skip if this is Patient's initial visit) Have you changed medications since your No last visit? Any new allergies or adverse reactions No Had a fall/change in ADL's that may No increase risk of falls Signs or symptoms of abuse and/or No neglect since last visit Have you been in the hospital since your No last visit? Has dressing in place as prescribed Yes Has offloadiing in place as prescribed N/A Experienced any changes in pain level or No management Left Footwear Regular Shoe Right Footwear Regular Shoe Pain Scale: 0-10 Numeric Is Patient Pain Free? Yes WC - Nurse 1 - General Ulcer Measurement Start: 04/30/22 10:28 Freq: Status: Active Protocol: Activity Type Activity Date Activity User E-sign Co-sign Detail Recorded Client Recorded Date Recorded By Document 04/30/22 10:28 TORSTEN [id number] 04/30/22 10:30 TORSTEN 04/30/22 10:28 Wound Center Nurse 1 #9 Left Lower Leg Medial -Current Size (cm) - Length 2 -Current Size (cm) - Width 1 -Current Size (cm) - Depth 0.3 -Total Square Cm 2 -Exudate Amt Small -Exudate Type Serosanguineous -Wound Margin Distinct, Outline Attached -Granulation Amt Medium (34-66%) -Granulation Quality [place] -Necrosis Amt Small (1-33%) -Necrotic Tissue Type Adherent Slough -Texture (Vangie-wound Skin Appearance) Assessed, Scarring -Moisture (Vangie-wound Skin Appearance) No Abnormality, Assessed -Color (Vangie-wound Skin Appearance) No Abnormality, Assessed -Temperature (Vangie-wound Skin No Abnormality Appearance) (Pt Warm) -Tenderness on Palpation (Vangie-wound No Skin Appearance) -Ulcer Cleansing Soap and Water -Foul Odor after Cleansing No -Anesthetic Used 5% Lidocaine Gel #2 Left Gr Toe -Current Size (cm) - Length 0.2 -Current Size (cm) - Width 0.2 -Current Size (cm) - Depth 0.1 -Total Square Cm 0.04 -Exudate Amt Small -Exudate Type Serosanguineous -Wound Margin Distinct, Outline Attached -Granulation Amt Medium (34-66%) -Granulation Quality [place] -Necrosis Amt Small (1-33%) -Necrotic Tissue Type Adherent Slough -Texture (Vangie-wound Skin Appearance) Assessed, Scarring -Moisture (Vangie-wound Skin Appearance) No Abnormality, Assessed -Color (Vangie-wound Skin Appearance) No Abnormality, Assessed -Temperature (Vangie-wound Skin No Abnormality Appearance) (Pt Warm) -Tenderness on Palpation (Vangie-wound No Skin Appearance) -Ulcer Cleansing Rinsed/ Irrigated with Saline -Foul Odor after Cleansing No -Anesthetic Used 5% Lidocaine Gel Additional Wound Wound debrided: Left hallux IPJ Laterality: Left Wound Grade/Stage: Russell stage I Type of Debridement: Selective debridement Anesthesia Used: 5% Lidocaine Gel Depth: Down to and including healthy tissue and in the subcutaneous layer Percentage of wound debrided: 100 Instrument Used: - (313 blade) Tissue Removed: Fibrous, devitalized subcutaneous, biofilm, slough Severity: Fat Layer Exposed Amount of bleeding with debridement: Mild Bleeding Controlled with: Compression and gauze Patient tolerated procedure: Patient tolerated procedure well Assessment/Plan Assessment/Plan (1) Non-pressure chronic ulcer of left calf with fat layer exposed: CODE(S): L97.222 - Non-pressure chronic ulcer of left calf with fat layer exposed (2) Non-pressure 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: CODE(S): L97.522 - Non-pressure 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 (3) Varicose veins of left lower extremity with ulcer of calf: CODE(S): I83.022 - Varicose veins of left lower extremity with ulcer of calf (4) Chronic venous insufficiency: PLAN: Plan Patient seen and evaluated. I discussed her case today. Left lower extremity ulceration secondary to eschar being removed by article of clothing.? Ulcerative site measures 1.8 cm x 1.0 cm x 0.2 cm, post-debridment.? No localized signs of infection.? Ulceration underwent sharp debridement as noted in the clinical panel above.? Epi fix graft #9 applied to ulcerative site and dressed with Adaptic touch and Steri-Strips.? She was instructed to change outer dressings as needed and to not get the site wet.? This ulceration is responding well to the epi fix. 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 I debrided the left hallux medial IPJ hyperkeratotic tissue. Ulceration site demonstrates no signs of infection.? Left hallux ulceration site is showing progression and decreasing in size overall and granulating in well with continued evidence of new skin formation across the wound bed, but still has some callus buildup about the site. This wound is nearing closure, but continued pressure reduction is essential.?She continues to offload the first metatarsophalangeal joint and hallux with an offloading pad to the plantar first metatarsal head and about the hallux. Hallux ulceration site was dressed with hydrogel offloading pad to the first metatarsophalangeal joint and about the wound site on the Hallux.? She will continue offloading of the hallux ulceration site with felt pads & surgical shoe. She and her train station agent are aware of our discussion pertaining to possible surgical intervention to remove a portion of bone at the interphalangeal joint of her hallux for pressure reduction and ultimately healing of the ulcerative site.?She states that she would like to undergo surgical removal of this bone fragment to aid in her wound healing.? Radiographs of the left foot demonstrates marginal osteophyte formation medially of the IPJ consistent with moderate arthritic changes of the interphalangeal joint. This marginal osteophyte is creating additional pressure on the hallux wound.? She will present to office for surgical discussion in April to remove prominent bone from the plantar medial hallux and debride left lower extremity ulceration with application of Axiofill. Patient to continue to elevate lower extremities in addition to wearing her Tubigrip compression stockings bilateral to aid in edema control.?I discussed with her that she is to continue to elevate her feet at times of rest. Patient voices understanding of this. The following work up and care recommendations were made: Dressing: Hydrogel left hallux, DSD, cotton, Coban and an offloading pad to the first metatarsophalangeal joint and about the hallux.? Epi fix to left anterior lower extremity Wash: Soap and water to the hallux.? Do not get leg wound wet Tissue growth optimization: Chuyita.? Epi fix Offload: Offloading dressing of the first metatarsophalangeal joint and left hallux Vascular: Vascular status intact with palpable pedal pulses. She had venous studies performed confirming reflux of the left great saphenous vein with no deep venous thrombosis bilaterally. Edema: Elevation of the left lower extremity and right lower extremity control to control edema.?Patient instructed to wear double Tubigrip stockings Infection: No localized signs of infection Pain: May take [id number] Tylenol, safe oral anti-inflammatory use discussed. Host factors: Chronic venous insufficiency ? I answered all the patient's questions.? To return to the wound healing center in 1 week or call sooner if the patient has any questions or concerns. Note: [employer] speech recognition incubator operator software was used to create portions of this document. Sound-alike and misspelled words, as well as other incubator operator errors may be contained in the documentation.
[2022-05-07 10:32] VITALS: BP 150/69; PULSE 67; TEMP 36.4; BMI 25.7
--- NOTE | 2022-05-07 10:50 | PCM.WC.PN ---
History of Present Illness Date of Service: 05/07/22 Chief Complaint: Bilateral knee wound History of Wound: Ms. Castro is an 86-year-old who is currently being seen for below knee ulcers however I was asked to see due to nonhealing bilateral knee wound. Said to have been sustained about 2 weeks ago when she fell on her knees. Initially had apply Ch[place]ita to the area however, worsening was noted this week. She states that there has been a lot of rubbing underneath her clothing and so dressing has not stayed on adequately. She feels well. Denies chills, fever or feeling of unwell. 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 Patient denies any constitutional symptoms. Patient has no further complaints. Objective Data Objective Data Vital Signs: Vital Signs Temp Pulse Resp BP 97.5 F L 78 18 151/73 H 04/30/22 10:28 04/30/22 10:28 04/25/22 01:14 04/30/22 10:28 Weight: 70.307 kg Body Mass Index (BMI) 25.7 Physical Exam Const alert, oriented x3 and no apparent distress General Appearance: cooperative HEENT normocephalic Eyes General Eye: normal appearance of both eyes Neck General: normal visual inspection Lymph Lymphatic: no lymphadenopathy noted and no lymphedema noted Resp normal respiratory effort Cardio regular rate and regular rhythm Extremity normal capillary refill, no joint enlargement, no calf tenderness and no pedal edema Extremity Narrative: Right Lower Extremity: foot and digits Positive for ROM (Decreased range of motion at the first metatarsophalangeal joint secondary to end-stage hallux limitus/rigidus) Left Lower Extremity: foot and digits Positive for ROM (Decreased range of motion at the first metatarsophalangeal joint secondary to end-stage hallux limitus/rigidus) Skin no rashes or lesions noted, skin turgor normal and no jaundice General Skin Exam: venous stasis and dermatitis Wound Narrative: Left lower extremity: Skin intact with brawny discoloration and hemosiderin deposition secondary to venous insufficiency/stasis.? There is an ulceration left anterior medial lower extremity with granular wound base. No signs of infection. Surrounding skin is friable. Left hallux sub-IPJ ulceration demonstrates healthy granular base with surrounding hyperkeratotic tissue. No signs of infection. Debridement Note Debridement Note Wound debrided: Left anterior lower extremity Laterality: Left Wound Grade/Stage: Russell stage I Type of Debridement: Excisional debridement Anesthesia Used: 5% Lidocaine Gel Depth: Down to and including healthy tissue and in the subcutaneous layer Percentage of wound debrided: 100 Instrument Used: 3mm curette Tissue Removed: Fibrous, devitalized subcutaneous, biofilm, slough Severity: Fat Layer Exposed Amount of bleeding with debridement: Mild Bleeding Controlled with: Compression and gauze Patient tolerated procedure: Patient tolerated procedure well Post-Debridement Measurements and Additional Note: Post-Debridement Measurements/Treatment WC - Nurse 1 - General Ulcer Assessment Start: 04/30/22 10:28 Freq: Status: Active Protocol: ALEX Activity Type Activity Date Activity User E-sign Co-sign Detail Recorded Client Recorded Date Recorded By Document 04/30/22 10:28 TORSTEN [id number] 04/30/22 10:30 TORSTEN 04/30/22 10:28 - Today's Visit Information Type of service 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 Any new allergies or adverse reactions No Had a fall/change in ADL's that may No increase risk of falls Signs or symptoms of abuse and/or No neglect since last visit Have you been in the hospital since your No last visit? Has dressing in place as prescribed Yes Has offloadiing in place as prescribed N/A Experienced any changes in pain level or No management Left Footwear Regular Shoe Right Footwear Regular Shoe Pain Scale: 0-10 Numeric Is Patient Pain Free? Yes WC - Nurse 1 - General Ulcer Measurement Start: 04/30/22 10:28 Freq: Status: Active Protocol: Activity Type Activity Date Activity User E-sign Co-sign Detail Recorded Client Recorded Date Recorded By Document 04/30/22 10:28 TORSTEN [id number] 04/30/22 10:30 TORSTEN 04/30/22 10:28 Wound Center Nurse 1 #9 Left Lower Leg Medial -Current Size (cm) - Length 2 -Current Size (cm) - Width 1 -Current Size (cm) - Depth 0.3 -Total Square Cm 2 -Exudate Amt Small -Exudate Type Serosanguineous -Wound Margin Distinct, Outline Attached -Granulation Amt Medium (34-66%) -Granulation Quality [place]un -Necrosis Amt Small (1-33%) -Necrotic Tissue Type Adherent Slough -Texture (Vangie-wound Skin Appearance) Assessed, Scarring -Moisture (Vangie-wound Skin Appearance) No Abnormality, Assessed -Color (Vangie-wound Skin Appearance) No Abnormality, Assessed -Temperature (Vangie-wound Skin No Abnormality Appearance) (Pt Warm) -Tenderness on Palpation (Vangie-wound No Skin Appearance) -Ulcer Cleansing Soap and Water -Foul Odor after Cleansing No -Anesthetic Used 5% Lidocaine Gel #2 Left Gr Toe -Current Size (cm) - Length 0.2 -Current Size (cm) - Width 0.2 -Current Size (cm) - Depth 0.1 -Total Square Cm 0.04 -Exudate Amt Small -Exudate Type Serosanguineous -Wound Margin Distinct, Outline Attached -Granulation Amt Medium (34-66%) -Granulation Quality Doerun -Necrosis Amt Small (1-33%) -Necrotic Tissue Type Adherent Slough -Texture (Vangie-wound Skin Appearance) Assessed, Scarring -Moisture (Vangie-wound Skin Appearance) No Abnormality, Assessed -Color (Vangie-wound Skin Appearance) No Abnormality, Assessed -Temperature (Vangie-wound Skin No Abnormality Appearance) (Pt Warm) -Tenderness on Palpation (Vangie-wound No Skin Appearance) -Ulcer Cleansing Rinsed/ Irrigated with Saline -Foul Odor after Cleansing No -Anesthetic Used 5% Lidocaine Gel WC - Nurse 2 - General Ulcer CM Notes Start: 04/30/22 10:28 Freq: Status: Active Protocol: Activity Type Activity Date Activity User E-sign Co-sign Detail Recorded Client Recorded Date Recorded By Document 04/30/22 12:42 DARIO [id number] 04/30/22 12:44 PL 04/30/22 12:42 Wound Center Nurse 2 #9 Left Lower Leg Medial -Time 11:11 -Correct Patient Yes -Correct Side, Site, Position Yes -Correct Procedure Yes -Procedure Performed Yes -Type of Procedure Debridement -Clinical Debridement Subcutaneous -Tissue Removed Subcutaneous -Post Debridement (cm) - Length 2.0 -Post Debridement (cm) - Width 1.0 -Post Debridement (cm) - Depth 0.2 -Total Square (Post) (cm) 2.00 -Area of Debridement (cm) - Length 2.0 -Area of Debridement (cm) - Width 1.0 -Total Square (Area) (cm) 2.00 -Tunneling No -Undermining/Tunneling No -Circular Undermining No -Wound/Ulcer Outcome Not Healed -Ulcer Cleansing Rinsed/ Irrigated with Saline -Foul Odor after Cleansing No -Bioengineered Tissue Yes -Type of Bioengineered Tissue Epifix 18mm Disc -Expiration Date 01/23/27 -Product Lot Number [id number] -Percent Used 100 -Bleeding Controlled with Pressure -Treatment Response Procedure Tolerated Well -Debridement - Subq, 1st 20sq cm No -Apply Skin Sub - 1st 25 sq cm - Legs 1 -Epifix 18mm Disc 3 #2 Left Gr Toe -Time 11:11 -Correct Patient Yes -Correct Side, Site, Position Yes -Correct Procedure Yes -Procedure Performed Yes -Type of Procedure Debridement -Clinical Debridement Subcutaneous -Tissue Removed Subcutaneous -Post Debridement (cm) - Length 0.2 -Post Debridement (cm) - Width 0.2 -Post Debridement (cm) - Depth 0.1 -Total Square (Post) (cm) 0.04 -Area of Debridement (cm) - Length 0.2 -Area of Debridement (cm) - Width 0.2 -Total Square (Area) (cm) 0.04 -Tunneling No -Undermining/Tunneling No -Circular Undermining No -Wound/Ulcer Outcome Not Healed -Ulcer Cleansing Rinsed/ Irrigated with Saline -Foul Odor after Cleansing No -Bioengineered Tissue No -Bleeding Controlled with Pressure -Treatment Response Procedure Tolerated Well -Debridement - Subq, 1st 20sq cm No Pain Scale: 0-10 Numeric Is Patient Pain Free? Yes - Nurse 3 - General Ulcer D/C NN Start: 04/30/22 10:28 Freq: Status: Active Protocol: Activity Type Activity Date Activity User E-sign Co-sign Detail Recorded Client Recorded Date Recorded By Document 04/30/22 11:40 TORSTEN [id number] 04/30/22 11:40 TORSTEN 04/30/22 11:40 Wound Care Nurse 3 #9 Left Lower Leg Medial -Ulcer Cleansing Rinsed/ Irrigated with Saline -Primary Dressing Covered/Secured with Dry Gauze, Secured with Tape #2 Left Gr Toe -Primary Dressing Covered/Secured with Dry Gauze, Secured with Tape Pain Scale: 0-10 Numeric Is Patient Pain Free? Yes - Visit Discharge Discharge Condition Stable Ambulatory Status Ambulatory,Cane Transportation Private Auto Assessment/Plan Assessment/Plan (1) Non-pressure chronic ulcer of left calf with fat layer exposed: CODE(S): L97.222 - Non-pressure chronic ulcer of left calf with fat layer exposed (2) Non-pressure 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: CODE(S): L97.522 - Non-pressure 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 (3) Varicose veins of left lower extremity with ulcer of calf: CODE(S): I83.022 - Varicose veins of left lower extremity with ulcer of calf (4) Chronic venous insufficiency: PLAN: Plan Patient seen and evaluated. I discussed her case today. Left lower extremity ulceration secondary to eschar being removed by article of clothing.? Ulcerative site measures 2.3 cm x 1.4 cm x 0.2 cm, post-debridment.? No localized signs of infection.? Ulceration underwent sharp debridement as noted in the clinical panel above.? Epi fix graft #9 applied to ulcerative site last week. At this time we will hold epifix graft. We we will change to collagen powder with PHMB dressing. She will change dressings daily. She may wash site with soap and water Left plantar hallux wound secondary to hallux limitus/end-stage arthritis of the first metatarsophalangeal joint. I debrided the left hallux medial IPJ hyperkeratotic tissue. Ulceration site demonstrates no signs of infection.? Left hallux ulceration site is showing progression and decreasing in size overall and granulating in well with continued evidence of new skin formation across the wound bed, but still has some callus buildup about the site. This wound is nearing closure, but continued pressure reduction is essential.?She continues to offload the first metatarsophalangeal joint and hallux with an offloading pad to the plantar first metatarsal head and about the hallux. Hallux ulceration site was dressed with hydrogel offloading pad to the first metatarsophalangeal joint and about the wound site on the Hallux.? She will continue offloading of the hallux ulceration site with felt pads & surgical shoe. She and her workforce investment act career manager are aware of our discussion pertaining to surgical intervention to remove a portion of bone at the interphalangeal joint of her hallux for pressure reduction and ultimately healing of the ulcerative site.?She states that she would like to undergo surgical removal of this bone fragment to aid in her wound healing.? Radiographs of the left foot demonstrates marginal osteophyte formation medially of the IPJ consistent with moderate arthritic changes of the interphalangeal joint. This marginal osteophyte is creating additional pressure on the hallux wound.? She will present to office for surgical discussion in April to remove prominent bone from the plantar medial hallux and debride left lower extremity ulceration with application of Axiofill. Patient to continue to elevate lower extremities in addition to wearing her Tubigrip compression stockings bilateral to aid in edema control.?I discussed with her that she is to continue to elevate her feet at times of rest. Patient voices understanding of this. The following work up and care recommendations were made: Dressing: Hydrogel left hallux, DSD, cotton, Coban and an offloading pad to the first metatarsophalangeal joint and about the hallux.? Collagen powser with PHMB to left anterior lower extremity Wash: Soap and water to the hallux. Tissue growth optimization: Collagen powder with PHMB dressing Offload: Offloading dressing of the first metatarsophalangeal joint and left hallux Vascular: Vascular status intact with palpable pedal pulses. She had venous studies performed confirming reflux of the left great saphenous vein with no deep venous thrombosis bilaterally. Edema: Elevation of the left lower extremity and right lower extremity control to control edema.?Patient instructed to wear double Tubigrip stockings Infection: No localized signs of infection Pain: May take [id number] Tylenol, safe oral anti-inflammatory use discussed. Host factors: Chronic venous insufficiency ? I answered all the patient's questions.? To return to the wound healing center in 1 week or call sooner if the patient has any questions or concerns. Note: [employer] speech recognition design director software was used to create portions of this document. Sound-alike and misspelled words, as well as other design director errors may be contained in the documentation.
--- NOTE | 2022-05-14 11:28 | PCM.WC.PN ---
History of Present Illness Date of Service: 05/14/22 Chief Complaint: Bilateral knee wound History of Wound: Ms. Castro is an 86-year-old who is currently being seen for below knee ulcers however I was asked to see due to nonhealing bilateral knee wound. Said to have been sustained about 2 weeks ago when she fell on her knees. Initially had apply Chuyita to the area however, worsening was noted this week. She states that there has been a lot of rubbing underneath her clothing and so dressing has not stayed on adequately. She feels well. Denies chills, fever or feeling of unwell. 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 She is applying the collagen powder and dressings as instructed to the left anterior lower extremity. Patient denies any constitutional symptoms. Patient has no further complaints. Objective Data Objective Data Vital Signs: Vital Signs Temp Pulse Resp BP O2 Del Method 97.5 F L 67 18 150/69 H Room Air 05/07/22 10:32 05/07/22 10:32 04/25/22 01:14 05/07/22 10:32 05/07/22 10:32 Oxygen Delivery Method Room Air Weight: 70.307 kg Body Mass Index (BMI) 25.7 Physical Exam Const alert, oriented x3 and no apparent distress General Appearance: cooperative HEENT normocephalic Eyes General Eye: normal appearance of both eyes Neck General: normal visual inspection Lymph Lymphatic: no lymphadenopathy noted and no lymphedema noted Resp normal respiratory effort Cardio regular rate and regular rhythm Extremity normal capillary refill, no joint enlargement, no calf tenderness and no pedal edema Extremity Narrative: Right Lower Extremity: foot and digits Positive for ROM (Decreased range of motion at the first metatarsophalangeal joint secondary to end-stage hallux limitus/rigidus) Left Lower Extremity: foot and digits Positive for ROM (Decreased range of motion at the first metatarsophalangeal joint secondary to end-stage hallux limitus/rigidus) Skin no rashes or lesions noted, skin turgor normal and no jaundice General Skin Exam: venous stasis and dermatitis Wound Narrative: Left lower extremity: Skin intact with brawny discoloration and hemosiderin deposition secondary to venous insufficiency/stasis.? There is an ulceration left anterior medial lower extremity with granular wound base. No signs of infection. Surrounding skin is friable. Left hallux sub-IPJ ulceration demonstrates healthy granular base with surrounding hyperkeratotic tissue. No signs of infection. Debridement Note Debridement Note Wound debrided: Left anterior lower extremity Laterality: Left Wound Grade/Stage: Russell stage I Type of Debridement: Excisional debridement Anesthesia Used: 5% Lidocaine Gel Depth: Down to and including healthy tissue and in the subcutaneous layer Percentage of wound debrided: 100 Instrument Used: 3mm curette Tissue Removed: Fibrous, devitalized subcutaneous, biofilm, slough Severity: Fat Layer Exposed Amount of bleeding with debridement: Mild Bleeding Controlled with: Compression and gauze Patient tolerated procedure: Patient tolerated procedure well Post-Debridement Measurements and Additional Note: Post-Debridement Measurements/Treatment WC - Nurse 1 - General Ulcer Assessment Start: 04/30/22 10:28 Freq: Status: Active Protocol: ALEX Activity Type Activity Date Activity User E-sign Co-sign Detail Recorded Client Recorded Date Recorded By Document 04/30/22 10:28 [id number] 04/30/22 10:30 KR Document 05/07/22 10:32 UT [id number] 05/07/22 10:50 MT 04/30/22 05/07/22 10:28 10:32 - Today's Visit Information Type of service Follow-up Visit Follow-up Visit (Physician/MANAGER OF CLINICAL (Physician/MANAGER OF CLINICAL ) ) Arrival Mode Ambulatory Ambulatory Patient Identification Verified (Name & Yes ) Safety Precautions Fall Prevention Height and Weight Body Mass Index (BMI) 25.7 25.7 BMI Classification Overweight Overweight Vital Signs Temperature (97.8 F-99.1 F) 97.5 F L 97.5 F L Temperature Source Temporal Temporal Pulse Rate (60-100) 78 67 Pulse Location Monitor Monitor Respiratory rate source Observation Oxygen Delivery Method Room Air Blood Pressure (90/60-120/80) 151/73 H 150/69 H Blood Pressure Mean (mm Hg) 99 96 Source Monitor Monitor Position Semi-Fowlers Sitting Blood Pressure Location Left Arm Left Arm History Since Last Visit- (Skip if this is Patient's initial visit) Have you changed medications since your No last visit? Any new allergies or adverse reactions No Had a fall/change in ADL's that may No increase risk of falls Signs or symptoms of abuse and/or No neglect since last visit Have you been in the hospital since your No No last visit? Has dressing in place as prescribed Yes Yes Has compression in place as prescribed Yes Has offloadiing in place as prescribed N/A Yes Experienced any changes in pain level or No Yes management Left Footwear Regular Shoe Regular Shoe Right Footwear Regular Shoe Regular Shoe Pain Scale: 0-10 Numeric Is Patient Pain Free? Yes Yes WC - Nurse 1 - General Ulcer Measurement Start: 04/30/22 10:28 Freq: Status: Active Protocol: Activity Type Activity Date Activity User E-sign Co-sign Detail Recorded Client Recorded Date Recorded By Document 04/30/22 10:28 KR [id number] 04/30/22 10:30 KR Document 05/07/22 10:32 UT [id number] 05/07/22 10:50 UT 04/30/22 05/07/22 10:28 10:32 Wound Center Nurse 1 #2 Left Gr Toe -Current Size (cm) - Length 0.2 0.9 -Current Size (cm) - Width 0.2 1.4 -Current Size (cm) - Depth 0.1 0.1 -Total Square Cm 0.04 1.26 -Exudate Amt Small Small -Exudate Type Serosanguineous Serosanguineous -Wound Margin Distinct, Flat & Intact Outline Attached -Granulation Amt Medium (34-66%) Small (1-33%) -Granulation Quality P[place]ck Pale,P[place] Neck -Necrosis Amt Small (1-33%) Large (67-100%) -Necrotic Tissue Type Adherent Slough -Texture (Vangie-wound Skin Appearance) Assessed, Assessed Scarring -Moisture (Vangie-wound Skin Appearance) No Abnormality, Assessed Assessed -Color (Vangie-wound Skin Appearance) No Abnormality, Assessed Assessed -Temperature (Vangie-wound Skin No Abnormality No Abnormality Appearance) (Pt Warm) (Pt Warm) -Tenderness on Palpation (Vangie-wound No No Skin Appearance) -Ulcer Cleansing Rinsed/ Wound Cleanser Irrigated with Saline -Foul Odor after Cleansing No No -Anesthetic Used 5% Lidocaine 5% Lidocaine Gel Gel #9 Left Lower Leg Medial -Current Size (cm) - Length 2 2.1 -Current Size (cm) - Width 1 1.5 -Current Size (cm) - Depth 0.3 0.4 -Total Square Cm 2 3.15 -Undermining/Tunneling Yes -Undermining/Tunneling Starts (O'clock 12 ) -Undermining/Tunneling Ends (O'clock) 6 -Exudate Amt Small Small -Exudate Type Serosanguineous Serosanguineous -Wound Margin Distinct, Thickened & Outline Rolled Under Attached -Granulation Amt Medium (34-66%) Medium (34-66%) -Granulation Quality P[place]ck Pale,[place] Neck -Necrosis Amt Small (1-33%) Medium (34-66%) -Necrotic Tissue Type Adherent Slough Adherent Slough -Texture (Vangie-wound Skin Appearance) Assessed, Assessed Scarring -Moisture (Vangie-wound Skin Appearance) No Abnormality, Assessed Assessed -Color (Vangie-wound Skin Appearance) No Abnormality, Assessed Assessed -Temperature (Vangie-wound Skin No Abnormality No Abnormality Appearance) (Pt Warm) (Pt Warm) -Tenderness on Palpation (Vangie-wound No No Skin Appearance) -Ulcer Cleansing Soap and Water Wound Cleanser -Foul Odor after Cleansing No No -Anesthetic Used 5% Lidocaine 5% Lidocaine Gel Gel Lower Limb Edema Present NA WC - Nurse 2 - General Ulcer CM Notes Start: 04/30/22 10:28 Freq: Status: Active Protocol: Activity Type Activity Date Activity User E-sign Co-sign Detail Recorded Client Recorded Date Recorded By Document 04/30/22 12:42 PL [id number] 04/30/22 12:44 PL Document 05/07/22 12:43 PL [id number] 05/07/22 12:45 PL 04/30/22 05/07/22 12:42 12:43 Wound Center Nurse 2 #2 Left Gr Toe -Time 11:11 -Correct Patient Yes -Correct Side, Site, Position Yes -Correct Procedure Yes -Procedure Performed Yes No -Type of Procedure Debridement -Clinical Debridement Subcutaneous -Tissue Removed Subcutaneous -Post Debridement (cm) - Length 0.2 -Post Debridement (cm) - Width 0.2 -Post Debridement (cm) - Depth 0.1 -Total Square (Post) (cm) 0.04 -Area of Debridement (cm) - Length 0.2 -Area of Debridement (cm) - Width 0.2 -Total Square (Area) (cm) 0.04 -Tunneling No -Undermining/Tunneling No -Circular Undermining No -Wound/Ulcer Outcome Not Healed Healed- Epithelialized -Ulcer Cleansing Rinsed/ Irrigated with Saline -Foul Odor after Cleansing No -Bioengineered Tissue No -Bleeding Controlled with Pressure -Treatment Response Procedure Tolerated Well -Debridement - Subq, 1st 20sq cm No #9 Left Lower Leg Medial -Time 11:11 11:05 -Correct Patient Yes Yes -Correct Side, Site, Position Yes Yes -Correct Procedure Yes Yes -Procedure Performed Yes Yes -Type of Procedure Debridement Debridement -Clinical Debridement Subcutaneous Subcutaneous -Tissue Removed Subcutaneous Subcutaneous -Post Debridement (cm) - Length 2.0 2.3 -Post Debridement (cm) - Width 1.0 1.4 -Post Debridement (cm) - Depth 0.2 0.1 -Total Square (Post) (cm) 2.00 3.22 -Area of Debridement (cm) - Length 2.0 2.3 -Area of Debridement (cm) - Width 1.0 1.4 -Total Square (Area) (cm) 2.00 3.22 -Tunneling No No -Undermining/Tunneling No No -Circular Undermining No No -Wound/Ulcer Outcome Not Healed Not Healed -Ulcer Cleansing Rinsed/ Rinsed/ Irrigated with Irrigated with Saline Saline -Foul Odor after Cleansing No No -Bioengineered Tissue Yes No -Type of Bioengineered Tissue Epifix 18mm Disc -Expiration Date 01/23/27 -Product Lot Number [id number] -Percent Used 100 -Bleeding Controlled with Pressure Pressure -Treatment Response Procedure Procedure Tolerated Well Tolerated Well -Debridement - Subq, 1st 20sq cm No Yes -Apply Skin Sub - 1st 25 sq cm - Legs 1 -Epifix 18mm Disc 3 Pain Scale: 0-10 Numeric Is Patient Pain Free? Yes Yes WC - Nurse 3 - General Ulcer D/C NN Start: 04/30/22 10:28 Freq: Status: Active Protocol: Activity Type Activity Date Activity User E-sign Co-sign Detail Recorded Client Recorded Date Recorded By Document 04/30/22 11:40 KR [id number] 04/30/22 11:40 KR Document 05/07/22 12:14 KR [id number] 05/07/22 12:16 KR 04/30/22 05/07/22 11:40 12:14 Wound Care Nurse 3 #2 Left Gr Toe -Ulcer Cleansing Rinsed/ Irrigated with Saline -Foul Odor after Cleansing No -Negative Pressure Wound Therapy N/A -Other Dressing PMB collagen -Primary Dressing Covered/Secured with Dry Gauze, Dry Gauze & Secured with Roll Gauze, Tape Secured with Tape #9 Left Lower Leg Medial -Ulcer Cleansing Rinsed/ Rinsed/ Irrigated with Irrigated with Saline Saline -Foul Odor after Cleansing No -Negative Pressure Wound Therapy N/A -Other Dressing PMB collagen -Primary Dressing Covered/Secured with Dry Gauze, Dry Gauze & Secured with Roll Gauze, Tape Secured with Tape Pain Scale: 0-10 Numeric Is Patient Pain Free? Yes Yes WC - Visit Discharge Discharge Condition Stable Stable Ambulatory Status Ambulatory,Cane Ambulatory Transportation Private Auto Private Auto Medication Reconcilliation completed & Yes provided to patient/care provider Clinical Summary of Care Provided Yes Assessment/Plan Assessment/Plan (1) Non-pressure chronic ulcer of left calf with fat layer exposed: CODE(S): L97.222 - Non-pressure chronic ulcer of left calf with fat layer exposed (2) Non-pressure 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: CODE(S): L97.522 - Non-pressure 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 (3) Varicose veins of left lower extremity with ulcer of calf: CODE(S): I83.022 - Varicose veins of left lower extremity with ulcer of calf (4) Chronic venous insufficiency: PLAN: Plan Patient seen and evaluated. I discussed her case today. Left lower extremity ulceration secondary to eschar being removed by article of clothing.? Ulcerative site measures 2.5 cm x 2.0 cm x 0.2 cm, post-debridment.? No localized signs of infection.? Ulceration underwent sharp debridement as noted in the clinical panel above.? Epi fix graft #9 applied to ulcerative site 04/30/22. At this time we will continue to hold epifix graft. Collagen powder with PHMB dressing applied to wound site, this is aiding her granulation of the wound. She will change dressings daily. She may wash site with soap and water Left plantar hallux wound secondary to hallux limitus/end-stage arthritis of the first metatarsophalangeal joint. I debrided the left hallux medial IPJ hyperkeratotic tissue. Ulceration site demonstrates no signs of infection.? Left hallux ulceration site is showing progression and decreasing in size overall and granulating in well with continued evidence of new skin formation across the wound bed, but still has some callus buildup about the site. This wound is nearing closure, but continued pressure reduction is essential.?She continues to offload the first metatarsophalangeal joint and hallux with an offloading pad to the plantar first metatarsal head and about the hallux. Hallux ulceration site was dressed with hydrogel offloading pad to the first metatarsophalangeal joint and about the wound site on the Hallux.? She will continue offloading of the hallux ulceration site with felt pads & surgical shoe. She and her salesforce developer are aware of our discussion pertaining to surgical intervention to remove a portion of bone at the interphalangeal joint of her hallux for pressure reduction and ultimately healing of the ulcerative site.?She states that she would like to undergo surgical removal of this bone fragment to aid in her wound healing.? Radiographs of the left foot demonstrates marginal osteophyte formation medially of the IPJ consistent with moderate arthritic changes of the interphalangeal joint. This marginal osteophyte is creating additional pressure on the hallux wound.? She will present to office for surgical discussion in May to remove prominent bone from the plantar medial hallux and debride left lower extremity ulceration with application of Axiofill. Patient to continue to elevate lower extremities in addition to wearing her Tubigrip compression stockings bilateral to aid in edema control.?I discussed with her that she is to continue to elevate her feet at times of rest. Patient voices understanding of this. The following work up and care recommendations were made: Dressing: Hydrogel left hallux, DSD, cotton, Coban and an offloading pad to the first metatarsophalangeal joint and about the hallux.? Collagen powser with PHMB to left anterior lower extremity Wash: Soap and water to the hallux. Tissue growth optimization: Collagen powder with PHMB dressing Offload: Offloading dressing of the first metatarsophalangeal joint and left hallux Vascular: Vascular status intact with palpable pedal pulses. She had venous studies performed confirming reflux of the left great saphenous vein with no deep venous thrombosis bilaterally. Edema: Elevation of the left lower extremity and right lower extremity control to control edema.?Patient instructed to wear double Tubigrip stockings Infection: No localized signs of infection Pain: May take [id number] Tylenol, safe oral anti-inflammatory use discussed. Host factors: Chronic venous insufficiency ? I answered all the patient's questions.? To return to the wound healing center in 2 weeks or call sooner if the patient has any questions or concerns. Note: [employer] speech recognition power originator software was used to create portions of this document. Sound-alike and misspelled words, as well as other power originator errors may be contained in the documentation.
[2022-05-14 11:42] VITALS: BP 147/70; PULSE 78; TEMP 36.4; BMI 25.7
== END 2022-05-25 23:59 | disposition home or self-care (01) ==
LOC: WC 11:15
PROVIDERS: PCP Family Medicine; Referring Provider Student in an Organized Health Care Education/Training Program; Visit Provider Student in an Organized Health Care Education/Training Program
DX: L97.222 Non-pressure chronic ulcer of left calf with fat layer exposed (principal); L97.522 Non-pressure 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; I83.022 Varicose veins of left lower extremity with ulcer of calf
CPT/HCPCS: 11042; 15271; Q4186

== ENCOUNTER → 2022-05-27 | Outpatient (CLI) | payer MEDICARE, OTHER, SELFPAY ==
[2022-05-27 16:24] LABS: Bacteria 0 SEEN /hpf (None Seen); Mucous, Urine 0 SEEN /hpf (<or=2+); Red Blood Cells-Urine 0 SEEN /hpf (0-5); Squamous Epithelial Cells - UA 0 SEEN /hpf (5-10); White Blood Cells 0 SEEN /hpf (0-5)
--- NOTE | 2022-05-27 16:33 | RAD_ITS ---
INDICATION: PRE-OP EXAMINATION/TECHNIQUE: X-RAY - XR Chest 2 Views COMPARISON: None. FINDINGS: LINES/DEVICES: Transvenous pacemaker. LUNGS: No consolidation, edema or effusion. No pneumothorax. MEDIASTINUM AND CARDIOVASCULAR STRUCTURES: Cardiac silhouette not enlarged. Central airways and mediastinal contour are unremarkable. BONES AND SOFT TISSUES: No acute abnormality. Kyphoplasty changes in the upper lumbar spine. RAD/Chest PA and Lateral IMPRESSION: No radiographic evidence of acute cardiopulmonary disease. Electronically Signed: Gumaro Yap MD at 17:09 EDT ,
[2022-05-27 18:00] LABS: Absolute Lymphocyte Count 2.99 X10^3/uL (0.83-4.51); Absolute Neutrophil Count 5.3 X10^3/uL (2.0-7.7); Basophil# 0.05 X10^3/uL; Basophil% 0.5 % (0-1); Eosinophil# 0.08 X10^3/uL; Eosinophils% 0.9 % (0-5); Hematocrit 40.6 % (37-47); Lymphocyte # 2.99 X10^3/ul (0.83-4.51); Lymphocyte % 32.7 % (19-41); Mean Corpuscular Hgb 33.2 pg (27.0-32.0); Mean Corpuscular Volume 103.6 fL (81-99); Monocyte# 0.69 X10^3/uL; Monocyte% 7.5 % (0-10); NRBC Flagged by Analyzer 0 % (0-5); Neutrophil # 5.31 X10^3/uL (2.7-7.7); Neutrophil % 58.1 % (47-70); Platelet Count 244 K/mm3 (150-450); Red Blood Count 3.92 M/mm3 (4.2-5.4); White Blood Count 9.2 K/mm3 (4.4-11.0)
[2022-05-27 18:18] LABS: AST(SGOT) 29 U/L (15-37); Alanine Aminotransfer ALT/SGPT 43 U/L (13-56); Albumin, Serum 3.7 g/dL (3.2-5.0); Alkaline Phosphatase 168 U/L (45-117); Anion Gap 7 (5-15); BUN 27 mg/dL (7-18); BUN/Creat Ratio 36.8 RATIO (10-20); Calcium,Total 9.5 mg/dL (8.5-10.1); Chloride 103 mmol/L (98-107); Creatinine, Serum 0.73 mg/dL (0.55-1.02); EST Glomerular Filtration Rate 80 mL/min (>60); Est Glom Filt Rate - Afr Amer 97 mL/min (>60); Globulin 3.7 g/dL (2.2-4.2); Glucose 91 mg/dL (74-106); Potassium 4.1 mmol/L (3.5-5.1); Protein, Total 7.4 g/dL (6.4-8.2); Sodium Level 138 mmol/L (136-145)
[2022-05-27 18:22] LABS: Color, Urine Yellow (Yellow); Glucose, Dipstick Normal (Normal); Ketone-Dipstick Negative (Negative); Leukocyte Esterase-Dipstick Negative /ul (Negative); Nitrite-Dipstick Negative (Negative); Occult Blood-Urine Negative /ul (Negative); Protein-Dipstick Negative (Negative); Urine Bilirubin Dipstick Negative (Negative); Urine Clarity Clear (Clear); Urine Urobilinogen Normal (Normal)
== END | disposition home or self-care (01) ==
LOC: MTLAB 16:21
PROVIDERS: PCP Family Medicine; Referring Provider Family Medicine; Visit Provider Family Medicine
DX: Z01.818 Encounter for other preprocedural examination (principal)
CPT/HCPCS: 36415; 71046; 80053; 81001; 85025

== ENCOUNTER 2022-06-04 10:15 | Outpatient (RCR) | payer MEDICARE, OTHER, SELFPAY ==
[2022-05-26 00:26] VITALS: BP 147/70; PULSE 78; RESP 18; TEMP 36.4; BMI 25.7
[2022-05-28 10:08] VITALS: BP 138/69; PULSE 80; TEMP 36.1; BMI 25.7
--- NOTE | 2022-05-28 12:06 | PN.PCM_ITS ---
History of Present Illness Date of Service: 05/28/22 Chief Complaint: Bilateral knee wound History of Wound: Ms. Castro is an 86-year-old who is currently being seen for below knee ulcers however I was asked to see due to nonhealing bilateral knee wound. Said to have been sustained about 2 weeks ago when she fell on her knees. Initially had apply Ch[place]ita to the area however, worsening was noted this week. She states that there has been a lot of rubbing underneath her clothing and so dressing has not stayed on adequately. She feels well. Denies chills, fever or feeling of unwell. 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 She is applying the collagen powder and dressings as instructed to the left anterior lower extremity. Her straddle truck operator feels that her lower extremity ulceration is making little progress due to fragile skin. Patient denies any constitutional symptoms. Patient has no further complaints. Objective Data Objective Data Vital Signs: Vital Signs Temp Pulse Resp BP 97.0 F L 80 18 138/69 H 05/28/22 10:08 05/28/22 10:08 05/26/22 00:26 05/28/22 10:08 Weight: 70.307 kg Body Mass Index (BMI) 25.7 Physical Exam Const alert, oriented x3 and no apparent distress General Appearance: cooperative HEENT normocephalic Eyes General Eye: normal appearance of both eyes Neck General: normal visual inspection Lymph Lymphatic: no lymphadenopathy noted and no lymphedema noted Resp normal respiratory effort Cardio regular rate and regular rhythm Extremity normal capillary refill, no joint enlargement, no calf tenderness and no pedal edema Extremity Narrative: Right Lower Extremity: foot and digits Positive for ROM (Decreased range of motion at the first metatarsophalangeal joint secondary to end-stage hallux limitus/rigidus) Left Lower Extremity: foot and digits Positive for ROM (Decreased range of motion at the first metatarsophalangeal joint secondary to end-stage hallux limitus/rigidus) Skin no rashes or lesions noted, skin turgor normal and no jaundice Wound Narrative: Left lower extremity: Skin intact with brawny discoloration and hemosiderin deposition secondary to venous insufficiency/stasis.? There is an ulceration left anterior medial lower extremity with granular wound base. No signs of infection. Surrounding skin is friable. Left hallux sub-IPJ ulceration demonstrates healthy granular base with surrounding hyperkeratotic tissue. No signs of infection. Neuro moves all extremities Debridement Note Debridement Note Wound debrided: Left anterior lower extremity Laterality: Left Wound Grade/Stage: Russell stage I Type of Debridement: Excisional debridement Anesthesia Used: 5% Lidocaine Gel Depth: Down to and including healthy tissue and in the subcutaneous layer Percentage of wound debrided: 100 Instrument Used: 3mm curette Tissue Removed: Fibrous, devitalized subcutaneous, biofilm, slough Severity: Fat Layer Exposed Amount of bleeding with debridement: Mild Bleeding Controlled with: Compression and gauze Patient tolerated procedure: Patient tolerated procedure well Post-Debridement Measurements and Additional Note: Post-Debridement Measurements/Treatment - Nurse 1 - General Ulcer Assessment Start: 05/28/22 10:07 Freq: Status: Active Protocol: ALEX Activity Type Activity Date Activity User E-sign Co-sign Detail Recorded Client Recorded Date Recorded By Document 05/28/22 10:08 [id number] 05/28/22 10:13 TORSTEN 05/28/22 10:08 - Today's Visit Information Type of service Follow-up Visit (Physician/VETERINARY INSPECTOR ) Arrival Mode Ambulatory Patient Identification Verified (Name & Yes ) Height and Weight Body Mass Index (BMI) 25.7 BMI Classification Overweight Vital Signs Temperature (97.8 F-99.1 F) 97.0 F L Temperature Source Temporal Pulse Rate (60-100) 80 Pulse Location Monitor Blood Pressure (90/60-120/80) 138/69 H Blood Pressure Mean (mm Hg) 92 Source Monitor Position Semi-Fowlers Blood Pressure Location Right Arm History Since Last Visit- (Skip if this is Patient's initial visit) Have you changed medications since your No last visit? Any new allergies or adverse reactions No Had a fall/change in ADL's that may No increase risk of falls Signs or symptoms of abuse and/or No neglect since last visit Have you been in the hospital since your No last visit? Has dressing in place as prescribed Yes Has compression in place as prescribed N/A Has offloadiing in place as prescribed N/A Experienced any changes in pain level or No management Left Footwear Regular Shoe Right Footwear Regular Shoe Pain Scale: 0-10 Numeric Is Patient Pain Free? Yes - Nurse 1 - General Ulcer Measurement Start: 05/28/22 10:07 Freq: Status: Active Protocol: Activity Type Activity Date Activity User E-sign Co-sign Detail Recorded Client Recorded Date Recorded By Document 05/28/22 10:08 TORSTEN [id number] 05/28/22 10:13 TORSTEN 05/28/22 10:08 Wound Center Nurse 1 #9 Left Lower Leg Medial -Current Size (cm) - Length 4.5 -Current Size (cm) - Width 2.6 -Current Size (cm) - Depth 0.2 -Total Square Cm 11.70 -Exudate Amt Large -Exudate Type Serosanguineous -Wound Margin Distinct, Outline Attached -Granulation Amt Medium (34-66%) -Granulation Quality Red -Necrosis Amt Small (1-33%) -Necrotic Tissue Type Eschar -Texture (Vangie-wound Skin Appearance) Assessed, Scarring -Moisture (Vangie-wound Skin Appearance) No Abnormality, Assessed -Color (Vangie-wound Skin Appearance) No Abnormality, Assessed -Temperature (Vangie-wound Skin No Abnormality Appearance) (Pt Warm) -Tenderness on Palpation (Vangie-wound No Skin Appearance) -Ulcer Cleansing Soap and Water -Foul Odor after Cleansing No -Anesthetic Used 5% Lidocaine Gel - Nurse 3 - General Ulcer D/C NN Start: 05/28/22 10:07 Freq: Status: Active Protocol: Activity Type Activity Date Activity User E-sign Co-sign Detail Recorded Client Recorded Date Recorded By Document 05/28/22 10:52 TORSTEN [id number] 05/28/22 10:53 TORSTEN 05/28/22 10:52 Wound Care Nurse 3 -Ulcer Cleansing Rinsed/ Irrigated with Saline -Other Dressing collogen powder -Primary Dressing Covered/Secured with Dry Gauze & Roll Gauze, Secured with Tape Left -Tubular Bandage Double Layer -Size of Tubigrip Used Size D -Size D ($) 2 Pain Scale: 0-10 Numeric Is Patient Pain Free? Yes - Visit Discharge Discharge Condition Stable Ambulatory Status Ambulatory,Cane Transportation Private Auto Accompanied by friend Assessment/Plan Assessment/Plan (1) Non-pressure chronic ulcer of left calf with fat layer exposed: CODE(S): L97.222 - Non-pressure chronic ulcer of left calf with fat layer exposed (2) Non-pressure 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: CODE(S): L97.522 - Non-pressure 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 (3) Varicose veins of left lower extremity with ulcer of calf: CODE(S): I83.022 - Varicose veins of left lower extremity with ulcer of calf (4) Chronic venous insufficiency: PLAN: Plan Patient seen and evaluated. I discussed her case today. Left lower extremity ulceration secondary to eschar being removed by article of clothing.? Ulcerative site measures 3.5 cm x 2.6 cm x 0.2 cm, post-debridment.? No localized signs of infection.? Ulceration underwent sharp debridement as noted in the clinical panel above.? Epi fix graft #9 applied to ulcerative site 04/30/22. At this time we will continue to hold epifix graft. Collagen powder with PHMB dressing applied to wound site, this is aiding her granulation of the wound.? She will change dressings daily.? She may wash site with soap and water Left plantar hallux wound secondary to hallux limitus/end-stage arthritis of the first metatarsophalangeal joint. I debrided the left hallux medial IPJ hyperkeratotic tissue. Ulceration site demonstrates no signs of infection.? Left hallux ulceration site is showing progression and decreasing in size overall and granulating in well with continued evidence of new skin formation across the wound bed, but still has some callus buildup about the site. This wound is nearing closure, but continued pressure reduction is essential.?She continues to offload the first metatarsophalangeal joint and hallux with an offloading pad to the plantar first metatarsal head and about the hallux. Hallux ulceration site was dressed with hydrogel offloading pad to the first metatarsophalangeal joint and about the wound site on the Hallux.? She will continue offloading of the hallux ulceration site with felt pads & surgical shoe. Patient to continue to elevate lower extremities in addition to wearing her Tubigrip compression stockings bilateral to aid in edema control.?I discussed with her that she is to continue to elevate her feet at times of rest. Patient voices understanding of this. She and her straddle truck operator are aware of our discussion pertaining to surgical intervention to remove a portion of bone at the interphalangeal joint of her hallux for pressure reduction and ultimately healing of the ulcerative site.?She states that she would like to undergo surgical removal of this bone fragment to aid in her wound healing.? Radiographs of the left foot demonstrates marginal osteophyte formation medially of the IPJ consistent with moderate arthritic leah nges of the interphalangeal joint. This marginal osteophyte is creating additional pressure on the hallux wound.? Surgical discussion was had today with patient and straddle truck operator. I discussed the procedure in detail as well as all alternative procedures in detail. I discussed the benefits, risks, and complications involved with the procedure include but are not limited to: Pain, continued pain, infection, neuritis, numbness, delayed healing/nonhealing, need for additional surgery, swelling, scar tissue, poor cosmetic result, recurrence, allergic reaction, addiction to pain medication, CRPS, postoperative arthritis, overcorrection or under correction of deformity, floating toe, deviated digit, floppy digit, difficulty wearing shoe gear, difficulty walking, loss of function, loss of limb, and loss of life. Patient understands these risks and was able to voice them back. All questions were answered to patient's satisfaction and straddle truck operator satisfaction today. No guarantees were made. Veena ent voices understanding of this. Surgical consent was signed freely by patient. Patient has been cleared for surgery by her primary care physician. Patient will be scheduled to undergo Removeal of prominent bone from the plantar medial hallux and debride left lower extremity ulceration with application of Axiofill at [facility]. The following work up and care recommendations were made: Dressing: Hydrogel left hallux, DSD, cotton, Coban and an offloading pad to the first metatarsophalangeal joint and about the hallux.? Collagen powder with PHMB to left anterior lower extremity Wash: Soap and water to the hallux. Tissue growth optimization: Collagen powder with PHMB dressing Offload: Offloading dressing of the first metatarsophalangeal joint and left hallux Vascular: Vascular status intact with palpable pedal pulses. She had venous studies performed confirming reflux of the left great saphenous vein with no deep venous thrombosis bilaterally. Edema: Elevation of the left lower extremity and right lower extremity control to control edema.?Patient instructed to wear double Tubigrip stockings Infection: No localized signs of infection Pain: May take [id number] Tylenol, safe oral anti-inflammatory use discussed. Host factors: Chronic venous insufficiency ? I answered all the patient's questions.? To return to the wound healing center in 1 week or call sooner if the patient has any questions or concerns. Note: [employer] speech recognition heading and priming tool setter software was used to create portions of this document. Sound-alike and misspelled words, as well as other heading and priming tool setter errors may be contained in the documentation.
[2022-06-04 10:37] VITALS: BP 151/84; PULSE 75; TEMP 36.4; BMI 25.7
--- NOTE | 2022-06-04 12:06 | PCM.WC.PN ---
History of Present Illness Date of Service: 06/04/22 Chief Complaint: Bilateral knee wound History of Wound: Ms. Castro is an 86-year-old who is currently being seen for below knee ulcers however I was asked to see due to nonhealing bilateral knee wound. Said to have been sustained about 2 weeks ago when she fell on her knees. Initially had apply Ch[place]ita to the area however, worsening was noted this week. She states that there has been a lot of rubbing underneath her clothing and so dressing has not stayed on adequately. She feels well. Denies chills, fever or feeling of unwell. 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 She is applying the collagen powder and dressings as instructed to the left anterior lower extremity.?Patient denies any constitutional symptoms. Patient has no further complaints. Objective Data Objective Data Vital Signs: Vital Signs Temp Pulse Resp BP 97.5 F L 75 18 151/84 H 06/04/22 10:37 06/04/22 10:37 05/26/22 00:26 06/04/22 10:37 Weight: 70.307 kg Body Mass Index (BMI) 25.7 Physical Exam Const alert, oriented x3 and no apparent distress General Appearance: cooperative HEENT normocephalic Eyes General Eye: normal appearance of both eyes Neck General: normal visual inspection Lymph Lymphatic: no lymphadenopathy noted and no lymphedema noted Resp normal respiratory effort Cardio regular rate and regular rhythm Extremity normal capillary refill, no joint enlargement, no calf tenderness and no pedal edema Extremity Narrative: Right Lower Extremity: foot and digits Positive for ROM (Decreased range of motion at the first metatarsophalangeal joint secondary to end-stage hallux limitus/rigidus) Left Lower Extremity: foot and digits Positive for ROM (Decreased range of motion at the first metatarsophalangeal joint secondary to end-stage hallux limitus/rigidus) Skin no rashes or lesions noted, skin turgor normal and no jaundice Wound Narrative: Left lower extremity: Skin intact with brawny discoloration and hemosiderin deposition secondary to venous insufficiency/stasis.? There is an ulceration left anterior medial lower extremity with granular wound base. No signs of infection. Surrounding skin is friable. Left hallux sub-IPJ ulceration demonstrates healthy granular base with surrounding hyperkeratotic tissue. No signs of infection. Neuro moves all extremities Debridement Note Debridement Note Wound debrided: Left anterior lower extremity Laterality: Left Wound Grade/Stage: Russell stage I Type of Debridement: Excisional debridement Anesthesia Used: 5% Lidocaine Gel Depth: Down to and including healthy tissue and in the subcutaneous layer Percentage of wound debrided: 100 Instrument Used: 5mm curette Tissue Removed: Fibrous, devitalized subcutaneous, biofilm, slough Severity: Fat Layer Exposed Amount of bleeding with debridement: Mild Bleeding Controlled with: Compression and gauze Patient tolerated procedure: Patient tolerated procedure well Post-Debridement Measurements and Additional Note: Post-Debridement Measurements/Treatment - Nurse 1 - General Ulcer Assessment Start: 05/28/22 10:07 Freq: Status: Active Protocol: ALEX Activity Type Activity Date Activity User E-sign Co-sign Detail Recorded Client Recorded Date Recorded By Document 05/28/22 10:08 TORSTEN [id number] 05/28/22 10:13 KR Document 06/04/22 10:37 TORSTEN [id number] 06/04/22 10:38 KR 05/28/22 06/04/22 10:08 10:37 - Today's Visit Information Type of service Follow-up Visit Follow-up Visit (Physician/MANUFACTURING FINANCE MANAGER (Physician/MANUFACTURING FINANCE MANAGER ) ) Arrival Mode Ambulatory Ambulatory,Cane Patient Identification Verified (Name & Yes Yes ) Height and Weight Body Mass Index (BMI) 25.7 25.7 BMI Classification Overweight Overweight Vital Signs Temperature (97.8 F-99.1 F) 97.0 F L 97.5 F L Temperature Source Temporal Temporal Pulse Rate (60-100) 80 75 Pulse Location Monitor Monitor Blood Pressure (90/60-120/80) 138/69 H 151/84 H Blood Pressure Mean (mm Hg) 92 106 Source Monitor Monitor Position Semi-Fowlers Sitting Blood Pressure Location Right Arm Left Arm History Since Last Visit- (Skip if this is Patient's initial visit) Have you changed medications since your No No last visit? Any new allergies or adverse reactions No No Had a fall/change in ADL's that may No No increase risk of falls Signs or symptoms of abuse and/or No No neglect since last visit Have you been in the hospital since your No No last visit? Has dressing in place as prescribed Yes Yes Has compression in place as prescribed N/A N/A Has offloadiing in place as prescribed N/A N/A Experienced any changes in pain level or No No management Left Footwear Regular Shoe Regular Shoe Right Footwear Regular Shoe Regular Shoe Pain Scale: 0-10 Numeric Is Patient Pain Free? Yes Yes WC - Nurse 1 - General Ulcer Measurement Start: 05/28/22 10:07 Freq: Status: Active Protocol: Activity Type Activity Date Activity User E-sign Co-sign Detail Recorded Client Recorded Date Recorded By Document 05/28/22 10:08 TORSTEN [id number] 05/28/22 10:13 KR Document 06/04/22 10:37 TORSTEN [id number] 06/04/22 10:38 KR 05/28/22 06/04/22 10:08 10:37 Wound Center Nurse 1 #9 Left Lower Leg Medial -Current Size (cm) - Length 4.5 4 -Current Size (cm) - Width 2.6 3.5 -Current Size (cm) - Depth 0.2 0.1 -Total Square Cm 11.70 14.0 -Exudate Amt Large Small -Exudate Type Serosanguineous Serosanguineous -Wound Margin Distinct, Distinct, Outline Outline Attached Attached -Granulation Amt Medium (34-66%) Large (67-100%) -Granulation Quality [place] -Necrosis Amt Small (1-33%) Small (1-33%) -Necrotic Tissue Type Eschar Adherent Slough -Texture (Vangie-wound Skin Appearance) Assessed, Assessed, Scarring Scarring -Moisture (Avngie-wound Skin Appearance) No Abnormality, No Abnormality, Assessed Assessed -Color (Vangie-wound Skin Appearance) No Abnormality, No Abnormality, Assessed Assessed -Temperature (Vangie-wound Skin No Abnormality No Abnormality Appearance) (Pt Warm) (Pt Warm) -Tenderness on Palpation (Vangie-wound No No Skin Appearance) -Ulcer Cleansing Soap and Water Soap and Water -Foul Odor after Cleansing No No -Anesthetic Used 5% Lidocaine 5% Lidocaine Gel Gel Left Calf (cm) 39 Left Ankle (cm) 23.5 WC - Nurse 2 - General Ulcer CM Notes Start: 05/28/22 10:07 Freq: Status: Active Protocol: Activity Type Activity Date Activity User E-sign Co-sign Detail Recorded Client Recorded Date Recorded By Document 05/28/22 12:35 PL [id number] 05/28/22 12:36 PL 05/28/22 12:35 Wound Center Nurse 2 #9 Left Lower Leg Medial -Time 10:30 -Correct Patient Yes -Correct Side, Site, Position Yes -Correct Procedure Yes -Procedure Performed Yes -Type of Procedure Debridement -Clinical Debridement Subcutaneous -Tissue Removed Subcutaneous -Post Debridement (cm) - Length 3.5 -Post Debridement (cm) - Width 2.6 -Post Debridement (cm) - Depth 0.2 -Total Square (Post) (cm) 9.10 -Area of Debridement (cm) - Length 3.5 -Area of Debridement (cm) - Width 2.6 -Total Square (Area) (cm) 9.10 -Tunneling No -Undermining/Tunneling No -Circular Undermining No -Wound/Ulcer Outcome Not Healed -Ulcer Cleansing Rinsed/ Irrigated with Saline -Foul Odor after Cleansing No -Bioengineered Tissue No -Bleeding Controlled with Pressure -Treatment Response Procedure Tolerated Well -Debridement - Subq, 1st 20sq cm Yes Pain Scale: 0-10 Numeric Is Patient Pain Free? Yes - Nurse 3 - General Ulcer D/C NN Start: 05/28/22 10:07 Freq: Status: Active Protocol: Activity Type Activity Date Activity User E-sign Co-sign Detail Recorded Client Recorded Date Recorded By Document 05/28/22 10:52 KR [id number] 05/28/22 10:53 KR Document 06/04/22 11:23 KR [id number] 06/04/22 11:23 KR 05/28/22 06/04/22 10:52 11:23 Wound Care Nurse 3 #9 Left Lower Leg Medial -Ulcer Cleansing Rinsed/ Rinsed/ Irrigated with Irrigated with Saline Saline -Other Dressing collogen powder -Primary Dressing Covered/Secured with Dry Gauze & Dry Gauze,Dry Roll Gauze, Gauze & Roll Secured with Gauze,Secured Tape with Tape Left -Tubular Bandage Double Layer -Size of Tubigrip Used Size D -Size D ($) 2 Pain Scale: 0-10 Numeric Is Patient Pain Free? Yes Yes WC - Visit Discharge Discharge Condition Stable Stable Ambulatory Status Ambulatory,Cane Ambulatory,Cane Transportation Private Auto Private Auto Accompanied by friend AID Assessment/Plan Assessment/Plan (1) Non-pressure chronic ulcer of left calf with fat layer exposed: CODE(S): L97.222 - Non-pressure chronic ulcer of left calf with fat layer exposed (2) Non-pressure 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: CODE(S): L97.522 - Non-pressure 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 (3) Varicose veins of left lower extremity with ulcer of calf: CODE(S): I83.022 - Varicose veins of left lower extremity with ulcer of calf (4) Chronic venous insufficiency: PLAN: Plan Patient seen and evaluated. I discussed her case today. Left lower extremity ulceration secondary to eschar being removed by article of clothing.? Ulcerative site measures 4.3 cm x 3.5 cm x 0.2 cm, post-debridment.? No localized signs of infection.? Ulceration underwent sharp debridement as noted in the clinical panel above.? Epi fix graft #9 applied to ulcerative site 04/30/22. At this time we will continue to hold epifix graft. Collagen powder with PHMB dressing applied to wound site.? She will change dressings daily.? She may wash site with soap and water Left plantar hallux wound secondary to hallux limitus/end-stage arthritis of the first metatarsophalangeal joint. I debrided the left hallux medial IPJ hyperkeratotic tissue. Ulceration site demonstrates no signs of infection.? Left hallux ulceration site is showing progression and decreasing in size overall and granulating in well with continued evidence of new skin formation across the wound bed, but still has some callus buildup about the site. This wound is nearing closure, but continued pressure reduction is essential.?She continues to offload the first metatarsophalangeal joint and hallux with an offloading pad to the plantar first metatarsal head and about the hallux. Hallux ulceration site was dressed with hydrogel offloading pad to the first metatarsophalangeal joint and about the wound site on the Hallux.? She will continue offloading of the hallux ulceration site with felt pads & surgical shoe. Patient to continue to elevate lower extremities in addition to wearing her Tubigrip compression stockings bilateral to aid in edema control.?I discussed with her that she is to continue to elevate her feet at times of rest. Patient voices understanding of this. She and her canteen operator are aware of our discussion pertaining to surgical intervention to remove a portion of bone at the interphalangeal joint of her hallux for pressure reduction and ultimately healing of the ulcerative site.?Radiographs of the left foot demonstrates marginal osteophyte formation medially of the IPJ consistent with moderate arthritic changes of the interphalangeal joint. This marginal osteophyte is creating additional pressure on the hallux wound.? Surgical discussion was had 05/27/22 with patient and canteen operator. At that time I discussed the procedure in detail as well as all alternative procedures in detail. I discussed the benefits, risks, and complications involved with the procedure include but are not limited to: Pain, continued pain, infection, neuritis, numbness, delayed healing/nonhealing, need for additional surgery, swelling, scar tissue, poor cosmetic result, recurrence, allergic reaction, addiction to pain medication, CRPS, postoperative arthritis, overcorrection or under correction of deformity, floating toe, deviated digit, floppy digit, difficulty wearing shoe gear, difficulty walking, loss of function, loss of limb, and loss of life. Patient understands these risks and was able to voice them back. All questions were answered to patient's satisfaction and canteen operator satisfaction today. No guarantees were made. Patient voices understanding of this. Surgical consent was signed freely by patient. Patient has been cleared for surgery by her primary care physician. Patient is scheduled to undergo Removeal of prominent bone from the plantar medial hallux and debride left lower extremity ulceration with application of Axiofill at [facility] on 06/12/22. I discussed I will see her day of surgery and then she will return to wound center for follow up in 2 weeks for post-surgical care of the Left Hallux and local wound care to the Left Anterior lower extremity. The following work up and care recommendations were made: Dressing: Hydrogel left hallux, DSD, cotton, Coban and an offloading pad to the first metatarsophalangeal joint and about the hallux.? Collagen powder with PHMB to left anterior lower extremity Wash: Soap and water to the hallux. Tissue growth optimization: Collagen powder with PHMB dressing Offload: Offloading dressing of the first metatarsophalangeal joint and left hallux Vascular: Vascular status intact with palpable pedal pulses. She had venous studies performed confirming reflux of the left great saphenous vein with no deep venous thrombosis bilaterally. Edema: Elevation of the left lower extremity and right lower extremity control to control edema.?Patient instructed to wear double Tubigrip stockings Infection: No localized signs of infection Pain: May take [id number] Tylenol, safe oral anti-inflammatory use discussed. Host factors: Chronic venous insufficiency ? I answered all the patient's questions.? To return to the wound healing center in 3 weeks (06/25/22) or call sooner if the patient has any questions or concerns. Note: [email or web address] speech recognition spa receptionist software was used to create portions of this document. Sound-alike and misspelled words, as well as other spa receptionist errors may be contained in the documentation.
== END 2022-06-24 23:59 | disposition home or self-care (01) ==
LOC: WC 10:15
PROVIDERS: PCP Family Medicine; Referring Provider Student in an Organized Health Care Education/Training Program; Visit Provider Student in an Organized Health Care Education/Training Program
DX: I83.022 Varicose veins of left lower extremity with ulcer of calf (principal); L97.522 Non-pressure 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; L97.222 Non-pressure chronic ulcer of left calf with fat layer exposed
CPT/HCPCS: 11042

== ENCOUNTER 2022-06-12 12:05 | Day surgery (SDC) | payer MEDICARE, OTHER, SELFPAY ==
--- NOTE | 2022-06-12 | IMM_PTH ---
PATIENT: JUSTIN VALDOVINOS LOC: [facility] [place] U#:[id number] AGE/SX: 86/F ROOM: RE06/12/[address]: Dr. Carson Oneal DPM : 1935 BED: DIS: 06/12/2022 SPEC #: [id number] RECD: 06/16/22 15:15 STATUS: GUERO REQ #: [id number] DIMA: 06/12/22 00:[address]: Carson Oneal DEPT: IMMUNOHISTOCHEMISTRY RECD BY: Amy Monteiro ENTERED: 06/16/22 15:17 SP TYPE: IMMUNO OTHR DR: Dr. Carson Kennedy MD Tissues: Skin of leg, NOS Procedures: CK5-6 (add) KI-67 (add) MACRO (add) Vimentin (add) Pankeratin (initial) P40 (add) PHYSICIAN & INSTITUTION [place] [id number] SPECIMEN INFORMATION: Tissue Source: Left leg wound Clinical Info: Nonpressure ulceration left leg Specimen Number: [id number] CPT code: 78697, 67010 x5 METHODOLOGY: Deparaffinized sections of prefer/formalin-fixed tissue or PAP/DQ stained slides are incubated with monoclonal/polyclonal antibodies/oligonucleotide probes. Localization is made via biotin free immunoperoxidase method. Appropriate controls are performed and reacted as expected. Results on target cell population are indicated in the following table: RESULTS: ANTIBODY / CLONE RESULT AE1-3 (AE1/AE3/PCK26) positive Vimentin (V9) negative Macro (HAM-56) negative CK5-6 (D5 & 1684) positive P40 (BC28) positive Ki-67 (30-9) positive, low These tests were developed and their performance characteristics determined by [facility]. They may not have been cleared or approved by the U.S. Food and Drug Administration. The FDA has determined that such clearance or approval is not necessary. The above immunohistochemical/dualISH markers are ordered and reviewed by the Pathologist. INTERPRETATION: Left leg wound, biopsy: Consistent with invasive well differentiated squamous cell carcinoma. AM:jeremy 06/17/2022
--- NOTE | 2022-06-12 12:29 | PCM.DC ---
Discharge Instructions Diet Discharge Diet: No restrictions Activity Discharge Activity: May Shower (Patient instructed to cover site with cast bag and keep the dressings clean dry and intact to the left lower extremity) Weight Bearing Status: Partial weight bearing (Patient may be protected weightbearing to the heel with surgical shoe to the left foot) Keep extremity elevated above heart level: Left Leg (Elevate left lower extremity at all times of rest) Dressing / Incision Call your doctor if you observe: Fever of 101 or Higher, Chest pain, Calf discomfort and Uncontrolled pain Change Dressing in: do not change dressing Remove Dressing in: do not remove dressing (Do not remove dressing. Physician will change dressings at first postoperative visit) Cleanse incision/area with: Do not get Incision Wet and Keep Dressing Clean & Dry (Please keep dressings clean dry and intact to the left foot) Follow Up Care Please Follow Up With: Carson Oneal DPM When: In the wound care center in 2 weeks Test Results: Test results from this visit will be discussed in further detail at your follow-up appointment, if applicable. Discharge Plan Admission Attending Provider: Carson Oneal Primary Care Provider: Carson Kennedy Discharge Orders/Prescriptions Prescriptions: New tramadol-acetaminophen 37.5-325 mg tablet 1 tab PO Q6H PRN (Reason: pain) Qty: 28 0RF Rx Instructions: Take 1 tablet by mouth every 6hrs as needed for post-operative pain No Action calcium carbonate 500 MG tablet 250 mg PO BID simvastatin 20 MG tablet 20 mg PO QHS omeprazole 20 MG capsule 20 mg PO DAILY aspirin 81 MG tablet,chewable 81 mg PO DAILY@0800 magnesium 250 MG tablet 400 mg PO BID hydroxychloroquine 200 MG tablet 200 mg PO BIDCM Centrum Silver 1 EACH tablet 1 ea PO DAILY pramipexole 0.75 MG tablet 0.5 mg PO DAILY Probiotic 1 EACH capsule 1 ea PO DAILY pramipexole 1 mg Tablet 1 mg PO QHS oxycodone-acetaminophen [Percocet] 5-325 mg Tablet 1 tab PO Q4H PRN (Reason: Pain) methotrexate sodium [Methotrexate (Anti-Rheumatic)] 2.5 mg Tablet 17.5 mg PO QWEEK folic acid 1 mg Tablet 2 mg PO LUNCH atenolol 50 mg Tablet 50 mg PO LUNCH cholecalciferol (vitamin D3) [Vitamin D3] 50 mcg (2,000 unit) Capsule 50 mcg PO DAILY Trelegy Ellipta 200-62.5-25 mcg Blister With Device 1 inh INHALATION DAILY Referrals / Follow Up: Carson Kennedy MD [Primary Care Provider] - Disposition Disposition (needs filled in before D/C Order can be placed): Home, Self Care
[2022-06-12] MEDS: Lactated Ringers 1,000 ML 15 ML IV (12:48)
[2022-06-12 13:02] VITALS: BP 151/61; PULSE 81; RESP 16; TEMP 36.6; O2SAT 97; BMI 25.4
--- NOTE | 2022-06-12 13:25 | WND_PTH ---
PATIENT: JUSTIN VALDOVINOS LOC: [facility] [place] U#:[id number] AGE/SX: 86/F ROOM: RE06/12/[address]: Dr. Carson Oneal DPM : 1935 BED: DIS: 06/12/2022 SPEC #: [id number] RECD: 06/15/22 06:40 STATUS: GUERO REQ #: [id number] DIMA: 06/12/22 13:[address]: Carson Oneal DEPT: SURGICAL PATHOLOGY RECD BY: Melissa Russell ENTERED: 06/15/22 10:24 SP TYPE: Wound OTHR DR: Dr. Carson Kennedy MD Tissues: Leg, NOS Procedures: Special Stain Group I Surgery Specimen Level IV GMS Stain (control) HEADER OPERATION: Removal of prominent bone, hallux with debridement of ulcer PRE-OP DIAGNOSIS: Accessory bone left hallux, nonpressure ulceration left leg TISSUE SUBMITTED: Biopsy left leg wound MICROSCOPIC DIAGNOSIS Left leg wound, biopsy: Invasive well differentiated squamous cell carcinoma. See comment. AM:jeremy 06/16/2022 COMMENT The specimen is received in fragments. Complete excision of lesion is recommended. Clinical correlation is necessary. GMS stain with matched control was used in the evaluation of this case. Immunohistochemistry ([id number]) supports the above diagnosis. Case has been reviewed in consultation with Dr. Germain who concurs with the above diagnosis. IDC:AM MICROSCOPIC DESCRIPTION Slides are reviewed. GROSS DESCRIPTION Received in fixative is one container labeled with the patient's name and designated biopsy left leg wound. The specimen consists of four punch biopsies of velásquez-light brown skin each measuring 0.2 cm in diameter and 0.1 to 0.5 cm in length. The specimen is totally submitted in one cassette. / ANDREA:jeremy 06/15/2022 TC:0 CPT: 94527, 68360
[2022-06-12] MEDS: Bupivacaine 0.25% 30 ML Vial (13:43)
--- NOTE | 2022-06-12 13:45 | RAD_ITS ---
STUDY: X-RAY - LEFT FOOT CLINICAL: Female, 86 years old. Resection of IP joint. Removal of bone. TECHNIQUE: 6 intraoperative view(s) of the foot. COMPARISON: None. FINDINGS: The provided images demonstrate the great toe. There is no visualized fracture. Please refer to the operative report for further details. RAD/Foot min 3 Views IMPRESSION: Intraoperative images of the great toe. Electronically Signed: Kam Larsen DO at 21:00 EST ,
[2022-06-12] MEDS: Cefazolin 2 GM in 0.9% Normal Saline 100 ML IV (13:50)
[2022-06-12 15:25] VITALS: BP 105/53; BP 151/61; PULSE 69; RESP 16; TEMP 36.3; O2SAT 99
[2022-06-12 15:30] VITALS: BP 109/60; BP 151/61; PULSE 73; RESP 16; O2SAT 96
--- NOTE | 2022-06-12 15:35 | RAD_ITS ---
STUDY: X-RAY - LEFT FOOT CLINICAL: Female, 86 years old. Postop. Removal of prominent bone of the hallux. The fragment. TECHNIQUE: 3 view(s) of the foot. COMPARISON: Intraoperative images, June 12, 2022 March 05, 2022 FINDINGS: Normal talus, calcaneus, and tarsal bones. Normal visualized subtalar, talonavicular, calcaneocuboid, tarsal and tarsometatarsal articulations. Normal metatarsi. Normal metatarsophalangeal joint of the great toe. Normal tibial and fibular sesamoid bones. Normal interphalangeal joint of the great toe. Normal phalanges of the great toe. Normal second through fifth metatarsophalangeal joints. Normal interphalangeal joints and phalanges of the lesser toes. The soft tissue structures are unremarkable. RAD/Foot min 3 Views IMPRESSION: Normal x-ray examination of the foot. Electronically Signed: Kam Larsen DO at 21:01 EST ,
--- NOTE | 2022-06-12 15:44 | PCM.OPRPT ---
Problems Associated Problem List Diagnoses (1) Other deformities of toe(s) (acquired), left foot: (2) Non-pressure 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: (3) Non-pressure chronic ulcer of left calf with fat layer exposed: Report of Operation Date of Procedure: 06/12/22 Pre-Operative Diagnosis: 1. Hallux limitus/rigidus left foot with hallux IPJ pressure ulceration 2. Nonpressure ulceration anterior left calf Post-Operative Diagnosis: 1. Hallux limitus/rigidus left foot with hallux IPJ pressure ulceration 2. Nonpressure ulceration anterior left calf Surgery/Procedure Performed:: 1. Removal of accessory/arthritic bone left hallux 2. Debridement of left calf ulceration with application of advanced wound care product, Axiofill 3. Punch Biopsy of Left calf ulceration x 3 Description of Surgical Findings:: See operative report for findings Surgeon: Carson Oneal metal pickling equipment operator: Jignesh Sesay DPM PGY-2 Type of Anesthesia: General and Local Specimen's removed: Tissue left calf ulceration x3 Drains: None Estimated Blood Loss (mL): < 5mL Description of Procedure: HPI/indication: This is an 86-year-old female who has been followed by me at the wound center for a nonhealing ulceration of the hallucal interphalangeal joint secondary to hallux limitus/rigidus and a left anterior leg nonpressure ulceration. Radiographic imaging was obtained of the left foot demonstrating an accessory bone/arthritic bone of the plantar medial distal phalanx at the level of the interphalangeal joint. This was noted to be overlying the region of her ulcerative site. I have discussed surgical intervention to remove this portion of bone to aid in offloading of her wound to promote healing. Patient agreed and wished to proceed forward with surgical intervention. I discussed with her while in the operative room performing a debridement of her left anterior leg ulceration and applying an advanced wound care product to aid in her healing. She also agreed to this. A surgical discussion was had with the patient in which the procedure was discussed in great detail. Alternative options were also discussed in great detail. Patient wished to proceed forward with removal of the accessory/arthritic bone of the left hallux interphalangeal joint and debridement of the left leg ulceration with application of advanced wound care product. I discussed all inherent risks of the procedure include but are not limited to the following: Pain, persistent pain, swelling, numbness/neuritis, infection, overcorrection/under correction of deformity, the need for further surgical intervention, recurrence, CRPS, addiction to pain medication, scar tissue, poor cosmetic result, difficulty with shoe gear, blood clot, allergic reaction, postoperative arthritis, loss of function, loss of limb, and loss of life. The patient voices understanding of this and was able to repeat these back. No guarantees were made. Patient was cleared by her PCP for surgery. Patient was scheduled for surgery at [facility] on 06/12/2022 for excision of accessory/arthritic bone of the left hallux interphalangeal joint and debridement of the left leg ulceration with application of advanced wound care product. Operative limb was signed prior to surgery. Procedure: Under mild sedation patient was brought into the operating room and placed on the table in a supine position. Following induction of IV anesthetic a pneumatic thigh tourniquet was placed about the patient's left thigh. A local anesthetic block consisting of 10 cc of a one-to-one mixture of 1% lidocaine plain and 0.25% Marcaine plain was performed about the ulcerative site of the left leg. A local anesthetic block was also performed about the distal aspect of the first metatarsal head consisting of 10 cc one-to-one mixture of 1% lidocaine plain and 0.25% Marcaine plain. Next the foot was scrubbed, prepped, and draped in usual aseptic manner. The left leg was elevated and the pneumatic thigh tourniquet was inflated to 300 mmHg. Next, 4 x 4 gauze was utilized to cover the left lower extremity ulceration at the anterior leg prior to incision placement at the hallux. At this time attention was directed to the medial aspect of the hallux. Fluoroscopic images were obtained prior to incision in multiple views confirming the presence of the accessory bone/arthritic bone of the distal phalanx of the hallux. Just prior to incision the patient began moving and kicking and was thus converted to a general anesthesia. With the patient more relaxed callus debridement was performed utilizing a #15 blade in order to visualize the tissue for incision placement. A linear incision was made on the medial aspect of the hallux from the middle of the proximal phalanx to the middle of the distal phalanx. The incision was deepened utilizing sharp and blunt dissection. Care was taken to identify the flexor hallucis longus tendon and this was retracted plantarly and protected throughout the duration of this case. The accessory bone/arthritic bone of the distal phalanx of the hallux that was just adjacent to the interphalangeal joint was identified and noted to be overlying the site of the ulceration of the plantar medial hallux. This was sharply excised utilizing a rongeur and smoothed with a rasp. The wound bed was then palpated and noted to be no sharp underlying prominences. The site was then flushed with copious amounts of normal sterile saline. Fluoroscopic images were obtained postresection of bone in multiple views confirming the removal. Next the capsular structures were closed utilizing a 4-0 Monocryl. The subcutaneous tissue was then closed utilizing 4-0 Monocryl. And the skin was reapproximated with a 4-0 Prolene. Next, attention was directed to the ulceration of the left anterior lower extremity. Sharp debridement was performed of all necrotic tissue to healthy viable bleeding tissue. The ulceration was measured postdebridement and noted to be 5.0 cm x 4.4 cm x 0.2 cm. Ulceration was flushed with copious amounts of normal sterile saline. At this time 3 punch biopsies were performed of the ulcerative site: The proximal portion of the wound, the most distal portion of the wound, and the lateral aspect of the wound. These were sent to histology/pathology for analysis. Next, the wound bed was packed with 500mg of AxioFill. Adaptic was placed over the wound site and anchored with Steri-Strips. Next a postoperative block consisting of 5 cc one-to-one mixture of 1% lidocaine plain and 0.25% Marcaine plain was performed about the ulcerative site. An additional 5 cc of this one-to-one mixture was performed about the distal first metatarsal head. Postoperative block was performed to provide adequate postoperative pain control. A dry sterile dressing was applied overlying the ulcerative site consisting of 4 x 4 gauze and Kerlix. The left hallux surgical site was then dressed with Betadine soaked Adaptic, 4 x 4 gauze, Kerlix, a 4 inch Francisco Javier and a 6 inch Francisco Javier extending proximally above the ulcerative site. At this time the pneumatic thigh tourniquet was deflated and a prompt hyperemic response was noted to the digits of the left foot. The patient tolerated the anesthesia and procedure well and was transported to PACU with vital signs stable and vascular status intact to the left foot. Discharge instructions were given to the patient, her daughter, and her salon professional outlining postoperative instructions. Postoperative instructions were also discussed with family. Patient instructed to keep the dressings clean, dry, and intact to the left foot. Patient to elevate lower extremity at all times of rest. Patient permitted to be protected weightbearing to the left heel in a surgical shoe with the assistance of her walker. Patient will follow-up in the wound care center for her first postoperative visit. Grafts/Implants Used: MiMedix Axiofill 250mg x 2 ([id number] & PM [id number]) Complications None Admit VTE Documentation VTE Present on Admission: No VTE Mechan Device Prophylaxis: SCD's VTE Pharm Prophylaxis ordered?: No Reason prophylaxis not ordered:: Procedure Not Indicated
[2022-06-12 15:45] VITALS: BP 122/53; BP 151/61; PULSE 74; RESP 16; O2SAT 98
[2022-06-12 16:00] VITALS: BP 128/60; BP 151/61; PULSE 72; RESP 16; TEMP 36.9; O2SAT 99
[2022-06-12 17:03] VITALS: BP 148/69; BP 151/61; PULSE 73; RESP 16; TEMP 37.5; O2SAT 95
== END 2022-06-12 17:11 | disposition home or self-care (01) ==
LOC: SDC 12:06 → AC 12:08
PROVIDERS: PCP Family Medicine; Visit Provider Student in an Organized Health Care Education/Training Program
PROC: (CPT 28124; principal; 2022-06-12 13:15)
DX: L89.899 Pressure ulcer of other site, unspecified stage (principal); L97.522 Non-pressure 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; L97.222 Non-pressure chronic ulcer of left calf with fat layer exposed; M06.9 Rheumatoid arthritis, unspecified; J43.9 Emphysema, unspecified; I11.0 Hypertensive heart disease with heart failure; I50.9 Heart failure, unspecified; J84.10 Pulmonary fibrosis, unspecified; M20.5X2 Other deformities of toe(s) (acquired), left foot; M20.22 Hallux rigidus, left foot; Z79.899 Other long term (current) drug therapy; Z79.82 Long term (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 aspirin; K21.9 Gastro-esophageal reflux disease without esophagitis; E78.00 Pure hypercholesterolemia, unspecified
CPT/HCPCS: 28124; 11104; 11042; 11045; 11105 ×2; 01480; 73630; 76000; 88305; 88312; 88341; 88342; J7120; J2405

== ENCOUNTER 2022-07-23 10:00 | Outpatient (RCR) | payer MEDICARE, OTHER, SELFPAY ==
[2022-06-25 00:24] VITALS: BP 151/84; PULSE 75; RESP 18; TEMP 36.4; BMI 25.7
[2022-06-25 10:23] VITALS: BP 132/78; PULSE 67; TEMP 36.4; BMI 25.7
--- NOTE | 2022-06-25 10:26 | PCM.WC.PN ---
History of Present Illness Date of Service: 06/25/22 Chief Complaint: Bilateral knee wound History of Wound: Ms. Castro is an 86-year-old who is currently being seen for below knee ulcers however I was asked to see due to nonhealing bilateral knee wound. Said to have been sustained about 2 weeks ago when she fell on her knees. Initially had apply Chuyita to the area however, worsening was noted this week. She states that there has been a lot of rubbing underneath her clothing and so dressing has not stayed on adequately. She feels well. Denies chills, fever or feeling of unwell. 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 Patient denies any constitutional symptoms. Patient has no further complaints. Objective Data Objective Data Vital Signs: Vital Signs Temp Pulse Resp BP 97.5 F L 67 18 132/78 H 06/25/22 10:23 06/25/22 10:23 06/25/22 00:24 06/25/22 10:23 Weight: 70.307 kg Body Mass Index (BMI) 25.7 Physical Exam Const alert, oriented x3 and no apparent distress General Appearance: cooperative HEENT normocephalic Eyes General Eye: normal appearance of both eyes Neck General: normal visual inspection Lymph Lymphatic: no lymphadenopathy noted and no lymphedema noted Resp normal respiratory effort Cardio regular rate and regular rhythm Extremity normal capillary refill, no joint enlargement, no calf tenderness and no pedal edema Extremity Narrative: Right Lower Extremity: foot and digits Positive for ROM (Decreased range of motion at the first metatarsophalangeal joint secondary to end-stage hallux limitus/rigidus) Left Lower Extremity: foot and digits Positive for ROM (Decreased range of motion at the first metatarsophalangeal joint secondary to end-stage hallux limitus/rigidus) Skin no rashes or lesions noted, skin turgor normal and no jaundice Skin Narrative: Skin is thin and friable/atrophic to bilateral lower extremities Wound Narrative: Left lower extremity: Skin intact with brawny discoloration and hemosiderin deposition secondary to venous insufficiency/stasis.? There is an ulceration left anterior medial lower extremity with granular wound base. No signs of infection. Surrounding skin is friable. Left hallux sub-IPJ surgical site demonstrates intact sutures with some skin maceration secondary to strikethrough drainage. No signs of infection. Right lower extremity: There are 2 eschars, 1 to the anterior medial leg and the second to the medial ankle. Eschars demonstrate some surrounding crusting/hyperkeratosis. Eschars are stable currently but friable. Neuro moves all extremities Debridement Note Debridement Note No debridement was completed: No debridement was completed today Post-Debridement Measurements and Additional Note: Post-Debridement Measurements/Treatment WC - Nurse 1 - General Ulcer Assessment Start: 06/25/22 10:22 Freq: Status: Active Protocol: ALEX Activity Type Activity Date Activity User E-sign Co-sign Detail Recorded Client Recorded Date Recorded By Document 06/25/22 10:23 TORSTEN [id number] 06/25/22 10:23 TORSTEN 06/25/22 10:23 - Today's Visit Information Type of service Follow-up Visit (Physician/[facility] ) Arrival Mode Ambulatory Patient Identification Verified (Name & Yes ) Height and Weight Body Mass Index (BMI) 25.7 BMI Classification Overweight Vital Signs Temperature (97.8 F-99.1 F) 97.5 F L Temperature Source Temporal Pulse Rate (60-100) 67 Pulse Location Monitor Blood Pressure (90/60-120/80) 132/78 H Blood Pressure Mean (mm Hg) 96 Source Monitor Position Sitting Blood Pressure Location Right Arm History Since Last Visit- (Skip if this is Patient's initial visit) Have you changed medications since your No last visit? Any new allergies or adverse reactions No Had a fall/change in ADL's that may No increase risk of falls Signs or symptoms of abuse and/or No neglect since last visit Have you been in the hospital since your No last visit? Has dressing in place as prescribed Yes Has compression in place as prescribed Yes Has offloadiing in place as prescribed N/A Experienced any changes in pain level or No management Left Footwear Regular Shoe Right Footwear Regular Shoe Pain Scale: 0-10 Numeric Is Patient Pain Free? Yes Assessment/Plan Assessment/Plan (1) Leg edema, left: CODE(S): R60.0 - Localized edema (2) Varicose veins of left lower extremity with ulcer of calf: CODE(S): I83.022 - Varicose veins of left lower extremity with ulcer of calf (3) Non-pressure chronic ulcer of left calf with fat layer exposed: CODE(S): L97.222 - Non-pressure chronic ulcer of left calf with fat layer exposed (4) Chronic venous insufficiency: (5) Non-pressure 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: CODE(S): L97.522 - Non-pressure 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 I discussed her case today. She is s/p removal of accessory bone left hallux and debridement with biopsy of left lower extremity ulceration. POV #1, DOS 06/12/2022, POD #13 I discussed with her and her multimedia coordinator today the results of the lower extremity ulceration biopsy performed on 06/12/2022. 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 I recommended complete excision of this lesion and possibly including 2 lesions of the right lower extremity. I discussed these pathological results in detail today. I recommended consult with vascular surgeon Dr. Cochran to perform excision with possible regional lymph node biopsy and further work-up. Follow-up with oncologist was also recommended. I also contacted her daughter informing her of these results. Left lower extremity ulceration secondary to eschar being removed by article of clothing.? Ulcerative site measures 4.0 cm x 4.7 cm x 0.1 cm.? No localized signs of infection.? Epi fix graft #9 applied to ulcerative site 04/30/22. At this time we will continue to hold epifix graft. Adaptic and dry sterile dressing applied to the wound.? She will change dressings daily.? She may wash site with soap and water Left plantar hallux wound secondary to hallux limitus/end-stage arthritis of the first metatarsophalangeal joint. Sutures are intact to surgical site of the left hallux with some slight maceration secondary to postoperative strikethrough. No signs of infection. She continues to ambulate in a surgical shoe to the left foot. Surgical site dressed with Betadine soaked Adaptic, 4 x 4 gauze, Kerlix, and an Francisco Javier wrap lightly rolled onto the foot. Patient to continue to elevate lower extremities in addition to wearing her Tubigrip compression stockings bilateral to aid in edema control.?I discussed with her that she is to continue to elevate her feet at times of rest. Patient voices understanding of this. The following work up and care recommendations were made: Dressing: Betadine soaked Adaptic, 4 x 4 gauze, Kerlix, and an Francisco Javier wrap to the left foot Wash: Do not get wet Tissue growth optimization: None Offload: Offloading dressing of the first metatarsophalangeal joint and left hallux Vascular: Vascular status intact with palpable pedal pulses. She had venous studies performed confirming reflux of the left great saphenous vein with no deep venous thrombosis bilaterally. Edema: Elevation of the left lower extremity and right lower extremity control to control edema.?Patient instructed to wear double Tubigrip stockings Infection: No localized signs of infection Pain: May take [id number] Tylenol, safe oral anti-inflammatory use discussed. Host factors: Chronic venous insufficiency ? I answered all the patient's questions.? To return to the wound healing center in 1 week or call sooner if the patient has any questions or concerns. Note: [employer] speech recognition coning machine operator software was used to create portions of this document. Sound-alike and misspelled words, as well as other coning machine operator errors may be contained in the documentation.
--- NOTE | 2022-07-02 10:03 | PN.PCM_ITS ---
History of Present Illness Date of Service: 07/02/22 Chief Complaint: Bilateral knee wound History of Wound: Ms. Castro is an 86-year-old who is currently being seen for below knee ulcers however I was asked to see due to nonhealing bilateral knee wound. Said to have been sustained about 2 weeks ago when she fell on her knees. Initially had apply [place] to the area however, worsening was noted this week. She states that there has been a lot of rubbing underneath her clothing and so dressing has not stayed on adequately. She feels well. Denies chills, fever or feeling of unwell. 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 Patient denies any constitutional symptoms. Patient has no further complaints. Objective Data Objective Data Vital Signs: Vital Signs Temp Pulse Resp BP 97.5 F L 67 18 132/78 H 06/25/22 10:23 06/25/22 10:23 06/25/22 00:24 06/25/22 10:23 Weight: 70.307 kg Body Mass Index (BMI) 25.7 Physical Exam Const alert, oriented x3 and no apparent distress General Appearance: cooperative HEENT normocephalic Eyes General Eye: normal appearance of both eyes Neck General: normal visual inspection Lymph Lymphatic: no lymphadenopathy noted and no lymphedema noted Resp normal respiratory effort Cardio regular rate and regular rhythm Extremity normal capillary refill, no joint enlargement, no calf tenderness and no pedal edema Extremity Narrative: Right Lower Extremity: foot and digits Positive for ROM (Decreased range of motion at the first metatarsophalangeal joint secondary to end-stage hallux limitus/rigidus) Left Lower Extremity: foot and digits Positive for ROM (Decreased range of motion at the first metatarsophalangeal joint secondary to end-stage hallux limitus/rigidus) Skin no rashes or lesions noted, skin turgor normal and no jaundice Skin Narrative: Skin is thin and friable/atrophic to bilateral lower extremities Wound Narrative: Left lower extremity: Skin intact with brawny discoloration and hemosiderin deposition secondary to venous insufficiency/stasis.? There is an ulceration left anterior medial lower extremity with granular wound base. No signs of infection. Surrounding skin is friable. Left hallux sub-IPJ surgical site demonstrates loose sutures secondary to hitting her walker on the toe. Some skin maceration secondary to strikethrough drainage. No signs of infection. Right lower extremity: There are 2 eschars, 1 to the anterior medial leg and the second to the medial ankle. Eschars demonstrate some surrounding crusting/hyperkeratosis. Eschars are stable currently but friable. Neuro moves all extremities Debridement Note Debridement Note No debridement was completed: No debridement was completed today Post-Debridement Measurements and Additional Note: Post-Debridement Measurements/Treatment - Nurse 1 - General Ulcer Assessment Start: 06/25/22 10:22 Freq: Status: Active Protocol: [email or web address] Activity Type Activity Date Activity User E-sign Co-sign Detail Recorded Client Recorded Date Recorded By Document 06/25/22 10:23 TORSTEN [id number] 06/25/22 10:23 TORSTEN 06/25/22 10:23 - Today's Visit Information Type of service Follow-up Visit (Physician/[facility] ) Arrival Mode Ambulatory Patient Identification Verified (Name & Yes ) Height and Weight Body Mass Index (BMI) 25.7 BMI Classification Overweight Vital Signs Temperature (97.8 F-99.1 F) 97.5 F L Temperature Source Temporal Pulse Rate (60-100) 67 Pulse Location Monitor Blood Pressure (90/60-120/80) 132/78 H Blood Pressure Mean (mm Hg) 96 Source Monitor Position Sitting Blood Pressure Location Right Arm History Since Last Visit- (Skip if this is Patient's initial visit) Have you changed medications since your No last visit? Any new allergies or adverse reactions No Had a fall/change in ADL's that may No increase risk of falls Signs or symptoms of abuse and/or No neglect since last visit Have you been in the hospital since your No last visit? Has dressing in place as prescribed Yes Has compression in place as prescribed Yes Has offloadiing in place as prescribed N/A Experienced any changes in pain level or No management Left Footwear Regular Shoe Right Footwear Regular Shoe Pain Scale: 0-10 Numeric Is Patient Pain Free? Yes WC - Nurse 3 - General Ulcer D/C NN Start: 06/25/22 10:22 Freq: Status: Active Protocol: Activity Type Activity Date Activity User E-sign Co-sign Detail Recorded Client Recorded Date Recorded By Document 06/25/22 12:25 TORSTEN [id number] 06/25/22 12:25 TORSTEN 06/25/22 12:25 Wound Care Nurse 3 #9 Left Lower Leg Medial -Primary Dressing Applied NonAdherent Contact Layer -Other Dressing betadine -Primary Dressing Covered/Secured with Dry Gauze, Secured with Tape Pain Scale: 0-10 Numeric Is Patient Pain Free? Yes WC - Visit Discharge Discharge Condition Stable Ambulatory Status Ambulatory,Cane Transportation Private Auto Accompanied by friend Assessment/Plan Assessment/Plan (1) Leg edema, left: CODE(S): R60.0 - Localized edema (2) Varicose veins of left lower extremity with ulcer of calf: CODE(S): I83.022 - Varicose veins of left lower extremity with ulcer of calf (3) Non-pressure chronic ulcer of left calf with fat layer exposed: CODE(S): L97.222 - Non-pressure chronic ulcer of left calf with fat layer exposed (4) Chronic venous insufficiency: (5) Non-pressure 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: CODE(S): L97.522 - Non-pressure 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 I discussed her case today. She is s/p removal of accessory bone left hallux and debridement with biopsy of left lower extremity ulceration. POV #2, DOS 06/12/2022, POD #20 I discussed with her and her medical laboratory technicians the results of the lower extremity ulceration biopsy performed on 06/12/2022. 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 I recommended complete excision of this lesion and possibly including 2 lesions of the right lower extremity. I d iscussed these pathological results in detail today. I recommended consult with Plastic Surgeon to perform excision with possible regional lymph node biopsy and further work-up. Follow-up with oncologist was also recommended. Daughter was also informed of these results. Left lower extremity ulceration secondary to eschar being removed by article of clothing.? Ulcerative site measures 4.0 cm x 4.7 cm x 0.1 cm.? No localized signs of infection.? Epi fix graft #9 applied to ulcerative site 04/30/22. At this time we will continue to hold epifix graft. Adaptic and dry sterile dressing applied to the wound.? She will change dressings daily.? She may wash site with soap and water and dress with dry sterile dressings. She does complain of some left lower extremity calf pain today with some swe lling. There is no erythema about the left lower extremity calf. Venous Doppler was ordered to rule out DVT. 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 Sutures are loose to surgical site of the left hallux with some slight maceration secondary to postoperative strikethrough. She states that she hit the toe on the top with a walker smashing it between the walker and the surgical shoe, thus creating dehiscence at the surgical site. No signs of infection. She continues to ambulate in a surgical shoe to the left foot. Surgical site dressed with Betadine Steri-Strips, 4 x 4 gauze, Kerlix, and an Francisco Javier wrap lightly rolled onto the foot. Patient to continue to elevate lower extremities in addition to wearing her Tubigrip compression stockings bilateral to aid in edema control.?I discussed with her that she is to continue to elevate her feet at times of rest. Patient voices understanding of this. The etiology of thickened toenails was briefly reviewed including fungus or microtrauma. The nails were debrided with a nail nipper after verbal consent was obtained without incident. The nails 1, 2, 3, 4, and 5 of the left and right foot were debrided in length and thickness to reduce pressure, potential fungal load, and to prevent wound formation. The patient tolerated this well. The patient elects proceed with palliative care only at this time with the nails and will hold off on further work-up. To follow-up with the foot and ankle Center if needed in the future for this condition. The following work up and care recommendations were made: Dressing: Betadine, Steri-Strips, 4 x 4 gauze, Kerlix, and an Francisco Javier wrap to the left foot Wash: Do not get wet Tissue growth optimization: None Offload: Offloading dressing of the first metatarsophalangeal joint and left hallux Vascular: Vascular status intact with palpable pedal pulses. She had venous studies performed confirming reflux of the left great saphenous vein with no deep venous thrombosis bilaterally. Edema: Elevation of the left lower extremity and right lower extremity control to control edema.?Patient instructed to wear double Tubigrip stockings Infection: No localized signs of infection Pain: May take [id number] Tylenol, safe oral anti-inflammatory use discussed. Host factors: Chronic venous insufficiency ? I answered all the patient's questions.? To return to the wound healing center in 1 week or call sooner if the patient has any questions or concerns. Note: [employer] speech recognition accountant assistant software was used to create portions of this document. Sound-alike and misspelled words, as well as other accountant assistant errors may be contained in the documentation.
[2022-07-02 10:08] VITALS: BP 144/60; PULSE 79; RESP 16; TEMP 35.7; BMI 25.7
--- NOTE | 2022-07-02 14:52 | VDLE_ITS ---
Reason For Study: R/O DVT RIGHT LEFT GSV is normal. GSV is normal. CFV is compressible, spontaneous, phasic, CFV is compressible, spontaneous, phasic, competent and demonstrates normal competent, and demonstrates normal augmentation. augmentation. FV is compressible, spontaneous, phasic, FV is compressible, spontaneous, phasic, competent and demonstrates normal competent and demonstrates normal augmentation. augmentation. POP V is compressible, spontaneous, phasic, POP V is compressible, spontaneous, phasic, competent and demonstrates normal competent and demonstrates normal augmentation. augmentation. T/P Trunk is compressible. T/P Trunk is compressible. PTV is compressible. PTV is compressible. RT PerV is compressible. LT PerV is compressible. Procedure This is a venous duplex using B-mode, color flow and spectral Doppler. Exam performed in department. Calf veins in left leg only visualized at prox calf due to bandages. A preliminary report was called and/or faxed to J[facility]. VL/Venous Duplex US - Tunde Extrem Interpretation Summary Deep veins of the lower extremities are bilaterally patent and compressible seg mentally. There is no evidence of deep vein thrombosis on either side. Valvular competence appears in tact within the proximal deep venous systems bilaterally. The great saphenous veins appear bila terally patent and compressible segmentally. Ordering Physician: Carson Oneal Referring Physician: Carson Kennedy Performed By: Yumiko Serrano RVT
--- NOTE | 2022-07-09 10:04 | PN.PCM_ITS ---
History of Present Illness Date of Service: 07/09/22 Chief Complaint: Bilateral knee wound History of Wound: Ms. Castro is an 86-year-old who is currently being seen for below knee ulcers however I was asked to see due to nonhealing bilateral knee wound. Said to have been sustained about 2 weeks ago when she fell on her knees. Initially had apply Ch[place] to the area however, worsening was noted this week. She states that there has been a lot of rubbing underneath her clothing and so dressing has not stayed on adequately. She feels well. Denies chills, fever or feeling of unwell. 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 She states she met with the plastic surgeon for excision of her cancerous lesion. Patient denies any constitutional symptoms. Patient has no further complaints. Objective Data Objective Data Vital Signs: Vital Signs Temp Pulse Resp BP O2 Del Method 96.2 F L 79 16 144/60 H Room Air 07/02/22 10:08 07/02/22 10:08 07/02/22 10:08 07/02/22 10:08 07/02/22 10:08 Oxygen Delivery Method Room Air Weight: 70.307 kg Body Mass Index (BMI) 25.7 Physical Exam Const alert, oriented x3 and no apparent distress General Appearance: cooperative HEENT normocephalic Eyes General Eye: normal appearance of both eyes Neck General: normal visual inspection Lymph Lymphatic: no lymphadenopathy noted and no lymphedema noted Resp normal respiratory effort Cardio regular rate and regular rhythm Extremity normal capillary refill, no joint enlargement, no calf tenderness and no pedal edema Extremity Narrative: Right Lower Extremity: foot and digits Positive for ROM (Decreased range of motion at the first metatarsophalangeal joint secondary to end-stage hallux limitus/rigidus) Left Lower Extremity: foot and digits Positive for ROM (Decreased range of motion at the first metatarsophalangeal joint secondary to end-stage hallux limitus/rigidus) Skin no rashes or lesions noted, skin turgor normal and no jaundice Skin Narrative: Skin is thin and friable/atrophic to bilateral lower extremities Wound Narrative: Left lower extremity: Skin intact with brawny discoloration and hemosiderin deposition secondary to venous insufficiency/stasis.? There is an ulceration left anterior medial lower extremity with granular wound base. No signs of infection. Surrounding skin is friable. Left hallux sub-IPJ surgical site demonstrates dehiscence to the surgical site secondary to hitting her walker on the toe. Some skin maceration secondary to strikethrough drainage. No signs of infection. Right lower extremity: There are 2 eschars, 1 to the anterior medial leg and the second to the medial ankle. Eschars demonstrate some surrounding crusting/hyperkeratosis with elevation of the eschar. Eschars are stable currently but friable. Neuro moves all extremities Debridement Note Debridement Note Wound debrided: Left medial hallux Laterality: Left Wound Grade/Stage: Russell stage I Type of Debridement: Excisional debridement Anesthesia Used: 5% Lidocaine Gel Depth: Down to and including healthy tissue and in the subcutaneous layer Percentage of wound debrided: 100 Instrument Used: 3mm curette Tissue Removed: Fibrous, devitalized subcutaneous, biofilm, slough Severity: Fat Layer Exposed Amount of bleeding with debridement: Mild Bleeding Controlled with: Compression and gauze Patient tolerated procedure: Patient tolerated procedure well Post-Debridement Measurements and Additional Note: Post-Debridement Measurements/Treatment - Nurse 1 - General Ulcer Assessment Start: 06/25/22 10:22 Freq: Status: Active Protocol: BOSSMAN Activity Type Activity Date Activity User E-sign Co-sign Detail Recorded Client Recorded Date Recorded By Document 06/25/22 10:23 [id number] 06/25/22 10:23 Document 07/02/22 10:08 [facility] [id number] 07/02/22 10:20 [facility] 06/25/22 07/02/22 10:23 10:08 - Today's Visit Information Type of service Follow-up Visit Follow-up Visit (Physician/CREDIT RESOLUTION REPRESENTATIVE (Physician/CREDIT RESOLUTION REPRESENTATIVE ) ) Arrival Mode Ambulatory Ambulatory,Cane Transfer Assistance None Accompanied by caregiver Patient Identification Verified (Name & Yes Yes ) Patient Requires Transmission-Based No Precautions Height and Weight Body Mass Index (BMI) 25.7 25.7 BMI Classification Overweight Overweight Vital Signs Temperature (97.8 F-99.1 F) 97.5 F L 96.2 F L Temperature Source Temporal Temporal Pulse Rate (60-100) 67 79 Pulse Location Monitor Monitor Respiratory Rate (12-18) 16 Respiratory rate source Observation Oxygen Delivery Method Room Air Blood Pressure (90/60-120/80) 132/78 H 144/60 H Blood Pressure Mean (mm Hg) 96 88 Source Monitor Monitor Position Sitting Sitting Blood Pressure Location Right Arm History Since Last Visit- (Skip if this is Patient's initial visit) Have you changed medications since your No No last visit? Any new allergies or adverse reactions No No Had a fall/change in ADL's that may No No increase risk of falls Signs or symptoms of abuse and/or No No neglect since last visit Have you been in the hospital since your No No last visit? Has dressing in place as prescribed Yes Yes Has compression in place as prescribed Yes N/A Has offloadiing in place as prescribed N/A N/A Experienced any changes in pain level or No No management Left Footwear Regular Shoe Surgical Shoe with pressure relief insole Right Footwear Regular Shoe Regular Shoe Pain Scale: 0-10 Numeric Is Patient Pain Free? Yes Yes WC - Nurse 1 - General Ulcer Measurement Start: 06/25/22 10:22 Freq: Status: Active Protocol: Activity Type Activity Date Activity User E-sign Co-sign Detail Recorded Client Recorded Date Recorded By Document 07/02/22 10:08 [facility] [id number] 07/02/22 10:20 [facility] 07/02/22 10:08 Wound Center Nurse 1 #10- L HALLUX POST OP -Combined with other wound No -Current Size (cm) - Length 1 -Current Size (cm) - Width 0.8 -Current Size (cm) - Depth 0.2 -Total Square Cm 0.8 -Date of Last Picture (Recall this 07/02/22 field) -Photo Taken Yes -Epithelialization None Present -Tunneling No -Undermining/Tunneling No -Circular Undermining No -Exudate Amt Medium -Exudate Type Serosanguineous -Wound Margin Distinct, Outline Attached -Granulation Amt Small (1-33%) -Granulation Quality [place] -Texture (Vangie-wound Skin Appearance) Assessed, Fluctuance -Moisture (Vangie-wound Skin Appearance) Assessed -Color (Vangie-wound Skin Appearance) Assessed -Temperature (Vangie-wound Skin No Abnormality Appearance) (Pt Warm) -Tenderness on Palpation (Vangie-wound No Skin Appearance) -Ulcer Cleansing Soap and Water -Foul Odor after Cleansing No -Anesthetic Used 5% Lidocaine Gel -Wound Comment(s) SUTURES INTACT, SMALL OPEN AREA @ CENTER #9 Left Lower Leg Medial -Combined with other wound No -Current Size (cm) - Length 5.4 -Current Size (cm) - Width 4 -Current Size (cm) - Depth 0.1 -Total Square Cm 21.6 -Date of Last Picture (Recall this 07/02/22 field) -Photo Taken Yes -Epithelialization None Present -Tunneling No -Undermining/Tunneling No -Circular Undermining No -Exudate Amt Medium -Exudate Type Serosanguineous -Wound Margin Distinct, Outline Attached -Granulation Amt Large (67-100%) -Granulation Quality Red -Slough/Fibrin Yes -Necrosis Amt Small (1-33%) -Necrotic Tissue Type Eschar -Texture (Vangie-wound Skin Appearance) Assessed, Scarring -Moisture (Vangie-wound Skin Appearance) Assessed,Dry/ Scaly -Color (Vangie-wound Skin Appearance) Assessed -Temperature (Vangie-wound Skin No Abnormality Appearance) (Pt Warm) -Tenderness on Palpation (Vangie-wound No Skin Appearance) -Ulcer Cleansing Soap and Water -Foul Odor after Cleansing No -Anesthetic Used 5% Lidocaine Gel WC - Nurse 3 - General Ulcer D/C NN Start: 06/25/22 10:22 Freq: Status: Active Protocol: Activity Type Activity Date Activity User E-sign Co-sign Detail Recorded Client Recorded Date Recorded By Document 06/25/22 12:25 KR [id number] 06/25/22 12:25 KR Document 07/02/22 10:48 DL [id number] 07/02/22 10:51 DL 06/25/22 07/02/22 12:25 10:48 Wound Care Nurse 3 #10- L HALLUX POST OP -Foul Odor after Cleansing No -Primary Dressing Applied NonAdherent Contact Layer -Other Dressing betadine -Primary Dressing Covered/Secured with Dry Gauze & Roll Gauze, Secured with Tape #9 Left Lower Leg Medial -Foul Odor after Cleansing No -Primary Dressing Applied NonAdherent NonAdherent Contact Layer Contact Layer -Other Dressing betadine betadine -Primary Dressing Covered/Secured with Dry Gauze, Dry Gauze & Secured with Roll Gauze, Tape Secured with Tape Left -Tubular Bandage Single Layer -Size of Tubigrip Used Size E -Size E ($) 1 Treatment Response Procedure Tolerated Well Pain Scale: 0-10 Numeric Is Patient Pain Free? Yes Yes WC - Visit Discharge Discharge Condition Stable Stable Ambulatory Status Ambulatory,Cane Ambulatory,Cane Transportation Private Auto Private Auto Accompanied by friend Assessment/Plan Assessment/Plan (1) Leg edema, left: CODE(S): R60.0 - Localized edema (2) Varicose veins of left lower extremity with ulcer of calf: CODE(S): I83.022 - Varicose veins of left lower extremity with ulcer of calf (3) Non-pressure chronic ulcer of left calf with fat layer exposed: CODE(S): L97.222 - Non-pressure chronic ulcer of left calf with fat layer exposed (4) Chronic venous insufficiency: (5) Non-pressure 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: CODE(S): L97.522 - Non-pressure 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 I discussed her case today. She is s/p removal of accessory bone left hallux and debridement with biopsy of left lower extremity ulceration. POV #3, DOS 06/12/2022, POD #27 I have previously discussed with her and her hoop coiler the results of the lower extremity ulceration biopsy performed on 06/12/2022. 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 I recommended complete excision of this lesion and possibly including 2 lesions of the right lower extremity. I discussed these pathological results in detail today. I recommended consult with Plastic Surgeon to perform excision with possible regional lymph node biopsy and further work-up. Follow-up with oncologist was also recommended. Daughter was also informed of these results. She informs me that she has met with the plastic surgeon for excision of her cancerous lesions. Left lower extremity ulceration secondary to eschar being removed by article of clothing.? Ulcerative site measures 5.0 cm x 4.7 cm x 0.1 cm.? No localized si gns of infection.? Epi fix graft #9 applied to ulcerative site 04/30/22. At this time we will continue to hold epifix graft. She is aware that this site is cancerous and needs to undergo complete excision. Adaptic and dry sterile dressing applied to the wound.? She will change dressings daily.? She may wash site with soap and water and dress with dry sterile dressings. Venous Doppler was [id number]/8/22 was negative for DVT. 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 Surgical site of the left hallux has undergot dehiscence with some slight maceration secondary hitting the toe on the top with a walker smashing it between the walker and the surgical shoe. Site demonstrates mixed fiber granular tissue which underwent debridement as noted in the clinical panel above. No signs of infection. She continues to ambulate in a surgical shoe to the left foot to the heel. Surgical site dressed with Betadine Steri-Strips, 4 x 4 gauze, Kerlix, and an Francisco Javier wrap lightly rolled onto the foot. I discussed with her today if the site is not making enough progress with Steri- Strip reduction that a thorough debridement and cleansing of the site will be performed next visit with a closure of the wound. Patient to continue to elevate lower extremities in addition to wearing her Tubigrip compression stockings bilateral to aid in edema control.?I discussed with her that she is to continue to elevate her feet at times of rest. Patient voices understanding of this. The following work up and care recommendations were made: Dressing: Betadine, Steri-Strips, 4 x 4 gauze, Kerlix, and an Francisco Javier wrap to the left foot Wash: Do not get wet Tissue growth optimization: None Offload: Offloading dressing of the first metatarsophalangeal joint and left hallux Vascular: Vascular status intact with palpable pedal pulses. She had venous studies performed confirming reflux of the left great saphenous vein with no deep venous thrombosis bilaterally. Edema: Elevation of the left lower extremity and right lower extremity control to control edema.?Patient instructed to wear double Tubigrip stockings Infection: No localized signs of infection Pain: May take [id number] Tylenol, safe oral anti-inflammatory use discussed. Host factors: Chronic venous insufficiency ? I answered all the patient's questions.? To return to the wound healing center in 1 week or call sooner if the patient has any questions or concerns. Note: [email or web address] speech recognition transit manager software was used to create portions of this document. Sound-alike and misspelled words, as well as other transit manager errors may be contained in the documentation.
[2022-07-09 10:10] VITALS: TEMP 36.2; BMI 25.7
--- NOTE | 2022-07-16 10:12 | PN.PCM_ITS ---
History of Present Illness Date of Service: 07/16/22 Chief Complaint: Bilateral knee wound History of Wound: Ms. Castro is an 86-year-old who is currently being seen for below knee ulcers however I was asked to see due to nonhealing bilateral knee wound. Said to have been sustained about 2 weeks ago when she fell on her knees. Initially had apply Chuyita to the area however, worsening was noted this week. She states that there has been a lot of rubbing underneath her clothing and so dressing has not stayed on adequately. She feels well. Denies chills, fever or feeling of unwell. 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 She states she met with the plastic surgeon for excision of her cancerous lesion scheduled to undergo excision on 07/24/2022. Patient denies any constitutional symptoms. Patient has no further complaints. Objective Data Objective Data Vital Signs: Vital Signs Temp Pulse Resp BP O2 Del Method 97.2 F L 79 16 144/60 H Room Air 07/09/22 10:10 07/02/22 10:08 07/02/22 10:08 07/02/22 10:08 07/02/22 10:08 Oxygen Delivery Method Room Air Weight: 70.307 kg Body Mass Index (BMI) 25.7 Physical Exam Const alert, oriented x3 and no apparent distress General Appearance: cooperative HEENT normocephalic Eyes General Eye: normal appearance of both eyes Neck General: normal visual inspection Lymph Lymphatic: no lymphadenopathy noted and no lymphedema noted Resp normal respiratory effort Cardio regular rate and regular rhythm Extremity normal capillary refill, no joint enlargement, no calf tenderness and no pedal edema Extremity Narrative: Right Lower Extremity: foot and digits Positive for ROM (Decreased range of motion at the first metatarsophalangeal joint secondary to end-stage hallux limitus/rigidus) Left Lower Extremity: foot and digits Positive for ROM (Decreased range of motion at the first metatarsophalangeal joint secondary to end-stage hallux limitus/rigidus) Skin no rashes or lesions noted, skin turgor normal and no jaundice Skin Narrative: Skin is thin and friable/atrophic to bilateral lower extremities Wound Narrative: Left lower extremity: Skin intact with brawny discoloration and hemosiderin deposition secondary to venous insufficiency/stasis.? There is an ulceration left anterior medial lower extremity with granular wound base. No signs of infection. Surrounding skin is friable. Left hallux sub-IPJ surgical site demonstrates dehiscence to the surgical site secondary to hitting her walker on the toe. Some skin maceration secondary to strikethrough drainage. No signs of infection. Right lower extremity: There are 2 eschars, 1 to the anterior medial leg and the second to the medial ankle. Eschars demonstrate some surrounding crusting/hyperkeratosis with elevation of the eschar. Eschars are stable currently but friable. Neuro moves all extremities Debridement Note Debridement Note Wound debrided: Left hallux Laterality: Left Wound Grade/Stage: Russell stage I Type of Debridement: Excisional debridement Anesthesia Used: 5% Lidocaine Gel Depth: Down to and including healthy tissue and in the subcutaneous layer Percentage of wound debrided: 100 Instrument Used: - (1 mm curette) Tissue Removed: Fibrous, devitalized subcutaneous, biofilm, slough Severity: Fat Layer Exposed Amount of bleeding with debridement: Mild Bleeding Controlled with: Compression and gauze Patient tolerated procedure: Patient tolerated procedure well Post-Debridement Measurements and Additional Note: Post-Debridement Measurements/Treatment - Nurse 1 - General Ulcer Assessment Start: 06/25/22 10:22 Freq: Status: Active Protocol: ALEX Activity Type Activity Date Activity User E-sign Co-sign Detail Recorded Client Recorded Date Recorded By Document 06/25/22 10:23 [id number] 06/25/22 10:23 KR Document 07/02/22 10:08 [facility] [id number] 07/02/22 10:20 [facility] Document 07/09/22 10:10 [place] [id number] 07/09/22 10:21 AK 06/25/22 07/02/22 07/09/22 10:23 10:08 10:10 - Today's Visit Information Type of service Follow-up Visit Follow-up Visit Follow-up Visit (Physician/TRIPLE DRUM OPERATOR (Physician/TRIPLE DRUM OPERATOR (Physician/TRIPLE DRUM OPERATOR ) ) ) Arrival Mode Ambulatory Ambulatory,Cane Transfer Assistance None Accompanied by caregiver Patient Identification Verified (Name & Yes Yes Yes ) Patient Requires Transmission-Based No No Precautions Safety Precautions NA Height and Weight Body Mass Index (BMI) 25.7 25.7 25.7 BMI Classification Overweight Overweight Overweight Vital Signs Temperature (97.8 F-99.1 F) 97.5 F L 96.2 F L 97.2 F L Temperature Source Temporal Temporal Temporal Pulse Rate (60-100) 67 79 Pulse Location Monitor Monitor Respiratory Rate (12-18) 16 Respiratory rate source Observation Oxygen Delivery Method Room Air Blood Pressure (90/60-120/80) 132/78 H 144/60 H Blood Pressure Mean (mm Hg) 96 88 Source Monitor Monitor Position Sitting Sitting Blood Pressure Location Right Arm History Since Last Visit- (Skip if this is Patient's initial visit) Have you changed medications since your No No No last visit? Any new allergies or adverse reactions No No No Had a fall/change in ADL's that may No No No increase risk of falls Signs or symptoms of abuse and/or No No No neglect since last visit Have you been in the hospital since your No No No last visit? Has dressing in place as prescribed Yes Yes Yes Has compression in place as prescribed Yes N/A Yes Has offloadiing in place as prescribed N/A N/A N/A Experienced any changes in pain level or No No No management Left Footwear Regular Shoe Surgical Shoe Surgical Shoe with pressure with pressure relief insole relief insole Right Footwear Regular Shoe Regular Shoe Regular Shoe Pain Scale: 0-10 Numeric Is Patient Pain Free? Yes Yes No WC - Nurse 1 - General Ulcer Measurement Start: 06/25/22 10:22 Freq: Status: Active Protocol: Activity Type Activity Date Activity User E-sign Co-sign Detail Recorded Client Recorded Date Recorded By Document 07/02/22 10:08 [facility] [id number] 07/02/22 10:20 [facility] Document 07/09/22 10:10 [place] [id number] 07/09/22 10:21 [place] 07/02/22 07/09/22 10:08 10:10 Wound Center Nurse 1 #10- L HALLUX POST OP -Combined with other wound No No -Current Size (cm) - Length 1 0.5 -Current Size (cm) - Width 0.8 2 -Current Size (cm) - Depth 0.2 0.1 -Total Square Cm 0.8 1.0 -Date of Last Picture (Recall this 07/02/22 field) -Photo Taken Yes Yes -Epithelialization None Present -Tunneling No No -Undermining/Tunneling No No -Circular Undermining No No -Change in Wound Grade/Stage No -Exudate Amt Medium Medium -Exudate Type Serosanguineous Serosanguineous -Wound Margin Distinct, Distinct, Outline Outline Attached Attached -Granulation Amt Small (1-33%) Medium (34-66%) -Granulation Quality Greenevers Greenevers -Slough/Fibrin Yes -Necrosis Amt Medium (34-66%) -Necrotic Tissue Type Adherent Slough -Structure Exposed N/A -Texture (Vangie-wound Skin Appearance) Assessed, Assessed,Callus Fluctuance -Moisture (Vangie-wound Skin Appearance) Assessed Assessed -Color (Vangie-wound Skin Appearance) Assessed No Abnormality, Assessed -Temperature (Vangie-wound Skin No Abnormality No Abnormality Appearance) (Pt Warm) (Pt Warm) -Tenderness on Palpation (Vangie-wound No No Skin Appearance) -Ulcer Cleansing Soap and Water Soap and Water -Foul Odor after Cleansing No No -Anesthetic Used 5% Lidocaine 5% Lidocaine Gel Gel -Wound Comment(s) SUTURES INTACT, SMALL OPEN AREA @ CENTER #9 Left Lower Leg Medial -Combined with other wound No No -Current Size (cm) - Length 5.4 5 -Current Size (cm) - Width 4 3.5 -Current Size (cm) - Depth 0.1 0.1 -Total Square Cm 21.6 17.5 -Date of Last Picture (Recall this 07/02/22 field) -Photo Taken Yes No -Epithelialization None Present -Tunneling No No -Undermining/Tunneling No No -Circular Undermining No No -Change in Wound Grade/Stage No -Exudate Amt Medium Medium -Exudate Type Serosanguineous Serosanguineous -Wound Margin Distinct, Distinct, Outline Outline Attached Attached -Granulation Amt Large (67-100%) Medium (34-66%) -Granulation Quality Red Greenevers -Slough/Fibrin Yes Yes -Necrosis Amt Small (1-33%) None Present (0 %) -Necrotic Tissue Type Eschar Adherent Slough -Structure Exposed N/A -Texture (Vangie-wound Skin Appearance) Assessed, No Abnormality, Scarring Assessed -Moisture (Vangie-wound Skin Appearance) Assessed,Dry/ No Abnormality, Scaly Assessed -Color (Vangie-wound Skin Appearance) Assessed No Abnormality, Assessed -Temperature (Vangie-wound Skin No Abnormality No Abnormality Appearance) (Pt Warm) (Pt Warm) -Tenderness on Palpation (Vangie-wound No No Skin Appearance) -Ulcer Cleansing Soap and Water Soap and Water -Foul Odor after Cleansing No No -Anesthetic Used 5% Lidocaine 4% Lidocaine Gel Solution WC - Nurse 2 - General Ulcer CM Notes Start: 06/25/22 10:22 Freq: Status: Active Protocol: Activity Type Activity Date Activity User E-sign Co-sign Detail Recorded Client Recorded Date Recorded By Document 07/09/22 11:55 PL [id number] 07/09/22 11:58 PL 07/09/22 11:55 Wound Center Nurse 2 #10- L HALLUX POST OP -Time 10:32 -Correct Patient Yes -Correct Side, Site, Position Yes -Correct Procedure Yes -Procedure Performed Yes -Type of Procedure Debridement -Clinical Debridement Subcutaneous -Tissue Removed Subcutaneous -Post Debridement (cm) - Length 0.5 -Post Debridement (cm) - Width 2.0 -Post Debridement (cm) - Depth 0.1 -Total Square (Post) (cm) 1.00 -Area of Debridement (cm) - Length 0.5 -Area of Debridement (cm) - Width 2.0 -Total Square (Area) (cm) 1.00 -Tunneling No -Undermining/Tunneling No -Circular Undermining No -Wound/Ulcer Outcome Not Healed -Ulcer Cleansing Rinsed/ Irrigated with Saline -Foul Odor after Cleansing No -Bioengineered Tissue No -Bleeding Controlled with Pressure -Treatment Response Procedure Tolerated Well -Debridement - Subq, 1st 20sq cm Yes Pain Scale: 0-10 Numeric Is Patient Pain Free? Yes BRAN - Nurse 3 - General Ulcer D/C NN Start: 06/25/22 10:22 Freq: Status: Active Protocol: Activity Type Activity Date Activity User E-sign Co-sign Detail Recorded Client Recorded Date Recorded By Document 06/25/22 12:25 KR [id number] 06/25/22 12:25 KR Document 07/02/22 10:48 DL [id number] 07/02/22 10:51 DL Document 07/09/22 10:53 MT [id number] 07/09/22 10:56 MT 06/25/22 07/02/22 07/09/22 12:25 10:48 10:53 Wound Care Nurse 3 #10- L HALLUX POST OP -Ulcer Cleansing Soap and Water -Foul Odor after Cleansing No -Primary Dressing Applied NonAdherent Contact Layer -Other Dressing betadine betadine, abd -Primary Dressing Covered/Secured with Dry Gauze & Dry Gauze,Dry Roll Gauze, Gauze & Roll Secured with Gauze,Secured Tape with Tape #9 Left Lower Leg Medial -Ulcer Cleansing Soap and Water -Foul Odor after Cleansing No -Primary Dressing Applied NonAdherent NonAdherent Contact Layer Contact Layer -Other Dressing betadine betadine adaptic -Primary Dressing Covered/Secured with Dry Gauze, Dry Gauze & Dry Gauze,Dry Secured with Roll Gauze, Gauze & Roll Tape Secured with Gauze,Secured Tape with Tape -Other Covering cancer in this leg Left -Tubular Bandage Single Layer -Size of Tubigrip Used Size E -Size E ($) 1 Treatment Response Procedure Tolerated Well Pain Scale: 0-10 Numeric Is Patient Pain Free? Yes Yes Yes WC - Visit Discharge Discharge Condition Stable Stable Ambulatory Status Ambulatory,Cane Ambulatory,Cane Transportation Private Auto Private Auto Accompanied by friend Assessment/Plan Assessment/Plan (1) Leg edema, left: CODE(S): R60.0 - Localized edema (2) Varicose veins of left lower extremity with ulcer of calf: CODE(S): I83.022 - Varicose veins of left lower extremity with ulcer of calf (3) Non-pressure chronic ulcer of left calf with fat layer exposed: CODE(S): L97.222 - Non-pressure chronic ulcer of left calf with fat layer exposed (4) Chronic venous insufficiency: (5) Non-pressure 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: CODE(S): L97.522 - Non-pressure 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 I discussed her case today. She is s/p removal of accessory bone left hallux and debridement with biopsy of left lower extremity ulceration. POV #4, DOS 06/12/2022, POD #34 I have previously discussed with her and her gear cutting machine operator the results of the lower extremity ulceration biopsy performed on 06/12/2022. 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 I recommended complete excision of this lesion and possibly including 2 lesions of the right lower extremity. I discussed these pathological results in detail today. I recommended consult with Plastic Surgeon to perform excision with possible regional lymph node biopsy and further work-up. Follow-up with oncologist was also recommended. Daughter was also informed of these results. She informs me that she has met with the plastic surgeon for excision of her cancerous lesions on 07/24/2022. 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 Surgical site of the left hallux has undergot dehiscence with some slight maceration secondary hitting the toe on the top with a walker smashing it between the walker and the surgical shoe. Site demonstrates mixed fiber granular tissue which underwent debridement as noted in the clinical panel above. No signs of infection. Site was cleansed with Dakin's to prevent infection and allowed to sit in place for 10 minutes. Local anesthetic was administered about the wound margin consisting of 5 cc 1% lidocaine plain. Site then underwent closure consisting of 3-0 Prolene. She continues to ambulate in a surgical shoe to the left foot to the heel. Surgical site dressed with Betadine Adaptic, 4 x 4 gauze, Kerlix, and an Francisco Javier wrap lightly rolled onto the foot. She was instructed to keep the dressings clean dry and intact and change daily with Betadine and dry sterile dressings. Patient to continue to elevate lower extremities in addition to wearing her Tubigrip compression stockings bilateral to aid in edema control.?I discussed with her that she is to continue to elevate her feet at times of rest. Patient voices understanding of this. The following work up and care recommendations were made: Dressing: Betadine, Steri-Strips, 4 x 4 gauze, Kerlix, and an Francisco Javier wrap to the left foot Wash: Do not get wet Tissue growth optimization: None Offload: Offloading dressing of the first metatarsophalangeal joint and left hallux Vascular: Vascular status intact with palpable pedal pulses. She had venous studies performed confirming reflux of the left great saphenous vein with no deep venous thrombosis bilaterally. Venous Doppler was /8/22 was negative for DVT. Edema: Elevation of the left lower extremity and right lower extremity control to control edema.?Patient instructed to wear double Tubigrip stockings Infection: No localized signs of infection Pain: May take [id number] Tylenol, safe oral anti-inflammatory use discussed. Host factors: Chronic venous insufficiency ? I answered all the patient's questions.? To return to the wound healing center in 1 week or call sooner if the patient has any questions or concerns. Note: [employer] speech recognition monument setter software was used to create portions of this document. Sound-alike and misspelled words, as well as other monument setter errors may be contained in the documentation.
[2022-07-16 11:33] VITALS: BP 146/63; PULSE 73; TEMP 36.2; BMI 25.7
--- NOTE | 2022-07-23 10:06 | PCM.WC.PN ---
History of Present Illness Date of Service: 07/23/22 Chief Complaint: Bilateral knee wound History of Wound: Ms. Castro is an 86-year-old who is currently being seen for below knee ulcers however I was asked to see due to nonhealing bilateral knee wound. Said to have been sustained about 2 weeks ago when she fell on her knees. Initially had apply Chuyita to the area however, worsening was noted this week. She states that there has been a lot of rubbing underneath her clothing and so dressing has not stayed on adequately. She feels well. Denies chills, fever or feeling of unwell. 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 She states she met with the plastic surgeon for excision of her cancerous lesion scheduled to undergo excision on 07/24/2022. Patient denies any constitutional symptoms. Patient has no further complaints. Objective Data Objective Data Vital Signs: Vital Signs Temp Pulse Resp BP O2 Del Method 97.2 F L 73 16 146/63 H Room Air 07/16/22 11:33 07/16/22 11:33 07/02/22 10:08 07/16/22 11:33 07/02/22 10:08 Oxygen Delivery Method Room Air Weight: 70.307 kg Body Mass Index (BMI) 25.7 Physical Exam Const alert, oriented x3 and no apparent distress General Appearance: cooperative HEENT normocephalic Eyes General Eye: normal appearance of both eyes Neck General: normal visual inspection Lymph Lymphatic: no lymphadenopathy noted and no lymphedema noted Resp normal respiratory effort Cardio regular rate and regular rhythm Extremity normal capillary refill, no joint enlargement, no calf tenderness and no pedal edema Extremity Narrative: Right Lower Extremity: foot and digits Positive for ROM (Decreased range of motion at the first metatarsophalangeal joint secondary to end-stage hallux limitus/rigidus) Left Lower Extremity: foot and digits Positive for ROM (Decreased range of motion at the first metatarsophalangeal joint secondary to end-stage hallux limitus/rigidus) Skin no rashes or lesions noted, skin turgor normal and no jaundice Skin Narrative: Skin is thin and friable/atrophic to bilateral lower extremities Wound Narrative: Left lower extremity: Skin intact with brawny discoloration and hemosiderin deposition secondary to venous insufficiency/stasis.? There is an ulceration left anterior medial lower extremity with granular wound base. No signs of infection. Surrounding skin is friable. Left hallux sub-IPJ surgical site demonstrates intact sutures with skin well coapted. No signs of infection. Right lower extremity: There are 2 eschars, 1 to the anterior medial leg and the second to the medial ankle. Eschars demonstrate some surrounding crusting/hyperkeratosis with elevation of the eschar. Eschars are stable currently but friable. Neuro moves all extremities Debridement Note Debridement Note No debridement was completed: No debridement was completed today Post-Debridement Measurements and Additional Note: Post-Debridement Measurements/Treatment - Nurse 1 - General Ulcer Assessment Start: 06/25/22 10:22 Freq: Status: Active Protocol: ALEX Activity Type Activity Date Activity User E-sign Co-sign Detail Recorded Client Recorded Date Recorded By Document 06/25/22 10:23 [id number] 06/25/22 10:23 Document 07/02/22 10:08 [facility] [id number] 07/02/22 10:20 [facility] Document 07/09/22 10:10 [facility] [id number] 07/09/22 10:21 [facility] Document 07/16/22 11:33 VA [id number] 07/16/22 11:40 [facility] 06/25/22 07/02/22 07/09/22 10:23 10:08 10:10 - Today's Visit Information Type of service Follow-up Visit Follow-up Visit Follow-up Visit (Physician/MILITARY COMMUNICATIONS SPECIALIST (Physician/MILITARY COMMUNICATIONS SPECIALIST (Physician/MILITARY COMMUNICATIONS SPECIALIST ) ) ) Arrival Mode Ambulatory Ambulatory,Cane Transfer Assistance None Accompanied by caregiver Patient Identification Verified (Name & Yes Yes Yes ) Patient Requires Transmission-Based No No Precautions Safety Precautions NA Height and Weight Body Mass Index (BMI) 25.7 25.7 25.7 BMI Classification Overweight Overweight Overweight Vital Signs Temperature (97.8 F-99.1 F) 97.5 F L 96.2 F L 97.2 F L Temperature Source Temporal Temporal Temporal Pulse Rate (60-100) 67 79 Pulse Location Monitor Monitor Respiratory Rate (12-18) 16 Respiratory rate source Observation Oxygen Delivery Method Room Air Blood Pressure (90/60-120/80) 132/78 H 144/60 H Blood Pressure Mean (mm Hg) 96 88 Source Monitor Monitor Position Sitting Sitting Blood Pressure Location Right Arm History Since Last Visit- (Skip if this is Patient's initial visit) Have you changed medications since your No No No last visit? Any new allergies or adverse reactions No No No Had a fall/change in ADL's that may No No No increase risk of falls Signs or symptoms of abuse and/or No No No neglect since last visit Have you been in the hospital since your No No No last visit? Has dressing in place as prescribed Yes Yes Yes Has compression in place as prescribed Yes N/A Yes Has offloadiing in place as prescribed N/A N/A N/A Experienced any changes in pain level or No No No management Left Footwear Regular Shoe Surgical Shoe Surgical Shoe with pressure with pressure relief insole relief insole Right Footwear Regular Shoe Regular Shoe Regular Shoe Pain Scale: 0-10 Numeric Is Patient Pain Free? Yes Yes No 07/16/22 11:33 WC - Today's Visit Information Type of service Follow-up Visit (Physician/MILITARY COMMUNICATIONS SPECIALIST ) Arrival Mode Ambulatory Transfer Assistance Accompanied by Patient Identification Verified (Name & Yes ) Patient Requires Transmission-Based No Precautions Safety Precautions NA Height and Weight Body Mass Index (BMI) 25.7 BMI Classification Overweight Vital Signs Temperature (97.8 F-99.1 F) 97.2 F L Temperature Source Temporal Pulse Rate (60-100) 73 Pulse Location Monitor Respiratory Rate (12-18) Respiratory rate source Oxygen Delivery Method Blood Pressure (90/60-120/80) 146/63 H Blood Pressure Mean (mm Hg) 90 Source Monitor Position Blood Pressure Location History Since Last Visit- (Skip if this is Patient's initial visit) Have you changed medications since your No last visit? Any new allergies or adverse reactions No Had a fall/change in ADL's that may No increase risk of falls Signs or symptoms of abuse and/or No neglect since last visit Have you been in the hospital since your No last visit? Has dressing in place as prescribed Yes Has compression in place as prescribed Yes Has offloadiing in place as prescribed N/A Experienced any changes in pain level or No management Left Footwear Regular Shoe Right Footwear Regular Shoe Pain Scale: 0-10 Numeric Is Patient Pain Free? Yes WC - Nurse 1 - General Ulcer Measurement Start: 06/25/22 10:22 Freq: Status: Active Protocol: Activity Type Activity Date Activity User E-sign Co-sign Detail Recorded Client Recorded Date Recorded By Document 07/02/22 10:08 [facility] [id number] 07/02/22 10:20 BM Document 07/09/22 10:10 [facility] [id number] 07/09/22 10:21 [place] Document 07/16/22 11:33 [place] [id number] 07/16/22 11:40 AK 07/02/22 07/09/22 07/16/22 10:08 10:10 11:33 Wound Center Nurse 1 #10- L HALLUX POST OP -Combined with other wound No No No -Current Size (cm) - Length 1 0.5 1.6 -Current Size (cm) - Width 0.8 2 0.6 -Current Size (cm) - Depth 0.2 0.1 0.1 -Total Square Cm 0.8 1.0 0.96 -Date of Last Picture (Recall this 07/02/22 field) -Photo Taken Yes Yes Yes -Epithelialization None Present -Tunneling No No No -Undermining/Tunneling No No No -Circular Undermining No No No -Change in Wound Grade/Stage No No -Exudate Amt Medium Medium Medium -Exudate Type Serosanguineous Serosanguineous Serosanguineous -Wound Margin Distinct, Distinct, Distinct, Outline Outline Outline Attached Attached Attached -Granulation Amt Small (1-33%) Medium (34-66%) Medium (34-66%) -Granulation Quality [place]el[place] Hazelwood Hazelwood,Red -Slough/Fibrin Yes Yes -Necrosis Amt Medium (34-66%) Medium (34-66%) -Necrotic Tissue Type Adherent Slough Adherent Slough -Structure Exposed N/A N/A -Texture (Vangie-wound Skin Appearance) Assessed, Assessed,Callus No Abnormality, Fluctuance Assessed -Moisture (Vangie-wound Skin Appearance) Assessed Assessed No Abnormality, Assessed -Color (Vangie-wound Skin Appearance) Assessed No Abnormality, No Abnormality, Assessed Assessed -Temperature (Vangie-wound Skin No Abnormality No Abnormality No Abnormality Appearance) (Pt Warm) (Pt Warm) (Pt Warm) -Tenderness on Palpation (Vangie-wound No No No Skin Appearance) -Ulcer Cleansing Soap and Water Soap and Water Rinsed/ Irrigated with Saline -Foul Odor after Cleansing No No No -Anesthetic Used 5% Lidocaine 5% Lidocaine 5% Lidocaine Gel Gel Gel -Wound Comment(s) SUTURES INTACT, SMALL OPEN AREA @ CENTER #9 Left Lower Leg Medial -Combined with other wound No No No -Current Size (cm) - Length 5.4 5 2.9 -Current Size (cm) - Width 4 3.5 2.2 -Current Size (cm) - Depth 0.1 0.1 0.1 -Total Square Cm 21.6 17.5 6.38 -Date of Last Picture (Recall this 07/02/22 field) -Photo Taken Yes No Yes -Epithelialization None Present -Tunneling No No No -Undermining/Tunneling No No No -Circular Undermining No No No -Change in Wound Grade/Stage No -Exudate Amt Medium Medium Medium -Exudate Type Serosanguineous Serosanguineous Serosanguineous -Wound Margin Distinct, Distinct, Distinct, Outline Outline Outline Attached Attached Attached -Granulation Amt Large (67-100%) Medium (34-66%) Large (67-100%) -Granulation Quality Red Hazelwood Hazelwood -Slough/Fibrin Yes Yes No -Necrosis Amt Small (1-33%) None Present (0 %) -Necrotic Tissue Type Eschar Adherent Slough -Structure Exposed N/A N/A -Texture (Vangie-wound Skin Appearance) Assessed, No Abnormality, Assessed, Scarring Assessed Friable -Moisture (Vangie-wound Skin Appearance) Assessed,Dry/ No Abnormality, No Abnormality, Scaly Assessed Assessed -Color (Vangie-wound Skin Appearance) Assessed No Abnormality, No Abnormality, Assessed Assessed -Temperature (Vangie-wound Skin No Abnormality No Abnormality No Abnormality Appearance) (Pt Warm) (Pt Warm) (Pt Warm) -Tenderness on Palpation (Vangie-wound No No No Skin Appearance) -Ulcer Cleansing Soap and Water Soap and Water Soap and Water -Foul Odor after Cleansing No No No -Anesthetic Used 5% Lidocaine 4% Lidocaine 5% Lidocaine Gel Solution Gel WC - Nurse 2 - General Ulcer CM Notes Start: 06/25/22 10:22 Freq: Status: Active Protocol: Activity Type Activity Date Activity User E-sign Co-sign Detail Recorded Client Recorded Date Recorded By Document 07/09/22 11:55 PL [id number] 07/09/22 11:58 PL Document 07/16/22 11:59 PL [id number] 07/16/22 12:00 PL 07/09/22 07/16/22 11:55 11:59 Wound Center Nurse 2 #10- L HALLUX POST OP -Time 10:32 10:25 -Correct Patient Yes Yes -Correct Side, Site, Position Yes Yes -Correct Procedure Yes Yes -Procedure Performed Yes Yes -Type of Procedure Debridement Debridement -Clinical Debridement Subcutaneous Subcutaneous -Tissue Removed Subcutaneous Subcutaneous -Post Debridement (cm) - Length 0.5 1.6 -Post Debridement (cm) - Width 2.0 0.6 -Post Debridement (cm) - Depth 0.1 0.1 -Total Square (Post) (cm) 1.00 0.96 -Area of Debridement (cm) - Length 0.5 1.6 -Area of Debridement (cm) - Width 2.0 0.6 -Total Square (Area) (cm) 1.00 0.96 -Tunneling No No -Undermining/Tunneling No No -Circular Undermining No No -Wound/Ulcer Outcome Not Healed Not Healed -Ulcer Cleansing Rinsed/ Rinsed/ Irrigated with Irrigated with Saline Saline -Foul Odor after Cleansing No No -Bioengineered Tissue No No -Bleeding Controlled with Pressure Pressure -Treatment Response Procedure Procedure Tolerated Well Tolerated Well -Debridement - Subq, 1st 20sq cm Yes Yes #9 Left Lower Leg Medial -Procedure Performed No Pain Scale: 0-10 Numeric Is Patient Pain Free? Yes Yes WC - Nurse 3 - General Ulcer D/C NN Start: 06/25/22 10:22 Freq: Status: Active Protocol: Activity Type Activity Date Activity User E-sign Co-sign Detail Recorded Client Recorded Date Recorded By Document 06/25/22 12:25 KR [id number] 06/25/22 12:25 KR Document 07/02/22 10:48 DL [id number] 07/02/22 10:51 DL Document 07/09/22 10:53 MT [id number] 07/09/22 10:56 MT Document 07/16/22 11:33 AK [id number] 07/16/22 11:40 AK 06/25/22 07/02/22 07/09/22 12:25 10:48 10:53 Wound Care Nurse 3 #10- L HALLUX POST OP -Ulcer Cleansing Soap and Water -Foul Odor after Cleansing No -Primary Dressing Applied NonAdherent Contact Layer -Other Dressing betadine betadine, abd -Primary Dressing Covered/Secured with Dry Gauze & Dry Gauze,Dry Roll Gauze, Gauze & Roll Secured with Gauze,Secured Tape with Tape #9 Left Lower Leg Medial -Ulcer Cleansing Soap and Water -Foul Odor after Cleansing No -Primary Dressing Applied NonAdherent NonAdherent Contact Layer Contact Layer -Other Dressing betadine betadine adaptic -Primary Dressing Covered/Secured with Dry Gauze, Dry Gauze & Dry Gauze,Dry Secured with Roll Gauze, Gauze & Roll Tape Secured with Gauze,Secured Tape with Tape -Other Covering cancer in this leg Left -Tubular Bandage Single Layer -Size of Tubigrip Used Size E -Size E ($) 1 Treatment Response Procedure Tolerated Well Vital Signs Temperature (97.8 F-99.1 F) Temperature Source Pulse Rate (60-100) Pulse Location Blood Pressure (90/60-120/80) Blood Pressure Mean (mm Hg) Source Pain Scale: 0-10 Numeric Is Patient Pain Free? Yes Yes Yes WC - Visit Discharge Discharge Condition Stable Stable Ambulatory Status Ambulatory,Cane Ambulatory,Cane Transportation Private Auto Private Auto Accompanied by friend Medication Reconcilliation completed & provided to patient/care provider Clinical Summary of Care Provided 07/16/22 11:33 Wound Care Nurse 3 #10- L HALLUX POST OP -Ulcer Cleansing -Foul Odor after Cleansing -Primary Dressing Applied -Other Dressing -Primary Dressing Covered/Secured with #9 Left Lower Leg Medial -Ulcer Cleansing -Foul Odor after Cleansing -Primary Dressing Applied -Other Dressing -Primary Dressing Covered/Secured with Dry Gauze & Roll Gauze, Secured with Tape -Other Covering Left -Tubular Bandage -Size of Tubigrip Used -Size E ($) Treatment Response Vital Signs Temperature (97.8 F-99.1 F) 97.2 F L Temperature Source Temporal Pulse Rate (60-100) 73 Pulse Location Monitor Blood Pressure (90/60-120/80) 146/63 H Blood Pressure Mean (mm Hg) 90 Source Monitor Pain Scale: 0-10 Numeric Is Patient Pain Free? Yes WC - Visit Discharge Discharge Condition Stable Ambulatory Status Ambulatory,Cane Transportation Private Auto Accompanied by aid Medication Reconcilliation completed & Yes provided to patient/care provider Clinical Summary of Care Provided Yes Assessment/Plan Assessment/Plan (1) Leg edema, left: CODE(S): R60.0 - Localized edema (2) Varicose veins of left lower extremity with ulcer of calf: CODE(S): I83.022 - Varicose veins of left lower extremity with ulcer of calf (3) Non-pressure chronic ulcer of left calf with fat layer exposed: CODE(S): L97.222 - Non-pressure chronic ulcer of left calf with fat layer exposed (4) Chronic venous insufficiency: (5) Non-pressure 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: CODE(S): L97.522 - Non-pressure 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 I discussed her case today. She is s/p removal of accessory bone left hallux and debridement with biopsy of left lower extremity ulceration. POV #5, DOS 06/12/2022, POD #41 I have previously discussed with her and her fiberglass luggage molder the results of the lower extremity ulceration biopsy performed on 06/12/2022. 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 I recommended complete excision of this lesion and possibly including 2 lesions of the right lower extremity. I discussed these pathological results in detail today. I recommended consult with Plastic Surgeon to perform excision with possible regional lymph node biopsy and further work-up. Follow-up with oncologist was also recommended. Daughter was also informed of these results. She informs me that she has met with the plastic surgeon and is set to undergo excision of her cancerous lesions on 07/24/2022. 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 Sutures intact to the left hallux with skin well coapted. No signs of infection. She continues to ambulate in a surgical shoe to the left foot to the heel. Surgical site dressed with Betadine Adaptic, 4 x 4 gauze, Kerlix, and an Francisco Javier wrap lightly rolled onto the foot. She was instructed to keep the dressings clean dry and intact and change daily with Betadine and dry sterile dressings. Discussed removal of sutures in 2 weeks. Patient to continue to elevate lower extremities in addition to wearing her Tubigrip compression stockings bilateral to aid in edema control.?I discussed with her that she is to continue to elevate her feet at times of rest. Patient voices understanding of this. The following work up and care recommendations were made: Dressing: Betadine, Adaptic , 4 x 4 gauze, Kerlix, and an Francisco Javier wrap to the left foot Wash: Do not get wet Tissue growth optimization: None Offload: Offloading dressing of the first metatarsophalangeal joint and left hallux Vascular: Vascular status intact with palpable pedal pulses. She had venous studies performed confirming reflux of the left great saphenous vein with no deep venous thrombosis bilaterally. Venous Doppler was ordered 07/02/22 was negative for DVT. Edema: Elevation of the left lower extremity and right lower extremity control to control edema.?Patient instructed to wear double Tubigrip stockings Infection: No localized signs of infection Pain: May take [id number] Tylenol, safe oral anti-inflammatory use discussed. Host factors: Chronic venous insufficiency ? I answered all the patient's questions.? To return to the wound healing center in 1 week or call sooner if the patient has any questions or concerns. Note: sendwithus speech recognition glaze carrier software was used to create portions of this document. Sound-alike and misspelled words, as well as other glaze carrier errors may be contained in the documentation.
[2022-07-23 11:14] VITALS: BP 155/79; PULSE 77; TEMP 35.9; BMI 25.7
== END 2022-07-25 23:59 | disposition home or self-care (01) ==
LOC: WC 10:00
PROVIDERS: PCP Family Medicine; Referring Provider Student in an Organized Health Care Education/Training Program; Visit Provider Student in an Organized Health Care Education/Training Program
DX: I83.022 Varicose veins of left lower extremity with ulcer of calf (principal); L97.522 Non-pressure 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; L97.222 Non-pressure chronic ulcer of left calf with fat layer exposed; I87.2 Venous insufficiency (chronic) (peripheral); R60.0 Localized edema; I83.92 Asymptomatic varicose veins of left lower extremity
CPT/HCPCS: 11042; 93970; 99213; G0463

== ENCOUNTER 2022-07-24 12:50 | Observation (INO) | payer MEDICARE, OTHER, SELFPAY ==
--- NOTE | 2022-07-23 22:34 | PCM.HP.BLA ---
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 While treating these chronic ulcers, the left leg ulcer was increasing in size and there was concern about carcinoma.? A biopsy was done on 06/12/22.? 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 The patient first noticed this ulcer about 6 months ago.? She also has concerns about two lesions on her right medial leg and right medial ankle that have increased in size over the last several months.? They have become more raised in configuration and look like cutaneous horns.? She denies fever.? She denies trauma. She denies any infection.? She denies bleeding. ? She had a skin cancer removed in the past using Moh's technique.? She presents today for further evaluation and treatment. PAST MEDICAL HISTORY Ambulates with cane Anxiety Arthritis Asthma Back pain Breast lump Carpal tunnel syndrome COPD (chronic obstructive pulmonary disease) Emphysema, unspecified Former smoker Gastric reflux High cholesterol History of CHF (congestive heart failure) History of edema History of hiatal hernia History of pain when walking History of ulceration Hx of cardiac pacemaker Hypertension IBS (irritable bowel syndrome) Incontinence of urine Loss of hearing Neoplasm of skin of ankle Neoplasm of skin of lower leg On home oxygen therapy Open wound Osteoarthritis Personal history of skin cancer Restless legs Rheumatoid arthritis Skin cancer Squamous cell carcinoma of left lower leg Unspecified open wound, left knee, initial encounter Unspecified open wound, right knee, initial encounter Walker as ambulation aid Wears glasses Wears partial dentures PAST SURGICAL HISTORY History of lumbar laminectomy Hx of colonoscopy Hx of left cataract extraction Hx of left knee surgery Hx of right cataract extraction Hx of tonsillectomy Hx of total hip arthroplasty Hx of total hip arthroplasty ALLERGIES Sulfa (Sulfonamide Antibiotics) MEDICATIONS aspirin calcium carbonate hydroxychloroquine lactobacillus (Probiotic) magnesium bvnmvjix-dom-vcdvr ktuc-yssmvcpo-qbxdhm (Centrum Silver) simvastatin cholecalciferol (vitamin D3) fluticasone mrq-sicbkct-bqxsnk inhalat powder (Trelegy Ellipta) folic acid methotrexate sodium oxycodone-acetaminophen tramadol-acetaminophen amlodipine atenolol mirabegron omeprazole pramipexole trazodone FAMILY HISTORY Other - Arthritis, Cancer, Heart disease, High cholesterol, Myocardial infarction, Osteoarthritis, Respiratory disease SOCIAL HISTORY Smoking Status:? Former smoker alcohol intake:? current details:? Special Occasions substance use type:? does not use REVIEW OF SYSTEMS General - Denies fever and weight loss.? Has fatigue. Eyes - Denies cataracts and glaucoma. ENT - Denies nasal congestion and sore throat. Endocrine - Has excessive thirst and urination. Skin - Has personal history of skin cancer.? Had an enlarging ulcerated lesion left anteromedial leg that was biopsied on 06/12/22 and it showed an invasive well-differentiated squamous cell carcinoma.? She also has two enlarging cutaneous horn lesions right medial leg and right medial ankle. Musculoskeletal - Has joint pain, joint stiffness, weakness of muscles and joints, back pain, and arthritis. Neuro - Denies headaches. Cardiovascular - Denies chest pain, fatigue, and shortness of breath with exertion.? Has pacemaker. Psych - Denies anxiety and depression. Respiratory - Denies chronic cough and shortness of breath.? Has COPD.? Patient is a former smoker. Gastrointestinal - Denies nausea, vomiting, diarrhea.? Has constipation. Has GERD.? Has IBS. Hematologic - Denies abnormal bruising and bleeding. Genitourinary - Denies hematuria and urinary frequency. PHYSICAL EXAMINATION General - Alert and Oriented. HEENT - PERRL. EOMI.? Throat is clear.? No suspicious lesions noted. Neck - Supple and nontender.? No cervical adenopathy.? No suspicious lesions noted. Lungs - Clear to auscultation. Heart - Regular rate and rhythm. Abdomen - Soft and nondistended. Extremities - FROM. No axillary adenopathy.? Radial pulses are palpable.? No inguinal adenopathy.? Dorsalis pedis pulses are palpable? On the left anteromedial leg is a nonhealing ulcer that measures 6.5 x 4.5 cm.? Has irregular borders.? Tender to palpation.? Biopsy done on 06/12/22 showed an invasive well-differentiated squamous cell carcinoma. On the right medial leg is a cutaneous horn lesion that measures 2 cm.? Has irregular borders.? Lesion is firm.? No ulceration.? Lesion is nontender. On the right medial ankle is a cutaneous horn lesion that measures 2.5 cm.? Has irregular borders.? Lesion is firm.? No ulceration.? Lesion is nontender. Neuro - CN II-XII grossly intact. Psych - Normal mood and affect. ASSESSMENT 1.? 6.5 cm nonhealing ulcerated invasive well-differentiated squamous cell carcinoma. 2.? 2 cm cutaneous horn lesion right medial leg. 3.? 2.5 cm cutaneous horn lesion right medial ankle. 4.? Personal history of skin cancer. 5.? Former smoker. PLAN Medical records reviewed. Pathology reviewed. Patient has a nonhealing ulcerated invasive well-differentiated squamous cell carcinoma.? She has two cutaneous horn lesions on her right medial leg and right medial ankle. Recommend excision of the squamous cell carcinoma left anteromedial leg with a margin in all directions.? Will send the lesion to Pathology for analysis to rule out carcinoma at the margins.? Reconstruction will be with skin grafting. Recommend excision of the two cutaneous horn lesions as a full thickness excision since carcinoma can be seen at the base.? Will send the lesions to Pathology for analysis to rule out carcinoma. ? If no carcinoma is present, then reconstruction will be with a local skin flap versus skin grafting. If carcinoma is present, then further excision will be done with a margin in all directions.? Reconstruction would be skin grafting. Surgery will be done under general anesthesia with a surgical observation overnight stay in the hospital. Patient was informed of the risks and complications of the procedure including alternatives to surgery.? These were discussed with the patient personally.? Patient voices understanding and wishes to proceed. Some of the risks and complications were included in a form from the [employer] [employer]. Assessment & Plan Assessment/Plan (1) Squamous cell carcinoma of left lower leg: (2) Neoplasm of skin of lower leg: (3) Neoplasm of skin of ankle: (4) Personal history of skin cancer:
[2022-07-24] VITALS (14 sets, daily range): BP systolic 130–156; BP diastolic 52–91; PULSE 58–80; RESP 16–18; TEMP 36.4–37.1; O2SAT 92–100; BMI 25.9
--- NOTE | 2022-07-24 | LES_PTH ---
PATIENT: JUSTIN VALDOVINOS LOC: [facility] U#:[id number] AGE/SX: 87/F ROOM: [facility] [place] RE07/24/[address]: Dr. Luis F Bergman MD : [id number] BED: 1 DIS: 07/26/2022 SPEC #: [id number] RECD: 07/24/22 08:18 STATUS: GUERO REJessica #: [id number] DIMA: 07/24/22 00:[address]: Luis F Bergman DEPT: SURGICAL PATHOLOGY RECD BY: Amy Monteiro ENTERED: 07/24/22 09:02 SP TYPE: Lesion OTHR DR: Dr. Carson Kennedy MD Tissues: A - Skin of leg, NOS B - Skin of ankle and foot C - Skin of leg, NOS D - Skin of leg, NOS E - Skin of ankle and foot Procedures: Frozen Section (charge) Frozen Section Add'l ([facility]) Surgery Specimen Level IV HEADER OPERATION: Excision squamous cell carcinoma left anteromedial leg PRE-OP DIAGNOSIS: 6.5 cm nonhealing ulcerated invasive well-differentiated squamous cell carcinoma; 2 cm cutaneous horn lesion right medial leg squamous cell carcinoma; 2.5 cm cutaneous horn lesion right medial ankle squamous cell carcinoma TISSUE SUBMITTED: A ? 2 cm cutaneous horn lesion right medial leg, suture at 12 o?clock, FS, B ? 2.5 cm cutaneous horn lesion right medial ankle, suture at 12 o?clock, FS, C ? Nonhealing ulcerated invasive well-differentiated squamous cell carcinoma left anterior medial leg, suture at 12 o?clock, D ? Right medial leg squamous cell carcinoma, suture at 12 o?clock, E ? Right medial ankle squamous cell carcinoma, suture at 12 o?clock FROZEN SECTION DIAGNOSIS A. Right medial leg lesion, biopsy: Invasive well differentiated squamous cell carcinoma, completely excised in the planes of section examined. B. Right medial ankle lesion, biopsy: Invasive squamous cell carcinoma. SJ:jeremy 07/24/2022 MICROSCOPIC DIAGNOSIS A. Right medial leg lesion, biopsy: Invasive well-differentiated squamous cell carcinoma. Solar elastosis and actinic change. Margins of excision are free of carcinoma. B. Right medial ankle skin lesion, biopsy: Invasive well-differentiated squamous cell carcinoma. Solar elastosis and actinic change. C. Skin lesion of left anterior medial leg, re-excision: Invasive well-differentiated squamous cell carcinoma with associated ulceration. See cancer synoptic report below. D. Right medial leg squamous cell carcinoma, re-excision: Cutaneous ulceration consistent with recent biopsy. Solar elastosis and actinic change. No evidence of malignancy. E. Right medial ankle squamous cell carcinoma, excision: Actinic change. Focal hyperkeratosis. Solar elastosis. No evidence of malignancy. AM:jeremy 07/28/2022 COMMENT SQUAMOUS CELL CARCINOMA SUMMARY Procedure ? excision, wide Tumor focality ? unifocal Multiple primary sites ? not applicable Tumor site ? anterior medial leg Tumor laterality - left Tumor size ? 4.5 x 3.5 cm Histologic Type ? squamous cell carcinoma, not otherwise specified Histologic Grade ? Grade 1, well differentiated Tumor depth of invasion ? 4.5 mm Anatomic level ? V (carcinoma invades subcutaneum) Lymphvascular invasion ? not identified Perineural invasion - not identified Margins: Margin status for invasive tumor ? All margins negative for invasive tumor. Exact distance ? 4.5 mm from 9-12 o?clock margin. Regional lymph nodes ? not applicable Distant metastasis ? not applicable Additional findings ? actinic change and solar elastosis. PATHOLOGIC STAGE: pT3 pNx pMx The above summary is in compliance with [employer] (CAP) Cancer Protocols Checklist and [place] [employer] on Cancer (AJCC), Staging Manual, 8th Ed. Reference is made to the patient's previous left leg wound biopsy ([id number]) with invasive well differentiated squamous cell carcinoma. MICROSCOPIC DESCRIPTION Slides are reviewed. GROSS DESCRIPTION A - Received fresh for frozen section diagnosis labeled with the patient's name is a specimen designated right medial leg lesion. The specimen consists of a piece of velásquez-brown skin with cutaneous horn-like lesion measuring 3 x 2 x 0.6 cm. The specimen is oriented as suture at 12 o?clock. The specimen is inked as follows: 12 o?clock ? yellow, 6 o?clock ? green, 3 o?clock ? black and 9 o?clock ? blue. The specimen serially sectioned and submitted entirely for frozen section diagnosis in three cassettes as follows: 1 ? 12 and 6 o?clock margins, 2 & 3 ? rest of the specimen. / SJ: 07/24/2022 B - Received fresh for frozen section diagnosis labeled with the patient's name is a specimen designated right medial ankle lesion. The specimen consists of a piece of velásquez-brown skin with cutaneous horn-like lesion measuring 4 x 3 x 2 cm. The specimen is oriented as suture at 12 o?clock. The specimen is inked as follows: 12 o?clock ? yellow, 6 o?clock ? green, 3 o?clock ? black and 9 o?clock ? blue. The specimen serially sectioned and submitted entirely for frozen section diagnosis in three cassettes as follows: 1??frozen section, 12 and 6 o?clock margins, 2 & 3 ? frozen section, central portion of tumor including 3?and 9 margins, 4-6 - rest of the specimen (cassette 6 predominantly consists of cutaneous horn portion of the lesion. / SJ: 07/24/2022 C - Received in fixative is one container labeled with the patient's name and designated squamous cell carcinoma tissue left anterior medial leg, suture at 12 o'clock. The specimen consists of a round piece of velásquez-white skin measuring 6.5 x 5.5 cm and up to 0.7 cm in thickness. An ulcerated area is noted on the surface measuring 4.5 x 3.5 cm. A suture is also present identifying the 12 o?clock position. The specimen is inked as follows: 12 to 3 o'clock - black, 3 to 6 o'clock - blue, 6 to 9 o'clock - green, 9 to 12 o'clock - yellow, and deep margin - red. Mold Clamper sections are submitted in 12 cassettes. / SJ: 07/24/2022 D - Received in fixative is one container labeled with the patient's name and designated right medial leg squamous cell carcinoma, suture at 12 o'clock. The specimen consists of a ring-shaped piece of velásquez-white skin measuring 3.7 x 3.2 cm and up to 0.4 cm in thickness. The pedicle rim measures 0.5 to 0.6 cm in thickness. The specimen is inked as follows: 12 to 3 o'clock - black, 3 to 6 o'clock - blue, 6 to 9 o'clock - green, 9 to 12 o'clock - yellow, and inner ring-shaped defect - red. The specimen is submitted in four cassettes as follows: 1 ? 12 to 3 o?clock, 2 ? 3 to 6 o?clock, 3 ? 6 to 9 o?clock and 4 ? 9 to 12 o?clock. / SJ:jeremy 07/24/2022 E - Received in fixative is one container labeled with the patient's name and designated right medial ankle squamous cell carcinoma, suture at 12 o'clock. The specimen consists of a ring-shaped piece of velásquez-white skin measuring 5 x 3.5 x 0.4 cm. The specimen is inked as follows: 12 to 3 o'clock - black, 3 to 6 o'clock - blue, 6 to 9 o'clock - green, 9 to 12 o'clock - yellow, and inner ring-shaped defect - red. The specimen is submitted in four cassettes as follows: 1 ? 12 to 3 o?clock, 2 ? 3 to 6 o?clock, 3 ? 6 to 9 o?clock and 4 ? 9 to 12 o?clock. / SJ:jeremy 07/24/2022 TC:0 CPT: 18477 x5, 99120 x2, 65197 x7
[2022-07-24] MEDS: Lactated Ringers 1,000 ML 15 ML IV (06:27)
[2022-07-24] MEDS: Cefazolin 2 GM in 0.9% Normal Saline 100 ML IV (07:25)
[2022-07-24] MEDS: Lidocaine 2% /Epi 1:100 (20ml) 20 ML VIAL ×2 (07:26→08:39)
[2022-07-24] MEDS: Mupirocin Ointment 22gm Tube 1 APPLIC (08:30)
--- NOTE | 2022-07-24 10:16 | PCM.OPRPT ---
Problems Associated Problem List Diagnoses (1) Squamous cell carcinoma of left lower leg: (2) Neoplasm of skin of ankle: (3) Neoplasm of skin of lower leg: (4) Personal history of skin cancer: (5) Former smoker: (6) Squamous cell carcinoma of right lower leg: Report of Operation Date of Procedure: 07/24/22 Pre-Operative Diagnosis: 1. 6.5 cm nonhealing ulcerated invasive well-differentiated squamous cell carcinoma. 2. 2 cm cutaneous horn lesion right medial leg. 3. 2.5 cm cutaneous horn lesion right medial ankle. 4. Personal history of skin cancer. 5. Former smoker. Post-Operative Diagnosis: 1. 6.5 cm nonhealing ulcerated invasive well-differentiated squamous cell carcinoma. 2. 2 cm squamous cell carcinoma right medial leg. 3. 2.5 cm squamous cell carcinoma right medial ankle. 4. Personal history of skin cancer. 5. Former smoker. Surgery/Procedure Performed:: 1. Excision 6.5 cm nonhealing ulcerated invasive well-differentiated squamous cell carcinoma with STSG reconstruction from the lower anterior abdominal wall (63 cm2). 2. Excision 2 cm squamous cell carcinoma right medial leg with STSG reconstruction from the lower anterior abdominal wall (16 cm2). 3. Excision 2.5 cm squamous cell carcinoma right medial ankle with STSG reconstruction from the lower anterior abdominal wall (24.75 cm2). 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 While treating these chronic ulcers, the left leg ulcer was increasing in size and there was concern about carcinoma.? A biopsy was done on 06/12/22.? 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 The patient first noticed this ulcer about 6 months ago.? She also has concerns about two lesions on her right medial leg and right medial ankle that have increased in size over the last several months.? They have become more raised in configuration and look like cutaneous horns.? She denies fever.? She denies trauma. She denies any infection.? She denies bleeding. ? She had a skin cancer removed in the past using Moh's technique.? She presents today for further evaluation and treatment. Patient was informed of the risks and complications of the procedure including alternatives to surgery. These were discussed with the patient personally. Patient voices understanding and wishes to proceed. Some of the risks and complications were included in a form from the [employer]. Frozen section cutaneous horn lesion right medial leg - squamous cell carcinoma. Frozen section cutaneous horn lesion right medial ankle - squamous cell carcinoma. I used AxioFill Placental Connective Tissue Powder, (500 mg to the left leg skin graft). Catalog Number - [id number]. Lot Number - [id number]. Expiration - February 23, 2027. I used AxioFill Placental Connective Tissue Powder, (250 mg to the right leg skin grafts). Catalog Number - [id number]. Lot Number - [id number]. Expiration - January 23, 2027. I used Pete absorbable hemostat, (I used 2 vials in the abdominal wall). Reference Number - [id number]. Lot Number - [id number]. Expiration - January 20, 2027. Reference Number - [id number]. Lot Number - [id number]. Expiration - February 19, 2027. Size of the skin graft left anteromedial leg - 9 x 7 cm. Size of the skin graft right medial leg - 4 x 4 cm. Size of the skin graft right medial ankle - 4.5 x 5.5 cm. Surgeon: Luis F Bergman MD saw handle assembler: Radha Saavedra RNFA Type of Anesthesia: General Anesthesiologist: Dedrick Mays MD and Mag Kirby CRNA Specimen's removed: 1. Cutaneous horn lesion right medial leg to Pathology as a frozen section. 2. Cutaneous horn lesion right medial ankle to Pathology as a frozen section. 3. Squamous cell carcinoma left anteromedial leg to Pathology. 4. Squamous cell carcinoma right medial leg to Pathology. 5. Squamous cell carcinoma right medial ankle to Pathology. Drains: Navin. Estimated Blood Loss (mL): 50. Description of Procedure: Patient was taken to OR in supine position and was placed under general anesthesia. The legs and abdominal wall areas were prepped and draped in the usual fashion. SCD's were not placed for DVT prophylaxis because surgery was being done on both legs. Will give chemprophylaxis. Perioperative antibiotics were given intravenously. Using xylocaine with epinephrine, the cutaneous horn lesions right medial leg and right medial ankle were infiltrated. After waiting 5 minutes for the anesthetic to take effect, I proceeded with excision of these lesions in a circular fashion down into the subcutaneous tissue. A suture was placed at 12 oclock position for pathology orientation. The lesions were sent to Pathology as frozen sections to rule out carcinoma. I marked out the ulcerated squamous cell carcinoma on the left anteromedial leg with a 1 cm margin in all directions. The carcinoma was excised into the subcutaneous tissue. A suture was marked at 12 oclock position for pathology orientation. The lesion was sent to Pathology for analysis to rule out carcinoma. The size of the wound defect left anteromedial leg was 9 x 7 cm. At this time, the frozen sections came back. Both lesions right medial leg and right medial ankle were squamous cell carcinomas. Therefore, additional margin of tissue will be excised. After excising this extra margin (1 cm in all directions), I placed a suture at 12 oclock position for pathology orientation. The lesions were then sent to Pathology for analysis to rule out carcinoma at the margins. The size of the carcinoma defect right medial leg was 4 x 4 cm. The size of the carcinoma defect right medial ankle was 4.5 x 5.5 cm. The size of the carcinoma defect left anteromedial leg was 9 x 7 cm. I harvested the skin for the grafting from her lower anterior abdominal wall. A horizontal elliptical marking was made and infiltrated with Xylocaine and epinephrine. Incisions were made and using a scalpel I removed the subcutaneous tissue from the undersurface of the dermis and included some of the deeper dermis thus fashioning a thick split thickness skin graft. I placed the skin graft on stretch and using a 15 blade, the thick split thickness skin graft was meshed. The skin graft was placed in saline. For the abdominal wall donor site, I excised some of the deeper subcutaneous tissue to aid in wound closure. Hemostasis was obtained using electrocautery. The wound was irrigated with saline. I placed a size 15 Navin drain into the wound from a separate stab incision laterally. The drain was secured to the skin with 3-0 Nylon purse string suture. I sprayed Pete absorbable hemostat into the abdominal wall wound to minimize seroma formation. I used 2 vials. I closed the wound in a layered fashion, using 3-0 Monocryl interrupted suture for the Justine's fascia. The deep dermis and subcutaneous tissue was approximated with 3-0 Monocryl interrupted suture. The skin was approximated with 3-0 V lock unidirectional barbed running subcuticular suture and followed by Histoacryl skin tissue adhesive. The thick split thickness skin grafts were placed in the three carcinoma wounds (one on the left and two on the right). They were secured to the skin edge with surgical clips. On the left leg, I sprayed some AxioFill into the base of the skin graft wound prior to suturing the skin graft to the wound. 3-0 Chromic sutures were used for central quilting stabilization. The size of the skin graft left anteromedial leg was 9 x 7 cm or 63 cm2. The size of the skin graft right medial leg was 4 x 4 cm or 16 cm2. The size of the skin graft right medial ankle was 4.5 x 5.5 cm or 24.75 cm2. I also sprayed AxioFill into both carcinoma wound defects prior to securing the thick split thickness skin graft to the skin edges with surgical clips. I used 500 mg of AxioFill Placental connective tissue powder on the left leg skin graft and 250 mg of AxioFill Placental connective tissue powder on the right leg skin grafts. This was done to improve the healing of the skin grafts. After the skin grafts were placed, I placed antibiotic ointment on the skin graft followed by Xeroform gauze. Kerlix gauze was wrapped around the legs followed by a compression mary ellen wrap. Patient tolerated the procedure well and was sent to PACU in satisfactory condition. Patient will be sent upstairs for continued postop care. Anticipate being discharged tomorrow. She will need to be steady on her feet when ambulating before discharge. Grafts/Implants Used: AxioFill 250mg and 500 mg, and Pete. Procedure Start Time: 07:57 Procedure Stop Time: 10:10 Complications None. Admit VTE Documentation VTE Present on Admission: No VTE Mechan Device Prophylaxis: None VTE Pharm Prophylaxis ordered?: Yes Addendum Addendum: Surgery Charges CPT - 25830 ICD-10 - C44.729, Z85.828, Z87.891 63506 C44.722, D49.2, Z85.828, Z87.891 68514 C44.722, D49.2, Z85.828, Z87.891 07552 C44.729, C44.722, D49.2, Z85.828, Z87.891 60833 C44.729, C44.722, D49.2, Z85.828, Z87.891
[2022-07-24] MEDS: HYDROmorphone 1 MG/ML Syringe IV (13:50)
--- NOTE | 2022-07-24 14:15 | NUR.TO.PHY ---
unable to insert norris cath, placed 2 with no urinary return will attempt later, or assist her to bedside commode.
[2022-07-24] MEDS: Cefazolin 1 GM/50 ML BAG IV ×2 (15:00→21:03)
[2022-07-24] MEDS: Juven (unflavored) Packet 1 PACKET PO (16:54)
[2022-07-24] MEDS: Calcium (Elemental) 500 MG Tablet 250 MG PO (16:54)
[2022-07-24] MEDS: Hydroxychloroquine 200 MG Tablet PO (16:55)
[2022-07-24] MEDS: traMADol 50 MG Tablet PO (19:59)
[2022-07-24] MEDS: Albuterol 2.5 MG/3 ML VIAL.NEB. INHALATION (20:53)
[2022-07-24] MEDS: Budesonide Respules 0.5 MG/2 ML AMPUL.NEB. INHALATION (20:53)
[2022-07-24] MEDS: Pantoprazole Sodium 40 MG Tablet PO (21:03)
[2022-07-24] MEDS: Atorvastatin Calcium 10 MG Tablet PO (21:03)
[2022-07-24] MEDS: Magnesium Chloride 64 MG Delay Rel.Tablet 128 MG PO (21:03)
[2022-07-24] MEDS: traZODone 50 MG Tablet PO (21:04)
[2022-07-24] MEDS: Docusate Sodium 100 MG Capsule PO (21:04)
[2022-07-24] MEDS: Heparin Injection (Vial) 5,000 UNIT/ML VIAL 5000 UNIT SC (21:04)
[2022-07-24] MEDS: Pramipexole Di-HCl 1 MG Tablet PO (21:05)
--- NOTE | 2022-07-24 23:26 | CPS ---
Patient did not want to use the IS at this time
[2022-07-25] VITALS (10 sets, daily range): BP systolic 114–142; BP diastolic 33–65; PULSE 64–80; RESP 16–24; TEMP 36.6–37.2; O2SAT 92–99
[2022-07-25] MEDS: traMADol 50 MG Tablet PO ×2 (02:16→18:03)
[2022-07-25] MEDS: Lactated Ringers 1,000 ML 60 ML IV ×2 (03:20→22:04)
[2022-07-25] MEDS: Cefazolin 1 GM/50 ML BAG IV (05:14)
[2022-07-25 06:36] LABS: Hematocrit 35.1 % (37-47); Hemoglobin 10.8 g/dL (12.0-15.0); Mean Corp Hgb Conc 30.8 g/dL (32-36); Mean Corpuscular Volume 103.8 fL (81-99); Mean Platelet Vol. 9.8 fl (6.2-12.0); Platelet Count 194 K/mm3 (150-450); RBC Distribution Width CV 14.5 % (11.6-14.6); Red Blood Count 3.38 M/mm3 (4.2-5.4); White Blood Count 9.3 K/mm3 (4.4-11.0)
[2022-07-25] MEDS: Budesonide Respules 0.5 MG/2 ML AMPUL.NEB. INHALATION ×2 (07:17→19:29)
[2022-07-25] MEDS: Albuterol 2.5 MG/3 ML VIAL.NEB. INHALATION ×3 (07:17→19:29)
[2022-07-25 07:19] LABS: Anion Gap 2 (5-15); BUN 22 mg/dL (7-18); BUN/Creat Ratio 39.7 RATIO (10-20); Calcium,Total 7.8 mg/dL (8.5-10.1); Chloride 103 mmol/L (98-107); Creatinine, Serum 0.55 mg/dL (0.55-1.02); EST Glomerular Filtration Rate 111 mL/min (>60); Est Glom Filt Rate - Afr Amer 134 mL/min (>60); Estimated Creatinine Clearance 37.01 ml/min; Glucose 102 mg/dL (74-106); Potassium 4.3 mmol/L (3.5-5.1); Prealbumin 15.8 mg/dL (20.0-40.0); Sodium Level 134 mmol/L (136-145)
[2022-07-25] MEDS: Juven (unflavored) Packet 1 PACKET PO ×2 (08:36→16:13)
[2022-07-25] MEDS: Hydroxychloroquine 200 MG Tablet PO ×2 (08:37→16:14)
[2022-07-25] MEDS: Multivitamins,Ther W-Minerals Tablet 1 TABLET PO (08:37)
[2022-07-25] MEDS: Cholecalciferol (VIT D3) 25 MCG TABLET (1,000 UNITS) 50 MCG PO (08:37)
[2022-07-25] MEDS: Mirabegron 25 MG TAB.ER.24H PO (08:37)
[2022-07-25] MEDS: Magnesium Chloride 64 MG Delay Rel.Tablet 128 MG PO ×2 (08:38→22:02)
[2022-07-25] MEDS: Docusate Sodium 100 MG Capsule PO ×2 (08:38→22:02)
[2022-07-25] MEDS: Calcium (Elemental) 500 MG Tablet 250 MG PO ×2 (08:39→16:13)
[2022-07-25] MEDS: Pantoprazole Sodium 40 MG Tablet PO ×2 (08:39→22:02)
[2022-07-25] MEDS: Heparin Injection (Vial) 5,000 UNIT/ML VIAL 5000 UNIT SC ×2 (10:29→22:02)
[2022-07-25] MEDS: Pramipexole Di-HCl 0.5 MG Tablet PO (10:31)
[2022-07-25] MEDS: amLODIPine 2.5 MG Tablet PO (10:32)
[2022-07-25] MEDS: Folic Acid 1 MG Tablet 2 MG PO (11:37)
[2022-07-25] MEDS: Atenolol 50 MG Tablet 25 MG PO (11:39)
--- NOTE | 2022-07-25 12:09 | PCM.PN.SRG ---
Subjective Subjective Postop #1 Patient has incisional discomfort. Was unsteady on her feet with ambulation today. Objective Data Objective Data Vital Signs: Vital Signs Temp Pulse Resp BP Pulse Ox O2 Del Method O2 Flow Rate 98.9 F 73 18 142/62 H 99 Nasal Cannula 2 07/25/22 10:20 07/25/22 10:20 07/25/22 10:20 07/25/22 10:20 07/25/22 10:20 07/25/22 10:20 07/25/22 10:20 Oxygen Flow Rate (L/min) 2 Oxygen Delivery Method Nasal Cannula Weight: 156 lb Body Mass Index (BMI) 25.9 Intake & Output: Intake and Output for Last 24 Hours 07/23/22 07/24/22 07/25/22 23:59 23:59 23:59 Intake Total 1210 / 1210 50 / 50 Output Total 5 / 5 738 / 738 Balance 1205 / 1205 -688 / -688 Drainage 85 ml yesterday, 58 ml today. Lab / Micro Data Attestation: I reviewed the patient's lab results. Result Diagrams: 07/25/22 06:05 07/25/22 06:05 Labs: Laboratory Results - last 24 hr 07/25/22 06:05: WBC 9.3, RBC 3.38 L, Hgb 10.8 L, Hct 35.1 L, MCV 103.8 H, MCH 32.0, MCHC 30.8 L, RDW Std Deviation 55.0 H, RDW Coeff of Calvin 14.5, Plt Count 194, MPV 9.8 07/25/22 06:05: Sodium 134 L, Potassium 4.3, Chloride 103, Carbon Dioxide 29.0, Anion Gap 2 L, BUN 22 H, Creatinine 0.55, Estim Creat Clear Calc 37.01, Est GFR (MDRD) Af Amer 134, Est GFR (MDRD) Non-Af 111, BUN/Creatinine Ratio 39.7 H, Glucose 102, Calcium 7.8 L, Prealbumin 15.8 L Physical Exam Narrative PHYSICAL EXAMINATION General - Alert and Oriented HEENT - PERRL. EOMI. Neck - Supple and nontender. Abdomen - Soft and nondistended. Dressing dry and intact. Extremities - Bilateral mary ellen wraps in place. They are dry. Neuro - CN II-XII grossly intact. Psych - Normal mood and affect. Assessment & Plan Assessment/Plan (1) Squamous cell carcinoma of left lower leg: (2) Squamous cell carcinoma of right lower leg: (3) Neoplasm of skin of lower leg: (4) Neoplasm of skin of ankle: (5) Personal history of skin cancer: (6) Former smoker: PLAN: Plan Patient is resting comfortably. Does have abdominal incisional pain and right leg pain. She was unsteady on her feet with ambulation. Will have PT assess. She lives by herself. Will keep one more day to achieve better steadiness on her feet with ambulation. Encourage nutritional supplementation with protein to help the healing process. Prealbumin was 15.8. Continue antibiotics until the drain is removed. She may ambulate at home with her rollator. Minimize standing. Elevate her legs when sitting.
--- NOTE | 2022-07-25 12:15 | DCINST_ITS ---
Discharge Instructions Diet Discharge Diet: No restrictions Activity Discharge Activity: May Not Drive, May Take a Tub Bath (do not submerge in the bath. Wear plastic bag over mary ellen wraps on legs when bathing. Wear saran wrap over the abdominal dressing when bathing.) and - (patient may ambulate. Minimize standing. Elevate legs when sitting.) May resume sexual activity in: No Restrictions Weight Bearing Status: Weight bearing as tolerated Keep extremity elevated above heart level: Legs Dressing / Incision Call your doctor if your incision/area has: Continuous Slow Oozing, Sudden Increased Bleeding, Increased Pain/ Swelling, Increased Redness, Foul Smelling Discharge and Swelling at the incision site Call your doctor if you observe: Fever of 101 or Higher, Coldness, Increased Pain, Shortness of breath, Chest pain, Calf discomfort and Uncontrolled pain Change Dressing in: leave in place till F/U (will remove operative dressings in the office.) Cleanse incision/area with: Keep Dressing Clean & Dry (wear plastic bag over mary ellen wraps on legs and wear saran wrap over abdominal dressing when bathing.) Drain: Suction (puneet drain to bulb suction. Empty and record output daily.) Follow Up Care Please Follow Up With: Luis F Bergman MD When: next week. Will call patient for appt date and time in the office or at the Wound Center. Test Results: Test results from this visit will be discussed in further detail at your follow- up appointment, if applicable. Pending Tests Upon Discharge: A urinalysis has been ordered. If positive, will call in antibiotics. Discharge Plan Admission Admit Date/Time: 07/24/22 12:50 Primary Reason for Your Visit: excision squamous cell carcinoma legs Attending Provider: Luis F Bergman Primary Care Provider: Carson Kennedy Discharge Orders/Prescriptions Prescriptions: New cefadroxil 500 mg capsule 500 mg PO BID Qty: 28 0RF L.acidoph,saliva-B.bif-S.therm [Acidophilus Probiotic Blend] 175 mg capsule 1 cap PO DAILY Qty: 30 0RF oxycodone-acetaminophen [Percocet] 5-325 mg tablet 1 tab PO Q6H PRN (Reason: pain (scale score 7-10)) 7 Days Qty: 28 0RF Rx Instructions: 28 tabs (twenty-eight) docusate sodium [Colace] 100 mg capsule 100 mg PO BID Qty: 60 0RF promethazine 25 mg tablet 25 mg PO Q6H PRN (Reason: nausea and vomiting) Qty: 30 1RF Continued amlodipine 2.5 mg tablet 2.5 mg PO DAILY (DME) oxygen-air delivery systems Device See Rx Instructions .ROUTE Rx Instructions: As directed 3L at night trazodone 50 mg tablet 50 mg PO DAILY Rx Instructions: 1/2 tab at bedtime Myrbetriq 25 mg tablet extended release 24 hr 25 mg PO DAILY (DME) nebulizer and compressor [Comp-Air Nebulizer Compressor] Device See Rx Instructions .ROUTE Rx Instructions: As directed calcium carbonate 500 MG tablet 250 mg PO BID simvastatin 20 MG tablet 20 mg PO QHS aspirin 81 MG tablet,chewable 81 mg PO DAILY@0800 magnesium 250 MG tablet 400 mg PO BID hydroxychloroquine 200 MG tablet 200 mg PO BIDCM Centrum Silver 1 EACH tablet 1 ea PO DAILY Probiotic 1 EACH capsule 1 ea PO DAILY omeprazole 20 mg capsule,delayed release(DR/EC) 40 mg PO BID oxycodone-acetaminophen [Percocet] 5-325 mg Tablet 1 tab PO Q4H PRN (Reason: Pain) methotrexate sodium [Methotrexate (Anti-Rheumatic)] 2.5 mg Tablet 17.5 mg PO QWEEK folic acid 1 mg Tablet 2 mg PO LUNCH cholecalciferol (vitamin D3) [Vitamin D3] 50 mcg (2,000 unit) Capsule 50 mcg PO DAILY Trelegy Ellipta 200-62.5-25 mcg Blister With Device 1 inh INHALATION DAILY tramadol-acetaminophen 37.5-325 mg tablet 1 tab PO Q6H PRN (Reason: pain) Qty: 28 0RF Rx Instructions: Take 1 tablet by mouth every 6hrs as needed for post-operative pain pramipexole 1 mg tablet 1 mg PO QHS Rx Instructions: 0.5 tab po qam, 1 tab po qpm atenolol 50 mg tablet 25 mg PO LUNCH Referrals / Follow Up: Luis F Bergman MD [Med Staff - Active Staff] - (followup next week. will call for appt time and date in the office or at the Wound Center) Carson Kennedy MD [Primary Care Provider] - Disposition Disposition (needs filled in before D/C Order can be placed): Home, Self Care
--- NOTE | 2022-07-25 17:10 | CASEMGMT ---
Addendum entered by Amna Wilder 07/28/22 10:01: Call received from Katie @ [facility], stating they are unable to accept pt d/t pt is not in their service area. Original Note: CECILIA LOVE NOTE: Discharge order was in, as long as pt steady on her feet. PT/OT stated earlier today that pt had refused therapy. CECILIA LOVE to room. She was made aware Dr Bergman wants to ensure she is steady on her feet before d/c'ing home and importance of therapy evals. Pt stated would be agreeable to therapy working w/her. Call placed to therapy and they were made aware. Therapy up to see pt. Pt required 2 assist w/standing up, but then once she was up, less assistance needed. CECILIA LOVE spoke w/pt and dtr, Haylee, who is at bedside. Pt lives alone. Haylee states she has arranged for 15/02 aide care for pt thru [employer] [facility] in [place], to start tomorrow @ 4 PM. Haylee states she plans to stay w/pt overnight tonight, should she discharge home today, but states she is not comfortable assisting pt and does not feel safe w/her discharging home today. She asked for Dr Bergman to be notified of same. Dr Bergman notified and stated would cancel d/c today and plan for d/c tomorrow. Pt and dtr made aware and voice appreciation and state feel better w/this plan. They would like [facility] for pt for therapy. Pt states does not feel she needs a nurse. List of C agencies provided. They choose [facility]. They made aware HHC can not be set up over the w/e, d/t offices are closed, but referral could be reviewed on . They were made aware, if [facility] unable to accept pt, then another they would need to look into getting HHC thru another agency. They voice understanding. Dr Bergman aware of request for HHC and he states he will follow pt for HHC. Order placed for HHC. Call placed to [facility] and VM left re: referral for PT/OT, made aware plan is for d/c on Wednesday, and that Dr Bergman willing to follow for HHC. VM left w/L.CECILIA Lizarraga CM, for f/u re: [facility] on Wednesday, when she returns. Dtr also provided w/this CECILIA LOVE contact # and Reginald contact #. Pt states she has a walker, BSC, shower chair, rollator, and medical alert button @ home. She denies need for further DME. She lives in a one-story home w/no steps to enter. Dsg to LE to remain in place til f/u with Dr Bergman. She and pt aware. Pt states, @ her baseline, she is independent w/ADL's and IADL's. Pt states she only drives short distances. She has a helper that she pays private pay that can take her to her appts, if needed. Pt states she sponge-baths herself d/t not being able to get her wound/dsg wet. MAJOR form explained re: Observation status for treatment of ulcerated squamous cell carcinoma lt leg?.? Explained hospitalization will be paid per?her insurance policy for Outpatient billing?and condition will continue to be evaluated for Inpt necessity. Also let pt know that [facility] sends paper in the billing packet with their phone number if questions arise. Pt verbalizes understanding and does not have further questions. ?Form signed, copy made and placed in chart, and original given to pt. Aimee CRUZ RN, CM
[2022-07-25 18:22] LABS: Bacteria 0 SEEN /hpf (None Seen); Mucous, Urine 0 SEEN /hpf (<or=2+); Red Blood Cells-Urine 0 SEEN /hpf (0-5); Squamous Epithelial Cells - UA 0 SEEN /hpf (5-10); White Blood Cells 0 SEEN /hpf (0-5)
[2022-07-25 19:22] LABS: Color, Urine Yellow (Yellow); Glucose, Dipstick Normal (Normal); Ketone-Dipstick Negative (Negative); Leukocyte Esterase-Dipstick Negative /ul (Negative); Nitrite-Dipstick Negative (Negative); Occult Blood-Urine Negative /ul (Negative); Protein-Dipstick Negative (Negative); Specific Gravity, Urine 1.015 (1.002-1.030); Urine Bilirubin Dipstick Negative (Negative); Urine Clarity Clear (Clear); Urine Urobilinogen Normal (Normal)
[2022-07-25] MEDS: Pramipexole Di-HCl 1 MG Tablet PO (22:02)
[2022-07-25] MEDS: Atorvastatin Calcium 10 MG Tablet PO (22:02)
[2022-07-25] MEDS: traZODone 50 MG Tablet PO (22:02)
[2022-07-26] VITALS (7 sets, daily range): BP systolic 120–141; BP diastolic 46–59; PULSE 62–81; RESP 18–20; TEMP 36.6–36.9; O2SAT 92–95
[2022-07-26] MEDS: Albuterol 2.5 MG/3 ML VIAL.NEB. INHALATION ×2 (07:20→12:11)
[2022-07-26] MEDS: Budesonide Respules 0.5 MG/2 ML AMPUL.NEB. INHALATION (07:20)
[2022-07-26] MEDS: Juven (unflavored) Packet 1 PACKET PO (08:49)
[2022-07-26] MEDS: Multivitamins,Ther W-Minerals Tablet 1 TABLET PO (08:50)
[2022-07-26] MEDS: Hydroxychloroquine 200 MG Tablet PO (08:50)
[2022-07-26] MEDS: Magnesium Chloride 64 MG Delay Rel.Tablet 128 MG PO (08:50)
[2022-07-26] MEDS: Pantoprazole Sodium 40 MG Tablet PO (08:50)
[2022-07-26] MEDS: Calcium (Elemental) 500 MG Tablet 250 MG PO (08:51)
[2022-07-26] MEDS: traMADol 50 MG Tablet PO (09:00)
[2022-07-26] MEDS: Docusate Sodium 100 MG Capsule PO (10:32)
[2022-07-26] MEDS: Cholecalciferol (VIT D3) 25 MCG TABLET (1,000 UNITS) 50 MCG PO (10:33)
[2022-07-26] MEDS: Heparin Injection (Vial) 5,000 UNIT/ML VIAL 5000 UNIT SC (10:34)
[2022-07-26] MEDS: Mirabegron 25 MG TAB.ER.24H PO (10:35)
[2022-07-26] MEDS: amLODIPine 2.5 MG Tablet PO (10:35)
[2022-07-26] MEDS: Pramipexole Di-HCl 0.5 MG Tablet PO (10:35)
[2022-07-26] MEDS: Atenolol 50 MG Tablet 25 MG PO (11:53)
[2022-07-26] MEDS: Folic Acid 1 MG Tablet 2 MG PO (11:53)
--- NOTE | 2022-07-26 18:58 | DS.PCM_ITS ---
Providers Date of Admission: 07/24/22 Date of Discharge: 07/26/22 Primary Care Physician: Dr. Carson Kennedy MD Physical Therapy Reason For Visit: excision squamous cell carcinoma bilateral legs Diagnosis Discharge Diagnosis (1) 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 Code(s): C44.729 - Squamous cell carcinoma of skin of left lower limb, including hip (2) Squamous cell carcinoma of right lower leg: Status: Chronic Code(s): C44.722 - Squamous cell carcinoma of skin of right lower limb, including hip (3) Neoplasm of skin of lower leg: Status: Chronic Code(s): D49.2 - Neoplasm of unspecified behavior of bone, soft tissue, and skin (4) Neoplasm of skin of ankle: Status: Chronic Code(s): D49.2 - Neoplasm of unspecified behavior of bone, soft tissue, and skin (5) Personal history of skin cancer: Status: Chronic Code(s): Z85.828 - Personal history of other malignant neoplasm of skin (6) Former smoker: Status: Acute Code(s): Z87.891 - Personal history of nicotine dependence Medications at Discharge Home Medications aspirin 81 mg chewable tablet 81 mg PO DAILY@0800 11/03/16 calcium carbonate 500 mg calcium (1,250 mg) tablet 250 mg PO BID 11/03/16 hydroxychloroquine 200 mg tablet 200 mg PO BIDCM 11/03/16 lactobacillus comb no.10 20 billion cell capsule (Probiotic) 1 ea PO DAILY 11/03/16 magnesium 250 mg tablet 400 mg PO BID 11/03/16 ypmqaxjs-scn-qoxaw acid 0.4 mg-lycopene 300 mcg-lutein 250 mcg tablet (Centrum Silver) 1 ea PO DAILY 11/03/16 simvastatin 20 mg tablet 20 mg PO QHS 11/03/16 cholecalciferol (vitamin D3) 50 mcg (2,000 unit) capsule (Vitamin D3) 50 mcg PO DAILY 06/05/22 fluticasone fur. 200 mcg-umeclid 62.5 mcg-vilant 25 mcg inhalat.powder (Trelegy Ellipta) 1 inh inhalation DAILY 06/05/22 folic acid 1 mg tablet 2 mg PO LUNCH 06/05/22 methotrexate sodium 2.5 mg tablet 17.5 mg PO QWEEK 06/05/22 oxycodone-acetaminophen 5 mg-325 mg tablet (Percocet) 1 tab PO Q4H PRN Pain 06/05/22 tramadol 37.5 mg-acetaminophen 325 mg tablet 1 tab PO Q6H PRN pain #28 tabs 06/12/22 amlodipine 2.5 mg tablet 2.5 mg PO DAILY 07/07/22 atenolol 50 mg tablet 25 mg PO LUNCH 07/07/22 mirabegron 25 mg tablet,extended release 24 hr (Myrbetriq) 25 mg PO DAILY 07/07/22 nebulizer and compressor (Comp-Air Nebulizer Compressor) 07/07/22 omeprazole 20 mg capsule,delayed release 40 mg PO BID 07/07/22 oxygen-air delivery systems 07/07/22 pramipexole 1 mg tablet 1 mg PO QHS 07/07/22 trazodone 50 mg tablet 50 mg PO DAILY 07/07/22 L.acidophil,salivari-Bifido bifidum-Strep thermoph 175 mg capsule (Acidophilus Probiotic Blend) 1 cap PO DAILY #30 caps 07/25/22 cefadroxil 500 mg capsule 500 mg PO BID #28 caps 07/25/22 docusate sodium 100 mg capsule (Colace) 100 mg PO BID constipation #60 caps 07/25/22 oxycodone-acetaminophen 5 mg-325 mg tablet (Percocet) 1 tab PO Q6H PRN pain (scale score 7-10) 7 days #28 tabs 07/25/22 promethazine 25 mg tablet 25 mg PO Q6H PRN nausea and vomiting #30 tabs 07/25/22 Hospital Course Operations - (07/24/22 - 1. Excision 6.5 cm nonhealing ulcerated invasive well- differentiated squamous cell carcinoma with STSG reconstruction from the lower anterior abdominal wall (63 cm2). 2. Excision 2 cm squamous cell carcinoma right medial leg with STSG reconstruction from the lower anterior abdominal wal) Procedures None Summary of Care Provided Minutes Spent on Discharge: 35 Hospital Course: 87 year old woman presented to the Wound Center with a chronic ulcer on left foot and her left anteromedial leg.? While treating these chronic ulcers, the left leg ulcer was increasing in size and there was concern about carcinoma.? A biopsy was done on 06/12/22.? 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 The patient first noticed this ulcer about 6 months ago.? She also has concerns about two lesions on her right medial leg and right medial ankle that have increased in size over the last several months.? They have become more raised in configuration and look like cutaneous horns.? She denies fever.? She denies trauma. She denies any infection.? She denies bleeding. ? She had a skin cancer removed in the past using Moh's technique.? On 07/24/22, the patient was taken to the operating room where she underwent excision 6.5 cm nonhealing ulcerated invasive well-differentiated squamous cell carcinoma with STSG reconstruction from the lower anterior abdominal wall (63 cm2) and excision 2 cm squamous cell carcinoma right medial leg with STSG reconstruction from the lower anterior abdominal wall (16 cm2) and excision 2.5 cm squamous cell carcinoma right medial ankle with STSG reconstruction from the lower anterior abdominal wall (24.75 cm2). Frozen section of the cutaneous horn lesions right medial leg and right medial ankle showed squamous cell carcinoma. She tolerated the procedure well and was sent upstairs as a surgical observation stay at the hospital. She was afebrile during her hospital stay. Her Hgb was 10.8. Her drainage ranged from 85 ml to 40 ml at discharge. Will remove the drain in the office. Her Prealbumin was 15.8. Encouraged nutritional supplementation with protein to help the healing process. The first postoperative day, she was unsteady on her feet with ambulation because of the incisional pain in her legs and having mary ellen wraps on her legs. Physical Therapy evaluated her and felt she would benefit from skilled physical therapy after discharge as she lives by herself. She stayed one more night in the hospital unt il she became more steady on her feet with ambulation and minimize the risk of falling at home. The patient states she was having urgency and frequency when she would try and urinate. A urinalysis was done which was normal. She may benefit from a Urology evaluation after discharge. On the second postoperative day, she was more steady on her feet with ambulation, and she was discharged home in satisfactory condition. Wrote scripts for Cefadroxil, Acidophilus Probiotic, Percocet, Phenergan, and Colace. She will keep her legs elevated when sitting. She will minimize standing. Continue abdominal binder for a month. Anticipate removing the drain in 10-14 days. Followup in the office next week. Condition upon discharge is good. Physical Exam Narrative PHYSICAL EXAMINATION General - Alert and Oriented. HEENT - PERRL. EOMI. Neck - Supple and nontender. Abdomen - Soft and nondistended. Dressing is dry and intact. Extremities - Bilateral mary ellen wraps are dry. Neuro - CN II-XII grossly intact. Psych - Normal mood and affect. Weight / BMI Weight Weight: 156 lb Body Mass Index (BMI) 25.9 Drainage 78 ml yesterday, 40 ml today. ABG / Lab / Microbiology Data Attestation: I reviewed the patient's lab results. Result Diagrams: 07/25/22 06:05 07/25/22 06:05 Laboratory: Laboratory Results - last 24 hr 07/25/22 18:10: Urine Color Yellow, Urine Clarity Clear, Urine pH 6.0, Ur Specific [place] 1.015, Urine Protein Negative, Urine Glucose (UA) Normal, Urine Ketones Negative, Urine Occult Blood Negative, Urine Nitrite Negative, Urine Bilirubin Negative, Urine Urobilinogen Normal, Ur Leukocyte Esterase Negative, Urine RBC 0 SEEN, Urine WBC 0 SEEN, Ur Squamous Epith Cells 0 SEEN, Urine Bacteria 0 SEEN, Urine Mucus 0 SEEN D/C Instructions Discharge Diet: No restrictions May resume sexual activity in: No Restrictions Weight Bearing Status: Weight bearing as tolerated Keep extremity elevated above heart level: Legs Call your doctor if your incision/area has: Continuous Slow Oozing, Sudden Increased Bleeding, Increased Pain/ Swelling, Increased Redness, Foul Smelling Discharge and Swelling at the incision site Call your doctor if you observe: Fever of 101 or Higher, Coldness, Increased Pain, Shortness of breath, Chest pain, Calf discomfort and Uncontrolled pain Cleanse incision/area with: Keep Dressing Clean & Dry (wear plastic bag over mary ellen wraps on legs and wear saran wrap over abdominal dressing when bathing.) Drain: Suction (puneet drain to bulb suction. Empty and record output daily.) Pending Tests Upon Discharge: A urinalysis has been ordered. If positive, will call in antibiotics. Please Follow Up With: Luis F Bergman MD When: next week. Will call patient for appt date and time in the office or at the Wound Center. Meaningful Use Info Meaningful Use Diagnoses (Choose all that apply): None applicable Discharge Plan Admission Admit Date/Time: 07/24/22 12:50 Primary Reason for Your Visit: excision squamous cell carcinoma legs Attending Provider: Luis F Bergman Primary Care Provider: Carson Kennedy Discharge Orders/Prescriptions Prescriptions: New cefadroxil 500 mg capsule 500 mg PO BID Qty: 28 0RF L.acidoph,saliva-B.bif-S.therm [Acidophilus Probiotic Blend] 175 mg capsule 1 cap PO DAILY Qty: 30 0RF oxycodone-acetaminophen [Percocet] 5-325 mg tablet 1 tab PO Q6H PRN (Reason: pain (scale score 7-10)) 7 Days Qty: 28 0RF Rx Instructions: 28 tabs (twenty-eight) docusate sodium [Colace] 100 mg capsule 100 mg PO BID Qty: 60 0RF promethazine 25 mg tablet 25 mg PO Q6H PRN (Reason: nausea and vomiting) Qty: 30 1RF Continued amlodipine 2.5 mg tablet 2.5 mg PO DAILY (DME) oxygen-air delivery systems Device See Rx Instructions .ROUTE Rx Instructions: As directed 3L at night trazodone 50 mg tablet 50 mg PO DAILY Rx Instructions: 1/2 tab at bedtime Myrbetriq 25 mg tablet extended release 24 hr 25 mg PO DAILY (DME) nebulizer and compressor [Comp-Air Nebulizer Compressor] Device See Rx Instructions .ROUTE Rx Instructions: As directed calcium carbonate 500 MG tablet 250 mg PO BID simvastatin 20 MG tablet 20 mg PO QHS aspirin 81 MG tablet,chewable 81 mg PO DAILY@0800 magnesium 250 MG tablet 400 mg PO BID hydroxychloroquine 200 MG tablet 200 mg PO BIDCM Centrum Silver 1 EACH tablet 1 ea PO DAILY Probiotic 1 EACH capsule 1 ea PO DAILY omeprazole 20 mg capsule,delayed release(DR/EC) 40 mg PO BID oxycodone-acetaminophen [Percocet] 5-325 mg Tablet 1 tab PO Q4H PRN (Reason: Pain) methotrexate sodium [Methotrexate (Anti-Rheumatic)] 2.5 mg Tablet 17.5 mg PO QWEEK folic acid 1 mg Tablet 2 mg PO LUNCH cholecalciferol (vitamin D3) [Vitamin D3] 50 mcg (2,000 unit) Capsule 50 mcg PO DAILY Trelegy Ellipta 200-62.5-25 mcg Blister With Device 1 inh INHALATION DAILY tramadol-acetaminophen 37.5-325 mg tablet 1 tab PO Q6H PRN (Reason: pain) Qty: 28 0RF Rx Instructions: Take 1 tablet by mouth every 6hrs as needed for post-operative pain pramipexole 1 mg tablet 1 mg PO QHS Rx Instructions: 0.5 tab po qam, 1 tab po qpm atenolol 50 mg tablet 25 mg PO LUNCH Referrals / Follow Up: Luis F Bergman MD [Med Staff - Active Staff] - (followup next week. will call for appt time and date in the office or at the Wound Center) Carson Kennedy MD [Primary Care Provider] - Disposition Disposition (needs filled in before D/C Order can be placed): Home, Self Care
--- NOTE | 2022-07-29 10:19 | CASEMGMT ---
CECILIA LOVE Follow-up: Late entry for 07/28/22: Call placed to patient to discuss alternative [facility] providers. VM received which stated messages do not get checked. Call placed to pt's daughter Haylee and second choices of [facility] and [facility] as second and third choices. Referrals sent via [facility] to both providers. Entry for this date: [facility] message received stating [facility] has accepted pt with confirmation that PCP was willing to follow. Call placed to Dr. Kennedy's office and per Ralph, Dr. Kennedy will follow. Pt was last seen in his office in April,. Message returned to [facility] of this confirmation. Jakub Lizarraga RN CM
--- NOTE | 2022-07-29 10:29 | CASEMGMT ---
CECILIA LOVE: Call placed to pt's daughter Haylee and update provided that [facility] has accepted pt for PT/OT. [facility] will be reaching out to set up visit. Haylee expressed understanding and denied any further questions or concerns. Jakub Lizarraga RN CM
== END 2022-07-26 14:37 | disposition home health service (06) ==
LOC: SDC 16:21 → MS3 16:21
PROVIDERS: Admitting Provider Surgery; PCP Family Medicine; Referring Provider Surgery; Visit Provider Surgery
PROC: (CPT 15100; principal; 2022-07-24 07:15)
DX: C44.722 Squamous cell carcinoma of skin of right lower limb, including hip (principal); L97.529 Non-pressure chronic ulcer of other part of left foot with unspecified severity; M06.9 Rheumatoid arthritis, unspecified; J43.9 Emphysema, unspecified; I11.0 Hypertensive heart disease with heart failure; I50.9 Heart failure, unspecified; D49.2 Neoplasm of unspecified behavior of bone, soft tissue, and skin; E78.00 Pure hypercholesterolemia, unspecified; Z87.891 Personal history of nicotine dependence; C44.729 Squamous cell carcinoma of skin of left lower limb, including hip; K21.9 Gastro-esophageal reflux disease without esophagitis; Z95.0 Presence of cardiac pacemaker; Z79.899 Other long term (current) drug therapy; Z79.82 Long term (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 aspirin; Z79.51 Long term (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 inhaled steroids
CPT/HCPCS: 15100; 11606 ×2; 11604; 15101; 36415; 80048; 81001; 84134; 85027; 88305; 88331; 88332; 94640; 94762; 96365; 96366; 96372; 96375; 97162; 99221; J7120; G0378; J2405

== ENCOUNTER 2022-08-06 09:56 | Outpatient (RCR) | payer MEDICARE, OTHER, SELFPAY ==
[2022-07-26 00:21] VITALS: BP 155/79; PULSE 77; RESP 16; TEMP 35.9; BMI 25.7
[2022-08-06 10:04] VITALS: BP 140/63; PULSE 78; TEMP 36.1; BMI 25.7
--- NOTE | 2022-08-06 11:11 | PN.PCM_ITS ---
History of Present Illness Date of Service: 08/06/22 Chief Complaint: Bilateral knee wound History of Wound: Ms. Castro is an 86-year-old who is currently being seen for below knee ulcers however I was asked to see due to nonhealing bilateral knee wound. Said to have been sustained about 2 weeks ago when she fell on her knees. Initially had apply Ch[place]ita to the area however, worsening was noted this week. She states that there has been a lot of rubbing underneath her clothing and so dressing has not stayed on adequately. She feels well. Denies chills, fever or feeling of unwell. 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 She had surgical intervention with the plastic surgeon for excision of her cancerous lesions on 07/24/2022. She reports she is doing well post surgery. Patient denies any constitutional symptoms. Patient has no further complaints. Objective Data Objective Data Vital Signs: Vital Signs Temp Pulse Resp BP 97.0 F L 78 16 140/63 H 08/06/22 10:04 08/06/22 10:04 07/26/22 00:21 08/06/22 10:04 Weight: 70.307 kg Body Mass Index (BMI) 25.7 Physical Exam Const alert, oriented x3 and no apparent distress General Appearance: cooperative HEENT normocephalic Eyes General Eye: normal appearance of both eyes Neck General: normal visual inspection Lymph Lymphatic: no lymphadenopathy noted and no lymphedema noted Resp normal respiratory effort Cardio regular rate and regular rhythm Extremity normal capillary refill, no joint enlargement, no calf tenderness and no pedal edema Extremity Narrative: Right Lower Extremity: foot and digits Positive for ROM (Decreased range of motion at the first metatarsophalangeal joint secondary to end-stage hallux limitus/rigidus) Left Lower Extremity: foot and digits Positive for ROM (Decreased range of motion at the first metatarsophalangeal joint secondary to end-stage hallux limitus/rigidus) Skin no rashes or lesions noted, skin turgor normal and no jaundice Skin Narrative: Skin is thin and friable/atrophic to bilateral lower extremities Wound Narrative: Left lower extremity: Dressed, post-surgical resection Left hallux sub-IPJ surgical site demonstrates intact sutures with skin well coapted.? No signs of infection. Neuro moves all extremities Debridement Note Debridement Note No debridement was completed: No debridement was completed today Post-Debridement Measurements and Additional Note: Post-Debridement Measurements/Treatment BRAN - Nurse 1 - General Ulcer Assessment Start: 08/06/22 10:04 Freq: Status: Active Protocol: ALEX Activity Type Activity Date Activity User E-sign Co-sign Detail Recorded Client Recorded Date Recorded By Document 08/06/22 10:04 TORSTEN [id number] 08/06/22 10:05 TOSRTEN 08/06/22 10:04 - Today's Visit Information Type of service Follow-up Visit (Physician/EARLY CHILDHOOD COORDINATOR ) Arrival Mode Ambulatory Patient Identification Verified (Name & Yes ) Height and Weight Body Mass Index (BMI) 25.7 BMI Classification Overweight Vital Signs Temperature (97.8 F-99.1 F) 97.0 F L Temperature Source Temporal Pulse Rate (60-100) 78 Pulse Location Monitor Blood Pressure (90/60-120/80) 140/63 H Blood Pressure Mean (mm Hg) 88 Source Monitor Position Semi-Fowlers Blood Pressure Location Left Arm History Since Last Visit- (Skip if this is Patient's initial visit) Have you changed medications since your No last visit? Any new allergies or adverse reactions No Had a fall/change in ADL's that may No increase risk of falls Signs or symptoms of abuse and/or No neglect since last visit Have you been in the hospital since your No last visit? Has dressing in place as prescribed Yes Has compression in place as prescribed N/A Has offloadiing in place as prescribed N/A Experienced any changes in pain level or No management Left Footwear Regular Shoe Right Footwear Regular Shoe Pain Scale: 0-10 Numeric Is Patient Pain Free? Yes BRAN - Nurse 1 - General Ulcer Measurement Start: 08/06/22 10:04 Freq: Status: Active Protocol: Activity Type Activity Date Activity User E-sign Co-sign Detail Recorded Client Recorded Date Recorded By Document 08/06/22 10:04 TORSTEN [id number] 08/06/22 10:05 TORSTEN 08/06/22 10:04 Wound Center Nurse 1 #10- L HALLUX POST OP -Current Size (cm) - Length 0.1 -Current Size (cm) - Width 0.1 -Current Size (cm) - Depth 0.1 -Total Square Cm 0.01 Assessment/Plan Assessment/Plan (1) Chronic venous insufficiency: (2) Non-pressure 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: CODE(S): L97.522 - Non-pressure 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 (3) Hallux limitus of left foot: CODE(S): M20.5X2 - Other deformities of toe(s) (acquired), left foot PLAN: Plan Patient seen and evaluated. I discussed her case today. She is s/p removal of accessory bone left hallux and debridement with biopsy of left lower extremity ulceration.? POV #5, DOS 06/12/2022, POD #55 I have previously discussed with her and her shuttle buggy operator the results of the lower extremity ulceration biopsy performed on 06/12/2022.? 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 I recommended complete excision of this lesion and possibly including 2 lesions of the right lower extremity.? I discussed these pathological results in detail today.? I recommended consult with Plastic Surgeon to perform excision with possible regional lymph node biopsy and further work-up. Follow-up with oncologist was also recommended. Daughter was also informed of these results.? She underwent excision of her cancerous lesions on 07/24/2022 with plastic surgeon. She will continue to follow with him for post-operative care of her cancerous lesions. 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 Sutures intact to the left hallux with skin well coapted.? No signs of infection.?Sutures removed today. Surgical site dressed with Betadine, 4 x 4 gauze, Kerlix, and an Francisco Javier wrap lightly rolled onto the foot.? She was instructed to keep the dressings clean, dry, and intact for the next 48 hours. She was instructed to continue to wear her postoperative offloading shoe for the next 10 days as the skin is still sensitive and to monitor for any signs of pressure or reopening to the surgical site. She may get the site wet in 48 hours. Patient to continue to elevate lower extremities in addition to wearing her Tubigrip compression stockings bilateral to aid in edema control.?I discussed with her that she is to continue to elevate her feet at times of rest. Patient voices understanding of this. ? The following work up and care recommendations were made: Dressing: Betadine, Adaptic , 4 x 4 gauze, Kerlix, and an Francisco Javier wrap to the left foot Wash: May wash with soap and water in 48 hours Tissue growth optimization: None Offload: Offloading dressing of the first metatarsophalangeal joint and left hallux Vascular: Vascular status intact with palpable pedal pulses. She had venous studies performed confirming reflux of the left great saphenous vein with no deep venous thrombosis bilaterally. Venous Doppler was ordered 07/02/22 was negative for DVT. Edema: Elevation of the left lower extremity and right lower extremity control to control edema.?Patient instructed to wear double Tubigrip stockings Infection: No localized signs of infection Pain: May take [id number] Tylenol, safe oral anti-inflammatory use discussed. Host factors: Chronic venous insufficiency ? I answered all the patient's questions.? At this time her wound is healed and she will be discharged from the wound care center. She was instructed to call the office sooner if she has any reopening to the site or for any foot or ankle problems. Note: [employer] speech recognition production machine computer operator software was used to create portions of this document. Sound-alike and misspelled words, as well as other production machine computer operator errors may be contained in the documentation.
== END 2022-08-07 13:58 | disposition home or self-care (01) ==
LOC: WC 09:56
PROVIDERS: PCP Family Medicine; Referring Provider Student in an Organized Health Care Education/Training Program; Visit Provider Student in an Organized Health Care Education/Training Program
DX: L97.522 Non-pressure 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 (principal); I87.2 Venous insufficiency (chronic) (peripheral); M20.5X2 Other deformities of toe(s) (acquired), left foot
CPT/HCPCS: 99213; G0463

== ENCOUNTER → 2022-08-20 | Outpatient (CLI) | payer MEDICARE, OTHER, SELFPAY | END | disposition home or self-care (01) | LOC: LABSPEC 13:28 | PROVIDERS: PCP Family Medicine; Referring Provider Surgery; Visit Provider Surgery | DX: T86.828 Other complications of skin graft (allograft) (autograft) (principal); C44.722 Squamous cell carcinoma of skin of right lower limb, including hip | CPT/HCPCS: 87070; 87075; 87077; 87186; 87205 ==

== ENCOUNTER → 2022-11-19 | Outpatient (CLI) | payer MEDICARE, OTHER, SELFPAY | END | disposition home or self-care (01) | PROVIDERS: PCP Family Medicine; Referring Provider Nurse Practitioner Family; Visit Provider Nurse Practitioner Family | DX: S90.822A Blister (nonthermal), left foot, initial encounter (principal); X58.XXXA Exposure to other specified factors, initial encounter | CPT/HCPCS: 87070; 87075; 87077; 87186; 87205 ==

== ENCOUNTER 2022-12-09 06:02 | Day surgery (SDC) | payer MEDICARE, OTHER, SELFPAY ==
--- NOTE | 2022-12-09 | LES_PTH ---
PATIENT: JUSTIN VALDOVINOS [place] [facility] [id number] AGE/SX: 87/F ROOM: RE12/09/[address]: Dr. Luis F Bergman MD : [id number] BED: DIS: 12/09/2022 SPEC #: [id number] RECD: 12/09/22 08:26 STATUS: GUERO REJessica #: [id number] DIMA: 12/09/22 00:[address]: Luis F Bergman DEPT: SURGICAL PATHOLOGY RECD BY: Amy Monteiro ENTERED: 12/09/22 09:14 SP TYPE: Lesion OTHR DR: Dr. Carson Kennedy MD Tissues: A - Skin of knee, NOS B - Skin of hand and finger, NOS C - Skin of knee, NOS D - Skin of hand and finger, NOS Procedures: Frozen Section (charge) Frozen Section Add'l ([facility]) Surgery Specimen Level IV HEADER OPERATION: Excision actinic keratosis with atypia, left lateral knee PRE-OP DIAGNOSIS: 1.5 cm cutaneous horn left lateral knee; 0.7 cm cutaneous horn lesion dorsum right hand at MP joint index finger TISSUE SUBMITTED: A - 1.5 cm cutaneous horn lesion left lateral knee, suture childers 12 o?clock, FS B - 0.7 cm cutaneous horn lesion dorsum right hand at MP joint index finger, suture childers 12 o?clock, FS, C - Actinic keratosis with atypia, left lateral knee, suture childers 12 o?clock, D - Actinic keratosis with atypia, dorsum right hand at MP joint index finger, suture childers 12 o?clock FROZEN SECTION DIAGNOSIS A. Left lateral knee, biopsy: Actinic keratosis with atypia. B. Dorsum right hand lesion at MP joint index finger: Actinic keratosis with atypia, suspicious for well differentiated squamous cell carcinoma, keratoacanthomatous type. ANDREA:jeremy 12/09/2022 MICROSCOPIC DIAGNOSIS A. Left lateral knee, biopsy: Superficially invasive well differentiated squamous cell carcinoma. Actinic keratosis with mild to moderate atypia. Solar elastosis. B. 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 Actinic keratosis with mild to moderate atypia. Solar elastosis. C. Actinic keratosis with atypia left knee, excisional biopsy: Actinic keratosis and mild atypia. Solar elastosis. Negative for carcinoma. D. Actinic keratosis with atypia right hand MP joint index finger, excisional biopsy: Actinic keratosis with moderate to severe atypia. Solar elastosis. Negative for carcinoma. See comment. ANDREA:jeremy 12/10/2022 COMMENT A. Squamous cell carcinoma is noted only in permanent slides in deeper sections. A & B. Perineural invasion or lymph vascular invasion are not seen. D. The margins are free of severe atypia. Please make reference to previous specimens ([id number]) left leg wound, biopsy with diagnosis of ?invasive well-differentiated squamous cell carcinoma? and ([id number]) right medial leg lesion, biopsy with diagnosis of ?invasive well-differentiated squamous cell carcinoma? and right medial ankle lesion with diagnosis of ?invasive squamous cell carcinoma.? Case has been reviewed in consultation with Dr. Germain who concurs with the above diagnosis. IDC:AM MICROSCOPIC DESCRIPTION Slides are reviewed. GROSS DESCRIPTION A - Received fresh for frozen section diagnosis labeled with the patient's name is a specimen designated left lateral knee. The specimen consists of a round piece of velásquez-white skin measuring 1.4 x 1.0 x 0.4 cm. The specimen is oriented by a suture at 12 o?clock. The specimen is inked as follows: 12 to 3 o'clock - black, 3 to 6 o'clock - blue, 6 to 9 o'clock - green and 9 to 12 o'clock - yellow. The specimen is serially sectioned and submitted entirely in one cassette for frozen section diagnosis. / ANDREA: 12/09/2022 B - Received fresh for frozen section diagnosis labeled with the patient's name is a specimen designated ?dorsum right hand at MP joint index finger.? The specimen consists of a piece of velásquez-brown skin measuring 1.2 x 1.1 x 0.4 cm. The specimen is inked as follows: 12 to 3 o'clock - black, 3 to 6 o'clock - blue, 6 to 9 o'clock - green and 9 to 12 o'clock - yellow. The specimen is serially sectioned and submitted entirely in two cassettes for frozen section diagnosis. / SJ: 12/09/2022 C - Received in fixative is one container labeled with the patient's name and designated actinic keratosis with atypia, left lateral knee, suture childers 12 o'clock. The specimen consists of a trina-shaped piece of velásquez-white skin measuring 3.0 x 3.0 x 0.5 cm. The specimen is inked as follows: 12 to 3 o'clock - black, 3 to 6 o'clock - blue, 6 to 9 o'clock - green and 9 to 12 o'clock - yellow. There is a central area of ulceration measuring 1.5 x 1.5 cm. The specimen is serially sectioned and submitted entirely in four cassettes. / SJ: 12/09/2022 D - Received in fixative is one container labeled with the patient's name and designated actinic keratosis with atypia, dorsum right hand at MP joint index finger, suture childers 12 o'clock. The specimen consists of a trina-shaped piece of velásquez-white skin measuring 2.5 x 2.5 cm and up to 0.3 cm in thickness. The specimen is inked as follows: 12 to 3 o'clock - black, 3 to 6 o'clock - blue, 6 to 9 o'clock - green and 9 to 12 o'clock - yellow. A central defect is noted in the specimen measuring 1.5 x 1.5 cm. Inner ring of central defect is inked with red ink. The specimen is serially sectioned and submitted entirely in three cassettes. / SJ: 12/09/2022 TC:0 CPT: 83377 x4, 93395 x2, 37136
[2022-12-09] MEDS: Lactated Ringers 1,000 ML 15 ML IV ×2 (06:49→10:58)
[2022-12-09] MEDS: Vancomycin IV 1,000 MG/200 ML BAG 200 MG IV (06:49)
[2022-12-09 06:53] VITALS: BP 144/65; PULSE 75; RESP 17; TEMP 36.9; O2SAT 97; BMI 25.3
[2022-12-09] MEDS: Lidocaine 1%/Epi 1:200 (30ml) 30 ML AMPUL (09:03)
[2022-12-09] MEDS: Mupirocin Ointment 22gm Tube 1 APPLIC (10:00)
--- NOTE | 2022-12-09 10:34 | OP.PCM_ITS ---
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 1.5 cm cutaneous horn lesion left lateral knee. 2. 0.7 cm cutaneous horn lesion dorsum right hand at MP joint index finger. 3. Scattered actinic lesion dorsum left hand with extension to the wrist. 4. Personal history of skin cancer. 5. History of MRSA. 6. Former smoker. Post-Operative Diagnosis: 1. 1.5 cm cutaneous horn with actinic damage left lateral knee. 2. 0.7 cm cutaneous horn with actinic damage and atypia with possible squamous cell carcinoma in situ component dorsum right hand at MP joint index finger. 3. Scattered actinic lesion dorsum left hand with extension to the wrist. 4. Personal history of skin cancer. 5. History of MRSA. 6. Former smoker. Surgery/Procedure Performed:: 1. Excision 1.5 cm cutaneous horn with actinic damage left lateral knee with rhomboid transposition skin flap reconstruction (14.58 cm2). 2. Excision 0.7 cm cutaneous horn with actinic damage and atypia with possible squamous cell carcinoma in situ component dorsum right hand at MP joint index finger with FTSG reconstruction from right volar forearm (7.29 cm2). 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 Podiatry has been managing the left foot ulcer.? While treating these chronic ulcers, the left leg ulcer was increasing in size and there was concern about carcinoma.? A biopsy was done on 06/12/22.? 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 She had concerns about two other cutaneous horn lesions on her right medial leg and right medial ankle that have increased in size as well over the last several months.? She had surgery on 07/24/22 where the cutaneous horn lesions were biopsied and Pathology showed invasive well- differentiated squamous cell carcinomas.? In surgery, she underwent excision 6.5 cm nonhealing ulcerated invasive well-differentiated squamous cell carcinoma left anteromedial leg with STSG reconstruction from the lower anterior abdominal wall (63 cm2) and excision 2 cm squamous cell carcinoma right medial leg with STSG reconstruction from the lower anterior abdominal wall (16 cm2) and excision 2.5 cm squamous cell carcinoma right medial ankle with STSG reconstruction from the lower anterior abdominal wall (24.75 cm2).?? For the squamous cell carcinoma left anteromedial leg, it extended 4.5 mm into the subcutaneous tissue.? Radiation Therapy was recommended to the patient and she was hesitant to proceed.? The skin grafts were slow to heal and eventually healed with wound care except for the right medial ankle skin graft which is taking longer to heal.? Epifix was recommended and she is considering that. ? During her weekly wound care visits in the office, it was noted she had a cutaneous horn lesion on her left lateral knee. ? It was recommended to have this cutaneous horn lesion excised with skin flap or skin graft reconstruction.? Recently, in the past couple of weeks it was noted she had a cutaneous horn lesion dorsum right hand at MP joint index finger.? She also has scattered actinic lesions dorsum left hand extending to the wrist.? She denies fever.? She denies trauma. She denies any infection.? She denies bleeding. ? She had a skin cancer removed in the past using Moh's technique.?? Patient was informed of the risks and complications of the procedure including alternatives to surgery. These were discussed with the patient personally. Patient voices understanding and wishes to proceed. Some of the risks and complications were included in a form from the [employer]. Potential risks and complications included but not inclusive of bleeding, infection, seroma, hematoma, bruising, swelling, prolonged need for drains, loss of sensation to skin, partial or complete loss of skin flap and/or nipple graft, wound breakdown, need for wound care, poor scarring, poor aesthetic outcome, intra operative cardiac or neurologic events, DVT, PE, and reaction to anesthe dileep. Frozen section cutaneous horn lesion left lateral knee - actinic damage Frozen section cutaneous horn lesion dorsum right hand at MP joint index finger - actinic damage with some atypia with possible squamous cell carcinoma in situ component. I used AxioFill Placental Connective Tissue Powder, (250 mg). Catalog Number - [id number]. Lot Number - [id number]. Expiration - August 26, 2027. I used Pete absorbable hemostat. Reference Number - [id number]. Lot Number - [id number]. Expiration - June 22, 2027. Surgeon: Luis F Bergman MD jute bag sewer: Scott Prakash RNFA Type of Anesthesia: General Anesthesiologist: Alexandre Ureña MD and Amanda Funk CRNA Specimen's removed: 1. Cutaneous horn lesion left lateral knee to Pathology as a frozen section. 2. Cutaneous horn lesion dorsum right hand at MP joint index finger to Pathology as a frozen section. 3. Additional margin of cutaneous horn lesion with actinic damage left lateral knee to Pathology. 4. Additional margin of cutaneous horn lesion with actinic damage and atypia with possible squamous cell carcinoma in situ component dorsum right hand at MP joint index finger to Pathology. Drains: None. Estimated Blood Loss (mL): 5. Description of Procedure: Patient was taken to OR in supine position and was placed under general anesthesia. The left knee, right forearm and hand areas were prepped and draped in the usual fashion. SCD's were placed for DVT prophylaxis. Perioperative antibiotics were given intravenously. Using xylocaine with epinephrine, the cutaneous horn lesions left lateral knee and dorsum right hand at MP joint index finger were infiltrated. After waiting 5 minutes for the anesthetic to take effect, both of these cutaneous horn lesions were excised in a circular fashion into the subcutaneous tissue. A suture was marked at 12 oclock position for pathology orientation. The lesions were sent to Pathology as a frozen section for analysis to rule out carcinoma. Frozen section showed the left lateral knee cutaneous horn lesion was actinic damage. The dorsum right hand at MP joint index finger cutaneous horn lesion was actinic damage with atypia with possible squamous cell carcinoma in situ component. Pathology could not say definitively whether there was invasion but in situ is suspected. Therefore I will treat these lesions as though invasive carcinoma is seen on Permanent Pathology. For the left lateral knee, I marked out 6 mm margin in all directions thus making it a 2.7 cm excision and designed a rhomboid defect for a rhomboid transposition skin flap. The additional margin was excised into the subcutaneous tissue. A suture was marked at 12 oclock position for pathology orientation. The additional margin tissue was sent to Pathology for analysis to rule out carcinoma at the margins. A rhomboid flap was designed adjacent to the wound defect. Incisions were made and the rhomboid flap was elevated on a subcutaneous pedicle and easily transposed into the wound with minimal tension and minimal distortion. Hemostasis was obtained with electrocautery. With the size of the wound, I sprayed Pete absorbable hemostat into the wound to minimize seroma formation. The wound was then closed after the flap was transposed into the wound with 3-0 Monocryl interrupted sutures for underlying Justine's fascia. The deep dermis and subcutaneous tissue was approximated with 3-0 Monocryl interrupted sutures. The skin was approximated with 4-0 Prolene simple interrupted sutures. Antibiotic ointment was applied to the suture line and continued daily. I then addressed the dorsum right hand at MP joint index finger. Since there was some atypia present and possible early carcinoma in situ, I marked out a margin of 1 cm in all directions making it a 2.7 cm excision. Incision was made and the additional margin was excised into the subcutaneous tissue. A suture was marked at 12 oclock position for pathology orientation. The additional margin tissue was sent to Pathology for analysis to rule out carcinoma at the margins. The size of the wound to be skin grafted was 2.7 x 2.7 cm or 7.29 cm2. I marked out a longitudinal ellipse on the volar forearm for the skin graft donor site. Incisions were made and the subcutaneous tissue was removed from the undersurface of the dermis thus fashioning a full thickness skin graft. The skin graft was then placed on the wound defect dorsum right hand at MP joint index finger. I placed AxioFill placental connective tissue powder on the wound bed to aid in wound healing. I used 250 mg. The skin graft was anchored in the wound with 5-0 Chromic simple interrupted sutures around the skin edges. 5-0 Chromic sutures were also used for central quilting stabilization. I applied antibiotic ointment to the skin graft followed by Xeroform gauze and cotton balls soaked in saline and secured to the skin edges with 4-0 Nylon tie over stent suture dressing. The skin graft donor site was then closed in a layered fashion. I undermined the skin flaps about 2 cm to aid in wound closure. Hemostasis was obtained with electrocautery. The donor wound was closed in a layered fashion with 3-0 Monocryl interrupted sutures for the deep dermis and subcutaneous tissue. The skin was approximated with 4-0 Nylon simple interrupted and vertical mattress interrupted sutures. Antibiotic ointment was applied to the suture line followed by 4x4 gauze and a Kerlix roll wrapped around the forearm and hand. I then placed an mary ellen wrap for compression. Patient tolerated the procedure well and was sent to PACU in satisfactory condition. Patient will be sent home on antibiotics and pain medication. She will keep her head elevated during the initial postoperative period. Patient will followup in a week for a wound check and for discussion of the pathology report. The sutures will be removed in two weeks. Grafts/Implants Used: AxioFill placental connective tissue powder, Pete Procedure Start Time: 08:11 Procedure Stop Time: 10:24 Complications None. Admit VTE Documentation VTE Present on Admission: No VTE Mechan Device Prophylaxis: SCD's VTE Pharm Prophylaxis ordered?: No Addendum Addendum: Surgery Charges CPT - 37666 ICD-10 - C44.729, C44.622, L85.8, L57.0, Z85.828, Z86.14, Z87.891 10656 C44.622, C44.729, L85.8, L57.0, Z85.828, Z86.14, Z87.891 58128 C44.622, C44.729, L85.8, L57.0, Z85.828, Z86.14, Z87.891
[2022-12-09 10:35] VITALS: BP 140/61; BP 144/65; PULSE 74; RESP 16; TEMP 36.5; O2SAT 95
--- NOTE | 2022-12-09 10:35 | DCINST_ITS ---
Discharge Instructions Diet Discharge Diet: No restrictions and - (encourage nutritional supplementation with protein to help the healing process.) Activity Discharge Activity: May Not Drive, May Shower (wear plastic bag over left leg and right hand when showering.) and - (elevate left leg when sitting. elevate right hand. no heavy lifting.) May shower in (days): 1 (wear plastic bag over left leg and right hand when showering.) Weight Bearing Status: Weight bearing as tolerated Lifting Restrictions: 10 lbs. Keep extremity elevated above heart level: Right Arm and Left Leg Dressing / Incision Call your doctor if your incision/area has: Continuous Slow Oozing, Sudden Increased Bleeding, Increased Pain/ Swelling, Increased Redness, Foul Smelling Discharge and Swelling at the incision site Call your doctor if you observe: Fever of 101 or Higher, Coldness, Increased Pain, Shortness of breath, Chest pain, Calf discomfort and Uncontrolled pain Change Dressing in: do not change dressing (will change operative dressings in the office.) Cleanse incision/area with: Keep Dressing Clean & Dry (wear plastic bag over left leg and right hand when showering.) Follow Up Care Please Follow Up With: Luis F Bergman MD When: wednesday12/15/22. call [phone] for appt. Test Results: Test results from this visit will be discussed in further detail at your follow- up appointment, if applicable. Discharge Plan Admission Primary Reason for Your Visit: excision actinic keratoses with atypia left lat knee and dorsum right hand Attending Provider: Luis F Bergman Primary Care Provider: Carson Kennedy Discharge Orders/Prescriptions Prescriptions: New doxycycline hyclate 100 mg capsule 100 mg PO BID Qty: 20 0RF L.acidoph,saliva-B.bif-S.therm [Acidophilus Probiotic Blend] 175 mg capsule 1 cap PO DAILY Qty: 30 0RF oxycodone-acetaminophen [Percocet] 5-325 mg tablet 1 tab PO Q6H PRN (Reason: pain (scale score 7-10)) 7 Days Qty: 28 0RF Rx Instructions: 28 tabs (twenty-eight) Continued amlodipine 2.5 mg tablet 2.5 mg PO DAILY (DME) oxygen-air delivery systems Device See Rx Instructions .Route Rx Instructions: As directed 3L at night trazodone 50 mg tablet 50 mg PO QHS Rx Instructions: 1/2 tab at bedtime Myrbetriq 25 mg tablet extended release 24 hr 25 mg PO DAILY (DME) nebulizer and compressor [Comp-Air Nebulizer Compressor] Device See Rx Instructions .Route Rx Instructions: As directed calcium carbonate 500 MG tablet 250 mg PO BID simvastatin 20 MG tablet 20 mg PO LUNCH aspirin 81 MG tablet,chewable 81 mg PO DAILY@0800 magnesium 250 MG tablet 400 mg PO BID hydroxychloroquine 200 MG tablet 200 mg PO BIDCM Centrum Silver 1 EACH tablet 1 ea PO DAILY Probiotic 1 EACH capsule 1 ea PO DAILY omeprazole 20 mg capsule,delayed release(DR/EC) 40 mg PO BID folic acid 1 mg Tablet 2 mg PO LUNCH cholecalciferol (vitamin D3) [Vitamin D3] 50 mcg (2,000 unit) Capsule 50 mcg PO DAILY Trelegy Ellipta 200-62.5-25 mcg Blister With Device 1 inh INHALATION DAILY pramipexole 1 mg tablet 1 mg PO QHS Rx Instructions: 0.5 tab po qam, 1 tab po qpm docusate sodium [Colace] 100 mg capsule 100 mg PO BID Qty: 60 0RF pramipexole 1 mg Tablet 0.5 mg PO LUNCH albuterol sulfate 1.25 mg/3 mL Solution For Nebulization 1.25 mg INHALATION PRN PRN (Reason: SOB) albuterol sulfate 90 mcg/actuation Hfa Aerosol Inhaler 1 inh INHALATION Q6H PRN (Reason: SOB) Held Eliquis 2.5 mg tablet 2.5 mg PO BID Hold Instructions: Resume on 12/10/22. Referrals / Follow Up: Luis F Bergman MD [Med Staff - Active Staff] - (followup 12/15/22) Carson Kennedy MD [Primary Care Provider] - Disposition Disposition (needs filled in before D/C Order can be placed): Home, Self Care
[2022-12-09 10:45] VITALS: BP 144/58; BP 144/65; PULSE 74; RESP 18; O2SAT 93
[2022-12-09 11:00] VITALS: BP 144/65; BP 145/58; PULSE 76; RESP 16; O2SAT 96
[2022-12-09 11:05] VITALS: BP 144/65; BP 147/59; PULSE 76; RESP 16; TEMP 36.6; O2SAT 95
[2022-12-09 12:27] VITALS: BP 144/65; BP 154/61; PULSE 81; RESP 16; TEMP 36.7; O2SAT 95
== END 2022-12-09 13:01 | disposition home or self-care (01) ==
LOC: SDC 06:04 → AC 06:05
PROVIDERS: PCP Family Medicine; Referring Provider Surgery; Visit Provider Surgery
PROC: (CPT 14021; principal; 2022-12-09 07:15)
DX: C44.729 Squamous cell carcinoma of skin of left lower limb, including hip (principal); J43.9 Emphysema, unspecified; I11.0 Hypertensive heart disease with heart failure; I50.9 Heart failure, unspecified; I48.91 Unspecified atrial fibrillation; C44.622 Squamous cell carcinoma of skin of right upper limb, including shoulder; L57.0 Actinic keratosis; L85.8 Other specified epidermal thickening; E78.00 Pure hypercholesterolemia, unspecified; K21.9 Gastro-esophageal reflux disease without esophagitis; Z79.82 Long term (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 aspirin; Z79.01 Long term (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; Z79.899 Other long term (current) drug therapy; Z85.828 Personal history of other malignant neoplasm of skin; Z87.891 Personal history of nicotine dependence; Z86.14 Personal history of Methicillin resistant Staphylococcus aureus infection; Z99.81 Dependence on supplemental oxygen
CPT/HCPCS: 14021; 15240; 11623; 00400; 88305; 88331; 88332; J7120; J2405

== ENCOUNTER → 2022-12-24 | Outpatient (CLI) | payer MEDICARE, OTHER, SELFPAY ==
--- NOTE | 2022-12-24 14:03 | VDLE_ITS ---
Reason For Study: Left Leg Swelling RIGHT LEFT CFV is compressible, spontaneous, phasic, GSV is normal. competent and demonstrates normal CFV is compressible, spontaneous, phasic, augmentation. competent, and demonstrates normal Procedure augmentation. This is a venous duplex using B-mode, color FV is compressible, spontaneous, phasic, flow and spectral Doppler. competent and demonstrates normal Exam performed in department. augmentation. The exam was diagnostic. POP V is compressible, spontaneous, phasic, A preliminary report was called and/or faxed competent and demonstrates normal to Mayuri Garcia office. augmentation. T/P Trunk is compressible. PTV is compressible. LT PerV is compressible. VL/Venous Duplex US, Unilateral Interpretation Summary Deep veins of the left lower extremity are patent and compressible segmentally. There is no evidence of left lower extremity deep vein thrombosis. The left great saphenous vein amador ears patent and compressible segmentally. Ordering Physician: Mayuri Garcia Referring Physician: Carson Kennedy Performed By: Luis Carlos Hillman RVT
== END | disposition home or self-care (01) ==
LOC: CVS 14:03
PROVIDERS: PCP Family Medicine; Referring Provider Nurse Practitioner Family; Visit Provider Nurse Practitioner Family
DX: R60.0 Localized edema (principal); M79.89 Other specified soft tissue disorders
CPT/HCPCS: 93971

== ENCOUNTER 2023-02-15 11:23 | Day surgery (SDC) | payer MEDICARE, OTHER, SELFPAY ==
[2023-02-15] VITALS (8 sets, daily range): BP systolic 131–161; BP diastolic 59–67; PULSE 60–71; RESP 16–18; TEMP 36.9–37.7; O2SAT 88–97; BMI 22.4
--- NOTE | 2023-02-15 | LES_PTH ---
PATIENT: JUSTIN VALDOVINOS [place] [facility] [id number] AGE/SX: 87/F ROOM: RE02/15/[address]: Dr. Luis F Bergman MD : [id number] BED: DIS: 02/15/2023 SPEC #: [id number] RECD: 02/15/23 14:22 STATUS: GUERO REMBERTO #: [id number] DIMA: 02/15/23 00:[address]: Luis F Bergman DEPT: SURGICAL PATHOLOGY RECD BY: Amy Monteiro ENTERED: 02/15/23 15:04 SP TYPE: Lesion OTHR DR: Dr. Carson Kennedy MD Tissues: A - Skin of knee, NOS B - Skin of knee, NOS Procedures: Frozen Section (charge) Surgery Specimen Level IV HEADER OPERATION: Excision ulcerated lesion medial knee with frozen section PRE-OP DIAGNOSIS: Ulcerated lesion left medial knee TISSUE SUBMITTED: A - Ulcerated lesion left medial knee, frozen section, B - Invasive squamous cell cancer left medial knee, suture childers 12 o'clock FROZEN SECTION DIAGNOSIS A. Left medial knee lesion, biopsy: Invasive squamous cell carcinoma. SJ:jeremy 02/17/2023 MICROSCOPIC DIAGNOSIS A. Left medial knee ulcerated lesion, excisional biopsy: Well differentiated invasive squamous cell carcinoma. B. Left medial knee squamous cell carcinoma, excisional biopsy: Well differentiated invasive squamous cell carcinoma, completely excised. Solar keratosis and solar elastosis. Dermal chronic inflammation. See comment. SJ:jeremy 02/17/2023 COMMENT B. The tumor measures 2.0 cm in greatest width and up to the depth of 0.5 cm. Perineural or lymph-vascular invasion is not identified. The tumor is 1.2 cm away from the closest 12 to 3 o'clock and 3 to 6 o'clock margin. The deep margin is 0.4 cm away from the tumor. This case is discussed with Dr. Rodriguez on 03/24/2023 Case has been reviewed in consultation with Dr. Germain who concurs with the above diagnosis. IDC:AM MICROSCOPIC DESCRIPTION Slides are reviewed. GROSS DESCRIPTION A - Received fresh for frozen section diagnosis labeled with the patient's name is a specimen designated ulcerated lesion left medial knee. The specimen consists of a piece of skin measuring 2.5 x 0.3 x 0.3 cm. The entire specimen is submitted for frozen section diagnosis in one cassette. / ANDREA:jeremy 02/15/2023 B - Received in fixative is one container labeled with the patient's name and designated invasive squamous cell cancer left medial knee, suture childers 12 o'clock. The specimen consists of a trina-shaped piece of velásquez-white skin measuring 6.0 x 5.0 cm and up to 0.5 cm in thickness. An area of ulceration is present on the surface measuring 2.0 x 2.0 cm. An incision is noted consistent with site of specimen A. A suture is present identifying the specimen as 12 o'clock. The specimen is inked as follows: 12 to 3 o'clock - black, 3 to 6 o'clock - blue, 6 to 9 o'clock - green, 9 to 12 o'clock - yellow and deep margin - red. The specimen is serially sectioned and submitted entirely in ten cassettes from 3 o'clock to 9 o'clock position. / ANDREA:jeremy 02/16/2023 TC:0 CPT: 39729 x2, 46453
[2023-02-15] MEDS: Vancomycin IV 1,000 MG/200 ML BAG 200 MG IV (12:00)
[2023-02-15] MEDS: Lactated Ringers 1,000 ML 15 ML IV (12:10)
[2023-02-15] MEDS: Lidocaine 1% /Epi 1:100 (20ml) 20 ML Vial (13:48)
--- NOTE | 2023-02-15 14:01 | PCM.HP.BLA ---
History and Physical Date of Admission: 02/15/23 HISTORY OF PRESENT ILLNESS 87 year old woman presents with a lesion left medial knee that has increased in size over the last couple of months and has developed painful ulceration. 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 In November 2022, I removed a cutaneous horn lesion from her left lateral knee which was actinic keratosis with atypia. She denies fever. She denies trauma. She denies recent infection. She denies any bleeding. She presents today for excision of this lesion left medial knee. Clinically it looks suspicious for carcinoma. PAST MEDICAL HISTORY Actinic keratoses Ambulates with cane Anxiety Arthritis Asthma Back pain Breast lump Cardiology follow-up encounter Carpal tunnel syndrome COPD (chronic obstructive pulmonary disease) Cutaneous horn Diarrhea Emphysema, unspecified Former smoker Gastric reflux High cholesterol History of CHF (congestive heart failure) History of echocardiogram History of edema History of hiatal hernia History of MRSA infection History of pain when walking History of ulceration Hx of cardiac pacemaker Hypertension IBS (irritable bowel syndrome) Incontinence of urine Loss of hearing Neoplasm of skin of ankle Neoplasm of skin of hand Neoplasm of skin of lower leg On home oxygen therapy Open wound Osteoarthritis Other complications of skin graft (allograft) (autograft) Personal history of skin cancer Restless legs Rheumatoid arthritis Skin cancer 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 Unspecified open wound, left knee, initial encounter Unspecified open wound, right knee, initial encounter Walker as ambulation aid Wears glasses Wears partial dentures PAST SURGICAL HISTORY History of excision of lesion History of lumbar laminectomy History of skin graft History of squamous cell carcinoma excision Hx of colonoscopy Hx of left cataract extraction Hx of left knee surgery Hx of right cataract extraction Hx of toe surgery Hx of tonsillectomy Hx of total hip arthroplasty ALLERGIES Sulfa (Sulfonamide Antibiotics) MEDICATIONS aspirin 81 mg chewable tablet 81 mg PO DAILY@0800 11/03/16 [History Confirmed 12/08/22] calcium carbonate 500 mg calcium (1,250 mg) tablet 250 mg PO BID 11/03/16 [History Confirmed 12/08/22] hydroxychloroquine 200 mg tablet 200 mg PO BIDCM 11/03/16 [History Confirmed 12/08/22] lactobacillus comb no.10 20 billion cell capsule (Probiotic) 1 ea PO DAILY 11/03/16 [History Confirmed 12/08/22] magnesium 250 mg tablet 400 mg PO BID 11/03/16 [History Confirmed 12/08/22] serpxnjb-kbw-cglxv acid 0.4 mg-lycopene 300 mcg-lutein 250 mcg tablet (Centrum Silver) 1 ea PO DAILY 11/03/16 [History Confirmed 12/08/22] simvastatin 20 mg tablet 20 mg PO LUNCH 11/03/16 [History Confirmed 12/08/22] cholecalciferol (vitamin D3) 50 mcg (2,000 unit) capsule (Vitamin D3) 50 mcg PO DAILY 06/05/22 [History Confirmed 12/08/22] fluticasone fur. 200 mcg-umeclid 62.5 mcg-vilant 25 mcg inhalat.powder (Trelegy Ellipta) 1 inh inhalation DAILY 06/05/22 [History Confirmed 12/09/22] folic acid 1 mg tablet 2 mg PO LUNCH 06/05/22 [History Confirmed 12/08/22] amlodipine 2.5 mg tablet 2.5 mg PO DAILY 07/07/22 [History Confirmed 12/09/22] mirabegron 25 mg tablet,extended release 24 hr (Myrbetriq) 25 mg PO DAILY 07/07/22 [History Confirmed 12/08/22] nebulizer and compressor (Comp-Air Nebulizer Compressor) 07/07/22 [History Confirmed 12/08/22] omeprazole 20 mg capsule,delayed release 40 mg PO BID 07/07/22 [History Confirmed 12/09/22] oxygen-air delivery systems 07/07/22 [History Confirmed 12/08/22] pramipexole 1 mg tablet 1 mg PO QHS 07/07/22 [History Confirmed 12/08/22] trazodone 50 mg tablet 50 mg PO QHS 07/07/22 [History Confirmed 12/08/22] docusate sodium 100 mg capsule (Colace) 100 mg PO BID constipation #60 caps 07/25/22 [Rx Confirmed 12/08/22] apixaban 2.5 mg tablet (Eliquis) 2.5 mg PO BID 09/17/22 [History Confirmed 12/08/22] albuterol sulfate 1.25 mg/3 mL solution for nebulization 1.25 mg inhalation PRN PRN SOB 12/03/22 [History Confirmed 12/08/22] albuterol sulfate 90 mcg/actuation aerosol inhaler 1 inh inhalation Q6H PRN SOB 12/03/22 [History Confirmed 12/08/22] pramipexole 1 mg tablet 0.5 mg PO LUNCH 12/03/22 [History Confirmed 12/08/22] L.acidophil,salivari-Bifido bifidum-Strep thermoph 175 mg capsule (Acidophilus Probiotic Blend) 1 cap PO DAILY #30 caps 12/09/22 [Rx] doxycycline hyclate 100 mg capsule 100 mg PO BID #20 caps 12/09/22 [Rx] imiquimod 5 % topical cream packet 1 applic topical 5XW 6 weeks #30 ea 12/09/22 [Rx Confirmed 12/09/22] oxycodone-acetaminophen 5 mg-325 mg tablet (Percocet) 1 tab PO Q6H PRN pain (scale score 7-10) 7 days #28 tabs 12/09/22 [Rx] FAMILY HISTORY Mother Cancer multiple myeloma, diagnosed later in lifeOther Arthritis Heart disease High cholesterol Myocardial infarction Osteoarthritis Respiratory disease SOCIAL HISTORY Smoking Status: Former smoker quit date: 07/26/1956 Tobacco: How many years used: 20 alcohol intake: never substance use type: does not use REVIEW OF SYSTEMS General - Denies fever and weight loss.? Has fatigue. Eyes - Denies cataracts and glaucoma. ENT - Denies nasal congestion and sore throat. Endocrine - Has excessive thirst and urination. Skin - Has personal history of skin cancer.? She has new ulcerated lesion left medial knee. She has scattered actinic lesions dorsum left hand extending to the wrist.? Musculoskeletal - Has joint pain, joint stiffness, weakness of muscles and joints, back pain, and arthritis. Neuro - Denies headaches. Cardiovascular - Denies chest pain, fatigue, and shortness of breath with exertion.? Has pacemaker. Psych - Denies anxiety and depression. Respiratory - Denies chronic cough and shortness of breath.? Has COPD.? Patient is a former smoker. Gastrointestinal - Denies nausea, vomiting, diarrhea.? Has constipation. Has GERD.? Has IBS. Hematologic - Denies abnormal bruising and bleeding. Genitourinary - Denies hematuria and urinary frequency. PHYSICAL EXAMINATION General - Alert and Oriented. HEENT - PERRL. EOMI.? Throat is clear.? No suspicious lesions noted. Neck - Supple and nontender.? No cervical adenopathy.? No suspicious lesions noted. Lungs - Clear to auscultation. Heart - Regular rate and rhythm. Abdomen - Soft and nondistended. Extremities - FROM. No axillary adenopathy.? Radial pulses are palpable.? No inguinal adenopathy.? Dorsalis pedis pulses are palpable? On the left anteromedial leg and right medial leg are healed skin grafts after excision squamous cell carcinomas.? On the right medial ankle, the skin graft is almost healed. Has a small central ulceration that is responding to local wound care. ? On the left medial knee is a large ulcerated lesion that is tender to palpation. It is raised in configuration. Measures 2.5 cm. Has irregular borders.? Lesion is firm.? Neuro - CN II-XII grossly intact. Psych - Normal mood and affect. ASSESSMENT 1. 2.5 cm painful ulcerated lesion left medial knee. 2. Personal history of skin cancer. 3.? History of MRSA. 4.? Former smoker. PLAN The lesion left medial knee is clinically suspicious for squamous cell carcinoma. Recommend excision of this ulcerated lesion and send it to Pathology as a frozen section for analysis to establish a diagnosis. If carcinoma is present, then further excision will be done with a 1 cm margin in all directions. Reconstruction will be with a local skin flap, possible skin graft. Her skin is thin and the sutures may rip through the skin. If that is the case, then will proceed with skin graft. Will have an mary ellen wrap placed to help minimize swelling postop to allow the incisions to heal. Surgery can be done on an outpatient basis under local anesthesia and IV sedation. Patient was informed of the risks and complications of the procedure including alternatives to surgery.? These were discussed with the patient personally.? Patient voices understanding and wishes to proceed. Some of the risks and complications were included in a form from the [employer]. Potential risks and complications included but not inclusive of bleeding, infection, hematoma, bruising, swelling, loss of sensation to skin, partial or total loss of the skin graft if performed, wound breakdown, need for wound care, poor scarring, poor aesthetic outcome, intra operative cardiac or neurologic events, DVT, PE, and reaction to anesthesia. ?
[2023-02-15] MEDS: Mupirocin Ointment 22gm Tube 1 APPLIC (15:43)
--- NOTE | 2023-02-15 15:54 | PCM.OPRPT ---
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 2.5 cm painful ulcerated lesion left medial knee. 2. Personal history of skin cancer. 3. History of MRSA. 4. Former smoker. Post-Operative Diagnosis: 1. 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 2. Personal history of skin cancer. 3. History of MRSA. 4. Former smoker. 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 Reconstruction with rhomboid transposition skin flap (40.5 cm2). Description of Surgical Findings:: 87 year old woman presents with a lesion left medial knee that has increased in size over the last couple of months and has developed painful ulceration. 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 In November 2022, I removed a cutaneous horn lesion from her left lateral knee which was actinic keratosis with atypia. She denies fever. She denies trauma. She denies recent infection. She denies any bleeding. She presents today for excision of this lesion left medial knee. Clinically it looks suspicious for carcinoma. Patient was informed of the risks and complications of the procedure including alternatives to surgery. These were discussed with the patient personally. Patient voices understanding and wishes to proceed. Potential risks and complications included but not inclusive of bleeding, infection, seroma, hematoma, bruising, swelling, prolonged need for drains, loss of sensation to skin, partial or complete loss of skin flap and/or graft, wound breakdown, need for wound care, poor scarring, poor aesthetic outcome, intra operative cardiac or neurologic events, DVT, PE, and reaction to anesthesia. 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 I used Pete absorbable hemostat. Reference Number - [id number]. Lot Number - [id number]. Expiration - September 22, 2027. Surgeon: Luis F Bergman MD medical reception: None Type of Anesthesia: Local MAC (xylocaine with epinephrine and IV sedation) Anesthesiologist: Jason Honeycutt MD and Pepe Kaufman CRNA. Specimen's removed: 1. Ulcerated lesion left medial knee to Pathology as a frozen section. 2. 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 Drains: None. Estimated Blood Loss (mL): 20. Description of Procedure: Patient was taken to OR in supine position and was given IV sedation. The left knee and lower anterior abdominal wall and flank areas were prepped and draped in the usual fashion. SCD's were placed for DVT prophylaxis. Perioperative antibiotics were given intravenously. The ulcerated lesion left medial knee was infiltrated with xylocaine and epinephrine. After waiting 5 minutes for the anesthetic to take effect, I obtained a full thickness elliptical excision which included some of the ulceration and some adjacent normal tissue. It was sent to Pathology as a frozen section for analysis to rule out carcinoma. Frozen section showed an invasive squamous cell carcinoma. Further excision will be done as I monroe out a 1 cm margin in all directions. I marked out rhomboid design around the lesion. Adjacent to the excised wound I marked out a rhomboid flap to be used to close the wound defect. These markings were infiltrated as well with xylocaine with epinephrine. Incisions were made down into the subcutaneous tissue as a full thickness excision. After excision, the base of the wound was soft with no gross evidence of residual cancer. I palpated the bottom of the excised lesion and it felt smooth with no gross evidence of residual cancer. A suture was marked out at the 12 oclock position for pathology orientation. The lesion was sent to Pathology for analysis to rule out carcinoma at the margins. The size of the carcinoma wound left medial knee is 4.5 x 4.5 cm or 20.25 cm2. The markings for the rhomboid flap were incised and the flap was elevated at the level of the underlying deep subcutaneous tissue/fascia. It was easily transposed into the wound defect with minimal tension and minimal distortion. Hemostasis was obtained with electrocautery. I sprayed Pete absorbable hemostat into the wound to minimize seroma formation. The wound was then closed in a layered fashion with 3-0 Monocryl interrupted sutures for the deep subcutaneous tissue and fascia. The deep dermis and subcutaneous tissue was approximated with3-0 Monocryl interrupted sutures. The skin was approximated with 4-0 Prolene vertical mattress and simple interrupted sutures. No compromise noted on the skin flap. Antibiotic ointment was applied to the suture line followed 4x4 gauze and Medipore tape and an mary ellen compression wrap. The size of the wound and the size of the flap needed to close the defect are 40.5 cm2. Patient tolerated the procedure well and was sent to PACU in satisfactory condition. Patient will be sent home on antibiotics and pain medication. She will keep her left leg elevated when sitting. She will minimize standing. Ambulation is ok. Patient will followup in a week for a wound check and for discussion of the pathology report. The sutures will be removed in 2-3 weeks. Grafts/Implants Used: None. Procedure Start Time: 14:14 Procedure Stop Time: 15:46 Complications None. Admit VTE Documentation VTE Present on Admission: No VTE Mechan Device Prophylaxis: SCD's VTE Pharm Prophylaxis ordered?: No Addendum Addendum: Surgery Charges CPT - 86209 ICD-10 - C44.729, D49.2, Lo7.822, Z86.14, Z87.891
--- NOTE | 2023-02-15 16:36 | DCINST_ITS ---
Discharge Instructions Diet Discharge Diet: No restrictions and - (encourage nutritional supplementation with protein to help the healing process.) Activity Discharge Activity: May Not Drive, May Shower (place a plastic bag over left leg when showering.) and - (elevate left leg when sitting. Minimize standing. May ambulate.) May shower in (days): 1 (place a plastic bag over left leg when showering.) Weight Bearing Status: Weight bearing as tolerated Keep extremity elevated above heart level: Left Leg Dressing / Incision Call your doctor if your incision/area has: Continuous Slow Oozing, Sudden Increased Bleeding, Increased Pain/ Swelling, Increased Redness, Foul Smelling Discharge and Swelling at the incision site Call your doctor if you observe: Fever of 101 or Higher, Coldness, Increased Pain, Shortness of breath, Chest pain, Calf discomfort and Uncontrolled pain Change Dressing in: 1 week (will change the operative dressing at the Wound Center.) Cleanse incision/area with: - (place a plastic bag over the left leg when showering.) Follow Up Care Please Follow Up With: Luis F Bergman MD When: wednesday02/22/23 at the wound center at 945 am. Test Results: Test results from this visit will be discussed in further detail at your follow- up appointment, if applicable. Discharge Plan Admission Primary Reason for Your Visit: excision ulcerated squamous cell carcinoma left medial knee Attending Provider: Luis F Bergman Primary Care Provider: Carson Kennedy Instructions Additional Instructions / Restrictions: Patient has Percocet at home that she can use for pain relief if needed. Discharge Orders/Prescriptions Prescriptions: New doxycycline hyclate 100 mg capsule 100 mg PO BID Qty: 20 0RF Continued amlodipine 2.5 mg tablet 2.5 mg PO DAILY (DME) oxygen-air delivery systems Device See Rx Instructions .Route Rx Instructions: As directed 3L at night trazodone 50 mg tablet 50 mg PO QHS Rx Instructions: 1/2 tab at bedtime Myrbetriq 25 mg tablet extended release 24 hr 25 mg PO DAILY (DME) nebulizer and compressor [Comp-Air Nebulizer Compressor] Device See Rx Instructions .Route Rx Instructions: As directed calcium carbonate 500 MG tablet 250 mg PO BID simvastatin 20 MG tablet 20 mg PO LUNCH magnesium 250 MG tablet 400 mg PO BID hydroxychloroquine 200 MG tablet 200 mg PO BIDCM Centrum Silver 1 EACH tablet 1 ea PO DAILY Probiotic 1 EACH capsule 1 ea PO DAILY omeprazole 20 mg capsule,delayed release(DR/EC) 40 mg PO DAILY folic acid 1 mg Tablet 2 mg PO LUNCH cholecalciferol (vitamin D3) [Vitamin D3] 50 mcg (2,000 unit) Capsule 50 mcg PO DAILY Trelegy Ellipta 200-62.5-25 mcg Blister With Device 1 inh INHALATION DAILY pramipexole 1 mg tablet 1 mg PO QHS Rx Instructions: 0.5 tab po qam, 1 tab po qpm docusate sodium [Colace] 100 mg capsule 100 mg PO BID Qty: 60 0RF pramipexole 1 mg Tablet 0.5 mg PO LUNCH albuterol sulfate 1.25 mg/3 mL Solution For Nebulization 1.25 mg INHALATION PRN PRN (Reason: SOB) albuterol sulfate 90 mcg/actuation Hfa Aerosol Inhaler 1 inh INHALATION Q6H PRN (Reason: SOB) oxycodone-acetaminophen [Percocet] 5-325 mg tablet 1 tab PO Q6H PRN (Reason: pain (scale score 7-10)) 7 Days Qty: 28 0RF Rx Instructions: 28 tabs (twenty-eight) ferrous sulfate [Feosol] 325 mg (65 mg iron) tablet 325 mg PO QHS L.acidoph,saliva-B.bif-S.therm [Acidophilus Probiotic Blend] 175 mg capsule 1 cap PO DAILY Qty: 30 0RF Held Eliquis 2.5 mg tablet 2.5 mg PO BID Hold Instructions: Resume on 02/16/23. aspirin 81 MG tablet,chewable 81 mg PO DAILY@0800 Hold Instructions: Resume on 02/17/23. Referrals / Follow Up: Carson Kennedy MD [Primary Care Provider] - Disposition Disposition (needs filled in before D/C Order can be placed): Home, Self Care
--- NOTE | 2023-02-17 23:17 | PCM.CONS.GEN ---
HPI Consult Data Date of Consult: 02/17/23 HPI Narrative HPI Narrative: JUSTIN VALDOVINOS, is a 87 F who presents [facility] Medical History (Updated 02/12/23 @ 16:37 by Karla Crane) Actinic keratoses Ambulates with cane Anxiety Arthritis Asthma Back pain Breast lump Cardiology follow-up encounter Carpal tunnel syndrome COPD (chronic obstructive pulmonary disease) Cutaneous horn Diarrhea Emphysema, unspecified Former smoker Gastric reflux High cholesterol History of CHF (congestive heart failure) History of echocardiogram History of edema History of hiatal hernia History of MRSA infection History of pain when walking History of ulceration Hx of cardiac pacemaker Hypertension IBS (irritable bowel syndrome) Incontinence of urine Loss of hearing Neoplasm of skin of ankle Neoplasm of skin of hand Neoplasm of skin of knee Neoplasm of skin of lower leg Neoplasm of skin of lower leg On home oxygen therapy Open wound Osteoarthritis Other complications of skin graft (allograft) (autograft) Personal history of skin cancer Restless legs Rheumatoid arthritis Skin cancer Skin ulcer of left knee with fat layer exposed 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 Unspecified open wound, left knee, initial encounter Unspecified open wound, right knee, initial encounter Walker as ambulation aid Wears glasses Wears partial dentures Home Medications aspirin 81 mg chewable tablet 81 mg PO DAILY@0800 11/03/16 [History Last Taken 02/13/23] calcium carbonate 500 mg calcium (1,250 mg) tablet 250 mg PO BID 11/03/16 [History Last Taken 06/11/22] hydroxychloroquine 200 mg tablet 200 mg PO BIDCM 11/03/16 [History Last Taken 06/04/22] lactobacillus comb no.10 20 billion cell capsule (Probiotic) 1 ea PO DAILY 11/03/16 [History Last Taken 06/11/22] magnesium 250 mg tablet 400 mg PO BID 11/03/16 [History Last Taken 06/11/22] rhzebjef-hns-ffxhj acid 0.4 mg-lycopene 300 mcg-lutein 250 mcg tablet (Centrum Silver) 1 ea PO DAILY 11/03/16 [History Last Taken Unknown] simvastatin 20 mg tablet 20 mg PO LUNCH 11/03/16 [History Last Taken 06/11/22] cholecalciferol (vitamin D3) 50 mcg (2,000 unit) capsule (Vitamin D3) 50 mcg PO DAILY 06/05/22 [History Last Taken 06/04/22] fluticasone fur. 200 mcg-umeclid 62.5 mcg-vilant 25 mcg inhalat.powder (Trelegy Ellipta) 1 inh inhalation DAILY 06/05/22 [History Last Taken 02/15/23] folic acid 1 mg tablet 2 mg PO LUNCH 06/05/22 [History Last Taken 06/11/22] amlodipine 2.5 mg tablet 2.5 mg PO DAILY 07/07/22 [History Last Taken 02/15/23] mirabegron 25 mg tablet,extended release 24 hr (Myrbetriq) 25 mg PO DAILY 07/07/22 [History Last Taken Unknown] nebulizer and compressor (Comp-Air Nebulizer Compressor) 07/07/22 [History Last Taken Unknown] omeprazole 20 mg capsule,delayed release 40 mg PO DAILY 07/07/22 [History Last Taken 02/15/23] oxygen-air delivery systems 07/07/22 [History Last Taken Unknown] pramipexole 1 mg tablet 1 mg PO QHS 07/07/22 [History Last Taken Unknown] trazodone 50 mg tablet 50 mg PO QHS 07/07/22 [History Last Taken Unknown] docusate sodium 100 mg capsule (Colace) 100 mg PO BID constipation #60 caps 07/25/22 [Rx Last Taken Unknown] apixaban 2.5 mg tablet (Eliquis) 2.5 mg PO BID 09/17/22 [History Last Taken 02/13/23] albuterol sulfate 1.25 mg/3 mL solution for nebulization 1.25 mg inhalation PRN PRN SOB 12/03/22 [History Last Taken Unknown] albuterol sulfate 90 mcg/actuation aerosol inhaler 1 inh inhalation Q6H PRN SOB 12/03/22 [History Last Taken Unknown] pramipexole 1 mg tablet 0.5 mg PO LUNCH 12/03/22 [History Last Taken Unknown] oxycodone-acetaminophen 5 mg-325 mg tablet (Percocet) 1 tab PO Q6H PRN pain (scale score 7-10) 7 days #28 tabs 12/09/22 [Rx Last Taken Unknown] ferrous sulfate 325 mg (65 mg iron) tablet (Feosol) 325 mg PO QHS 02/12/23 [History Last Taken Unknown] L.acidophil,salivari-Bifido bifidum-Strep thermoph 175 mg capsule (Acidophilus Probiotic Blend) 1 cap PO DAILY #30 caps 02/15/23 [Rx Last Taken Unknown] doxycycline hyclate 100 mg capsule 100 mg PO BID #20 caps 02/15/23 [Rx Last Taken Unknown] Allergy/AdvReac Type Severity Reaction Status Date / Time Sulfa (Sulfonamide Allergy Hives Verified 02/15/23 11:50 Antibiotics) Family History (Reviewed 01/29/23 @ 13:24 by Mayuri Garcia TRAVELING SALES EXECUTIVE, TRAVELING SALES EXECUTIVE-C) Mother Cancer multiple myeloma, diagnosed later in life Other Arthritis Heart disease High cholesterol Myocardial infarction Osteoarthritis Respiratory disease Surgical History (Reviewed 01/29/23 @ 13:24 by Mayuri Garcia TRAVELING SALES EXECUTIVE, TRAVELING SALES EXECUTIVE-C) History of excision of lesion History of lumbar laminectomy History of skin graft History of squamous cell carcinoma excision Hx of colonoscopy Hx of left cataract extraction Hx of left knee surgery Hx of right cataract extraction Hx of toe surgery Hx of tonsillectomy Hx of total hip arthroplasty Hx of total hip arthroplasty Social History (Reviewed 01/29/23 @ 13:24 by Mayuri Garcia TRAVELING SALES EXECUTIVE, TRAVELING SALES EXECUTIVE-C) pets and animals: Yes pets and animals: dog(s) Smoking Status: Former smoker quit date: 07/26/1956 Tobacco: How many years used: 20 alcohol intake: never details: Special Occasions substance use type: does not use what type of physical activity do you participate in: other details: PT 2-3 times a week additional social history: Does Take Aspirin low dose daily
== END 2023-02-15 17:32 | disposition home or self-care (01) ==
LOC: SDC 11:26 → AC 11:27
PROVIDERS: PCP Family Medicine; Referring Provider Surgery; Visit Provider Surgery
PROC: (CPT 14301; principal; 2023-02-15 13:20)
DX: C44.729 Squamous cell carcinoma of skin of left lower limb, including hip (principal); L98.492 Non-pressure chronic ulcer of skin of other sites with fat layer exposed; J43.9 Emphysema, unspecified; I11.0 Hypertensive heart disease with heart failure; I50.9 Heart failure, unspecified; I48.91 Unspecified atrial fibrillation; E78.00 Pure hypercholesterolemia, unspecified; Z87.891 Personal history of nicotine dependence; Z85.828 Personal history of other malignant neoplasm of skin; Z79.51 Long term (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 inhaled steroids; Z79.01 Long term (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; Z79.82 Long term (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 aspirin; Z79.899 Other long term (current) drug therapy; Z94.5 Skin transplant status; K21.9 Gastro-esophageal reflux disease without esophagitis; Z86.14 Personal history of Methicillin resistant Staphylococcus aureus infection
CPT/HCPCS: 14301; 88305; 88331; J7120; J2405

== ENCOUNTER 2023-02-22 09:45 | Outpatient (RCR) | payer MEDICARE, OTHER, SELFPAY ==
[2023-01-25 10:11] VITALS: BP 157/57; PULSE 71; RESP 18; TEMP 36.7
--- NOTE | 2023-01-25 12:04 | PCM.WC.HP ---
History of Present Illness Date of Service: 01/25/23 Chief Complaint: Right medial ankle ulcer and left lateral knee wound History of Wound: 87 year old female is known to me. She has had a couple recent surgeries for excision of squamous cell carcinoma. The right medial ankle skin graft has had some compromise and the left lateral knee skin flap has one edge of compromise. Her care was transferred to the wound center from our office. Surgery on 12/09/22 for excision 1.5 cm cutaneous horn with actinic damage left lateral knee with rhomboid transposition skin flap reconstruction (14.58 cm2) and excision 0.7 cm cutaneous horn with actinic damage and atypia with possible squamous cell carcinoma in situ component dorsum right hand at MP joint index finger with FTSG reconstruction from right volar forearm (7.29 cm2). Surgery on 07/24/22 for excision 6.5 cm nonhealing ulcerated invasive well-differentiated squamous cell carcinoma left anteromedial leg with STSG reconstruction from the lower anterior abdominal wall (63 cm2) and excision 2 cm squamous cell carcinoma right medial leg with STSG reconstruction from the lower anterior abdominal wall (16 cm2) and excision 2.5 cm squamous cell carcinoma right medial ankle with STSG reconstruction from the lower anterior abdominal wall (24.75 cm2). Pathology from 12/09/22 of the left lateral knee biopsy showed superficially invasive well differentiated squamous cell carcinoma, actinic keratosis and mild to moderate atypia, and solar elastosis. Margins negative for carcinoma. the dorsum right hand lesion at MP joint index finger showed superficially invasive well differentiated squamous cell carcinoma, keratoacanthomatous type. Actinic keratosis with mild to moderate atypia and solar elastosis. The margins were negative for carcinoma. Pathology from 07/24/22 showed the right medial leg lesion was an invasive well-differentiated squamous cell carcinoma, with clear margins. The right medial ankle lesion was an invasive well-differentiated squamous cell carcinoma, with clear margins. The left anteromedial leg lesion was an invasive well-differentiated squamous cell carcinoma with associated ulceration. The depth of invasion was 4.5 mm. The anatomic level was V (carcinoma invades subcutaneous tissue). No lymphovascular invasion. No perineural invasion. A wound culture was obtained from the right medial leg skin graft on 08/20/22 which was positive for Proteus mirabilis, MRSA, and Enterococcus faecalis. She was started on Levaquin and Linezolid, but those were held because of her diarrhea. After the diarrhea resolved, she restarted the Linezolid, but she did not tolerating it due to the diarrhea and nausea she was experiencing so it was stopped. She was able to complete the Levaquin. Wound culture obtained on 11/19/22 of a red, inflamed blister on her left lateral foot which was positive for Staphylococcus aureus and she was treated with Doxycycline. Her PET scan has been done. She met with Oncologist and her will follow up with him is in 6 months. She met with Radiation Oncologist to discuss radiation therapy and they are recommending radiation therapy. She would start the radiation therapy after her skin graft areas are healed. Her PET scan is normal, so she would have benefited from local control with Radiation Therapy. I spoke with Dr. Rodriguez's office in mid November and he stated she is out of the window for radiation for her left leg. This was explained to the patient. Ultrasound of left leg was ordered on 12/24/22 and was negative for DVT. Her swelling is slowly resolving. Wound care - Collagen hydrogel covered with adaptic and topped with gauze. Today she states she feels well and denies fever, chills, nausea and vomiting. Progress of Wound: Right medial ankle ulcer is smaller than previous office visit. Left lateral knee is also smaller. She has a lesion on her left medial knee that started as scabby and very painful. It appeared a couple weeks after her last surgery. Will monitor this lesion closely, if it does not improve with conservative therapy over the next several weeks, will have her evaluated by Dr. Bergman. [facility] Medical History (Updated 01/29/23 @ 13:50 by Mayuri Garcia SENIOR QA ANALYST, SENIOR QA ANALYST-C) Actinic keratoses Ambulates with cane Anxiety Arthritis Asthma Back pain Breast lump Cardiology follow-up encounter Carpal tunnel syndrome COPD (chronic obstructive pulmonary disease) Cutaneous horn Diarrhea Emphysema, unspecified Former smoker Gastric reflux High cholesterol History of CHF (congestive heart failure) History of echocardiogram History of edema History of hiatal hernia History of MRSA infection History of pain when walking History of ulceration Hx of cardiac pacemaker Hypertension IBS (irritable bowel syndrome) Incontinence of urine Loss of hearing Neoplasm of skin of ankle Neoplasm of skin of hand Neoplasm of skin of lower leg Neoplasm of skin of lower leg On home oxygen therapy Open wound Osteoarthritis Other complications of skin graft (allograft) (autograft) Personal history of skin cancer Restless legs Rheumatoid arthritis Skin cancer 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 Unspecified open wound, left knee, initial encounter Unspecified open wound, right knee, initial encounter Walker as ambulation aid Wears glasses Wears partial dentures Home Medications aspirin 81 mg chewable tablet 81 mg PO DAILY@0800 11/03/16 [History Last Taken 12/07/22] calcium carbonate 500 mg calcium (1,250 mg) tablet 250 mg PO BID 11/03/16 [History Last Taken 06/11/22] hydroxychloroquine 200 mg tablet 200 mg PO BIDCM 11/03/16 [History Last Taken 06/04/22] lactobacillus comb no.10 20 billion cell capsule (Probiotic) 1 ea PO DAILY 11/03/16 [History Last Taken 06/11/22] magnesium 250 mg tablet 400 mg PO BID 11/03/16 [History Last Taken 06/11/22] tevkgxim-zyv-zpkke acid 0.4 mg-lycopene 300 mcg-lutein 250 mcg tablet (Centrum Silver) 1 ea PO DAILY 11/03/16 [History Last Taken Unknown] simvastatin 20 mg tablet 20 mg PO LUNCH 11/03/16 [History Last Taken 06/11/22] cholecalciferol (vitamin D3) 50 mcg (2,000 unit) capsule (Vitamin D3) 50 mcg PO DAILY 06/05/22 [History Last Taken 06/04/22] fluticasone fur. 200 mcg-umeclid 62.5 mcg-vilant 25 mcg inhalat.powder (Trelegy Ellipta) 1 inh inhalation DAILY 06/05/22 [History Last Taken 12/09/22] folic acid 1 mg tablet 2 mg PO LUNCH 06/05/22 [History Last Taken 06/11/22] amlodipine 2.5 mg tablet 2.5 mg PO DAILY 07/07/22 [History Last Taken 12/09/22] mirabegron 25 mg tablet,extended release 24 hr (Myrbetriq) 25 mg PO DAILY 07/07/22 [History Last Taken Unknown] nebulizer and compressor (Comp-Air Nebulizer Compressor) 07/07/22 [History Last Taken Unknown] omeprazole 20 mg capsule,delayed release 40 mg PO BID 07/07/22 [History Last Taken 12/09/22] oxygen-air delivery systems 07/07/22 [History Last Taken Unknown] pramipexole 1 mg tablet 1 mg PO QHS 07/07/22 [History Last Taken Unknown] trazodone 50 mg tablet 50 mg PO QHS 07/07/22 [History Last Taken Unknown] docusate sodium 100 mg capsule (Colace) 100 mg PO BID constipation #60 caps 07/25/22 [Rx Last Taken Unknown] apixaban 2.5 mg tablet (Eliquis) 2.5 mg PO BID 09/17/22 [History Last Taken 12/07/22] albuterol sulfate 1.25 mg/3 mL solution for nebulization 1.25 mg inhalation PRN PRN SOB 12/03/22 [History Last Taken Unknown] albuterol sulfate 90 mcg/actuation aerosol inhaler 1 inh inhalation Q6H PRN SOB 12/03/22 [History Last Taken Unknown] pramipexole 1 mg tablet 0.5 mg PO LUNCH 12/03/22 [History Last Taken Unknown] L.acidophil,salivari-Bifido bifidum-Strep thermoph 175 mg capsule (Acidophilus Probiotic Blend) 1 cap PO DAILY #30 caps 12/09/22 [Rx Last Taken Unknown] oxycodone-acetaminophen 5 mg-325 mg tablet (Percocet) 1 tab PO Q6H PRN pain (scale score 7-10) 7 days #28 tabs 12/09/22 [Rx Last Taken Unknown] Allergy/AdvReac Type Severity Reaction Status Date / Time Sulfa (Sulfonamide Allergy Hives Verified 01/12/23 11:16 Antibiotics) Family History Mother Cancer multiple myeloma, diagnosed later in life Other Arthritis Heart disease High cholesterol Myocardial infarction Osteoarthritis Respiratory disease Surgical History History of excision of lesion History of lumbar laminectomy History of skin graft History of squamous cell carcinoma excision Hx of colonoscopy Hx of left cataract extraction Hx of left knee surgery Hx of right cataract extraction Hx of toe surgery Hx of tonsillectomy Hx of total hip arthroplasty Hx of total hip arthroplasty Social History pets and animals: Yes pets and animals: dog(s) Smoking Status: Former smoker quit date: 07/26/1956 Tobacco: How many years used: 20 alcohol intake: never details: Special Occasions substance use type: does not use what type of physical activity do you participate in: other details: PT 2-3 times a week additional social history: Does Take Aspirin low dose daily ROS Constitutional Constitutional: Denies fatigue, fever(s) or headache(s) Eyes Eyes: Reports requires corrective lenses ENT HEENT: Reports none Cardiovascular Cardiovascular: Reports leg edema; Denies chest pain, dyspnea or nausea Respiratory/Chest Respiratory/Chest: Reports as per HPI Gastrointestinal Gastrointestinal: Reports systems reviewed and no addt'l complaints, except as documented Genitourinary Genitourinary: Reports systems reviewed and no addt'l complaints, except as documented Musculoskeletal Musculoskeletal: Reports arthralgias, difficulty walking, joint pain, joint stiffness and myalgias Integumentary Integumentary: Reports as per HPI and skin pain Neurologic Neurologic: Reports none Psychiatric Psychiatric: Reports none Endocrine Endocrinology: Reports systems reviewed and no addt'l complaints, except as documented Vital Signs Vital Signs Vital Signs: 01/25/23 10:11 Temperature 98.1 F Temperature Source Temporal Pulse Rate 71 Respiratory Rate 18 Blood Pressure 157/57 H Blood Pressure Mean 90 Blood Pressure Source Monitor Blood Pressure Position Sitting Blood Pressure Location Left Arm Oxygen Delivery Method Room Air Physical Exam Const alert, oriented x3 and no apparent distress General Appearance: cooperative Orientation / Consciousness: awake HEENT normocephalic Head and Scalp: atraumatic Eyes PERRL General Eye: normal appearance of both eyes Resp normal respiratory effort, normal air movement and clear to auscultation bilaterally Effort and Inspection: able to speak in complete sentences Cardio regular rate GI soft to palpation and non-tender Back/Spine normal ROM Extremity normal capillary refill General Extremity: edema bilateral lower extremity Details: mild Peripheral Pulses: Yes pulses 2+ throughout Skin Skin Narrative: She has actinic areas on her dorsal left hand and wrist including a cutaneous horn that she has been placing Aldara cream. These sites are starting to show improvement. The left wrist cutaneous horn has fallen off since her last visit. Will continue to monitor these areas closely. Wound Narrative: Right medial ankle ulcer is smaller in size with beefy pink wound bed Left lateral knee ulcer at the edge of the skin flap is smaller in size with a beefy pink wound bed. Right dorsal hand skin graft is healed today. Left medial knee lesion is ulcerated and very painful to palpation. Debridement Note Debridement Note Wound debrided: medial ankle ulcer Laterality: Right Wound Grade/Stage: Stage II Type of Debridement: Excisional debridement Anesthesia Used: 5% Lidocaine Gel Depth: Down to and including healthy tissue and in the subcutaneous layer Percentage of wound debrided: 100 Instrument Used: 5mm curette Tissue Removed: Devitalized tissue and slough Severity: Fat Layer Exposed Amount of bleeding with debridement: Mild Bleeding Controlled with: Pressure and Compression and gauze Patient tolerated procedure: Patient tolerated procedure well Post-Debridement Measurements and Additional Note: Post-Debridement Measurements/Treatment - Nurse 1 - General Ulcer Assessment Start: 01/25/23 10:10 Freq: Status: Active Protocol: ALEX Activity Type Activity Date Activity User E-sign Co-sign Detail Recorded Client Recorded Date Recorded By Document 01/25/23 10:11 [id number] 01/25/23 10:37 MW 01/25/23 10:11 WC - Today's Visit Information Type of service Initial Visit Arrival Mode Ambulatory Transfer Assistance None Accompanied by CAREGIVER Patient Identification Verified (Name & Yes ) Patient Requires Transmission-Based No Precautions Safety Precautions Fall Prevention Vital Signs Temperature (97.8 F-99.1 F) 98.1 F Temperature Source Temporal Pulse Rate (60-100) 71 Pulse Location Monitor Respiratory Rate (12-18) 18 Respiratory rate source Observation Oxygen Delivery Method Room Air Blood Pressure (90/60-120/80) 157/57 H Blood Pressure Mean 90 Source Monitor Position Sitting Blood Pressure Location Left Arm History Since Last Visit- (Skip if this is Patient's initial visit) Left Footwear Surgical Shoe with pressure relief insole Right Footwear Regular Shoe Pain Scale: 0-10 Numeric Is Patient Pain Free? Yes - Nurse 1 - General Ulcer Measurement Start: 01/25/23 10:10 Freq: Status: Active Protocol: Activity Type Activity Date Activity User E-sign Co-sign Detail Recorded Client Recorded Date Recorded By Document 01/25/23 10:11 MW [id number] 01/25/23 10:37 MW 01/25/23 10:11 Wound Center Nurse 1 #11 RIGHT HAND -Combined with other wound No -Current Size (cm) - Length 0.1 -Current Size (cm) - Width 0.1 -Current Size (cm) - Depth 0.1 -Total Square Cm 0.01 -Date of Last Picture (Recall this 01/25/23 field) -Photo Taken Yes -Epithelialization None Present -Tunneling No -Undermining/Tunneling No -Circular Undermining No -Exudate Amt None Present -Wound Margin Flat & Intact -Granulation Amt Large (67-100%) -Granulation Quality [place] -Slough/Fibrin Yes -Necrosis Amt Small (1-33%) -Necrotic Tissue Type Adherent Slough -Structure Exposed N/A -Texture (Vangie-wound Skin Appearance) Assessed, Localized Edema -Moisture (Vangie-wound Skin Appearance) No Abnormality, Assessed -Color (Vangie-wound Skin Appearance) No Abnormality, Assessed #14 RIGHT MEDIAL ANKLE -Combined with other wound No -Current Size (cm) - Length 2.0 -Current Size (cm) - Width 0.5 -Current Size (cm) - Depth 0.1 -Total Square Cm 1.00 -Date of Last Picture (Recall this 01/25/23 field) -Photo Taken Yes -Epithelialization None Present -Tunneling No -Undermining/Tunneling No -Circular Undermining No -Exudate Amt Medium -Exudate Type Serosanguineous -Wound Margin Flat & Intact -Granulation Amt Large (67-100%) -Granulation Quality [place] -Slough/Fibrin Yes -Necrosis Amt Small (1-33%) -Necrotic Tissue Type Adherent Slough -Structure Exposed N/A -Texture (Vangie-wound Skin Appearance) Assessed, Scarring -Moisture (Vangie-wound Skin Appearance) Assessed,Dry/ Scaly -Color (Vangie-wound Skin Appearance) Assessed, Hemosiderin Staining -Temperature (Vangie-wound Skin No Abnormality Appearance) (Pt Warm) -Tenderness on Palpation (Vangie-wound No Skin Appearance) -Ulcer Cleansing Soap and Water -Foul Odor after Cleansing No -Anesthetic Used 5% Lidocaine Gel #13 LEFT LAT[address]AL [address]EE -Combined with other wound No -Current Size (cm) - Length 0.5 -Current Size (cm) - Width 0.4 -Current Size (cm) - Depth 0.1 -Total Square Cm 0.20 -Date of Last Picture (Recall this 01/25/23 field) -Photo Taken Yes -Epithelialization None Present -Tunneling No -Undermining/Tunneling No -Circular Undermining No -Exudate Amt Small -Exudate Type Serosanguineous -Wound Margin Distinct, Outline Attached -Granulation Amt Small (1-33%) -Granulation Quality [place] -Slough/Fibrin Yes -Necrosis Amt Medium (34-66%) -Necrotic Tissue Type Adherent Slough -Structure Exposed N/A -Texture (Vangie-wound Skin Appearance) Assessed, Scarring -Moisture (Vangie-wound Skin Appearance) Assessed,Dry/ Scaly -Color (Vangie-wound Skin Appearance) Assessed, Hemosiderin Staining -Temperature (Vangie-wound Skin No Abnormality Appearance) (Pt Warm) -Tenderness on Palpation (Vangie-wound No Skin Appearance) -Ulcer Cleansing Soap and Water -Foul Odor after Cleansing No -Anesthetic Used 5% Lidocaine Gel #12 LEFT MEDIAL KNEE -Combined with other wound No -Current Size (cm) - Length 0.9 -Current Size (cm) - Width 0.9 -Current Size (cm) - Depth 0.1 -Total Square Cm 0.81 -Date of Last Picture (Recall this 01/25/23 field) -Photo Taken Yes -Epithelialization None Present -Tunneling No -Undermining/Tunneling No -Circular Undermining No -Exudate Amt Medium -Exudate Type Serosanguineous -Wound Margin Distinct, Outline Attached -Granulation Amt None Present (0 %) -Granulation Quality N/A -Slough/Fibrin Yes -Necrosis Amt Large (67-100%) -Necrotic Tissue Type Adherent Slough -Structure Exposed N/A -Texture (Vangie-wound Skin Appearance) Not Assessed, Scarring -Moisture (Vangie-wound Skin Appearance) Assessed,Dry/ Scaly -Color (Vangie-wound Skin Appearance) Assessed, Hemosiderin Staining -Temperature (Vangie-wound Skin No Abnormality Appearance) (Pt Warm) -Tenderness on Palpation (Vangie-wound Yes Skin Appearance) -Ulcer Cleansing Soap and Water -Foul Odor after Cleansing No -Anesthetic Used 5% Lidocaine Gel Lower Limb Edema Present Yes Right Calf (cm) 30.0 Point of Measurement (cm from the medial 21.0 instep) Left Calf (cm) 36.2 Left Foot (cm) 22.5 WC - Nurse 2 - General Ulcer CM Notes Start: 01/25/23 10:10 Freq: Status: Active Protocol: Activity Type Activity Date Activity User E-sign Co-sign Detail Recorded Client Recorded Date Recorded By Document 01/25/23 10:51 JAVIER [id number] 01/25/23 10:58 JAVIER 01/25/23 10:51 Wound Center Nurse 2 #14 RIGHT MEDIAL ANKLE -Time 10:51 -Correct Patient Yes -Correct Side, Site, Position Yes -Correct Procedure Yes -Procedure Performed Yes -Type of Procedure Debridement -Clinical Debridement Subcutaneous -Tissue Removed Subcutaneous -Post Debridement (cm) - Length 2.0 -Post Debridement (cm) - Width 1.4 -Post Debridement (cm) - Depth 0.1 -Total Square (Post) (cm) 2.80 -Area of Debridement (cm) - Length 2.0 -Area of Debridement (cm) - Width 1.4 -Total Square (Area) (cm) 2.80 -Tunneling No -Undermining/Tunneling No -Circular Undermining No -Wound/Ulcer Outcome Not Healed -Ulcer Cleansing Rinsed/ Irrigated with Saline -Foul Odor after Cleansing No -Bioengineered Tissue No -Bleeding Controlled with Pressure -Treatment Response Procedure Tolerated Well -Offloading No -Debridement - Subq, 1st 20sq cm Yes #13 LEFT LATERAL LNEE -Time 10:52 -Correct Patient Yes -Correct Side, Site, Position Yes -Correct Procedure Yes -Procedure Performed Yes -Type of Procedure Debridement -Clinical Debridement Subcutaneous -Tissue Removed Subcutaneous -Post Debridement (cm) - Length 1.8 -Post Debridement (cm) - Width 1.3 -Post Debridement (cm) - Depth 0.1 -Total Square (Post) (cm) 2.34 -Area of Debridement (cm) - Length 1.8 -Area of Debridement (cm) - Width 1.3 -Total Square (Area) (cm) 2.34 -Tunneling No -Undermining/Tunneling No -Circular Undermining No -Wound/Ulcer Outcome Not Healed -Ulcer Cleansing Rinsed/ Irrigated with Saline -Foul Odor after Cleansing No -Bioengineered Tissue No -Bleeding Controlled with Pressure -Treatment Response Procedure Tolerated Well -Offloading No -Debridement - Subq, 1st 20sq cm No #12 LEFT MEDIAL KNEE -Correct Patient No -Correct Side, Site, Position No -Correct Procedure No -Procedure Performed No -Post Debridement (cm) - Length 0.7 -Post Debridement (cm) - Width 1.0 -Post Debridement (cm) - Depth 0.1 -Total Square (Post) (cm) 0.70 -Area of Debridement (cm) - Length 0.7 -Area of Debridement (cm) - Width 1.0 -Total Square (Area) (cm) 0.70 -Wound/Ulcer Outcome Not Healed -Debridement - Subq, 1st 20sq cm No Pain Scale: 0-10 Numeric Is Patient Pain Free? Yes - Nurse 3 - General Ulcer D/C NN Start: 01/25/23 10:10 Freq: Status: Active Protocol: Activity Type Activity Date Activity User E-sign Co-sign Detail Recorded Client Recorded Date Recorded By Document 01/25/23 11:24 MW [id number] 01/25/23 11:26 MW 01/25/23 11:24 Wound Care Center Nurse 3 #14 RIGHT MEDIAL ANKLE -Ulcer Cleansing Rinsed/ Irrigated with Saline -Foul Odor after Cleansing No -Negative Pressure Wound Therapy N/A -Primary Dressing Applied C Hydrogel ($), NonAdherent Contact Layer -Primary Dressing Covered/Secured with Dry Gauze, Secured with Tape #13 LEFT LATERAL LNEE -Ulcer Cleansing Rinsed/ Irrigated with Saline -Foul Odor after Cleansing No -Negative Pressure Wound Therapy N/A -Primary Dressing Applied Silvercel -Primary Dressing Covered/Secured with Dry Gauze, Secured with Tape -Silvercel 1 #12 LEFT MEDIAL KNEE -Ulcer Cleansing Rinsed/ Irrigated with Saline -Foul Odor after Cleansing No -Negative Pressure Wound Therapy N/A -Other Dressing SILVERCEL -Primary Dressing Covered/Secured with Dry Gauze, Secured with Tape Right -Lotion applied to leg before No compression wrap -Tubular Bandage Double Layer -Size of Tubigrip Used Size D -Size D ($) 2 Left -Lotion applied to leg before No compression wrap -Tubular Bandage Double Layer -Size of Tubigrip Used Size D -Size D ($) 2 Treatment Response Procedure Tolerated Well Pain Scale: 0-10 Numeric Is Patient Pain Free? Yes Teaching: Wound Center Dressing Your Wound -Person Taught Patient,Primary Caregiver -Teaching Method Discussion, Demonstration -Response to teaching Verbalize understanding WC - Visit Discharge Discharge Condition Stable Ambulatory Status Ambulatory, Walker Transportation Private Auto Accompanied by CAREGIVER Medication Reconcilliation completed & No provided to patient/care provider Clinical Summary of Care Provided Yes Additional Wound Wound debrided: Left lateral knee ulcer at edge of skin flap Laterality: Left Wound Grade/Stage: Stage II Type of Debridement: Excisional debridement Anesthesia Used: 5% Lidocaine Gel Depth: Down to and including healthy tissue and in the subcutaneous layer Percentage of wound debrided: 100 Instrument Used: 3mm curette Tissue Removed: Devitalized tissue and slough Severity: Fat Layer Exposed Amount of bleeding with debridement: Mild Bleeding Controlled with: Pressure and Compression and gauze Patient tolerated procedure: Patient tolerated procedure well Charges/Coding Procedures Integumentary [id number]: [id number] Lian subq tissue 20 sq cm/< (Right medial ankle ulcer- modifier 79) Assessment/Plan Assessment/Plan (1) Chronic ulcer of right ankle: CODE(S): L97.319 - Non-pressure chronic ulcer of right ankle with unspecified severity QUALIFIERS: Non-pressure ulcer stage: with fat layer exposed Qualified Code(s): L97.312 - Non-pressure chronic ulcer of right ankle with fat layer exposed (2) Skin ulcer of left knee with fat layer exposed: CODE(S): L97.822 - Non-pressure chronic ulcer of other part of left lower leg with fat layer exposed (3) Neoplasm of skin of lower leg: CODE(S): D49.2 - Neoplasm of unspecified behavior of bone, soft tissue, and skin (4) Actinic keratoses: CODE(S): L57.0 - Actinic keratosis (5) 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 (6) Other complications of skin graft (allograft) (autograft): CODE(S): T86.828 - Other complications of skin graft (allograft) (autograft) (7) Squamous cell carcinoma of left lower leg: CODE(S): C44.729 - Squamous cell carcinoma of skin of left lower limb, including hip (8) Neoplasm of skin of lower leg: CODE(S): D49.2 - Neoplasm of unspecified behavior of bone, soft tissue, and skin (9) Squamous cell carcinoma of left lower leg: CODE(S): C44.729 - Squamous cell carcinoma of skin of left lower limb, including hip (10) Rheumatoid arthritis: CODE(S): M06.9 - Rheumatoid arthritis, unspecified (11) Former smoker: CODE(S): Z87.891 - Personal history of nicotine dependence PLAN: Plan Patient evaluated at the wound healing center. Wound care to her right medial ankle and left lateral knee will be collagen hydrogel covered with adaptic and gauze daily. To the left medial knee lesion, she will stop using antibiotic ointment on it, because it is too moist and she will start placing moistened silver alginate covered with gauze daily. The left medial knee lesion was not debrided. She is to continue to place Aldara to the scattered actinic areas on her right dorsal hand and right wrist 5 nights per week for 6 weeks, wiping off the Aldara in the morning. Compression will be a double tubigrip bilaterally. She is encouraged to keep her legs elevated while sitting to help control her edema. Will continue to monitory the left medial knee lesion closely. I have discussed this with Dr. Bergman since it is similar to her previous squamous cell lesions. Follow up 2 weeks. Call or come in sooner if develop issues.
[2023-02-08 14:31] VITALS: BP 158/48; PULSE 72; RESP 16; TEMP 36.4
--- NOTE | 2023-02-08 15:45 | PCM.WC.PN ---
History of Present Illness Date of Service: 02/08/23 Chief Complaint: Right medial ankle ulcer and left lateral knee wound History of Wound: 87 year old female is known to me. She has had a couple recent surgeries for excision of squamous cell carcinoma. The right medial ankle skin graft has had some compromise and the left lateral knee skin flap has one edge of compromise. Her care was transferred to the wound center from our office. Surgery on 12/09/22 for excision 1.5 cm cutaneous horn with actinic damage left lateral knee with rhomboid transposition skin flap reconstruction (14.58 cm2) and excision 0.7 cm cutaneous horn with actinic damage and atypia with possible squamous cell carcinoma in situ component dorsum right hand at MP joint index finger with FTSG reconstruction from right volar forearm (7.29 cm2). Surgery on 07/24/22 for excision 6.5 cm nonhealing ulcerated invasive well-differentiated squamous cell carcinoma left anteromedial leg with STSG reconstruction from the lower anterior abdominal wall (63 cm2) and excision 2 cm squamous cell carcinoma right medial leg with STSG reconstruction from the lower anterior abdominal wall (16 cm2) and excision 2.5 cm squamous cell carcinoma right medial ankle with STSG reconstruction from the lower anterior abdominal wall (24.75 cm2). Pathology from 12/09/22 of the left lateral knee biopsy showed superficially invasive well differentiated squamous cell carcinoma, actinic keratosis and mild to moderate atypia, and solar elastosis. Margins negative for carcinoma. the dorsum right hand lesion at MP joint index finger showed superficially invasive well differentiated squamous cell carcinoma, keratoacanthomatous type. Actinic keratosis with mild to moderate atypia and solar elastosis. The margins were negative for carcinoma. Pathology from 07/24/22 showed the right medial leg lesion was an invasive well-differentiated squamous cell carcinoma, with clear margins. The right medial ankle lesion was an invasive well-differentiated squamous cell carcinoma, with clear margins. The left anteromedial leg lesion was an invasive well-differentiated squamous cell carcinoma with associated ulceration. The depth of invasion was 4.5 mm. The anatomic level was V (carcinoma invades subcutaneous tissue). No lymphovascular invasion. No perineural invasion. A wound culture was obtained from the right medial leg skin graft on 08/20/22 which was positive for Proteus mirabilis, MRSA, and Enterococcus faecalis. She was started on Levaquin and Linezolid, but those were held because of her diarrhea. After the diarrhea resolved, she restarted the Linezolid, but she did not tolerating it due to the diarrhea and nausea she was experiencing so it was stopped. She was able to complete the Levaquin. Wound culture obtained on 11/19/22 of a red, inflamed blister on her left lateral foot which was positive for Staphylococcus aureus and she was treated with Doxycycline. Her PET scan has been done. She met with Oncologist and her will follow up with him is in 6 months. She met with Radiation Oncologist to discuss radiation therapy and they are recommending radiation therapy. She would start the radiation therapy after her skin graft areas are healed. Her PET scan is normal, so she would have benefited from local control with Radiation Therapy. I spoke with Dr. Rodriguez's office in mid November and he stated she is out of the window for radiation for her left leg. This was explained to the patient. Ultrasound of left leg was ordered on 12/24/22 and was negative for DVT. Her swelling is slowly resolving. Wound care - Collagen hydrogel covered with adaptic and topped with gauze. Today she states she feels well and denies fever, chills, nausea and vomiting. Progress of Wound: Right medial ankle ulcer is smaller than previous office visit. Left lateral knee is also smaller. She has a lesion on her left medial knee that started as scabby and very painful but has now ulcerated. Spoke with Dr. Bergman and he will schedule her to have it excised. On her right dorsal hand she has a healed skin graft and she is placing Aldara to several actinic areas. She does have a small scabby area on the edge of her skin graft. Will continue to monitor this. Objective Data Objective Data Vital Signs: Vital Signs Temp Pulse Resp BP O2 Del Method 97.6 F L 72 16 158/48 H Room Air 02/08/23 14:31 02/08/23 14:31 02/08/23 14:31 02/08/23 14:31 02/08/23 14:31 Oxygen Delivery Method Room Air Charges/Coding Procedures Integumentary 111xxx-113xx: 45720 Lian subq tissue 20 sq cm/< (Right medial ankle ulcer- modifier 79) Debridement Note Debridement Note Wound debrided: medial ankle ulcer Laterality: Right Wound Grade/Stage: Stage II Type of Debridement: Excisional debridement Anesthesia Used: 5% Lidocaine Gel Depth: Down to and including healthy tissue and in the subcutaneous layer Percentage of wound debrided: 100 Instrument Used: 3mm curette Tissue Removed: Devitalized tissue and slough Severity: Fat Layer Exposed Amount of bleeding with debridement: Mild Bleeding Controlled with: Pressure and Compression and gauze Patient tolerated procedure: Patient tolerated procedure well Post-Debridement Measurements and Additional Note: Post-Debridement Measurements/Treatment - Nurse 1 - General Ulcer Assessment Start: 01/25/23 10:10 Freq: Status: Active Protocol: ALEX Activity Type Activity Date Activity User E-sign Co-sign Detail Recorded Client Recorded Date Recorded By Document 01/25/23 10:11 MW [id number] 01/25/23 10:37 MW Document 02/08/23 14:31 [facility] [id number] 02/08/23 14:44 BMF 01/25/23 02/08/23 10:11 14:31 - Today's Visit Information Type of service Initial Visit Follow-up Visit (Physician/SUGAR BOILER ) Arrival Mode Ambulatory Ambulatory, Walker Transfer Assistance None Accompanied by CAREGIVER caregiver Patient Identification Verified (Name & Yes Yes ) Patient Requires Transmission-Based No No Precautions Safety Precautions Fall Prevention Vital Signs Temperature (97.8 F-99.1 F) 98.1 F 97.6 F L Temperature Source Temporal Temporal Pulse Rate (60-100) 71 72 Pulse Location Monitor Monitor Respiratory Rate (12-18) 18 16 Respiratory rate source Observation Observation Oxygen Delivery Method Room Air Room Air Blood Pressure (90/60-120/80) 157/57 H 158/48 H Blood Pressure Mean (mm Hg) 90 84 Source Monitor Monitor Position Sitting Sitting Blood Pressure Location Left Arm Left Arm History Since Last Visit- (Skip if this is Patient's initial visit) Have you changed medications since your No last visit? Any new allergies or adverse reactions No Had a fall/change in ADL's that may No increase risk of falls Signs or symptoms of abuse and/or No neglect since last visit Have you been in the hospital since your No last visit? Has dressing in place as prescribed Yes Has offloadiing in place as prescribed N/A Experienced any changes in pain level or No management Left Footwear Surgical Shoe Regular Shoe with pressure relief insole Right Footwear Regular Shoe Regular Shoe Pain Scale: 0-10 Numeric Is Patient Pain Free? Yes Yes WC - Nurse 1 - General Ulcer Measurement Start: 01/25/23 10:10 Freq: Status: Active Protocol: Activity Type Activity Date Activity User E-sign Co-sign Detail Recorded Client Recorded Date Recorded By Document 01/25/23 10:11 MW [id number] 01/25/23 10:37 MW Document 02/08/23 14:31 BM [id number] 02/08/23 14:44 BMF 01/25/23 02/08/23 10:11 14:31 Wound Center Nurse 1 #11 RIGHT HAND -Combined with other wound No -Current Size (cm) - Length 0.1 -Current Size (cm) - Width 0.1 -Current Size (cm) - Depth 0.1 -Total Square Cm 0.01 -Date of Last Picture (Recall this 01/25/23 field) -Photo Taken Yes -Epithelialization None Present -Tunneling No -Undermining/Tunneling No -Circular Undermining No -Exudate Amt None Present -Wound Margin Flat & Intact -Granulation Amt Large (67-100%) -Granulation Quality [place] -Slough/Fibrin Yes -Necrosis Amt Small (1-33%) -Necrotic Tissue Type Adherent Slough -Structure Exposed N/A -Texture (Vangie-wound Skin Appearance) Assessed, Localized Edema -Moisture (Vangie-wound Skin Appearance) No Abnormality, Assessed -Color (Vangie-wound Skin Appearance) No Abnormality, Assessed #14 RIGHT MEDIAL ANKLE -Combined with other wound No No -Current Size (cm) - Length 2.0 3.2 -Current Size (cm) - Width 0.5 1.2 -Current Size (cm) - Depth 0.1 0.1 -Total Square Cm 1.00 3.84 -Date of Last Picture (Recall this 01/25/23 02/08/23 field) -Photo Taken Yes Yes -Epithelialization None Present None Present -Tunneling No No -Undermining/Tunneling No No -Circular Undermining No No -Exudate Amt Medium Medium -Exudate Type Serosanguineous Serosanguineous -Wound Margin Flat & Intact Flat & Intact -Granulation Amt Large (67-100%) Small (1-33%) -Granulation Quality [place] Red -Slough/Fibrin Yes Yes -Necrosis Amt Small (1-33%) Large (67-100%) -Necrotic Tissue Type Adherent Slough Adherent Slough -Structure Exposed N/A -Texture (Vangie-wound Skin Appearance) Assessed, Assessed, Scarring Scarring -Moisture (Vangie-wound Skin Appearance) Assessed,Dry/ Assessed, Scaly Maceration -Color (Vangie-wound Skin Appearance) Assessed, Assessed, Hemosiderin Erythema Staining -Temperature (Vangie-wound Skin No Abnormality No Abnormality Appearance) (Pt Warm) (Pt Warm) -Tenderness on Palpation (Vangie-wound No Yes Skin Appearance) -Ulcer Cleansing Soap and Water Soap and Water -Foul Odor after Cleansing No No -Anesthetic Used 5% Lidocaine 5% Lidocaine Gel Gel #13 LEFT LATERAL [address]EE -Combined with other wound No No -Current Size (cm) - Length 0.5 1.8 -Current Size (cm) - Width 0.4 1.2 -Current Size (cm) - Depth 0.1 0.1 -Total Square Cm 0.20 2.16 -Date of Last Picture (Recall this 01/25/23 02/08/23 field) -Photo Taken Yes Yes -Epithelialization None Present None Present -Tunneling No No -Undermining/Tunneling No No -Circular Undermining No No -Exudate Amt Small Medium -Exudate Type Serosanguineous Serosanguineous -Wound Margin Distinct, Distinct, Outline Outline Attached Attached -Granulation Amt Small (1-33%) Small (1-33%) -Granulation Quality [place] -Slough/Fibrin Yes Yes -Necrosis Amt Medium (34-66%) Large (67-100%) -Necrotic Tissue Type Adherent Slough Adherent Slough -Structure Exposed N/A -Texture (Vangie-wound Skin Appearance) Assessed, Assessed, Scarring Scarring -Moisture (Vangie-wound Skin Appearance) Assessed,Dry/ Assessed Scaly -Color (Vangie-wound Skin Appearance) Assessed, Assessed, Hemosiderin Erythema Staining -Temperature (Vangie-wound Skin No Abnormality No Abnormality Appearance) (Pt Warm) (Pt Warm) -Tenderness on Palpation (Vangie-wound No Yes Skin Appearance) -Ulcer Cleansing Soap and Water Soap and Water -Foul Odor after Cleansing No No -Anesthetic Used 5% Lidocaine 5% Lidocaine Gel Gel #12 LEFT MEDIAL KNEE -Combined with other wound No No -Current Size (cm) - Length 0.9 1.8 -Current Size (cm) - Width 0.9 1.5 -Current Size (cm) - Depth 0.1 0.2 -Total Square Cm 0.81 2.70 -Date of Last Picture (Recall this 01/25/23 02/08/23 field) -Photo Taken Yes Yes -Epithelialization None Present None Present -Tunneling No No -Undermining/Tunneling No No -Circular Undermining No No -Exudate Amt Medium Medium -Exudate Type Serosanguineous Serosanguineous -Wound Margin Distinct, Distinct, Outline Outline Attached Attached -Granulation Amt None Present (0 Large (67-100%) %) -Granulation Quality N/A Red -Slough/Fibrin Yes Yes -Necrosis Amt Large (67-100%) Small (1-33%) -Necrotic Tissue Type Adherent Slough Adherent Slough -Structure Exposed N/A -Texture (Vangie-wound Skin Appearance) Not Assessed, Assessed Scarring -Moisture (Vangie-wound Skin Appearance) Assessed,Dry/ Assessed Scaly -Color (Vangie-wound Skin Appearance) Assessed, Assessed Hemosiderin Staining -Temperature (Vangie-wound Skin No Abnormality No Abnormality Appearance) (Pt Warm) (Pt Warm) -Tenderness on Palpation (Vangie-wound Yes No Skin Appearance) -Ulcer Cleansing Soap and Water Soap and Water -Foul Odor after Cleansing No No -Anesthetic Used 5% Lidocaine 5% Lidocaine Gel Gel Lower Limb Edema Present Yes Yes Right Calf (cm) 30.0 33.1 Right Ankle (cm) 23.2 Point of Measurement (cm from the medial 21.0 instep) Left Calf (cm) 36.2 35.1 Left Ankle (cm) 25.5 Left Foot (cm) 22.5 WC - Nurse 2 - General Ulcer CM Notes Start: 01/25/23 10:10 Freq: Status: Active Protocol: Activity Type Activity Date Activity User E-sign Co-sign Detail Recorded Client Recorded Date Recorded By Document 01/25/23 10:51 JAVIER [id number] 01/25/23 10:58 JAVIER Document 02/08/23 14:58 JAVIER [id number] 02/08/23 15:07 JAVIER 01/25/23 02/08/23 10:51 14:58 Wound Center Nurse 2 #14 RIGHT MEDIAL ANKLE -Time 10:51 14:58 -Correct Patient Yes Yes -Correct Side, Site, Position Yes Yes -Correct Procedure Yes Yes -Procedure Performed Yes Yes -Type of Procedure Debridement Debridement -Clinical Debridement Subcutaneous Subcutaneous -Tissue Removed Subcutaneous Subcutaneous -Post Debridement (cm) - Length 2.0 1.5 -Post Debridement (cm) - Width 1.4 0.6 -Post Debridement (cm) - Depth 0.1 0.1 -Total Square (Post) (cm) 2.80 0.90 -Area of Debridement (cm) - Length 2.0 1.5 -Area of Debridement (cm) - Width 1.4 0.6 -Total Square (Area) (cm) 2.80 0.90 -Tunneling No No -Undermining/Tunneling No No -Circular Undermining No No -Wound/Ulcer Outcome Not Healed Not Healed -Ulcer Cleansing Rinsed/ Rinsed/ Irrigated with Irrigated with Saline Saline -Foul Odor after Cleansing No No -Bioengineered Tissue No No -Bleeding Controlled with Pressure Pressure -Treatment Response Procedure Procedure Tolerated Well Tolerated Well -Offloading No No -Debridement - Subq, 1st 20sq cm Yes Yes #13 LEFT LATERAL LNEE -Time 10:52 15:05 -Correct Patient Yes Yes -Correct Side, Site, Position Yes Yes -Correct Procedure Yes Yes -Procedure Performed Yes Yes -Type of Procedure Debridement Debridement -Clinical Debridement Subcutaneous Subcutaneous -Tissue Removed Subcutaneous Subcutaneous -Post Debridement (cm) - Length 1.8 0.8 -Post Debridement (cm) - Width 1.3 0.8 -Post Debridement (cm) - Depth 0.1 0.1 -Total Square (Post) (cm) 2.34 0.64 -Area of Debridement (cm) - Length 1.8 0.8 -Area of Debridement (cm) - Width 1.3 0.8 -Total Square (Area) (cm) 2.34 0.64 -Tunneling No No -Undermining/Tunneling No No -Circular Undermining No No -Wound/Ulcer Outcome Not Healed Not Healed -Ulcer Cleansing Rinsed/ Rinsed/ Irrigated with Irrigated with Saline Saline -Foul Odor after Cleansing No No -Bioengineered Tissue No No -Bleeding Controlled with Pressure Pressure -Treatment Response Procedure Procedure Tolerated Well Tolerated Well -Offloading No No -Debridement - Subq, 1st 20sq cm No No #12 LEFT MEDIAL KNEE -Time 15:06 -Correct Patient No No -Correct Side, Site, Position No No -Correct Procedure No No -Procedure Performed No No -Post Debridement (cm) - Length 0.7 -Post Debridement (cm) - Width 1.0 -Post Debridement (cm) - Depth 0.1 -Total Square (Post) (cm) 0.70 -Area of Debridement (cm) - Length 0.7 -Area of Debridement (cm) - Width 1.0 -Total Square (Area) (cm) 0.70 -Wound/Ulcer Outcome Not Healed Not Healed -Debridement - Subq, 1st 20sq cm No Pain Scale: 0-10 Numeric Is Patient Pain Free? Yes Yes WC - Nurse 3 - General Ulcer D/C NN Start: 01/25/23 10:10 Freq: Status: Active Protocol: Activity Type Activity Date Activity User E-sign Co-sign Detail Recorded Client Recorded Date Recorded By Document 01/25/23 11:24 MW [id number] 01/25/23 11:26 MW Document 02/08/23 15:20 [facility] [id number] 02/08/23 15:22 BMF 01/25/23 02/08/23 11:24 15:20 Wound Care Center Nurse 3 #14 RIGHT MEDIAL ANKLE -Ulcer Cleansing Rinsed/ Rinsed/ Irrigated with Irrigated with Saline Saline -Foul Odor after Cleansing No No -Negative Pressure Wound Therapy N/A -Primary Dressing Applied C Hydrogel ($), NonAdherent NonAdherent Contact Layer Contact Layer -Other Dressing hydrogel; per kw cat sitter -Primary Dressing Covered/Secured with Dry Gauze, Dry Gauze, Secured with Secured with Tape Tape #13 LEFT LATERAL LNEE -Ulcer Cleansing Rinsed/ Rinsed/ Irrigated with Irrigated with Saline Saline -Foul Odor after Cleansing No No -Negative Pressure Wound Therapy N/A -Primary Dressing Applied [place] NonAdherent Contact Layer -Other Dressing hydrogel; per kw cat sitter -Primary Dressing Covered/Secured with Dry Gauze, Dry Gauze, Secured with Secured with Tape Tape -[place] 1 #12 LEFT MEDIAL KNEE -Ulcer Cleansing Rinsed/ Rinsed/ Irrigated with Irrigated with Saline Saline -Foul Odor after Cleansing No No -Negative Pressure Wound Therapy N/A -Primary Dressing Applied NonAdherent Contact Layer -Other Dressing SILVERCEL per kw cat sitter -Primary Dressing Covered/Secured with Dry Gauze, Dry Gauze, Secured with Secured with Tape Tape ble -Tubular Bandage Double Layer -Size of Tubigrip Used Size D -Size D ($) 2 Right -Lotion applied to leg before No compression wrap -Tubular Bandage Double Layer -Size of Tubigrip Used Size D -Size D ($) 2 Left -Lotion applied to leg before No compression wrap -Tubular Bandage Double Layer -Size of Tubigrip Used Size D -Size D ($) 2 Treatment Response Procedure Procedure Tolerated Well Tolerated Well Pain Scale: 0-10 Numeric Is Patient Pain Free? Yes Yes Teaching: Wound Center Dressing Your Wound -Person Taught Patient,Primary Caregiver -Teaching Method Discussion, Demonstration -Response to teaching Verbalize understanding WC - Visit Discharge Discharge Condition Stable Stable Ambulatory Status Ambulatory, Ambulatory, Walker Walker Transportation Private Auto Private Auto Accompanied by CAREGIVER caregiver Medication Reconcilliation completed & No provided to patient/care provider Clinical Summary of Care Provided Yes Additional Wound Wound debrided: Left lateral knee ulcer at edge of skin flap Laterality: Left Wound Grade/Stage: Stage II Type of Debridement: Excisional debridement Anesthesia Used: 5% Lidocaine Gel Depth: Down to and including healthy tissue and in the subcutaneous layer Percentage of wound debrided: 100 Instrument Used: 3mm curette Tissue Removed: Devitalized tissue and slough Severity: Fat Layer Exposed Amount of bleeding with debridement: Mild Bleeding Controlled with: Pressure and Compression and gauze Patient tolerated procedure: Patient tolerated procedure well Assessment/Plan Assessment/Plan (1) Chronic ulcer of right ankle: CODE(S): L97.319 - Non-pressure chronic ulcer of right ankle with unspecified severity QUALIFIERS: Non-pressure ulcer stage: with fat layer exposed Qualified Code(s): L97.312 - Non-pressure chronic ulcer of right ankle with fat layer exposed (2) Skin ulcer of left knee with fat layer exposed: CODE(S): L97.822 - Non-pressure chronic ulcer of other part of left lower leg with fat layer exposed (3) Neoplasm of skin of lower leg: CODE(S): D49.2 - Neoplasm of unspecified behavior of bone, soft tissue, and skin (4) Actinic keratoses: CODE(S): L57.0 - Actinic keratosis (5) 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 (6) Other complications of skin graft (allograft) (autograft): CODE(S): T86.828 - Other complications of skin graft (allograft) (autograft) (7) Squamous cell carcinoma of left lower leg: CODE(S): C44.729 - Squamous cell carcinoma of skin of left lower limb, including hip (8) Neoplasm of skin of lower leg: CODE(S): D49.2 - Neoplasm of unspecified behavior of bone, soft tissue, and skin (9) Rheumatoid arthritis: CODE(S): M06.9 - Rheumatoid arthritis, unspecified (10) Former smoker: CODE(S): Z87.891 - Personal history of nicotine dependence PLAN: Plan Patient evaluated at the wound healing center. Wound care to her right medial ankle and left lateral knee will be collagen hydrogel covered with adaptic and gauze daily. To the left medial knee lesion place moistened silver alginate covered with gauze daily. The left medial knee lesion was not debrided. She is to continue to place Aldara to the scattered actinic areas on her right dorsal hand and right wrist 5 nights per week for 6 weeks, wiping off the Aldara in the morning. Compression will be a double tubigrip bilaterally. She is encouraged to keep her legs elevated while sitting to help control her edema. I have discussed the left medial knee lesion that has now ulcerated with Dr. Bergman about my concerns that it is too similar to her previous squamous cell lesions. He agrees that it needs to be excised. I have spoken with the patient about having this excised as soon as it can be scheduled. Follow up 2 weeks. Call or come in sooner if develop issues.
--- NOTE | 2023-02-22 13:17 | PCM.WC.PN ---
History of Present Illness Date of Service: 02/22/23 Chief Complaint: Right medial ankle ulcer and left lateral knee wound History of Wound: 87 year old female is known to me. She has had a couple recent surgeries for excision of squamous cell carcinoma. The right medial ankle skin graft has had some compromise and the left lateral knee skin flap has one edge of compromise. Her care was transferred to the wound center from our office. 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 Reconstruction with rhomboid transposition skin flap (40.5 cm2). Surgery on 12/09/22 for excision 1.5 cm cutaneous horn with actinic damage left lateral knee with rhomboid transposition skin flap reconstruction (14.58 cm2) and excision 0.7 cm cutaneous horn with actinic damage and atypia with possible squamous cell carcinoma in situ component dorsum right hand at MP joint index finger with FTSG reconstruction from right volar forearm (7.29 cm2). Surgery on 07/24/22 for excision 6.5 cm nonhealing ulcerated invasive well-differentiated squamous cell carcinoma left anteromedial leg with STSG reconstruction from the lower anterior abdominal wall (63 cm2) and excision 2 cm squamous cell carcinoma right medial leg with STSG reconstruction from the lower anterior abdominal wall (16 cm2) and excision 2.5 cm squamous cell carcinoma right medial ankle with STSG reconstruction from the lower anterior abdominal wall (24.75 cm2). Pathology from 09/18/22 left medial knee showed squamous cell carcinoma, completely excised, solar keratosis and solar elastosis. Perineural or lymph-vascular invasion is not identified. Pathology from 12/09/22 of the left lateral knee biopsy showed superficially invasive well differentiated squamous cell carcinoma, actinic keratosis and mild to moderate atypia, and solar elastosis. Margins negative for carcinoma. the dorsum right hand lesion at MP joint index finger showed superficially invasive well differentiated squamous cell carcinoma, keratoacanthomatous type. Actinic keratosis with mild to moderate atypia and solar elastosis. The margins were negative for carcinoma. Pathology from 07/24/22 showed the right medial leg lesion was an invasive well-differentiated squamous cell carcinoma, with clear margins. The right medial ankle lesion was an invasive well-differentiated squamous cell carcinoma, with clear margins. The left anteromedial leg lesion was an invasive well-differentiated squamous cell carcinoma with associated ulceration. The depth of invasion was 4.5 mm. The anatomic level was V (carcinoma invades subcutaneous tissue). No lymphovascular invasion. No perineural invasion. A wound culture was obtained from the right medial leg skin graft on 08/20/22 which was positive for Proteus mirabilis, MRSA, and Enterococcus faecalis. She was started on Levaquin and Linezolid, but those were held because of her diarrhea. After the diarrhea resolved, she restarted the Linezolid, but she did not tolerating it due to the diarrhea and nausea she was experiencing so it was stopped. She was able to complete the Levaquin. Wound culture obtained on 11/19/22 of a red, inflamed blister on her left lateral foot which was positive for Staphylococcus aureus and she was treated with Doxycycline. Her PET scan has been done. She met with Oncologist and her will follow up with him is in 6 months. She met with Radiation Oncologist to discuss radiation therapy and they are recommending radiation therapy. She would start the radiation therapy after her skin graft areas are healed. Her PET scan is normal, so she would have benefited from local control with Radiation Therapy. I spoke with Dr. Rodriguez's office in mid November and he stated she is out of the window for radiation for her left leg. This was explained to the patient. Ultrasound of left leg was ordered on 12/24/22 and was negative for DVT. Her swelling is slowly resolving. Today she states she feels well and denies fever, chills, nausea and vomiting. Progress of Wound: Right medial ankle ulcer is smaller. Left lateral knee is healed. Her right dorsal hand she has a healed skin graft. She has completed placing Aldara to several actinic areas and they are now smooth. She had a squamous cell lesion removed on 02/15/23 from her left knee and the operative dressing was removed. There is some wound separation in the center of the flap. She has increased bilateral lower extremity edema. Objective Data Objective Data Vital Signs: Vital Signs Temp Pulse Resp BP O2 Del Method 97.6 F L 72 16 158/48 H Room Air 02/08/23 14:31 02/08/23 14:31 02/08/23 14:31 02/08/23 14:31 02/08/23 14:31 Oxygen Delivery Method Room Air Charges/Coding Procedures Integumentary 111xxx-113xx: 21996 Lian subq tissue 20 sq cm/< (79 modifier) Debridement Note Debridement Note Wound debrided: medial ankle ulcer Laterality: Right Type of Debridement: Excisional debridement Anesthesia Used: 4% Lidocaine Solution and 5% Lidocaine Gel Depth: Down to and including healthy tissue and in the subcutaneous layer Percentage of wound debrided: 100 Instrument Used: 3mm curette Tissue Removed: Devitalized tissue and slough Severity: Limited To Skin Breakdown Amount of bleeding with debridement: Mild Bleeding Controlled with: Pressure and Compression and gauze Patient tolerated procedure: Patient tolerated procedure well Post-Debridement Measurements and Additional Note: Post-Debridement Measurements/Treatment - Nurse 1 - General Ulcer Assessment Start: 01/25/23 10:10 Freq: Status: Active Protocol: ALEX Activity Type Activity Date Activity User E-sign Co-sign Detail Recorded Client Recorded Date Recorded By Document 01/25/23 10:11 [id number] 01/25/23 10:37 Document 02/08/23 14:31 [facility] [id number] 02/08/23 14:44 [facility] Document 02/22/23 09:56 [facility] [id number] 02/22/23 10:07 [facility] 01/25/23 02/08/23 02/22/23 10:11 14:31 09:56 - Today's Visit Information Type of service Initial Visit Follow-up Visit (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 ) Arrival Mode Ambulatory Ambulatory, Walker Transfer Assistance None Accompanied by CAREGIVER caregiver Patient Identification Verified (Name & Yes Yes ) Patient Requires Transmission-Based No No Precautions Safety Precautions Fall Prevention Vital Signs Temperature (97.8 F-99.1 F) 98.1 F 97.6 F L Temperature Source Temporal Temporal Pulse Rate (60-100) 71 72 Pulse Location Monitor Monitor Respiratory Rate (12-18) 18 16 Respiratory rate source Observation Observation Oxygen Delivery Method Room Air Room Air Blood Pressure (90/60-120/80) 157/57 H 158/48 H Blood Pressure Mean (mm Hg) 90 84 Source Monitor Monitor Position Sitting Sitting Blood Pressure Location Left Arm Left Arm History Since Last Visit- (Skip if this is Patient's initial visit) Have you changed medications since your No last visit? Any new allergies or adverse reactions No Had a fall/change in ADL's that may No increase risk of falls Signs or symptoms of abuse and/or No neglect since last visit Have you been in the hospital since your No last visit? Has dressing in place as prescribed Yes Has offloadiing in place as prescribed N/A Experienced any changes in pain level or No management Left Footwear Surgical Shoe Regular Shoe with pressure relief insole Right Footwear Regular Shoe Regular Shoe Pain Scale: 0-10 Numeric Is Patient Pain Free? Yes Yes No L KNEE POST OP -Description Sharp,Aching -Intensity 10 -Duration (hours) Acute -Pain Behavior Guarding, Withdrawal from Touch,Facial Grimacing -Pain Aggravating Factors Sitting -Alleviating Factors/Interventions Distraction, Will continue to monitor, Patient denies need for intervention, Emotional Support WC - Nurse 1 - General Ulcer Measurement Start: 01/25/23 10:10 Freq: Status: Active Protocol: Activity Type Activity Date Activity User E-sign Co-sign Detail Recorded Client Recorded Date Recorded By Document 01/25/23 10:11 [id number] 01/25/23 10:37 Document 02/08/23 14:31 [facility] [id number] 02/08/23 14:44 [facility] Document 02/22/23 09:56 [facility] [id number] 02/22/23 10:07 [facility] 01/25/23 02/08/23 02/22/23 10:11 14:31 09:56 Wound Center Nurse 1 #[address] -Combined with other wound No No No -Current Size (cm) - Length 0.5 1.8 0.1 -Current Size (cm) - Width 0.4 1.2 0.1 -Current Size (cm) - Depth 0.1 0.1 0.1 -Total Square Cm 0.20 2.16 0.01 -Date of Last Picture (Recall this 01/25/23 02/08/23 field) -Photo Taken Yes Yes -Epithelialization None Present None Present -Tunneling No No -Undermining/Tunneling No No -Circular Undermining No No -Exudate Amt Small Medium -Exudate Type Serosanguineous Serosanguineous -Wound Margin Distinct, Distinct, Outline Outline Attached Attached -Granulation Amt Small (1-33%) Small (1-33%) -Granulation Quality Algood -Slough/Fibrin Yes Yes -Necrosis Amt Medium (34-66%) Large (67-100%) -Necrotic Tissue Type Adherent Slough Adherent Slough -Structure Exposed N/A -Texture (Vangie-wound Skin Appearance) Assessed, Assessed, Scarring Scarring -Moisture (Vangie-wound Skin Appearance) Assessed,Dry/ Assessed Scaly -Color (Vangie-wound Skin Appearance) Assessed, Assessed, Hemosiderin Erythema Staining -Temperature (Vangie-wound Skin No Abnormality No Abnormality Appearance) (Pt Warm) (Pt Warm) -Tenderness on Palpation (Vangie-wound No Yes Skin Appearance) -Ulcer Cleansing Soap and Water Soap and Water -Foul Odor after Cleansing No No -Anesthetic Used 5% Lidocaine 5% Lidocaine Gel Gel -Wound Comment(s) too painful to remove taped drsg post op. will soak w/ saline and KIT PLANNER WILL REMOVE W/ EVAL #11 RIGHT HAND -Combined with other wound No -Current Size (cm) - Length 0.1 -Current Size (cm) - Width 0.1 -Current Size (cm) - Depth 0.1 -Total Square Cm 0.01 -Date of Last Picture (Recall this 01/25/23 field) -Photo Taken Yes -Epithelialization None Present -Tunneling No -Undermining/Tunneling No -Circular Undermining No -Exudate Amt None Present -Wound Margin Flat & Intact -Granulation Amt Large (67-100%) -Granulation Quality Algood -Slough/Fibrin Yes -Necrosis Amt Small (1-33%) -Necrotic Tissue Type Adherent Slough -Structure Exposed N/A -Texture (Vangie-wound Skin Appearance) Assessed, Localized Edema -Moisture (Vangie-wound Skin Appearance) No Abnormality, Assessed -Color (Vangie-wound Skin Appearance) No Abnormality, Assessed #14 RIGHT MEDIAL ANKLE -Combined with other wound No No No -Current Size (cm) - Length 2.0 3.2 0.1 -Current Size (cm) - Width 0.5 1.2 0.1 -Current Size (cm) - Depth 0.1 0.1 0.1 -Total Square Cm 1.00 3.84 0.01 -Date of Last Picture (Recall this 01/25/23 02/08/23 02/22/23 field) -Photo Taken Yes Yes Yes -Epithelialization None Present None Present None Present -Tunneling No No No -Undermining/Tunneling No No No -Circular Undermining No No No -Exudate Amt Medium Medium Medium -Exudate Type Serosanguineous Serosanguineous Serosanguineous -Wound Margin Flat & Intact Flat & Intact Flat & Intact -Granulation Amt Large (67-100%) Small (1-33%) Medium (34-66%) -Granulation Quality Algood Red Red -Slough/Fibrin Yes Yes Yes -Necrosis Amt Small (1-33%) Large (67-100%) Medium (34-66%) -Necrotic Tissue Type Adherent Slough Adherent Slough Adherent Slough -Structure Exposed N/A -Texture (Vangie-wound Skin Appearance) Assessed, Assessed, Assessed, Scarring Scarring Scarring -Moisture (Vangie-wound Skin Appearance) Assessed,Dry/ Assessed, No Abnormality, Scaly Maceration Maceration -Color (Vangie-wound Skin Appearance) Assessed, Assessed, Assessed, Hemosiderin Erythema Erythema Staining -Temperature (Vangie-wound Skin No Abnormality No Abnormality No Abnormality Appearance) (Pt Warm) (Pt Warm) (Pt Warm) -Tenderness on Palpation (Vangie-wound No Yes Yes Skin Appearance) -Ulcer Cleansing Soap and Water Soap and Water Soap and Water -Foul Odor after Cleansing No No No -Anesthetic Used 5% Lidocaine 5% Lidocaine 5% Lidocaine Gel Gel Gel #12 LEFT MEDIAL KNEE -Combined with other wound No No No -Current Size (cm) - Length 0.9 1.8 0.1 -Current Size (cm) - Width 0.9 1.5 0.1 -Current Size (cm) - Depth 0.1 0.2 0.1 -Total Square Cm 0.81 2.70 0.01 -Date of Last Picture (Recall this 01/25/23 02/08/23 field) -Photo Taken Yes Yes -Epithelialization None Present None Present -Tunneling No No -Undermining/Tunneling No No -Circular Undermining No No -Exudate Amt Medium Medium -Exudate Type Serosanguineous Serosanguineous -Wound Margin Distinct, Distinct, Outline Outline Attached Attached -Granulation Amt None Present (0 Large (67-100%) %) -Granulation Quality N/A Red -Slough/Fibrin Yes Yes -Necrosis Amt Large (67-100%) Small (1-33%) -Necrotic Tissue Type Adherent Slough Adherent Slough -Structure Exposed N/A -Texture (Vangie-wound Skin Appearance) Not Assessed, Assessed Scarring -Moisture (Vangie-wound Skin Appearance) Assessed,Dry/ Assessed Scaly -Color (Vangie-wound Skin Appearance) Assessed, Assessed Hemosiderin Staining -Temperature (Vangie-wound Skin No Abnormality No Abnormality Appearance) (Pt Warm) (Pt Warm) -Tenderness on Palpation (Vangie-wound Yes No Skin Appearance) -Ulcer Cleansing Soap and Water Soap and Water -Foul Odor after Cleansing No No -Anesthetic Used 5% Lidocaine 5% Lidocaine Gel Gel -Wound Comment(s) too painful to remove taped drsg post op. will soak w/ saline and KIT PLANNER WILL REMOVE W/ EVAL Lower Limb Edema Present Yes Yes Right Calf (cm) 30.0 33.1 Right Ankle (cm) 23.2 Point of Measurement (cm from the medial 21.0 instep) Left Calf (cm) 36.2 35.1 Left Ankle (cm) 25.5 Left Foot (cm) 22.5 WC - Nurse 2 - General Ulcer CM Notes Start: 01/25/23 10:10 Freq: Status: Active Protocol: Activity Type Activity Date Activity User E-sign Co-sign Detail Recorded Client Recorded Date Recorded By Document 01/25/23 10:51 [id number] 01/25/23 10:58 Document 02/08/23 14:58 [id number] 02/08/23 15:07 Document 02/22/23 10:20 [id number] 02/22/23 10:27 01/25/23 02/08/23 02/22/23 10:51 14:58 10:20 Wound Center Nurse 2 #13 LEFT [address]EE -Time 10:52 15:05 -Correct Patient Yes Yes No -Correct Side, Site, Position Yes Yes No -Correct Procedure Yes Yes No -Procedure Performed Yes Yes No -Type of Procedure Debridement Debridement -Clinical Debridement Subcutaneous Subcutaneous -Tissue Removed Subcutaneous Subcutaneous -Post Debridement (cm) - Length 1.8 0.8 0 -Post Debridement (cm) - Width 1.3 0.8 0 -Post Debridement (cm) - Depth 0.1 0.1 0 -Total Square (Post) (cm) 2.34 0.64 0 -Area of Debridement (cm) - Length 1.8 0.8 0 -Area of Debridement (cm) - Width 1.3 0.8 0 -Total Square (Area) (cm) 2.34 0.64 0 -Tunneling No No -Undermining/Tunneling No No -Circular Undermining No No -Wound/Ulcer Outcome Not Healed Not Healed Healed- Epithelialized -Ulcer Cleansing Rinsed/ Rinsed/ Irrigated with Irrigated with Saline Saline -Foul Odor after Cleansing No No -Bioengineered Tissue No No -Bleeding Controlled with Pressure Pressure -Treatment Response Procedure Procedure Tolerated Well Tolerated Well -Offloading No No -Debridement - Subq, 1st 20sq cm No No #14 RIGHT MEDIAL ANKLE -Time 10:51 14:58 10:20 -Correct Patient Yes Yes Yes -Correct Side, Site, Position Yes Yes Yes -Correct Procedure Yes Yes Yes -Procedure Performed Yes Yes Yes -Type of Procedure Debridement Debridement Debridement -Clinical Debridement Subcutaneous Subcutaneous Subcutaneous -Tissue Removed Subcutaneous Subcutaneous Subcutaneous -Post Debridement (cm) - Length 2.0 1.5 1.5 -Post Debridement (cm) - Width 1.4 0.6 0.5 -Post Debridement (cm) - Depth 0.1 0.1 0.1 -Total Square (Post) (cm) 2.80 0.90 0.75 -Area of Debridement (cm) - Length 2.0 1.5 1.5 -Area of Debridement (cm) - Width 1.4 0.6 0.5 -Total Square (Area) (cm) 2.80 0.90 0.75 -Tunneling No No No -Undermining/Tunneling No No No -Circular Undermining No No No -Wound/Ulcer Outcome Not Healed Not Healed Not Healed -Ulcer Cleansing Rinsed/ Rinsed/ Rinsed/ Irrigated with Irrigated with Irrigated with Saline Saline Saline -Foul Odor after Cleansing No No No -Bioengineered Tissue No No No -Bleeding Controlled with Pressure Pressure Pressure -Treatment Response Procedure Procedure Procedure Tolerated Well Tolerated Well Tolerated Well -Offloading No No No -Debridement - Subq, 1st 20sq cm Yes Yes Yes #12 LEFT MEDIAL KNEE -Time 15:06 -Correct Patient No No No -Correct Side, Site, Position No No No -Correct Procedure No No No -Procedure Performed No No No -Post Debridement (cm) - Length 0.7 4 -Post Debridement (cm) - Width 1.0 4.5 -Post Debridement (cm) - Depth 0.1 0.4 -Total Square (Post) (cm) 0.70 18.0 -Area of Debridement (cm) - Length 0.7 4 -Area of Debridement (cm) - Width 1.0 4.5 -Total Square (Area) (cm) 0.70 18.0 -Wound/Ulcer Outcome Not Healed Not Healed Failed Flap -Debridement - Subq, 1st 20sq cm No No Pain Scale: 0-10 Numeric Is Patient Pain Free? Yes Yes Yes WC - Nurse 3 - General Ulcer D/C NN Start: 01/25/23 10:10 Freq: Status: Active Protocol: Activity Type Activity Date Activity User E-sign Co-sign Detail Recorded Client Recorded Date Recorded By Document 01/25/23 11:24 MW [id number] 01/25/23 11:26 MW Document 02/08/23 15:20 [facility] [id number] 02/08/23 15:22 BM 01/25/23 02/08/23 11:24 15:20 Wound Care Center Nurse 3 #13 LEFT LATERAL [address]EE -Ulcer Cleansing Rinsed/ Rinsed/ Irrigated with Irrigated with Saline Saline -Foul Odor after Cleansing No No -Negative Pressure Wound Therapy N/A -Primary Dressing Applied Silvercel NonAdherent Contact Layer -Other Dressing hydrogel; 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 surfacing 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 operator -Primary Dressing Covered/Secured with Dry Gauze, Dry Gauze, Secured with Secured with Tape Tape -Silvercel 1 #14 RIGHT MEDIAL ANKLE -Ulcer Cleansing Rinsed/ Rinsed/ Irrigated with Irrigated with Saline Saline -Foul Odor after Cleansing No No -Negative Pressure Wound Therapy N/A -Primary Dressing Applied C Hydrogel ($), NonAdherent NonAdherent Contact Layer Contact Layer -Other Dressing hydrogel; 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 surfacing machine operator -Primary Dressing Covered/Secured with Dry Gauze, Dry Gauze, Secured with Secured with Tape Tape #12 LEFT MEDIAL KNEE -Ulcer Cleansing Rinsed/ Rinsed/ Irrigated with Irrigated with Saline Saline -Foul Odor after Cleansing No No -Negative Pressure Wound Therapy N/A -Primary Dressing Applied NonAdherent Contact Layer -Other Dressing SILVERCEL 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 surfacing machine operator -Primary Dressing Covered/Secured with Dry Gauze, Dry Gauze, Secured with Secured with Tape Tape ble -Tubular Bandage Double Layer -Size of Tubigrip Used Size D -Size D ($) 2 Right -Lotion applied to leg before No compression wrap -Tubular Bandage Double Layer -Size of Tubigrip Used Size D -Size D ($) 2 Left -Lotion applied to leg before No compression wrap -Tubular Bandage Double Layer -Size of Tubigrip Used Size D -Size D ($) 2 Treatment Response Procedure Procedure Tolerated Well Tolerated Well Pain Scale: 0-10 Numeric Is Patient Pain Free? Yes Yes Teaching: Wound Center Dressing Your Wound -Person Taught Patient,Primary Caregiver -Teaching Method Discussion, Demonstration -Response to teaching Verbalize understanding WC - Visit Discharge Discharge Condition Stable Stable Ambulatory Status Ambulatory, Ambulatory, Walker Walker Transportation Private Auto Private Auto Accompanied by CAREGIVER caregiver Medication Reconcilliation completed & No provided to patient/care provider Clinical Summary of Care Provided Yes Assessment/Plan Assessment/Plan (1) Chronic ulcer of right ankle: CODE(S): L97.319 - Non-pressure chronic ulcer of right ankle with unspecified severity QUALIFIERS: Non-pressure ulcer stage: with fat layer exposed Qualified Code(s): L97.312 - Non-pressure chronic ulcer of right ankle with fat layer exposed (2) Skin ulcer of left knee with fat layer exposed: CODE(S): L97.822 - Non-pressure chronic ulcer of other part of left lower leg with fat layer exposed (3) Neoplasm of skin of lower leg: CODE(S): D49.2 - Neoplasm of unspecified behavior of bone, soft tissue, and skin (4) Actinic keratoses: CODE(S): L57.0 - Actinic keratosis (5) 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 (6) Other complications of skin graft (allograft) (autograft): CODE(S): T86.828 - Other complications of skin graft (allograft) (autograft) (7) Squamous cell carcinoma of left lower leg: CODE(S): C44.729 - Squamous cell carcinoma of skin of left lower limb, including hip (8) Neoplasm of skin of lower leg: CODE(S): D49.2 - Neoplasm of unspecified behavior of bone, soft tissue, and skin (9) Rheumatoid arthritis: CODE(S): M06.9 - Rheumatoid arthritis, unspecified (10) Former smoker: CODE(S): Z87.891 - Personal history of nicotine dependence PLAN: Plan Patient evaluated at the wound healing center. Wound care to her right medial ankle will be collagen hydrogel covered with adaptic and gauze daily. To the left medial knee skin flap, she will place Aquacel-Ag on the wound separation daily to help with the moisture. Compression will be a double tubigrip bilaterally with LEROY wrap to the left knee. She is encouraged to keep her legs elevated while sitting to help control her edema. I have discussed the left medial knee lesion that has now ulcerated with Dr. Bergman about my concerns that it is too similar to her previous squamous cell lesions. He agrees that it needs to be excised. I have spoken with the patient about having this excised as soon as it can be scheduled. Follow up [address] Bergman in the office. Call or come in sooner if develop issues.
== END 2023-02-22 23:59 | disposition home or self-care (01) ==
LOC: WC 09:45
PROVIDERS: PCP Family Medicine; Referring Provider Nurse Practitioner Family; Visit Provider Nurse Practitioner Family
DX: L97.822 Non-pressure chronic ulcer of other part of left lower leg with fat layer exposed (principal); L97.312 Non-pressure chronic ulcer of right ankle with fat layer exposed; L98.492 Non-pressure chronic ulcer of skin of other sites with fat layer exposed; M06.9 Rheumatoid arthritis, unspecified; J43.9 Emphysema, unspecified; I11.0 Hypertensive heart disease with heart failure; I50.9 Heart failure, unspecified; D49.2 Neoplasm of unspecified behavior of bone, soft tissue, and skin; Z79.82 Long term (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 aspirin; Z79.51 Long term (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 inhaled steroids; C44.722 Squamous cell carcinoma of skin of right lower limb, including hip; E78.00 Pure hypercholesterolemia, unspecified; Z79.01 Long term (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; C44.621 Squamous cell carcinoma of skin of unspecified upper limb, including shoulder; L57.0 Actinic keratosis; Z87.891 Personal history of nicotine dependence; R19.7 Diarrhea, unspecified; C44.729 Squamous cell carcinoma of skin of left lower limb, including hip; T86.828 Other complications of skin graft (allograft) (autograft)
CPT/HCPCS: 11042; 99213; G0463

== ENCOUNTER 2023-03-15 09:45 | Outpatient (RCR) | payer MEDICARE, OTHER, SELFPAY ==
[2023-02-23 00:08] VITALS: BP 158/48; PULSE 72; RESP 16; TEMP 36.4
[2023-03-08 14:41] VITALS: BP 147/57; PULSE 69; RESP 16; TEMP 36.1
--- NOTE | 2023-03-08 16:27 | PN.PCM_ITS ---
History of Present Illness Date of Service: 03/08/23 Chief Complaint: Right medial ankle ulcer and left medial knee wound History of Wound: 87 year old female who is already coming to the wound center for a right medial ankle ulcer secondary to some compromise to the healing skin graft has a new wound in the left medial knee area. 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 After surgery, the sutures did not hold and a complete wound separation was noted. Silver dressing changes were started. Also while here, she will be evaluated for an advanced skin substitute graft such as Thera-skin. Surgery on 12/09/22 for excision 1.5 cm cutaneous horn with actinic damage left lateral knee with rhomboid transposition skin flap reconstruction (14.58 cm2) and excision 0.7 cm cutaneous horn with actinic damage and atypia with possible squamous cell carcinoma in situ component dorsum right hand at MP joint index finger with FTSG reconstruction from right volar forearm (7.29 cm2). Surgery on 07/24/22 for excision 6.5 cm nonhealing ulcerated invasive well- differentiated squamous cell carcinoma left anteromedial leg with STSG recons truction from the lower anterior abdominal wall (63 cm2) and excision 2 cm squamous cell carcinoma right medial leg with STSG reconstruction from the lower anterior abdominal wall (16 cm2) and excision 2.5 cm squamous cell carcinoma right medial ankle with STSG reconstruction from the lower anterior abdominal wall (24.75 cm2). Pathology from 02/15/23 showed the left medial knee lesion was a well differentiated invasive squamous cell carcinoma (completely excised), solar keratosis and solar elastosis. Dermal chronic inflammation. The tumor measures 2.0 cm in greatest width and up to the depth of 0.5 cm. Perineural or lymph-vascular invasion is not identified. The tumor is 1.2 cm away from the closest 12 to 3 o?clock and 3 to 6 o?clock margin. The deep margin is 0.4 cm away from the tumor. Pathology from 12/09/22 of the left lateral knee biopsy showed superficially invasive well differentiated squamous cell carcinoma, actinic keratosis and mild to moderate atypia, and solar elastosis. Margins negative for carcinoma. the dorsum right hand lesion at MP joint index finger showed superficially invasive well differentiated squamous cell carcinoma, keratoacanthomatous type. Actinic keratosis with mild to moderate atypia and solar elastosis. The margins were negative for carcinoma. Pathology from 07/24/22 showed the right medial leg lesion was an invasive well-differentiated squamous cell carcinoma, with clear margins. The right medial ankle lesion was an invasive well-differentiated squamous cell carcinoma, with clear margins. The left anteromedial leg lesion was an invasive well-differentiated squamous cell carcinoma with associated ulceration. The depth of invasion was 4.5 mm. The anatomic level was V (carcinoma invades subcutaneous tissue). No lymphovasc ular invasion. No perineural invasion. Wound care - Silver dressing changes to right medial ankle and left medial knee wounds. Today she states she feels well and denies fever, chills, nausea and vomiting. Progress of Wound: Wound separation left medial knee after surgery 02/15/23. Minimal improvement in the right medial ankle ulcer. Objective Data Objective Data Vital Signs: Vital Signs Temp Pulse Resp BP O2 Del Method 97 F L 69 16 147/57 H Room Air 03/08/23 14:41 03/08/23 14:41 03/08/23 14:41 03/08/23 14:41 03/08/23 14:41 Oxygen Delivery Method Room Air Prealbumin from 07/25/22 was 15.8. Encourage nutritional supplementation with protein to help the healing process. Lab / Micro Data Attestation: I reviewed the patient's lab results. Charges/Coding Procedures Integumentary [id number]: [id number] Lian subq tissue 20 sq cm/< (right medial ankle - ICD-10 - L97.319, S81.002A, T86.828, C44.729, L57.0, Z94.5, Z86.14, Z85.828, Z87.891) Debridement Note Debridement Note Wound debrided: #14 medial ankle ulcer Laterality: Right Wound Grade/Stage: 2. Type of Debridement: Excisional debridement Anesthesia Used: 4% Lidocaine Solution and 5% Lidocaine Gel Depth: Down to and including healthy tissue and in the subcutaneous layer Percentage of wound debrided: 100 Instrument Used: 3mm curette Tissue Removed: subcutaneous tissue. Severity: Fat Layer Exposed Amount of bleeding with debridement: Mild Bleeding Controlled with: Pressure and Compression and gauze Patient tolerated procedure: Patient tolerated procedure well Post-Debridement Measurements and Additional Note: Post-Debridement Measurements/Treatment - Nurse 1 - General Ulcer Assessment Start: 03/08/23 14:41 Freq: Status: Active Protocol: ALEX Activity Type Activity Date Activity User E-sign Co-sign Detail Recorded Client Recorded Date Recorded By Document 03/08/23 14:41 [facility] [id number] 03/08/23 14:59 [facility] 03/08/23 14:41 WC - Today's Visit Information Type of service Follow-up Visit (Physician/ENERGY ECONOMIST ) Arrival Mode Ambulatory, Walker Transfer Assistance None Patient Identification Verified (Name & Yes ) Patient Requires Transmission-Based No Precautions Vital Signs Temperature (97.8 F-99.1 F) 97 F L Temperature Source Temporal Pulse Rate (60-100) 69 Pulse Location Monitor Respiratory Rate (12-18) 16 Respiratory rate source Observation Oxygen Delivery Method Room Air Blood Pressure (90/60-120/80) 147/57 H Blood Pressure Mean (mm Hg) 87 Source Monitor Position Sitting Blood Pressure Location Right Arm History Since Last Visit- (Skip if this is Patient's initial visit) Have you changed medications since your No last visit? Any new allergies or adverse reactions No Had a fall/change in ADL's that may No increase risk of falls Signs or symptoms of abuse and/or No neglect since last visit Have you been in the hospital since your No last visit? Has dressing in place as prescribed Yes Has compression in place as prescribed Yes Has offloadiing in place as prescribed N/A Experienced any changes in pain level or No management Left Footwear Regular Shoe Right Footwear Regular Shoe Pain Scale: 0-10 Numeric Is Patient Pain Free? Yes [facility] Nurse 1 - General Ulcer Measurement Start: 03/08/23 14:41 Freq: Status: Active Protocol: Activity Type Activity Date Activity User E-sign Co-sign Detail Recorded Client Recorded Date Recorded By Document 03/08/23 14:41 [facility] [id number] 03/08/23 14:59 [facility] 03/08/23 14:41 Wound Center Nurse 1 #13 LEFT [address]EE -Combined with other wound No -Current Size (cm) - Length 0.1 -Current Size (cm) - Width 0.1 -Current Size (cm) - Depth 0.1 -Total Square Cm 0.01 -Date of Last Picture (Recall this 03/08/23 field) -Photo Taken Yes -Epithelialization Large 67-100% -Texture (Vangie-wound Skin Appearance) Assessed -Moisture (Vangie-wound Skin Appearance) Assessed,Dry/ Scaly -Color (Vangie-wound Skin Appearance) Assessed -Temperature (Vangie-wound Skin No Abnormality Appearance) (Pt Warm) -Tenderness on Palpation (Vangie-wound No Skin Appearance) -Ulcer Cleansing Rinsed/ Irrigated with Saline -Foul Odor after Cleansing No -Anesthetic Used 4% Lidocaine Solution #14 RIGHT MEDIAL ANKLE -Combined with other wound No -Current Size (cm) - Length 2.8 -Current Size (cm) - Width 1.3 -Current Size (cm) - Depth 0.1 -Total Square Cm 3.64 -Date of Last Picture (Recall this 03/08/23 field) -Photo Taken Yes -Epithelialization None Present -Tunneling No -Undermining/Tunneling No -Circular Undermining No -Exudate Amt Medium -Exudate Type Serous -Wound Margin Distinct, Outline Attached -Granulation Amt None Present (0 %) -Slough/Fibrin Yes -Necrosis Amt Large (67-100%) -Necrotic Tissue Type Adherent Slough -Texture (Vangie-wound Skin Appearance) Assessed, Scarring -Moisture (Vangie-wound Skin Appearance) Assessed,Dry/ Scaly -Color (Vangie-wound Skin Appearance) Assessed, Erythema -Temperature (Vangie-wound Skin No Abnormality Appearance) (Pt Warm) -Tenderness on Palpation (Vangie-wound Yes Skin Appearance) -Ulcer Cleansing Rinsed/ Irrigated with Saline -Foul Odor after Cleansing No -Anesthetic Used 4% Lidocaine Solution #12 LEFT MEDIAL KNEE -Combined with other wound No -Current Size (cm) - Length 5.3 -Current Size (cm) - Width 7.7 -Current Size (cm) - Depth 0.4 -Total Square Cm 40.81 -Date of Last Picture (Recall this 03/08/23 field) -Photo Taken Yes -Epithelialization None Present -Tunneling No -Undermining/Tunneling No -Circular Undermining No -Exudate Amt Medium -Exudate Type Serosanguineous -Wound Margin Thickened -Granulation Amt Small (1-33%) -Granulation Quality [place] -Slough/Fibrin Yes -Necrosis Amt Large (67-100%) -Necrotic Tissue Type Adherent Slough -Texture (Vangie-wound Skin Appearance) Assessed, Scarring -Moisture (Vangie-wound Skin Appearance) Assessed,Dry/ Scaly -Color (Vangie-wound Skin Appearance) Assessed -Temperature (Vangie-wound Skin No Abnormality Appearance) (Pt Warm) -Tenderness on Palpation (Vangie-wound No Skin Appearance) -Ulcer Cleansing Soap and Water -Foul Odor after Cleansing No -Anesthetic Used 4% Lidocaine Solution WC - Nurse 2 - General Ulcer CM Notes Start: 03/08/23 14:41 Freq: Status: Active Protocol: Activity Type Activity Date Activity User E-sign Co-sign Detail Recorded Client Recorded Date Recorded By Document 03/08/23 15:17 [id number] 03/08/23 15:26 [facility] 03/08/23 15:17 Wound Center Nurse 2 #13 LEFT LAT[address]AL [address]EE -Time 15:19 -Correct Patient No -Correct Side, Site, Position No -Correct Procedure No -Procedure Performed No -Tunneling No -Wound/Ulcer Outcome Healed- Epithelialized -Ulcer Cleansing Rinsed/ Irrigated with Saline -Foul Odor after Cleansing No -Bioengineered Tissue No -Bleeding Controlled with Pressure -Treatment Response Procedure Tolerated Well -Offloading No -Debridement - Subq, 1st 20sq cm Yes #14 RIGHT MEDIAL ANKLE -Time 15:19 -Correct Patient Yes -Correct Side, Site, Position Yes -Correct Procedure Yes -Procedure Performed Yes -Type of Procedure Debridement -Clinical Debridement Subcutaneous -Tissue Removed Subcutaneous -Post Debridement (cm) - Length 1.2 -Post Debridement (cm) - Width 1.1 -Post Debridement (cm) - Depth 0.1 -Total Square (Post) (cm) 1.32 -Area of Debridement (cm) - Length 1.2 -Area of Debridement (cm) - Width 1.1 -Total Square (Area) (cm) 1.32 -Tunneling No -Undermining/Tunneling No -Circular Undermining No -Wound/Ulcer Outcome Not Healed -Ulcer Cleansing Rinsed/ Irrigated with Saline -Foul Odor after Cleansing No -Bioengineered Tissue No -Bleeding Controlled with Pressure -Treatment Response Procedure Tolerated Well -Offloading No -Debridement - Subq, 1st 20sq cm No #12 LEFT MEDIAL KNEE -Time 15:25 -Correct Patient Yes -Correct Side, Site, Position Yes -Correct Procedure Yes -Procedure Performed Yes -Type of Procedure Debridement -Clinical Debridement Subcutaneous -Tissue Removed Subcutaneous -Post Debridement (cm) - Length 5.5 -Post Debridement (cm) - Width 7 -Post Debridement (cm) - Depth 0.7 -Total Square (Post) (cm) 38.5 -Area of Debridement (cm) - Length 5.5 -Area of Debridement (cm) - Width 7 -Total Square (Area) (cm) 38.5 -Tunneling No -Undermining/Tunneling No -Circular Undermining No -Wound/Ulcer Outcome Not Healed -Ulcer Cleansing Rinsed/ Irrigated with Saline -Foul Odor after Cleansing No -Bioengineered Tissue No -Bleeding Controlled with Pressure -Treatment Response Procedure Tolerated Well -Offloading No -Debridement - Subq, 1st 20sq cm Yes -Debridement, SubQ, ea addt'l 20sq cm 1 or part thereof Pain Scale: 0-10 Numeric Is Patient Pain Free? Yes - Nurse 3 - General Ulcer D/C NN Start: 03/08/23 14:41 Freq: Status: Active Protocol: Activity Type Activity Date Activity User E-sign Co-sign Detail Recorded Client Recorded Date Recorded By Document 03/08/23 15:52 [address] [id number] 03/08/23 15:54 PL 03/08/23 15:52 Wound Care Center Nurse 3 #14 RIGHT MEDIAL ANKLE -Ulcer Cleansing Rinsed/ Irrigated with Saline -Primary Dressing Applied Aquacel AG 4x4 -Primary Dressing Covered/Secured with Dry Gauze, Secured with Tape -Aquacel AG 4x4 1 #12 LEFT MEDIAL KNEE -Ulcer Cleansing Rinsed/ Irrigated with Saline -Foul Odor after Cleansing No -Other Dressing Aquacel ag,ABD -Primary Dressing Covered/Secured with Dry Gauze & Roll Gauze, Secured with Tape Bilateral -Tubular Bandage Double Layer -Size of Tubigrip Used Size D -Size D ($) 4 Pain Scale: 0-10 Numeric Is Patient Pain Free? Yes WC - Visit Discharge Discharge Condition Stable Ambulatory Status Ambulatory, Walker Transportation Private Auto Additional Wound Wound debrided: #12 Medial knee ulcer Laterality: Left Wound Grade/Stage: 2. Type of Debridement: Excisional debridement Anesthesia Used: 4% Lidocaine Solution and 5% Lidocaine Gel Depth: Down to and including healthy tissue and in the subcutaneous layer Percentage of wound debrided: 100 Instrument Used: 7mm curette Tissue Removed: Devitalized tissue and slough along with subcutaneous tissue. Severity: Fat Layer Exposed Amount of bleeding with debridement: Mild Bleeding Controlled with: Pressure and Compression and gauze Patient tolerated procedure: Patient tolerated procedure well and - (A wound culture was obtained today.) Assessment/Plan Assessment/Plan (1) Chronic ulcer of right ankle: CODE(S): L97.319 - Non-pressure chronic ulcer of right ankle with unspecified severity QUALIFIERS: Non-pressure ulcer stage: with fat layer exposed Qualified Code(s): L97.312 - Non-pressure chronic ulcer of right ankle with fat layer exposed (2) Open wound of left knee with complication: CODE(S): S81.002A - Unspecified open wound, left knee, initial encounter (3) Other complications of skin graft (allograft) (autograft): CODE(S): T86.828 - Other complications of skin graft (allograft) (autograft) (4) Squamous cell carcinoma of skin of left lower extremity: CODE(S): C44.729 - Squamous cell carcinoma of skin of left lower limb, inc luding hip (5) Actinic keratoses: CODE(S): L57.0 - Actinic keratosis (6) 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 Continue compression with double tubigrip. She is encouraged to keep her legs elevated while sitting to help control her edema. Wound culture was obtained today. A positive culture will necessitate antibiotic therapy. Next week will apply for medical approval for advanced skin substitute graft (Thera-skin). Once approved she will decide on the Thera-skin versus going to operating room and placement of an autograft which is taking skin from herself. Encourage nutritional supplementation with protein to help the healing process. Her Prealbumin from 07/25/22 was 15.8. Followup one week.
[2023-03-15 10:15] VITALS: BP 156/49; PULSE 68; RESP 20; TEMP 36.4
--- NOTE | 2023-03-15 12:00 | PCM.WC.PN ---
History of Present Illness Date of Service: 03/15/23 Chief Complaint: Right medial ankle ulcer and left lateral knee wound History of Wound: 87 year old female is known to me. She has had a couple recent surgeries for excision of squamous cell carcinoma. The right medial ankle skin graft has had some compromise and the left lateral knee skin flap has one edge of compromise. Her care was transferred to the wound center from our office. 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 Surgery on 12/09/22 for excision 1.5 cm cutaneous horn with actinic damage left lateral knee with rhomboid transposition skin flap reconstruction (14.58 cm2) and excision 0.7 cm cutaneous horn with actinic damage and atypia with possible squamous cell carcinoma in situ component dorsum right hand at MP joint index finger with FTSG reconstruction from right volar forearm (7.29 cm2). Surgery on 07/24/22 for excision 6.5 cm nonhealing ulcerated invasive well-differentiated squamous cell carcinoma left anteromedial leg with STSG reconstruction from the lower anterior abdominal wall (63 cm2) and excision 2 cm squamous cell carcinoma right medial leg with STSG reconstruction from the lower anterior abdominal wall (16 cm2) and excision 2.5 cm squamous cell carcinoma right medial ankle with STSG reconstruction from the lower anterior abdominal wall (24.75 cm2). Pathology from 12/09/22 of the left lateral knee biopsy showed superficially invasive well differentiated squamous cell carcinoma, actinic keratosis and mild to moderate atypia, and solar elastosis. Margins negative for carcinoma. the dorsum right hand lesion at MP joint index finger showed superficially invasive well differentiated squamous cell carcinoma, keratoacanthomatous type. Actinic keratosis with mild to moderate atypia and solar elastosis. The margins were negative for carcinoma. Pathology from 07/24/22 showed the right medial leg lesion was an invasive well-differentiated squamous cell carcinoma, with clear margins. The right medial ankle lesion was an invasive well-differentiated squamous cell carcinoma, with clear margins. The left anteromedial leg lesion was an invasive well-differentiated squamous cell carcinoma with associated ulceration. The depth of invasion was 4.5 mm. The anatomic level was V (carcinoma invades subcutaneous tissue). No lymphovascular invasion. No perineural invasion. A wound culture was obtained from the right medial leg skin graft on 08/20/22 which was positive for Proteus mirabilis, MRSA, and Enterococcus faecalis. She was started on Levaquin and Linezolid, but those were held because of her diarrhea. After the diarrhea resolved, she restarted the Linezolid, but she did not tolerating it due to the diarrhea and nausea she was experiencing so it was stopped. She was able to complete the Levaquin. Wound culture obtained on 11/19/22 of a red, inflamed blister on her left lateral foot which was positive for Staphylococcus aureus and she was treated with Doxycycline. Wound culture obtained 03/08/23 and was positive for Escherichia coli and she is being treated with Augmentin. Her PET scan has been done. She met with Oncologist and her will follow up with him is in 6 months. She met with Radiation Oncologist to discuss radiation therapy and they are recommending radiation therapy. She would start the radiation therapy after her skin graft areas are healed. Her PET scan is normal, so she would have benefited from local control with Radiation Therapy. I spoke with Dr. Rodriguez's office in mid November and he stated she is out of the window for radiation for her left leg. This was explained to the patient. Ultrasound of left leg was ordered on 12/24/22 and was negative for DVT. Her swelling is slowly resolving. Today she states she feels well and denies fever, chills, nausea and vomiting. Progress of Wound: Right medial ankle ulcer is smaller. She has had difficulties with the recent skin flap left medial knee after excision of ulcerated invasive squamous cell carcinoma on 02/15/23.? The incision broke down and .? Patient denies trauma. The whole incision has .?? Objective Data Objective Data Vital Signs: Vital Signs Temp Pulse Resp BP O2 Del Method 97.5 F L 68 20 H 156/49 H Room Air 03/15/23 10:15 03/15/23 10:15 03/15/23 10:15 03/15/23 10:15 03/08/23 14:41 Oxygen Delivery Method Room Air Lab / Micro Data Micro: Microbiology 03/08/23 15:20 Wound Abcess - Knee Gram Stain - Final 03/08/23 15:20 Wound Abcess - Knee Wound Culture - Final Escherichia coli 03/08/23 15:20 Wound Abcess - Knee Anaerobic Culture - Final No anaerobic bacteria isolated. Charges/Coding Procedures Integumentary 111xxx-113xx: [id number] Lian subq tissue 20 sq cm/< (right medial ankle ulcer) Debridement Note Debridement Note Wound debrided: #14 medial ankle ulcer Laterality: Right Type of Debridement: Excisional debridement Anesthesia Used: 4% Lidocaine Solution and 5% Lidocaine Gel Depth: Down to and including healthy tissue and in the subcutaneous layer Percentage of wound debrided: 100 Instrument Used: 3mm curette Tissue Removed: Devitalized tissue and slough Severity: Limited To Skin Breakdown Amount of bleeding with debridement: Mild Bleeding Controlled with: Pressure and Compression and gauze Patient tolerated procedure: Patient tolerated procedure well Post-Debridement Measurements and Additional Note: Post-Debridement Measurements/Treatment - Nurse 1 - General Ulcer Assessment Start: 03/08/23 14:41 Freq: Status: Active Protocol: ALEX Activity Type Activity Date Activity User E-sign Co-sign Detail Recorded Client Recorded Date Recorded By Document 03/08/23 14:41 [facility] [id number] 03/08/23 14:59 [facility] Document 03/15/23 10:15 DL [id number] 03/15/23 10:19 DL 03/08/23 03/15/23 14:41 10:15 - Today's Visit Information Type of service Follow-up Visit Follow-up Visit (Physician/CUSTOMER SERVICE AND SALES CONSULTANT (Physician/CUSTOMER SERVICE AND SALES CONSULTANT ) ) Arrival Mode Ambulatory, Ambulatory, Walker Walker Transfer Assistance None None Patient Identification Verified (Name & Yes Yes ) Patient Requires Transmission-Based No No Precautions Vital Signs Temperature (97.8 F-99.1 F) 97 F L 97.5 F L Temperature Source Temporal Temporal Pulse Rate (60-100) 69 68 Pulse Location Monitor Monitor Respiratory Rate (12-18) 16 20 H Respiratory rate source Observation Observation Oxygen Delivery Method Room Air Blood Pressure (90/60-120/80) 147/57 H 156/49 H Blood Pressure Mean (mm Hg) 87 84 Source Monitor Monitor Position Sitting Blood Pressure Location Right Arm History Since Last Visit- (Skip if this is Patient's initial visit) Have you changed medications since your No last visit? Any new allergies or adverse reactions No No Had a fall/change in ADL's that may No No increase risk of falls Signs or symptoms of abuse and/or No No neglect since last visit Have you been in the hospital since your No No last visit? Has dressing in place as prescribed Yes Yes Has compression in place as prescribed Yes Yes Has offloadiing in place as prescribed N/A N/A Experienced any changes in pain level or No No management Left Footwear Regular Shoe Right Footwear Regular Shoe Pain Scale: 0-10 Numeric Is Patient Pain Free? Yes Yes WC - Nurse 1 - General Ulcer Measurement Start: 03/08/23 14:41 Freq: Status: Active Protocol: Activity Type Activity Date Activity User E-sign Co-sign Detail Recorded Client Recorded Date Recorded By Document 03/08/23 14:41 [facility] [id number] 03/08/23 14:59 [facility] Document 03/15/23 10:15 DL [id number] 03/15/23 10:19 DL 03/08/23 03/15/23 14:41 10:15 Wound Center Nurse 1 #[address] -Combined with other wound No -Current Size (cm) - Length 0.1 -Current Size (cm) - Width 0.1 -Current Size (cm) - Depth 0.1 -Total Square Cm 0.01 -Date of Last Picture (Recall this 03/08/23 field) -Photo Taken Yes -Epithelialization Large 67-100% -Texture (Vangie-wound Skin Appearance) Assessed -Moisture (Vangie-wound Skin Appearance) Assessed,Dry/ Scaly -Color (Vangie-wound Skin Appearance) Assessed -Temperature (Vangie-wound Skin No Abnormality Appearance) (Pt Warm) -Tenderness on Palpation (Vangie-wound No Skin Appearance) -Ulcer Cleansing Rinsed/ Irrigated with Saline -Foul Odor after Cleansing No -Anesthetic Used 4% Lidocaine Solution #14 RIGHT MEDIAL ANKLE -Combined with other wound No -Current Size (cm) - Length 2.8 1.7 -Current Size (cm) - Width 1.3 0.4 -Current Size (cm) - Depth 0.1 0.1 -Total Square Cm 3.64 0.68 -Date of Last Picture (Recall this 03/08/23 field) -Photo Taken Yes -Epithelialization None Present -Tunneling No -Undermining/Tunneling No -Circular Undermining No -Exudate Amt Medium Small -Exudate Type Serous Serosanguineous -Wound Margin Distinct, Distinct, Outline Outline Attached Attached -Granulation Amt None Present (0 Large (67-100%) %) -Granulation Quality [place] -Slough/Fibrin Yes -Necrosis Amt Large (67-100%) None Present (0 %) -Necrotic Tissue Type Adherent Slough -Structure Exposed N/A -Texture (Vangie-wound Skin Appearance) Assessed, Scarring Scarring -Moisture (Vangie-wound Skin Appearance) Assessed,Dry/ Dry/Scaly Scaly -Color (Vangie-wound Skin Appearance) Assessed, Hemosiderin Erythema Staining -Temperature (Vangie-wound Skin No Abnormality No Abnormality Appearance) (Pt Warm) (Pt Warm) -Tenderness on Palpation (Vangie-wound Yes No Skin Appearance) -Ulcer Cleansing Rinsed/ Soap and Water Irrigated with Saline -Foul Odor after Cleansing No Yes, Due to Product Use -Anesthetic Used 4% Lidocaine 5% Lidocaine Solution Gel #12 LEFT MEDIAL KNEE -Combined with other wound No -Current Size (cm) - Length 5.3 5.8 -Current Size (cm) - Width 7.7 7.3 -Current Size (cm) - Depth 0.4 0.5 -Total Square Cm 40.81 42.34 -Date of Last Picture (Recall this 03/08/23 field) -Photo Taken Yes -Epithelialization None Present -Tunneling No -Undermining/Tunneling No -Circular Undermining No -Exudate Amt Medium Medium -Exudate Type Serosanguineous Serosanguineous -Wound Margin Thickened Distinct, Outline Attached -Granulation Amt Small (1-33%) Medium (34-66%) -Granulation Quality [place],Red -Slough/Fibrin Yes -Necrosis Amt Large (67-100%) Medium (34-66%) -Necrotic Tissue Type Adherent Slough Adherent Slough -Structure Exposed N/A -Texture (Vangie-wound Skin Appearance) Assessed, Scarring Scarring -Moisture (Vangie-wound Skin Appearance) Assessed,Dry/ Dry/Scaly Scaly -Color (Vangie-wound Skin Appearance) Assessed Hemosiderin Staining -Temperature (Vangie-wound Skin No Abnormality No Abnormality Appearance) (Pt Warm) (Pt Warm) -Tenderness on Palpation (Vangie-wound No No Skin Appearance) -Ulcer Cleansing Soap and Water Soap and Water -Foul Odor after Cleansing No No -Anesthetic Used 4% Lidocaine 5% Lidocaine Solution Gel Right Calf (cm) 38 Right Ankle (cm) 21.5 Left Calf (cm) 33.5 Left Ankle (cm) 21.7 - Nurse 2 - General Ulcer CM Notes Start: 03/08/23 14:41 Freq: Status: Active Protocol: Activity Type Activity Date Activity User E-sign Co-sign Detail Recorded Client Recorded Date Recorded By Document 03/08/23 15:17 [id number] 03/08/23 15:26 Document 03/15/23 10:28 [id number] 03/15/23 10:36 03/08/23 03/15/23 15:17 10:28 Wound Center Nurse 2 #13 LEFT [address]EE -Time 15:19 -Correct Patient No -Correct Side, Site, Position No -Correct Procedure No -Procedure Performed No -Tunneling No -Wound/Ulcer Outcome Healed- Epithelialized -Ulcer Cleansing Rinsed/ Irrigated with Saline -Foul Odor after Cleansing No -Bioengineered Tissue No -Bleeding Controlled with Pressure -Treatment Response Procedure Tolerated Well -Offloading No -Debridement - Subq, 1st 20sq cm Yes #14 RIGHT MEDIAL ANKLE -Time 15:19 10:33 -Correct Patient Yes Yes -Correct Side, Site, Position Yes Yes -Correct Procedure Yes Yes -Procedure Performed Yes Yes -Type of Procedure Debridement Debridement -Clinical Debridement Subcutaneous Subcutaneous -Tissue Removed Subcutaneous Subcutaneous -Post Debridement (cm) - Length 1.2 2.7 -Post Debridement (cm) - Width 1.1 0.7 -Post Debridement (cm) - Depth 0.1 0.1 -Total Square (Post) (cm) 1.32 1.89 -Area of Debridement (cm) - Length 1.2 2.7 -Area of Debridement (cm) - Width 1.1 0.7 -Total Square (Area) (cm) 1.32 1.89 -Tunneling No No -Undermining/Tunneling No No -Circular Undermining No No -Wound/Ulcer Outcome Not Healed Not Healed -Ulcer Cleansing Rinsed/ Rinsed/ Irrigated with Irrigated with Saline Saline -Foul Odor after Cleansing No No -Bioengineered Tissue No No -Bleeding Controlled with Pressure Pressure -Treatment Response Procedure Procedure Tolerated Well Tolerated Well -Offloading No No -Debridement - Subq, 1st 20sq cm No No #12 LEFT MEDIAL KNEE -Time 15:25 10:28 -Correct Patient Yes Yes -Correct Side, Site, Position Yes Yes -Correct Procedure Yes Yes -Procedure Performed Yes Yes -Type of Procedure Debridement Debridement -Clinical Debridement Subcutaneous Subcutaneous -Tissue Removed Subcutaneous Subcutaneous -Post Debridement (cm) - Length 5.5 6.0 -Post Debridement (cm) - Width 7 7.4 -Post Debridement (cm) - Depth 0.7 0.5 -Total Square (Post) (cm) 38.5 44.40 -Area of Debridement (cm) - Length 5.5 6.0 -Area of Debridement (cm) - Width 7 7.4 -Total Square (Area) (cm) 38.5 44.40 -Tunneling No No -Undermining/Tunneling No No -Circular Undermining No No -Wound/Ulcer Outcome Not Healed Not Healed -Ulcer Cleansing Rinsed/ Rinsed/ Irrigated with Irrigated with Saline Saline -Foul Odor after Cleansing No No -Bioengineered Tissue No No -Bleeding Controlled with Pressure Pressure -Treatment Response Procedure Procedure Tolerated Well Tolerated Well -Offloading No No -Debridement - Subq, 1st 20sq cm Yes Yes -Debridement, SubQ, ea addt'l 20sq cm 1 2 or part thereof Pain Scale: 0-10 Numeric Is Patient Pain Free? Yes Yes - Nurse 3 - General Ulcer D/C NN Start: 03/08/23 14:41 Freq: Status: Active Protocol: Activity Type Activity Date Activity User E-sign Co-sign Detail Recorded Client Recorded Date Recorded By Document 03/08/23 15:52 [id number] 03/08/23 15:54 Document 03/15/23 11:15 [id number] 03/15/23 11:17 PL 03/08/23 03/15/23 15:52 11:15 Wound Care Center Nurse 3 #14 RIGHT MEDIAL ANKLE -Ulcer Cleansing Rinsed/ Rinsed/ Irrigated with Irrigated with Saline Saline -Foul Odor after Cleansing No -Primary Dressing Applied Aquacel AG 4x4 Aquacel AG 4x4, Mepilex Border -Primary Dressing Covered/Secured with Dry Gauze, Secured with Tape -Aquacel AG 4x4 1 1 -Mepilex Border 1 #12 LEFT MEDIAL KNEE -Ulcer Cleansing Rinsed/ Rinsed/ Irrigated with Irrigated with Saline Saline -Foul Odor after Cleansing No -Other Dressing Aquacel ag,ABD Aquacel ag -Primary Dressing Covered/Secured with Dry Gauze & Dry Gauze & Roll Gauze, Roll Gauze Secured with Tape Bilateral -Tubular Bandage Double Layer Double Layer -Size of Tubigrip Used Size D Size D -Size D ($) 4 8 Pain Scale: 0-10 Numeric Is Patient Pain Free? Yes Yes WC - Visit Discharge Discharge Condition Stable Stable Ambulatory Status Ambulatory, Ambulatory, Walker Walker Transportation Private Auto Private Auto Additional Wound Wound debrided: #12 Medial knee ulcer Laterality: Left Type of Debridement: Excisional debridement Anesthesia Used: 4% Lidocaine Solution and 5% Lidocaine Gel Depth: Down to and including healthy tissue and in the subcutaneous layer Percentage of wound debrided: 100 Instrument Used: 5mm curette Tissue Removed: Devitalized tissue and slough Severity: Fat Layer Exposed Amount of bleeding with debridement: Mild Bleeding Controlled with: Pressure and Compression and gauze Patient tolerated procedure: Patient tolerated procedure well Assessment/Plan Assessment/Plan (1) Skin ulcer of left knee with fat layer exposed: CODE(S): L97.822 - Non-pressure chronic ulcer of other part of left lower leg with fat layer exposed (2) Chronic ulcer of right ankle: CODE(S): L97.319 - Non-pressure chronic ulcer of right ankle with unspecified severity QUALIFIERS: Non-pressure ulcer stage: with fat layer exposed Qualified Code(s): L97.312 - Non-pressure chronic ulcer of right ankle with fat layer exposed (3) Neoplasm of skin of lower leg: CODE(S): D49.2 - Neoplasm of unspecified behavior of bone, soft tissue, and skin (4) Actinic keratoses: CODE(S): L57.0 - Actinic keratosis (5) 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 (6) Other complications of skin graft (allograft) (autograft): CODE(S): T86.828 - Other complications of skin graft (allograft) (autograft) (7) Squamous cell carcinoma of left lower leg: CODE(S): C44.729 - Squamous cell carcinoma of skin of left lower limb, including hip (8) Neoplasm of skin of lower leg: CODE(S): D49.2 - Neoplasm of unspecified behavior of bone, soft tissue, and skin (9) Rheumatoid arthritis: CODE(S): M06.9 - Rheumatoid arthritis, unspecified (10) Former smoker: CODE(S): Z87.891 - Personal history of nicotine dependence PLAN: Plan Patient evaluated at the wound healing center. Wound care to her right medial ankle and the left medial knee skin flap, she will place Aquacel-Ag covered with gauze daily after washing with soap and water. She would benefit from an advanced wound healing product such as Theraskin. It would be applied weekly at the wound healing center for 10 applications over a 12 week period. This would help expidite her wound healing. Compression will be a double tubigrip bilaterally with LEROY wrap to the left knee. She is encouraged to keep her legs elevated while sitting to help control her edema. Wound culture obtained 03/08/23 and was positive for Escherichia coli and she is being treated with Augmentin. Follow up 2 weeks, due to a her having other appointments next week. Call or come in sooner if develop issues.
== END 2023-03-25 23:59 | disposition home or self-care (01) ==
LOC: WC 09:45
PROVIDERS: PCP Family Medicine; Referring Provider Nurse Practitioner Family; Visit Provider Surgery
DX: L97.312 Non-pressure chronic ulcer of right ankle with fat layer exposed (principal); L97.822 Non-pressure chronic ulcer of other part of left lower leg with fat layer exposed; M06.9 Rheumatoid arthritis, unspecified; D49.2 Neoplasm of unspecified behavior of bone, soft tissue, and skin; L57.0 Actinic keratosis; Z94.5 Skin transplant status; C44.722 Squamous cell carcinoma of skin of right lower limb, including hip; Z87.891 Personal history of nicotine dependence; C44.621 Squamous cell carcinoma of skin of unspecified upper limb, including shoulder; T86.828 Other complications of skin graft (allograft) (autograft)
CPT/HCPCS: 11042; 11045; 87070; 87075; 87077; 87186; 87205

== ENCOUNTER 2023-04-12 14:45 | Outpatient (RCR) | payer MEDICARE, OTHER, SELFPAY ==
[2023-03-26 00:27] VITALS: BP 156/49; PULSE 68; RESP 20; TEMP 36.4
[2023-03-31 10:53] VITALS: RESP 20; TEMP 36.4
--- NOTE | 2023-03-31 12:31 | PCM.WC.PN ---
History of Present Illness Date of Service: 03/31/23 Chief Complaint: Right medial ankle ulcer and left lateral knee wound History of Wound: 87 year old female is known to me. She has had a couple recent surgeries for excision of squamous cell carcinoma. The right medial ankle skin graft has had some compromise and the left lateral knee skin flap has one edge of compromise. Her care was transferred to the wound center from our office. 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 Surgery on 12/09/22 for excision 1.5 cm cutaneous horn with actinic damage left lateral knee with rhomboid transposition skin flap reconstruction (14.58 cm2) and excision 0.7 cm cutaneous horn with actinic damage and atypia with possible squamous cell carcinoma in situ component dorsum right hand at MP joint index finger with FTSG reconstruction from right volar forearm (7.29 cm2). Surgery on 07/24/22 for excision 6.5 cm nonhealing ulcerated invasive well-differentiated squamous cell carcinoma left anteromedial leg with STSG reconstruction from the lower anterior abdominal wall (63 cm2) and excision 2 cm squamous cell carcinoma right medial leg with STSG reconstruction from the lower anterior abdominal wall (16 cm2) and excision 2.5 cm squamous cell carcinoma right medial ankle with STSG reconstruction from the lower anterior abdominal wall (24.75 cm2). Pathology from 12/09/22 of the left lateral knee biopsy showed superficially invasive well differentiated squamous cell carcinoma, actinic keratosis and mild to moderate atypia, and solar elastosis. Margins negative for carcinoma. the dorsum right hand lesion at MP joint index finger showed superficially invasive well differentiated squamous cell carcinoma, keratoacanthomatous type. Actinic keratosis with mild to moderate atypia and solar elastosis. The margins were negative for carcinoma. Pathology from 07/24/22 showed the right medial leg lesion was an invasive well-differentiated squamous cell carcinoma, with clear margins. The right medial ankle lesion was an invasive well-differentiated squamous cell carcinoma, with clear margins. The left anteromedial leg lesion was an invasive well-differentiated squamous cell carcinoma with associated ulceration. The depth of invasion was 4.5 mm. The anatomic level was V (carcinoma invades subcutaneous tissue). No lymphovascular invasion. No perineural invasion. A wound culture was obtained from the right medial leg skin graft on 08/20/22 which was positive for Proteus mirabilis, MRSA, and Enterococcus faecalis. She was started on Levaquin and Linezolid, but those were held because of her diarrhea. After the diarrhea resolved, she restarted the Linezolid, but she did not tolerating it due to the diarrhea and nausea she was experiencing so it was stopped. She was able to complete the Levaquin. Wound culture obtained on 11/19/22 of a red, inflamed blister on her left lateral foot which was positive for Staphylococcus aureus and she was treated with Doxycycline. Wound culture obtained 03/08/23 and was positive for Escherichia coli and she is being treated with Augmentin. Her PET scan has been done. She met with Oncologist and her will follow up with him is in 6 months. She met with Radiation Oncologist to discuss radiation therapy and they are recommending radiation therapy. She would start the radiation therapy after her skin graft areas are healed. Her PET scan is normal, so she would have benefited from local control with Radiation Therapy. I spoke with Dr. Rodriguez's office in mid November and he stated she is out of the window for radiation for her left leg. This was explained to the patient. Ultrasound of left leg was ordered on 12/24/22 and was negative for DVT. Her swelling is slowly resolving. Today she states she feels well and denies fever, chills, nausea and vomiting. Progress of Wound: Right medial ankle ulcer is smaller. She has had difficulties with the recent skin flap left medial knee after excision of ulcerated invasive squamous cell carcinoma on 02/15/23.? She now has a non healing ulcer on her left medial knee. She has met with Dr. Rodriguez, Radiation Oncologist, and she has decided to have radiation so it has been decided to skin graft her to give her the best opportunity of healing the quickest way possible so she doesn't miss her window to have radiation. Objective Data Objective Data Vital Signs: Vital Signs Temp Pulse Resp BP 97.6 F L 68 20 H 156/49 H 03/31/23 10:53 03/26/23 00:27 03/31/23 10:53 03/26/23 00:27 Charges/Coding Procedures Integumentary [id number]: [id number] Lian subq tissue 20 sq cm/< (right medial ankle - 58 modifier) Debridement Note Debridement Note Wound debrided: #14 medial ankle ulcer Laterality: Right Type of Debridement: Excisional debridement Anesthesia Used: 4% Lidocaine Solution and 5% Lidocaine Gel Depth: Down to and including healthy tissue and in the subcutaneous layer Percentage of wound debrided: 100 Instrument Used: 3mm curette Tissue Removed: Devitalized tissue and slough Severity: Limited To Skin Breakdown Amount of bleeding with debridement: Mild Bleeding Controlled with: Pressure and Compression and gauze Patient tolerated procedure: Patient tolerated procedure well Post-Debridement Measurements and Additional Note: Post-Debridement Measurements/Treatment - Nurse 1 - General Ulcer Assessment Start: 03/31/23 10:53 Freq: Status: Active Protocol: ALEX Activity Type Activity Date Activity User E-sign Co-sign Detail Recorded Client Recorded Date Recorded By Document 03/31/23 10:53 DL [id number] 03/31/23 10:55 DL 03/31/23 10:53 WC - Today's Visit Information Type of service Follow-up Visit (Physician/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 Any new allergies or adverse reactions No Had a fall/change in ADL's that may No increase risk of falls Signs or symptoms of abuse and/or No neglect since last visit Have you been in the hospital since your No last visit? Has dressing in place as prescribed Yes Has compression in place as prescribed Yes Has offloadiing in place as prescribed N/A Experienced any changes in pain level or No management Pain Scale: 0-10 Numeric Is Patient Pain Free? Yes - Nurse 1 - General Ulcer Measurement Start: 03/31/23 10:53 Freq: Status: Active Protocol: Activity Type Activity Date Activity User E-sign Co-sign Detail Recorded Client Recorded Date Recorded By Document 03/31/23 10:53 DL [id number] 03/31/23 10:55 DL 03/31/23 10:53 Wound Center Nurse 1 #14 RIGHT MEDIAL ANKLE -Current Size (cm) - Length 1.2 -Current Size (cm) - Width 0.6 -Current Size (cm) - Depth 0.2 -Total Square Cm 0.72 -Exudate Amt Small -Wound Margin Thickened -Granulation Amt Large (67-100%) -Granulation Quality Pale,[place] -Necrosis Amt Small (1-33%) -Necrotic Tissue Type Adherent Slough -Structure Exposed N/A -Texture (Vangie-wound Skin Appearance) Scarring -Moisture (Vangie-wound Skin Appearance) Dry/Scaly -Color (Vangie-wound Skin Appearance) No Abnormality -Temperature (Vangie-wound Skin No Abnormality Appearance) (Pt Warm) -Tenderness on Palpation (Vangie-wound No Skin Appearance) -Ulcer Cleansing Soap and Water -Foul Odor after Cleansing No -Anesthetic Used 5% Lidocaine Gel #12 LEFT MEDIAL KNEE -Current Size (cm) - Length 4.5 -Current Size (cm) - Width 5.6 -Current Size (cm) - Depth 0.2 -Total Square Cm 25.20 -Exudate Amt Medium -Exudate Type Serosanguineous -Wound Margin Distinct, Outline Attached -Granulation Amt Large (67-100%) -Granulation Quality Red -Necrosis Amt Small (1-33%) -Necrotic Tissue Type Adherent Slough -Texture (Vangie-wound Skin Appearance) Scarring -Moisture (Vangie-wound Skin Appearance) Dry/Scaly -Color (Vangie-wound Skin Appearance) No Abnormality -Temperature (Vangie-wound Skin No Abnormality Appearance) (Pt Warm) -Tenderness on Palpation (Vangie-wound No Skin Appearance) -Ulcer Cleansing Soap and Water -Foul Odor after Cleansing No -Anesthetic Used 5% Lidocaine Gel Right Calf (cm) 33.1 Right Ankle (cm) 23.6 Left Calf (cm) 33 Left Ankle (cm) 22 - Nurse 2 - General Ulcer CM Notes Start: 03/31/23 10:53 Freq: Status: Active Protocol: Activity Type Activity Date Activity User E-sign Co-sign Detail Recorded Client Recorded Date Recorded By Document 03/31/23 11:10 JAVIER [id number] 03/31/23 11:25 JAVIER 03/31/23 11:10 Wound Center Nurse 2 #14 RIGHT MEDIAL ANKLE -Time 11:17 -Correct Patient Yes -Correct Side, Site, Position Yes -Correct Procedure Yes -Procedure Performed Yes -Type of Procedure Debridement -Clinical Debridement Subcutaneous -Tissue Removed Subcutaneous -Post Debridement (cm) - Length 1.5 -Post Debridement (cm) - Width 1.8 -Post Debridement (cm) - Depth 0.1 -Total Square (Post) (cm) 2.70 -Area of Debridement (cm) - Length 1.5 -Area of Debridement (cm) - Width 1.8 -Total Square (Area) (cm) 2.70 -Tunneling No -Undermining/Tunneling No -Circular Undermining No -Wound/Ulcer Outcome Not Healed -Ulcer Cleansing Rinsed/ Irrigated with Saline -Foul Odor after Cleansing No -Bioengineered Tissue No -Bleeding Controlled with Pressure -Treatment Response Procedure Tolerated Well -Offloading No -Debridement - Subq, 1st 20sq cm No #12 LEFT MEDIAL KNEE -Time 11:18 -Correct Patient Yes -Correct Side, Site, Position Yes -Correct Procedure Yes -Procedure Performed Yes -Type of Procedure Debridement -Clinical Debridement Subcutaneous -Tissue Removed Subcutaneous -Post Debridement (cm) - Length 5.2 -Post Debridement (cm) - Width 6.0 -Post Debridement (cm) - Depth 0.2 -Total Square (Post) (cm) 31.20 -Area of Debridement (cm) - Length 5.2 -Area of Debridement (cm) - Width 6.0 -Total Square (Area) (cm) 31.20 -Tunneling No -Undermining/Tunneling No -Circular Undermining No -Wound/Ulcer Outcome Not Healed -Ulcer Cleansing Rinsed/ Irrigated with Saline -Foul Odor after Cleansing No -Bioengineered Tissue No -Bleeding Controlled with Pressure -Treatment Response Procedure Tolerated Well -Offloading No -Debridement - Subq, 1st 20sq cm Yes -Debridement, SubQ, ea addt'l 20sq cm 1 or part thereof Pain Scale: 0-10 Numeric Is Patient Pain Free? Yes WC - Nurse 3 - General Ulcer D/C NN Start: 03/31/23 10:53 Freq: Status: Active Protocol: Activity Type Activity Date Activity User E-sign Co-sign Detail Recorded Client Recorded Date Recorded By Document 03/31/23 11:43 DL [id number] 03/31/23 11:44 DL 03/31/23 11:43 Wound Care Center Nurse 3 #14 RIGHT MEDIAL ANKLE -Ulcer Cleansing Rinsed/ Irrigated with Saline -Foul Odor after Cleansing No -Primary Dressing Applied Aquacel AG 4x4 -Primary Dressing Covered/Secured with Dry Gauze & Roll Gauze, Secured with Tape -Aquacel AG 4x4 1 #12 LEFT MEDIAL KNEE -Ulcer Cleansing Rinsed/ Irrigated with Saline -Foul Odor after Cleansing No -Other Dressing aquacel ag -Primary Dressing Covered/Secured with Dry Gauze, Secured with Tape gume -Tubular Bandage Double Layer -Size of Tubigrip Used Size D -Size D ($) 2 Treatment Response Procedure Tolerated Well Pain Scale: 0-10 Numeric Is Patient Pain Free? Yes WC - Visit Discharge Discharge Condition Stable Ambulatory Status Ambulatory, Wheelchair Transportation Private [facility] Facility Type Home Health Orders Sent Yes Additional Wound Wound debrided: #12 Medial knee ulcer Laterality: Left Type of Debridement: Excisional debridement Anesthesia Used: 4% Lidocaine Solution and 5% Lidocaine Gel Depth: Down to and including healthy tissue and in the subcutaneous layer Percentage of wound debrided: 100 Instrument Used: 7mm curette Tissue Removed: Devitalized tissue and slough Severity: Fat Layer Exposed Amount of bleeding with debridement: Mild Bleeding Controlled with: Pressure and Compression and gauze Patient tolerated procedure: Patient tolerated procedure well Assessment/Plan Assessment/Plan (1) Skin ulcer of left knee with fat layer exposed: CODE(S): L97.822 - Non-pressure chronic ulcer of other part of left lower leg with fat layer exposed (2) Chronic ulcer of right ankle: CODE(S): L97.319 - Non-pressure chronic ulcer of right ankle with unspecified severity QUALIFIERS: Non-pressure ulcer stage: with fat layer exposed Qualified Code(s): L97.312 - Non-pressure chronic ulcer of right ankle with fat layer exposed (3) Neoplasm of skin of lower leg: CODE(S): D49.2 - Neoplasm of unspecified behavior of bone, soft tissue, and skin (4) Actinic keratoses: CODE(S): L57.0 - Actinic keratosis (5) 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 (6) Other complications of skin graft (allograft) (autograft): CODE(S): T86.828 - Other complications of skin graft (allograft) (autograft) (7) Squamous cell carcinoma of left lower leg: CODE(S): C44.729 - Squamous cell carcinoma of skin of left lower limb, including hip (8) Neoplasm of skin of lower leg: CODE(S): D49.2 - Neoplasm of unspecified behavior of bone, soft tissue, and skin (9) Rheumatoid arthritis: CODE(S): M06.9 - Rheumatoid arthritis, unspecified (10) Former smoker: CODE(S): Z87.891 - Personal history of nicotine dependence PLAN: Plan Patient evaluated at the wound healing center. Wound care to her right medial ankle and the left medial knee skin flap, she will place Aquacel-Ag covered with gauze daily after washing with soap and water. She was approved for [place] but she has decided to have an auto skin graft to help her heal faster so she she can qualify for radiation therapy. She would like it be scheduled after her grand daughter's wedding the weekend of April 09 and . Compression will be a double tubigrip bilaterally with LEROY wrap to the left knee. She is encouraged to keep her legs elevated while sitting to help control her edema. Wound culture obtained 03/08/23 and was positive for Escherichia coli and she is being treated with Augmentin. Follow up 2 weeks, due to a her having other appointments next week. Call or come in sooner if develop issues.
[2023-04-12 14:47] VITALS: BP 158/53; PULSE 70; RESP 16; TEMP 35.8
--- NOTE | 2023-04-12 16:48 | PCM.WC.PN ---
History of Present Illness Date of Service: 04/12/23 Chief Complaint: Right medial ankle ulcer and left lateral knee wound History of Wound: 87 year old female is known to me. She has had a couple recent surgeries for excision of squamous cell carcinoma. The right medial ankle skin graft has had some compromise and the left lateral knee skin flap has one edge of compromise. Her care was transferred to the wound center from our office. 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 Surgery on 12/09/22 for excision 1.5 cm cutaneous horn with actinic damage left lateral knee with rhomboid transposition skin flap reconstruction (14.58 cm2) and excision 0.7 cm cutaneous horn with actinic damage and atypia with possible squamous cell carcinoma in situ component dorsum right hand at MP joint index finger with FTSG reconstruction from right volar forearm (7.29 cm2). Surgery on 07/24/22 for excision 6.5 cm nonhealing ulcerated invasive well-differentiated squamous cell carcinoma left anteromedial leg with STSG reconstruction from the lower anterior abdominal wall (63 cm2) and excision 2 cm squamous cell carcinoma right medial leg with STSG reconstruction from the lower anterior abdominal wall (16 cm2) and excision 2.5 cm squamous cell carcinoma right medial ankle with STSG reconstruction from the lower anterior abdominal wall (24.75 cm2). Pathology from 12/09/22 of the left lateral knee biopsy showed superficially invasive well differentiated squamous cell carcinoma, actinic keratosis and mild to moderate atypia, and solar elastosis. Margins negative for carcinoma. the dorsum right hand lesion at MP joint index finger showed superficially invasive well differentiated squamous cell carcinoma, keratoacanthomatous type. Actinic keratosis with mild to moderate atypia and solar elastosis. The margins were negative for carcinoma. Pathology from 07/24/22 showed the right medial leg lesion was an invasive well-differentiated squamous cell carcinoma, with clear margins. The right medial ankle lesion was an invasive well-differentiated squamous cell carcinoma, with clear margins. The left anteromedial leg lesion was an invasive well-differentiated squamous cell carcinoma with associated ulceration. The depth of invasion was 4.5 mm. The anatomic level was V (carcinoma invades subcutaneous tissue). No lymphovascular invasion. No perineural invasion. A wound culture was obtained from the right medial leg skin graft on 08/20/22 which was positive for Proteus mirabilis, MRSA, and Enterococcus faecalis. She was started on Levaquin and Linezolid, but those were held because of her diarrhea. After the diarrhea resolved, she restarted the Linezolid, but she did not tolerating it due to the diarrhea and nausea she was experiencing so it was stopped. She was able to complete the Levaquin. Wound culture obtained on 11/19/22 of a red, inflamed blister on her left lateral foot which was positive for Staphylococcus aureus and she was treated with Doxycycline. Wound culture obtained 03/08/23 and was positive for Escherichia coli and she is being treated with Augmentin. Her PET scan has been done. She met with Oncologist and her will follow up with him is in 6 months. She met with Radiation Oncologist to discuss radiation therapy and they are recommending radiation therapy. She would start the radiation therapy after her skin graft areas are healed. Her PET scan is normal, so she would have benefited from local control with Radiation Therapy. I spoke with Dr. Rodriguez's office in mid November and he stated she is out of the window for radiation for her left leg. This was explained to the patient. Ultrasound of left leg was ordered on 12/24/22 and was negative for DVT. Her swelling is slowly resolving. Today she states she feels well and denies fever, chills, nausea and vomiting. Progress of Wound: Right medial ankle ulcer is stable. She has had difficulties with the recent skin flap left medial knee after excision of ulcerated invasive squamous cell carcinoma on 02/15/23.? She now has a non healing ulcer on her left medial knee. She has met with Dr. Rodriguez, Radiation Oncologist, and she has decided to have radiation so it has been decided to skin graft her to give her the best opportunity of healing the quickest way possible so she doesn't miss her window to have radiation. Since her surgery has yet to be scheduled due to Dr. Bergman being out of town, and she has been approved for an advanced wound healing product, we will start Theraskin #1 to her left medial knee. Objective Data Objective Data Vital Signs: Vital Signs Temp Pulse Resp BP O2 Del Method 96.5 F L 70 16 158/53 H Room Air 04/12/23 14:47 04/12/23 14:47 04/12/23 14:47 04/12/23 14:47 04/12/23 14:47 Oxygen Delivery Method Room Air Charges/Coding Procedures Integumentary 150xxx-152xx: 83684 Skin sub graft trnk/arm/leg (left medial knee) Multi Select Codes Integumentary Integumentary CPT Codes: 08971 Lina subq tissue 20 sq cm/< (right medial ankle) Debridement Note Debridement Note Wound debrided: #14 medial ankle ulcer Laterality: Right Type of Debridement: Excisional debridement Anesthesia Used: 4% Lidocaine Solution and 5% Lidocaine Gel Depth: Down to and including healthy tissue and in the subcutaneous layer Percentage of wound debrided: 100 Instrument Used: 3mm curette Tissue Removed: Devitalized tissue and slough Severity: Limited To Skin Breakdown Amount of bleeding with debridement: Mild Bleeding Controlled with: Pressure and Compression and gauze Patient tolerated procedure: Patient tolerated procedure well Post-Debridement Measurements and Additional Note: Post-Debridement Measurements/Treatment - Nurse 1 - General Ulcer Assessment Start: 03/31/23 10:53 Freq: Status: Active Protocol: ALEX Activity Type Activity Date Activity User E-sign Co-sign Detail Recorded Client Recorded Date Recorded By Document 03/31/23 10:53 DL [id number] 03/31/23 10:55 DL Document 04/12/23 14:47 [facility] Desktop 04/12/23 15:00 [facility] 03/31/23 04/12/23 10:53 14:47 - Today's Visit Information Type of service Follow-up Visit Follow-up Visit (Physician/TUBE CUTTER OPERATOR (Physician/TUBE CUTTER OPERATOR ) ) Arrival Mode Ambulatory, Ambulatory, Wheelchair Walker Transfer Assistance None None Accompanied by CAREGIVER Patient Identification Verified (Name & Yes Yes ) Patient Requires Transmission-Based No No Precautions Vital Signs Temperature (97.8 F-99.1 F) 97.6 F L 96.5 F L Temperature Source Temporal Temporal Pulse Rate (60-100) 70 Pulse Location Monitor Respiratory Rate (12-18) 20 H 16 Respiratory rate source Observation Observation Oxygen Delivery Method Room Air Blood Pressure (90/60-120/80) 158/53 H Blood Pressure Mean (mm Hg) 88 Source Monitor Position Sitting Blood Pressure Location Left Arm History Since Last Visit- (Skip if this is Patient's initial visit) Have you changed medications since your No No last visit? Any new allergies or adverse reactions No No Had a fall/change in ADL's that may No No increase risk of falls Signs or symptoms of abuse and/or No No neglect since last visit Have you been in the hospital since your No No last visit? Has dressing in place as prescribed Yes Yes Has compression in place as prescribed Yes Yes Has offloadiing in place as prescribed N/A N/A Experienced any changes in pain level or No No management Left Footwear Regular Shoe Right Footwear Regular Shoe Pain Scale: 0-10 Numeric Is Patient Pain Free? Yes Yes WC - Nurse 1 - General Ulcer Measurement Start: 03/31/23 10:53 Freq: Status: Active Protocol: Activity Type Activity Date Activity User E-sign Co-sign Detail Recorded Client Recorded Date Recorded By Document 03/31/23 10:53 DL [id number] 03/31/23 10:55 DL Document 04/12/23 14:47 [facility] Desktop 04/12/23 15:00 [facility] 03/31/23 04/12/23 10:53 14:47 Wound Center Nurse 1 #14 RIGHT MEDIAL ANKLE -Combined with other wound No -Current Size (cm) - Length 1.2 1.8 -Current Size (cm) - Width 0.6 0.8 -Current Size (cm) - Depth 0.2 0.3 -Total Square Cm 0.72 1.44 -Date of Last Picture (Recall this 04/12/23 field) -Photo Taken Yes -Epithelialization Small 1-33% -Tunneling No -Undermining/Tunneling No -Circular Undermining No -Exudate Amt Small Medium -Exudate Type Serosanguineous -Wound Margin Thickened Distinct, Outline Attached -Granulation Amt Large (67-100%) Large (67-100%) -Granulation Quality Pale,[place] Red -Slough/Fibrin Yes -Necrosis Amt Small (1-33%) Small (1-33%) -Necrotic Tissue Type Adherent Slough Adherent Slough -Structure Exposed N/A -Texture (Vangie-wound Skin Appearance) Scarring Assessed,Callus ,Scarring -Moisture (Vangie-wound Skin Appearance) Dry/Scaly Assessed,Dry/ Scaly -Color (Vangie-wound Skin Appearance) No Abnormality Assessed, Hemosiderin Staining -Temperature (Vangie-wound Skin No Abnormality No Abnormality Appearance) (Pt Warm) (Pt Warm) -Tenderness on Palpation (Vangie-wound No No Skin Appearance) -Ulcer Cleansing Soap and Water Rinsed/ Irrigated with Saline -Foul Odor after Cleansing No No -Anesthetic Used 5% Lidocaine 5% Lidocaine Gel Gel #12 LEFT MEDIAL KNEE -Combined with other wound No -Current Size (cm) - Length 4.5 3.5 -Current Size (cm) - Width 5.6 5 -Current Size (cm) - Depth 0.2 0.2 -Total Square Cm 25.20 17.5 -Date of Last Picture (Recall this 04/12/23 field) -Photo Taken Yes -Epithelialization Small 1-33% -Tunneling No -Undermining/Tunneling No -Circular Undermining No -Exudate Amt Medium Medium -Exudate Type Serosanguineous Serosanguineous -Wound Margin Distinct, Distinct, Outline Outline Attached Attached -Granulation Amt Large (67-100%) Large (67-100%) -Granulation Quality Red Red -Slough/Fibrin Yes -Necrosis Amt Small (1-33%) Small (1-33%) -Necrotic Tissue Type Adherent Slough Adherent Slough -Texture (Vangie-wound Skin Appearance) Scarring Assessed, Scarring -Moisture (Vangie-wound Skin Appearance) Dry/Scaly Assessed,Dry/ Scaly -Color (Vangie-wound Skin Appearance) No Abnormality Assessed -Temperature (Vangie-wound Skin No Abnormality No Abnormality Appearance) (Pt Warm) (Pt Warm) -Tenderness on Palpation (Vangie-wound No No Skin Appearance) -Ulcer Cleansing Soap and Water Rinsed/ Irrigated with Saline -Foul Odor after Cleansing No No -Anesthetic Used 5% Lidocaine 5% Lidocaine Gel Gel Right Calf (cm) 33.1 Right Ankle (cm) 23.6 Left Calf (cm) 33 Left Ankle (cm) 22 WC - Nurse 2 - General Ulcer CM Notes Start: 03/31/23 10:53 Freq: Status: Active Protocol: Activity Type Activity Date Activity User E-sign Co-sign Detail Recorded Client Recorded Date Recorded By Document 03/31/23 11:10 JAVIER [id number] 03/31/23 11:25 JAVIER Document 04/12/23 15:11 [facility] Desktop 04/12/23 15:22 JAVIER 03/31/23 04/12/23 11:10 15:11 Wound Center Nurse 2 #14 RIGHT MEDIAL ANKLE -Time 11:17 15:11 -Correct Patient Yes Yes -Correct Side, Site, Position Yes Yes -Correct Procedure Yes Yes -Procedure Performed Yes Yes -Type of Procedure Debridement Debridement -Clinical Debridement Subcutaneous Subcutaneous -Tissue Removed Subcutaneous Subcutaneous -Post Debridement (cm) - Length 1.5 2.2 -Post Debridement (cm) - Width 1.8 1.3 -Post Debridement (cm) - Depth 0.1 0.1 -Total Square (Post) (cm) 2.70 2.86 -Area of Debridement (cm) - Length 1.5 2.2 -Area of Debridement (cm) - Width 1.8 1.3 -Total Square (Area) (cm) 2.70 2.86 -Tunneling No No -Undermining/Tunneling No No -Circular Undermining No No -Wound/Ulcer Outcome Not Healed Not Healed -Ulcer Cleansing Rinsed/ Rinsed/ Irrigated with Irrigated with Saline Saline -Foul Odor after Cleansing No No -Bioengineered Tissue No No -Bleeding Controlled with Pressure Pressure -Treatment Response Procedure Procedure Tolerated Well Tolerated Well -Offloading No No -Debridement - Subq, 1st 20sq cm No Yes #12 LEFT MEDIAL KNEE -Time 11:18 15:13 -Correct Patient Yes Yes -Correct Side, Site, Position Yes Yes -Correct Procedure Yes Yes -Procedure Performed Yes Yes -Type of Procedure Debridement Debridement -Clinical Debridement Subcutaneous Subcutaneous -Tissue Removed Subcutaneous Subcutaneous -Post Debridement (cm) - Length 5.2 3.2 -Post Debridement (cm) - Width 6.0 5.4 -Post Debridement (cm) - Depth 0.2 0.1 -Total Square (Post) (cm) 31.20 17.28 -Area of Debridement (cm) - Length 5.2 3.2 -Area of Debridement (cm) - Width 6.0 5.4 -Total Square (Area) (cm) 31.20 17.28 -Tunneling No No -Undermining/Tunneling No No -Circular Undermining No No -Wound/Ulcer Outcome Not Healed Not Healed -Ulcer Cleansing Rinsed/ Rinsed/ Irrigated with Irrigated with Saline Saline -Foul Odor after Cleansing No No -Bioengineered Tissue No Yes -Type of Bioengineered Tissue Theraskin -Expiration Date 12/18/27 -Product Lot Number [id number] -Percent Used 100 -Lot number of Saline Used [id number] -Bleeding Controlled with Pressure Pressure -Treatment Response Procedure Procedure Tolerated Well Tolerated Well -Offloading No No -Debridement - Subq, 1st 20sq cm Yes No -Debridement, SubQ, ea addt'l 20sq cm 1 or part thereof -Apply Skin Sub - 1st 25 sq cm - Legs 1 -Theraskin (per sq cm) 6 Pain Scale: 0-10 Numeric Is Patient Pain Free? Yes Yes - Nurse 3 - General Ulcer D/C NN Start: 03/31/23 10:53 Freq: Status: Active Protocol: Activity Type Activity Date Activity User E-sign Co-sign Detail Recorded Client Recorded Date Recorded By Document 03/31/23 11:43 DL [id number] 03/31/23 11:44 DL Document 04/12/23 15:22 Desktop 04/12/23 15:24 03/31/23 04/12/23 11:43 15:22 Wound Care Center Nurse 3 #14 RIGHT MEDIAL ANKLE -Ulcer Cleansing Rinsed/ Rinsed/ Irrigated with Irrigated with Saline Saline -Foul Odor after Cleansing No No -Primary Dressing Applied Aquacel AG 4x4 Aquacel AG 2x2, Mepilex Border -Primary Dressing Covered/Secured with Dry Gauze & Roll Gauze, Secured with Tape -Aquacel AG 2x2 1 -Aquacel AG 4x4 1 -Mepilex Border 1 #12 LEFT MEDIAL KNEE -Ulcer Cleansing Rinsed/ Rinsed/ Irrigated with Irrigated with Saline Saline -Foul Odor after Cleansing No -Negative Pressure Wound Therapy Discontinue -Primary Dressing Applied Mepilex Border -Other Dressing aquacel ag -Primary Dressing Covered/Secured with Dry Gauze, Secured with Tape -Mepilex Border 1 gume -Tubular Bandage Double Layer -Size of Tubigrip Used Size D -Size D ($) 2 Treatment Response Procedure Tolerated Well Pain Scale: 0-10 Numeric Is Patient Pain Free? Yes Yes - Visit Discharge Discharge Condition Stable Stable Ambulatory Status Ambulatory, Ambulatory, Wheelchair Walker Transportation Private Auto Private Auto Accompanied by friend Medication Reconcilliation completed & Yes provided to patient/care provider Clinical Summary of Care Provided Yes Facility Type Home Health Orders Sent Yes Additional Wound Wound debrided: #12 Medial knee ulcer Laterality: Left Type of Debridement: Excisional debridement Anesthesia Used: 4% Lidocaine Solution and 5% Lidocaine Gel Depth: Down to and including healthy tissue and in the subcutaneous layer Percentage of wound debrided: 100 Instrument Used: 5mm curette Tissue Removed: Devitalized tissue and slough Severity: Fat Layer Exposed Amount of bleeding with debridement: Mild Bleeding Controlled with: Pressure and Compression and gauze Patient tolerated procedure: Patient tolerated procedure well Assessment/Plan Assessment/Plan (1) Skin ulcer of left knee with fat layer exposed: CODE(S): L97.822 - Non-pressure chronic ulcer of other part of left lower leg with fat layer exposed (2) Chronic ulcer of right ankle: CODE(S): L97.319 - Non-pressure chronic ulcer of right ankle with unspecified severity QUALIFIERS: Non-pressure ulcer stage: with fat layer exposed Qualified Code(s): L97.312 - Non-pressure chronic ulcer of right ankle with fat layer exposed (3) Neoplasm of skin of lower leg: CODE(S): D49.2 - Neoplasm of unspecified behavior of bone, soft tissue, and skin (4) Actinic keratoses: CODE(S): L57.0 - Actinic keratosis (5) 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 (6) Other complications of skin graft (allograft) (autograft): CODE(S): T86.828 - Other complications of skin graft (allograft) (autograft) (7) Squamous cell carcinoma of left lower leg: CODE(S): C44.729 - Squamous cell carcinoma of skin of left lower limb, including hip (8) Neoplasm of skin of lower leg: CODE(S): D49.2 - Neoplasm of unspecified behavior of bone, soft tissue, and skin (9) Rheumatoid arthritis: CODE(S): M06.9 - Rheumatoid arthritis, unspecified (10) Former smoker: CODE(S): Z87.891 - Personal history of nicotine dependence PLAN: Plan Patient evaluated at the wound healing center. Wound care to her right medial ankle will be Aquacel-Ag covered with gauze daily after washing with soap and water. Theraskin #1 placed to left medial knee ulcer. 100% of the product was used. It was secured with Dermabond skin glue and steri strips and topped with wound veil secured with steri strips. Covered with gauze and Mepilex dressing/or ABD as needed. Instructed not to get the Theraskin wet. May change the outer dressing above the wound veil as needed. Hopefully the Theraskin will help make to ulcer smaller so when she has a skin graft done, it will be smaller and will heal faster so she can have the radiation therapy. Compression will be a double tubigrip bilaterally with LEROY wrap to the left knee. She is encouraged to keep her legs elevated while sitting to help control her edema. Wound culture obtained 03/08/23 and was positive for Escherichia coli and she is being treated with Augmentin. Follow up 2 weeks, due to a her having other appointments next week. Call or come in sooner if develop issues.
== END 2023-04-24 23:59 | disposition home or self-care (01) ==
LOC: WC 14:45
PROVIDERS: PCP Family Medicine; Referring Provider Nurse Practitioner Family; Visit Provider Surgery
DX: L97.312 Non-pressure chronic ulcer of right ankle with fat layer exposed (principal); L97.822 Non-pressure chronic ulcer of other part of left lower leg with fat layer exposed; M06.9 Rheumatoid arthritis, unspecified; D49.2 Neoplasm of unspecified behavior of bone, soft tissue, and skin; R19.7 Diarrhea, unspecified; L57.0 Actinic keratosis; C44.722 Squamous cell carcinoma of skin of right lower limb, including hip; C44.621 Squamous cell carcinoma of skin of unspecified upper limb, including shoulder; S81.002A Unspecified open wound, left knee, initial encounter; Z87.891 Personal history of nicotine dependence; T86.828 Other complications of skin graft (allograft) (autograft)
CPT/HCPCS: 11042; 11045; 15271; Q4121

== ENCOUNTER 2023-05-10 14:00 | Outpatient (RCR) | payer MEDICARE, OTHER, SELFPAY ==
[2023-04-25 00:19] VITALS: BP 158/53; PULSE 70; RESP 16; TEMP 35.8
[2023-04-26 14:43] VITALS: BP 157/57; PULSE 84; RESP 18; TEMP 35.3
--- NOTE | 2023-04-26 17:40 | PN.PCM_ITS ---
History of Present Illness Date of Service: 04/26/23 Chief Complaint: Right medial ankle ulcer and left medial knee ulcer History of Wound: tory of Wound: 87 year old female who is already coming to the wound center for a right medial ankle ulcer secondary to some compromise to the healing skin graft has a new wound in the left medial knee area. 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 After surgery, the sutures did not hold and a complete wound separation was noted. Silver dressing changes were started. Also while here, she was evaluated for an advanced skin substitute graft such as Thera-skin. It was approved and she has had her first application of Thera-Skin a couple of weeks ago. Surgery on 12/09/22 for excision 1.5 cm cutaneous horn with actinic damage left lateral knee with rhomboid transposition skin flap reconstruction (14.58 cm2) and excision 0.7 cm cutaneous horn with actinic damage and atypia with possible squamous cell carcinoma in situ component dorsum right hand at MP joint index finger with FTSG reconstruction from right volar forearm (7.29 cm2). Surgery on 07/24/22 for excision 6.5 cm nonhealing ulcerated invasive well- differentiated squamous cell carcinoma left anteromedial leg with STSG reconstruction from the lower anterior abdominal wall (63 cm2) and excision 2 cm squamous cell carcinoma right medial leg with STSG reconstruction from the lower anterior abdominal wall (16 cm2) and excision 2.5 cm squamous cell carcinoma right medial ankle with STSG reconstruction from the lower anterior abdominal wall (24.75 cm2). Pathology from 02/15/23 showed the left medial knee lesion was a well differentiated invasive squamous cell carcinoma (completely excised), solar keratosis and solar elastosis. Dermal chronic inflammation. The tumor measures 2.0 cm in greatest width and up to the depth of 0.5 cm. Perineural or lymph-vascular invasion is not identified. The tumor is 1.2 cm away from the closest 12 to 3 o?clock and 3 to 6 o?clock margin. The deep margin is 0.4 cm away from the tumor. Pathology from 12/09/22 of the left lateral knee biopsy showed superficially inv asive well differentiated squamous cell carcinoma, actinic keratosis and mild to moderate atypia, and solar elastosis. Margins negative for carcinoma. the dorsum right hand lesion at MP joint index finger showed superficially invasive well differentiated squamous cell carcinoma, keratoacanthomatous type. Actinic keratosis with mild to moderate atypia and solar elastosis. The margins were negative for carcinoma. Pathology from 07/24/22 showed the right medial leg lesion was an invasive well- differentiated squamous cell carcinoma, with clear margins. The right medial ankle lesion was an invasive well-differentiated squamous cell carcinoma, with clear margins. The left anteromedial leg lesion was an invasive well-differentiated squamous cell carcinoma with associated ulceration. The depth of invasion was 4.5 mm. The anatomic level was V (carcinoma invades subcutaneous tissue). No lymphovascular invasion. No perineural invasion. Wound Culture from 03/08/23 (left medial knee) showed E. coli. She was started on Augmentin. Wound care - We started Thera-Skin advanced skin substitute graft. She has had one placement. Today she states she feels well and denies fever, chills, nausea and vomiting. Progress of Wound: Wound separation left medial knee after surgery 02/15/23. Minimal improvement in the right medial ankle ulcer. Objective Data Objective Data Vital Signs: Vital Signs Temp Pulse Resp BP 95.6 F L 84 18 157/57 H 04/26/23 14:43 04/26/23 14:43 04/26/23 14:43 04/26/23 14:43 Prealbumin from 07/25/22 was 15.8. Encourage nutritional supplementation with protein to help the healing process. Lab / Micro Data Attestation: I reviewed the patient's lab results. Charges/Coding Procedures Integumentary 111xxx-113xx: [id number] Lian subq tissue 20 sq cm/< (Modifier 79 right medial ankle - ICD-10 - L97.319, T86.828, C44.729, L57.0, Z94.5, Z86.14, Z85.828, Z87.891, L97.822, L08.9) 150xxx-152xx: [id number] Skin sub graft trnk/arm/leg (Modifier 58 left medial knee ICD-10 - L97.822, L08.9, T86.828, C44.729, L57.0, Z94.5, Z86.14, Z85.828, Z87.891, L97.319) Physical Exam Narrative On the left anterior thigh is an erythematous lesion that measures 5 mm. It is flat. Has irregular borders. No ulceration. Lesion is nontender. Clinically looks actinic. On the dorsal aspect mid left forearm is an erythematous lesion that measures 6 mm. It is flat. Has irregular borders. No ulceration. Lesion is nontender. Clinically looks actinic. Debridement Note Debridement Note Wound debrided: #14 medial ankle ulcer Laterality: Right Type of Debridement: Excisional debridement Anesthesia Used: 4% Lidocaine Solution and 5% Lidocaine Gel Depth: Down to and including healthy tissue and in the subcutaneous layer Percentage of wound debrided: 100 Instrument Used: 3mm curette Tissue Removed: Devitalized tissue and slough Severity: Fat Layer Exposed Amount of bleeding with debridement: Mild Bleeding Controlled with: Pressure and Compression and gauze Patient tolerated procedure: Patient tolerated procedure well Post-Debridement Measurements and Additional Note: Post-Debridement Measurements/Treatment - Nurse 1 - General Ulcer Assessment Start: 04/26/23 14:43 Freq: Status: Active Protocol: ALEX Activity Type Activity Date Activity User E-sign Co-sign Detail Recorded Client Recorded Date Recorded By Document 04/26/23 14:43 PL [id number] 04/26/23 14:44 PL 04/26/23 14:43 - Today's Visit Information Type of service Follow-up Visit (Physician/HEMMER LOCKSTITCH ) Arrival Mode Ambulatory, Walker Transfer Assistance None Patient Identification Verified (Name & Yes ) Patient Requires Transmission-Based No Precautions Safety Precautions NA Vital Signs Temperature (97.8 F-99.1 F) 95.6 F L Temperature Source Temporal Pulse Rate (60-100) 84 Respiratory Rate (12-18) 18 Blood Pressure (90/60-120/80) 157/57 H Blood Pressure Mean (mm Hg) 90 History Since Last Visit- (Skip if this is Patient's initial visit) Have you changed medications since your No last visit? Any new allergies or adverse reactions No Had a fall/change in ADL's that may No increase risk of falls Signs or symptoms of abuse and/or No neglect since last visit Have you been in the hospital since your No last visit? Has dressing in place as prescribed No Has compression in place as prescribed Yes Experienced any changes in pain level or No management Pain Scale: 0-10 Numeric Is Patient Pain Free? Yes WC - Nurse 2 - General Ulcer CM Notes Start: 04/26/23 14:43 Freq: Status: Active Protocol: Activity Type Activity Date Activity User E-sign Co-sign Detail Recorded Client Recorded Date Recorded By Document 04/26/23 15:08 Laptop 04/26/23 15:17 04/26/23 15:08 Wound Center Nurse 2 #14 RIGHT MEDIAL ANKLE -Time 15:14 -Correct Patient Yes -Correct Side, Site, Position Yes -Correct Procedure Yes -Procedure Performed Yes -Type of Procedure Debridement -Clinical Debridement Subcutaneous -Tissue Removed Subcutaneous -Post Debridement (cm) - Length 2.3 -Post Debridement (cm) - Width 1.1 -Post Debridement (cm) - Depth 0.2 -Total Square (Post) (cm) 2.53 -Area of Debridement (cm) - Length 2.3 -Area of Debridement (cm) - Width 1.1 -Total Square (Area) (cm) 2.53 -Tunneling No -Undermining/Tunneling No -Circular Undermining No -Wound/Ulcer Outcome Not Healed -Ulcer Cleansing Rinsed/ Irrigated with Saline -Foul Odor after Cleansing No -Bioengineered Tissue No -Bleeding Controlled with Pressure -Treatment Response Procedure Tolerated Well -Offloading No -Debridement - Subq, 1st 20sq cm Yes #12 LEFT MEDIAL KNEE -Time 15:15 -Correct Patient Yes -Correct Side, Site, Position Yes -Correct Procedure Yes -Procedure Performed Yes -Type of Procedure Debridement -Clinical Debridement Subcutaneous -Tissue Removed Subcutaneous -Post Debridement (cm) - Length 2.5 -Post Debridement (cm) - Width 2.7 -Post Debridement (cm) - Depth 0.1 -Total Square (Post) (cm) 6.75 -Area of Debridement (cm) - Length 2.5 -Area of Debridement (cm) - Width 2.7 -Total Square (Area) (cm) 6.75 -Tunneling No -Undermining/Tunneling No -Circular Undermining No -Wound/Ulcer Outcome Not Healed -Ulcer Cleansing Rinsed/ Irrigated with Saline -Foul Odor after Cleansing No -Bioengineered Tissue Yes -Type of Bioengineered Tissue Theraskin -Expiration Date 12/18/27 -Product Lot Number [id number] -Percent Used 100 -Lot number of Saline Used [id number] -Bleeding Controlled with Pressure -Treatment Response Procedure Tolerated Well -Offloading No -Debridement - Subq, 1st 20sq cm No -Apply Skin Sub - 1st 25 sq cm - Legs 1 -Theraskin (per sq cm) 6 Pain Scale: 0-10 Numeric Is Patient Pain Free? Yes - Nurse 3 - General Ulcer D/C NN Start: 04/26/23 14:43 Freq: Status: Active Protocol: Activity Type Activity Date Activity User E-sign Co-sign Detail Recorded Client Recorded Date Recorded By Document 04/26/23 15:24 Laptop 04/26/23 15:24 04/26/23 15:24 Wound Care Center Nurse 3 #14 RIGHT MEDIAL ANKLE -Ulcer Cleansing Rinsed/ Irrigated with Saline -Foul Odor after Cleansing No -Primary Dressing Applied Mepilex Border -Primary Dressing Covered/Secured with Dry Gauze -Mepilex Border 1 #12 LEFT MEDIAL KNEE -Ulcer Cleansing Rinsed/ Irrigated with Saline -Foul Odor after Cleansing No -Primary Dressing Applied Mepilex Border -Primary Dressing Covered/Secured with Dry Gauze -Mepilex Border 1 Pain Scale: 0-10 Numeric Is Patient Pain Free? Yes - Visit Discharge Discharge Condition Stable Ambulatory Status Ambulatory, Walker Transportation Private Auto Medication Reconcilliation completed & Yes provided to patient/care provider Clinical Summary of Care Provided Yes Additional Wound Wound debrided: #12 Medial knee ulcer Laterality: Left Type of Debridement: Excisional debridement Anesthesia Used: 4% Lidocaine Solution and 5% Lidocaine Gel Depth: Down to and including healthy tissue and in the subcutaneous layer Percentage of wound debrided: 100 Instrument Used: 5mm curette Tissue Removed: Devitalized tissue and slough Severity: Fat Layer Exposed Amount of bleeding with debridement: Mild Bleeding Controlled with: Pressure and Compression and gauze Patient tolerated procedure: Patient tolerated procedure well Assessment/Plan Assessment/Plan (1) Non-pressure chronic ulcer of other part of left lower leg with fat layer exposed: CODE(S): L97.822 - Non-pressure chronic ulcer of other part of left lower leg with fat layer exposed (2) Chronic ulcer of right ankle: CODE(S): L97.319 - Non-pressure chronic ulcer of right ankle with unspecified severity QUALIFIERS: Non-pressure ulcer stage: with fat layer exposed Qualified Code(s): L97.312 - Non-pressure chronic ulcer of right ankle with fat layer exposed (3) Other complications of skin graft (allograft) (autograft): CODE(S): T86.828 - Other complications of skin graft (allograft) (autograft) (4) Squamous cell carcinoma of skin of left lower extremity: CODE(S): C44.729 - Squamous cell carcinoma of skin of left lower limb, including hip (5) 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 (6) History of MRSA infection: CODE(S): Z86.14 - Personal history of Methicillin resistant Staphylococcus aureus infection (7) Personal history of skin cancer: CODE(S): Z85.828 - Personal history of other malignant neoplasm of skin (8) Former smoker: CODE(S): Z87.891 - Personal history of nicotine dependence (9) Actinic keratosis: CODE(S): L57.0 - Actinic keratosis (10) Skin infection of left knee: CODE(S): L08.9 - Local infection of the skin and subcutaneous tissue, unspecified PLAN: Plan She has started Thera-Skin advanced substitute graft. Had her first placement couple of weeks ago. Will have another Thera-Skin placed today to the left medial knee ulcer and right medial ankle ulcer. Continue compression with double tubigrip. She is encouraged to keep her legs elevated while sitting to help control her edema. Wound culture from 03/08/23 showed E. coli. She was started on Augmentin. Had Thera-Skin placement #2 today. Lot Number - [id number]. Percent Used - 100%. Lot Number for Saline - [id number]. Amount Used - 6 cm2. Expiration - December 18, 2027. Encourage nutritional supplementation with protein to help the healing process. Her Prealbumin from 07/25/22 was 15.8. Followup 2 weeks for another Thera-Skin application. She has two erythematous lesions on her left anterior thigh and dorsal aspect mid left forearm. She will apply Aldara to these actinic lesions. Will evaluate them in 2 months. Will apply the Aldara daily at night and wipe off excess in the morning. Do this 5 days per week for 6 weeks. She was seen by the Radiation Oncologist on 04/23/23. He recommends radiation therapy after the ulcer has healed. If the Thera-Skin does not heal the ulcer completely, she is scheduled for an autograft in the [place] on 05/27/23.
[2023-05-10 13:49] VITALS: BP 150/54; PULSE 76; RESP 20; TEMP 36.3
--- NOTE | 2023-05-10 15:49 | PCM.WC.PN ---
History of Present Illness Date of Service: 05/10/23 Chief Complaint: Right medial ankle ulcer and left medial knee ulcer History of Wound: 87 year old female who is already coming to the wound center for a right medial ankle ulcer secondary to some compromise to the healing skin graft has a new wound in the left medial knee area. 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 After surgery, the sutures did not hold and a complete wound separation was noted. Silver dressing changes were started. Also while here, she was evaluated for an advanced skin substitute graft such as Thera-skin. It was approved and she has had her first application of Thera-Skin a couple of weeks ago. Surgery on 12/09/22 for excision 1.5 cm cutaneous horn with actinic damage left lateral knee with rhomboid transposition skin flap reconstruction (14.58 cm2) and excision 0.7 cm cutaneous horn with actinic damage and atypia with possible squamous cell carcinoma in situ component dorsum right hand at MP joint index finger with FTSG reconstruction from right volar forearm (7.29 cm2). Surgery on 07/24/22 for excision 6.5 cm nonhealing ulcerated invasive well-differentiated squamous cell carcinoma left anteromedial leg with STSG reconstruction from the lower anterior abdominal wall (63 cm2) and excision 2 cm squamous cell carcinoma right medial leg with STSG reconstruction from the lower anterior abdominal wall (16 cm2) and excision 2.5 cm squamous cell carcinoma right medial ankle with STSG reconstruction from the lower anterior abdominal wall (24.75 cm2). Pathology from 02/15/23 showed the left medial knee lesion was a well differentiated invasive squamous cell carcinoma (completely excised), solar keratosis and solar elastosis. Dermal chronic inflammation. The tumor measures 2.0 cm in greatest width and up to the depth of 0.5 cm. Perineural or lymph-vascular invasion is not identified. The tumor is 1.2 cm away from the closest 12 to 3 o?clock and 3 to 6 o?clock margin. The deep margin is 0.4 cm away from the tumor. Pathology from 12/09/22 of the left lateral knee biopsy showed superficially invasive well differentiated squamous cell carcinoma, actinic keratosis and mild to moderate atypia, and solar elastosis. Margins negative for carcinoma. the dorsum right hand lesion at MP joint index finger showed superficially invasive well differentiated squamous cell carcinoma, keratoacanthomatous type. Actinic keratosis with mild to moderate atypia and solar elastosis. The margins were negative for carcinoma. Pathology from 07/24/22 showed the right medial leg lesion was an invasive well-differentiated squamous cell carcinoma, with clear margins. The right medial ankle lesion was an invasive well-differentiated squamous cell carcinoma, with clear margins. The left anteromedial leg lesion was an invasive well-differentiated squamous cell carcinoma with associated ulceration. The depth of invasion was 4.5 mm. The anatomic level was V (carcinoma invades subcutaneous tissue). No lymphovascular invasion. No perineural invasion. Wound Culture from 03/08/23 (left medial knee) showed E. coli. She was treated with Augmentin. Wound care - We started Thera-Skin advanced skin substitute graft. She has had 2 placements, the last one on April 26, 2023. The left medial knee ulcer showed well differentiated invasive squamous cell carcinoma with a depth of 0.5 cm. Since she has had several squamous cell carcinomas on her extremities in the past year, the Radiation Oncologist has recommended adjuvant radiation therapy to start after the left medial knee ulcer has healed. Today she states she feels well and denies fever, chills, nausea and vomiting. Progress of Wound: Improvement of the left medial knee ulcer is noted as the dimensions have decreased. Minimal improvement in the right medial ankle ulcer. Objective Data Objective Data Vital Signs: Vital Signs Temp Pulse Resp BP 97.4 F L 76 20 H 150/54 H 05/10/23 13:49 05/10/23 13:49 05/10/23 13:49 05/10/23 13:49 Prealbumin from 07/25/22 was 15.8. Encourage nutritional supplementation with protein to help the healing process. Lab / Micro Data Attestation: I reviewed the patient's lab results. Charges/Coding Procedures Integumentary [id number]: [id number] Lian subq tissue 20 sq cm/< (Modifier 79 right medial ankle - ICD-10 - L97.319, T86.828, C44.729, L57.0, Z94.5, Z86.14, Z85.828, Z87.891, L97.822, L08.9) Debridement Note Debridement Note Wound debrided: #14 medial ankle ulcer Laterality: Right Wound Grade/Stage: 2. Type of Debridement: Excisional debridement Anesthesia Used: 4% Lidocaine Solution and 5% Lidocaine Gel Depth: Down to and including healthy tissue and in the subcutaneous layer Percentage of wound debrided: 100 Instrument Used: 3mm curette Tissue Removed: subcutaneous tissue and devitalized tissue and slough. Severity: Fat Layer Exposed Amount of bleeding with debridement: Mild Bleeding Controlled with: Pressure and Compression and gauze Patient tolerated procedure: Patient tolerated procedure well Post-Debridement Measurements and Additional Note: Post-Debridement Measurements/Treatment - Nurse 1 - General Ulcer Assessment Start: 04/26/23 14:43 Freq: Status: Active Protocol: ALEX Activity Type Activity Date Activity User E-sign Co-sign Detail Recorded Client Recorded Date Recorded By Document 04/26/23 14:43 PL [id number] 04/26/23 14:44 PL Document 05/10/23 13:49 DL Desktop 05/10/23 14:03 DL 04/26/23 05/10/23 14:43 13:49 - Today's Visit Information Type of service Follow-up Visit Follow-up Visit (Physician/CARD SELLER (Physician/CARD SELLER ) ) Arrival Mode Ambulatory, Ambulatory Walker Transfer Assistance None None Patient Identification Verified (Name & Yes Yes ) Patient Requires Transmission-Based No No Precautions Safety Precautions NA Vital Signs Temperature (97.8 F-99.1 F) 95.6 F L 97.4 F L Temperature Source Temporal Temporal Pulse Rate (60-100) 84 76 Pulse Location Monitor Respiratory Rate (12-18) 18 20 H Respiratory rate source Observation Blood Pressure (90/60-120/80) 157/57 H 150/54 H Blood Pressure Mean (mm Hg) 90 86 Source Monitor History Since Last Visit- (Skip if this is Patient's initial visit) Have you changed medications since your No No last visit? Any new allergies or adverse reactions No No Had a fall/change in ADL's that may No No increase risk of falls Signs or symptoms of abuse and/or No No neglect since last visit Have you been in the hospital since your No No last visit? Has dressing in place as prescribed No Yes Has compression in place as prescribed Yes Yes Has offloadiing in place as prescribed N/A Experienced any changes in pain level or No No management Left Footwear Regular Shoe Right Footwear Regular Shoe Pain Scale: 0-10 Numeric Is Patient Pain Free? Yes Yes WC - Nurse 1 - General Ulcer Measurement Start: 04/26/23 14:43 Freq: Status: Active Protocol: Activity Type Activity Date Activity User E-sign Co-sign Detail Recorded Client Recorded Date Recorded By Document 05/10/23 13:49 DL Desktop 05/10/23 14:03 DL 05/10/23 13:49 Wound Center Nurse 1 #14 RIGHT MEDIAL ANKLE -Current Size (cm) - Length 2.5 -Current Size (cm) - Width 0.9 -Current Size (cm) - Depth 0.1 -Total Square Cm 2.25 -Exudate Amt Medium -Exudate Type Serosanguineous -Wound Margin Distinct, Outline Attached -Granulation Amt Medium (34-66%) -Granulation Quality Red -Necrosis Amt Medium (34-66%) -Necrotic Tissue Type Adherent Slough -Structure Exposed N/A -Texture (Vangie-wound Skin Appearance) Scarring -Moisture (Vangie-wound Skin Appearance) Maceration,Dry/ Scaly -Color (Vangie-wound Skin Appearance) Hemosiderin Staining -Temperature (Vangie-wound Skin No Abnormality Appearance) (Pt Warm) -Tenderness on Palpation (Vangie-wound No Skin Appearance) -Ulcer Cleansing Soap and Water -Foul Odor after Cleansing No -Anesthetic Used 5% Lidocaine Gel #12 LEFT MEDIAL KNEE -Current Size (cm) - Length 1.1 -Current Size (cm) - Width 1.8 -Current Size (cm) - Depth 0.1 -Total Square Cm 1.98 -Exudate Amt Medium -Exudate Type Serosanguineous -Wound Margin Distinct, Outline Attached -Granulation Amt Medium (34-66%) -Granulation Quality Red -Necrosis Amt Medium (34-66%) -Necrotic Tissue Type Adherent Slough -Structure Exposed N/A -Texture (Vangie-wound Skin Appearance) Scarring -Moisture (Vangie-wound Skin Appearance) Dry/Scaly -Color (Vangie-wound Skin Appearance) Hemosiderin Staining -Temperature (Vangie-wound Skin No Abnormality Appearance) (Pt Warm) -Tenderness on Palpation (Vangie-wound No Skin Appearance) -Ulcer Cleansing Soap and Water -Foul Odor after Cleansing No -Anesthetic Used 5% Lidocaine Gel Right Calf (cm) 33 Right Ankle (cm) 21.4 Left Calf (cm) 32.5 Left Ankle (cm) 24 WC - Nurse 2 - General Ulcer CM Notes Start: 04/26/23 14:43 Freq: Status: Active Protocol: Activity Type Activity Date Activity User E-sign Co-sign Detail Recorded Client Recorded Date Recorded By Document 04/26/23 15:08 JF Laptop 04/26/23 15:17 Document 05/10/23 14:22 Laptop 05/10/23 14:31 04/26/23 05/10/23 15:08 14:22 Wound Center Nurse 2 #14 RIGHT MEDIAL ANKLE -Time 15:14 14:23 -Correct Patient Yes Yes -Correct Side, Site, Position Yes Yes -Correct Procedure Yes Yes -Procedure Performed Yes Yes -Type of Procedure Debridement Debridement -Clinical Debridement Subcutaneous Subcutaneous -Tissue Removed Subcutaneous Subcutaneous -Post Debridement (cm) - Length 2.3 2.9 -Post Debridement (cm) - Width 1.1 1.4 -Post Debridement (cm) - Depth 0.2 0.2 -Total Square (Post) (cm) 2.53 4.06 -Area of Debridement (cm) - Length 2.3 2.9 -Area of Debridement (cm) - Width 1.1 1.4 -Total Square (Area) (cm) 2.53 4.06 -Tunneling No No -Undermining/Tunneling No No -Circular Undermining No No -Wound/Ulcer Outcome Not Healed Not Healed -Ulcer Cleansing Rinsed/ Rinsed/ Irrigated with Irrigated with Saline Saline -Foul Odor after Cleansing No No -Bioengineered Tissue No No -Bleeding Controlled with Pressure Pressure -Treatment Response Procedure Procedure Tolerated Well Tolerated Well -Offloading No No -Debridement - Subq, 1st 20sq cm Yes No #12 LEFT MEDIAL KNEE -Time 15:15 14:24 -Correct Patient Yes Yes -Correct Side, Site, Position Yes Yes -Correct Procedure Yes Yes -Procedure Performed Yes Yes -Type of Procedure Debridement Debridement -Clinical Debridement Subcutaneous Subcutaneous -Tissue Removed Subcutaneous Subcutaneous -Post Debridement (cm) - Length 2.5 1.5 -Post Debridement (cm) - Width 2.7 2.5 -Post Debridement (cm) - Depth 0.1 0.2 -Total Square (Post) (cm) 6.75 3.75 -Area of Debridement (cm) - Length 2.5 1.5 -Area of Debridement (cm) - Width 2.7 2.5 -Total Square (Area) (cm) 6.75 3.75 -Tunneling No No -Undermining/Tunneling No No -Circular Undermining No No -Wound/Ulcer Outcome Not Healed Not Healed -Ulcer Cleansing Rinsed/ Rinsed/ Irrigated with Irrigated with Saline Saline -Foul Odor after Cleansing No No -Bioengineered Tissue Yes No -Type of Bioengineered Tissue Theraskin -Expiration Date 12/18/27 -Product Lot Number [id number] -Percent Used 100 -Lot number of Saline Used [id number] -Bleeding Controlled with Pressure Pressure -Treatment Response Procedure Procedure Tolerated Well Tolerated Well -Offloading No No -Debridement - Subq, 1st 20sq cm No Yes -Apply Skin Sub - 1st 25 sq cm - Legs 1 -Theraskin (per sq cm) 6 Pain Scale: 0-10 Numeric Is Patient Pain Free? Yes Yes WC - Nurse 3 - General Ulcer D/C NN Start: 04/26/23 14:43 Freq: Status: Active Protocol: Activity Type Activity Date Activity User E-sign Co-sign Detail Recorded Client Recorded Date Recorded By Document 04/26/23 15:24 Laptop 04/26/23 15:24 Document 05/10/23 14:47 [facility] Desktop 05/10/23 14:48 [facility] 04/26/23 05/10/23 15:24 14:47 Wound Care Center Nurse 3 #14 RIGHT MEDIAL ANKLE -Ulcer Cleansing Rinsed/ Rinsed/ Irrigated with Irrigated with Saline Saline -Foul Odor after Cleansing No No -Primary Dressing Applied Mepilex Border Aquacel AG 4x4 -Primary Dressing Covered/Secured with Dry Gauze Dry Gauze & Roll Gauze, Secured with Tape -Aquacel AG 4x4 1 -Mepilex Border 1 #12 LEFT MEDIAL KNEE -Ulcer Cleansing Rinsed/ Rinsed/ Irrigated with Irrigated with Saline Saline -Foul Odor after Cleansing No No -Primary Dressing Applied Mepilex Border Aquacel AG 4x4 -Primary Dressing Covered/Secured with Dry Gauze Dry Gauze & Roll Gauze, Secured with Tape -Aquacel AG 4x4 0 -Mepilex Border 1 ble -Tubular Bandage Double Layer -Size of Tubigrip Used Size D -Size D ($) 2 Treatment Response Procedure Tolerated Well Pain Scale: 0-10 Numeric Is Patient Pain Free? Yes Yes WC - Visit Discharge Discharge Condition Stable Stable Ambulatory Status Ambulatory, Ambulatory, Walker Walker Transportation Private Auto Private Auto Accompanied by caregiver Medication Reconcilliation completed & Yes provided to patient/care provider Clinical Summary of Care Provided Yes Additional Wound Wound debrided: #12 Medial knee ulcer Laterality: Left Wound Grade/Stage: 2. Type of Debridement: Excisional debridement Anesthesia Used: 4% Lidocaine Solution and 5% Lidocaine Gel Depth: Down to and including healthy tissue and in the subcutaneous layer Percentage of wound debrided: 100 Instrument Used: 5mm curette Tissue Removed: Subcutaneous tissue and devitalized tissue and slough. Severity: Fat Layer Exposed Amount of bleeding with debridement: Mild Bleeding Controlled with: Pressure and Compression and gauze Patient tolerated procedure: Patient tolerated procedure well Assessment/Plan Assessment/Plan (1) Non-pressure chronic ulcer of other part of left lower leg with fat layer exposed: CODE(S): L97.822 - Non-pressure chronic ulcer of other part of left lower leg with fat layer exposed (2) Chronic ulcer of right ankle: CODE(S): L97.319 - Non-pressure chronic ulcer of right ankle with unspecified severity QUALIFIERS: Non-pressure ulcer stage: with fat layer exposed Qualified Code(s): L97.312 - Non-pressure chronic ulcer of right ankle with fat layer exposed (3) Other complications of skin graft (allograft) (autograft): CODE(S): T86.828 - Other complications of skin graft (allograft) (autograft) (4) Squamous cell carcinoma of skin of left lower extremity: CODE(S): C44.729 - Squamous cell carcinoma of skin of left lower limb, including hip (5) 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 (6) History of MRSA infection: CODE(S): Z86.14 - Personal history of Methicillin resistant Staphylococcus aureus infection (7) Personal history of skin cancer: CODE(S): Z85.828 - Personal history of other malignant neoplasm of skin (8) Former smoker: CODE(S): Z87.891 - Personal history of nicotine dependence (9) Actinic keratosis: CODE(S): L57.0 - Actinic keratosis (10) Skin infection of left knee: CODE(S): L08.9 - Local infection of the skin and subcutaneous tissue, unspecified PLAN: Plan She has had 2 applications of Thera-Skin advanced substitute graft thus far. No Thera-skin was placed today as she is having skin graft surgery in the operating room later this week on May 13, 2023. The last application of Thera-skin was on April 27, 2003. Patient was informed of the risks and complications of the procedure including alternatives to surgery. These were discussed with the patient personally. Patient voices understanding and wishes to proceed. Potential risks and complications included but not inclusive of bleeding, infection, seroma, hematoma, bruising, swelling, loss of sensation to skin, partial or complete loss of skin flap and/or skin graft, wound breakdown, need for wound care, poor scarring, poor aesthetic outcome, intra operative cardiac or neurologic events, DVT, PE, and reaction to anesthesia. Continue compression with double tubigrip. She is encouraged to keep her legs elevated while sitting to help control her edema. Wound culture from 03/08/23 showed E. coli. She was started on Augmentin. Encourage nutritional supplementation with protein to help the healing process. Her Prealbumin from 07/25/22 was 15.8. Followup next week after her skin graft surgery. Will monitor the healing of the skin grafts before deciding on another placement weeks for another Thera-Skin application. She has two erythematous lesions on her left anterior thigh and dorsal aspect mid left forearm. She will apply Aldara to these actinic lesions. Will evaluate them in 2 months. Will apply the Aldara daily at night and wipe off excess in the morning. Do this 5 days per week for 6 weeks. She was seen by the Radiation Oncologist on 04/23/23. He recommends radiation therapy to the left medial knee after the ulcer has healed. She is scheduled for an autograft in the OR on 05/27/23 to expedite the healing of the ulcer.
== END 2023-05-25 23:59 | disposition home or self-care (01) ==
LOC: WC 14:00
PROVIDERS: PCP Family Medicine; Referring Provider Nurse Practitioner Family; Visit Provider Surgery
DX: L97.312 Non-pressure chronic ulcer of right ankle with fat layer exposed (principal); L97.822 Non-pressure chronic ulcer of other part of left lower leg with fat layer exposed; C44.722 Squamous cell carcinoma of skin of right lower limb, including hip; Z87.891 Personal history of nicotine dependence; L57.0 Actinic keratosis; L08.9 Local infection of the skin and subcutaneous tissue, unspecified; S81.002A Unspecified open wound, left knee, initial encounter; Z86.14 Personal history of Methicillin resistant Staphylococcus aureus infection; Z85.828 Personal history of other malignant neoplasm of skin; T86.828 Other complications of skin graft (allograft) (autograft)
CPT/HCPCS: 11042; 15271; Q4121

== ENCOUNTER 2023-05-13 13:53 | Inpatient (IN) | payer MEDICARE, OTHER, SELFPAY ==
[2023-05-13] VITALS (13 sets, daily range): BP systolic 134–164; BP diastolic 51–77; PULSE 57–75; RESP 16–20; TEMP 36.3–37; O2SAT 97–100; BMI 23.8
[2023-05-13] MEDS: Lactated Ringers 1,000 ML 15 ML IV (08:42)
[2023-05-13] MEDS: Vancomycin IV 1,000 MG/200 ML BAG 200 MG IV (08:42)
--- NOTE | 2023-05-13 09:00 | HP.PCM_ITS ---
History and Physical Date of Admission: 05/13/23 HISTORY OF PRESENT ILLNESS 87 year old woman presented with a lesion left medial knee that had increased in size over the last couple of months and developed painful ulceration. 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 Pathology showed a well differentiated invasive squamous cell carcinoma, completely excised. The carcinoma had a depth of 0.5 cm. Postoperatively the surgical incision from a small fluid collection. Wound care was started with Silver dressing changes as well as 2 applications of Thera-skin advanced skin substitute graft. She is planning on radiation therapy to the left lower extremity. It was recommended to proceed with operative debridement followed by skin grafting because of the need for coverage before radiation therapy begins. I have also removed squamous cell carcinomas from her right medial leg, right medial ankle, and left anteromedial leg in June,. In November 2022, I removed a cutaneous horn lesion from her left lateral knee which was actinic keratosis with atypia. She denies fever. She denies trauma. She denies recent infection. She denies any bleeding. PAST MEDICAL HISTORY Actinic keratoses Ambulates with cane Anxiety Arthritis Asthma Back pain Breast lump Cardiology follow-up encounter Carpal tunnel syndrome COPD (chronic obstructive pulmonary disease) Cutaneous horn Diarrhea Emphysema, unspecified Former smoker Gastric reflux High cholesterol History of CHF (congestive heart failure) History of echocardiogram History of edema History of hiatal hernia History of MRSA infection History of pain when walking History of ulceration Hx of cardiac pacemaker Hypertension IBS (irritable bowel syndrome) Incontinence of urine Loss of hearing Neoplasm of skin of ankle Neoplasm of skin of hand Neoplasm of skin of lower leg On home oxygen therapy Open wound Osteoarthritis Other complications of skin graft (allograft) (autograft) Personal history of skin cancer Restless legs Rheumatoid arthritis Skin cancer 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 Unspecified open wound, left knee, initial encounter Unspecified open wound, right knee, initial encounter Walker as ambulation aid Wears glasses Wears partial dentures PAST SURGICAL HISTORY History of excision of lesion History of lumbar laminectomy History of skin graft History of squamous cell carcinoma excision Hx of colonoscopy Hx of left cataract extraction Hx of left knee surgery Hx of right cataract extraction Hx of toe surgery Hx of tonsillectomy Hx of total hip arthroplasty ALLERGIES Sulfa (Sulfonamide Antibiotics) MEDICATIONS aspirin calcium carbonate hydroxychloroquine magnesium rauiizwa-ajt-eepgj ezrb-hqhcpqgp-hvdhwb (Centrum Silver) cholecalciferol (Vitamin D3) fluticasone mon-pvfoxme-zbzzdh inhalation (Trelegy Ellipta) folic acid amlodipine mirabegron (Myrbetriq) omeprazole trazodone apixaban (Eliquis) albuterol sulfate/actuation aerosol inhaler pramipexole FAMILY HISTORY Mother Cancer multiple myeloma, diagnosed later in life Other Arthritis Heart disease High cholesterol Myocardial infarction Osteoarthritis Respiratory disease SOCIAL HISTORY Smoking Status: Former smoker quit date: 07/26/1956 Tobacco: How many years used: 20 alcohol intake: never substance use type: does not use REVIEW OF SYSTEMS General - Denies fever and weight loss.? Has fatigue. Eyes - Denies cataracts and glaucoma. ENT - Denies nasal congestion and sore throat. Endocrine - Has excessive thirst and urination. Skin - Has personal history of skin cancer.? She has new ulcerated lesion left medial knee. She has scattered actinic lesions dorsum left hand extending to the wrist.? Musculoskeletal - Has joint pain, joint stiffness, weakness of muscles and joints, back pain, and arthritis. Neuro - Denies headaches. Cardiovascular - Denies chest pain, fatigue, and shortness of breath with exertion.? Has pacemaker. Psych - Denies anxiety and depression. Respiratory - Denies chronic cough and shortness of breath.? Has COPD.? Patient is a former smoker. Gastrointestinal - Denies nausea, vomiting, diarrhea.? Has constipation. Has GERD.? Has IBS. Hematologic - Denies abnormal bruising and bleeding. Genitourinary - Denies hematuria and urinary frequency. PHYSICAL EXAMINATION General - Alert and Oriented. HEENT - PERRL. EOMI.? Throat is clear.? No suspicious lesions noted. Neck - Supple and nontender.? No cervical adenopathy.? No suspicious lesions noted. Lungs - Clear to auscultation. Heart - Regular rate and rhythm. Abdomen - Soft and nondistended. Extremities - FROM. No axillary adenopathy.? Radial pulses are palpable.? No inguinal adenopathy.? Dorsalis pedis pulses are palpable? On the left anteromedial leg and right medial leg are healed skin grafts after excision squamous cell carcinomas.? On the right medial ankle, the skin graft is almost healed. Has a small central ulceration that is responding to local wound care. Measures 2.5 cm.? On the left medial knee is a nonhealing ulcer after recent excision of well differentiated invasive squamous cell carcinoma. Measures 3 cm.? Neuro - CN II-XII grossly intact. Psych - Normal mood and affect. ASSESSMENT 1. 3 cm painful nonhealing squamous cell carcinoma ulcer left medial knee. 2. 2.5 cm painful nonhealing squamous cell carcinoma ulcer right medial ankle. 3. Personal history of skin cancer. 4.? History of MRSA. 5.? Former smoker. PLAN Both painful nonhealing squamous cell carcinoma ulcers (left medial knee, and right medial ankle) are stable, and they have responded to Thera-skin advanced skin substitute grafts. She is scheduled to begin radiation therapy as soon as the ulcers have healed. It was recommended to proceed with operative excision and debridement of these painful nonhealing squamous cell carcinoma ulcers (left medial knee and right medial ankle) followed by skin grafting from the flank area. At the time of surgery, will send tissue to Pathology for analysis to rule out carcinoma and to Microbiology for culture. A positive culture will necessitate antibiotic therapy. In case carcinoma is present, will excise with a 1 cm margin in all directions. Reconstruction will be with skin grafting. Will have an mary ellen wrap placed to help minimize swelling postop to allow the incisions to heal. Surgery can be done under general anesthesia with a surgical observation overnight stay in the hospital. Patient was informed of the risks and complications of the procedure including alternatives to surgery.? These were discussed with the patient personally.? Patient voices understanding and wishes to proceed. Some of the risks and complications were included in a form from the [employer]. Potential risks and complications included but not inclusive of bleeding, infection, hematoma, bruising, swelling, loss of sensation to skin, partial or total loss of the skin flap and/or skin graft if performed, wound breakdown, need for wound care, poor scarring, poor aesthetic outcome, intra operative cardiac or neurologic events, DVT, PE, and reaction to anesthesia. After discharge, she [facility].? Assessment & Plan Assessment/Plan (1) Non-pressure chronic ulcer of other part of left lower leg with fat layer exposed: (2) Squamous cell carcinoma of left lower leg: (3) Non-pressure chronic ulcer of right ankle with fat layer exposed: (4) Squamous cell carcinoma of right lower leg: (5) History of MRSA infection: (6) Personal history of skin cancer: (7) Former smoker:
--- NOTE | 2023-05-13 09:30 | LES_PTH ---
PATIENT: JUSTIN VALDOVINOS LOC: [facility] U#:[id number] AGE/SX: 87/F ROOM: IL316 RE05/14/[address]: Dr. Luis F Bergman MD : 1935 BED: 1 DIS: 05/17/2023 SPEC #: [id number] RECD: 05/13/23 13:57 STATUS: GUERO REMBERTO #: [id number] DIMA: 05/13/23 09:[address]: Luis F Bergman DEPT: SURGICAL PATHOLOGY RECD BY: Melissa Russell ENTERED: 05/14/23 10:00 SP TYPE: Lesion OTHR DR: MD Dr. Isaura Goldstein MD Tissues: A - Skin of foot, NOS B - Skin of leg, NOS Procedures: Surgery Specimen Level IV HEADER OPERATION: Surgical preparation right medial with excisional debridement PRE-OP DIAGNOSIS: 2.5 painful ulcerated lesion left medial knee TISSUE SUBMITTED: A - Right medial ankle nonhealing ulcer, suture 12 o'clock, B - Left medial knee nonhealing infected ulcer, suture 12 o'clock MICROSCOPIC DIAGNOSIS A. Right medial ankle nonhealing ulcer, excisional biopsy: Extensive ulceration, acute and chronic inflammation and granulation tissue reaction. Pseudoepitheliomatous hyperplasia. Negative for malignancy. B. Left medial knee nonhealing ulcer, excisional biopsy: Extensive ulceration, acute and chronic inflammation and granulation tissue reaction. Pseudoepitheliomatous hyperplasia. Solar elastosis and focal foreign body giant reaction. Negative for malignancy. SJ:jeremy 05/17/2023 MICROSCOPIC DESCRIPTION Slides are reviewed. GROSS DESCRIPTION A - Received in fixative is one container labeled with the patient's name and designated right medial ankle nonhealing ulcer, suture 12 o'clock. The specimen consists of an ovoid piece of velásquez-white skin measuring 4.0 x 3.2 cm and up to 0.5 cm in thickness. There is an extensive area of ulceration measuring 2.7 x 1.2 cm. The specimen is inked as follows: 12 to 3 o'clock - black, 3 to 6 o'clock - blue, 6?to 9 o'clock - green, 9 to 12 o'clock - yellow and deep margin - red. The specimen is serially sectioned and submitted entirely in six cassettes. B - Received in fixative is one container labeled with the patient's name and designated left medial knee nonhealing infected ulcer, suture at 12 o'clock. The specimen consists of an ovoid piece of velásquez-white skin measuring 4.3 x 3.0 cm and up to 1.0 cm in thickness. There is an extensive area of ulceration measuring 2.7 x 1.2 cm. The specimen is inked as follows: 12 to 3 o'clock - black, 3 to 6 o'clock - blue, 6?to 9 o'clock - green, 9 to 12 o'clock - yellow and deep margin - red. The specimen is serially sectioned and submitted entirely in ten cassettes. / ANDREA:jeremy 05/14/2023 TC:2 CPT: 28956 x2
[2023-05-13] MEDS: levoFLOXacin IV 500 MG/100 ML BAG 100 MG IV ×2 (10:09→17:17)
[2023-05-13] MEDS: Lidocaine 1% /Epi 1:100 (50ml) 50 ML VIAL (10:43)
[2023-05-13] MEDS: Mupirocin Ointment 22gm Tube 1 APPLIC (12:13)
--- NOTE | 2023-05-13 12:52 | PCM.OPRPT ---
Problems Associated Problem List Diagnoses (1) Non-pressure chronic ulcer of other part of left lower leg with fat layer exposed: (2) Squamous cell carcinoma of left lower leg: (3) Non-pressure chronic ulcer of right ankle with fat layer exposed: (4) Squamous cell carcinoma of right lower leg: (5) Personal history of skin cancer: (6) History of MRSA infection: (7) Former smoker: Report of Operation Date of Procedure: 05/13/23 Pre-Operative Diagnosis: 1. 3 cm painful nonhealing squamous cell carcinoma ulcer left medial knee. 2. 2.5 cm painful nonhealing squamous cell carcinoma ulcer right medial ankle. 3. Personal history of skin cancer. 4. History of MRSA. 5. Former smoker. Post-Operative Diagnosis: Same. Surgery/Procedure Performed:: 1. Surgical preparation left medial knee with excision 3 cm painful nonhealing squamous cell carcinoma ulcer and STSG reconstruction from the left flank (20 cm2). 2. Surgical preparation right medial ankle with excision 2.5 cm painful nonhealing squamous cell carcinoma ulcer and STSG reconstruction from the left flank (17.5 cm2). Description of Surgical Findings:: 87 year old woman presented with a lesion left medial knee that had increased in size over the last couple of months and developed painful ulceration. 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 Pathology showed a well differentiated invasive squamous cell carcinoma, completely excised. The carcinoma had a depth of 0.5 cm. Postoperatively the surgical incision from a small fluid collection. Wound care was started with Silver dressing changes as well as 2 applications of Thera-skin advanced skin substitute graft. She is planning on radiation therapy to the left lower extremity. It was recommended to proceed with operative debridement followed by skin grafting because of the need for coverage before radiation therapy begins. I have also removed squamous cell carcinomas from her right medial leg, right medial ankle, and left anteromedial leg in June,. In November 2022, I removed a cutaneous horn lesion from her left lateral knee which was actinic keratosis with atypia. She denies fever. She denies trauma. She denies recent infection. She denies any bleeding. Patient was informed of the risks and complications of the procedure including alternatives to surgery. These were discussed with the patient personally. Patient voices understanding and wishes to proceed. Some of the risks and complications were included in a form from the [employer]. Potential risks and complications included but not inclusive of bleeding, infection, seroma, hematoma, bruising, swelling, prolonged need for drains, loss of sensation to skin, partial or complete loss of skin flap and/or skin graft, wound breakdown, need for wound care, poor scarring, poor aesthetic outcome, intra operative cardiac or neurologic events, DVT, PE, and reaction to anesthesia. Size of skin graft left medial knee - 5 x 4 cm or 20 cm2. Size of skin graft right medial ankle - 5 x 3.5 cm or 17.5 cm2. I used Interfyl Placental Connective Tissue Matrix, (I injected half a syringe under each skin graft). Catalog Number - [id number]. Lot Number - [id number]. Device Identification Number - [id number]. Expiration - June 04, 2031. I used Pete absorbable hemostat, (I used one vial in the left flank donor area). Reference Number - [id number]. Lot Number - [id number]. Device Identification Number - [id number]. Expiration - November 21, 2027. Surgeon: Luis F Bergman MD recycling program manager: Ariana Nina RNFA Type of Anesthesia: General Anesthesiologist: Alexandre Ureña MD and Real Kaminski CRNA Specimen's removed: 1. Painful nonhealing squamous cell carcinoma ulcer left medial knee to Pathology and Microbiology. 2. Painful nonhealing squamous cell carcinoma ulcer right medial ankle to Pathology and Microbiology. Drains: None. Estimated Blood Loss (mL): 50. Description of Procedure: Patient was taken to OR in supine position and was placed under general anesthesia. The left flank and bilateral extremity areas were prepped and draped in the usual fashion. SCD's were not placed for DVT prophylaxis, because I was operating on both lower extremities. So I used chemoprophylaxis with Heparin twice a day. Perioperative antibiotics were given intravenously. Using xylocaine with epinephrine, the lesions on both lower extremities and the left flank donor area were infiltrated. After waiting 5 minutes for the anesthetic to take effect, I made a circular incision around the nonhealing squamous cell carcinoma ulcer on the right medial ankle. I used a 1 cm margin in all directions because of the large size of the carcinoma thus making it a 4.5 cm excision for the right medial ankle. There was a lot of scar tissue present. Because of the denseness of the underlying scar tissue, I excised all the way down to the fascia. This dense scar tissue gets in the way of healing. Hemostasis was obtained with electrocautery. The surgical wound measures 5 x 3.5 cm or 17.5 cm2. I then went to the left medial knee and made a circular incision around the nonhealing squamous cell carcinoma ulcer. I used a 1 cm margin in all directions because of the large size of the carcinoma thus making it a 5 cm excision for the left medial knee. There was a lot of scar tissue present. Because of the denseness of the underlying scar tissue, I excised all the way down to the fascia. This dense scar tissue gets in the way of healing. Hemostasis was obtained with electrocautery. The surgical wound measures 5 x 4 cm or 20 cm2. Both specimens (left medial knee and right medial ankle) were sent separately to Pathology for analysis to rule out carcinoma at the margins. Some tissue from each specimen was also sent to Microbiology for culture. A positive culture will necessitate antibiotic therapy. Moving to the left flank, I made an oblique elliptical monroe where the donor skin will come from. Incision was made and the subcutaneous tissue was removed from the undersurface of the dermis including some of the deeper dermis thus fashioning a thick split thickness skin graft. The skin was placed on stretch. Using a 15 scalpel, I meshed the skin graft. The skin graft was placed in saline. The donor incision was then closed. Some of the deeper subcutaneous tissue was also excised to aid in wound healing. Hemostasis was obtained with electrocautery and the wound was irrigated with saline. I sprayed Pete absorbable hemostat into the left flank wound to minimize seroma formation. Justine's fascia was approximated with 2-0 Vicryl figure of eight interrupted sutures. The deep dermis and subcutaneous tissue was approximated with 3-0 Monocryl interrupted sutures. The skin was approximated with 3-0 Vlock unidirectional barbed running subcuticular suture. This was followed by Histoacryl skin tissue adhesive. I then placed the thick split thickness skin graft into the wounds (left medial knee and right medial ankle) and secured it to the skin edge with 3-0 Chromic simple interrupted sutures. 3-0 Chromic sutures were also placed for central quilting stabilization. Good bleeding was seen in the skin graft and it started to adhere to the underlying wounds. Before the graft was stabilized, one edge of the graft was lifted up. I then sprayed a syringe of Interfyl placental connective tissue matrix underneath the skin grafts to help improve the healing of these skin grafts. There was one syringe, so I injected half of the syringe into each graft. She is scheduled for radiation therapy in the near future once the skin grafts have healed. Antibiotic ointment was applied to the skin grafts and covered with Xeroform gauze and cotton balls soaked in saline and secured to the skin with 4-0 Nylon tie over stent suture dressing. Gauze dressing was applied to the donor area left flank and over the graft dressings (left medial knee and right medial ankle) which was followed by compression mary ellen wraps. Patient tolerated the procedure well and was sent to PACU in satisfactory condition. Patient will be sent upstairs for continued postop care with a surgical observation overnight stay. The skin graft dressings will be removed in 4-5 days. Once there is adequate healing, she will start radiation therapy. Grafts/Implants Used: Interfyl Placental Connective Tissue Matrix, Pete Procedure Start Time: 10:42 Procedure Stop Time: 12:49 Complications None. Admit VTE Documentation VTE Present on Admission: No VTE Mechan Device Prophylaxis: None (I operated on both lower extremities.) VTE Pharm Prophylaxis ordered?: Yes Addendum Addendum: Surgery Charges CPT - 98366 ICD-10 - L97.822, C44.729, Z85.828, Z86.14, Z87.891, L97.312, C44.722 84376 L97.822, C44.729, Z85.828, Z86.14, Z87.891, L97.312, C44.722 [id number] L97.312, C44.722, Z85.828, Z86.14, Z87.891, L97.822, C44.729 57766 L97.312, C44.722, Z85.828, Z86.14, Z87.891, L97.822, C44.729
--- NOTE | 2023-05-13 14:30 | PN.HOSP_ITS ---
Reason for Visit Reason for Visit: Diagnoses Essential (primary) hypertension (05/13/23) Unspecified atrial fibrillation (05/13/23) Chronic obstructive pulmonary disease, unspecified (05/13/23) Unspecified osteoarthritis, unspecified site (05/13/23) Personal history of other malignant neoplasm of skin (05/13/23) Personal history of Methicillin resistant Staphylococcus aureus infection (05/13/23) Personal history of other diseases of the circulatory system (05/13/23) Presence of cardiac pacemaker (05/13/23) Subjective Subjective Patient with no perioperative events per per self and per nursing report. She does report some shoulder discomfort acute on chronic likely secondary to positioning but notes the discomfort to her knee, ankle or abdomen is very minimal. She does report having a dry mouth with some mild nausea. Patient denies fevers, chills, nausea, emesis, abdominal pain, chest pain or dyspnea. Objective Data Objective Data Vital Signs: Vital Signs Temp Pulse Resp BP Pulse Ox O2 Del Method O2 Flow Rate 97.6 F L 65 17 164/55 H 100 Nasal Cannula 3 05/13/23 14:00 05/13/23 14:00 05/13/23 14:00 05/13/23 14:00 05/13/23 14:00 05/13/23 14:00 05/13/23 14:00 Oxygen Flow Rate (L/min) 3 Oxygen Delivery Method Nasal Cannula Weight: 152 lb 1.903 oz Body Mass Index (BMI) 23.8 Intake & Output: Intake and Output for Last 24 Hours 05/11/23 05/12/23 05/13/23 23:59 23:59 23:59 Intake Total 100 / 100 Balance 100 / 100 Physical Exam Narrative Physical Examination: General: Awake, alert, oriented x 3 and cooperative, seated upright in MS bed, fatigued otherwise no acute distress. Skin: Normal color, normal turgor, no icterus, no cyanosis except for recent debridement of the right ankle, left knee with grafting from the left lateral abdomen with dressings in place with no drainage. HEENT: AT/NC, EOMI, PERRLA, moderately dry MM. Lungs: Mildly diminished, greater bases, proper effort, no rales, ronchi or wheezing. Heart: Mildly bradycardic; no gallop, rub audible, + SM. Abdomen: Soft, expected tenderness to palpation near the grafting section of the left lower lateral abdomen, no marked distention evident, mildly hyperactive BS. Extremities: No cyanosis, clubbing, or marked edema, see skin. Neurological: Patient awake, alert, oriented as noted, cognitive function intact; pupils equally reactive to light and accommodation, cranial nerves II- XII grossly normal, moving all 4 extremities, no focal deficits, strength moderately globally decreased secondary to recent operative interventions and advanced age with underlying comorbidities. Psychiatric: Affect appears fatigued, no acute evidence of depressive or anxiety feelings. Assessment & Plan Assessment/Plan (1) Nonhealing surgical wound: PLAN: Plan The patient is an 87 y/o F w/ PMHx: PAF: COPD/Asthma w/ Chronic Hypoxic Respiratory Failure, Anxiety and Depression, Former tobacco use, GERD, HTN, HLD, Rheumatoid arthritis, RLS, Chart reported history CHF, unclear type with no ECHO in the system, Invasive Well Differentiated Squamous Cell Carcinoma who presents to the [facility] on 05/13/23 for planned surgical intervention for her recurrent skin CA per Dr. Bergman. #1. 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 Rodriguez for Radiation therapy as well as Dr. Buenrostro Oncology, admitted per Dr. Bergman with excision for left knee and right ankle with skin flat/graft from abdomen, maintained on IV vancomycin and IV Levaquin, wound RN consultation, post-operative pain management, bowel regimen, DVT Prophylaxis, PT/OT/CM per Plastic surgery discretion. #2. Chronic COPD/asthma with chronic hypoxic respiratory failure with chronic rhinitis/allergic rhinitis: Will maintain on home oxygen supplementation, will c an continue home Trelegy, PRN albuterol, HOB, IS parameters, continue patient home fluticasone home regimen. #3. Anxiety and depression: From current list patient utilizes nightly trazodone, does not appear to be on any other regimen, encourage continued outpatient follow-up including therapy and regimen alteration as needed. #4. Chart reported history of CHF, unclear type: Patient with no echocardiogram in the system, unclear if preserved or reduced ejection fraction, judiciously hydrate given unclear history, continue home statin, not on beta-gretchen nor LEROY inhibitor/ARB of note nor diuretic therapy. Resume aspirin and patient home Eliquis once surgery amenable. #5. PAF: Per current list not on any rate or rhythm agent, chronic home lower dose apixaban currently being held for interventions as noted #1, resume once amenable per surgery. #6. Hypertension: Continue home regimen including amlodipine, PRN hydralazine. #7. Hyperlipidemia: We will continue patient on statin therapy. #8. Rheumatoid arthritis: We will continue patient home chronic hydroxychloroquine and folic acid regimen. Given usage of perioperative levaquin, if prolonged usage may need to consider EKG to assess QT. #9. Chronic anemia/iron deficiency anemia: No labs currently performed upon hospital presentation, will obtain CBC in a.m., previous most recent labs with normal hemoglobin level, continue iron supplementation. #10. Restless leg syndrome: We will continue patient home pramipexole regimen. #11. Former tobacco use: Encourage continued tobacco cessation. #12. GERD: Continue patient home PPI. #13. DVT prophylaxis: Patient is normally on Eliquis regimen, may resume once cleared per surgery given recent operative intervention. Charges/Coding Visit Charges Inpatient E&M: 91718 [facility] H[facility] L3
[2023-05-13 15:49] LABS: Creatinine, Serum 0.58 mg/dL (0.55-1.02); EST Glomerular Filtration Rate 104 mL/min (>60); Est Glom Filt Rate - Afr Amer 126 mL/min (>60)
[2023-05-13] MEDS: Juven (unflavored) Packet 1 PACKET PO (16:26)
[2023-05-13] MEDS: Hydroxychloroquine 200 MG Tablet PO (16:26)
--- NOTE | 2023-05-13 16:31 | PCM.RX.CS ---
Consult Antibiotic Management Pharmacy has been consulted to manage selected antiobiotic: Vancomycin Type of Intervention Type of Consult: New start Suspected Infection Suspected Infection: Other (SURGICAL SITE INFECTION) Prior Doses of Antibiotics Prior Doses of Antibiotics Received/Current Regimen: Vancomycin 1000 mg IV x 1 given 05/13/23 @ 0842, patient is also on levofloxacin. Labs Labs: Creatinine 0.58 mg/dL (0.55-1.02) 05/13/23 15:19 Est GFR (MDRD) Af Amer 126 mL/min (>60) 05/13/23 15:19 Est GFR (MDRD) Non-Af 104 mL/min (>60) 05/13/23 15:19 Microbiology Microbiology: Microbiology 05/13/23 13:00 Tissue - Knee Gram Stain - Final 05/13/23 13:00 Tissue - Ankle Gram Stain - Final Dosing Weight Weight used for dosin lb 1.903 oz Estimated Creatinine Clearance Estimated Creatinine Clearance: 40 Goal Trough Goal Trough: 10-15 mcg/mL Pharmacy Plan for Drug Dosing Pharmacy Plan for Drug Dosing: Vancomycin 1000 mg initial dose followed by 750 mg IV Q24H based on weight and renal function. Trough prior to 3rd dose. Pharmacy Service will continue to monitor and adjust dosing as required. Follow-Up Labs Follow-Up Labs: Trough: Vancomycin Date/Time Labs Ordered Labs to be done on [date and time ordered]: 05/15/23 @ 0847
[2023-05-13] MEDS: Budesonide Respules 0.5 MG/2 ML AMPUL.NEB. INHALATION (20:00)
[2023-05-13] MEDS: Ipratropium/Albuterol Sulfate 3 ML AMPUL.NEB INHALATION (20:00)
[2023-05-13] MEDS: Ferrous Sulfate 325 MG Tablet PO (22:43)
[2023-05-13] MEDS: Heparin Injection (Vial) 5,000 UNIT/ML VIAL 5000 UNIT SC (22:43)
[2023-05-13] MEDS: Pramipexole Di-HCl 1 MG Tablet PO (22:43)
[2023-05-13] MEDS: Docusate Sodium 100 MG Capsule PO (22:43)
[2023-05-13] MEDS: traZODone 50 MG Tablet PO (22:45)
[2023-05-13] MEDS: Magnesium Chloride 64 MG Delay Rel.Tablet 128 MG PO (22:46)
[2023-05-13] MEDS: Acetaminophen 325 MG Tablet 650 MG PO (23:37)
[2023-05-14] VITALS (8 sets, daily range): BP systolic 114–142; BP diastolic 45–73; PULSE 70–79; RESP 16–20; TEMP 36.4–37.3; O2SAT 92–99
[2023-05-14 06:15] LABS: Hematocrit 37.9 % (37-47); Hemoglobin 11.9 g/dL (12.0-15.0); Mean Corp Hgb Conc 31.4 g/dL (32-36); Mean Corpuscular Hgb 32.7 pg (27.0-32.0); Mean Corpuscular Volume 104.1 fL (81-99); Mean Platelet Vol. 9.7 fl (6.2-12.0); Platelet Count 179 K/mm3 (150-450); RBC Distribution Width CV 13.1 % (11.6-14.6); RBC Distribution Width SD 50.4 fl (35.1-43.9); Red Blood Count 3.64 M/mm3 (4.2-5.4); White Blood Count 7.4 K/mm3 (4.4-11.0)
[2023-05-14 06:41] LABS: Anion Gap 4 (5-15); BUN 17 mg/dL (7-18); BUN/Creat Ratio 24.6 RATIO (10-20); Calcium,Total 8.7 mg/dL (8.5-10.1); Chloride 104 mmol/L (98-107); Creatinine, Serum 0.69 mg/dL (0.55-1.02); EST Glomerular Filtration Rate 86 mL/min (>60); Est Glom Filt Rate - Afr Amer 103 mL/min (>60); Glucose 108 mg/dL (74-106); Potassium 4.1 mmol/L (3.5-5.1); Prealbumin 20.9 mg/dL (20.0-40.0); Sodium Level 136 mmol/L (136-145)
[2023-05-14] MEDS: oxyCODONE 5 MG Tablet 10 MG PO (07:10)
[2023-05-14] MEDS: Ipratropium/Albuterol Sulfate 3 ML AMPUL.NEB INHALATION ×2 (07:20→19:55)
[2023-05-14] MEDS: Budesonide Respules 0.5 MG/2 ML AMPUL.NEB. INHALATION ×2 (07:20→19:55)
[2023-05-14] MEDS: Juven (unflavored) Packet 1 PACKET PO ×2 (08:41→17:24)
[2023-05-14] MEDS: Hydroxychloroquine 200 MG Tablet PO ×2 (08:42→17:24)
[2023-05-14] MEDS: Pantoprazole Sodium 40 MG Tablet PO (08:42)
[2023-05-14] MEDS: Multivitamins,Ther W-Minerals Tablet 1 TABLET PO (08:42)
[2023-05-14] MEDS: amLODIPine 2.5 MG Tablet PO (08:42)
[2023-05-14] MEDS: Docusate Sodium 100 MG Capsule PO ×2 (08:42→20:30)
[2023-05-14] MEDS: Mirabegron 25 MG TAB.ER.24H PO (08:43)
[2023-05-14] MEDS: Magnesium Chloride 64 MG Delay Rel.Tablet 128 MG PO ×2 (08:43→20:30)
[2023-05-14] MEDS: Heparin Injection (Vial) 5,000 UNIT/ML VIAL 5000 UNIT SC ×2 (08:44→20:30)
[2023-05-14] MEDS: Vancomycin HCl 750 MG in 0.9% Normal Saline (250mL Bag) 250 ML 250 MG IV (09:19)
--- NOTE | 2023-05-14 10:51 | CASEMGMT ---
Social Work SW met with pt to discuss advance directives.? Pt confirms she has completed a living will and health care POA naming her daughter Haylee Bustos.? Pt notified that documents are not on file at [facility] and SW requested they be brought in for scanning into the EMR.? SELENA De La Cruz
[2023-05-14] MEDS: levoFLOXacin IV 250 MG/50 ML BAG 50 MG IV (11:04)
--- NOTE | 2023-05-14 11:10 | CASEMGMT ---
Addendum entered by Ara Gibson 05/14/23 14:37: Pt's daughter (Haylee) states she is the HCPOA for pt,. and that pt. does have a LW that they are meeting with their deputy county attorney to amend next week. Addendum entered by Ara Gibson 05/14/23 13:29: Michael called me back and verified that pt wears 2Lpm oxygen HS. Addendum entered by Ara Gibson 05/14/23 12:54: CECILIA LOVE called [facility] and [facility] for them asking to call us back to verify oxygen for pt. Left them our contact information. Addendum entered by Ara Gibson 05/14/23 12:48: Patient was provided a list of [facility] providers including quality and resource use data and consistent with the patient?s preferred geographic region, medical needs, and insurance network were provided from the [facility] Guide. Pt. and her daughter state they will consider this and provide RN CM with their top 3 choices. RN CM to check back with m on this. Original Note: RN CM Assessment: Face to Face with pt for initial transition planning/care coordination assessment. RN CM introduced self and role at [facility], pt voices understanding and consents to assessment. Pt;s daughter, Haylee, is also present at the beside per pt's permission.Pt is A&O x4 and answers all questions appropriately at this time. Care providers, pharmacy, and demographics verified/updated. Admitting Dx:Surgical preparation Right medial PCP:[facility] Specialists:Innovation Manager, Sweatband Flanger, Oncologist, Communications Engineer, Track Man (pt. unsure of names of these providers. She is aware that she saw Dr. Bergman for her procedure). Preferred Pharmacy: [facility] ([place]) Insurance: [facility] A & B Prescription Benefit: yes LNOK:Haylee Bustos (Daughter) Living Arrangements: Pt lives alone in a 1 story, [facility], with 1 step and raling to enter. Pt. has a caregiver through [facility] (private pay) who sees her every morning till about noon. States caregiver assists with bathing, wound dressing changes, cleaning, cooking, and transportation. Transportation: Pt states her caregiver provides transportation and if needed she can ask a friend for assistance (pt's children live in [facility] and one of the [facility]) DME:Raised tolit seat, canes, lift chair (does not use), grab bars, hand held shower, walker and rollator, medical alert system, 2 lpm oxygen at HS through [facility], and pulse ox. Pt. does not voice need for an additional DME upon discharge. HHC/SNF:Pt states she was [place] in and [place] on 2016. States she did previously have HHC but cannot recall the agency. Pt states she would like to d/c home with continued care from her caregiver, and PT through a HHC through her insurance (pt. and daughter both decline SN because the caregiver can assist with wound dressing changes and because pt. goes to Wound Center once a week). Pt states no further concerns/needs. CM to follow. Advised pt to ask CM if any further question/concerns/needs arise, voices understanding. Pt Goal: Home with PT HHC and support of caregiver Plan: Pt. to discharge home with HHC (PT only), and the continued support from her caregiver and wound center appointments. RN CM will continue to follow pt. and plan for a safe discharge.
[2023-05-14] MEDS: Pramipexole Di-HCl 0.5 MG Tablet PO (12:09)
[2023-05-14] MEDS: Atorvastatin Calcium 10 MG Tablet PO (12:09)
[2023-05-14] MEDS: Folic Acid 1 MG Tablet 2 MG PO (12:09)
--- NOTE | 2023-05-14 13:50 | CASEMGMT ---
HELGA LOVE spoke with PT and was informed that pt. was a 2 assist to stand and will need placed. HELGA LOVE in to pt. room to discuss this with Pt. and her daughter. Pt's daughter is in favor of pt. going to a SNF, but pt. prefers to d/c home with private pay C. 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 They both voice understanding of this and state they need more time to consider this. Helga LOVE to follow up with pt. and her daughter.
--- NOTE | 2023-05-14 14:54 | PCM.PROGNOTE ---
Subjective Subjective Patient seen and examined. She had no active complaints. Pain was well controlled. Today's postop day 1 for left medial knee excision of squamous cell carcinoma and right medial ankle excision of squamous cell carcinoma. She has remained hemodynamically stable. Objective Data Objective Data Vital Signs: Vital Signs Temp Pulse Resp BP Pulse Ox O2 Del Method O2 Flow Rate 97.9 F 78 16 126/63 H 95 Room Air 3 05/14/23 11:13 05/14/23 11:13 05/14/23 11:13 05/14/23 11:13 05/14/23 11:13 05/14/23 13:46 05/14/23 03:13 Oxygen Flow Rate (L/min) 3 Oxygen Delivery Method Room Air Weight: 152 lb 1.903 oz Body Mass Index (BMI) 23.8 Intake & Output: Intake and Output for Last 24 Hours 05/12/23 05/13/23 05/14/23 23:59 23:59 23:59 Intake Total 650 / 650 1140 / 1140 Output Total 1250 / 1250 1700 / 1700 Balance -600 / -600 -560 / -560 Lab / Micro Data 05/14/23 05:51 05/14/23 05:51 Labs: Laboratory Results - last 24 hr 05/13/23 15:19: Creatinine 0.58, Estim Creat Clear Calc 40.00, Est GFR (MDRD) Af Amer 126, Est GFR (MDRD) Non-Af 104 05/14/23 05:51: WBC 7.4, RBC 3.64 L, Hgb 11.9 L, Hct 37.9, MCV 104.1 H, MCH 32.7 H, MCHC 31.4 L, RDW Std Deviation 50.4 H, RDW Coeff of Calvin 13.1, Plt Count 179, MPV 9.7, Sodium 136, Potassium 4.1, Chloride 104, Carbon Dioxide 28.0, Anion Gap 4 L, BUN 17, Creatinine 0.69, Estim Creat Clear Calc 40.00, Est GFR (MDRD) Af Amer 103, Est GFR (MDRD) Non-Af 86, BUN/Creatinine Ratio 24.6 H, Glucose 108 H, Calcium 8.7, Prealbumin 20.9 Micro: Microbiology 05/13/23 13:00 Tissue - Knee Gram Stain - Final 05/13/23 13:00 Tissue - Knee Wound Culture - Preliminary Staphylococcus aureus 05/13/23 13:00 Tissue - Ankle Gram Stain - Final 05/13/23 13:00 Tissue - Ankle Wound Culture - Preliminary Gram Positive Cocci Physical Exam Const alert, oriented x3 and no apparent distress General Appearance: cooperative HEENT normocephalic, head/scalp atraumatic, moist oral mucous membranes and oropharynx normal Eyes PERRL and EOMs intact bilaterally Neck no lymphadenopathy, supple and no JVD Lymph Lymphatic: no lymphadenopathy noted and no lymphedema noted Resp normal respiratory effort, normal air movement and clear to auscultation bilaterally Cardio regular rate, regular rhythm, S1 normal heart sound, S2 normal heart sound, no murmurs and no rub GI normal to inspection, nondistended, normoactive bowel sounds, soft to palpation, non-tender and non-distended Extremity Extremity Narrative: bandage in place over lower extremities bilaterally General Extremity: no tenderness to palpation of joints or extremities Skin Wound Narrative: as under extremities Neuro CN's II-XII intact bilaterally and no focal motor deficits Motor Exam: general weakness Psych thought process normal, cooperative and affect normal Appearance: appropriate Assessment & Plan Assessment/Plan (1) Squamous cell carcinoma of right lower leg: (2) Hypertension: (3) Non-pressure chronic ulcer of right ankle with fat layer exposed: PLAN: Plan #Invasive squamous cell carcinoma of the left medial knee and right ankle S/p resection. Management as per plastic surgery. On IV vancomycin and Levaquin. Plastic surgery. Wound care on board. PT OT on board. #COPD and asthma: Not in exacerbation. Breathing treatments bronchodilators. #Anxiety and depression: Trazodone nightly. #Paroxysmal A-fib: Not on any medication. On Eliquis. #Hypertension: On amlodipine. IV hydralazine as needed. #Hyperlipidemia: On statin. #Rheumatoid arthritis: On hydroxychloroquine and folic acid. #Restless leg syndrome: On pramipexole #GERD: On PPI. DVT prophylaxis: To resume Eliquis when okay with plastic surgery. Charges/Coding Visit Charges Inpatient E&M: 55944 [facility] Hosp L2
--- NOTE | 2023-05-14 15:12 | PCM.PN.SRG ---
Subjective Subjective Postop #1 Patient is sitting up in chair, she states she is having minimal discomfort. She states that she feel weak and needed assistance up to the chair. She states she needed to have a catheter placed last night because she could not urinate. Objective Data Objective Data Vital Signs: Vital Signs Temp Pulse Resp BP Pulse Ox O2 Del Method O2 Flow Rate 97.9 F 78 16 126/63 H 95 Room Air 3 05/14/23 11:13 05/14/23 11:13 05/14/23 11:13 05/14/23 11:13 05/14/23 11:13 05/14/23 13:46 05/14/23 03:13 Oxygen Flow Rate (L/min) 3 Oxygen Delivery Method Room Air Weight: 152 lb 1.903 oz Body Mass Index (BMI) 23.8 Intake & Output: Intake and Output for Last 24 Hours 05/12/23 05/13/23 05/14/23 23:59 23:59 23:59 Intake Total 650 / 650 1140 / 1140 Output Total 1250 / 1250 1700 / 1700 Balance -600 / -600 -560 / -560 Lab / Micro Data Attestation: I reviewed the patient's lab results. 05/14/23 05:51 05/14/23 05:51 Labs: Laboratory Results - last 24 hr 05/13/23 15:19: Creatinine 0.58, Estim Creat Clear Calc 40.00, Est GFR (MDRD) Af Amer 126, Est GFR (MDRD) Non-Af 104 05/14/23 05:51: WBC 7.4, RBC 3.64 L, Hgb 11.9 L, Hct 37.9, MCV 104.1 H, MCH 32.7 H, MCHC 31.4 L, RDW Std Deviation 50.4 H, RDW Coeff of Calvin 13.1, Plt Count 179, MPV 9.7, Sodium 136, Potassium 4.1, Chloride 104, Carbon Dioxide 28.0, Anion Gap 4 L, BUN 17, Creatinine 0.69, Estim Creat Clear Calc 40.00, Est GFR (MDRD) Af Amer 103, Est GFR (MDRD) Non-Af 86, BUN/Creatinine Ratio 24.6 H, Glucose 108 H, Calcium 8.7, Prealbumin 20.9 Micro: Microbiology 05/13/23 13:00 Tissue - Knee Gram Stain - Final 05/13/23 13:00 Tissue - Knee Wound Culture - Preliminary Staphylococcus aureus 05/13/23 13:00 Tissue - Ankle Gram Stain - Final 05/13/23 13:00 Tissue - Ankle Wound Culture - Preliminary Gram Positive Cocci Physical Exam Const oriented x3 HEENT normocephalic Resp normal respiratory effort Cardio regular rate GI soft to palpation Bladder / Kidney Exam: catheter in place Extremity no calf tenderness Skin Wound Narrative: Operative dressings are dry and intact. No active bleeding. LEROY wrap for compression. Neuro oriented x3 and moves all extremities Psych cooperative Assessment & Plan Assessment/Plan (1) Squamous cell carcinoma of right lower leg: (2) Edema leg: (3) Non-pressure chronic ulcer of other part of left lower leg with fat layer exposed: (4) Other acute postprocedural pain: (5) Physical debility: PLAN: Plan Patient states that she is having minimal pain. She she states that she feels weak. PT ordered for evaluation. She is requiring 2 person assistance for transfer and ambulation. Her mobility is compromised. She is unsafe to return to home at this time. Will discuss with case management/social work for possible placement for rehab. Had a discussion with her daughter that she may not be able to go home safely, her daughter verbalized understanding. She had issues last night with being able to completely empty her bladder and had to have a Carias catheter reinserted, which took multiple attempts. Will consider removing over the weekend. Operative dressings are intact with no active bleeding. Keep LEROY wrap on lower extremities. Preliminary operative culture of left knee positive for Staphylococcus aureus. Right medial ankle preliminary culture positive for Gram Positive cocci. She is currently receiving Levaquin and Vancomycin. Prealbumin today 20.9. Encouraged increase protein intake to help with wound healing. Since she is having increased weakness, she may need placement upon discharge until she is strong enough to go home. She will follow up with Dr. Bergman or myself at the wound healing center.
--- NOTE | 2023-05-14 15:19 | CASEMGMT ---
Met with patient to complete MAJOR form. MAJOR form explained to patient who voiced understanding and signed form. Original form placed in pt?s chart and copy provided to patient. Maribeth Dennison, Discharge Planning Asst.
--- NOTE | 2023-05-14 16:24 | CASEMGMT ---
Social Work Per therapy, pt would benefit from short term SNF prior to return home. SW met with pt and dgt Haylee and introduced self and role of SW. SW discussed discharge plans with pt and possible SNF placement. A list of SNF providers including quality and resource use data and consistent with the patient?s preferred geographic region, medical needs, and insurance network were provided from the [facility] Guide. Pt and dgt to review list and SW will follow up. SELENA De La Cruz
[2023-05-14] MEDS: BENZOCAINE/MENTHOL 1 LOZENGE MUCOUS MEM (20:29)
[2023-05-14] MEDS: Ferrous Sulfate 325 MG Tablet PO (20:30)
[2023-05-14] MEDS: traZODone 50 MG Tablet PO (20:30)
[2023-05-14] MEDS: Pramipexole Di-HCl 1 MG Tablet PO (20:36)
[2023-05-15] VITALS (7 sets, daily range): BP systolic 122–156; BP diastolic 51–72; PULSE 71–83; RESP 14–20; TEMP 36.5–36.8; O2SAT 93–99
[2023-05-15] MEDS: Budesonide Respules 0.5 MG/2 ML AMPUL.NEB. INHALATION ×2 (07:12→19:34)
[2023-05-15] MEDS: Ipratropium/Albuterol Sulfate 3 ML AMPUL.NEB INHALATION ×3 (07:12→19:35)
[2023-05-15] MEDS: levoFLOXacin IV 250 MG/50 ML BAG 50 MG IV (09:24)
[2023-05-15] MEDS: Docusate Sodium 100 MG Capsule PO ×2 (09:25→21:34)
[2023-05-15] MEDS: Hydroxychloroquine 200 MG Tablet PO ×2 (09:26→16:28)
[2023-05-15] MEDS: Folic Acid 1 MG Tablet 2 MG PO (09:26)
[2023-05-15] MEDS: Pantoprazole Sodium 40 MG Tablet PO (09:26)
[2023-05-15] MEDS: Multivitamins,Ther W-Minerals Tablet 1 TABLET PO (09:27)
[2023-05-15] MEDS: Heparin Injection (Vial) 5,000 UNIT/ML VIAL 5000 UNIT SC ×2 (09:28→21:34)
[2023-05-15] MEDS: Juven (unflavored) Packet 1 PACKET PO ×2 (09:28→16:28)
[2023-05-15] MEDS: Magnesium Chloride 64 MG Delay Rel.Tablet 128 MG PO ×2 (09:29→21:35)
[2023-05-15] MEDS: Mirabegron 25 MG TAB.ER.24H PO (09:29)
[2023-05-15] MEDS: amLODIPine 2.5 MG Tablet PO (09:30)
[2023-05-15] MEDS: Pramipexole Di-HCl 0.5 MG Tablet PO (09:31)
[2023-05-15] MEDS: Atorvastatin Calcium 10 MG Tablet PO (09:32)
[2023-05-15 09:34] LABS: Vancomycin, Trough Level 3.8 ug/mL (5.0-15.0)
[2023-05-15] MEDS: Vancomycin HCl 750 MG in 0.9% Normal Saline (250mL Bag) 250 ML 250 MG IV ×2 (11:06→21:35)
--- NOTE | 2023-05-15 11:26 | PCM.PN.SRG ---
Subjective Subjective Postop #2 Patient is resting comfortably. Objective Data Objective Data Vital Signs: Vital Signs Temp Pulse Resp BP Pulse Ox O2 Del Method O2 Flow Rate 97.9 F 71 14 131/72 H 97 Nasal Cannula 3 05/15/23 09:10 05/15/23 09:10 05/15/23 09:10 05/15/23 09:10 05/15/23 09:10 05/15/23 09:10 05/15/23 09:10 Oxygen Flow Rate (L/min) 3 Oxygen Delivery Method Nasal Cannula Weight: 152 lb 1.903 oz Body Mass Index (BMI) 23.8 Intake & Output: Intake and Output for Last 24 Hours 05/13/23 05/14/23 05/15/23 23:59 23:59 23:59 Intake Total 650 / 650 1940 / 1940 50 / 50 Output Total 1250 / 1250 2150 / 2400 750 / 750 Balance -600 / -600 -210 / -460 -700 / -700 Lab / Micro Data Attestation: I reviewed the patient's lab results. 05/16/23 08:00 05/16/23 08:00 Labs: Laboratory Results - last 24 hr 05/15/23 08:39: Vancomycin Trough 3.8 L Micro: Microbiology 05/13/23 13:00 Tissue - Knee Gram Stain - Final 05/13/23 13:00 Tissue - Knee Wound Culture - Final Staphylococcus aureus 05/13/23 13:00 Tissue - Knee Anaerobic Culture - Preliminary 05/13/23 13:00 Tissue - Ankle Gram Stain - Final 05/13/23 13:00 Tissue - Ankle Wound Culture - Preliminary Gram Positive Cocci 05/13/23 13:00 Tissue - Ankle Anaerobic Culture - Preliminary Physical Exam Narrative General - Alert and Oriented HEENT - PERRL. EOMI. Neck - Supple and nontender. Abdomen - Soft and nondistended. Left flank dressing dry. Extremities - Operative dressings are dry. Will look at skin grafts on Wednesday. FROM. No axillary adenopathy. Radial pulses are palpable. Neuro - CN II-XII grossly intact. Psych - Normal mood and affect. Assessment & Plan Assessment/Plan (1) Non-pressure chronic ulcer of other part of left lower leg with fat layer exposed: (2) Squamous cell carcinoma of left lower leg: (3) Non-pressure chronic ulcer of right ankle with fat layer exposed: (4) Squamous cell carcinoma of right lower leg: (5) Family history of skin cancer: (6) History of MRSA infection: (7) Former smoker: PLAN: Plan Patient's operative dressings are dry. Will take down the skin graft dressings on Wednesday to assess the skin grafts. Patient was having trouble with standing. Needed two people during PT assessment. Temporary placement is being evaluated. Should have answer on Wednesday. She has not been out of bed yet. Talked to the nurse that she needs to get out of bed and assist with walking in the room first and getting in a chair. Sometimes the unsteadiness could be due to being in bed and how quickly muscle strength decreases in the legs in a short period of time. If she does ok in the room, the next step is ambulating with assist in the hallway. She can also try and use the walker in the room. She states she has a walker at home that she uses. So PT can reassess on Wednesday. If she is still unsteady on her feet, then will send the patient to the ECF for a little while until she is more steady on her feet with ambulation. She has a norris catheter. It is not bothering her at this time. Will keep it in place until Wednesday then remove it. Operative cultures show Staphylococcus aureus. She is on Vancomycin and Levaquin.
--- NOTE | 2023-05-15 11:29 | PCM.RX.CS ---
Consult Antibiotic Management Pharmacy has been consulted to manage selected antiobiotic: Vancomycin Type of Intervention Type of Consult: Follow-up Suspected Infection Suspected Infection: Other (SURGICAL SITE INFECTION) Prior Doses of Antibiotics Prior Doses of Antibiotics Received/Current Regimen: Currently on 750mg iv q24h. Labs Labs: Sodium 136 mmol/L (136-145) 05/14/23 05:51 Potassium 4.1 mmol/L (3.5-5.1) 05/14/23 05:51 Chloride 104 mmol/L (98-107) 05/14/23 05:51 Carbon Dioxide 28.0 mmol/L (21.0-32.0) 05/14/23 05:51 Anion Gap 4 (5-15) L 05/14/23 05:51 BUN 17 mg/dL (7-18) 05/14/23 05:51 Creatinine 0.69 mg/dL (0.55-1.02) 05/14/23 05:51 Est GFR (MDRD) Af Amer 103 mL/min (>60) 05/14/23 05:51 Est GFR (MDRD) Non-Af 86 mL/min (>60) 05/14/23 05:51 BUN/Creatinine Ratio 24.6 RATIO (10-20) H 05/14/23 05:51 Glucose 108 mg/dL (74-106) H 05/14/23 05:51 Vancomycin Trough 3.8 ug/mL (5.0-15.0) L 05/15/23 08:39 Microbiology Microbiology: Microbiology 05/13/23 13:00 Tissue - Knee Gram Stain - Final 05/13/23 13:00 Tissue - Knee Wound Culture - Final Staphylococcus aureus 05/13/23 13:00 Tissue - Knee Anaerobic Culture - Preliminary 05/13/23 13:00 Tissue - Ankle Gram Stain - Final 05/13/23 13:00 Tissue - Ankle Wound Culture - Preliminary Gram Positive Cocci 05/13/23 13:00 Tissue - Ankle Anaerobic Culture - Preliminary Dosing Weight Weight used for dosin kg Estimated Creatinine Clearance Estimated Creatinine Clearance: 40ml/min Goal Trough Goal Trough: 10-15 mcg/mL Pharmacy Plan for Drug Dosing Pharmacy Plan for Drug Dosing: Trough today low at 3.8. Recommend changing dose to 750mg iv q12h. New trough ordered for before another 4th dose per policy. Pharmacy Service will continue to monitor and adjust dosing as required. Follow-Up Labs Follow-Up Labs: Trough: Vancomycin (10.22.23 2130 before 2200 dose)
--- NOTE | 2023-05-15 12:03 | PN_ITS ---
Subjective Subjective Patient seen and examined. Her daughter was by her bedside. She had no active complaints. She had an uneventful night. She had difficulty with catheter insertion yesterday, and there is concern about her ability to pass urine. She denies any burning with urination, fever or chills or any other symptoms. She has remained hemodynamically stable. Objective Data Objective Data Vital Signs: Vital Signs Temp Pulse Resp BP Pulse Ox O2 Del Method O2 Flow Rate 97.9 F 71 14 131/72 H 97 Nasal Cannula 3 05/15/23 09:10 05/15/23 09:10 05/15/23 09:10 05/15/23 09:10 05/15/23 09:10 05/15/23 09:10 05/15/23 09:10 Oxygen Flow Rate (L/min) 3 Oxygen Delivery Method Nasal Cannula Weight: 152 lb 1.903 oz Body Mass Index (BMI) 23.8 Intake & Output: Intake and Output for Last 24 Hours 05/13/23 05/14/23 05/15/23 23:59 23:59 23:59 Intake Total 650 / 650 1940 / 1940 50 / 50 Output Total 1250 / 1250 2150 / 2400 1450 / 1450 Balance -600 / -600 -210 / -460 -1400 / -1400 Lab / Micro Data 05/14/23 05:51 05/14/23 05:51 Labs: Laboratory Results - last 24 hr 05/15/23 08:39: Vancomycin Trough 3.8 L Micro: Microbiology 05/13/23 13:00 Tissue - Knee Gram Stain - Final 05/13/23 13:00 Tissue - Knee Wound Culture - Final Staphylococcus aureus 05/13/23 13:00 Tissue - Knee Anaerobic Culture - Preliminary 05/13/23 13:00 Tissue - Ankle Gram Stain - Final 05/13/23 13:00 Tissue - Ankle Wound Culture - Preliminary Gram Positive Cocci 05/13/23 13:00 Tissue - Ankle Anaerobic Culture - Preliminary Physical Exam Const alert, oriented x3 and no apparent distress General Appearance: cooperative HEENT normocephalic, head/scalp atraumatic, moist oral mucous membranes and oropharynx normal Eyes PERRL and EOMs intact bilaterally Neck no lymphadenopathy, supple and no JVD Lymph Lymphatic: no lymphadenopathy noted and no lymphedema noted Resp normal respiratory effort, normal air movement and clear to auscultation bilaterally Cardio regular rate, regular rhythm, S1 normal heart sound, S2 normal heart sound, no murmurs and no rub GI normal to inspection, nondistended, normoactive bowel sounds, soft to palpation, non-tender and non-distended Extremity Extremity Narrative: bandage in place over lower extremities bilaterally General Extremity: no tenderness to palpation of joints or extremities Skin Wound Narrative: as under extremities Neuro CN's II-XII intact bilaterally and no focal motor deficits Motor Exam: general weakness Psych thought process normal, cooperative and affect normal Appearance: appropriate Assessment & Plan Assessment/Plan (1) Squamous cell carcinoma of right lower leg: (2) Hypertension: (3) Non-pressure chronic ulcer of right ankle with fat layer exposed: PLAN: Plan #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 Management as per plastic surgery. * On IV vancomycin and Levaquin. Plastic surgery. Wound care on board. PT OT on board. * #?urine retention * Patient apparently had a difficult Carias catheterization in the OR. * recommend urology consult if there are still concerns with the Carias, but will defer to primary service about this * Carias catheter still in place * #COPD and asthma: Not in exacerbation. Breathing treatments bronchodilators. #Anxiety and depression: Trazodone nightly. #Paroxysmal A-fib: Not on any medication. On Eliquis. #Hypertension: On amlodipine. IV hydralazine as needed. #Hyperlipidemia: On statin. #Rheumatoid arthritis: On hydroxychloroquine and folic acid. #Restless leg syndrome: On pramipexole #GERD: On PPI. DVT prophylaxis: To resume Eliquis when okay with plastic surgery.
[2023-05-15] MEDS: Albuterol 2.5 MG/3 ML VIAL.NEB. INHALATION (19:44)
[2023-05-15] MEDS: Acetaminophen 325 MG Tablet 650 MG PO (21:34)
[2023-05-15] MEDS: traZODone 50 MG Tablet PO (21:35)
[2023-05-15] MEDS: Pramipexole Di-HCl 1 MG Tablet PO (21:35)
[2023-05-15] MEDS: Ferrous Sulfate 325 MG Tablet PO (21:35)
[2023-05-16] VITALS (8 sets, daily range): BP systolic 120–157; BP diastolic 52–71; PULSE 68–84; RESP 16–20; TEMP 36.5–36.9; O2SAT 93–96
[2023-05-16] MEDS: Ipratropium/Albuterol Sulfate 3 ML AMPUL.NEB INHALATION ×3 (07:44→19:30)
[2023-05-16 08:19] LABS: Absolute Lymphocyte Count 2.24 X10^3/uL (0.83-4.51); Absolute Neutrophil Count 5.1 X10^3/uL (2.0-7.7); Basophil# 0.06 X10^3/uL; Basophil% 0.7 % (0-1); Eosinophil# 0.42 X10^3/uL; Hematocrit 40.5 % (37-47); Hemoglobin 12.4 g/dL (12.0-15.0); Lymphocyte # 2.24 X10^3/ul (0.83-4.51); Lymphocyte % 26.9 % (19-41); Mean Corp Hgb Conc 30.6 g/dL (32-36); Mean Corpuscular Hgb 33.3 pg (27.0-32.0); Mean Corpuscular Volume 108.9 fL (81-99); Mean Platelet Vol. 9.6 fl (6.2-12.0); Monocyte# 0.52 X10^3/uL; Monocyte% 6.2 % (0-10); NRBC Flagged by Analyzer 0 % (0-5); Neutrophil # 5.06 X10^3/uL (2.7-7.7); Neutrophil % 60.8 % (47-70); Platelet Count 158 K/mm3 (150-450); RBC Distribution Width CV 13.2 % (11.6-14.6); Red Blood Count 3.72 M/mm3 (4.2-5.4); White Blood Count 8.3 K/mm3 (4.4-11.0)
[2023-05-16 08:32] LABS: Anion Gap 5 (5-15); BUN 19 mg/dL (7-18); BUN/Creat Ratio 36.4 RATIO (10-20); Calcium,Total 8.6 mg/dL (8.5-10.1); Chloride 108 mmol/L (98-107); Creatinine, Serum 0.52 mg/dL (0.55-1.02); EST Glomerular Filtration Rate 118 mL/min (>60); Est Glom Filt Rate - Afr Amer 143 mL/min (>60); Glucose 100 mg/dL (74-106); Potassium 3.8 mmol/L (3.5-5.1); Sodium Level 140 mmol/L (136-145)
[2023-05-16] MEDS: Hydroxychloroquine 200 MG Tablet PO ×2 (09:23→16:07)
[2023-05-16] MEDS: Mirabegron 25 MG TAB.ER.24H PO (09:23)
[2023-05-16] MEDS: amLODIPine 2.5 MG Tablet PO (09:23)
[2023-05-16] MEDS: Docusate Sodium 100 MG Capsule PO ×2 (09:23→21:13)
[2023-05-16] MEDS: Magnesium Chloride 64 MG Delay Rel.Tablet 128 MG PO ×2 (09:23→21:14)
[2023-05-16] MEDS: Heparin Injection (Vial) 5,000 UNIT/ML VIAL 5000 UNIT SC (09:23)
[2023-05-16] MEDS: Multivitamins,Ther W-Minerals Tablet 1 TABLET PO (09:23)
[2023-05-16] MEDS: Pantoprazole Sodium 40 MG Tablet PO (09:23)
[2023-05-16] MEDS: Juven (unflavored) Packet 1 PACKET PO ×2 (09:23→16:07)
[2023-05-16] MEDS: levoFLOXacin IV 250 MG/50 ML BAG 50 MG IV (09:24)
[2023-05-16] MEDS: 0.9% Normal Saline (250mL Bag) 250 ML 15 ML IV (09:43)
[2023-05-16] MEDS: 0.9% Saline Lock 10 ML Syringe IV (10:18)
[2023-05-16] MEDS: Vancomycin HCl 750 MG in 0.9% Normal Saline (250mL Bag) 250 ML 250 MG IV (10:55)
[2023-05-16] MEDS: Atorvastatin Calcium 10 MG Tablet PO (11:54)
[2023-05-16] MEDS: Pramipexole Di-HCl 0.5 MG Tablet PO (11:54)
[2023-05-16] MEDS: Folic Acid 1 MG Tablet 2 MG PO (11:55)
--- NOTE | 2023-05-16 12:23 | PN_ITS ---
Subjective Subjective Patient seen and examined. She had no active complaints and she felt well. She had an uneventful night. Review of systems is otherwise negative. Objective Data Objective Data Vital Signs: Vital Signs Temp Pulse Resp BP Pulse Ox O2 Del Method O2 Flow Rate 98 F 77 18 157/71 H 96 Room Air 3 05/16/23 10:00 05/16/23 10:00 05/16/23 10:00 05/16/23 10:00 05/16/23 10:00 05/16/23 10:00 05/15/23 15:00 Oxygen Flow Rate (L/min) 3 Oxygen Delivery Method Room Air Weight: 152 lb 1.903 oz Body Mass Index (BMI) 23.8 Intake & Output: Intake and Output for Last 24 Hours 05/14/23 05/15/23 05/16/23 23:59 23:59 23:59 Intake Total 1940 / 1940 580 / 580 930.25 / 930.25 Output Total 2150 / 2400 1450 / 1775 800 / 800 Balance -210 / -460 -870 / -1195 130.25 / 130.25 Lab / Micro Data 05/16/23 08:00 05/16/23 08:00 Labs: Laboratory Results - last 24 hr 05/16/23 08:00: WBC 8.3, RBC 3.72 L, Hgb 12.4, Hct 40.5, MCV 108.9 H, MCH 33.3 H , MCHC 30.6 L, RDW Std Deviation 53.0 H, RDW Coeff of Calvin 13.2, Plt Count 158, M PV 9.6, Immature Gran % (Auto) 0.400, Neut % (Auto) 60.8, Lymph % (Auto) 26.9, Whitman % (Auto) 6.2, Eos % (Auto) 5.0, Baso % (Auto) 0.7, Absolute Neuts (auto) 5.1, Absolute Lymphs (auto) 2.24, Nucleated RBC % 0, Sodium 140, Potassium 3.8, Chloride 108 H, Carbon Dioxide 27.0, Anion Gap 5, BUN 19 H, Creatinine 0.52 L, Estim Creat Clear Calc 40.00, Est GFR (MDRD) Af Amer 143, Est GFR (MDRD) Non-Af 118, BUN/Creatinine Ratio 36.4 H, Glucose 100, Calcium 8.6 Micro: Microbiology 05/13/23 13:00 Tissue - Ankle Gram Stain - Final 05/13/23 13:00 Tissue - Ankle Wound Culture - Final Staphylococcus aureus Staphylococcus capitis 05/13/23 13:00 Tissue - Knee Gram Stain - Final 05/13/23 13:00 Tissue - Knee Wound Culture - Final Staphylococcus aureus 05/13/23 13:00 Tissue - Knee Anaerobic Culture - Preliminary Physical Exam Const alert, oriented x3 and no apparent distress General Appearance: cooperative HEENT normocephalic, head/scalp atraumatic, moist oral mucous membranes and oropharynx normal Eyes PERRL and EOMs intact bilaterally Neck no lymphadenopathy, supple and no JVD Lymph Lymphatic: no lymphadenopathy noted and no lymphedema noted Resp normal respiratory effort, normal air movement and clear to auscultation bilaterally Cardio regular rate, regular rhythm, S1 normal heart sound, S2 normal heart sound, no murmurs and no rub GI normal to inspection, nondistended, normoactive bowel sounds, soft to palpation, non-tender and non-distended Extremity Extremity Narrative: bandage in place over lower extremities bilaterally General Extremity: no tenderness to palpation of joints or extremities Skin Wound Narrative: as under extremities Neuro CN's II-XII intact bilaterally and no focal motor deficits Motor Exam: general weakness Psych thought process normal, cooperative and affect normal Appearance: appropriate Assessment & Plan Assessment/Plan (1) Squamous cell carcinoma of right lower leg: (2) Hypertension: (3) Non-pressure chronic ulcer of right ankle with fat layer exposed: PLAN: Plan #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 Management as per plastic surgery. * On IV vancomycin and Levaquin. Plastic surgery. Wound care on board. PT OT on board. * #?urine retention * Patient apparently had a difficult Carias catheterization in the OR. * recommend urology consult if there are still concerns with the Carias, but will defer to primary service about this * Carias catheter still in place * #COPD and asthma: Not in exacerbation. Breathing treatments bronchodilators. #Anxiety and depression: Trazodone nightly. #Paroxysmal A-fib: on eliquis, which remains on hold. Currently rate and rhythm controlled. #Hypertension: On amlodipine. IV hydralazine as needed. #Hyperlipidemia: On statin. #Rheumatoid arthritis: On hydroxychloroquine and folic acid. #Restless leg syndrome: On pramipexole #GERD: On PPI. DVT prophylaxis: To resume Eliquis when okay with plastic surgery. Currently on heparin Disposition: awaiting placement Charges/Coding Visit Charges Inpatient E&M: 93215 Subs Hosp L2
[2023-05-16] MEDS: Acetaminophen 325 MG Tablet 650 MG PO (16:06)
[2023-05-16] MEDS: Budesonide Respules 0.5 MG/2 ML AMPUL.NEB. INHALATION (19:30)
[2023-05-16] MEDS: traZODone 50 MG Tablet PO (21:13)
[2023-05-16] MEDS: Ferrous Sulfate 325 MG Tablet PO (21:13)
[2023-05-16] MEDS: Pramipexole Di-HCl 1 MG Tablet PO (21:14)
[2023-05-16] MEDS: APIXABAN 2.5 MG TABLET (WCH) PO (21:14)
[2023-05-16 22:07] LABS: Vancomycin, Trough Level 10.1 ug/mL (5.0-15.0)
--- NOTE | 2023-05-16 22:15 | PCM.RX.CS ---
Consult Antibiotic Management Pharmacy has been consulted to manage selected antiobiotic: Vancomycin Type of Intervention Type of Consult: Follow-up Labs Labs: Sodium 140 mmol/L (136-145) 05/16/23 08:00 Potassium 3.8 mmol/L (3.5-5.1) 05/16/23 08:00 Chloride 108 mmol/L (98-107) H 05/16/23 08:00 Carbon Dioxide 27.0 mmol/L (21.0-32.0) 05/16/23 08:00 Anion Gap 5 (5-15) 05/16/23 08:00 BUN 19 mg/dL (7-18) H 05/16/23 08:00 Creatinine 0.52 mg/dL (0.55-1.02) L 05/16/23 08:00 Est GFR (MDRD) Af Amer 143 mL/min (>60) 05/16/23 08:00 Est GFR (MDRD) Non-Af 118 mL/min (>60) 05/16/23 08:00 BUN/Creatinine Ratio 36.4 RATIO (10-20) H 05/16/23 08:00 Glucose 100 mg/dL (74-106) 05/16/23 08:00 Vancomycin Trough 10.1 ug/mL (5.0-15.0) 05/16/23 21:35 Microbiology Microbiology: Microbiology 05/13/23 13:00 Tissue - Ankle Gram Stain - Final 05/13/23 13:00 Tissue - Ankle Wound Culture - Final Staphylococcus aureus Staphylococcus capitis 05/13/23 13:00 Tissue - Knee Gram Stain - Final 05/13/23 13:00 Tissue - Knee Wound Culture - Final Staphylococcus aureus 05/13/23 13:00 Tissue - Knee Anaerobic Culture - Preliminary Goal Trough Goal Trough: 10-15 mcg/mL Pharmacy Plan for Drug Dosing Pharmacy Plan for Drug Dosing: Pharmacy Service will continue to monitor and adjust dosing as required. TROUGH 10.1 @ 10.5 HRS. INCREASE TO 1GM Q12H AND FOLLOW UP TROUOGH PRIOR TO 4TH DOSE Follow-Up Labs Follow-Up Labs: Trough: Vancomycin Date/Time Labs Ordered Labs to be done on [date and time ordered]: 05/18 @ 0982
[2023-05-16] MEDS: Vancomycin Trough/Random Due 1 LAB MC (22:38)
[2023-05-16] MEDS: Vancomycin IV 1,000 MG/200 ML BAG 200 MG IV (22:38)
[2023-05-17 01:57] VITALS: BP 148/61; PULSE 72; RESP 14; TEMP 36.6; O2SAT 95
[2023-05-17] MEDS: Ipratropium/Albuterol Sulfate 3 ML AMPUL.NEB INHALATION ×2 (07:08→19:13)
[2023-05-17] MEDS: Budesonide Respules 0.5 MG/2 ML AMPUL.NEB. INHALATION ×2 (07:08→19:13)
[2023-05-17 07:09] VITALS: PULSE 80; RESP 18
[2023-05-17] MEDS: levoFLOXacin IV 250 MG/50 ML BAG 50 MG IV (08:32)
--- NOTE | 2023-05-17 08:43 | PCM.PN.HOSP ---
Reason for Visit Reason for Visit: Diagnoses Squamous cell carcinoma of skin of right lower limb, including hip (05/14/23) Squamous cell carcinoma of skin of left lower limb, including hip (05/14/23) Other acute postprocedural pain (05/14/23) Essential (primary) hypertension (05/14/23) Unspecified atrial fibrillation (05/14/23) Chronic obstructive pulmonary disease, unspecified (05/14/23) Non-pressure chronic ulcer of right ankle with fat layer exposed (05/14/23) Non-pressure chronic ulcer of other part of left lower leg with fat layer exposed (05/14/23) Unspecified osteoarthritis, unspecified site (05/14/23) Other malaise (05/14/23) Localized edema (05/14/23) Other complications of procedures, not elsewhere classified, initial encounter (05/14/23) Family history of malignant neoplasm of other organs or systems (05/14/23) Personal history of other malignant neoplasm of skin (05/14/23) Personal history of Methicillin resistant Staphylococcus aureus infection (05/14/23) Personal history of other diseases of the circulatory system (05/14/23) Personal history of nicotine dependence (05/14/23) Presence of cardiac pacemaker (05/14/23) Subjective Subjective As well. No events. Objective Data Objective Data Vital Signs: Vital Signs Temp Pulse Resp BP Pulse Ox O2 Del Method O2 Flow Rate 36.6 C 80 18 148/61 H 95 Room Air 3 05/17/23 01:57 05/17/23 07:09 05/17/23 07:09 05/17/23 01:57 05/17/23 01:57 05/17/23 07:09 05/15/23 15:00 Oxygen Flow Rate (L/min) 3 Oxygen Delivery Method Room Air Weight: 69 kg Body Mass Index (BMI) 23.8 Intake & Output: Intake and Output for Last 24 Hours 05/15/23 05/16/23 05/17/23 23:59 23:59 23:59 Intake Total 580 / 580 1110.25 / 1140.25 230 / 230 Output Total 1450 / 1775 1350 / 1775 1225 / 1225 Balance -870 / -1195 -239.75 / -634.75 -995 / -995 Lab / Micro Data 05/16/23 08:00 05/16/23 08:00 Labs: Laboratory Results - last 24 hr 05/16/23 21:35: Vancomycin Trough 10.1 Micro: Microbiology 05/13/23 13:00 Tissue - Ankle Gram Stain - Final 05/13/23 13:00 Tissue - Ankle Wound Culture - Final Staphylococcus aureus Staphylococcus capitis 05/13/23 13:00 Tissue - Ankle Anaerobic Culture - Final Anaerobic cocci 05/13/23 13:00 Tissue - Knee Gram Stain - Final 05/13/23 13:00 Tissue - Knee Wound Culture - Final Staphylococcus aureus 05/13/23 13:00 Tissue - Knee Anaerobic Culture - Final No anaerobic bacteria isolated. 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 Management as per plastic surgery. On IV vancomycin and Levaquin. Plastic surgery. Wound care on board. PT OT on board. Wound culture showing MSSA. (2) Urinary retention: PLAN: Catheter placed postoperatively. Will DC the catheter and check postvoid residual. I suspect its probably related with the anesthesia and/or pain medications. PLAN: Plan Chronic conditions: COPD and asthma: Not in exacerbation. Breathing treatments bronchodilators. Anxiety and depression: Trazodone nightly. Paroxysmal A-fib: on eliquis, which remains on hold. Currently rate and rhythm controlled. Hypertension: On amlodipine. IV hydralazine as needed. Hyperlipidemia: On statin. Rheumatoid arthritis: On hydroxychloroquine and folic acid. Restless leg syndrome: On pramipexole GERD: On PPI. DVT prophylaxis: To resume Eliquis when okay with plastic surgery. Currently on heparin Disposition: awaiting placement Medically stable for discharge. Charges/Coding Visit Charges Inpatient E&M: 70462 [facility] L1
--- NOTE | 2023-05-17 08:54 | CASEMGMT ---
Discharge Planning Referral sent via [facility] to [facility]. Maribeth Dennison, Discharge Planning Asst.
[2023-05-17 09:17] VITALS: BP 151/55; PULSE 69; RESP 18; TEMP 36.6; O2SAT 96
[2023-05-17] MEDS: Juven (unflavored) Packet 1 PACKET PO ×2 (09:58→17:51)
[2023-05-17] MEDS: Vancomycin IV 1,000 MG/200 ML BAG 200 MG IV (09:58)
[2023-05-17] MEDS: APIXABAN 2.5 MG TABLET (WCH) PO ×2 (09:59→20:05)
[2023-05-17] MEDS: Docusate Sodium 100 MG Capsule PO ×2 (09:59→20:05)
[2023-05-17] MEDS: amLODIPine 2.5 MG Tablet PO (09:59)
[2023-05-17] MEDS: Magnesium Chloride 64 MG Delay Rel.Tablet 128 MG PO ×2 (09:59→20:05)
[2023-05-17] MEDS: Multivitamins,Ther W-Minerals Tablet 1 TABLET PO (10:00)
[2023-05-17] MEDS: Hydroxychloroquine 200 MG Tablet PO ×2 (10:00→17:51)
[2023-05-17] MEDS: Pantoprazole Sodium 40 MG Tablet PO (10:00)
[2023-05-17] MEDS: Mirabegron 25 MG TAB.ER.24H PO (10:00)
--- NOTE | 2023-05-17 10:59 | CASEMGMT ---
Discharge Planning Patient has been accepted. SW updated. Maribeth Dennisno, Discharge Planning Asst.
[2023-05-17] MEDS: Pramipexole Di-HCl 0.5 MG Tablet PO (12:52)
[2023-05-17] MEDS: Folic Acid 1 MG Tablet 2 MG PO (12:52)
[2023-05-17] MEDS: Atorvastatin Calcium 10 MG Tablet PO (12:53)
--- NOTE | 2023-05-17 13:21 | CASEMGMT ---
Social Work SW spoke with [facility] and they are able to accept pt when medically ready. [facility] has not made a determination. SW met with pt and informed of the and pt states she prefers to go to [place]. Facilities updated. Physician updated that pt can dc when medically ready. Plan: [place], when medically ready SELENA De La Cruz
--- NOTE | 2023-05-17 13:26 | CASEMGMT ---
Discharge Planning Patient was accepted to [place] which was her first choice. Patient and daughter updated. [facility] also updated. Maribeth Dennison, Discharge Planning Asst.
[2023-05-17] MEDS: oxyCODONE 5 MG Tablet 10 MG PO (16:02)
[2023-05-17] MEDS: Mupirocin Ointment 22gm Tube 1 APPLIC TOPICAL (16:03)
--- NOTE | 2023-05-17 16:35 | PCM.TXEXTCAR ---
Diet Diet Order/Speech Therapy: 05/13/23 13:57 Diet: Regular - General Routine Orders/Code Status Suppository Frequency: Daily PRN (dulcolax 10 mg) Routine Lab Work: CBC (in one week) and BMP (in one week) Code Status: Full Code Wound(s) R ANKLE: Wound Type: Surgical Incision (excision squamous cell carcinoma with skin grafting) Dressing Change: Dry Sterile Dressing (apply Xeroform gauze to the skin graft followed by bactroban ointment and 4x4 gauze, kerlix gauze and 4 in mary ellen wrap every other day) LEFT MEDIAL KNEE: Wound Type: Surgical Incision (excision squamous cell carcinoma with skin grafting) Dressing Change: Dry Sterile Dressing (apply Xeroform gauze to the skin graft followed by bactroban ointment and 4x4 gauze, kerlix gauze and 4 in mary ellen wrap every other day) ABD: Wound Type: Surgical Incision (lower anterior abdominal wall donor incision from previous skin grafting) Abdomen LLQ: Wound Type: Surgical Incision (left flank donor incision from recent skin grafting) Dressing Change: Dry Sterile Dressing (as needed) Suggestions for Active Care Hours to sit in a chair: 2 Times a day to sit in chair: 4 Therapies Weight Bearing: Full weight bearing Extremity Affected:: Left Lower (unsteady on her feet with ambulation) and Right Lower (unsteady on her feet with ambulation) Physical Therapy: Eval and Treat (unsteady on her feet with ambulation) Problem/Diagnosis (1) Non-pressure chronic ulcer of other part of left lower leg with fat layer exposed: Status: Chronic Code(s): L97.822 - Non-pressure chronic ulcer of other part of left lower leg with fat layer exposed Comment: 3 cm painful nonhealing squamous cell carcinoma ulcer left medial knee (2) 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 Code(s): C44.729 - Squamous cell carcinoma of skin of left lower limb, including hip Comment: 3 cm painful nonhealing squamous cell carcinoma ulcer left medial knee (3) 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 Code(s): L97.312 - Non-pressure chronic ulcer of right ankle with fat layer exposed Comment: 2.5 cm painful nonhealing squamous cell carcinoma ulcer right medial ankle (4) Squamous cell carcinoma of right lower leg: Status: Acute Code(s): C44.722 - Squamous cell carcinoma of skin of right lower limb, including hip Comment: 2.5 cm painful nonhealing squamous cell carcinoma ulcer right medial ankle 2 cm squamous cell carcinoma right medial leg 2 cm squamous cell carcinoma right medial leg (5) Personal history of skin cancer: Status: Chronic Code(s): Z85.828 - Personal history of other malignant neoplasm of skin (6) History of MRSA infection: Status: Chronic Code(s): Z86.14 - Personal history of Methicillin resistant Staphylococcus aureus infection (7) Urinary retention: Status: Acute Code(s): R33.9 - Retention of urine, unspecified (8) Physical debility: Status: Acute Code(s): R53.81 - Other malaise (9) Former smoker: Status: Chronic Code(s): Z87.891 - Personal history of nicotine dependence (10) Hx of cardiac pacemaker: Status: Chronic Code(s): Z95.0 - Presence of cardiac pacemaker (11) History of CHF (congestive heart failure): Status: Chronic Code(s): Z86.79 - Personal history of other diseases of the circulatory system (12) Chronic venous insufficiency: Status: Chronic (13) History of methotrexate therapy: Status: Chronic Code(s): Z92.21 - Personal history of antineoplastic chemotherapy Comment: for rheumatoid arthritis (14) On apixaban therapy: Status: Chronic Code(s): Z79.01 - shelter (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 Comment: for atrial fibrillation Plan Patient's operative dressings are dry. Will take down the skin graft dressings on Wednesday to assess the skin grafts. Patient was having trouble with standing. Needed two people during PT assessment. Temporary placement is being evaluated. Should have answer on Wednesday. She has not been out of bed yet. Talked to the nurse that she needs to get out of bed and assist with walking in the room first and getting in a chair. Sometimes the unsteadiness could be due to being in bed and how quickly muscle strength decreases in the legs in a short period of time. If she does ok in the room, the next step is ambulating with assist in the hallway. She can also try and use the walker in the room. She states she has a walker at home that she uses. So PT can reassess on Wednesday. If she is still unsteady on her feet, then will send the patient to the ECF for a little while until she is more steady on her feet with ambulation. She has a norris catheter. It is not bothering her at this time. Will keep it in place until Wednesday then remove it. Operative cultures show Staphylococcus aureus. She is on Vancomycin and Levaquin. Allergies/Procedures Done in Hospital Allergies Sulfa (Sulfonamide Antibiotics) Allergy (Verified 05/13/23 08:35) Hives Procedures: - (05/13/23 - 1. Surgical preparation left medial knee with excision 3 cm painful nonhealing squamous cell carcinoma ulcer and STSG reconstruction from the left flank (20 cm2). 2. Surgical preparation right medial ankle with excision 2.5 cm painful nonhealing squamous cell carcinoma ulcer and STSG r) Type of Care/Length of Stay Estimated LOS: Convalescent Care Less Than 30 days Type of Care Needed: Skilled Rehab Potential: Fair Prognosis: Fair Additional Orders/Day of Discharge H&P will serve as current which was dated: 05/13/23 Day of Discharge: 05/17/23 Dietary and Speech Recommendations Dietitian Recommendations/Changes: Will continue liberal regular diet and add 4 oz ensure clear tid w/ medpass for increased nutrition if consumed. Follow Up Care Please Follow Up With: Luis F Bergman MD When: wednesday05/25/23. call [phone] for appt time. Discharge Plan Admission Admit Date/Time: 05/14/23 14:44 Primary Reason for Your Visit: excision SCC rt medial ankle and lt medial knee with skin grafting Attending Provider: Luis F Bergman Primary Care Provider: Carson Kennedy Consulting Providers: Isaura Duncan; Luis F Bergman; Dedrick Miranda Discharge Orders/Prescriptions Prescriptions: New amoxicillin-pot clavulanate [Augmentin] 500-125 mg tablet 1 tab PO TID 37 Days Qty: 111 0RF Continued amlodipine 2.5 mg tablet 2.5 mg PO DAILY trazodone 50 mg tablet 50 mg PO QHS Rx Instructions: 1/2 tab at bedtime Myrbetriq 25 mg tablet extended release 24 hr 25 mg PO DAILY Eliquis 2.5 mg tablet 2.5 mg PO BID Hold Instructions: Resume on 02/16/23. calcium carbonate 500 MG tablet 250 mg PO BID simvastatin 20 MG tablet 20 mg PO LUNCH aspirin 81 MG tablet,chewable 81 mg PO DAILY@0800 Hold Instructions: Resume on 02/17/23. magnesium 250 MG tablet 400 mg PO BID hydroxychloroquine 200 MG tablet 200 mg PO BIDCM Centrum Silver 1 EACH tablet 1 ea PO DAILY Probiotic 1 EACH capsule 1 ea PO DAILY omeprazole 20 mg capsule,delayed release(DR/EC) 40 mg PO DAILY folic acid 1 mg Tablet 2 mg PO LUNCH cholecalciferol (vitamin D3) [Vitamin D3] 50 mcg (2,000 unit) Capsule 50 mcg PO DAILY Trelegy Ellipta 200-62.5-25 mcg Blister With Device 1 inh INHALATION DAILY pramipexole 1 mg tablet 1 mg PO QHS Rx Instructions: 0.5 tab po qam, 1 tab po qpm docusate sodium [Colace] 100 mg capsule 100 mg PO BID Qty: 60 0RF pramipexole 1 mg Tablet 0.5 mg PO LUNCH albuterol sulfate 1.25 mg/3 mL Solution For Nebulization 1.25 mg INHALATION PRN PRN (Reason: SOB) albuterol sulfate 90 mcg/actuation Hfa Aerosol Inhaler 1 inh INHALATION Q6H PRN (Reason: SOB) oxycodone-acetaminophen [Percocet] 5-325 mg tablet 1 tab PO Q6H PRN (Reason: pain (scale score 7-10)) 7 Days Qty: 28 0RF Rx Instructions: 28 tabs (twenty-eight) ferrous sulfate [Feosol] 325 mg (65 mg iron) tablet 325 mg PO QHS L.acidoph,saliva-B.bif-S.therm [Acidophilus Probiotic Blend] 175 mg capsule 1 cap PO DAILY Qty: 30 0RF No Action (DME) oxygen-air delivery systems Device See Rx Instructions .Route Rx Instructions: As directed 3L at night (DME) nebulizer and compressor [Comp-Air Nebulizer Compressor] Device See Rx Instructions .Route Rx Instructions: As directed Referrals / Follow Up: Carson Kennedy MD [Primary Care Provider] - Disposition Disposition (needs filled in before D/C Order can be placed): Care Home Facility
[2023-05-17 17:01] VITALS: BP 153/60; PULSE 72; RESP 17; TEMP 36.8; O2SAT 96
[2023-05-17] MEDS: Amox/Clavulanate 500 MG Tablet PO (17:51)
--- NOTE | 2023-05-17 19:29 | NURSING ---
Report called to Rafa at this time.
--- NOTE | 2023-05-17 19:34 | NURSING ---
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
[2023-05-17 20:00] VITALS: BP 152/77; PULSE 86; RESP 18; TEMP 37.2; O2SAT 96
[2023-05-17] MEDS: traZODone 50 MG Tablet PO (20:05)
[2023-05-17] MEDS: Ferrous Sulfate 325 MG Tablet PO (20:05)
[2023-05-17] MEDS: Pramipexole Di-HCl 1 MG Tablet PO (20:06)
--- NOTE | 2023-05-18 08:54 | CASEMGMT ---
Social Work Pt discharged after SW left for the day. Hospital exemption completed in the [facility] system and [place] notified by d/c nitesh Stahl via [employer]. LAUREN Diaz
--- NOTE | 2023-05-20 23:54 | PCM.DC.SUM ---
Providers Date of Admission: 05/14/23 Date of Discharge: 05/17/23 Primary Care Physician: Dr. Carson Kennedy MD Attending Physician: Dr. Luis F Bergman MD Consultations 05/13/23 14:03 Consult: Hospitalist Routine Consulting Provider: Mikki Lee Reason for Consult: medical management - hypertension, afib EMERGENT Consult: No MD Notified: Yes Date Notified: 05/13/23 Time Notified: 14:50 Method of Notification: Text Method of Consult:: In-Person Other Hospitalist Providers during her hospital stay - Dr. Isaura Duncan MD and Dr. Dedrick Miranda DO. Reason For Visit: Excision carcinoma wounds lt knee and rt ankle Diagnosis Discharge Diagnosis (1) Non-pressure chronic ulcer of other part of left lower leg with fat layer exposed: Status: Chronic Code(s): L97.822 - Non-pressure chronic ulcer of other part of left lower leg with fat layer exposed (2) 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 Code(s): C44.729 - Squamous cell carcinoma of skin of left lower limb, including hip (3) 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 Code(s): L97.312 - Non-pressure chronic ulcer of right ankle with fat layer exposed (4) Squamous cell carcinoma of right lower leg: Status: Acute Code(s): C44.722 - Squamous cell carcinoma of skin of right lower limb, including hip (5) Personal history of skin cancer: Status: Chronic Code(s): Z85.828 - Personal history of other malignant neoplasm of skin (6) History of MRSA infection: Status: Chronic Code(s): Z86.14 - Personal history of Methicillin resistant Staphylococcus aureus infection (7) Urinary retention: Status: Acute Code(s): R33.9 - Retention of urine, unspecified (8) Physical debility: Status: Acute Code(s): R53.81 - Other malaise (9) Former smoker: Status: Chronic Code(s): Z87.891 - Personal history of nicotine dependence (10) Hx of cardiac pacemaker: Status: Chronic Code(s): Z95.0 - Presence of cardiac pacemaker (11) History of CHF (congestive heart failure): Status: Chronic Code(s): Z86.79 - Personal history of other diseases of the circulatory system (12) Chronic venous insufficiency: Status: Chronic (13) History of methotrexate therapy: Status: Chronic Code(s): Z92.21 - Personal history of antineoplastic chemotherapy (14) On apixaban therapy: Status: Chronic Code(s): Z79.01 - detention (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 Plan Patient's operative dressings are dry. Will take down the skin graft dressings on Wednesday to assess the skin grafts. Patient was having trouble with standing. Needed two people during PT assessment. Temporary placement is being evaluated. Should have answer on Wednesday. She has not been out of bed yet. Talked to the nurse that she needs to get out of bed and assist with walking in the room first and getting in a chair. Sometimes the unsteadiness could be due to being in bed and how quickly muscle strength decreases in the legs in a short period of time. If she does ok in the room, the next step is ambulating with assist in the hallway. She can also try and use the walker in the room. She states she has a walker at home that she uses. So PT can reassess on Wednesday. If she is still unsteady on her feet, then will send the patient to the ECF for a little while until she is more steady on her feet with ambulation. She has a norris catheter. It is not bothering her at this time. Will keep it in place until Wednesday then remove it. Operative cultures show Staphylococcus aureus. She is on Vancomycin and Levaquin. Medications at Discharge Home Medications aspirin 81 mg chewable tablet 81 mg PO DAILY@0800 11/03/16 calcium carbonate 500 mg calcium (1,250 mg) tablet 250 mg PO BID 11/03/16 hydroxychloroquine 200 mg tablet 200 mg PO BIDCM 11/03/16 lactobacillus comb no.10 20 billion cell capsule (Probiotic) 1 ea PO DAILY 11/03/16 magnesium 250 mg tablet 400 mg PO BID 11/03/16 dknnodyh-ylb-ctoct acid 0.4 mg-lycopene 300 mcg-lutein 250 mcg tablet (Centrum Silver) 1 ea PO DAILY 11/03/16 simvastatin 20 mg tablet 20 mg PO LUNCH 11/03/16 cholecalciferol (vitamin D3) 50 mcg (2,000 unit) capsule (Vitamin D3) 50 mcg PO DAILY 06/05/22 fluticasone fur. 200 mcg-umeclid 62.5 mcg-vilant 25 mcg inhalat.powder (Trelegy Ellipta) 1 inh inhalation DAILY 06/05/22 folic acid 1 mg tablet 2 mg PO LUNCH 06/05/22 amlodipine 2.5 mg tablet 2.5 mg PO DAILY 07/07/22 mirabegron 25 mg tablet,extended release 24 hr (Myrbetriq) 25 mg PO DAILY 07/07/22 nebulizer and compressor (Comp-Air Nebulizer Compressor) 07/07/22 omeprazole 20 mg capsule,delayed release 40 mg PO DAILY 07/07/22 oxygen-air delivery systems 07/07/22 pramipexole 1 mg tablet 1 mg PO QHS 07/07/22 trazodone 50 mg tablet 50 mg PO QHS 07/07/22 docusate sodium 100 mg capsule (Colace) 100 mg PO BID constipation #60 caps 07/25/22 apixaban 2.5 mg tablet (Eliquis) 2.5 mg PO BID 09/17/22 albuterol sulfate 1.25 mg/3 mL solution for nebulization 1.25 mg inhalation PRN PRN SOB 12/03/22 albuterol sulfate 90 mcg/actuation aerosol inhaler 1 inh inhalation Q6H PRN SOB 12/03/22 pramipexole 1 mg tablet 0.5 mg PO LUNCH 12/03/22 ferrous sulfate 325 mg (65 mg iron) tablet (Feosol) 325 mg PO QHS 02/12/23 L.acidophil,salivari-Bifido bifidum-Strep thermoph 175 mg capsule (Acidophilus Probiotic Blend) 1 cap PO DAILY #30 caps 02/15/23 amoxicillin 500 mg-potassium clavulanate 125 mg tablet (Augmentin) 1 tab PO TID 37 days #111 tabs 05/17/23 oxycodone-acetaminophen 5 mg-325 mg tablet (Percocet) 1 tab PO Q6H PRN pain (scale score 7-10) 7 days #28 tabs 05/17/23 Hospital Course Operations - (05/13/23 - 1. Surgical preparation left medial knee with excision 3 cm painful nonhealing squamous cell carcinoma ulcer and STSG reconstruction from the left flank (20 cm2). 2. Surgical preparation right medial ankle with excision 2.5 cm painful nonhealing squamous cell carcinoma ulcer and STSG ) Procedures None Summary of Care Provided Minutes Spent on Discharge: 35 Hospital Course: 87 year old woman presented with a lesion left medial knee that had increased in size over the last couple of months and developed painful ulceration. 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 Pathology showed a well differentiated invasive squamous cell carcinoma, completely excised. The carcinoma had a depth of 0.5 cm. Postoperatively the surgical incision from a small fluid collection. Wound care was started with Silver dressing changes as well as 2 applications of Thera-skin advanced skin substitute graft. She is planning on radiation therapy to the left lower extremity. It was recommended to proceed with operative debridement followed by skin grafting because of the need for coverage before radiation therapy begins. I have also removed squamous cell carcinomas from her right medial leg, right medial ankle, and left anteromedial leg in June,. In November 2022, I removed a cutaneous horn lesion from her left lateral knee which was actinic keratosis with atypia. She denies fever. She denies trauma. She denies recent infection. She denies any bleeding. Patient was taken to the operating room on 05/13/23 where she underwent surgical preparation left medial knee with excision 3 cm painful nonhealing squamous cell carcinoma ulcer and STSG reconstruction from the left flank (20 cm2) and surgical preparation right medial ankle with excision 2.5 cm painful nonhealing squamous cell carcinoma ulcer and STSG reconstruction from the left flank (17.5 cm2). She tolerated the procedure well. During her hospital stay, she was afebrile. Hospitalist Group was consulted for medical management. Her postop labs were stable with a Hgb of 11.9, Potassium of 4.1, and Prealbumin of 20.9. She was treated with Vancomycin and Levaquin perioperatively. She has a personal history of MRSA. Operative cultures showed Staphylococcus aureus. When the operative culture came back positive for Staphylococcus aureus, we narrowed her antibiotics for discharge with po antibiotics for the Staphylococcus aureus, namely Augmentin. Patient had a norris placed postoperatively because of pressure in the bladder area. She was straight cathed and a large amount of urine was removed. She still wasn't able to go, and a norris catheter was placed and will be left in for few more days. Will remove the norris catheter at the time of discharge. If problems continue, she will need to see a Urologist. As we age, the pelvic floor muscles can weaken and the bladder can drop as well. This changes the anatomy of the bladder as well as the pelvic floor which can disrupt the normal flow of urine. She was also unsteady on her feet with ambulation. Was assisted by PT in determining whether the patient can be discharged home safely or admitted for a few more days, so we can continue her PT as needed at the facility she is being evaluated for ([facility] in [place]). By the 4th postop day, she was a little more steady on her feet and discharging her home at the present time would be problematic since she is there by herself. So she would benefit from a short stay at an Extended Care Facility (ECF). She was accepted at [facility] in [place] and was discharged on the 4th postoperative day. Scripts were sent to the ECF for Augmentin and for Percocet for pain (28 tabs). The ECF can change the skin graft dressings (left medial knee and right medial ankle) every other day. Antibiotic ointment will be applied to the skin graft followed by Xeroform gauze, 4x4 gauze, Kerlix gauze and compression mary ellen wraps. She will keep her legs elevated when sitting. She will need to followup every 3 months for a TBSE. After a couple of years, can decrease the evaluations to every 6 months. Her condition upon discharge is fair. At the ECF, she may resume her Eliquis on 05/18/23. Physical Exam Narrative General - Alert and Oriented HEENT - PERRL. EOMI. Neck - Supple and nontender. Abdomen - Soft and nondistended. Extremities - FROM. No axillary adenopathy. Radial pulses are palpable. No inguinal adenopathy. Dorsalis pedis pulses are palpable. Skin graft dressings changed today. The left medial knee skin graft shows good adherence and 100% take with evidence of vascular ingrowth. The right medial ankle skin graft shows good adherence and 100% take with evidence of vascular ingrowth. The skin grafts were redressed with antibiotic ointment followed by 4x4 gauze and compression mary ellen wraps. The donor area left flank is dry and intact. No clinical evidence of hematoma. Neuro - CN II-XII grossly intact. Psych - Normal mood and affect. Medical Records Data Attestation: I reviewed the patient's medical records Weight / BMI Weight Weight: 152 lb 1.903 oz Body Mass Index (BMI) 23.8 ABG / Lab / Microbiology Data 05/16/23 08:00 05/16/23 08:00 Microbiology: Microbiology 05/13/23 13:00 Tissue - Ankle Gram Stain - Final 05/13/23 13:00 Tissue - Ankle Wound Culture - Final Staphylococcus aureus Staphylococcus capitis 05/13/23 13:00 Tissue - Ankle Anaerobic Culture - Final Anaerobic cocci 05/13/23 13:00 Tissue - Knee Gram Stain - Final 05/13/23 13:00 Tissue - Knee Wound Culture - Final Staphylococcus aureus 05/13/23 13:00 Tissue - Knee Anaerobic Culture - Final No anaerobic bacteria isolated. D/C Instructions Please Follow Up With: Luis F Bergman MD Meaningful Use Info Meaningful Use Diagnoses (Choose all that apply): None applicable Discharge Plan Admission Admit Date/Time: 05/14/23 14:44 Primary Reason for Your Visit: excision SCC rt medial ankle and lt medial knee with skin grafting Attending Provider: Luis F Bergman Primary Care Provider: aCrson Kennedy Consulting Providers: Isaura Duncan; Luis F Bergman; Dedrick Miranda Discharge Orders/Prescriptions Prescriptions: New amoxicillin-pot clavulanate [Augmentin] 500-125 mg tablet 1 tab PO TID 37 Days Qty: 111 0RF Continued amlodipine 2.5 mg tablet 2.5 mg PO DAILY trazodone 50 mg tablet 50 mg PO QHS Rx Instructions: 1/2 tab at bedtime Myrbetriq 25 mg tablet extended release 24 hr 25 mg PO DAILY Eliquis 2.5 mg tablet 2.5 mg PO BID Hold Instructions: Resume on 02/16/23. calcium carbonate 500 MG tablet 250 mg PO BID simvastatin 20 MG tablet 20 mg PO LUNCH aspirin 81 MG tablet,chewable 81 mg PO DAILY@0800 Hold Instructions: Resume on 02/17/23. magnesium 250 MG tablet 400 mg PO BID hydroxychloroquine 200 MG tablet 200 mg PO BIDCM Centrum Silver 1 EACH tablet 1 ea PO DAILY Probiotic 1 EACH capsule 1 ea PO DAILY omeprazole 20 mg capsule,delayed release(DR/EC) 40 mg PO DAILY folic acid 1 mg Tablet 2 mg PO LUNCH cholecalciferol (vitamin D3) [Vitamin D3] 50 mcg (2,000 unit) Capsule 50 mcg PO DAILY Trelegy Ellipta 200-62.5-25 mcg Blister With Device 1 inh INHALATION DAILY pramipexole 1 mg tablet 1 mg PO QHS Rx Instructions: 0.5 tab po qam, 1 tab po qpm docusate sodium [Colace] 100 mg capsule 100 mg PO BID Qty: 60 0RF pramipexole 1 mg Tablet 0.5 mg PO LUNCH albuterol sulfate 1.25 mg/3 mL Solution For Nebulization 1.25 mg INHALATION PRN PRN (Reason: SOB) albuterol sulfate 90 mcg/actuation Hfa Aerosol Inhaler 1 inh INHALATION Q6H PRN (Reason: SOB) oxycodone-acetaminophen [Percocet] 5-325 mg tablet 1 tab PO Q6H PRN (Reason: pain (scale score 7-10)) 7 Days Qty: 28 0RF Rx Instructions: 28 tabs (twenty-eight) ferrous sulfate [Feosol] 325 mg (65 mg iron) tablet 325 mg PO QHS L.acidoph,saliva-B.bif-S.therm [Acidophilus Probiotic Blend] 175 mg capsule 1 cap PO DAILY Qty: 30 0RF No Action (DME) oxygen-air delivery systems Device See Rx Instructions .Route Rx Instructions: As directed 3L at night (DME) nebulizer and compressor [Comp-Air Nebulizer Compressor] Device See Rx Instructions .Route Rx Instructions: As directed Referrals / Follow Up: Carson Kennedy MD [Primary Care Provider] - Disposition Disposition (needs filled in before D/C Order can be placed): Senior Living Facility
== END 2023-05-17 20:15 | disposition skilled nursing facility (03) | DRG 902 ==
LOC: SDC 14:35 → MS3 14:35
PROVIDERS: Student in an Organized Health Care Education/Training Program; Admitting Provider Surgery; PCP Family Medicine; Referring Provider Surgery; Visit Provider Surgery
PROC: 0JBP0ZZ Excision of Left Lower Leg Subcutaneous Tissue and Fascia, Open Approach (ICD-10-PCS; principal; 2023-05-13 09:15)
DX: T81.89XA Other complications of procedures, not elsewhere classified, initial encounter (principal); L97.822 Non-pressure chronic ulcer of other part of left lower leg with fat layer exposed; J96.11 Chronic respiratory failure with hypoxia; L97.312 Non-pressure chronic ulcer of right ankle with fat layer exposed; I11.0 Hypertensive heart disease with heart failure; I50.9 Heart failure, unspecified; I48.0 Paroxysmal atrial fibrillation; G25.81 Restless legs syndrome; C44.722 Squamous cell carcinoma of skin of right lower limb, including hip; J43.9 Emphysema, unspecified; M06.9 Rheumatoid arthritis, unspecified; F32.A Depression, unspecified; D50.9 Iron deficiency anemia, unspecified; E78.00 Pure hypercholesterolemia, unspecified; I87.2 Venous insufficiency (chronic) (peripheral); K21.9 Gastro-esophageal reflux disease without esophagitis; F41.9 Anxiety disorder, unspecified; C44.729 Squamous cell carcinoma of skin of left lower limb, including hip; R33.9 Retention of urine, unspecified; G89.18 Other acute postprocedural pain; Z99.81 Dependence on supplemental oxygen; Z79.01 Long term (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; Z79.82 Long term (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 aspirin; Z87.891 Personal history of nicotine dependence; Z95.0 Presence of cardiac pacemaker; Z86.14 Personal history of Methicillin resistant Staphylococcus aureus infection
CPT/HCPCS: 36415; 51702; 80048; 80202; 82565; 84134; 85025; 85027; 87070; 87075; 87077; 87102; 87176; 87186; 87205; 87206; 88305; 94640; 94668; 97110; 97116; 97162; 97530; J7050; J7120; A4216; J2405

== ENCOUNTER 2023-10-11 11:07 | Outpatient (RCR) | payer MEDICARE, OTHER, SELFPAY ==
[2023-05-26 00:15] VITALS: BP 150/54; PULSE 76; RESP 20; TEMP 36.3
[2023-10-11 11:21] VITALS: BP 160/71; PULSE 71; RESP 20; TEMP 36.8; BMI 25.1
--- NOTE | 2023-10-11 13:25 | PCM.WC.HP ---
History of Present Illness Date of Service: 10/11/23 Chief Complaint: Right medial ankle ulcer History of Wound: 88 year old female who is known to me. She has previously been seen at the wound center for a right medial ankle ulcer secondary to some compromise to the healing skin graft. She has a non healing ulcer on her right medial ankle after her surgery on 05/13/23 where she underwent surgical preparation left medial knee with excision 3 cm painful nonhealing squamous cell carcinoma ulcer and STSG reconstruction from the left flank (20 cm2), which has healed, and Surgical preparation right medial ankle with excision 2.5 cm painful nonhealing squamous cell carcinoma ulcer and STSG reconstruction from the left flank (17.5 cm2). She developed compromise of the right medial ankle skin graft. It has not been healing with conservative treatment in our office, so she is being transferred to the wound center for an advanced skin substitute, such as Epifix. Pathology of ight medial ankle ulcer showed acute and chronic inflammation and granulation tissue reaction, pseudoepitheliomatous hyperplasia, negative for malignancy. The left medial knee non healing ulcer showed extensive ulceration, acute and chronic inflammation and granulation tissue reaction, pseudoepitheliomatous hyperplasia, mirlande elastosis and focal foreign body giant reaction, negative for malignancy. Operative culture from 05/13/23 of right medial ankle positive for Staphylococcus aureus and Staphylococcus capitis and Anaerobic cocci. Left medial knee was positive for Staphylococcus aureus. She has a history of excision of multiple Squamous cell carcinomas, Actinic keratosis, Afib, chronic anticoagulation, CHF, chronic venous insufficiency, rheumatoid arthritis which she used to be on methotrexate. Today she states she feels well and denies fever, chills, nausea and vomiting. Progress of Wound: Right medial ankle ulcer is stable. The wound bed is beefy pink. She would benefit from an advanced wound healing product, such as Epifix to help expedite her healing process. [facility] Medical History Actinic keratosis Ambulates with cane Anxiety Arthritis Asthma Back pain Breast lump Cardiology follow-up encounter Carpal tunnel syndrome Chronic ulcer of right ankle COPD (chronic obstructive pulmonary disease) Cutaneous horn Diarrhea Emphysema, unspecified Former smoker Gastric reflux High cholesterol History of CHF (congestive heart failure) History of echocardiogram History of edema History of hiatal hernia History of methotrexate therapy History of MRSA infection History of pain when walking History of ulceration Hx of cardiac pacemaker Hypertension IBS (irritable bowel syndrome) 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 Loss of hearing Neoplasm of skin of ankle Neoplasm of skin of hand Neoplasm of skin of knee Neoplasm of skin of lower leg Neoplasm of skin of lower leg Non-pressure chronic ulcer of other part of left lower leg with fat layer exposed Non-pressure chronic ulcer of right ankle with fat layer exposed Nonhealing surgical wound On apixaban therapy On home oxygen therapy Open wound Open wound of left knee with complication Osteoarthritis Other complications of skin graft (allograft) (autograft) Personal history of skin cancer Restless legs Rheumatoid arthritis Skin cancer Skin infection of left knee Skin ulcer of left knee with fat layer exposed 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 Unspecified open wound, left knee, initial encounter Unspecified open wound, right knee, initial encounter Walker as ambulation aid Wears glasses Wears partial dentures Home Medications aspirin 81 mg chewable tablet 81 mg PO DAILY@0800 11/03/16 [History Last Taken 05/10/23] calcium carbonate 500 mg calcium (1,250 mg) tablet 250 mg PO BID 11/03/16 [History Last Taken 06/11/22] hydroxychloroquine 200 mg tablet 200 mg PO BIDCM 11/03/16 [History Last Taken 06/04/22] lactobacillus comb no.10 20 billion cell capsule (Probiotic) 1 ea PO DAILY 11/03/16 [History Last Taken 06/11/22] magnesium 250 mg tablet 400 mg PO BID 11/03/16 [History Last Taken 06/11/22] hntxuyzv-vut-lmuxy acid 0.4 mg-lycopene 300 mcg-lutein 250 mcg tablet (Centrum Silver) 1 ea PO DAILY 11/03/16 [History Last Taken Unknown] simvastatin 20 mg tablet 20 mg PO LUNCH 11/03/16 [History Last Taken 06/11/22] cholecalciferol (vitamin D3) 50 mcg (2,000 unit) capsule (Vitamin D3) 50 mcg PO DAILY 06/05/22 [History Last Taken 06/04/22] fluticasone fur. 200 mcg-umeclid 62.5 mcg-vilant 25 mcg inhalat.powder (Trelegy Ellipta) 1 inh inhalation DAILY 06/05/22 [History Last Taken 02/15/23] folic acid 1 mg tablet 2 mg PO LUNCH 06/05/22 [History Last Taken 06/11/22] amlodipine 2.5 mg tablet 2.5 mg PO DAILY 07/07/22 [History Last Taken 05/13/23] mirabegron 25 mg tablet,extended release 24 hr (Myrbetriq) 25 mg PO DAILY 07/07/22 [History Last Taken Unknown] nebulizer and compressor (Comp-Air Nebulizer Compressor) 07/07/22 [History Last Taken Unknown] omeprazole 20 mg capsule,delayed release 40 mg PO DAILY 07/07/22 [History Last Taken 05/13/23] oxygen-air delivery systems 07/07/22 [History Last Taken Unknown] pramipexole 1 mg tablet 1 mg PO QHS 07/07/22 [History Last Taken Unknown] trazodone 50 mg tablet 50 mg PO QHS 07/07/22 [History Last Taken Unknown] apixaban 2.5 mg tablet (Eliquis) 2.5 mg PO BID 09/17/22 [History Last Taken 05/10/23] albuterol sulfate 1.25 mg/3 mL solution for nebulization 1.25 mg inhalation PRN PRN SOB 12/03/22 [History Last Taken Unknown] albuterol sulfate 90 mcg/actuation aerosol inhaler 1 inh inhalation Q6H PRN SOB 12/03/22 [History Last Taken Unknown] pramipexole 1 mg tablet 0.5 mg PO LUNCH 12/03/22 [History Last Taken Unknown] ferrous sulfate 325 mg (65 mg iron) tablet (Feosol) 325 mg PO QHS 02/12/23 [History Last Taken Unknown] imiquimod 5 % topical cream packet 1 applic topical 5XW 6 weeks #30 packets 09/16/23 [Rx Last Taken Unknown] prednisolone 5 mg tablet 5 mg PO BID 10/11/23 [History Last Taken Unknown] Allergy/AdvReac Type Severity Reaction Status Date / Time Sulfa (Sulfonamide Allergy Hives Verified 09/30/23 11:22 Antibiotics) Family History Mother Cancer multiple myeloma, diagnosed later in life Other Arthritis Heart disease High cholesterol Myocardial infarction Osteoarthritis Respiratory disease Surgical History History of excision of lesion History of lumbar laminectomy History of skin graft History of squamous cell carcinoma excision Hx of colonoscopy Hx of left cataract extraction Hx of left knee surgery Hx of right cataract extraction Hx of toe surgery Hx of tonsillectomy Hx of total hip arthroplasty Hx of total hip arthroplasty Social History pets and animals: Yes pets and animals: dog(s) Smoking Status: Former smoker quit date: 07/26/1956 Tobacco: How many years used: 20 alcohol intake: never details: Special Occasions substance use type: does not use what type of physical activity do you participate in: other details: PT 2-3 times a week additional social history: Does Take Aspirin low dose daily ROS Constitutional Constitutional: Denies fever(s), headache(s) or weakness Eyes Eyes: Reports requires corrective lenses ENT HEENT: Reports none Cardiovascular Cardiovascular: Denies chest pain or dyspnea Respiratory/Chest Respiratory/Chest: Denies cough or dyspnea Gastrointestinal Gastrointestinal: Reports none Genitourinary Genitourinary: Reports systems reviewed and no addt'l complaints, except as documented Musculoskeletal Musculoskeletal: Reports as per HPI Integumentary Integumentary: Reports skin ulcer Neurologic Neurologic: Denies dizziness Psychiatric Psychiatric: Reports none Endocrine Endocrinology: Reports none Hematologic/Lymphatic Hematologic/Lymphatic: Reports as per HPI Vital Signs Vital Signs Vital Signs: 10/11/23 11:21 Temperature 98.3 F Temperature Source Temporal Pulse Rate 71 Respiratory Rate 20 H Blood Pressure 160/71 H Blood Pressure Mean 100 Blood Pressure Source Monitor Weight Weight: 155 lb 11.464 oz Body Mass Index (BMI) 25.1 Physical Exam Const alert and oriented x3 General Appearance: cooperative HEENT normocephalic Head and Scalp: atraumatic Eyes General Eye: normal appearance of both eyes Lymph Lymphatic: no lymphedema noted Resp normal respiratory effort, normal air movement and clear to auscultation bilaterally Effort and Inspection: able to speak in complete sentences Cardio regular rate GI soft to palpation and non-tender Extremity normal to inspection and normal capillary refill Skin Skin Narrative: She has some scattered actinic areas on her bilateral dorsal hands that she states she is currently placing Aldara cream on. Wound Narrative: Right medial ankle ulcer is stable. Wound bed is pink. Vangie wound is clear. Neuro oriented x3 Psych mental status grossly normal, thought process normal and cooperative Debridement Note Debridement Note Wound debrided: medial ankle ulcer Laterality: Right Wound Grade/Stage: Grade III Type of Debridement: Excisional debridement Anesthesia Used: 5% Lidocaine Gel Depth: Down to and including healthy tissue and in the subcutaneous layer Percentage of wound debrided: 100 Instrument Used: 5mm curette Tissue Removed: Non viable tissue and slough Severity: Fat Layer Exposed Amount of bleeding with debridement: Mild Bleeding Controlled with: Compression and gauze Patient tolerated procedure: Patient tolerated procedure well Post-Debridement Measurements and Additional Note: Post-Debridement Measurements/Treatment - Nurse 1 - General Ulcer Assessment Start: 10/11/23 11:21 Freq: Status: Active Protocol: ALEX Activity Type Activity Date Activity User E-sign Co-sign Detail Recorded Client Recorded Date Recorded By Document 10/11/23 11:21 DL Desktop 10/11/23 11:36 DL 10/11/23 11:21 - Today's Visit Information Type of service Initial Visit Arrival Mode Ambulatory, Walker Transfer Assistance None Patient Identification Verified (Name & Yes ) Patient Requires Transmission-Based No Precautions Safety Precautions Fall Prevention Height and Weight Height 5 ft 6 in Weight 155 lb 11.464 oz Weight in Pounds 155.7 lbs Weight Measurement Method Estimated by Patient Body Mass Index (BMI) 25.1 BMI Classification Overweight BSA - Gucci 1.80 Vital Signs Temperature (97.8 F-99.1 F) 98.3 F Temperature Source Temporal Pulse Rate (60-100) 71 Pulse Location Monitor Respiratory Rate (12-18) 20 H Respiratory rate source Observation Blood Pressure (90/60-120/80) 160/71 H Blood Pressure Mean 100 Source Monitor Pain Scale: 0-10 Numeric Is Patient Pain Free? Yes Communication Assessment Preferred language Luxembourgish Able to Read Yes Able to Write Yes Communication Tools None Right Hearing Abillity Hard of Hearing ,Use of Hearing Aid Left Hearing Abillity Hard of Hearing ,Use of Hearing Aid Visual Assistive Devices Glasses Teaching Assessment Preferences Verbal,Written Barriers to Learning None Readiness To Learn Fair Willingness to Engage in Self Management Med Activies Readiness to Engage in Self Management Med Activities Anxiety Level Calm Cooperation Cooperative Perception Coherent Interest in Health Problem Asks Questions Education Importance Acknowledges Need Does Patient Smoke tobacco or other No substances Smoking Status Former smoker Is Patient Diabetic No Functional Assessment Recent Decline in Ability to Perform Denies Any Declines Culture/Zoroastrianism/Decontamination Technician Cultural/Zoroastrianism Needs that may affect No Treatment Plan Would you allow our hospital telephone information clerk to No meet you for the purpose of spiritual/ emotional support? Decontamination Technician to contact place of yarsani No Teaching: Wound Center Discharge Instructions -Person Taught Patient Control Swelling with Leg Elevation -Person Taught Patient Dressing Your Wound -Person Taught Patient WC - Nurse 1 - General Ulcer Measurement Start: 10/11/23 11:21 Freq: Status: Active Protocol: Activity Type Activity Date Activity User E-sign Co-sign Detail Recorded Client Recorded Date Recorded By Document 10/11/23 11:21 DL Desktop 10/11/23 11:36 DL 10/11/23 11:21 Wound Center Nurse 1 #14 RIGHT MEDIAL ANKLE -Photo Taken Yes -Classification - Thickness Full Thickness without Exposed Support Structure -Exudate Amt Medium -Exudate Type Serosanguineous -Wound Margin Distinct, Outline Attached -Granulation Amt Large (67-100%) -Granulation Quality Fithian -Necrosis Amt Small (1-33%) -Necrotic Tissue Type Adherent Slough -Structure Exposed N/A -Texture (Vangie-wound Skin Appearance) Scarring -Moisture (Vangie-wound Skin Appearance) Dry/Scaly -Color (Vangie-wound Skin Appearance) Hemosiderin Staining -Temperature (Vangie-wound Skin No Abnormality Appearance) (Pt Warm) -Tenderness on Palpation (Vangie-wound No Skin Appearance) -Ulcer Cleansing Soap and Water -Foul Odor after Cleansing No -Anesthetic Used 5% Lidocaine Gel #15 R Med Ankle -Current Size (cm) - Length 1.8 -Current Size (cm) - Width 0.5 -Current Size (cm) - Depth 0.1 -Total Square Cm 0.90 -Photo Taken Yes -Exudate Amt Medium -Exudate Type Serosanguineous -Wound Margin Distinct, Outline Attached -Granulation Amt Large (67-100%) -Granulation Quality Fithian -Necrosis Amt Small (1-33%) -Necrotic Tissue Type Adherent Slough -Structure Exposed N/A -Texture (Vangie-wound Skin Appearance) Scarring -Moisture (Vangie-wound Skin Appearance) Weeping -Color (Vangie-wound Skin Appearance) Hemosiderin Staining -Temperature (Vangie-wound Skin No Abnormality Appearance) (Pt Warm) -Foul Odor after Cleansing No -Anesthetic Used 5% Lidocaine Gel Right Calf (cm) 33 Right Ankle (cm) 21.8 Left Calf (cm) 33 Left Ankle (cm) 22.5 WC - Nurse 2 - General Ulcer CM Notes Start: 10/11/23 11:21 Freq: Status: Active Protocol: Activity Type Activity Date Activity User E-sign Co-sign Detail Recorded Client Recorded Date Recorded By Document 10/11/23 11:58 Laptop 10/11/23 12:03 10/11/23 11:58 Wound Center Nurse 2 #15 R Med Ankle -Time 11:59 -Correct Patient Yes -Correct Side, Site, Position Yes -Correct Procedure Yes -Procedure Performed Yes -Type of Procedure Debridement -Clinical Debridement Subcutaneous -Tissue Removed Subcutaneous -Post Debridement (cm) - Length 2.1 -Post Debridement (cm) - Width 0.6 -Post Debridement (cm) - Depth 0.1 -Total Square (Post) (cm) 1.26 -Area of Debridement (cm) - Length 2.1 -Area of Debridement (cm) - Width 0.6 -Total Square (Area) (cm) 1.26 -Tunneling No -Undermining/Tunneling No -Circular Undermining No -Wound/Ulcer Outcome Not Healed -Ulcer Cleansing Rinsed/ Irrigated with Saline -Foul Odor after Cleansing No -Bioengineered Tissue No -Bleeding Controlled with Pressure -Treatment Response Procedure Tolerated Well -Offloading No -Debridement - Subq, 1st 20sq cm Yes Pain Scale: 0-10 Numeric Is Patient Pain Free? Yes WC - Nurse 3 - General Ulcer D/C NN Start: 10/11/23 11:21 Freq: Status: Active Protocol: Activity Type Activity Date Activity User E-sign Co-sign Detail Recorded Client Recorded Date Recorded By Document 10/11/23 12:11 KW Desktop 10/11/23 12:12 KW 10/11/23 12:11 Wound Care Center Nurse 3 #15 R Med Ankle -Ulcer Cleansing Rinsed/ Irrigated with Saline -Foul Odor after Cleansing No -Primary Dressing Applied NonAdherent Contact Layer, Optilok 6.5x10, Promogran Chuyita Matter -Optilok 6.5x10 1 -Promogran Chuyita Matter 1 Right -Tubular Bandage Single Layer -Size of Tubigrip Used Size E -Size E ($) 1 Treatment Response Procedure Tolerated Well Pain Scale: 0-10 Numeric Is Patient Pain Free? Yes WC - Visit Discharge Discharge Condition Stable Ambulatory Status Ambulatory, Walker Transportation Private Auto Accompanied by caregiver Charges/Coding Visit Charges Office Visits / Consults: 42405 OV L3 Est 20min (25 modifier) Procedures Integumentary [id number]: [id number] Lian subq tissue 20 sq cm/< Assessment/Plan Assessment/Plan (1) Chronic ulcer of right ankle: CODE(S): L97.319 - Non-pressure chronic ulcer of right ankle with unspecified severity QUALIFIERS: Non-pressure ulcer stage: with fat layer exposed Qualified Code(s): L97.312 - Non-pressure chronic ulcer of right ankle with fat layer exposed (2) Other complications of skin graft (allograft) (autograft): CODE(S): T86.828 - Other complications of skin graft (allograft) (autograft) (3) 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 She has a chronic, non healing ulcer on her right medial ankle that has not been healing with traditional wound care. She would benefit from an advanced skin product such as Epifix for treatment of this area to help expedite her wound healing . Will apply to her insurance company for approval for Epifix. Wound care - Moistened Chuyita covered with [place] SAP daily after washing the area with soap and water. Compression - Single layer tubigrips. Follow up two weeks, since I will be out of town next week.
--- NOTE | 2023-10-18 13:11 | WC ---
3.18.24 RT MED ANKLE
== END 2023-10-24 23:59 | disposition home or self-care (01) ==
LOC: WC 11:07
PROVIDERS: PCP Family Medicine; Referring Provider Nurse Practitioner Family; Visit Provider Nurse Practitioner Family
DX: L97.312 Non-pressure chronic ulcer of right ankle with fat layer exposed (principal); I11.0 Hypertensive heart disease with heart failure; I50.9 Heart failure, unspecified; E78.00 Pure hypercholesterolemia, unspecified; L57.0 Actinic keratosis; Z79.82 Long term (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 aspirin; Z87.891 Personal history of nicotine dependence; Z79.51 Long term (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 inhaled steroids; Z85.828 Personal history of other malignant neoplasm of skin; T86.828 Other complications of skin graft (allograft) (autograft)
CPT/HCPCS: 11042; 99214; G0463

== ENCOUNTER 2023-11-22 09:45 | Outpatient (RCR) | payer MEDICARE, OTHER, SELFPAY ==
[2023-10-25 00:04] VITALS: BP 160/71; PULSE 71; RESP 20; TEMP 36.8; BMI 25.1
[2023-10-25 10:26] VITALS: BP 150/60; PULSE 77; RESP 20; TEMP 36.8; BMI 25.1
--- NOTE | 2023-10-25 12:29 | PCM.WC.PN ---
History of Present Illness Date of Service: 10/25/23 Chief Complaint: Right medial ankle ulcer History of Wound: 88 year old female who is known to me. She has previously been seen at the wound center for a right medial ankle ulcer secondary to some compromise to the healing skin graft. She has a non healing ulcer on her right medial ankle after her surgery on 05/13/23 where she underwent surgical preparation left medial knee with excision 3 cm painful nonhealing squamous cell carcinoma ulcer and STSG reconstruction from the left flank (20 cm2), which has healed, and Surgical preparation right medial ankle with excision 2.5 cm painful nonhealing squamous cell carcinoma ulcer and STSG reconstruction from the left flank (17.5 cm2). She developed compromise of the right medial ankle skin graft. It has not been healing with conservative treatment in our office, so she is being transferred to the wound center for an advanced skin substitute, such as Epifix. Pathology of ight medial ankle ulcer showed acute and chronic inflammation and granulation tissue reaction, pseudoepitheliomatous hyperplasia, negative for malignancy. The left medial knee non healing ulcer showed extensive ulceration, acute and chronic inflammation and granulation tissue reaction, pseudoepitheliomatous hyperplasia, mirlande elastosis and focal foreign body giant reaction, negative for malignancy. Operative culture from 05/13/23 of right medial ankle positive for Staphylococcus aureus and Staphylococcus capitis and Anaerobic cocci. Left medial knee was positive for Staphylococcus aureus. She has a history of excision of multiple Squamous cell carcinomas, Actinic keratosis, Afib, chronic anticoagulation, CHF, chronic venous insufficiency, rheumatoid arthritis which she used to be on methotrexate. She has been approved for Epifix. Today she states she feels well and denies fever, chills, nausea and vomiting. Progress of Wound: Right medial ankle ulcer is slightly smaller. The wound bed is beefy pink. She has been approved for Epifix. Epifix #1 applied today. Her bilateral lower legs are erythematous and edematous. There is no increase in warmth. She moved recently and has been doing more walking than she is used to, plus she is trying to get her apartment in order. She also has not put her compression stockings on for the past couple days. She denies fever, chills, nausea and vomiting. Objective Data Objective Data Vital Signs: Vital Signs Temp Pulse Resp BP 98.2 F 77 20 H 150/60 H 10/25/23 10:26 10/25/23 10:26 10/25/23 10:26 10/25/23 10:26 Weight: 155 lb 11.464 oz Body Mass Index (BMI) 25.1 Charges/Coding Procedures Integumentary 150xxx-152xx: 34589 Skin sub graft trnk/arm/leg Debridement Note Debridement Note Wound debrided: medial ankle ulcer Laterality: Right Wound Grade/Stage: Grade III Type of Debridement: Excisional debridement Anesthesia Used: 5% Lidocaine Gel Depth: Down to and including healthy tissue and in the subcutaneous layer Percentage of wound debrided: 100 Instrument Used: 3mm curette Tissue Removed: Non viable tissue and slough Severity: Fat Layer Exposed Amount of bleeding with debridement: Mild Bleeding Controlled with: Compression and gauze Patient tolerated procedure: Patient tolerated procedure well Post-Debridement Measurements and Additional Note: Post-Debridement Measurements/Treatment - Nurse 1 - General Ulcer Assessment Start: 10/25/23 10:26 Freq: Status: Active Protocol: ALEX Activity Type Activity Date Activity User E-sign Co-sign Detail Recorded Client Recorded Date Recorded By Document 10/25/23 10:26 DL Desktop 10/25/23 10:33 DL 10/25/23 10:26 - Today's Visit Information Type of service Follow-up Visit (Physician/MATERIAL PREPARATION WORKER ) Arrival Mode Ambulatory, Walker Transfer Assistance None Patient Identification Verified (Name & Yes ) Patient Requires Transmission-Based No Precautions Height and Weight Body Mass Index (BMI) 25.1 BMI Classification Overweight Vital Signs Temperature (97.8 F-99.1 F) 98.2 F Temperature Source Temporal Pulse Rate (60-100) 77 Pulse Location Monitor Respiratory Rate (12-18) 20 H Respiratory rate source Observation Blood Pressure (90/60-120/80) 150/60 H Blood Pressure Mean (mm Hg) 90 Source Monitor History Since Last Visit- (Skip if this is Patient's initial visit) Have you changed medications since your No last visit? Any new allergies or adverse reactions No Had a fall/change in ADL's that may No increase risk of falls Signs or symptoms of abuse and/or No neglect since last visit Have you been in the hospital since your No last visit? Has dressing in place as prescribed Yes Has compression in place as prescribed No Has offloadiing in place as prescribed N/A Experienced any changes in pain level or No management Left Footwear Regular Shoe Right Footwear Regular Shoe Pain Scale: 0-10 Numeric Is Patient Pain Free? Yes WC - Nurse 1 - General Ulcer Measurement Start: 10/25/23 10:26 Freq: Status: Active Protocol: Activity Type Activity Date Activity User E-sign Co-sign Detail Recorded Client Recorded Date Recorded By Document 10/25/23 10:26 DL Desktop 10/25/23 10:33 DL 10/25/23 10:26 Wound Center Nurse 1 #15 R Med Ankle -Current Size (cm) - Length 1.6 -Current Size (cm) - Width 0.4 -Current Size (cm) - Depth 0.1 -Total Square Cm 0.64 -Exudate Amt Small -Exudate Type Serosanguineous -Wound Margin Distinct, Outline Attached -Granulation Amt Small (1-33%) -Granulation Quality [place] -Necrosis Amt Small (1-33%) -Necrotic Tissue Type Adherent Slough -Structure Exposed N/A -Texture (Vangie-wound Skin Appearance) Localized Edema ,Scarring -Moisture (Vnagie-wound Skin Appearance) Dry/Scaly -Color (Vangie-wound Skin Appearance) Hemosiderin Staining -Temperature (Vangie-wound Skin No Abnormality Appearance) (Pt Warm) -Ulcer Cleansing Rinsed/ Irrigated with Saline -Foul Odor after Cleansing No -Anesthetic Used 5% Lidocaine Gel Right Calf (cm) 37 Right Ankle (cm) 22 Left Calf (cm) 40.1 Left Ankle (cm) 24.2 WC - Nurse 2 - General Ulcer CM Notes Start: 10/25/23 10:26 Freq: Status: Active Protocol: Activity Type Activity Date Activity User E-sign Co-sign Detail Recorded Client Recorded Date Recorded By Document 10/25/23 11:07 Laptop 10/25/23 11:17 10/25/23 11:07 Wound Center Nurse 2 #15 R Med Ankle -Time 11:14 -Correct Patient Yes -Correct Side, Site, Position Yes -Correct Procedure Yes -Procedure Performed Yes -Type of Procedure Debridement -Clinical Debridement Subcutaneous -Tissue Removed Subcutaneous -Post Debridement (cm) - Length 2.0 -Post Debridement (cm) - Width 0.4 -Post Debridement (cm) - Depth 0.1 -Total Square (Post) (cm) 0.80 -Area of Debridement (cm) - Length 2.0 -Area of Debridement (cm) - Width 0.4 -Total Square (Area) (cm) 0.80 -Tunneling No -Undermining/Tunneling No -Circular Undermining No -Wound/Ulcer Outcome Not Healed -Ulcer Cleansing Rinsed/ Irrigated with Saline -Foul Odor after Cleansing No -Bioengineered Tissue Yes -Type of Bioengineered Tissue Epifix 18mm Disc -Expiration Date 05/26/28 -Product Lot Number [id number] -Percent Used 100 -Lot number of Saline Used [id number] -Bleeding Controlled with Pressure -Treatment Response Procedure Tolerated Well -Offloading No -Debridement - Subq, 1st 20sq cm No -Apply Skin Sub - 1st 25 sq cm - Legs 1 -Epifix 18mm Disc 3 Pain Scale: 0-10 Numeric Is Patient Pain Free? Yes - Nurse 3 - General Ulcer D/C NN Start: 10/25/23 10:26 Freq: Status: Active Protocol: Activity Type Activity Date Activity User E-sign Co-sign Detail Recorded Client Recorded Date Recorded By Document 10/25/23 11:17 Laptop 10/25/23 11:20 10/25/23 11:17 Wound Care Center Nurse 3 #15 R Med Ankle -Ulcer Cleansing Rinsed/ Irrigated with Saline -Primary Dressing Applied Optilok 6.5x10 -Primary Dressing Covered/Secured with Dry Gauze -Optilok 6.5x10 1 Right -Tubular Bandage Single Layer -Size of Tubigrip Used Size E -Size E ($) 1 Left -Tubular Bandage Single Layer -Size of Tubigrip Used Size E -Size E ($) 1 Pain Scale: 0-10 Numeric Is Patient Pain Free? Yes - Visit Discharge Discharge Condition Stable Ambulatory Status Ambulatory, Walker Accompanied by caregiver Medication Reconcilliation completed & Yes provided to patient/care provider Clinical Summary of Care Provided Yes Assessment/Plan Assessment/Plan (1) Chronic ulcer of right ankle: CODE(S): L97.319 - Non-pressure chronic ulcer of right ankle with unspecified severity QUALIFIERS: Non-pressure ulcer stage: with fat layer exposed Qualified Code(s): L97.312 - Non-pressure chronic ulcer of right ankle with fat layer exposed (2) Other complications of skin graft (allograft) (autograft): CODE(S): T86.828 - Other complications of skin graft (allograft) (autograft) (3) 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 She has a chronic, non healing ulcer on her right medial ankle that has not been healing with traditional wound care. She has been approved for Epifix. Wound care - Epifix #1 placed today on her right medial ankle ulcer. 100% of the product was used. A wound veil was placed over it and secured with steri-strips. Hydrogel was applied on top of the wound veil and it was covered with [place] SAP. She was instructed not to get the ulcer or dressing wet. She may change the outer dressing as needed for drainage. She verbalized understanding. Compression - Single layer tubigrips bilaterally. She recently moved and has been walking more. She has swelling and erythema of jeannette bilateral legs. Will start her on Doxycycline twice daily. Instructed to call or go to ED if the redness gets worse or if she develops fever, chills, nausea, vomiting or not feeling well. Follow up one week.
[2023-11-01 10:00] VITALS: BP 127/72; PULSE 73; RESP 18; TEMP 37.1; BMI 25.1
--- NOTE | 2023-11-01 11:26 | PCM.WC.PN ---
History of Present Illness Date of Service: 11/01/23 Chief Complaint: Right medial ankle ulcer History of Wound: 88 year old female who is known to me. She has previously been seen at the wound center for a right medial ankle ulcer secondary to some compromise to the healing skin graft. She has a non healing ulcer on her right medial ankle after her surgery on 05/13/23 where she underwent surgical preparation left medial knee with excision 3 cm painful nonhealing squamous cell carcinoma ulcer and STSG reconstruction from the left flank (20 cm2), which has healed, and Surgical preparation right medial ankle with excision 2.5 cm painful nonhealing squamous cell carcinoma ulcer and STSG reconstruction from the left flank (17.5 cm2). She developed compromise of the right medial ankle skin graft. It has not been healing with conservative treatment in our office, so she is being transferred to the wound center for an advanced skin substitute, such as Epifix. Pathology of ight medial ankle ulcer showed acute and chronic inflammation and granulation tissue reaction, pseudoepitheliomatous hyperplasia, negative for malignancy. The left medial knee non healing ulcer showed extensive ulceration, acute and chronic inflammation and granulation tissue reaction, pseudoepitheliomatous hyperplasia, mirlande elastosis and focal foreign body giant reaction, negative for malignancy. Operative culture from 05/13/23 of right medial ankle positive for Staphylococcus aureus and Staphylococcus capitis and Anaerobic cocci. Left medial knee was positive for Staphylococcus aureus. She has a history of excision of multiple Squamous cell carcinomas, Actinic keratosis, Afib, chronic anticoagulation, CHF, chronic venous insufficiency, rheumatoid arthritis which she used to be on methotrexate. She has been approved for Epifix. Today she states she feels well and denies fever, chills, nausea and vomiting. Progress of Wound: Right medial ankle ulcer is smaller in size. Epifix #1 applied last week and she tolerated it well. She is denying any concerns today. Objective Data Objective Data Vital Signs: Vital Signs Temp Pulse Resp BP 98.7 F 73 18 127/72 H 11/01/23 10:00 11/01/23 10:00 11/01/23 10:00 11/01/23 10:00 Weight: 155 lb 11.464 oz Body Mass Index (BMI) 25.1 Charges/Coding Procedures Integumentary 150xxx-152xx: 16222 Skin sub graft trnk/arm/leg Debridement Note Debridement Note Wound debrided: medial ankle ulcer Laterality: Right Wound Grade/Stage: Grade III Type of Debridement: Excisional debridement Anesthesia Used: 5% Lidocaine Gel Depth: Down to and including healthy tissue and in the subcutaneous layer Percentage of wound debrided: 100 Instrument Used: 5mm curette Tissue Removed: Non viable tissue and slough Severity: Fat Layer Exposed Amount of bleeding with debridement: Mild Bleeding Controlled with: Compression and gauze Patient tolerated procedure: Patient tolerated procedure well Post-Debridement Measurements and Additional Note: Post-Debridement Measurements/Treatment - Nurse 1 - General Ulcer Assessment Start: 10/25/23 10:26 Freq: Status: Active Protocol: BRANWikiYouEXRowan Activity Type Activity Date Activity User E-sign Co-sign Detail Recorded Client Recorded Date Recorded By Document 10/25/23 10:26 DL Desktop 10/25/23 10:33 DL Document 11/01/23 10:00 DL Desktop 11/01/23 10:05 DL 10/25/23 11/01/23 10:26 10:00 - Today's Visit Information Type of service Follow-up Visit Follow-up Visit (Physician/CLINICAL RESEARCH NURSE COORDINATOR (Physician/CLINICAL RESEARCH NURSE COORDINATOR ) ) Arrival Mode Ambulatory, Ambulatory Walker Transfer Assistance None None Patient Identification Verified (Name & Yes Yes ) Patient Requires Transmission-Based No No Precautions Height and Weight Body Mass Index (BMI) 25.1 25.1 BMI Classification Overweight Overweight Vital Signs Temperature (97.8 F-99.1 F) 98.2 F 98.7 F Temperature Source Temporal Temporal Pulse Rate (60-100) 77 73 Pulse Location Monitor Monitor Respiratory Rate (12-18) 20 H 18 Respiratory rate source Observation Observation Blood Pressure (90/60-120/80) 150/60 H 127/72 H Blood Pressure Mean (mm Hg) 90 90 Source Monitor Monitor History Since Last Visit- (Skip if this is Patient's initial visit) Have you changed medications since your No No last visit? Any new allergies or adverse reactions No No Had a fall/change in ADL's that may No increase risk of falls Signs or symptoms of abuse and/or No No neglect since last visit Have you been in the hospital since your No No last visit? Has dressing in place as prescribed Yes Yes Has compression in place as prescribed No Yes Has offloadiing in place as prescribed N/A N/A Experienced any changes in pain level or No No management Left Footwear Regular Shoe Right Footwear Regular Shoe Pain Scale: 0-10 Numeric Is Patient Pain Free? Yes Yes WC - Nurse 1 - General Ulcer Measurement Start: 10/25/23 10:26 Freq: Status: Active Protocol: Activity Type Activity Date Activity User E-sign Co-sign Detail Recorded Client Recorded Date Recorded By Document 10/25/23 10:26 DL Desktop 10/25/23 10:33 DL Document 11/01/23 10:00 DL Desktop 11/01/23 10:05 DL 10/25/23 11/01/23 10:26 10:00 Wound Center Nurse 1 #15 R Med Ankle -Current Size (cm) - Length 1.6 1.8 -Current Size (cm) - Width 0.4 0.5 -Current Size (cm) - Depth 0.1 0.1 -Total Square Cm 0.64 0.90 -Photo Taken Yes -Exudate Amt Small Medium -Exudate Type Serosanguineous Serosanguineous -Wound Margin Distinct, Distinct, Outline Outline Attached Attached -Granulation Amt Small (1-33%) Small (1-33%) -Granulation Quality [place] -Necrosis Amt Small (1-33%) Small (1-33%) -Necrotic Tissue Type Adherent Slough Adherent Slough -Structure Exposed N/A N/A -Texture (Vangie-wound Skin Appearance) Localized Edema Scarring ,Scarring -Moisture (Vangie-wound Skin Appearance) Dry/Scaly Dry/Scaly -Color (Vangie-wound Skin Appearance) Hemosiderin Hemosiderin Staining Staining -Temperature (Vangie-wound Skin No Abnormality No Abnormality Appearance) (Pt Warm) (Pt Warm) -Tenderness on Palpation (Vangie-wound No Skin Appearance) -Ulcer Cleansing Rinsed/ Soap and Water Irrigated with Saline -Foul Odor after Cleansing No No -Anesthetic Used 5% Lidocaine 5% Lidocaine Gel Gel -Wound Comment(s) epifix intact. Right Calf (cm) 37 35.5 Right Ankle (cm) 22 22 Left Calf (cm) 40.1 Left Ankle (cm) 24.2 WC - Nurse 2 - General Ulcer CM Notes Start: 10/25/23 10:26 Freq: Status: Active Protocol: Activity Type Activity Date Activity User E-sign Co-sign Detail Recorded Client Recorded Date Recorded By Document 10/25/23 11:07 Laptop 10/25/23 11:17 Document 11/01/23 10:30 Laptop 11/01/23 10:32 10/25/23 11/01/23 11:07 10:30 Wound Center Nurse 2 #15 R Med Ankle -Time 11:14 10:30 -Correct Patient Yes Yes -Correct Side, Site, Position Yes Yes -Correct Procedure Yes Yes -Procedure Performed Yes Yes -Type of Procedure Debridement Debridement -Clinical Debridement Subcutaneous Subcutaneous -Tissue Removed Subcutaneous Subcutaneous -Post Debridement (cm) - Length 2.0 2.3 -Post Debridement (cm) - Width 0.4 0.5 -Post Debridement (cm) - Depth 0.1 0.1 -Total Square (Post) (cm) 0.80 1.15 -Area of Debridement (cm) - Length 2.0 2.3 -Area of Debridement (cm) - Width 0.4 0.5 -Total Square (Area) (cm) 0.80 1.15 -Tunneling No No -Undermining/Tunneling No No -Circular Undermining No No -Wound/Ulcer Outcome Not Healed Not Healed -Ulcer Cleansing Rinsed/ Rinsed/ Irrigated with Irrigated with Saline Saline -Foul Odor after Cleansing No No -Bioengineered Tissue Yes Yes -Type of Bioengineered Tissue Epifix 18mm Epifix 18mm Disc Disc -Expiration Date 05/26/28 05/26/28 -Product Lot Number [id number] -Percent Used 100 100 -Lot number of Saline Used [id number] -Bleeding Controlled with Pressure Pressure -Treatment Response Procedure Procedure Tolerated Well Tolerated Well -Offloading No No -Debridement - Subq, 1st 20sq cm No No -Apply Skin Sub - 1st 25 sq cm - Legs 1 1 -Epifix 18mm Disc 3 3 Pain Scale: 0-10 Numeric Is Patient Pain Free? Yes Yes - Nurse 3 - General Ulcer D/C NN Start: 10/25/23 10:26 Freq: Status: Active Protocol: Activity Type Activity Date Activity User E-sign Co-sign Detail Recorded Client Recorded Date Recorded By Document 10/25/23 11:17 Laptop 10/25/23 11:20 Document 11/01/23 10:33 Laptop 11/01/23 10:34 10/25/23 11/01/23 11:17 10:33 Wound Care Center Nurse 3 #15 R Med Ankle -Ulcer Cleansing Rinsed/ Irrigated with Saline -Primary Dressing Applied Optilok 6.5x10 Mepilex Border -Primary Dressing Covered/Secured with Dry Gauze -Mepilex Border 1 -Optilok 6.5x10 1 Right -Tubular Bandage Single Layer Single Layer -Size of Tubigrip Used Size E Size E -Size E ($) 1 1 Left -Tubular Bandage Single Layer -Size of Tubigrip Used Size E -Size E ($) 1 Pain Scale: 0-10 Numeric Is Patient Pain Free? Yes Yes WC - Visit Discharge Discharge Condition Stable Stable Ambulatory Status Ambulatory, Ambulatory Walker Transportation Private Auto Accompanied by caregiver caregiver Medication Reconcilliation completed & Yes Yes provided to patient/care provider Clinical Summary of Care Provided Yes Yes Assessment/Plan Assessment/Plan (1) Chronic ulcer of right ankle: CODE(S): L97.319 - Non-pressure chronic ulcer of right ankle with unspecified severity QUALIFIERS: Non-pressure ulcer stage: with fat layer exposed Qualified Code(s): L97.312 - Non-pressure chronic ulcer of right ankle with fat layer exposed (2) Other complications of skin graft (allograft) (autograft): CODE(S): T86.828 - Other complications of skin graft (allograft) (autograft) (3) 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 She has a chronic, non healing ulcer on her right medial ankle that has not been healing with traditional wound care. She has been approved for Epifix. Wound care - Epifix #2 placed today on her right medial ankle ulcer. 100% of the product was used. A wound veil was placed over it and secured with steri-strips. Hydrogel was applied on top of the wound veil and it was covered with Mepilex dressing. She was instructed not to get the ulcer or dressing wet. She may change the outer dressing as needed for drainage. She verbalized understanding. Compression - Single layer tubigrips bilaterally. She recently moved and has been walking more. She has swelling and erythema of jeannette bilateral legs. Will start her on Doxycycline twice daily. Instructed to call or go to ED if the redness gets worse or if she develops fever, chills, nausea, vomiting or not feeling well. Follow up one week.
[2023-11-08 09:36] VITALS: BP 146/50; PULSE 69; RESP 16; TEMP 36.8; BMI 25.1
--- NOTE | 2023-11-08 13:00 | PN.PCM_ITS ---
History of Present Illness Date of Service: 11/08/23 Chief Complaint: Right medial ankle ulcer History of Wound: 88 year old female who is known to me. She has previously been seen at the wound center for a right medial ankle ulcer secondary to some compromise to the healing skin graft. She has a non healing ulcer on her right medial ankle after her surgery on 05/13/23 where she underwent surgical preparation left medial knee with excision 3 cm painful nonhealing squamous cell carcinoma ulcer and STSG reconstruction from the left flank (20 cm2), which has healed, and Surgical preparation right medial ankle with excision 2.5 cm painful nonhealing squamous cell carcinoma ulcer and STSG reconstruction from the left flank (17.5 cm2). She developed compromise of the right medial ankle skin graft. It has not been healing with conservative treatment in our office, so she is being transferred to the wound center for an advanced skin substitute, such as Epifix. Pathology of ight medial ankle ulcer showed acute and chronic inflammation and granulation tissue reaction, pseudoepitheliomatous hyperplasia, negative for malignancy. The left medial knee non healing ulcer showed extensive ulceration, acute and chronic inflammation and granulation tissue reaction, pseudoepitheliomatous hyperplasia, mirlande elastosis and focal foreign body giant reaction, negative for malignancy. Operative culture from 05/13/23 of right medial ankle positive for Staphylococcus aureus and Staphylococcus capitis and Anaerobic cocci. Left medial knee was positive for Staphylococcus aureus. She has a history of excision of multiple Squamous cell carcinomas, Actinic keratosis, Afib, chronic anticoagulation, CHF, chronic venous insufficiency, rheumatoid arthritis which she used to be on methotrexate. She has been approved for Epifix. Today she states she feels well and denies fever, chills, nausea and vomiting. Progress of Wound: Right medial ankle ulcer is smaller in size. Ulcer bed is nice pink color. Epifix #2 applied last week and she tolerated it well. She is denying any concerns today. Objective Data Objective Data Vital Signs: Vital Signs Temp Pulse Resp BP O2 Del Method 98.2 F 69 16 146/50 H Room Air 11/08/23 09:36 11/08/23 09:36 11/08/23 09:36 11/08/23 09:36 11/08/23 09:36 Oxygen Delivery Method Room Air Weight: 155 lb 11.464 oz Body Mass Index (BMI) 25.1 Charges/Coding Procedures Integumentary 150xxx-152xx: [id number] Skin sub graft trnk/arm/leg Debridement Note Debridement Note Wound debrided: medial ankle ulcer Laterality: Right Wound Grade/Stage: Grade III Type of Debridement: Excisional debridement Anesthesia Used: 5% Lidocaine Gel Depth: Down to and including healthy tissue and in the subcutaneous layer Percentage of wound debrided: 100 Instrument Used: 3mm curette Tissue Removed: Non viable tissue and slough Severity: Fat Layer Exposed Amount of bleeding with debridement: Mild Bleeding Controlled with: Compression and gauze Patient tolerated procedure: Patient tolerated procedure well Post-Debridement Measurements and Additional Note: Post-Debridement Measurements/Treatment - Nurse 1 - General Ulcer Assessment Start: 10/25/23 10:26 Freq: Status: Active Protocol: ALEX Activity Type Activity Date Activity User E-sign Co-sign Detail Recorded Client Recorded Date Recorded By Document 10/25/23 10:26 DL Desktop 10/25/23 10:33 DL Document 11/01/23 10:00 DL [employer] 11/01/23 10:05 DL Document 11/08/23 09:36 KW Desktop 11/08/23 09:45 KW 10/25/23 11/01/23 11/08/23 10:26 10:00 09:36 - Today's Visit Information Type of service Follow-up Visit Follow-up Visit Follow-up Visit (Physician/FOOD AND BEVERAGE DIRECTOR (Physician/FOOD AND BEVERAGE DIRECTOR (Physician/FOOD AND BEVERAGE DIRECTOR ) ) ) Arrival Mode Ambulatory, Ambulatory Ambulatory, Walker Walker Transfer Assistance None None Accompanied by SISTER Patient Identification Verified (Name & Yes Yes Yes ) Patient Requires Transmission-Based No No Precautions Height and Weight Body Mass Index (BMI) 25.1 25.1 25.1 BMI Classification Overweight Overweight Overweight Vital Signs Temperature (97.8 F-99.1 F) 98.2 F 98.7 F 98.2 F Temperature Source Temporal Temporal Temporal Pulse Rate (60-100) 77 73 69 Pulse Location Monitor Monitor Monitor Respiratory Rate (12-18) 20 H 18 16 Respiratory rate source Observation Observation Observation Oxygen Delivery Method Room Air Blood Pressure (90/60-120/80) 150/60 H 127/72 H 146/50 H Blood Pressure Mean (mm Hg) 90 90 82 Source Monitor Monitor Monitor Position Semi-Fowlers Blood Pressure Location Left Arm History Since Last Visit- (Skip if this is Patient's initial visit) Have you changed medications since your No No No last visit? Any new allergies or adverse reactions No No No Had a fall/change in ADL's that may No No increase risk of falls Signs or symptoms of abuse and/or No No No neglect since last visit Have you been in the hospital since your No No No last visit? Has dressing in place as prescribed Yes Yes Yes Has compression in place as prescribed No Yes Yes Has offloadiing in place as prescribed N/A N/A N/A Experienced any changes in pain level or No No No management Left Footwear Regular Shoe Regular Shoe Right Footwear Regular Shoe Regular Shoe Pain Scale: 0-10 Numeric Is Patient Pain Free? Yes Yes Yes WC - Nurse 1 - General Ulcer Measurement Start: 10/25/23 10:26 Freq: Status: Active Protocol: Activity Type Activity Date Activity User E-sign Co-sign Detail Recorded Client Recorded Date Recorded By Document 10/25/23 10:26 DL [employer] 10/25/23 10:33 DL Document 11/01/23 10:00 DL [employer] 11/01/23 10:05 DL Document 11/08/23 09:36 KW Desktop 11/08/23 09:45 KW 10/25/23 11/01/23 11/08/23 10:26 10:00 09:36 Wound Center Nurse 1 #15 R Med Ankle -Current Size (cm) - Length 1.6 1.8 2.0 -Current Size (cm) - Width 0.4 0.5 0.3 -Current Size (cm) - Depth 0.1 0.1 0.1 -Total Square Cm 0.64 0.90 0.60 -Photo Taken Yes -Exudate Amt Small Medium Small -Exudate Type Serosanguineous Serosanguineous Serosanguineous -Wound Margin Distinct, Distinct, Distinct, Outline Outline Outline Attached Attached Attached -Granulation Amt Small (1-33%) Small (1-33%) Medium (34-66%) -Granulation Quality Orbisonia Red Orbisonia -Necrosis Amt Small (1-33%) Small (1-33%) Large (67-100%) -Necrotic Tissue Type Adherent Slough Adherent Slough Adherent Slough -Structure Exposed N/A N/A -Texture (Vangie-wound Skin Appearance) Localized Edema Scarring Assessed ,Scarring -Moisture (Vangie-wound Skin Appearance) Dry/Scaly Dry/Scaly Assessed -Color (Vangie-wound Skin Appearance) Hemosiderin Hemosiderin Assessed Staining Staining -Temperature (Vangie-wound Skin No Abnormality No Abnormality No Abnormality Appearance) (Pt Warm) (Pt Warm) (Pt Warm) -Tenderness on Palpation (Vangie-wound No No Skin Appearance) -Ulcer Cleansing Rinsed/ Soap and Water Soap and Water Irrigated with Saline -Foul Odor after Cleansing No No No -Anesthetic Used 5% Lidocaine 5% Lidocaine 5% Lidocaine Gel Gel Gel -Wound Comment(s) epifix intact. Right Calf (cm) 37 35.5 36.7 Right Ankle (cm) 22 22 21.5 Left Calf (cm) 40.1 Left Ankle (cm) 24.2 WC - Nurse 2 - General Ulcer CM Notes Start: 10/25/23 10:26 Freq: Status: Active Protocol: Activity Type Activity Date Activity User E-sign Co-sign Detail Recorded Client Recorded Date Recorded By Document 10/25/23 11:07 [employer] 10/25/23 11:17 [employer] Document 11/01/23 10:30 [employer] 11/01/23 10:32 [employer] Document 11/08/23 10:09 [employer]aptop 11/08/23 10:17 [employer] 10/25/23 11/01/23 11/08/23 11:07 10:30 10:09 Wound Center Nurse 2 #15 R Med Ankle -Time 11:14 10:30 10:09 -Correct Patient Yes Yes Yes -Correct Side, Site, Position Yes Yes Yes -Correct Procedure Yes Yes Yes -Procedure Performed Yes Yes Yes -Type of Procedure Debridement Debridement Debridement -Clinical Debridement Subcutaneous Subcutaneous Subcutaneous -Tissue Removed Subcutaneous Subcutaneous Subcutaneous -Post Debridement (cm) - Length 2.0 2.3 2.2 -Post Debridement (cm) - Width 0.4 0.5 0.4 -Post Debridement (cm) - Depth 0.1 0.1 0.1 -Total Square (Post) (cm) 0.80 1.15 0.88 -Area of Debridement (cm) - Length 2.0 2.3 2.2 -Area of Debridement (cm) - Width 0.4 0.5 0.4 -Total Square (Area) (cm) 0.80 1.15 0.88 -Tunneling No No No -Undermining/Tunneling No No No -Circular Undermining No No No -Wound/Ulcer Outcome Not Healed Not Healed Not Healed -Ulcer Cleansing Rinsed/ Rinsed/ Rinsed/ Irrigated with Irrigated with Irrigated with Saline Saline Saline -Foul Odor after Cleansing No No No -Bioengineered Tissue Yes Yes Yes -Type of Bioengineered Tissue Epifix 18mm Epifix 18mm Epifix 18mm Disc Disc Disc -Expiration Date 05/26/28 05/26/28 05/26/28 -Product Lot Number [id number] -Percent Used 100 100 100 -Lot number of Saline Used [id number] -Bleeding Controlled with Pressure Pressure Pressure -Treatment Response Procedure Procedure Procedure Tolerated Well Tolerated Well Tolerated Well -Offloading No No No -Debridement - Subq, 1st 20sq cm No No No -Apply Skin Sub - 1st 25 sq cm - Legs 1 1 1 -Epifix 18mm Disc 3 3 3 Pain Scale: 0-10 Numeric Is Patient Pain Free? Yes Yes Yes - Nurse 3 - General Ulcer D/C NN Start: 10/25/23 10:26 Freq: Status: Active Protocol: Activity Type Activity Date Activity User E-sign Co-sign Detail Recorded Client Recorded Date Recorded By Document 10/25/23 11:17 [employer] 10/25/23 11:20 Document 11/01/23 10:33 Laptop 11/01/23 10:34 Document 11/08/23 10:27 Laptop 11/08/23 10:27 10/25/23 11/01/23 11/08/23 11:17 10:33 10:27 Wound Care Center Nurse 3 #15 R Med Ankle -Ulcer Cleansing Rinsed/ Rinsed/ Irrigated with Irrigated with Saline Saline -Primary Dressing Applied Optilok 6.5x10 Mepilex Border Mepilex Border -Primary Dressing Covered/Secured with Dry Gauze Dry Gauze -Mepilex Border 1 1 -Optilok 6.5x10 1 Right -Tubular Bandage Single Layer Single Layer Single Layer -Size of Tubigrip Used Size E Size E Size E -Size E ($) 1 1 1 Left -Tubular Bandage Single Layer -Size of Tubigrip Used Size E -Size E ($) 1 Pain Scale: 0-10 Numeric Is Patient Pain Free? Yes Yes Yes WC - Visit Discharge Discharge Condition Stable Stable Stable Ambulatory Status Ambulatory, Ambulatory Ambulatory Walker Transportation Private Auto Private Auto Accompanied by caregiver caregiver Medication Reconcilliation completed & Yes Yes Yes provided to patient/care provider Clinical Summary of Care Provided Yes Yes Yes Assessment/Plan Assessment/Plan (1) Chronic ulcer of right ankle: CODE(S): L97.319 - Non-pressure chronic ulcer of right ankle with unspecified severity QUALIFIERS: Non-pressure ulcer stage: with fat layer exposed Qualified Code(s): L97.312 - Non-pressure chronic ulcer of right ankle with fat layer exposed (2) Other complications of skin graft (allograft) (autograft): CODE(S): T86.828 - Other complications of skin graft (allograft) (autograft) (3) 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 She has a chronic, non healing ulcer on her right medial ankle that has not been healing with traditional wound care. She has been approved for Epifix. Wound care - Epifix #3 placed today on her right medial ankle ulcer. 100% of the product was used. A wound veil was placed over it and secured with steri- strips. Hydrogel was applied on top of the wound veil and it was covered with Mepilex dressing. She was instructed not to get the ulcer or dressing wet. She may change the outer dressing as needed for drainage. She verbalized understanding. Compression - Single layer tubigrips bilaterally. Her edema is controlled. The erythema has resolved. She has completed her Doxycycline. Follow up one week.
--- NOTE | 2023-11-15 09:43 | WC ---
11/08/2023 RT [facility]
[2023-11-15 10:15] VITALS: BP 151/55; PULSE 65; RESP 16; TEMP 36.4; BMI 25.1
--- NOTE | 2023-11-15 11:38 | PCM.WC.PN ---
History of Present Illness Date of Service: 11/15/23 Chief Complaint: Right medial ankle ulcer History of Wound: 88 year old female who is known to me. She has previously been seen at the wound center for a right medial ankle ulcer secondary to some compromise to the healing skin graft. She has a non healing ulcer on her right medial ankle after her surgery on 05/13/23 where she underwent surgical preparation left medial knee with excision 3 cm painful nonhealing squamous cell carcinoma ulcer and STSG reconstruction from the left flank (20 cm2), which has healed, and Surgical preparation right medial ankle with excision 2.5 cm painful nonhealing squamous cell carcinoma ulcer and STSG reconstruction from the left flank (17.5 cm2). She developed compromise of the right medial ankle skin graft. It has not been healing with conservative treatment in our office, so she is being transferred to the wound center for an advanced skin substitute, such as Epifix. Pathology of ight medial ankle ulcer showed acute and chronic inflammation and granulation tissue reaction, pseudoepitheliomatous hyperplasia, negative for malignancy. The left medial knee non healing ulcer showed extensive ulceration, acute and chronic inflammation and granulation tissue reaction, pseudoepitheliomatous hyperplasia, mirlande elastosis and focal foreign body giant reaction, negative for malignancy. Operative culture from 05/13/23 of right medial ankle positive for Staphylococcus aureus and Staphylococcus capitis and Anaerobic cocci. Left medial knee was positive for Staphylococcus aureus. She has a history of excision of multiple Squamous cell carcinomas, Actinic keratosis, Afib, chronic anticoagulation, CHF, chronic venous insufficiency, rheumatoid arthritis which she used to be on methotrexate. She has been approved for Epifix. Today she states she feels well and denies fever, chills, nausea and vomiting. Progress of Wound: Right medial ankle ulcer is smaller in size. Ulcer bed is nice pink color. Epifix #3 applied last week and she tolerated it well. She is denying any concerns today. Objective Data Objective Data Vital Signs: Vital Signs Temp Pulse Resp BP O2 Del Method 97.5 F L 65 16 151/55 H Room Air 11/15/23 10:15 11/15/23 10:15 11/15/23 10:15 11/15/23 10:15 11/15/23 10:15 Oxygen Delivery Method Room Air Weight: 155 lb 11.464 oz Body Mass Index (BMI) 25.1 Charges/Coding Procedures Integumentary 150xxx-152xx: [id number] Skin sub graft trnk/arm/leg Debridement Note Debridement Note Wound debrided: medial ankle ulcer Laterality: Right Wound Grade/Stage: Grade III Type of Debridement: Excisional debridement Anesthesia Used: 5% Lidocaine Gel Depth: Down to and including healthy tissue and in the subcutaneous layer Percentage of wound debrided: 100 Instrument Used: 3mm curette Tissue Removed: Non viable tissue and slough Severity: Fat Layer Exposed Amount of bleeding with debridement: Mild Bleeding Controlled with: Compression and gauze Patient tolerated procedure: Patient tolerated procedure well Post-Debridement Measurements and Additional Note: Post-Debridement Measurements/Treatment - Nurse 1 - General Ulcer Assessment Start: 10/25/23 10:26 Freq: Status: Active Protocol: ALEX Activity Type Activity Date Activity User E-sign Co-sign Detail Recorded Client Recorded Date Recorded By Document 10/25/23 10:26 DL Desktop 10/25/23 10:33 DL Document 11/01/23 10:00 DL Desktop 11/01/23 10:05 DL Document 11/08/23 09:36 KW Desktop 11/08/23 09:45 KW Document 11/15/23 10:15 BMF Desktop 11/15/23 10:21 BMF 10/25/23 11/01/23 11/08/23 10:26 10:00 09:36 - Today's Visit Information Type of service Follow-up Visit Follow-up Visit Follow-up Visit (Physician/FAMILY SERVICES COORDINATOR (Physician/FAMILY SERVICES COORDINATOR (Physician/FAMILY SERVICES COORDINATOR ) ) ) Arrival Mode Ambulatory, Ambulatory Ambulatory, Walker Walker Transfer Assistance None None Accompanied by SISTER Patient Identification Verified (Name & Yes Yes Yes ) Patient Requires Transmission-Based No No Precautions Height and Weight Body Mass Index (BMI) 25.1 25.1 25.1 BMI Classification Overweight Overweight Overweight Vital Signs Temperature (97.8 F-99.1 F) 98.2 F 98.7 F 98.2 F Temperature Source Temporal Temporal Temporal Pulse Rate (60-100) 77 73 69 Pulse Location Monitor Monitor Monitor Respiratory Rate (12-18) 20 H 18 16 Respiratory rate source Observation Observation Observation Oxygen Delivery Method Room Air Blood Pressure (90/60-120/80) 150/60 H 127/72 H 146/50 H Blood Pressure Mean (mm Hg) 90 90 82 Source Monitor Monitor Monitor Position Semi-Fowlers Blood Pressure Location Left Arm History Since Last Visit- (Skip if this is Patient's initial visit) Have you changed medications since your No No No last visit? Any new allergies or adverse reactions No No No Had a fall/change in ADL's that may No No increase risk of falls Signs or symptoms of abuse and/or No No No neglect since last visit Have you been in the hospital since your No No No last visit? Has dressing in place as prescribed Yes Yes Yes Has compression in place as prescribed No Yes Yes Has offloadiing in place as prescribed N/A N/A N/A Experienced any changes in pain level or No No No management Left Footwear Regular Shoe Regular Shoe Right Footwear Regular Shoe Regular Shoe Pain Scale: 0-10 Numeric Is Patient Pain Free? Yes Yes Yes 11/15/23 10:15 WC - Today's Visit Information Type of service Follow-up Visit (Physician/FAMILY SERVICES COORDINATOR ) Arrival Mode Ambulatory,Cane Transfer Assistance None Accompanied by private duty caregiver Patient Identification Verified (Name & Yes ) Patient Requires Transmission-Based No Precautions Height and Weight Body Mass Index (BMI) 25.1 BMI Classification Overweight Vital Signs Temperature (97.8 F-99.1 F) 97.5 F L Temperature Source Temporal Pulse Rate (60-100) 65 Pulse Location Monitor Respiratory Rate (12-18) 16 Respiratory rate source Observation Oxygen Delivery Method Room Air Blood Pressure (90/60-120/80) 151/55 H Blood Pressure Mean (mm Hg) 87 Source Monitor Position Sitting Blood Pressure Location Left Arm History Since Last Visit- (Skip if this is Patient's initial visit) Have you changed medications since your No last visit? Any new allergies or adverse reactions No Had a fall/change in ADL's that may No increase risk of falls Signs or symptoms of abuse and/or No neglect since last visit Have you been in the hospital since your No last visit? Has dressing in place as prescribed Yes Has compression in place as prescribed Yes Has offloadiing in place as prescribed N/A Experienced any changes in pain level or No management Left Footwear Regular Shoe Right Footwear Regular Shoe Pain Scale: 0-10 Numeric Is Patient Pain Free? Yes - Nurse 1 - General Ulcer Measurement Start: 10/25/23 10:26 Freq: Status: Active Protocol: Activity Type Activity Date Activity User E-sign Co-sign Detail Recorded Client Recorded Date Recorded By Document 10/25/23 10:26 DL Desktop 10/25/23 10:33 DL Document 11/01/23 10:00 DL Desktop 11/01/23 10:05 DL Document 11/08/23 09:36 KW Desktop 11/08/23 09:45 KW Document 11/15/23 10:15 BM Desktop 11/15/23 10:21 BMF 10/25/23 11/01/23 11/08/23 10:26 10:00 09:36 Wound Center Nurse 1 #15 R Med Ankle -Combined with other wound -Current Size (cm) - Length 1.6 1.8 2.0 -Current Size (cm) - Width 0.4 0.5 0.3 -Current Size (cm) - Depth 0.1 0.1 0.1 -Total Square Cm 0.64 0.90 0.60 -Photo Taken Yes -Epithelialization -Tunneling -Undermining/Tunneling -Circular Undermining -Exudate Amt Small Medium Small -Exudate Type Serosanguineous Serosanguineous Serosanguineous -Wound Margin Distinct, Distinct, Distinct, Outline Outline Outline Attached Attached Attached -Granulation Amt Small (1-33%) Small (1-33%) Medium (34-66%) -Granulation Quality Mcfarlan Red Mcfarlan -Slough/Fibrin -Necrosis Amt Small (1-33%) Small (1-33%) Large (67-100%) -Necrotic Tissue Type Adherent Slough Adherent Slough Adherent Slough -Structure Exposed N/A N/A -Texture (Vangie-wound Skin Appearance) Localized Edema Scarring Assessed ,Scarring -Moisture (Vangie-wound Skin Appearance) Dry/Scaly Dry/Scaly Assessed -Color (Vangie-wound Skin Appearance) Hemosiderin Hemosiderin Assessed Staining Staining -Temperature (Vangie-wound Skin No Abnormality No Abnormality No Abnormality Appearance) (Pt Warm) (Pt Warm) (Pt Warm) -Tenderness on Palpation (Vangie-wound No No Skin Appearance) -Ulcer Cleansing Rinsed/ Soap and Water Soap and Water Irrigated with Saline -Foul Odor after Cleansing No No No -Anesthetic Used 5% Lidocaine 5% Lidocaine 5% Lidocaine Gel Gel Gel -Wound Comment(s) epifix intact. Right Calf (cm) 37 35.5 36.7 Right Ankle (cm) 22 22 21.5 Left Calf (cm) 40.1 Left Ankle (cm) 24.2 11/15/23 10:15 Wound Center Nurse 1 #15 R Med Ankle -Combined with other wound No -Current Size (cm) - Length 0.1 -Current Size (cm) - Width 0.1 -Current Size (cm) - Depth 0.1 -Total Square Cm 0.01 -Photo Taken -Epithelialization Large 67-100% -Tunneling No -Undermining/Tunneling No -Circular Undermining No -Exudate Amt Medium -Exudate Type Serosanguineous -Wound Margin Flat & Intact -Granulation Amt Large (67-100%) -Granulation Quality Mcfarlan -Slough/Fibrin Yes -Necrosis Amt Medium (34-66%) -Necrotic Tissue Type Adherent Slough -Structure Exposed -Texture (Vangie-wound Skin Appearance) Assessed, Scarring -Moisture (Vangie-wound Skin Appearance) Assessed,Dry/ Scaly -Color (Vangie-wound Skin Appearance) Assessed -Temperature (Vangie-wound Skin No Abnormality Appearance) (Pt Warm) -Tenderness on Palpation (Vangie-wound No Skin Appearance) -Ulcer Cleansing Soap and Water -Foul Odor after Cleansing No -Anesthetic Used 5% Lidocaine Gel -Wound Comment(s) Right Calf (cm) 35.6 Right Ankle (cm) 22 Left Calf (cm) Left Ankle (cm) WC - Nurse 2 - General Ulcer CM Notes Start: 10/25/23 10:26 Freq: Status: Active Protocol: Activity Type Activity Date Activity User E-sign Co-sign Detail Recorded Client Recorded Date Recorded By Document 10/25/23 11:07 Laptop 10/25/23 11:17 Document 11/01/23 10:30 Laptop 11/01/23 10:32 Document 11/08/23 10:09 Laptop 11/08/23 10:17 Document 11/15/23 11:03 Laptop 11/15/23 11:17 10/25/23 11/01/23 11/08/23 11:07 10:30 10:09 Wound Center Nurse 2 #15 R Med Ankle -Time 11:14 10:30 10:09 -Correct Patient Yes Yes Yes -Correct Side, Site, Position Yes Yes Yes -Correct Procedure Yes Yes Yes -Procedure Performed Yes Yes Yes -Type of Procedure Debridement Debridement Debridement -Clinical Debridement Subcutaneous Subcutaneous Subcutaneous -Tissue Removed Subcutaneous Subcutaneous Subcutaneous -Post Debridement (cm) - Length 2.0 2.3 2.2 -Post Debridement (cm) - Width 0.4 0.5 0.4 -Post Debridement (cm) - Depth 0.1 0.1 0.1 -Total Square (Post) (cm) 0.80 1.15 0.88 -Area of Debridement (cm) - Length 2.0 2.3 2.2 -Area of Debridement (cm) - Width 0.4 0.5 0.4 -Total Square (Area) (cm) 0.80 1.15 0.88 -Tunneling No No No -Undermining/Tunneling No No No -Circular Undermining No No No -Wound/Ulcer Outcome Not Healed Not Healed Not Healed -Ulcer Cleansing Rinsed/ Rinsed/ Rinsed/ Irrigated with Irrigated with Irrigated with Saline Saline Saline -Foul Odor after Cleansing No No No -Bioengineered Tissue Yes Yes Yes -Type of Bioengineered Tissue Epifix 18mm Epifix 18mm Epifix 18mm Disc Disc Disc -Expiration Date 05/26/28 05/26/28 05/26/28 -Product Lot Number [id number] -Percent Used 100 100 100 -Lot number of Saline Used [id number] -Bleeding Controlled with Pressure Pressure Pressure -Treatment Response Procedure Procedure Procedure Tolerated Well Tolerated Well Tolerated Well -Offloading No No No -Debridement - Subq, 1st 20sq cm No No No -Apply Skin Sub - 1st 25 sq cm - Legs 1 1 1 -Epifix 18mm Disc 3 3 3 Pain Scale: 0-10 Numeric Is Patient Pain Free? Yes Yes Yes 11/15/23 11:03 Wound Center Nurse 2 #15 R Med Ankle -Time 11:03 -Correct Patient Yes -Correct Side, Site, Position Yes -Correct Procedure Yes -Procedure Performed Yes -Type of Procedure Debridement -Clinical Debridement Subcutaneous -Tissue Removed Subcutaneous -Post Debridement (cm) - Length -Post Debridement (cm) - Width -Post Debridement (cm) - Depth -Total Square (Post) (cm) -Area of Debridement (cm) - Length -Area of Debridement (cm) - Width -Total Square (Area) (cm) -Tunneling No -Undermining/Tunneling No -Circular Undermining No -Wound/Ulcer Outcome Not Healed -Ulcer Cleansing Rinsed/ Irrigated with Saline -Foul Odor after Cleansing No -Bioengineered Tissue Yes -Type of Bioengineered Tissue Epifix 18mm Disc -Expiration Date 05/26/28 -Product Lot Number [id number] -Percent Used 100 -Lot number of Saline Used [id number] -Bleeding Controlled with Pressure -Treatment Response Procedure Tolerated Well -Offloading No -Debridement - Subq, 1st 20sq cm No -Apply Skin Sub - 1st 25 sq cm - Legs 1 -Epifix 18mm Disc 3 Pain Scale: 0-10 Numeric Is Patient Pain Free? Yes - Nurse 3 - General Ulcer D/C NN Start: 10/25/23 10:26 Freq: Status: Active Protocol: Activity Type Activity Date Activity User E-sign Co-sign Detail Recorded Client Recorded Date Recorded By Document 10/25/23 11:17 Laptop 10/25/23 11:20 Document 11/01/23 10:33 Laptop 11/01/23 10:34 Document 11/08/23 10:27 Laptop 11/08/23 10:27 Document 11/15/23 11:22 DL Laptop 11/15/23 11:23 DL 10/25/23 11/01/23 11/08/23 11:17 10:33 10:27 Wound Care Center Nurse 3 #15 R Med Ankle -Ulcer Cleansing Rinsed/ Rinsed/ Irrigated with Irrigated with Saline Saline -Foul Odor after Cleansing -Primary Dressing Applied Optilok 6.5x10 Mepilex Border Mepilex Border -Other Dressing -Primary Dressing Covered/Secured with Dry Gauze Dry Gauze -Other Covering -Mepilex Border 1 1 -Optilok 6.5x10 1 Right -Tubular Bandage Single Layer Single Layer Single Layer -Size of Tubigrip Used Size E Size E Size E -Size E ($) 1 1 1 Left -Tubular Bandage Single Layer -Size of Tubigrip Used Size E -Size E ($) 1 Treatment Response Pain Scale: 0-10 Numeric Is Patient Pain Free? Yes Yes Yes - Visit Discharge Discharge Condition Stable Stable Stable Ambulatory Status Ambulatory, Ambulatory Ambulatory Walker Transportation Private Auto Private Auto Accompanied by caregiver caregiver Medication Reconcilliation completed & Yes Yes Yes provided to patient/care provider Clinical Summary of Care Provided Yes Yes Yes Orders Sent 11/15/23 11:22 Wound Care Center Nurse 3 #15 R Med Ankle -Ulcer Cleansing -Foul Odor after Cleansing No -Primary Dressing Applied Mepilex Border -Other Dressing theraskin -Primary Dressing Covered/Secured with -Other Covering tubigrip -Mepilex Border 1 -Optilok 6.5x10 Right -Tubular Bandage -Size of Tubigrip Used -Size E ($) Left -Tubular Bandage -Size of Tubigrip Used -Size E ($) Treatment Response Procedure Tolerated Well Pain Scale: 0-10 Numeric Is Patient Pain Free? Yes WC - Visit Discharge Discharge Condition Stable Ambulatory Status Ambulatory, Walker Transportation Private Auto Accompanied by Medication Reconcilliation completed & provided to patient/care provider Clinical Summary of Care Provided Orders Sent Yes Assessment/Plan Assessment/Plan (1) Chronic ulcer of right ankle: CODE(S): L97.319 - Non-pressure chronic ulcer of right ankle with unspecified severity QUALIFIERS: Non-pressure ulcer stage: with fat layer exposed Qualified Code(s): L97.312 - Non-pressure chronic ulcer of right ankle with fat layer exposed (2) Other complications of skin graft (allograft) (autograft): CODE(S): T86.828 - Other complications of skin graft (allograft) (autograft) (3) 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 She has a chronic, non healing ulcer on her right medial ankle that has not been healing with traditional wound care. She has been approved for Epifix. Wound care - Epifix #4 placed today on her right medial ankle ulcer. 100% of the product was used. A wound veil was placed over it and secured with steri-strips. Hydrogel was applied on top of the wound veil and it was covered with Mepilex dressing. She was instructed not to get the ulcer or dressing wet. She may change the outer dressing as needed for drainage. She verbalized understanding. Compression - Single layer tubigrip bilaterally. Her edema is controlled. The erythema has resolved. She has completed her Doxycycline. Follow up one week.
[2023-11-22 09:58] VITALS: BP 160/49; PULSE 66; RESP 18; TEMP 36.1; BMI 25.1
--- NOTE | 2023-11-22 10:33 | PN.PCM_ITS ---
History of Present Illness Date of Service: 11/22/23 Chief Complaint: Right medial ankle ulcer History of Wound: 88 year old female who is known to me. She has previously been seen at the wound center for a right medial ankle ulcer secondary to some compromise to the healing skin graft. She has a non healing ulcer on her right medial ankle after her surgery on 05/13/23 where she underwent surgical preparation left medial knee with excision 3 cm painful nonhealing squamous cell carcinoma ulcer and STSG reconstruction from the left flank (20 cm2), which has healed, and Surgical preparation right medial ankle with excision 2.5 cm painful nonhealing squamous cell carcinoma ulcer and STSG reconstruction from the left flank (17.5 cm2). She developed compromise of the right medial ankle skin graft. It has not been healing with conservative treatment in our office, so she is being transferred to the wound center for an advanced skin substitute, such as Epifix. Pathology of ight medial ankle ulcer showed acute and chronic inflammation and granulation tissue reaction, pseudoepitheliomatous hyperplasia, negative for malignancy. The left medial knee non healing ulcer showed extensive ulceration, acute and chronic inflammation and granulation tissue reaction, pseudoepitheliomatous hyperplasia, mirlande elastosis and focal foreign body giant reaction, negative for malignancy. Operative culture from 05/13/23 of right medial ankle positive for Staphylococcus aureus and Staphylococcus capitis and Anaerobic cocci. Left medial knee was positive for Staphylococcus aureus. She has a history of excision of multiple Squamous cell carcinomas, Actinic keratosis, Afib, chronic anticoagulation, CHF, chronic venous insufficiency, rheumatoid arthritis which she used to be on methotrexate. She has been approved for Epifix. Today she states she feels well and denies fever, chills, nausea and vomiting. Progress of Wound: Right medial ankle ulcer is smaller in size. Ulcer bed is nice pink color. It is almost healed. Epifix #4 applied last week and she tolerated it well. She is denying any concerns today. Objective Data Objective Data Vital Signs: Vital Signs Temp Pulse Resp BP O2 Del Method 97.0 F L 66 18 160/49 H Room Air 11/22/23 09:58 11/22/23 09:58 11/22/23 09:58 11/22/23 09:58 11/15/23 10:15 Oxygen Delivery Method Room Air Weight: 155 lb 11.464 oz Body Mass Index (BMI) 25.1 Charges/Coding Procedures Integumentary 111xxx-113xx: [id number] Lian subq tissue 20 sq cm/< Debridement Note Debridement Note Wound debrided: medial ankle ulcer Laterality: Right Wound Grade/Stage: Grade III Type of Debridement: Excisional debridement Anesthesia Used: 5% Lidocaine Gel Depth: Down to and including healthy tissue and in the subcutaneous layer Percentage of wound debrided: 100 Instrument Used: 3mm curette Tissue Removed: Non viable tissue and slough Severity: Fat Layer Exposed Amount of bleeding with debridement: Mild Bleeding Controlled with: Compression and gauze Patient tolerated procedure: Patient tolerated procedure well Post-Debridement Measurements and Additional Note: Post-Debridement Measurements/Treatment - Nurse 1 - General Ulcer Assessment Start: 10/25/23 10:26 Freq: Status: Active Protocol: LAEX Activity Type Activity Date Activity User E-sign Co-sign Detail Recorded Client Recorded Date Recorded By Document 10/25/23 10:26 DL Desktop 10/25/23 10:33 DL Document 11/01/23 10:00 DL Desktop 11/01/23 10:05 DL Document 11/08/23 09:36 KW Desktop 11/08/23 09:45 KW Document 11/15/23 10:15 BMF Desktop 11/15/23 10:21 BMF Document 11/22/23 09:58 JF Laptop 11/22/23 09:59 JF 10/25/23 11/01/23 11/08/23 10:26 10:00 09:36 - Today's Visit Information Type of service Follow-up Visit Follow-up Visit Follow-up Visit (Physician/LINING VAMPER (Physician/LINING VAMPER (Physician/LINING VAMPER ) ) ) Arrival Mode Ambulatory, Ambulatory Ambulatory, Walker Walker Arrival Mode (Other) Transfer Assistance None None Accompanied by SISTER Patient Identification Verified (Name & Yes Yes Yes ) Patient Requires Transmission-Based No No Precautions Height and Weight Body Mass Index (BMI) 25.1 25.1 25.1 BMI Classification Overweight Overweight Overweight Vital Signs Temperature (97.8 F-99.1 F) 98.2 F 98.7 F 98.2 F Temperature Source Temporal Temporal Temporal Pulse Rate (60-100) 77 73 69 Pulse Location Monitor Monitor Monitor Respiratory Rate (12-18) 20 H 18 16 Respiratory rate source Observation Observation Observation Oxygen Delivery Method Room Air Blood Pressure (90/60-120/80) 150/60 H 127/72 H 146/50 H Blood Pressure Mean (mm Hg) 90 90 82 Source Monitor Monitor Monitor Position Semi-Fowlers Blood Pressure Location Left Arm History Since Last Visit- (Skip if this is Patient's initial visit) Have you changed medications since your No No No last visit? Any new allergies or adverse reactions No No No Had a fall/change in ADL's that may No No increase risk of falls Signs or symptoms of abuse and/or No No No neglect since last visit Have you been in the hospital since your No No No last visit? Has dressing in place as prescribed Yes Yes Yes Has compression in place as prescribed No Yes Yes Has offloadiing in place as prescribed N/A N/A N/A Experienced any changes in pain level or No No No management Left Footwear Regular Shoe Regular Shoe Right Footwear Regular Shoe Regular Shoe Pain Scale: 0-10 Numeric Is Patient Pain Free? Yes Yes Yes 11/15/23 11/22/23 10:15 09:58 WC - Today's Visit Information Type of service Follow-up Visit Follow-up Visit (Physician/LINING VAMPER (Physician/LINING VAMPER ) ) Arrival Mode Ambulatory,Cane Ambulatory, Walker Arrival Mode (Other) friend Transfer Assistance None Accompanied by private duty caregiver Patient Identification Verified (Name & Yes Yes ) Patient Requires Transmission-Based No No Precautions Height and Weight Body Mass Index (BMI) 25.1 25.1 BMI Classification Overweight Overweight Vital Signs Temperature (97.8 F-99.1 F) 97.5 F L 97.0 F L Temperature Source Temporal Temporal Pulse Rate (60-100) 65 66 Pulse Location Monitor Monitor Respiratory Rate (12-18) 16 18 Respiratory rate source Observation Observation Oxygen Delivery Method Room Air Blood Pressure (90/60-120/80) 151/55 H 160/49 H Blood Pressure Mean (mm Hg) 87 86 Source Monitor Monitor Position Sitting Semi-Fowlers Blood Pressure Location Left Arm Left Arm History Since Last Visit- (Skip if this is Patient's initial visit) Have you changed medications since your No No last visit? Any new allergies or adverse reactions No No Had a fall/change in ADL's that may No No increase risk of falls Signs or symptoms of abuse and/or No No neglect since last visit Have you been in the hospital since your No No last visit? Has dressing in place as prescribed Yes Yes Has compression in place as prescribed Yes Yes Has offloadiing in place as prescribed N/A N/A Experienced any changes in pain level or No No management Left Footwear Regular Shoe Regular Shoe Right Footwear Regular Shoe Regular Shoe Pain Scale: 0-10 Numeric Is Patient Pain Free? Yes Yes WC - Nurse 1 - General Ulcer Measurement Start: 10/25/23 10:26 Freq: Status: Active Protocol: Activity Type Activity Date Activity User E-sign Co-sign Detail Recorded Client Recorded Date Recorded By Document 10/25/23 10:26 DL Desktop 10/25/23 10:33 DL Document 11/01/23 10:00 DL Desktop 11/01/23 10:05 DL Document 11/08/23 09:36 KW Desktop 11/08/23 09:45 KW Document 11/15/23 10:15 BMF Desktop 11/15/23 10:21 BMF Document 11/22/23 09:58 JF Laptop 11/22/23 09:59 10/25/23 11/01/23 11/08/23 10:26 10:00 09:36 Wound Center Nurse 1 #15 R Med Ankle -Combined with other wound -Current Size (cm) - Length 1.6 1.8 2.0 -Current Size (cm) - Width 0.4 0.5 0.3 -Current Size (cm) - Depth 0.1 0.1 0.1 -Total Square Cm 0.64 0.90 0.60 -Photo Taken Yes -Epithelialization -Tunneling -Undermining/Tunneling -Circular Undermining -Exudate Amt Small Medium Small -Exudate Type Serosanguineous Serosanguineous Serosanguineous -Wound Margin Distinct, Distinct, Distinct, Outline Outline Outline Attached Attached Attached -Granulation Amt Small (1-33%) Small (1-33%) Medium (34-66%) -Granulation Quality [place] -Slough/Fibrin -Necrosis Amt Small (1-33%) Small (1-33%) Large (67-100%) -Necrotic Tissue Type Adherent Slough Adherent Slough Adherent Slough -Structure Exposed N/A N/A -Texture (Vangie-wound Skin Appearance) Localized Edema Scarring Assessed ,Scarring -Moisture (Vangie-wound Skin Appearance) Dry/Scaly Dry/Scaly Assessed -Color (Vangie-wound Skin Appearance) Hemosiderin Hemosiderin Assessed Staining Staining -Temperature (Vangie-wound Skin No Abnormality No Abnormality No Abnormality Appearance) (Pt Warm) (Pt Warm) (Pt Warm) -Tenderness on Palpation (Vangie-wound No No Skin Appearance) -Ulcer Cleansing Rinsed/ Soap and Water Soap and Water Irrigated with Saline -Foul Odor after Cleansing No No No -Anesthetic Used 5% Lidocaine 5% Lidocaine 5% Lidocaine Gel Gel Gel -Wound Comment(s) epifix intact. Lower Limb Edema Present Right Calf (cm) 37 35.5 36.7 Right Ankle (cm) 22 22 21.5 Left Calf (cm) 40.1 Left Ankle (cm) 24.2 11/15/23 11/22/23 10:15 09:58 Wound Center Nurse 1 #15 R Med Ankle -Combined with other wound No No -Current Size (cm) - Length 0.1 0.1 -Current Size (cm) - Width 0.1 0.1 -Current Size (cm) - Depth 0.1 0.1 -Total Square Cm 0.01 0.01 -Photo Taken Yes -Epithelialization Large 67-100% Large 67-100% -Tunneling No No -Undermining/Tunneling No No -Circular Undermining No No -Exudate Amt Medium None Present -Exudate Type Serosanguineous -Wound Margin Flat & Intact Indistinct, Non -Visible -Granulation Amt Large (67-100%) None Present (0 %) -Granulation Quality [place] -Slough/Fibrin Yes No -Necrosis Amt Medium (34-66%) -Necrotic Tissue Type Adherent Slough -Structure Exposed N/A -Texture (Vangie-wound Skin Appearance) Assessed, Assessed Scarring -Moisture (Vangie-wound Skin Appearance) Assessed,Dry/ Assessed,Dry/ Scaly Scaly -Color (Vangie-wound Skin Appearance) Assessed Assessed -Temperature (Vangie-wound Skin No Abnormality No Abnormality Appearance) (Pt Warm) (Pt Warm) -Tenderness on Palpation (Vangie-wound No No Skin Appearance) -Ulcer Cleansing Soap and Water Wound Cleanser -Foul Odor after Cleansing No No -Anesthetic Used 5% Lidocaine 5% Lidocaine Gel Gel -Wound Comment(s) Lower Limb Edema Present NA Right Calf (cm) 35.6 Right Ankle (cm) 22 Left Calf (cm) Left Ankle (cm) WC - Nurse 2 - General Ulcer CM Notes Start: 10/25/23 10:26 Freq: Status: Active Protocol: Activity Type Activity Date Activity User E-sign Co-sign Detail Recorded Client Recorded Date Recorded By Document 10/25/23 11:07 Laptop 10/25/23 11:17 Document 11/01/23 10:30 Laptop 11/01/23 10:32 Document 11/08/23 10:09 Laptop 11/08/23 10:17 Document 11/15/23 11:03 Laptop 11/15/23 11:17 Document 11/22/23 09:59 Laptop 11/22/23 10:05 10/25/23 11/01/23 11/08/23 11:07 10:30 10:09 Wound Center Nurse 2 #15 R Med Ankle -Time 11:14 10:30 10:09 -Correct Patient Yes Yes Yes -Correct Side, Site, Position Yes Yes Yes -Correct Procedure Yes Yes Yes -Procedure Performed Yes Yes Yes -Type of Procedure Debridement Debridement Debridement -Clinical Debridement Subcutaneous Subcutaneous Subcutaneous -Tissue Removed Subcutaneous Subcutaneous Subcutaneous -Post Debridement (cm) - Length 2.0 2.3 2.2 -Post Debridement (cm) - Width 0.4 0.5 0.4 -Post Debridement (cm) - Depth 0.1 0.1 0.1 -Total Square (Post) (cm) 0.80 1.15 0.88 -Area of Debridement (cm) - Length 2.0 2.3 2.2 -Area of Debridement (cm) - Width 0.4 0.5 0.4 -Total Square (Area) (cm) 0.80 1.15 0.88 -Tunneling No No No -Undermining/Tunneling No No No -Circular Undermining No No No -Wound/Ulcer Outcome Not Healed Not Healed Not Healed -Ulcer Cleansing Rinsed/ Rinsed/ Rinsed/ Irrigated with Irrigated with Irrigated with Saline Saline Saline -Foul Odor after Cleansing No No No -Bioengineered Tissue Yes Yes Yes -Type of Bioengineered Tissue Epifix 18mm Epifix 18mm Epifix 18mm Disc Disc Disc -Expiration Date 05/26/28 05/26/28 05/26/28 -Product Lot Number [id number] -Percent Used 100 100 100 -Lot number of Saline Used [id number] -Bleeding Controlled with Pressure Pressure Pressure -Treatment Response Procedure Procedure Procedure Tolerated Well Tolerated Well Tolerated Well -Offloading No No No -Debridement - Subq, 1st 20sq cm No No No -Apply Skin Sub - 1st 25 sq cm - Legs 1 1 1 -Epifix 18mm Disc 3 3 3 Pain Scale: 0-10 Numeric Is Patient Pain Free? Yes Yes Yes 11/15/23 11/22/23 11:03 09:59 Wound Center Nurse 2 #15 R Med Ankle -Time 11:03 10:00 -Correct Patient Yes Yes -Correct Side, Site, Position Yes Yes -Correct Procedure Yes Yes -Procedure Performed Yes Yes -Type of Procedure Debridement Debridement -Clinical Debridement Subcutaneous Subcutaneous -Tissue Removed Subcutaneous Subcutaneous -Post Debridement (cm) - Length 3.0 -Post Debridement (cm) - Width 0.5 -Post Debridement (cm) - Depth 0.1 -Total Square (Post) (cm) 1.50 -Area of Debridement (cm) - Length 3.0 -Area of Debridement (cm) - Width 0.5 -Total Square (Area) (cm) 1.50 -Tunneling No No -Undermining/Tunneling No No -Circular Undermining No No -Wound/Ulcer Outcome Not Healed Not Healed -Ulcer Cleansing Rinsed/ Rinsed/ Irrigated with Irrigated with Saline Saline -Foul Odor after Cleansing No No -Bioengineered Tissue Yes No -Type of Bioengineered Tissue Epifix 18mm Disc -Expiration Date 05/26/28 -Product Lot Number [id number] -Percent Used 100 -Lot number of Saline Used [id number] -Bleeding Controlled with Pressure Pressure -Treatment Response Procedure Procedure Tolerated Well Tolerated Well -Offloading No No -Debridement - Subq, 1st 20sq cm No Yes -Apply Skin Sub - 1st 25 sq cm - Legs 1 -Epifix 18mm Disc 3 Pain Scale: 0-10 Numeric Is Patient Pain Free? Yes Yes WC - Nurse 3 - General Ulcer D/C NN Start: 10/25/23 10:26 Freq: Status: Active Protocol: Activity Type Activity Date Activity User E-sign Co-sign Detail Recorded Client Recorded Date Recorded By Document 10/25/23 11:17 JF Laptop 10/25/23 11:20 Document 11/01/23 10:33 JF Laptop 11/01/23 10:34 Document 11/08/23 10:27 JF Laptop 11/08/23 10:27 Document 11/15/23 11:22 DL Laptop 11/15/23 11:23 DL Document 11/22/23 10:13 [facility] Desktop 11/22/23 10:14 [facility] 10/25/23 11/01/23 11/08/23 11:17 10:33 10:27 Wound Care Center Nurse 3 #15 R Med Ankle -Ulcer Cleansing Rinsed/ Rinsed/ Irrigated with Irrigated with Saline Saline -Foul Odor after Cleansing -Primary Dressing Applied Optilok 6.5x10 Mepilex Border Mepilex Border -Other Dressing -Primary Dressing Covered/Secured with Dry Gauze Dry Gauze -Other Covering -Mepilex Border 1 1 -Optilok 6.5x10 1 Right -Tubular Bandage Single Layer Single Layer Single Layer -Size of Tubigrip Used Size E Size E Size E -Size E ($) 1 1 1 Left -Tubular Bandage Single Layer -Size of Tubigrip Used Size E -Size E ($) 1 Treatment Response Pain Scale: 0-10 Numeric Is Patient Pain Free? Yes Yes Yes WC - Visit Discharge Discharge Condition Stable Stable Stable Ambulatory Status Ambulatory, Ambulatory Ambulatory Walker Transportation Private Auto Private Auto Accompanied by caregiver caregiver Medication Reconcilliation completed & Yes Yes Yes provided to patient/care provider Clinical Summary of Care Provided Yes Yes Yes Facility Type Orders Sent 11/15/23 11/22/23 11:22 10:13 Wound Care Center Nurse 3 #15 R Med Ankle -Ulcer Cleansing Rinsed/ Irrigated with Saline -Foul Odor after Cleansing No No -Primary Dressing Applied Mepilex Border Mepilex Border -Other Dressing theraskin hydrogel -Primary Dressing Covered/Secured with -Other Covering tubigrip -Mepilex Border 1 1 -Optilok 6.5x10 Right -Tubular Bandage Single Layer -Size of Tubigrip Used Size E -Size E ($) 1 Left -Tubular Bandage -Size of Tubigrip Used -Size E ($) Treatment Response Procedure Procedure Tolerated Well Tolerated Well Pain Scale: 0-10 Numeric Is Patient Pain Free? Yes Yes WC - Visit Discharge Discharge Condition Stable Stable Ambulatory Status Ambulatory, Cane,Walker Walker Transportation Private Auto Private Auto Accompanied by caregiver Medication Reconcilliation completed & provided to patient/care provider Clinical Summary of Care Provided Facility Type Nursing Home Care Facility Orders Sent Yes Assessment/Plan Assessment/Plan (1) Chronic ulcer of right ankle: CODE(S): L97.319 - Non-pressure chronic ulcer of right ankle with unspecified severity QUALIFIERS: Non-pressure ulcer stage: with fat layer exposed Qualified Code(s): L97.312 - Non-pressure chronic ulcer of right ankle with fat layer exposed (2) Other complications of skin graft (allograft) (autograft): CODE(S): T86.828 - Other complications of skin graft (allograft) (autograft) (3) 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 She has a chronic, non healing ulcer on her right medial ankle that has not been healing with traditional wound care. She has been approved for Epifix, which she has had 4 applications. Her ulcer is almost healed. Wound care - Epifix #4 placed last week. Will start Collagen hydrogel covered with [place] SAP every other day. If the wound bed is looking too dry, may add adaptic before covering with the [place] SAP. Compression - Single layer tubigrip bilaterally. Her edema is controlled. The erythema has resolved. She has completed her Doxycycline. Follow up one week.
== END 2023-11-23 23:59 | disposition home or self-care (01) ==
LOC: WC 09:45
PROVIDERS: PCP Family Medicine; Referring Provider Nurse Practitioner Family; Visit Provider Nurse Practitioner Family
DX: L97.312 Non-pressure chronic ulcer of right ankle with fat layer exposed (principal); I50.9 Heart failure, unspecified; I48.91 Unspecified atrial fibrillation; T86.828 Other complications of skin graft (allograft) (autograft); Z85.828 Personal history of other malignant neoplasm of skin; Z87.891 Personal history of nicotine dependence; L57.0 Actinic keratosis; Z79.01 Long term (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; I87.2 Venous insufficiency (chronic) (peripheral)
CPT/HCPCS: 11042; 15271; Q4186

== ENCOUNTER 2023-12-13 10:45 | Outpatient (RCR) | payer MEDICARE, OTHER, SELFPAY ==
[2023-11-24 00:11] VITALS: BP 160/49; PULSE 66; RESP 18; TEMP 36.1; BMI 25.1
[2023-11-29 09:46] VITALS: BP 146/50; PULSE 68; RESP 18; TEMP 36.7; BMI 25.1
--- NOTE | 2023-11-29 11:00 | PCM.WC.PN ---
History of Present Illness Date of Service: 11/29/23 Chief Complaint: Right medial ankle ulcer History of Wound: 88 year old female who is known to me. She has previously been seen at the wound center for a right medial ankle ulcer secondary to some compromise to the healing skin graft. She has a non healing ulcer on her right medial ankle after her surgery on 05/13/23 where she underwent surgical preparation left medial knee with excision 3 cm painful nonhealing squamous cell carcinoma ulcer and STSG reconstruction from the left flank (20 cm2), which has healed, and Surgical preparation right medial ankle with excision 2.5 cm painful nonhealing squamous cell carcinoma ulcer and STSG reconstruction from the left flank (17.5 cm2). She developed compromise of the right medial ankle skin graft. It has not been healing with conservative treatment in our office, so she is being transferred to the wound center for an advanced skin substitute, such as Epifix. Pathology of ight medial ankle ulcer showed acute and chronic inflammation and granulation tissue reaction, pseudoepitheliomatous hyperplasia, negative for malignancy. The left medial knee non healing ulcer showed extensive ulceration, acute and chronic inflammation and granulation tissue reaction, pseudoepitheliomatous hyperplasia, mirlande elastosis and focal foreign body giant reaction, negative for malignancy. Operative culture from 05/13/23 of right medial ankle positive for Staphylococcus aureus and Staphylococcus capitis and Anaerobic cocci. Left medial knee was positive for Staphylococcus aureus. She has a history of excision of multiple Squamous cell carcinomas, Actinic keratosis, Afib, chronic anticoagulation, CHF, chronic venous insufficiency, rheumatoid arthritis which she used to be on methotrexate. She had 4 applications of Epifix. Today she states she feels well and denies fever, chills, nausea and vomiting. Progress of Wound: Right medial ankle ulcer is healed today. She has some excoriation present distal to the area where her sock or shoe rubbed on the skin. The skin is still intact. She has a new cluster on her left anterior leg from her scratching that has some scabbing and irritation. Objective Data Objective Data Vital Signs: Vital Signs Temp Pulse Resp BP O2 Del Method 98.0 F 68 18 146/50 H Room Air 11/29/23 09:46 11/29/23 09:46 11/29/23 09:46 11/29/23 09:46 11/29/23 09:46 Oxygen Delivery Method Room Air Weight: 155 lb 11.464 oz Body Mass Index (BMI) 25.1 Charges/Coding Procedures Integumentary [id number]: [id number] Lian subq tissue 20 sq cm/< Debridement Note Debridement Note Wound debrided: anterior leg cluster Laterality: Left Wound Grade/Stage: stage II Type of Debridement: Excisional debridement Anesthesia Used: 5% Lidocaine Gel Depth: Down to and including healthy tissue and in the subcutaneous layer Percentage of wound debrided: 100 Instrument Used: 3mm curette Tissue Removed: Non viable tissue and slough Severity: Limited To Skin Breakdown Amount of bleeding with debridement: Mild Bleeding Controlled with: Compression and gauze Patient tolerated procedure: Patient tolerated procedure well Post-Debridement Measurements and Additional Note: Post-Debridement Measurements/Treatment - Nurse 1 - General Ulcer Assessment Start: 11/29/23 09:46 Freq: Status: Active Protocol: [email or web address] Activity Type Activity Date Activity User E-sign Co-sign Detail Recorded Client Recorded Date Recorded By Document 11/29/23 09:46 KW Desktop 11/29/23 09:58 KW 11/29/23 09:46 - Today's Visit Information Type of service Follow-up Visit (Physician/MANAGER AUTO ) Arrival Mode Ambulatory, Walker Accompanied by sister Patient Identification Verified (Name & Yes ) Height and Weight Body Mass Index (BMI) 25.1 BMI Classification Overweight Vital Signs Temperature (97.8 F-99.1 F) 98.0 F Temperature Source Temporal Pulse Rate (60-100) 68 Pulse Location Monitor Respiratory Rate (12-18) 18 Respiratory rate source Observation Oxygen Delivery Method Room Air Blood Pressure (90/60-120/80) 146/50 H Blood Pressure Mean (mm Hg) 82 Source Monitor Position Semi-Fowlers Blood Pressure Location Left Arm History Since Last Visit- (Skip if this is Patient's initial visit) Have you changed medications since your No last visit? Any new allergies or adverse reactions No Had a fall/change in ADL's that may No increase risk of falls Signs or symptoms of abuse and/or No neglect since last visit Have you been in the hospital since your No last visit? Has dressing in place as prescribed Yes Has compression in place as prescribed Yes Has offloadiing in place as prescribed No Experienced any changes in pain level or No management Left Footwear Regular Shoe Right Footwear Regular Shoe Pain Scale: 0-10 Numeric Is Patient Pain Free? Yes WC - Nurse 1 - General Ulcer Measurement Start: 11/29/23 09:46 Freq: Status: Active Protocol: Activity Type Activity Date Activity User E-sign Co-sign Detail Recorded Client Recorded Date Recorded By Document 11/29/23 09:46 KW Desktop 11/29/23 09:58 KW 11/29/23 09:46 Wound Center Nurse 1 #16 LT LE CLUSTER -Current Size (cm) - Length 5.5 -Current Size (cm) - Width 2 -Current Size (cm) - Depth 0.1 -Total Square Cm 11.0 -Photo Taken Yes -Exudate Amt Small -Wound Margin Distinct, Outline Attached -Granulation Amt Small (1-33%) -Granulation Quality [place] -Necrosis Amt Medium (34-66%) -Necrotic Tissue Type Adherent Slough -Texture (Vangie-wound Skin Appearance) Assessed -Moisture (Vangie-wound Skin Appearance) Assessed -Color (Vangie-wound Skin Appearance) Assessed -Temperature (Vangie-wound Skin No Abnormality Appearance) (Pt Warm) -Tenderness on Palpation (Vangie-wound No Skin Appearance) -Ulcer Cleansing Rinsed/ Irrigated with Saline -Anesthetic Used 5% Lidocaine Gel -Wound Comment(s) SCABBED #15 R Med Ankle -Current Size (cm) - Length 2 -Current Size (cm) - Width 0.5 -Current Size (cm) - Depth 0.1 -Total Square Cm 1.0 -Photo Taken Yes -Wound Margin Distinct, Outline Attached -Texture (Vangie-wound Skin Appearance) Assessed -Moisture (Vangie-wound Skin Appearance) Assessed -Color (Vangie-wound Skin Appearance) Assessed -Temperature (Vangie-wound Skin No Abnormality Appearance) (Pt Warm) -Tenderness on Palpation (Vangie-wound No Skin Appearance) -Ulcer Cleansing Rinsed/ Irrigated with Saline -Foul Odor after Cleansing No -Anesthetic Used 5% Lidocaine Gel -Wound Comment(s) blistered Right Calf (cm) 37 Right Ankle (cm) 25 Left Calf (cm) 39 Left Ankle (cm) 24 WC - Nurse 2 - General Ulcer CM Notes Start: 11/29/23 09:46 Freq: Status: Active Protocol: Activity Type Activity Date Activity User E-sign Co-sign Detail Recorded Client Recorded Date Recorded By Document 11/29/23 10:07 Desktop 11/29/23 10:12 11/29/23 10:07 Wound Center Nurse 2 #16 LT LE CLUSTER -Time 10:09 -Correct Patient Yes -Correct Side, Site, Position Yes -Correct Procedure Yes -Procedure Performed Yes -Type of Procedure Debridement -Clinical Debridement Subcutaneous -Tissue Removed Subcutaneous -Post Debridement (cm) - Length 0.5 -Post Debridement (cm) - Width 1.0 -Post Debridement (cm) - Depth 0.1 -Total Square (Post) (cm) 0.50 -Area of Debridement (cm) - Length 0.5 -Area of Debridement (cm) - Width 1.0 -Total Square (Area) (cm) 0.50 -Tunneling No -Undermining/Tunneling No -Circular Undermining No -Wound/Ulcer Outcome Not Healed -Ulcer Cleansing Not Cleansed -Foul Odor after Cleansing No -Bioengineered Tissue No -Bleeding Controlled with Pressure -Treatment Response Procedure Tolerated Well -Debridement - Subq, 1st 20sq cm Yes #15 R Med Ankle -Time 10:07 -Correct Patient Yes -Correct Side, Site, Position Yes -Wound/Ulcer Outcome Healed- Epithelialized Pain Scale: 0-10 Numeric Is Patient Pain Free? Yes - Nurse 3 - General Ulcer D/C NN Start: 11/29/23 09:46 Freq: Status: Active Protocol: Activity Type Activity Date Activity User E-sign Co-sign Detail Recorded Client Recorded Date Recorded By Document 11/29/23 10:30 [facility] Desktop 11/29/23 10:32 [facility] 11/29/23 10:30 Wound Care Center Nurse 3 #16 LT LE CLUSTER -Ulcer Cleansing Rinsed/ Irrigated with Saline -Foul Odor after Cleansing No -Primary Dressing Applied C Hydrogel ($), Mepilex Border, NonAdherent Contact Layer -Mepilex Border 1 #15 R Med Ankle -Ulcer Cleansing Rinsed/ Irrigated with Saline -Foul Odor after Cleansing No -Other Dressing pad and protect -Primary Dressing Covered/Secured with Dry Gauze & Roll Gauze, Secured with Tape ble -Other pt prefers own personal stockings- applied Treatment Response Procedure Tolerated Well Pain Scale: 0-10 Numeric Is Patient Pain Free? 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 She receive Epifix 4 applications to her right medial ankle. Her right medial ankle is healed today. She has some excoriation distal to the ulcer where her sock or shoe rubbed on it, but the skin is still intact. Will have her massage lotion into this area 1-2 times a day to help soften the scarring. She may cover this area with gauze to prevent rubbing if needed. She has a new wound cluster on her right anterior leg from scratching. There was some dried scabbing removed. The wound bed is beefy pink, and clinically no sign of infection. Wound care - Collagen hydrogel covered with adapt and topped with either gauze or [place] SAP ideally daily, but it can be done every other day, if that is all her caregiver is able to do. Compression - Single layer tubigrip bilaterally. She has an appointment next week with Dr. Bergman in our office. If her left anterior leg wound cluster is not healed at that time, she will follow up here in 2 weeks.
--- NOTE | 2023-11-30 14:49 | WC ---
11/29/2023 LEFT LOWER EXT CLUSTER
--- NOTE | 2023-11-30 14:50 | WC ---
11/29/2023 RIGHT MEDIAL ANKLE
[2023-12-13 10:57] VITALS: BP 146/47; PULSE 82; RESP 20; TEMP 36.8; BMI 25.1
--- NOTE | 2023-12-13 12:15 | PCM.WC.PN ---
History of Present Illness Date of Service: 12/13/23 Chief Complaint: Right medial ankle ulcer History of Wound: 88 year old female who is known to me. She has previously been seen at the wound center for a right medial ankle ulcer secondary to some compromise to the healing skin graft. She has a non healing ulcer on her right medial ankle after her surgery on 05/13/23 where she underwent surgical preparation left medial knee with excision 3 cm painful nonhealing squamous cell carcinoma ulcer and STSG reconstruction from the left flank (20 cm2), which has healed, and Surgical preparation right medial ankle with excision 2.5 cm painful nonhealing squamous cell carcinoma ulcer and STSG reconstruction from the left flank (17.5 cm2). She developed compromise of the right medial ankle skin graft. It has not been healing with conservative treatment in our office, so she is being transferred to the wound center for an advanced skin substitute, such as Epifix. Pathology of ight medial ankle ulcer showed acute and chronic inflammation and granulation tissue reaction, pseudoepitheliomatous hyperplasia, negative for malignancy. The left medial knee non healing ulcer showed extensive ulceration, acute and chronic inflammation and granulation tissue reaction, pseudoepitheliomatous hyperplasia, mirlande elastosis and focal foreign body giant reaction, negative for malignancy. Operative culture from 05/13/23 of right medial ankle positive for Staphylococcus aureus and Staphylococcus capitis and Anaerobic cocci. Left medial knee was positive for Staphylococcus aureus. She has a history of excision of multiple Squamous cell carcinomas, Actinic keratosis, Afib, chronic anticoagulation, CHF, chronic venous insufficiency, rheumatoid arthritis which she used to be on methotrexate. She had 4 applications of Epifix. Today she states she feels well and denies fever, chills, nausea and vomiting. Progress of Wound: Right medial ankle ulcer remains healed today. The excoriation present distal to the area where her sock or shoe rubbed on the skin is also healed. The cluster on her left anterior leg from her scratching that has some scabbing and irritation is also healed today. Objective Data Objective Data Vital Signs: Vital Signs Temp Pulse Resp BP O2 Del Method 98.3 F 82 20 H 146/47 H Room Air 12/13/23 10:57 12/13/23 10:57 12/13/23 10:57 12/13/23 10:57 11/29/23 09:46 Oxygen Delivery Method Room Air Weight: 155 lb 11.464 oz Body Mass Index (BMI) 25.1 Charges/Coding Visit Charges Office Visits / Consults: 14129 OV L3 Est 20min Physical Exam Const alert and oriented x3 General Appearance: cooperative HEENT normocephalic Head and Scalp: atraumatic Eyes General Eye: normal appearance of both eyes Lymph Lymphatic: no lymphedema noted Resp normal respiratory effort, normal air movement and clear to auscultation bilaterally Effort and Inspection: able to speak in complete sentences Cardio regular rate GI soft to palpation and non-tender Extremity normal to inspection and normal capillary refill Skin Skin Narrative: Right medial ankle ulcer remains healed. The excoriation and area where had been scratching her leg has also healed. Neuro oriented x3 Psych mental status grossly normal, thought process normal and cooperative Debridement Note Debridement Note Post-Debridement Measurements and Additional Note: Post-Debridement Measurements/Treatment WC - Nurse 1 - General Ulcer Assessment Start: 11/29/23 09:46 Freq: Status: Active Protocol: ALEX Activity Type Activity Date Activity User E-sign Co-sign Detail Recorded Client Recorded Date Recorded By Document 11/29/23 09:46 KW Desktop 11/29/23 09:58 KW Document 12/13/23 10:57 DL [email or web address] 12/13/23 11:02 DL 11/29/23 12/13/23 09:46 10:57 - Today's Visit Information Type of service Follow-up Visit Follow-up Visit (Physician/MACHINE TOOL REBUILDER (Physician/MACHINE TOOL REBUILDER ) ) Arrival Mode Ambulatory, Ambulatory Walker Transfer Assistance None Accompanied by sister Patient Identification Verified (Name & Yes Yes ) Patient Requires Transmission-Based No Precautions Height and Weight Body Mass Index (BMI) 25.1 25.1 BMI Classification Overweight Overweight Vital Signs Temperature (97.8 F-99.1 F) 98.0 F 98.3 F Temperature Source Temporal Temporal Pulse Rate (60-100) 68 82 Pulse Location Monitor Monitor Respiratory Rate (12-18) 18 20 H Respiratory rate source Observation Observation Oxygen Delivery Method Room Air Blood Pressure (90/60-120/80) 146/50 H 146/47 H Blood Pressure Mean (mm Hg) 82 80 Source Monitor Monitor Position Semi-Fowlers Blood Pressure Location Left Arm History Since Last Visit- (Skip if this is Patient's initial visit) Have you changed medications since your No No last visit? Any new allergies or adverse reactions No No Had a fall/change in ADL's that may No No increase risk of falls Signs or symptoms of abuse and/or No No neglect since last visit Have you been in the hospital since your No No last visit? Has dressing in place as prescribed Yes Yes Has compression in place as prescribed Yes Yes Has offloadiing in place as prescribed No N/A Experienced any changes in pain level or No Yes management Left Footwear Regular Shoe Right Footwear Regular Shoe Pain Scale: 0-10 Numeric Is Patient Pain Free? Yes Yes WC - Nurse 1 - General Ulcer Measurement Start: 11/29/23 09:46 Freq: Status: Active Protocol: Activity Type Activity Date Activity User E-sign Co-sign Detail Recorded Client Recorded Date Recorded By Document 11/29/23 09:46 KW Desktop 11/29/23 09:58 KW Document 12/13/23 10:57 DL [email or web address] 12/13/23 11:02 DL 11/29/23 12/13/23 09:46 10:57 Wound Center Nurse 1 #15 R Med Ankle -Current Size (cm) - Length 2 -Current Size (cm) - Width 0.5 -Current Size (cm) - Depth 0.1 -Total Square Cm 1.0 -Photo Taken Yes -Wound Margin Distinct, Outline Attached -Texture (Vangie-wound Skin Appearance) Assessed -Moisture (Vangie-wound Skin Appearance) Assessed -Color (Vangie-wound Skin Appearance) Assessed -Temperature (Vangie-wound Skin No Abnormality Appearance) (Pt Warm) -Tenderness on Palpation (Vangie-wound No Skin Appearance) -Ulcer Cleansing Rinsed/ Irrigated with Saline -Foul Odor after Cleansing No -Anesthetic Used 5% Lidocaine Gel -Wound Comment(s) blistered #16 LT LE CLUSTER -Current Size (cm) - Length 5.5 0.1 -Current Size (cm) - Width 2 0.1 -Current Size (cm) - Depth 0.1 0.1 -Total Square Cm 11.0 0.01 -Photo Taken Yes -Exudate Amt Small None Present -Wound Margin Distinct, Indistinct, Non Outline -Visible Attached -Granulation Amt Small (1-33%) Large (67-100%) -Granulation Quality [place] -Necrosis Amt Medium (34-66%) None Present (0 %) -Necrotic Tissue Type Adherent Slough -Structure Exposed N/A -Texture (Vangie-wound Skin Appearance) Assessed Scarring -Moisture (Vangie-wound Skin Appearance) Assessed Dry/Scaly -Color (Vangie-wound Skin Appearance) Assessed Hemosiderin Staining -Temperature (Vangie-wound Skin No Abnormality No Abnormality Appearance) (Pt Warm) (Pt Warm) -Tenderness on Palpation (Vangie-wound No Skin Appearance) -Ulcer Cleansing Rinsed/ Soap and Water Irrigated with Saline -Foul Odor after Cleansing No -Anesthetic Used 5% Lidocaine Gel -Wound Comment(s) SCABBED Right Calf (cm) 37 Right Ankle (cm) 25 Left Calf (cm) 39 Left Ankle (cm) 24 WC - Nurse 2 - General Ulcer CM Notes Start: 11/29/23 09:46 Freq: Status: Active Protocol: Activity Type Activity Date Activity User E-sign Co-sign Detail Recorded Client Recorded Date Recorded By Document 11/29/23 10:07 GM Desktop 11/29/23 10:12 GM Document 12/13/23 11:19 [place] [id number] 12/13/23 11:19 DS 11/29/23 12/13/23 10:07 11:19 Wound Center Nurse 2 #15 R Med Ankle -Time 10:07 -Correct Patient Yes -Correct Side, Site, Position Yes -Wound/Ulcer Outcome Healed- Epithelialized #16 LT LE CLUSTER -Time 10:09 11:19 -Correct Patient Yes No -Correct Side, Site, Position Yes No -Correct Procedure Yes No -Procedure Performed Yes No -Type of Procedure Debridement -Clinical Debridement Subcutaneous -Tissue Removed Subcutaneous -Post Debridement (cm) - Length 0.5 0 -Post Debridement (cm) - Width 1.0 0 -Post Debridement (cm) - Depth 0.1 0 -Total Square (Post) (cm) 0.50 0 -Area of Debridement (cm) - Length 0.5 0 -Area of Debridement (cm) - Width 1.0 0 -Total Square (Area) (cm) 0.50 0 -Tunneling No -Undermining/Tunneling No -Circular Undermining No -Wound/Ulcer Outcome Not Healed Healed- Epithelialized -Ulcer Cleansing Not Cleansed -Foul Odor after Cleansing No -Bioengineered Tissue No -Bleeding Controlled with Pressure -Treatment Response Procedure Tolerated Well -Debridement - Subq, 1st 20sq cm Yes Pain Scale: 0-10 Numeric Is Patient Pain Free? Yes Yes WC - Nurse 3 - General Ulcer D/C NN Start: 11/29/23 09:46 Freq: Status: Active Protocol: Activity Type Activity Date Activity User E-sign Co-sign Detail Recorded Client Recorded Date Recorded By Document 11/29/23 10:30 [facility] Desktop 11/29/23 10:32 [facility] 11/29/23 10:30 Wound Care Center Nurse 3 #15 R Med Ankle -Ulcer Cleansing Rinsed/ Irrigated with Saline -Foul Odor after Cleansing No -Other Dressing pad and protect -Primary Dressing Covered/Secured with Dry Gauze & Roll Gauze, Secured with Tape #16 LT LE CLUSTER -Ulcer Cleansing Rinsed/ Irrigated with Saline -Foul Odor after Cleansing No -Primary Dressing Applied C Hydrogel ($), Mepilex Border, NonAdherent Contact Layer -Mepilex Border 1 ble -Other pt prefers own personal stockings- applied Treatment Response Procedure Tolerated Well Pain Scale: 0-10 Numeric Is Patient Pain Free? 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 She receive Epifix 4 applications to her right medial ankle. Her right medial ankle remains healed. The excoriation distal to the ulcer where her sock or shoe rubbed on it has healed. Will have her massage lotion into this area 1-2 times a day to help soften the scarring. She may cover this area with gauze to prevent rubbing if needed. The wound cluster on her right anterior leg from scratching is healed. Massage lotion onto legs and feet to prevent them from being so dry. Compression - Single layer tubigrip bilaterally. She has an appointment with Dr. Bergman in our office later this week.
== END 2023-12-15 15:53 | disposition home or self-care (01) ==
LOC: WC 10:45
PROVIDERS: PCP Family Medicine; Referring Provider Nurse Practitioner Family; Visit Provider Nurse Practitioner Family
DX: L97.312 Non-pressure chronic ulcer of right ankle with fat layer exposed (principal); I48.91 Unspecified atrial fibrillation; Z79.01 Long term (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; I87.2 Venous insufficiency (chronic) (peripheral); T86.828 Other complications of skin graft (allograft) (autograft); Z85.828 Personal history of other malignant neoplasm of skin; Z87.891 Personal history of nicotine dependence; L57.0 Actinic keratosis; S81.802A Unspecified open wound, left lower leg, initial encounter
CPT/HCPCS: 11042; 99213; G0463

== ENCOUNTER 2024-06-14 12:51 | Outpatient (RCR) | payer MEDICARE, OTHER, SELFPAY ==
[2024-06-14 13:10] VITALS: BP 114/63; PULSE 83; RESP 18; TEMP 36.6
--- NOTE | 2024-06-14 17:13 | HP.PCM_ITS ---
History of Present Illness Date of Service: 06/14/24 Chief Complaint: Right medial ankle ulcer History of Wound: 88 year old female who is known to me. She has previously been seen at the wound center for several ulcers on her lower legs. She presented to me a week ago for a skin check in the office, at that time she showed me her left anterior leg wound that she obtained several weeks ago from bumping it against a piece of furniture. She been covering it with dry gauze. After I saw her last week she started using moistened Chuyita and I referred her to the wound healing center. She has a history of excision of multiple Squamous cell carcinomas, Actinic keratosis, Afib, chronic anticoagulation, CHF, chronic venous insufficiency, rheumatoid arthritis which she used to be on methotrexate. Today she states she feels well and denies fever, chills, nausea and vomiting. Progress of Wound: Left anterior leg ulcer has a darkened area in the center most likely from an old hematoma. The ulcer is very painful to palpation. 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 History of MRSA infection Cutaneous horn Neoplasm of skin of hand Chronic ulcer of right ankle Neoplasm of skin of lower leg Diarrhea Other complications of skin graft (allograft) (autograft) 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 Personal history of skin cancer Neoplasm of skin of ankle Neoplasm of skin of lower leg Squamous cell carcinoma of left lower leg Skin cancer Rheumatoid arthritis Osteoarthritis IBS (irritable bowel syndrome) Carpal tunnel syndrome Breast lump Loss of hearing Wears glasses Wears partial dentures Anxiety Open wound Walker as ambulation aid Ambulates with cane Arthritis Incontinence of urine High cholesterol Back pain Restless legs History of hiatal hernia History of ulceration Gastric reflux Former smoker On home oxygen therapy Emphysema, unspecified Asthma COPD (chronic obstructive pulmonary disease) History of pain when walking History of edema History of echocardiogram Hypertension Cardiology follow-up encounter History of CHF (congestive heart failure) Hx of cardiac pacemaker Unspecified open wound, right knee, initial encounter Unspecified open wound, left knee, initial encounter Non-pressure chronic ulcer of right ankle with fat layer exposed Home Medications ?Medication ?Instructions ?Recorded ?Last Taken ?Type aspirin 81 mg chewable tablet 81 mg PO DAILY@0800 11/03/16 05/10/23 History calcium carbonate 250 mg PO BID 11/03/16 06/11/22 History hydroxychloroquine 200 mg tablet 200 mg PO BIDCM 11/03/16 06/04/22 History lactobacillus comb no.10 20 1 ea PO DAILY 11/03/16 06/11/22 History billion cell capsule (Probiotic) magnesium 250 mg tablet 400 mg PO BID 11/03/16 06/11/22 History sghyohyi-xpn-gbpfk acid 0.4 1 ea PO DAILY 11/03/16 Unknown History mg-lycopene 300 mcg-lutein 250 mcg tablet (Centrum Silver) simvastatin 20 mg tablet 20 mg PO LUNCH 11/03/16 06/11/22 History cholecalciferol (vitamin D3) 50 50 mcg PO DAILY 06/05/22 06/04/22 History mcg (2,000 unit) capsule (Vitamin D3) fluticasone fur. 200 mcg-umeclid 1 inh inhalation DAILY 06/05/22 02/15/23 History 62.5 mcg-vilant 25 mcg inhalat.powder (Trelegy Ellipta) folic acid 1 mg tablet 2 mg PO LUNCH 06/05/22 06/11/22 History amlodipine 2.5 mg tablet 2.5 mg PO DAILY 07/07/22 05/13/23 History mirabegron 25 mg tablet,extended 25 mg PO DAILY 07/07/22 Unknown History release 24 hr (Myrbetriq) nebulizer and compressor (Comp-Air 07/07/22 Unknown History Nebulizer Compressor) omeprazole 20 mg capsule,delayed 40 mg PO DAILY 07/07/22 05/13/23 History release oxygen-air delivery systems 07/07/22 Unknown History pramipexole 1 mg tablet 1 mg PO QHS 07/07/22 Unknown History trazodone 50 mg tablet 50 mg PO QHS 07/07/22 Unknown History apixaban 2.5 mg tablet (Eliquis) 2.5 mg PO BID 09/17/22 05/10/23 History albuterol sulfate 1.25 mg/3 mL 1.25 mg inhalation PRN PRN SOB 12/03/22 Unknown History solution for nebulization albuterol sulfate 90 mcg/actuation 1 inh inhalation Q6H PRN SOB 12/03/22 Unknown History aerosol inhaler pramipexole 1 mg tablet 0.5 mg PO LUNCH 12/03/22 Unknown History ferrous sulfate 325 mg (65 mg 325 mg PO QHS 02/12/23 Unknown History iron) tablet (Feosol) prednisolone 5 mg tablet 5 mg PO BID 10/11/23 Unknown History doxycycline monohydrate 100 mg 100 mg PO BID 10 days #20 tabs 10/25/23 Unknown Rx tablet bumetanide 0.5 mg tablet 0.5 mg PO DAILY 06/14/24 Unknown History methotrexate sodium 2.5 mg tablet mg PO 06/14/24 Unknown History Allergy/AdvReac Type Severity Reaction Status Date / Time Sulfa (Sulfonamide Allergy Hives Verified 05/30/24 09:53 Antibiotics) Family History Mother Cancer multiple myeloma, diagnosed later in life Other Arthritis Heart disease High cholesterol Myocardial infarction Osteoarthritis Respiratory disease Surgical History History of excision of lesion History of skin graft History of squamous cell carcinoma excision Hx of toe surgery History of lumbar laminectomy Hx of colonoscopy Hx of tonsillectomy Hx of left cataract extraction Hx of right cataract extraction Hx of left knee surgery Hx of total hip arthroplasty Hx of total hip arthroplasty Social History pets and animals: Yes pets and animals: dog(s) Smoking Status: Former smoker quit date: 07/26/1956 Tobacco: How many years used: 20 alcohol intake: never details: Special Occasions substance use type: does not use what type of physical activity do you participate in: other details: PT 2-3 times a week additional social history: Does Take Aspirin low dose daily ROS Constitutional Constitutional: Denies fever(s), headache(s) or weakness Eyes Eyes: Reports requires corrective lenses ENT HEENT: Reports none Cardiovascular Cardiovascular: Denies chest pain or dyspnea Respiratory/Chest Respiratory/Chest: Denies cough or dyspnea Gastrointestinal Gastrointestinal: Reports none Genitourinary Genitourinary: Reports systems reviewed and no addt'l complaints, except as documented Musculoskeletal Musculoskeletal: Reports as per HPI Integumentary Integumentary: Reports skin ulcer Neurologic Neurologic: Denies dizziness Psychiatric Psychiatric: Reports none Endocrine Endocrinology: Reports none Hematologic/Lymphatic Hematologic/Lymphatic: Reports as per [facility] Vital Signs Vital Signs Vital Signs: 06/14/24 13:10 Temperature 97.8 F Temperature Source Temporal Pulse Rate 83 Respiratory Rate 18 Blood Pressure 114/63 Blood Pressure Mean 80 Blood Pressure Source Monitor Blood Pressure Position Sitting Blood Pressure Location Left Arm Oxygen Delivery Method Room Air Physical Exam Const alert and oriented x3 General Appearance: cooperative HEENT normocephalic Head and Scalp: atraumatic Eyes General Eye: normal appearance of both eyes Lymph Lymphatic: no lymphedema noted Resp normal respiratory effort, normal air movement and clear to auscultation bilaterally Effort and Inspection: able to speak in complete sentences Cardio regular rate GI soft to palpation and non-tender Extremity normal to inspection and normal capillary refill Skin Wound Narrative: Left anterior leg ulcer that is tender to palpation. It has had dry nonviable tissue covering it. There is a darkened area in the center that looks like it is dried blood from the trauma when she bumped her leg. Neuro oriented x3 Psych mental status grossly normal, thought process normal and cooperative Debridement Note Debridement Note Wound debrided: #17 Left anterior leg ulcer Laterality: Left Wound Grade/Stage: Stage III Type of Debridement: Excisional debridement Anesthesia Used: 5% Lidocaine Gel and Cetacaine Depth: Down to and including healthy tissue and in the subcutaneous layer Percentage of wound debrided: 100 Instrument Used: 7mm curette Tissue Removed: Nonviable tissue and slough Severity: Fat Layer Exposed Amount of bleeding with debridement: Mild Bleeding Controlled with: Pressure and Compression and gauze Patient tolerated procedure: Patient tolerated procedure well Post-Debridement Measurements and Additional Note: Post-Debridement Measurements/Treatment - Nurse 1 - General Ulcer Assessment Start: 06/14/24 13:09 Freq: Status: Active Protocol: ALEX Activity Type Activity Date Activity User E-sign Co-sign Detail Recorded Client Recorded Date Recorded By Document 06/14/24 13:10 [id number] 06/14/24 13:20 06/14/24 13:10 - Today's Visit Information Type of service Initial Visit Arrival Mode Ambulatory, Walker Transfer Assistance None Patient Identification Verified (Name & Yes ) Vital Signs Temperature (97.8 F-99.1 F) 97.8 F Temperature Source Temporal Pulse Rate (60-100) 83 Pulse Location Monitor Respiratory Rate (12-18) 18 Respiratory rate source Observation Oxygen Delivery Method Room Air Blood Pressure (90/60-120/80) 114/63 Blood Pressure Mean 80 Source Monitor Position Sitting Blood Pressure Location Left Arm History Since Last Visit- (Skip if this is Patient's initial visit) Left Footwear Regular Shoe Right Footwear Regular Shoe Pain Scale: 0-10 Numeric Is Patient Pain Free? Yes Lower Extremity Assessment/ Foot Assessment/ Toe Nail Assessment Left -Dorsalis Pedis Palpable Yes -Hair Growth on Legs No -Hair Growth on Toes No -Temperature of Extremity Warm -Capillary Refill Less than 3 Seconds -Dependent Rubor No -Blanched when Elevated No -Other Deformity No -Prior Foot Ulcer No -Charcot Joint No -Prior Amputation No -Thick Yes -Discolored Yes -Deformed Yes -Improper Length & Hygeine No WC - Nurse 1 - General Ulcer Measurement Start: 06/14/24 13:09 Freq: Status: Active Protocol: Activity Type Activity Date Activity User E-sign Co-sign Detail Recorded Client Recorded Date Recorded By Document 06/14/24 13:10 [id number] 06/14/24 13:20 06/14/24 13:10 Wound Center Nurse 1 #16 LT LE CLUSTER -Current Size (cm) - Length 3.5 -Current Size (cm) - Width 2.7 -Current Size (cm) - Depth 0.1 -Total Square Cm 9.45 -Date of Last Picture (Recall this 06/14/24 field) -Photo Taken Yes -Exudate Amt Small -Exudate Type Yellow/Green -Wound Margin Distinct, Outline Attached -Granulation Amt None Present (0 %) -Texture (Vangie-wound Skin Appearance) Assessed -Moisture (Vangie-wound Skin Appearance) Assessed -Color (Vangie-wound Skin Appearance) Assessed -Tenderness on Palpation (Vangie-wound No Skin Appearance) -Ulcer Cleansing Rinsed/ Irrigated with Saline -Foul Odor after Cleansing No -Anesthetic Used 5% Lidocaine Gel WC - Nurse 2 - General Ulcer CM Notes Start: 06/14/24 13:09 Freq: Status: Active Protocol: Activity Type Activity Date Activity User E-sign Co-sign Detail Recorded Client Recorded Date Recorded By Document 06/14/24 13:41 [id number] 06/14/24 13:43 06/14/24 13:41 Wound Center Nurse 2 #17 Left Lateral Power -Time 13:41 -Correct Patient Yes -Correct Side, Site, Position Yes -Correct Procedure Yes -Procedure Performed Yes -Type of Procedure Debridement -Clinical Debridement Subcutaneous -Tissue Removed Subcutaneous -Post Debridement (cm) - Length 4.0 -Post Debridement (cm) - Width 3.0 -Post Debridement (cm) - Depth 0.2 -Total Square (Post) (cm) 12.00 -Area of Debridement (cm) - Length 4.0 -Area of Debridement (cm) - Width 3.0 -Total Square (Area) (cm) 12.00 -Tunneling No -Undermining/Tunneling No -Circular Undermining No -Wound/Ulcer Outcome Not Healed -Ulcer Cleansing Rinsed/ Irrigated with Saline -Foul Odor after Cleansing No -Bioengineered Tissue No -Bleeding Controlled with Pressure -Treatment Response Procedure Tolerated Well -Debridement - Subq, 1st 20sq cm Yes Pain Scale: 0-10 Numeric Is Patient Pain Free? Yes - Nurse 3 - General Ulcer D/C NN Start: 06/14/24 13:09 Freq: Status: Active Protocol: Activity Type Activity Date Activity User E-sign Co-sign Detail Recorded Client Recorded Date Recorded By Document 06/14/24 13:57 [facility] [id number] 06/14/24 13:58 [facility] 06/14/24 13:57 Wound Care Center Nurse 3 #17 Left Lateral Power -Ulcer Cleansing Rinsed/ Irrigated with Saline -Foul Odor after Cleansing No -Primary Dressing Applied Mepilex Border, Promogran Hcuyita Matter -Mepilex Border 1 -Promogran Chuyita Matter 1 Left -Other own compression stocking reapplied Treatment Response Procedure Tolerated Well Pain Scale: 0-10 Numeric Is Patient Pain Free? Yes - Visit Discharge Discharge Condition Stable Ambulatory Status Ambulatory, Walker Transportation Private Auto Accompanied by friend Facility Type Skilled Nursing Care Facility Charges/Coding Visit Charges Office Visits / Consults: 50025 OV L3 Est 20min (25 modifier) Procedures Integumentary 111xxx-113xx: 29443 Lian subq tissue 20 sq cm/< Assessment/Plan Assessment/Plan (1) Ulcer of left lower extremity with fat layer exposed: CODE(S): L97.922 - Non-pressure chronic ulcer of unspecified part of left lower leg with fat layer exposed (2) senior care (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: CODE(S): Z79.01 - senior care (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 (3) Chronic venous insufficiency: (4) Leg edema, left: CODE(S): R60.0 - Localized edema (5) Personal history of skin cancer: CODE(S): Z85.828 - Personal history of other malignant neoplasm of skin (6) Former smoker: CODE(S): Z87.891 - Personal history of nicotine dependence PLAN: Plan Patient evaluated at the wound healing center today. She now lives in assisted living at [facility] in [place] Wound care?moistened Aquacel Ag covered with gauze or [place] SAP daily. She is t o wash her wound with soap and water at the time of the dressing change. She has been wearing compression stockings. Obtained a wound culture today since there is not much improvement since her last visit a week ago. She will follow-up in 2 weeks
--- NOTE | 2024-06-15 08:51 | WC ---
PHOTO 06/14/24 LEFT LATERAL GOMEZ
== END 2024-06-24 23:59 | disposition home or self-care (01) ==
LOC: WC 12:51
PROVIDERS: PCP Family Medicine; Referring Provider Nurse Practitioner Family; Visit Provider Nurse Practitioner Family
DX: L97.922 Non-pressure chronic ulcer of unspecified part of left lower leg with fat layer exposed (principal); Z87.891 Personal history of nicotine dependence; E78.00 Pure hypercholesterolemia, unspecified; I87.2 Venous insufficiency (chronic) (peripheral); Z79.51 Long term (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 inhaled steroids; Z79.01 Long term (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; Z79.82 Long term (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 aspirin; I10 Essential (primary) hypertension; R60.0 Localized edema; Z85.828 Personal history of other malignant neoplasm of skin; Z86.14 Personal history of Methicillin resistant Staphylococcus aureus infection
CPT/HCPCS: 11042; 87070; 87075; 87205; 99213; G0463

== ENCOUNTER 2024-07-17 09:30 | Outpatient (RCR) | payer MEDICARE, OTHER, SELFPAY ==
[2024-06-25 00:54] VITALS: BP 114/63; PULSE 83; RESP 18; TEMP 36.6
[2024-06-28 15:08] VITALS: BP 148/59; PULSE 73; RESP 16; TEMP 36.6
--- NOTE | 2024-06-28 17:08 | PCM.WC.PN ---
History of Present Illness Date of Service: 06/28/24 Chief Complaint: Right medial ankle ulcer History of Wound: 88 year old female who is known to me. She has previously been seen at the wound center for several ulcers on her lower legs. She presented to me a week ago for a skin check in the office, at that time she showed me her left anterior leg wound that she obtained several weeks ago from bumping it against a piece of furniture. She been covering it with dry gauze. After I saw her last week she started using moistened Chuyita and I referred her to the wound healing center. She has a history of excision of multiple Squamous cell carcinomas, Actinic keratosis, Afib, chronic anticoagulation, CHF, chronic venous insufficiency, rheumatoid arthritis which she used to be on methotrexate. Today she states she feels well and denies fever, chills, nausea and vomiting. Progress of Wound: Left anterior leg ulcer is very dry. It is still painful to palpation. Wound cultures were negative for bacterial growth. Objective Data Objective Data Vital Signs: Vital Signs Temp Pulse Resp BP 97.8 F 73 16 148/59 H 06/28/24 15:08 06/28/24 15:08 06/28/24 15:08 06/28/24 15:08 Charges/Coding Procedures Integumentary 111xxx-113xx: 49625 Lian subq tissue 20 sq cm/< Debridement Note Debridement Note Wound debrided: #17 Left anterior leg ulcer Laterality: Left Wound Grade/Stage: Stage III Type of Debridement: Excisional debridement Anesthesia Used: 5% Lidocaine Gel and Cetacaine Depth: Down to and including healthy tissue and in the subcutaneous layer Percentage of wound debrided: 100 Instrument Used: 5mm curette Tissue Removed: Nonviable tissue and slough Severity: Fat Layer Exposed Amount of bleeding with debridement: Mild Bleeding Controlled with: Pressure and Compression and gauze Patient tolerated procedure: Patient tolerated procedure well Post-Debridement Measurements and Additional Note: Post-Debridement Measurements/Treatment - Nurse 1 - General Ulcer Assessment Start: 06/28/24 15:08 Freq: Status: Active Protocol: ALEX Activity Type Activity Date Activity User E-sign Co-sign Detail Recorded Client Recorded Date Recorded By Document 06/28/24 15:08 ML [id number] 06/28/24 15:10 ML 06/28/24 15:08 - Today's Visit Information Type of service Follow-up Visit (Physician/BROOM STITCHER ) Arrival Mode Walker Transfer Assistance None Patient Identification Verified (Name & Yes ) Patient Requires Transmission-Based No Precautions Vital Signs Temperature (97.8 F-99.1 F) 97.8 F Temperature Source Temporal Pulse Rate (60-100) 73 Pulse Location Monitor Respiratory Rate (12-18) 16 Respiratory rate source Observation Blood Pressure (90/60-120/80) 148/59 H Blood Pressure Mean (mm Hg) 88 Source Monitor Position Sitting Blood Pressure Location Left Arm History Since Last Visit- (Skip if this is Patient's initial visit) Have you changed medications since your No last visit? Any new allergies or adverse reactions No Had a fall/change in ADL's that may No increase risk of falls Signs or symptoms of abuse and/or No neglect since last visit Have you been in the hospital since your No last visit? Has dressing in place as prescribed Yes Has compression in place as prescribed N/A Has offloadiing in place as prescribed N/A Experienced any changes in pain level or No management Pain Scale: 0-10 Numeric Is Patient Pain Free? Yes - Nurse 1 - General Ulcer Measurement Start: 06/28/24 15:08 Freq: Status: Active Protocol: Activity Type Activity Date Activity User E-sign Co-sign Detail Recorded Client Recorded Date Recorded By Document 06/28/24 15:08 ML [id number] 06/28/24 15:10 ML 06/28/24 15:08 Wound Center Nurse 1 #17 Left Lateral Power -Current Size (cm) - Length 3.5 -Current Size (cm) - Width 3 -Current Size (cm) - Depth 0.1 -Total Square Cm 10.5 -Exudate Amt Medium -Exudate Type Serosanguineous -Wound Margin Distinct, Outline Attached -Granulation Amt Medium (34-66%) -Slough/Fibrin Yes -Necrosis Amt Medium (34-66%) -Necrotic Tissue Type Adherent Slough -Texture (Vangie-wound Skin Appearance) Assessed -Moisture (Vangie-wound Skin Appearance) Assessed -Color (Vangie-wound Skin Appearance) Assessed -Temperature (Vangie-wound Skin No Abnormality Appearance) (Pt Warm) -Tenderness on Palpation (Vangie-wound No Skin Appearance) -Ulcer Cleansing Rinsed/ Irrigated with Saline -Foul Odor after Cleansing No -Anesthetic Used 5% Lidocaine Gel WC - Nurse 2 - General Ulcer CM Notes Start: 06/28/24 15:08 Freq: Status: Active Protocol: Activity Type Activity Date Activity User E-sign Co-sign Detail Recorded Client Recorded Date Recorded By Document 06/28/24 15:34 [id number] 06/28/24 15:43 GM 06/28/24 15:34 Wound Center Nurse 2 -Time 15:34 -Correct Patient Yes -Correct Side, Site, Position Yes -Correct Procedure Yes -Procedure Performed Yes -Type of Procedure Debridement -Clinical Debridement Subcutaneous -Tissue Removed Subcutaneous -Post Debridement (cm) - Length 3.8 -Post Debridement (cm) - Width 3.0 -Post Debridement (cm) - Depth 0.2 -Total Square (Post) (cm) 11.40 -Area of Debridement (cm) - Length 3.8 -Area of Debridement (cm) - Width 3.0 -Total Square (Area) (cm) 11.40 -Tunneling No -Undermining/Tunneling No -Circular Undermining No -Wound/Ulcer Outcome Not Healed -Ulcer Cleansing Rinsed/ Irrigated with Saline -Foul Odor after Cleansing No -Bioengineered Tissue No -Bleeding Controlled with Pressure -Treatment Response Procedure Tolerated Well -Debridement - Subq, 1st 20sq cm Yes Pain Scale: 0-10 Numeric Is Patient Pain Free? Yes - Nurse 3 - General Ulcer D/C NN Start: 06/28/24 15:08 Freq: Status: Active Protocol: Activity Type Activity Date Activity User E-sign Co-sign Detail Recorded Client Recorded Date Recorded By Document 06/28/24 16:03 DL [id number] 06/28/24 16:05 DL 06/28/24 16:03 Wound Care Center Nurse 3 #17 Left Lateral Power -Ulcer Cleansing Rinsed/ Irrigated with Saline -Foul Odor after Cleansing No -Primary Dressing Applied C Hydrogel ($) -Primary Dressing Covered/Secured with Dry Gauze & Roll Gauze, Secured with Tape -Wound Comment(s) Apply Santyl when available. Left -Stockings Yes Treatment Response Procedure Tolerated Well Pain Scale: 0-10 Numeric Is Patient Pain Free? 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 She now lives in assisted living at [facility] in [place] Wound care? Since the ulcer is very dry will start Santyl nickel thickness covered with moistened gauze topped with gauze daily. She is to wash her wound with soap and water at the time of the dressing change. She has been wearing compression stockings. Obtained a wound culture today since there is not much improvement since her last visit a week ago. She will follow-up in 1 week
[2024-07-05 15:40] VITALS: BP 157/75; PULSE 86; RESP 18; TEMP 36.3
--- NOTE | 2024-07-05 16:58 | PCM.WC.PN ---
History of Present Illness Date of Service: 07/05/24 Chief Complaint: Left anterior leg ulcer History of Wound: 88 year old female who is known to me. She has previously been seen at the wound center for several ulcers on her lower legs. She presented to me a week ago for a skin check in the office, at that time she showed me her left anterior leg wound that she obtained several weeks ago from bumping it against a piece of furniture. She been covering it with dry gauze. After I saw her last week she started using moistened Chuyita and I referred her to the wound healing center. She has a history of excision of multiple Squamous cell carcinomas, Actinic keratosis, Afib, chronic anticoagulation, CHF, chronic venous insufficiency, rheumatoid arthritis which she used to be on methotrexate. Today she states she feels well and denies fever, chills, nausea and vomiting. Progress of Wound: Left anterior leg ulcer is very dry with thick scab and it continues to be painful to palpation. She has some erythema on her left lower leg and it is slightly warm, suspect she is getting a cellulitis. Will start her on Keflex. She has a new small bruise on her right anterior leg where she has bumped her leg. Skin is still intact but fragile looking. Objective Data Objective Data Vital Signs: Vital Signs Temp Pulse Resp BP O2 Del Method 97.4 F L 86 18 157/75 H Room Air 07/05/24 15:40 07/05/24 15:40 07/05/24 15:40 07/05/24 15:40 07/05/24 15:40 Oxygen Delivery Method Room Air Charges/Coding Procedures Integumentary 111xxx-113xx: 97194 Lian subq tissue 20 sq cm/< Debridement Note Debridement Note Wound debrided: #17 Left anterior leg ulcer Laterality: Left Wound Grade/Stage: Stage III Type of Debridement: Excisional debridement Anesthesia Used: 5% Lidocaine Gel and Cetacaine Depth: Down to and including healthy tissue and in the subcutaneous layer Percentage of wound debrided: 100 Instrument Used: 5mm curette and #15 blade Tissue Removed: Nonviable tissue and slough Severity: Fat Layer Exposed Amount of bleeding with debridement: Mild Bleeding Controlled with: Pressure and Compression and gauze Patient tolerated procedure: Patient did not tolerate procedure well Debridement Free Text: Unable to completely debide wound due to her not tolerating it, placed hash childers in dry tissue to help Santyl get under non viable tissue Post-Debridement Measurements and Additional Note: Post-Debridement Measurements/Treatment WC - Nurse 1 - General Ulcer Assessment Start: 06/28/24 15:08 Freq: Status: Active Protocol: ALEX Activity Type Activity Date Activity User E-sign Co-sign Detail Recorded Client Recorded Date Recorded By Document 06/28/24 15:08 ML [id number] 06/28/24 15:10 ML Document 07/05/24 15:40 KW [id number] 07/05/24 15:47 KW 06/28/24 07/05/24 15:08 15:40 WC - Today's Visit Information Type of service Follow-up Visit Follow-up Visit (Physician/TRACK LAMINATING MACHINE TENDER (Physician/TRACK LAMINATING MACHINE TENDER ) ) Arrival Mode Walker Ambulatory, Walker Transfer Assistance None Patient Identification Verified (Name & Yes Yes ) Patient Requires Transmission-Based No Precautions Vital Signs Temperature (97.8 F-99.1 F) 97.8 F 97.4 F L Temperature Source Temporal Temporal Pulse Rate (60-100) 73 86 Pulse Location Monitor Monitor Respiratory Rate (12-18) 16 18 Respiratory rate source Observation Observation Oxygen Delivery Method Room Air Blood Pressure (90/60-120/80) 148/59 H 157/75 H Blood Pressure Mean (mm Hg) 88 102 Source Monitor Position Sitting Blood Pressure Location Left Arm History Since Last Visit- (Skip if this is Patient's initial visit) Have you changed medications since your No No last visit? Any new allergies or adverse reactions No No Had a fall/change in ADL's that may No No increase risk of falls Signs or symptoms of abuse and/or No No neglect since last visit Have you been in the hospital since your No No last visit? Has dressing in place as prescribed Yes Yes Has compression in place as prescribed N/A Yes Has offloadiing in place as prescribed N/A N/A Experienced any changes in pain level or No No management Left Footwear Regular Shoe Right Footwear Regular Shoe Pain Scale: 0-10 Numeric Is Patient Pain Free? Yes Yes BRAN - Nurse 1 - General Ulcer Measurement Start: 06/28/24 15:08 Freq: Status: Active Protocol: Activity Type Activity Date Activity User E-sign Co-sign Detail Recorded Client Recorded Date Recorded By Document 06/28/24 15:08 ML [id number] 06/28/24 15:10 ML Document 07/05/24 15:40 [id number] [id number] 07/05/24 15:47 KW 06/28/24 07/05/24 15:08 15:40 Wound Center Nurse 1 #17 Left Lateral Power -Current Size (cm) - Length 3.5 3 -Current Size (cm) - Width 3 3 -Current Size (cm) - Depth 0.1 0.2 -Total Square Cm 10.5 9 -Exudate Amt Medium Small -Exudate Type Serosanguineous Serosanguineous -Wound Margin Distinct, Distinct, Outline Outline Attached Attached -Granulation Amt Medium (34-66%) -Slough/Fibrin Yes -Necrosis Amt Medium (34-66%) -Necrotic Tissue Type Adherent Slough -Texture (Vangie-wound Skin Appearance) Assessed Assessed -Moisture (Vangie-wound Skin Appearance) Assessed Assessed -Color (Vangie-wound Skin Appearance) Assessed Assessed -Temperature (Vangie-wound Skin No Abnormality Appearance) (Pt Warm) -Tenderness on Palpation (Vangie-wound No Skin Appearance) -Ulcer Cleansing Rinsed/ Rinsed/ Irrigated with Irrigated with Saline Saline -Foul Odor after Cleansing No No -Anesthetic Used 5% Lidocaine 5% Lidocaine Gel Gel Left Calf (cm) 34 Left Ankle (cm) 22.4 WC - Nurse 2 - General Ulcer CM Notes Start: 06/28/24 15:08 Freq: Status: Active Protocol: Activity Type Activity Date Activity User E-sign Co-sign Detail Recorded Client Recorded Date Recorded By Document 06/28/24 15:34 [id number] 06/28/24 15:43 Document 07/05/24 15:54 [id number] 07/05/24 16:05 06/28/24 07/05/24 15:34 15:54 Wound Center Nurse 2 #17 Left Lateral Power -Time 15:34 16:03 -Correct Patient Yes Yes -Correct Side, Site, Position Yes Yes -Correct Procedure Yes Yes -Procedure Performed Yes Yes -Type of Procedure Debridement Debridement -Clinical Debridement Subcutaneous Subcutaneous -Tissue Removed Subcutaneous Subcutaneous -Post Debridement (cm) - Length 3.8 3.8 -Post Debridement (cm) - Width 3.0 3.0 -Post Debridement (cm) - Depth 0.2 0.3 -Total Square (Post) (cm) 11.40 11.40 -Area of Debridement (cm) - Length 3.8 3.8 -Area of Debridement (cm) - Width 3.0 3.0 -Total Square (Area) (cm) 11.40 11.40 -Tunneling No No -Undermining/Tunneling No No -Circular Undermining No No -Wound/Ulcer Outcome Not Healed Not Healed -Ulcer Cleansing Rinsed/ Rinsed/ Irrigated with Irrigated with Saline Saline -Foul Odor after Cleansing No No -Bioengineered Tissue No No -Bleeding Controlled with Pressure Pressure -Treatment Response Procedure Procedure Tolerated Well Tolerated Well -Debridement - Subq, 1st 20sq cm Yes Yes Pain Scale: 0-10 Numeric Is Patient Pain Free? Yes Yes - Nurse 3 - General Ulcer D/C NN Start: 06/28/24 15:08 Freq: Status: Active Protocol: Activity Type Activity Date Activity User E-sign Co-sign Detail Recorded Client Recorded Date Recorded By Document 06/28/24 16:03 DL [id number] 06/28/24 16:05 DL Document 07/05/24 16:09 [id number] 07/05/24 16:09 06/28/24 07/05/24 16:03 16:09 Wound Care Center Nurse 3 #17 Left Lateral Power -Ulcer Cleansing Rinsed/ Not Cleansed Irrigated with Saline -Foul Odor after Cleansing No No -Primary Dressing Applied C Hydrogel ($) Mepilex Border -Primary Dressing Covered/Secured with Dry Gauze & Roll Gauze, Secured with Tape -Mepilex Border 2 -Wound Comment(s) Apply Santyl when available. Left -Stockings Yes Treatment Response Procedure Tolerated Well Pain Scale: 0-10 Numeric Is Patient Pain Free? 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 She now lives in assisted living at [facility] Wound care? Continue Santyl nickel thickness covered with moistened gauze topped with Mepilex dressing daily. This will hopefully help prevent her from being so dry. She is to wash her wound with soap and water at the time of the dressing change. To new wound/bruise on right anterior leg place Mepilex dressing and check every 3 days on how it is healing. She has been wearing compression stockings. Her left leg has some erythema and warmth, suspect she is getting a cellulitis, will start her on Keflex 500 mg TID x 7 day. She will follow-up in 2 weeks.
[2024-07-17 09:30] VITALS: BP 145/52; PULSE 75; RESP 18; TEMP 35.9
--- NOTE | 2024-07-17 12:30 | PN.PCM_ITS ---
History of Present Illness Date of Service: 07/17/24 Chief Complaint: Left anterior leg ulcer History of Wound: 88 year old female who is known to me. She has previously been seen at the wound center for several ulcers on her lower legs. She presented to me a week ago for a skin check in the office, at that time she showed me her left anterior leg wound that she obtained several weeks ago from bumping it against a piece of furniture. She been covering it with dry gauze. After I saw her last week she started using moistened Chuyita and I referred her to the wound healing center. She has a history of excision of multiple Squamous cell carcinomas, Actinic keratosis, Afib, chronic anticoagulation, CHF, chronic venous insufficiency, rheumatoid arthritis which she used to be on methotrexate. Today she states she feels well and denies fever, chills, nausea and vomiting. 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 It is firm. Recommend her compressing it. Left anterior leg ulcer continues to be dry and painful with thick scabbing. Her right anterior ulcer is stable with some dry scabbing. She has a new scratch/bruise from her fall on her right lateral lower leg that is superficial and tender to palpation. The erythema on her left lower leg has resolved with the use of her antibiotics she was placed on last week. Objective Data Objective Data Vital Signs: Vital Signs Temp Pulse Resp BP O2 Del Method 96.7 F L 75 18 145/52 H Room Air 07/17/24 09:30 07/17/24 09:30 07/17/24 09:30 07/17/24 09:30 07/05/24 15:40 Oxygen Delivery Method Room Air Charges/Coding Procedures Integumentary 111xxx-113xx: 17090 Lian subq tissue 20 sq cm/< Debridement Note Debridement Note Wound debrided: #17 Left anterior leg ulcer Laterality: Left Wound Grade/Stage: Stage III Type of Debridement: Excisional debridement Anesthesia Used: 5% Lidocaine Gel and Cetacaine Depth: Down to and including healthy tissue and in the subcutaneous layer Percentage of wound debrided: 100 Instrument Used: 5mm curette Tissue Removed: Nonviable tissue and slough Severity: Fat Layer Exposed Amount of bleeding with debridement: Mild Bleeding Controlled with: Pressure and Compression and gauze Patient tolerated procedure: Patient did not tolerate procedure well Debridement Free Text: Unable to completely debide wound due to her not tolerating it, placed hash childers in dry tissue to help Santyl get under non viable tissue Post-Debridement Measurements and Additional Note: Post-Debridement Measurements/Treatment - Nurse 1 - General Ulcer Assessment Start: 06/28/24 15:08 Freq: Status: Active Protocol: ALEX Activity Type Activity Date Activity User E-sign Co-sign Detail Recorded Client Recorded Date Recorded By Document 06/28/24 15:08 ML [id number] 06/28/24 15:10 ML Document 07/05/24 15:40 KW [id number] 07/05/24 15:47 KW Document 07/17/24 09:30 DL [id number] 07/17/24 09:42 DL 06/28/24 07/05/24 07/17/24 15:08 15:40 09:30 - Today's Visit Information Type of service Follow-up Visit Follow-up Visit Follow-up Visit (Physician/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 (Physician/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 (Physician/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 ) ) ) Arrival Mode Walker Ambulatory, Ambulatory, Walker Walker Transfer Assistance None Transfer Assist (Other) x1 Patient Identification Verified (Name & Yes Yes Yes ) Patient Requires Transmission-Based No No Precautions Vital Signs Temperature (97.8 F-99.1 F) 97.8 F 97.4 F L 96.7 F L Temperature Source Temporal Temporal Temporal Pulse Rate (60-100) 73 86 75 Pulse Location Monitor Monitor Monitor Respiratory Rate (12-18) 16 18 18 Respiratory rate source Observation Observation Observation Oxygen Delivery Method Room Air Blood Pressure (90/60-120/80) 148/59 H 157/75 H 145/52 H Blood Pressure Mean (mm Hg) 88 102 83 Source Monitor Monitor Position Sitting Blood Pressure Location Left Arm History Since Last Visit- (Skip if this is Patient's initial visit) Have you changed medications since your No No No last visit? Any new allergies or adverse reactions No No No Had a fall/change in ADL's that may No No No increase risk of falls Signs or symptoms of abuse and/or No No No neglect since last visit Have you been in the hospital since your No No No last visit? Has dressing in place as prescribed Yes Yes Yes Has compression in place as prescribed N/A Yes Yes Has offloadiing in place as prescribed N/A N/A N/A Experienced any changes in pain level or No No No management Left Footwear Regular Shoe Regular Shoe Right Footwear Regular Shoe Regular Shoe Pain Scale: 0-10 Numeric Is Patient Pain Free? Yes Yes No WC - Nurse 1 - General Ulcer Measurement Start: 06/28/24 15:08 Freq: Status: Active Protocol: Activity Type Activity Date Activity User E-sign Co-sign Detail Recorded Client Recorded Date Recorded By Document 06/28/24 15:08 ML [id number] 06/28/24 15:10 ML Document 07/05/24 15:40 KW [id number] 07/05/24 15:47 KW Document 07/17/24 09:30 DL [id number] 07/17/24 09:42 DL 06/28/24 07/05/24 07/17/24 15:08 15:40 09:30 Wound Center Nurse 1 #19 RLE LAt -Current Size (cm) - Length 4.5 -Current Size (cm) - Width 2.9 -Current Size (cm) - Depth 0.1 -Total Square Cm 13.05 -Photo Taken Yes -Exudate Amt Medium -Exudate Type Serosanguineous -Wound Margin Distinct, Outline Attached -Granulation Amt None Present (0 %) -Slough/Fibrin Yes -Necrosis Amt Large (67-100%) -Necrotic Tissue Type Adherent Slough -Structure Exposed N/A -Texture (Vangie-wound Skin Appearance) Localized Edema ,Scarring -Moisture (Vangie-wound Skin Appearance) Dry/Scaly -Color (Vangie-wound Skin Appearance) Ecchymosis, Hemosiderin Staining -Temperature (Vangie-wound Skin No Abnormality Appearance) (Pt Warm) -Tenderness on Palpation (Vangie-wound No Skin Appearance) -Ulcer Cleansing Soap and Water -Foul Odor after Cleansing No -Anesthetic Used 5% Lidocaine Gel #18 R Power -Current Size (cm) - Length 1.9 -Current Size (cm) - Width 2.2 -Current Size (cm) - Depth 0.1 -Total Square Cm 4.18 -Photo Taken Yes -Exudate Amt Medium -Exudate Type Serosanguineous -Wound Margin Distinct, Outline Attached -Granulation Amt None Present (0 %) -Slough/Fibrin Yes -Necrosis Amt Large (67-100%) -Necrotic Tissue Type Adherent Slough -Structure Exposed Fat Layer Exposed -Texture (Vangie-wound Skin Appearance) Localized Edema ,Scarring -Moisture (Vangie-wound Skin Appearance) Dry/Scaly -Color (Vangie-wound Skin Appearance) Hemosiderin Staining -Temperature (Vangie-wound Skin No Abnormality Appearance) (Pt Warm) -Ulcer Cleansing Soap and Water -Foul Odor after Cleansing No -Anesthetic Used 5% Lidocaine Gel #17 Left Lateral Power -Current Size (cm) - Length 3.5 3 3.8 -Current Size (cm) - Width 3 3 3 -Current Size (cm) - Depth 0.1 0.2 0.2 -Total Square Cm 10.5 9 11.4 -Photo Taken Yes -Exudate Amt Medium Small Medium -Exudate Type Serosanguineous Serosanguineous Serosanguineous -Wound Margin Distinct, Distinct, Distinct, Outline Outline Outline Attached Attached Attached -Granulation Amt Medium (34-66%) -Granulation Quality Hyper- granulation -Slough/Fibrin Yes -Necrosis Amt Medium (34-66%) Large (67-100%) -Necrotic Tissue Type Adherent Slough Adherent Slough -Structure Exposed N/A -Texture (Vangie-wound Skin Appearance) Assessed Assessed Localized Edema ,Scarring -Moisture (Vangie-wound Skin Appearance) Assessed Assessed Dry/Scaly -Color (Vangie-wound Skin Appearance) Assessed Assessed Hemosiderin Staining -Temperature (Vangie-wound Skin No Abnormality No Abnormality Appearance) (Pt Warm) (Pt Warm) -Tenderness on Palpation (Vangie-wound No No Skin Appearance) -Ulcer Cleansing Rinsed/ Rinsed/ Soap and Water Irrigated with Irrigated with Saline Saline -Foul Odor after Cleansing No No No -Anesthetic Used 5% Lidocaine 5% Lidocaine 5% Lidocaine Gel Gel Gel Right Calf (cm) 34.1 Right Ankle (cm) 21.9 Left Calf (cm) 34 35.5 Left Ankle (cm) 22.4 24 WC - Nurse 2 - General Ulcer CM Notes Start: 06/28/24 15:08 Freq: Status: Active Protocol: Activity Type Activity Date Activity User E-sign Co-sign Detail Recorded Client Recorded Date Recorded By Document 06/28/24 15:34 GM [id number] 06/28/24 15:43 Document 07/05/24 15:54 [id number] 07/05/24 16:05 Document 07/17/24 10:02 [id number] 07/17/24 10:12 06/28/24 07/05/24 07/17/24 15:34 15:54 10:02 Wound Center Nurse 2 #19 RLE LAt -Time 10:10 -Correct Patient Yes -Correct Side, Site, Position Yes -Correct Procedure Yes -Procedure Performed Yes -Type of Procedure Debridement -Clinical Debridement Epidermis / Dermis -Tissue Removed Epidermis, Dermis -Post Debridement (cm) - Length 2.4 -Post Debridement (cm) - Width 3.5 -Post Debridement (cm) - Depth 0.1 -Total Square (Post) (cm) 8.40 -Area of Debridement (cm) - Length 2.4 -Area of Debridement (cm) - Width 3.5 -Total Square (Area) (cm) 8.40 -Tunneling No -Undermining/Tunneling No -Circular Undermining No -Wound/Ulcer Outcome Not Healed -Ulcer Cleansing Rinsed/ Irrigated with Saline -Foul Odor after Cleansing No -Bioengineered Tissue No -Bleeding Controlled with Pressure -Treatment Response Procedure Tolerated Well -Offloading No -Debridement - Open, 1st 20sq cm Yes #18 R Power -Time 10:08 -Correct Patient Yes -Correct Side, Site, Position Yes -Correct Procedure Yes -Procedure Performed Yes -Type of Procedure Debridement -Clinical Debridement Subcutaneous -Tissue Removed Subcutaneous -Post Debridement (cm) - Length 1.7 -Post Debridement (cm) - Width 2.0 -Post Debridement (cm) - Depth 0.1 -Total Square (Post) (cm) 3.40 -Area of Debridement (cm) - Length 1.7 -Area of Debridement (cm) - Width 2.0 -Total Square (Area) (cm) 3.40 -Tunneling No -Undermining/Tunneling No -Circular Undermining No -Wound/Ulcer Outcome Not Healed -Ulcer Cleansing Rinsed/ Irrigated with Saline -Foul Odor after Cleansing No -Bioengineered Tissue No -Bleeding Controlled with Pressure -Treatment Response Procedure Tolerated Well -Offloading No -Debridement - Subq, 1st 20sq cm No #17 Left Lateral Power -Time 15:34 16:03 10:05 -Correct Patient Yes Yes Yes -Correct Side, Site, Position Yes Yes Yes -Correct Procedure Yes Yes Yes -Procedure Performed Yes Yes Yes -Type of Procedure Debridement Debridement Debridement -Clinical Debridement Subcutaneous Subcutaneous Subcutaneous -Tissue Removed Subcutaneous Subcutaneous Subcutaneous -Post Debridement (cm) - Length 3.8 3.8 3.9 -Post Debridement (cm) - Width 3.0 3.0 3.5 -Post Debridement (cm) - Depth 0.2 0.3 0.2 -Total Square (Post) (cm) 11.40 11.40 13.65 -Area of Debridement (cm) - Length 3.8 3.8 3.9 -Area of Debridement (cm) - Width 3.0 3.0 3.5 -Total Square (Area) (cm) 11.40 11.40 13.65 -Tunneling No No No -Undermining/Tunneling No No No -Circular Undermining No No No -Wound/Ulcer Outcome Not Healed Not Healed Not Healed -Ulcer Cleansing Rinsed/ Rinsed/ Rinsed/ Irrigated with Irrigated with Irrigated with Saline Saline Saline -Foul Odor after Cleansing No No Yes, Due to Product Use -Bioengineered Tissue No No No -Bleeding Controlled with Pressure Pressure Pressure -Treatment Response Procedure Procedure Procedure Tolerated Well Tolerated Well Tolerated Well -Offloading No -Debridement - Subq, 1st 20sq cm Yes Yes Yes Pain Scale: 0-10 Numeric Is Patient Pain Free? Yes Yes Yes WC - Nurse 3 - General Ulcer D/C NN Start: 06/28/24 15:08 Freq: Status: Active Protocol: Activity Type Activity Date Activity User E-sign Co-sign Detail Recorded Client Recorded Date Recorded By Document 06/28/24 16:03 DL [id number] 06/28/24 16:05 DL Document 07/05/24 16:09 [id number] 07/05/24 16:09 Document 07/17/24 10:29 [facility] [id number] 07/17/24 10:31 [facility] 06/28/24 07/05/24 07/17/24 16:03 16:09 10:29 Wound Care Center Nurse 3 #19 RLE LAt -Ulcer Cleansing Rinsed/ Irrigated with Saline -Foul Odor after Cleansing No -Primary Dressing Applied NonAdherent Contact Layer -Other Dressing per dl marine engineering consultant -Primary Dressing Covered/Secured with Dry Gauze -Mepilex Border 1 #18 R Power -Ulcer Cleansing Rinsed/ Irrigated with Saline -Foul Odor after Cleansing No -Primary Dressing Applied Mepilex Border -Other Dressing hydrogel in clinic per dl marine engineering consultant -Mepilex Border 1 #17 Left Lateral Power -Ulcer Cleansing Rinsed/ Not Cleansed Rinsed/ Irrigated with Irrigated with Saline Saline -Foul Odor after Cleansing No No No -Primary Dressing Applied C Hydrogel ($) Mepilex Border Mepilex Border -Other Dressing hydrogel in clinic per dl marine engineering consultant -Primary Dressing Covered/Secured with Dry Gauze & Roll Gauze, Secured with Tape -Mepilex Border 2 1 -Wound Comment(s) Apply Santyl when available. ble -Other own compression reapplied Left -Stockings Yes Treatment Response Procedure Procedure Tolerated Well Tolerated Well Pain Scale: 0-10 Numeric Is Patient Pain Free? Yes Yes Yes WC - Visit Discharge Discharge Condition Stable Stable Stable Ambulatory Status Ambulatory, Ambulatory, Ambulatory, Walker Walker Walker Transportation Private Auto Private Auto Private Auto Accompanied by friend Medication Reconcilliation completed & Yes provided to patient/care provider Facility Type Longterm Care Longterm Care Facility Facility Orders Sent Yes Additional Wound Wound debrided: #18 right anterior leg Laterality: Right Wound Grade/Stage: Stage 3 Type of Debridement: Excisional debridement Anesthesia Used: 5% Lidocaine Gel Depth: Down to and including healthy tissue and in the subcutaneous layer Percentage of wound debrided: 100 Instrument Used: 5mm curette Tissue Removed: Non viable tissue and slough Severity: Fat Layer Exposed Amount of bleeding with debridement: Mild Bleeding Controlled with: Pressure and Compression and gauze Patient tolerated procedure: Patient tolerated procedure well Assessment/Plan Assessment/Plan (1) Ulcer of left lower extremity with fat layer exposed: CODE(S): L97.922 - Non-pressure chronic ulcer of unspecified part of left lower leg with fat layer exposed (2) senior living (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: 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 (3) Chronic venous insufficiency: (4) Leg edema, left: CODE(S): R60.0 - Localized edema (5) Personal history of skin cancer: CODE(S): Z85.828 - Personal history of other malignant neoplasm of skin (6) Former smoker: CODE(S): Z87.891 - Personal history of nicotine dependence (7) Wound of right lower extremity: CODE(S): S81.801A - Unspecified open wound, right lower leg, initial encounter QUALIFIERS: Encounter type: initial encounter Qualified Code(s): S81.801A - Unspecified open wound, right lower leg, initial encounter (8) Traumatic ecchymosis of right lower leg: CODE(S): S80.11XA - Contusion of right lower leg, initial encounter QUALIFIERS: Encounter type: initial encounter Qualified Code(s): S80.11XA - Contusion of right lower leg, initial encounter (9) Traumatic ecchymosis of left hip: CODE(S): S70.02XA - Contusion of left hip, initial encounter QUALIFIERS: Encounter type: initial encounter Qualified Code(s): S70.02XA - Contusion of left hip, initial encounter PLAN: Plan Patient evaluated at the wound healing center today. She now lives in assisted living at [facility] in [place] Wound care? To left and right anterior ulcer/wounds apply Santyl nickel thickness covered with moistened gauze topped with Mepilex dressing daily. Right lower leg bruise/scratch place adaptic and cover with silicone bordered dressing. She is to wash her wounds with soap and water at the time of the dressing change. She has been wearing compression stockings to bilateral lower legs. Recommend wearing compression shorts/spanx/shape wear to help with the bruising firmness over her left hip and thigh. She would benefit from compression to this area. Her left leg erythema and warmth have subsided with the use of Keflex, which she completed. Discussed signs and symptoms of fever, chills, nausea, vomiting to seek further care with all the bruising she has on her left hip and thigh. She will follow-up in 2 weeks.
== END 2024-07-25 23:59 | disposition home or self-care (01) ==
LOC: WC 09:30
PROVIDERS: PCP Family Medicine; Referring Provider Nurse Practitioner Family; Visit Provider Nurse Practitioner Family
DX: L97.922 Non-pressure chronic ulcer of unspecified part of left lower leg with fat layer exposed (principal); R60.0 Localized edema; I87.2 Venous insufficiency (chronic) (peripheral); Z79.01 Long term (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; Z87.891 Personal history of nicotine dependence; Z85.828 Personal history of other malignant neoplasm of skin; S81.801A Unspecified open wound, right lower leg, initial encounter; S70.02XA Contusion of left hip, initial encounter; S80.11XA Contusion of right lower leg, initial encounter; W01.198A Fall on same level from slipping, tripping and stumbling with subsequent striking against other object, initial encounter
CPT/HCPCS: 11042; 97597

== ENCOUNTER 2024-08-23 14:00 | Outpatient (RCR) | payer MEDICARE, OTHER, SELFPAY ==
[2024-07-26 00:26] VITALS: BP 114/63; PULSE 83; RESP 18; TEMP 36.6
[2024-08-02 14:06] VITALS: BP 149/73; PULSE 76; RESP 16; TEMP 36.4
--- NOTE | 2024-08-02 16:52 | PCM.WC.PN ---
History of Present Illness Date of Service: 08/02/24 Chief Complaint: Left anterior leg ulcer History of Wound: 88 year old female who is known to me. She has previously been seen at the wound center for several ulcers on her lower legs. She presented to me a week ago for a skin check in the office, at that time she showed me her left anterior leg wound that she obtained several weeks ago from bumping it against a piece of furniture. She been covering it with dry gauze. After I saw her last week she started using moistened Chuyita and I referred her to the wound healing center. She has a history of excision of multiple Squamous cell carcinomas, Actinic keratosis, Afib, chronic anticoagulation, CHF, chronic venous insufficiency, rheumatoid arthritis which she used to be on methotrexate. Today she states she feels well and denies fever, chills, nausea and vomiting. Progress of Wound: Today her bilateral lower extremities have +4 pitting edema. She also has fallen again at the assisted living where she lives and scraped her bilateral knees and and has a new wound cluster on her right lateral distal lower leg and one on her right samayoa. The wound she obtained before her last visit, after a fall, on her right lateral leg is very painful and the slough has decreased with the use of the Santyl collagenase. Her left mid anterior leg ulcer also has less non viable tissue present since her last appointment. The biggest concern is that she has not been wearing her compression stockings (they have not been put on her) for 4 days and she has severe edema present bilaterally, into her thighs. She denies any new issues with breathing or shortness of breath. Her lungs have wheezes in her right lung but no rales auscultated. Objective Data Objective Data Vital Signs: Vital Signs Temp Pulse Resp BP O2 Del Method 97.6 F L 76 16 149/73 H Room Air 08/02/24 14:06 08/02/24 14:06 08/02/24 14:06 08/02/24 14:08/02/24 14:06 Oxygen Delivery Method Room Air Charges/Coding Procedures Integumentary 111xxx-113xx: 76420 Lian subq tissue 20 sq cm/< Add On Codes: 72218 Lian subq tissue add-on (x2) Debridement Note Debridement Note Wound debrided: Right knee (#22), Right anterior leg wound (#18), Right lateral leg (#19) Laterality: Right Type of Debridement: Excisional debridement Anesthesia Used: 5% Lidocaine Gel and Cetacaine (right lateral leg wound only) Depth: Down to and including healthy tissue and in the subcutaneous layer Percentage of wound debrided: 100 Instrument Used: 5mm curette Tissue Removed: Non viable tissue and slough Severity: Fat Layer Exposed Amount of bleeding with debridement: Mild Bleeding Controlled with: Pressure and Compression and gauze Patient tolerated procedure: Patient tolerated procedure well Debridement Free Text: Right lateral leg wound was very painful for her to have it debrided. 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 Any new allergies or adverse reactions No Had a fall/change in ADL's that may No increase risk of falls Signs or symptoms of abuse and/or No neglect since last visit Have you been in the hospital since your No last visit? Has dressing in place as prescribed Yes Has compression in place as prescribed Yes Has offloadiing in place as prescribed N/A Experienced any changes in pain level or No management Left Footwear Regular Shoe Right Footwear Regular Shoe Pain Scale: 0-10 Numeric Is Patient Pain Free? Yes - Nurse 1 - General Ulcer Measurement Start: 08/02/24 14:06 Freq: Status: Active Protocol: Activity Type Activity Date Activity User E-sign Co-sign Detail Recorded Client Recorded Date Recorded By Document 08/02/24 14:06 KW [id number] 08/02/24 14:29 KW 08/02/24 14:06 Wound Center Nurse 1 22 rt knee -Current Size (cm) - Length 4 -Current Size (cm) - Width 2 -Current Size (cm) - Depth 0.1 -Total Square Cm 8 -Date of Last Picture (Recall this 08/02/24 field) -Exudate Amt Medium -Exudate Type Serosanguineous -Wound Margin Distinct, Outline Attached -Granulation Amt Large (67-100%) -Granulation Quality Red -Necrosis Amt Small (1-33%) -Necrotic Tissue Type Eschar -Texture (Vangie-wound Skin Appearance) Assessed -Moisture (Vangie-wound Skin Appearance) Assessed -Color (Vangie-wound Skin Appearance) Assessed -Temperature (Vangie-wound Skin No Abnormality Appearance) (Pt Warm) -Tenderness on Palpation (Vangie-wound No Skin Appearance) -Ulcer Cleansing Not Cleansed -Foul Odor after Cleansing No -Anesthetic Used 4% Lidocaine Solution 21 lt lat le -Current Size (cm) - Length 1.1 -Current Size (cm) - Width 2 -Current Size (cm) - Depth 0.3 -Total Square Cm 2.2 -Exudate Amt Small -Exudate Type Serosanguineous -Wound Margin Distinct, Outline Attached -Granulation Amt Medium (34-66%) -Granulation Quality Red -Necrosis Amt Medium (34-66%) -Necrotic Tissue Type Adherent Slough -Texture (Vangie-wound Skin Appearance) Assessed -Moisture (Vangie-wound Skin Appearance) Assessed -Color (Vangie-wound Skin Appearance) Assessed -Temperature (Vangie-wound Skin No Abnormality Appearance) (Pt Warm) -Tenderness on Palpation (Vangie-wound No Skin Appearance) -Ulcer Cleansing Soap and Water -Foul Odor after Cleansing No -Anesthetic Used 4% Lidocaine Solution #20 lt knee -Current Size (cm) - Length 2 -Current Size (cm) - Width 1 -Current Size (cm) - Depth 0.1 -Total Square Cm 2 -Date of Last Picture (Recall this 08/02/24 field) -Exudate Amt Medium -Exudate Type Serosanguineous -Wound Margin Distinct, Outline Attached -Granulation Amt Large (67-100%) -Granulation Quality Red -Necrosis Amt Small (1-33%) -Necrotic Tissue Type Adherent Slough -Texture (Vangie-wound Skin Appearance) Assessed -Moisture (Vangie-wound Skin Appearance) Assessed -Color (Vangie-wound Skin Appearance) Assessed -Temperature (Vangie-wound Skin No Abnormality Appearance) (Pt Warm) -Tenderness on Palpation (Vangie-wound No Skin Appearance) -Ulcer Cleansing Soap and Water -Foul Odor after Cleansing No -Anesthetic Used 4% Lidocaine Solution #19 RLE LAt -Current Size (cm) - Length 4 -Current Size (cm) - Width 5 -Current Size (cm) - Depth 0.2 -Total Square Cm 20 -Date of Last Picture (Recall this 08/02/24 field) -Exudate Amt Medium -Exudate Type Serosanguineous -Wound Margin Distinct, Outline Attached -Granulation Amt Small (1-33%) -Granulation Quality Red -Necrosis Amt Large (67-100%) -Necrotic Tissue Type Adherent Slough -Texture (Vangie-wound Skin Appearance) Assessed -Moisture (Vangie-wound Skin Appearance) Assessed -Color (Vangie-wound Skin Appearance) Assessed -Temperature (Vangie-wound Skin No Abnormality Appearance) (Pt Warm) -Tenderness on Palpation (Vnagie-wound No Skin Appearance) -Ulcer Cleansing Soap and Water -Foul Odor after Cleansing No #18 R [place] -Current Size (cm) - Length 2 -Current Size (cm) - Width 3 -Current Size (cm) - Depth 0.1 -Total Square Cm 6 -Date of Last Picture (Recall this 08/02/24 field) -Texture (Vangie-wound Skin Appearance) Assessed -Moisture (Vangie-wound Skin Appearance) Assessed -Color (Vangie-wound Skin Appearance) Assessed -Temperature (Vangie-wound Skin No Abnormality Appearance) (Pt Warm) -Tenderness on Palpation (Vangie-wound No Skin Appearance) -Ulcer Cleansing Soap and Water -Foul Odor after Cleansing No -Anesthetic Used 4% Lidocaine Solution #17 Left Lateral [place] -Current Size (cm) - Length 4 -Current Size (cm) - Width 4 -Current Size (cm) - Depth 0.8 -Total Square Cm 16 -Date of Last Picture (Recall this 08/02/24 field) -Exudate Amt Medium -Exudate Type Serosanguineous -Wound Margin Distinct, Outline Attached -Granulation Amt Small (1-33%) -Granulation Quality Red -Necrosis Amt Large (67-100%) -Necrotic Tissue Type Adherent Slough -Texture (Vangie-wound Skin Appearance) Assessed -Moisture (Vangie-wound Skin Appearance) Assessed -Color (Vangie-wound Skin Appearance) Assessed -Temperature (Vangie-wound Skin No Abnormality Appearance) (Pt Warm) -Tenderness on Palpation (Vangie-wound No Skin Appearance) -Ulcer Cleansing Soap and Water -Foul Odor after Cleansing No -Anesthetic Used 4% Lidocaine Solution Right Calf (cm) 43.5 Right Ankle (cm) 21.2 Left Calf (cm) 42 Left Ankle (cm) 24 WC - Nurse 2 - General Ulcer CM Notes Start: 08/02/24 14:06 Freq: Status: Active Protocol: Activity Type Activity Date Activity User E-sign Co-sign Detail Recorded Client Recorded Date Recorded By Document 08/02/24 14:36 [id number] 08/02/24 14:54 08/02/24 14:36 Wound Center Nurse 2 22 rt knee -Time 14:42 -Correct Patient Yes -Correct Side, Site, Position Yes -Correct Procedure Yes -Procedure Performed Yes -Type of Procedure Debridement -Clinical Debridement Subcutaneous -Tissue Removed Subcutaneous -Post Debridement (cm) - Length 4.0 -Post Debridement (cm) - Width 1.7 -Post Debridement (cm) - Depth 0.1 -Total Square (Post) (cm) 6.80 -Area of Debridement (cm) - Length 4.0 -Area of Debridement (cm) - Width 1.7 -Total Square (Area) (cm) 6.80 -Tunneling No -Undermining/Tunneling No -Circular Undermining No -Wound/Ulcer Outcome Not Healed -Ulcer Cleansing Rinsed/ Irrigated with Saline -Foul Odor after Cleansing No -Bioengineered Tissue No -Bleeding Controlled with Pressure -Treatment Response Procedure Tolerated Well -Debridement - Subq, 1st 20sq cm No 21 lt lat le -Time 14:47 -Correct Patient Yes -Correct Side, Site, Position Yes -Correct Procedure Yes -Procedure Performed Yes -Type of Procedure Debridement -Clinical Debridement Subcutaneous -Tissue Removed Subcutaneous -Post Debridement (cm) - Length 2.0 -Post Debridement (cm) - Width 2.0 -Post Debridement (cm) - Depth 0.1 -Total Square (Post) (cm) 4.00 -Area of Debridement (cm) - Length 2.0 -Area of Debridement (cm) - Width 2.0 -Total Square (Area) (cm) 4.00 -Tunneling No -Undermining/Tunneling No -Circular Undermining No -Wound/Ulcer Outcome Not Healed -Ulcer Cleansing Rinsed/ Irrigated with Saline -Foul Odor after Cleansing No -Bioengineered Tissue No -Bleeding Controlled with Pressure -Treatment Response Procedure Tolerated Well -Debridement - Subq, 20sq cm No #20 lt knee -Time 14:48 -Correct Patient Yes -Correct Side, Site, Position Yes -Correct Procedure Yes -Procedure Performed Yes -Type of Procedure Debridement -Clinical Debridement Subcutaneous -Tissue Removed Subcutaneous -Post Debridement (cm) - Length 1.5 -Post Debridement (cm) - Width 2.0 -Post Debridement (cm) - Depth 0.1 -Total Square (Post) (cm) 3.00 -Area of Debridement (cm) - Length 1.5 -Area of Debridement (cm) - Width 2.0 -Total Square (Area) (cm) 3.00 -Tunneling No -Undermining/Tunneling No -Circular Undermining No -Wound/Ulcer Outcome Not Healed -Ulcer Cleansing Rinsed/ Irrigated with Saline -Foul Odor after Cleansing No -Bioengineered Tissue No -Bleeding Controlled with Pressure -Treatment Response Procedure Tolerated Well -Debridement - Subq, 20sq cm No #19 RLE LAt -Time 14:44 -Correct Patient Yes -Correct Side, Site, Position Yes -Correct Procedure Yes -Procedure Performed Yes -Type of Procedure Debridement -Clinical Debridement Subcutaneous -Tissue Removed Subcutaneous -Post Debridement (cm) - Length 3.8 -Post Debridement (cm) - Width 5.0 -Post Debridement (cm) - Depth 0.2 -Total Square (Post) (cm) 19.00 -Area of Debridement (cm) - Length 3.8 -Area of Debridement (cm) - Width 5.0 -Total Square (Area) (cm) 19.00 -Tunneling No -Undermining/Tunneling No -Circular Undermining No -Wound/Ulcer Outcome Not Healed -Ulcer Cleansing Rinsed/ Irrigated with Saline -Foul Odor after Cleansing No -Bioengineered Tissue No -Bleeding Controlled with Pressure -Treatment Response Procedure Tolerated Well -Debridement - Subq, 1st 20sq cm No #18 R [place] -Time 14:41 -Correct Patient Yes -Correct Side, Site, Position Yes -Correct Procedure Yes -Procedure Performed Yes -Type of Procedure Debridement -Clinical Debridement Subcutaneous -Tissue Removed Subcutaneous -Post Debridement (cm) - Length 1.9 -Post Debridement (cm) - Width 2.8 -Post Debridement (cm) - Depth 0.2 -Total Square (Post) (cm) 5.32 -Area of Debridement (cm) - Length 1.9 -Area of Debridement (cm) - Width 2.8 -Total Square (Area) (cm) 5.32 -Tunneling No -Undermining/Tunneling No -Circular Undermining No -Wound/Ulcer Outcome Not Healed -Ulcer Cleansing Rinsed/ Irrigated with Saline -Foul Odor after Cleansing No -Bioengineered Tissue No -Bleeding Controlled with Pressure -Treatment Response Procedure Tolerated Well -Debridement - Subq, 1st 20sq cm No #17 Left Lateral [place] -Time 14:49 -Correct Patient Yes -Correct Side, Site, Position Yes -Correct Procedure Yes -Procedure Performed Yes -Type of Procedure Debridement -Clinical Debridement Subcutaneous -Tissue Removed Subcutaneous -Post Debridement (cm) - Length 4.0 -Post Debridement (cm) - Width 4.0 -Post Debridement (cm) - Depth 0.4 -Total Square (Post) (cm) 16.00 -Area of Debridement (cm) - Length 4.0 -Area of Debridement (cm) - Width 4.0 -Total Square (Area) (cm) 16.00 -Tunneling No -Undermining/Tunneling No -Circular Undermining No -Wound/Ulcer Outcome Not Healed -Ulcer Cleansing Rinsed/ Irrigated with Saline -Foul Odor after Cleansing No -Bioengineered Tissue No -Bleeding Controlled with Pressure -Treatment Response Procedure Tolerated Well -Debridement - Subq, 1st 20sq cm Yes -Debridement, SubQ, ea addt'l 20sq cm 2 or part thereof Pain Scale: 0-10 Numeric Is Patient Pain Free? Yes WC - Nurse 3 - General Ulcer D/C NN Start: 08/02/24 14:06 Freq: Status: Active Protocol: Activity Type Activity Date Activity User E-sign Co-sign Detail Recorded Client Recorded Date Recorded By Document 08/02/24 15:10 [id number] 01/08/25 15:13 KW 08/02/24 15:10 Wound Care Center Nurse 3 22 rt knee -Primary Dressing Applied Aquacel AG 4x4 -Primary Dressing Covered/Secured with Dry Gauze -Aquacel AG 4x4 1 21 lt lat le -Other Dressing aquacel ag -Primary Dressing Covered/Secured with Dry Gauze #20 lt knee -Other Dressing aquacel ag -Primary Dressing Covered/Secured with Dry Gauze & Roll Gauze, Secured with Tape #19 RLE LAt -Other Dressing aquacel ag -Primary Dressing Covered/Secured with Dry Gauze #18 R [place] -Other Dressing aqaucel ag -Primary Dressing Covered/Secured with Dry Gauze, Secured with Tape #17 Left Lateral [place] -Other Dressing aquacel ag -Primary Dressing Covered/Secured with Dry Gauze & Roll Gauze, Secured with Tape Right -Compression Wrap Francisco Javier Wrap -Tubular Bandage Single Layer -Size of Tubigrip Used Size E -Size E ($) 1 Left -Compression Wrap Francisco Javier Wrap -Tubular Bandage Single Layer -Size of Tubigrip Used Size E -Size E ($) 1 Pain Scale: 0-10 Numeric Is Patient Pain Free? Yes WC - Visit Discharge Discharge Condition Stable Ambulatory Status Ambulatory, Walker Medication Reconcilliation completed & No provided to patient/care provider Clinical Summary of Care Provided Yes Notes: pt ok to use own compression stockings once swelling decreases back down Additional Wound Wound debrided: Lateral midleg ulcer (#17), knee (#20), Lt distal lateral leg cluster(#21). Laterality: Left Type of Debridement: Excisional debridement Anesthesia Used: 5% Lidocaine Gel Depth: Down to and including healthy tissue and in the subcutaneous layer Percentage of wound debrided: 100 Instrument Used: 7mm curette Tissue Removed: Non viable tissue and slough Severity: Fat Layer Exposed Amount of bleeding with debridement: Mild Bleeding Controlled with: Compression and gauze Patient tolerated procedure: Patient tolerated procedure well Assessment/Plan Assessment/Plan (1) Ulcer of left lower extremity with fat layer exposed: CODE(S): L97.922 - Non-pressure chronic ulcer of unspecified part of left lower leg with fat layer exposed (2) Wound of left lower extremity: CODE(S): S81.802A - Unspecified open wound, left lower leg, initial encounter QUALIFIERS: Encounter type: initial encounter Qualified Code(s): S81.802A - Unspecified open wound, left lower leg, initial encounter (3) Wound of right lower extremity: CODE(S): S81.801A - Unspecified open wound, right lower leg, initial encounter QUALIFIERS: Encounter type: initial encounter Qualified Code(s): S81.801A - Unspecified open wound, right lower leg, initial encounter (4) Frequent falls: CODE(S): R29.6 - Repeated falls (5) Bilateral lower extremity edema: CODE(S): R60.0 - Localized edema (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 She has had another fall. She states that she went to sit on her bed and slipped right off onto her knees. She has new bilateral knee wounds and a new right lateral leg wound and left distal lateral leg wound cluster. Her left lateral leg ulcer has less nonviable tissue present and her right anterior leg wound has less non viable tissue present. Also, she has significant amount of bilateral lower extremity edema present. She states that they have not been placing her compression stocking on her legs. She now lives in assisted living at [facility] and has fallen twice in the last month. Wound care? To all the ulcers and wounds place Aquacel-Ag and cover with gauze/ABD and secure with silicone tape or cling gauze. Since her edema is so severe, will start to compress her with Single tubigrip and FRANCISCO JAVIER wrap. I want to compress her slowly so that she doesn't go into fluid volume overload. Stressed to Nelli the importance of her wearing compression. Stressed in senior care paperwork for them to call me if they have any questions about her wound care and compression. She will follow-up in 1 week.
--- NOTE | 2024-08-03 12:31 | WC ---
PHOTO 08/02/24 RIGHT LATERAL LE
--- NOTE | 2024-08-03 12:32 | WC ---
PHOTO 08/02/24 RIGHT GOMEZ
--- NOTE | 2024-08-03 12:33 | WC ---
PHOTO 08/02/24 RIGHT KNEE
--- NOTE | 2024-08-08 09:54 | WC ---
PHOTO 08/02/24 LEFT GOMEZ
--- NOTE | 2024-08-08 09:55 | WC ---
PHOTO 08/02/24 LEFT LATERAL LE
[2024-08-09 14:16] VITALS: BP 124/77; PULSE 94; RESP 22; TEMP 36.8
--- NOTE | 2024-08-09 15:51 | PN.PCM_ITS ---
History of Present Illness Date of Service: 08/09/24 Chief Complaint: Left anterior leg ulcer History of Wound: 88 year old female who is known to me. She has previously been seen at the wound center for several ulcers on her lower legs. She presented to me a week ago for a skin check in the office, at that time she showed me her left anterior leg wound that she obtained several weeks ago from bumping it against a piece of furniture. She been covering it with dry gauze. After I saw her last week she started using moistened Chuyita and I referred her to the wound healing center. She has a history of excision of multiple Squamous cell carcinomas, Actinic keratosis, Afib, chronic anticoagulation, CHF, chronic venous insufficiency, rheumatoid arthritis which she used to be on methotrexate. Today she states she feels well and denies fever, chills, nausea and vomiting. Progress of Wound: Patient comes in not looking well. She appears to be SOB, pulse ox is 97% on room air. Her lower leg edema is +2-+3 bilaterally now that she is wearing her compression but she has oozing of serous drainage on her right posterior thigh due to the amount of edema she has. There is no open wound there. She has a very moist cough and a hoarse voice. She also stated that she did not void through the night and did not need to void this morning when she got up. She has since voided several times through the day. Her right and left knee wounds and right anterior ankle and left lateral ankle wounds are smaller in size. Her right lateral leg and left anterior leg ulcers have significant amount of slough. Objective Data Objective Data Vital Signs: Vital Signs Temp Pulse Resp BP O2 Del Method 98.3 F 94 22 H 124/77 H Room Air 08/09/24 14:16 08/09/24 14:16 08/09/24 14:16 08/09/24 14:16 08/02/24 14:06 Oxygen Delivery Method Room Air Charges/Coding Procedures Integumentary 111xxx-113xx: [id number] Lian subq tissue 20 sq cm/< Add On Codes: 89808 Lian subq tissue add-on (x2) Debridement Note Debridement Note Wound debrided: Right knee (#22), Right anterior leg wound (#18), Right lateral leg (#19) Laterality: Right Type of Debridement: Excisional debridement Anesthesia Used: 5% Lidocaine Gel and Cetacaine (right lateral leg wound only) Depth: Down to and including healthy tissue and in the subcutaneous layer Percentage of wound debrided: 100 Instrument Used: 5mm curette Tissue Removed: Non viable tissue and slough Severity: Fat Layer Exposed Amount of bleeding with debridement: Mild Bleeding Controlled with: Pressure and Compression and gauze Patient tolerated procedure: Patient did not tolerate procedure well Debridement Free Text: She had a difficult time tolerating the debridements. Post-Debridement Measurements and Additional Note: Post-Debridement Measurements/Treatment - Nurse 1 - General Ulcer Assessment Start: 08/02/24 14:06 Freq: Status: Active Protocol: [email or web address] EnergyCOLE Activity Type Activity Date Activity User E-sign Co-sign Detail Recorded Client Recorded Date Recorded By Document 08/02/24 14:06 KW [id number] 08/02/24 14:29 KW Document 08/09/24 14:16 DL [id number] 08/09/24 14:33 DL 08/02/24 08/09/24 14:06 14:16 - Today's Visit Information Type of service Follow-up Visit Follow-up Visit (Physician/DEPOSITION REPORTER (Physician/DEPOSITION REPORTER ) ) Arrival Mode Ambulatory, Ambulatory, Walker Walker Transfer Assistance None Transfer Assist (Other) X1 Accompanied by caregiver Patient Identification Verified (Name & Yes Yes ) Patient Requires Transmission-Based No Precautions Vital Signs Temperature (97.8 F-99.1 F) 97.6 F L 98.3 F Temperature Source Temporal Temporal Pulse Rate (60-100) 76 94 Pulse Location Monitor Monitor Respiratory Rate (12-18) 16 22 H Respiratory rate source Observation Oxygen Delivery Method Room Air Blood Pressure (90/60-120/80) 149/73 H 124/77 H Blood Pressure Mean (mm Hg) 98 92 Source Monitor Monitor Position Sitting Blood Pressure Location Right Arm History Since Last Visit- (Skip if this is Patient's initial visit) Have you changed medications since your No No last visit? Any new allergies or adverse reactions No No Had a fall/change in ADL's that may No No increase risk of falls Signs or symptoms of abuse and/or No No neglect since last visit Have you been in the hospital since your No No last visit? Has dressing in place as prescribed Yes Yes Has compression in place as prescribed Yes Yes Has offloadiing in place as prescribed N/A Yes Experienced any changes in pain level or No No management Left Footwear Regular Shoe Right Footwear Regular Shoe Pain Scale: 0-10 Numeric Is Patient Pain Free? Yes Yes WC - Nurse 1 - General Ulcer Measurement Start: 08/02/24 14:06 Freq: Status: Active Protocol: Activity Type Activity Date Activity User E-sign Co-sign Detail Recorded Client Recorded Date Recorded By Document 08/02/24 14:06 KW [id number] 08/02/24 14:29 KW Document 08/09/24 14:16 DL [id number] 08/09/24 14:33 DL 08/02/24 08/09/24 14:06 14:16 Wound Center Nurse 1 22 rt knee -Current Size (cm) - Length 4 0.1 -Current Size (cm) - Width 2 0.1 -Current Size (cm) - Depth 0.1 0.1 -Total Square Cm 8 0.01 -Date of Last Picture (Recall this 08/02/24 field) -Exudate Amt Medium Medium -Exudate Type Serosanguineous Serosanguineous -Wound Margin Distinct, Distinct, Outline Outline Attached Attached -Granulation Amt Large (67-100%) Medium (34-66%) -Granulation Quality Red Red -Necrosis Amt Small (1-33%) Medium (34-66%) -Necrotic Tissue Type Eschar Adherent Slough -Structure Exposed N/A -Texture (Vangie-wound Skin Appearance) Assessed Scarring -Moisture (Vangie-wound Skin Appearance) Assessed Dry/Scaly -Color (Vangie-wound Skin Appearance) Assessed Hemosiderin Staining -Temperature (Vangie-wound Skin No Abnormality No Abnormality Appearance) (Pt Warm) (Pt Warm) -Tenderness on Palpation (Vangie-wound No Skin Appearance) -Ulcer Cleansing Not Cleansed Soap and Water -Foul Odor after Cleansing No No -Anesthetic Used 4% Lidocaine 5% Lidocaine Solution Gel 21 lt lat le -Current Size (cm) - Length 1.1 1 -Current Size (cm) - Width 2 1.7 -Current Size (cm) - Depth 0.3 0.2 -Total Square Cm 2.2 1.7 -Exudate Amt Small Small -Exudate Type Serosanguineous Serosanguineous -Wound Margin Distinct, Distinct, Outline Outline Attached Attached -Granulation Amt Medium (34-66%) Small (1-33%) -Granulation Quality Red [place] -Necrosis Amt Medium (34-66%) Small (1-33%) -Necrotic Tissue Type Adherent Slough Adherent Slough -Structure Exposed N/A -Texture (Vangie-wound Skin Appearance) Assessed Scarring -Moisture (Vangie-wound Skin Appearance) Assessed Dry/Scaly -Color (Vangie-wound Skin Appearance) Assessed Hemosiderin Staining -Temperature (Vangie-wound Skin No Abnormality No Abnormality Appearance) (Pt Warm) (Pt Warm) -Tenderness on Palpation (Vangie-wound No No Skin Appearance) -Ulcer Cleansing Soap and Water Soap and Water -Foul Odor after Cleansing No No -Anesthetic Used 4% Lidocaine 5% Lidocaine Solution Gel #20 lt knee -Current Size (cm) - Length 2 0.1 -Current Size (cm) - Width 1 0.1 -Current Size (cm) - Depth 0.1 0.1 -Total Square Cm 2 0.01 -Date of Last Picture (Recall this 08/02/24 field) -Exudate Amt Medium Medium -Exudate Type Serosanguineous Serosanguineous -Wound Margin Distinct, Distinct, Outline Outline Attached Attached -Granulation Amt Large (67-100%) Small (1-33%) -Granulation Quality Red Red -Necrosis Amt Small (1-33%) Small (1-33%) -Necrotic Tissue Type Adherent Slough Adherent Slough -Structure Exposed N/A -Texture (Vangie-wound Skin Appearance) Assessed Scarring -Moisture (Vangie-wound Skin Appearance) Assessed Dry/Scaly -Color (Vangie-wound Skin Appearance) Assessed Hemosiderin Staining -Temperature (Vangie-wound Skin No Abnormality No Abnormality Appearance) (Pt Warm) (Pt Warm) -Tenderness on Palpation (Vangie-wound No No Skin Appearance) -Ulcer Cleansing Soap and Water Soap and Water -Foul Odor after Cleansing No No -Anesthetic Used 4% Lidocaine 5% Lidocaine Solution Gel #19 RLE LAt -Current Size (cm) - Length 4 5.5 -Current Size (cm) - Width 5 4.7 -Current Size (cm) - Depth 0.2 0.2 -Total Square Cm 20 25.85 -Date of Last Picture (Recall this 08/02/24 field) -Exudate Amt Medium Medium -Exudate Type Serosanguineous Serosanguineous -Wound Margin Distinct, Distinct, Outline Outline Attached Attached -Granulation Amt Small (1-33%) Small (1-33%) -Granulation Quality Red Red -Necrosis Amt Large (67-100%) Large (67-100%) -Necrotic Tissue Type Adherent Slough Adherent Slough -Structure Exposed N/A -Texture (Vangie-wound Skin Appearance) Assessed Scarring -Moisture (Vangie-wound Skin Appearance) Assessed Dry/Scaly -Color (Vangie-wound Skin Appearance) Assessed Hemosiderin Staining -Temperature (Vangie-wound Skin No Abnormality No Abnormality Appearance) (Pt Warm) (Pt Warm) -Tenderness on Palpation (Vangie-wound No Skin Appearance) -Ulcer Cleansing Soap and Water Soap and Water -Foul Odor after Cleansing No No -Anesthetic Used 5% Lidocaine Gel #18 R Power -Current Size (cm) - Length 2 0.1 -Current Size (cm) - Width 3 0.1 -Current Size (cm) - Depth 0.1 0.1 -Total Square Cm 6 0.01 -Date of Last Picture (Recall this 08/02/24 field) -Exudate Amt None Present -Wound Margin Indistinct, Non -Visible -Granulation Amt None Present (0 %) -Slough/Fibrin No -Necrosis Amt Large (67-100%) -Necrotic Tissue Type Eschar -Structure Exposed N/A -Texture (Vangie-wound Skin Appearance) Assessed Scarring -Moisture (Vangie-wound Skin Appearance) Assessed Dry/Scaly -Color (Vangie-wound Skin Appearance) Assessed Hemosiderin Staining -Temperature (Vangie-wound Skin No Abnormality No Abnormality Appearance) (Pt Warm) (Pt Warm) -Tenderness on Palpation (Vangie-wound No No Skin Appearance) -Ulcer Cleansing Soap and Water Soap and Water -Foul Odor after Cleansing No No -Anesthetic Used 4% Lidocaine 5% Lidocaine Solution Gel #17 Left Lateral Power -Current Size (cm) - Length 4 0.1 -Current Size (cm) - Width 4 0.1 -Current Size (cm) - Depth 0.8 0.1 -Total Square Cm 16 0.01 -Date of Last Picture (Recall this 08/02/24 field) -Exudate Amt Medium None Present -Exudate Type Serosanguineous -Wound Margin Distinct, Outline Attached -Granulation Amt Small (1-33%) None Present (0 %) -Granulation Quality Red -Necrosis Amt Large (67-100%) None Present (0 %) -Necrotic Tissue Type Adherent Slough -Structure Exposed N/A -Texture (Vangie-wound Skin Appearance) Assessed Scarring -Moisture (Vangie-wound Skin Appearance) Assessed Dry/Scaly -Color (Vangie-wound Skin Appearance) Assessed Hemosiderin Staining -Temperature (Vangie-wound Skin No Abnormality No Abnormality Appearance) (Pt Warm) (Pt Warm) -Tenderness on Palpation (Vangie-wound No Skin Appearance) -Ulcer Cleansing Soap and Water Soap and Water -Foul Odor after Cleansing No No -Anesthetic Used 4% Lidocaine Solution Right Calf (cm) 43.5 38.5 Right Ankle (cm) 21.2 20.5 Left Calf (cm) 42 40 Left Ankle (cm) 24 23 WC - Nurse 2 - General Ulcer CM Notes Start: 08/02/24 14:06 Freq: Status: Active Protocol: Activity Type Activity Date Activity User E-sign Co-sign Detail Recorded Client Recorded Date Recorded By Document 08/02/24 14:36 [id number] 08/02/24 14:54 Document 08/09/24 14:40 [id number] 08/09/24 14:53 08/02/24 08/09/24 14:36 14:40 Wound Center Nurse 2 22 rt knee -Time 14:42 14:41 -Correct Patient Yes Yes -Correct Side, Site, Position Yes Yes -Correct Procedure Yes Yes -Procedure Performed Yes Yes -Type of Procedure Debridement Debridement -Clinical Debridement Subcutaneous Subcutaneous -Tissue Removed Subcutaneous Subcutaneous -Post Debridement (cm) - Length 4.0 3.8 -Post Debridement (cm) - Width 1.7 2.0 -Post Debridement (cm) - Depth 0.1 0.1 -Total Square (Post) (cm) 6.80 7.60 -Area of Debridement (cm) - Length 4.0 3.8 -Area of Debridement (cm) - Width 1.7 2.0 -Total Square (Area) (cm) 6.80 7.60 -Tunneling No No -Undermining/Tunneling No No -Circular Undermining No No -Wound/Ulcer Outcome Not Healed Not Healed -Ulcer Cleansing Rinsed/ Rinsed/ Irrigated with Irrigated with Saline Saline -Foul Odor after Cleansing No No -Bioengineered Tissue No No -Bleeding Controlled with Pressure Pressure -Treatment Response Procedure Procedure Tolerated Well Tolerated Well -Debridement - Subq, 1st 20sq cm No No 21 lt lat le -Time 14:47 14:41 -Correct Patient Yes Yes -Correct Side, Site, Position Yes Yes -Correct Procedure Yes Yes -Procedure Performed Yes Yes -Type of Procedure Debridement Debridement -Clinical Debridement Subcutaneous Subcutaneous -Tissue Removed Subcutaneous Subcutaneous -Post Debridement (cm) - Length 2.0 0.7 -Post Debridement (cm) - Width 2.0 0.7 -Post Debridement (cm) - Depth 0.1 0.2 -Total Square (Post) (cm) 4.00 0.49 -Area of Debridement (cm) - Length 2.0 0.7 -Area of Debridement (cm) - Width 2.0 0.7 -Total Square (Area) (cm) 4.00 0.49 -Tunneling No No -Undermining/Tunneling No No -Circular Undermining No No -Wound/Ulcer Outcome Not Healed Not Healed -Ulcer Cleansing Rinsed/ Rinsed/ Irrigated with Irrigated with Saline Saline -Foul Odor after Cleansing No No -Bioengineered Tissue No -Bleeding Controlled with Pressure Pressure -Treatment Response Procedure Procedure Tolerated Well Tolerated Well -Offloading No -Debridement - Subq, 1st 20sq cm No No #20 lt knee -Time 14:48 14:42 -Correct Patient Yes Yes -Correct Side, Site, Position Yes Yes -Correct Procedure Yes Yes -Procedure Performed Yes Yes -Type of Procedure Debridement Debridement -Clinical Debridement Subcutaneous Subcutaneous -Tissue Removed Subcutaneous Subcutaneous -Post Debridement (cm) - Length 1.5 1.5 -Post Debridement (cm) - Width 2.0 1.0 -Post Debridement (cm) - Depth 0.1 0.1 -Total Square (Post) (cm) 3.00 1.50 -Area of Debridement (cm) - Length 1.5 1.5 -Area of Debridement (cm) - Width 2.0 1.0 -Total Square (Area) (cm) 3.00 1.50 -Tunneling No No -Undermining/Tunneling No No -Circular Undermining No -Wound/Ulcer Outcome Not Healed Not Healed -Ulcer Cleansing Rinsed/ Rinsed/ Irrigated with Irrigated with Saline Saline -Foul Odor after Cleansing No No -Bioengineered Tissue No No -Bleeding Controlled with Pressure Pressure -Treatment Response Procedure Procedure Tolerated Well Tolerated Well -Debridement - Subq, 20sq cm No No #19 RLE LAt -Time 14:44 14:42 -Correct Patient Yes Yes -Correct Side, Site, Position Yes Yes -Correct Procedure Yes Yes -Procedure Performed Yes Yes -Type of Procedure Debridement Debridement -Clinical Debridement Subcutaneous Subcutaneous -Tissue Removed Subcutaneous Subcutaneous -Post Debridement (cm) - Length 3.8 5.2 -Post Debridement (cm) - Width 5.0 4.8 -Post Debridement (cm) - Depth 0.2 0.2 -Total Square (Post) (cm) 19.00 24.96 -Area of Debridement (cm) - Length 3.8 5.2 -Area of Debridement (cm) - Width 5.0 4.8 -Total Square (Area) (cm) 19.00 24.96 -Tunneling No No -Undermining/Tunneling No No -Circular Undermining No No -Wound/Ulcer Outcome Not Healed Not Healed -Ulcer Cleansing Rinsed/ Rinsed/ Irrigated with Irrigated with Saline Saline -Foul Odor after Cleansing No No -Bioengineered Tissue No No -Bleeding Controlled with Pressure Pressure -Treatment Response Procedure Procedure Tolerated Well Tolerated Well -Debridement - Subq, 20sq cm No No #18 R Power -Time 14:41 14:42 -Correct Patient Yes Yes -Correct Side, Site, Position Yes Yes -Correct Procedure Yes Yes -Procedure Performed Yes Yes -Type of Procedure Debridement Debridement -Clinical Debridement Subcutaneous Subcutaneous -Tissue Removed Subcutaneous Subcutaneous -Post Debridement (cm) - Length 1.9 1.0 -Post Debridement (cm) - Width 2.8 1.0 -Post Debridement (cm) - Depth 0.2 0.1 -Total Square (Post) (cm) 5.32 1.00 -Area of Debridement (cm) - Length 1.9 1.0 -Area of Debridement (cm) - Width 2.8 1.0 -Total Square (Area) (cm) 5.32 1.00 -Tunneling No No -Undermining/Tunneling No No -Circular Undermining No No -Wound/Ulcer Outcome Not Healed Not Healed -Ulcer Cleansing Rinsed/ Rinsed/ Irrigated with Irrigated with Saline Saline -Foul Odor after Cleansing No No -Bioengineered Tissue No No -Bleeding Controlled with Pressure Pressure -Treatment Response Procedure Procedure Tolerated Well Tolerated Well -Debridement - Subq, 1st 20sq cm No No #17 Left Lateral Power -Time 14:49 14:43 -Correct Patient Yes Yes -Correct Side, Site, Position Yes Yes -Correct Procedure Yes Yes -Procedure Performed Yes Yes -Type of Procedure Debridement Debridement -Clinical Debridement Subcutaneous Subcutaneous -Tissue Removed Subcutaneous Subcutaneous -Post Debridement (cm) - Length 4.0 4.5 -Post Debridement (cm) - Width 4.0 4.0 -Post Debridement (cm) - Depth 0.4 0.3 -Total Square (Post) (cm) 16.00 18.00 -Area of Debridement (cm) - Length 4.0 4.5 -Area of Debridement (cm) - Width 4.0 4.0 -Total Square (Area) (cm) 16.00 18.00 -Tunneling No No -Undermining/Tunneling No No -Circular Undermining No No -Wound/Ulcer Outcome Not Healed Not Healed -Ulcer Cleansing Rinsed/ Rinsed/ Irrigated with Irrigated with Saline Saline -Foul Odor after Cleansing No No -Bioengineered Tissue No No -Bleeding Controlled with Pressure Pressure -Treatment Response Procedure Procedure Tolerated Well Tolerated Well -Debridement - Subq, 1st 20sq cm Yes Yes -Debridement, SubQ, ea addt'l 20sq cm 2 2 or part thereof Pain Scale: 0-10 Numeric Is Patient Pain Free? Yes Yes - Nurse 3 - General Ulcer D/C NN Start: 08/02/24 14:06 Freq: Status: Active Protocol: Activity Type Activity Date Activity User E-sign Co-sign Detail Recorded Client Recorded Date Recorded By Document 08/02/24 15:10 [id number] 08/02/24 15:13 Document 08/09/24 15:12 [facility] [id number] 08/09/24 15:15 [facility] 08/02/24 08/09/24 15:10 15:12 Wound Care Center Nurse 3 22 rt knee -Ulcer Cleansing Rinsed/ Irrigated with Saline -Foul Odor after Cleansing No -Primary Dressing Applied Aquacel AG 4x4 -Primary Dressing Applied Promogran Chuyita Matter -Other Dressing ABD -Primary Dressing Covered/Secured with Dry Gauze Dry Gauze & Roll Gauze, Secured with Tape -Aquacel AG 4x4 1 -Promogran Chuyita Matter 2 21 lt lat le -Ulcer Cleansing Rinsed/ Irrigated with Saline -Foul Odor after Cleansing No -Primary Dressing Applied Promogran Chuyita Matter -Other Dressing aquacel ag ABD -Primary Dressing Covered/Secured with Dry Gauze Dry Gauze & Roll Gauze, Secured with Tape -Other Covering DRSG PER GM RN -Promogran Chuyita Matter 0 #20 lt knee -Ulcer Cleansing Rinsed/ Irrigated with Saline -Foul Odor after Cleansing No -Primary Dressing Applied Promogran Chuyita Matter -Other Dressing aquacel ag ABD -Primary Dressing Covered/Secured with Dry Gauze & Dry Gauze & Roll Gauze, Roll Gauze, Secured with Secured with Tape Tape -Other Covering DRSG PER GM RN -Promogran Chuyita Matter 0 #19 RLE LAt -Ulcer Cleansing Rinsed/ Irrigated with Saline -Foul Odor after Cleansing No -Primary Dressing Applied Promogran Chuyita Matter -Other Dressing aquacel ag ABD -Primary Dressing Covered/Secured with Dry Gauze Dry Gauze & Roll Gauze, Secured with Tape -Other Covering DRSG PER GM RN -Promogran Chuyita Matter 0 #18 R Power -Ulcer Cleansing Rinsed/ Irrigated with Saline -Foul Odor after Cleansing No -Other Dressing aqaucel ag DAKINS MOIST GAUZE -Primary Dressing Covered/Secured with Dry Gauze, Dry Gauze & Secured with Roll Gauze, Tape Secured with Tape -Other Covering ABD -Wound Comment(s) DRSG PER GM RN AND SS MORTGAGE LOAN SPECIALIST #17 Left Lateral Power -Ulcer Cleansing Rinsed/ Irrigated with Saline -Foul Odor after Cleansing No -Other Dressing aquacel ag DAKINS MOIST GAUZE, ABD -Primary Dressing Covered/Secured with Dry Gauze & Dry Gauze & Roll Gauze, Roll Gauze, Secured with Secured with Tape Tape -Other Covering DRSG PER GM RN AND SS MORTGAGE LOAN SPECIALIST BLE -Compression Wrap Francisco Javier Wrap -Tubular Bandage Single Layer -Size of Tubigrip Used Size E -Size E ($) 2 -Other FRANCISCO JAVIER OVER TUBIS Right -Compression Wrap Francisco Javier Wrap -Tubular Bandage Single Layer -Size of Tubigrip Used Size E -Size E ($) 1 Left -Compression Wrap Francisco Javier Wrap -Tubular Bandage Single Layer -Size of Tubigrip Used Size E -Size E ($) 1 Treatment Response Procedure Tolerated Well Pain Scale: 0-10 Numeric Is Patient Pain Free? Yes Yes WC - Visit Discharge Discharge Condition Stable Stable Ambulatory Status Ambulatory, Ambulatory, Walker Walker Transportation Private Auto Accompanied by FRIEND KRISTY Medication Reconcilliation completed & No provided to patient/care provider Clinical Summary of Care Provided Yes Notes: pt ok to use own compression stockings once swelling decreases back down Facility Type Detention Care Facility Additional Wound Wound debrided: Lateral midleg ulcer (#17), knee (#20), Lt distal lateral leg cluster(#21). Laterality: Left Type of Debridement: Excisional debridement Anesthesia Used: 5% Lidocaine Gel Depth: Down to and including healthy tissue and in the subcutaneous layer Percentage of wound debrided: 100 Instrument Used: 5mm curette Tissue Removed: Non viable tissue and slough Severity: Fat Layer Exposed Amount of bleeding with debridement: Mild Bleeding Controlled with: Compression and gauze Patient tolerated procedure: Patient did not tolerate procedure well Assessment/Plan Assessment/Plan (1) Ulcer of left lower extremity with fat layer exposed: CODE(S): L97.922 - Non-pressure chronic ulcer of unspecified part of left lower leg with fat layer exposed (2) Wound of left lower extremity: CODE(S): S81.802A - Unspecified open wound, left lower leg, initial encounter QUALIFIERS: Encounter type: initial encounter Qualified Code(s): S81.802A - Unspecified open wound, left lower leg, initial encounter (3) Wound of right lower extremity: CODE(S): S81.801A - Unspecified open wound, right lower leg, initial encounter QUALIFIERS: Encounter type: initial encounter Qualified Code(s): S81.801A - Unspecified open wound, right lower leg, initial encounter (4) Frequent falls: CODE(S): R29.6 - Repeated falls (5) Bilateral lower extremity edema: CODE(S): R60.0 - Localized edema (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 She has a very moist cough, hoarse voice and has dyspnea with and without exertion. She does not look well and is disheveled, which is NOT typical for her. She now lives in assisted living at [facility] in [place] and has fallen twice in the last month. Wound care? To the left anterior ulcer and right lateral ulcer place lightly moistened 0.25% Dakin's covered with ABD daily. To the bilateral knee wounds, left anterior ankle and right lateral ankle wounds place Chuyita and cover with ABD and secure with kerlix gauze. Compression: Single tubigrip and FRANCISCO JAVIER wrap. I want to compress her slowly so that she doesn't go into fluid volume overload. Stressed to Nelli the importance of her wearing compression. Due to how she is breathing, I recommend that she go to the ED for further evaluation. She does have an appointment with her certified medication technician tomorrow. Her friend who drives her to her appointments will contact the patient's daughter to discuss which ED ([place] or [place] ) she should take Nelli to or if her daughter wants her to wait until her cardiology appointment tomorrow. She will follow-up in 2 week. Call or come in sooner if develop any concerns.
[2024-08-23 14:08] VITALS: BP 133/50; PULSE 63; RESP 20; TEMP 36.6
--- NOTE | 2024-08-23 17:01 | PN.PCM_ITS ---
History of Present Illness Date of Service: 08/23/24 Chief Complaint: Left anterior leg ulcer History of Wound: 89 year old female who is known to me. She has previously been seen at the wound center for several ulcers on her lower legs. She presented to me a week ago for a skin check in the office, at that time she showed me her left anterior leg wound that she obtained several weeks ago from bumping it against a piece of furniture. She been covering it with dry gauze. After I saw her last week she started using moistened Chuyita and I referred her to the wound healing center. She has a history of excision of multiple Squamous cell carcinomas, Actinic keratosis, Afib, chronic anticoagulation, CHF, chronic venous insufficiency, rheumatoid arthritis which she used to be on methotrexate. Since being seen initially for her left anterior leg wound she has fallen several times and has obtained several more wounds to her bilateral legs. She also has had some issues with her CHF and is now in long term for rehab services. Today she states she feels well and denies fever, chills, nausea and vomiting. Progress of Wound: Patient is now in a long term facility getting rehab services. She is not as edematous as she was at her last visit. She has had several ED visits and 1 hospitalization. Her right and left knee wounds are smaller and more superficial. She has a new skin tear on her left proximal forearm near her elb ow. Her left anterior leg and right lateral leg ulcers are stable. Her right anterior ankle and left lateral ankle wounds are healed today. Her edema is much improved +1-+2 bilaterally. He abdomen is much less bloated looking and she no longer has moist cough. Objective Data Objective Data Vital Signs: Vital Signs Temp Pulse Resp BP O2 Del Method 97.8 F 63 20 H 133/50 H Room Air 08/23/24 14:08 08/23/24 14:08 08/23/24 14:08 08/23/24 14:08 08/02/24 14:06 Oxygen Delivery Method Room Air Charges/Coding Procedures Integumentary [id number]: [id number] Lian subq tissue 20 sq cm/< Add On Codes: 98232 Lian subq tissue add-on (x2) Debridement Note Debridement Note Wound debrided: Right knee (#22), Right anterior leg wound (#18) Laterality: Right Type of Debridement: Excisional debridement Anesthesia Used: 5% Lidocaine Gel and Cetacaine (right lateral leg wound only) Depth: Down to and including healthy tissue and in the subcutaneous layer Percentage of wound debrided: 100 Instrument Used: 5mm curette Tissue Removed: Non viable tissue and slough Severity: Fat Layer Exposed Amount of bleeding with debridement: Mild Bleeding Controlled with: Pressure and Compression and gauze Patient tolerated procedure: Patient did not tolerate procedure well Debridement Free Text: She had a difficult time tolerating the debridements. Post-Debridement Measurements and Additional Note: Post-Debridement Measurements/Treatment - Nurse 1 - General Ulcer Assessment Start: 08/02/24 14:06 Freq: Status: Active Protocol: [email or web address] Activity Type Activity Date Activity User E-sign Co-sign Detail Recorded Client Recorded Date Recorded By Document 08/02/24 14:06 KW [id number] 08/02/24 14:29 KW Document 08/09/24 14:16 DL [id number] 08/09/24 14:33 DL Document 08/23/24 14:08 DL [id number] 08/23/24 14:29 DL 08/02/24 08/09/24 08/23/24 14:06 14:16 14:08 - Today's Visit Information Type of service Follow-up Visit Follow-up Visit Follow-up Visit (Physician/SEISMOGRAPH OPERATOR HELPER (Physician/SEISMOGRAPH OPERATOR HELPER (Physician/SEISMOGRAPH OPERATOR HELPER ) ) ) Arrival Mode Ambulatory, Ambulatory, Wheelchair Walker Walker Transfer Assistance None None Transfer Assist (Other) X1 Accompanied by caregiver Patient Identification Verified (Name & Yes Yes Yes ) Patient Requires Transmission-Based No No Precautions Vital Signs Temperature (97.8 F-99.1 F) 97.6 F L 98.3 F 97.8 F Temperature Source Temporal Temporal Temporal Pulse Rate (60-100) 76 94 63 Pulse Location Monitor Monitor Monitor Respiratory Rate (12-18) 16 22 H 20 H Respiratory rate source Observation Observation Oxygen Delivery Method Room Air Blood Pressure (90/60-120/80) 149/73 H 124/77 H 133/50 H Blood Pressure Mean (mm Hg) 98 92 77 Source Monitor Monitor Monitor Position Sitting Blood Pressure Location Right Arm History Since Last Visit- (Skip if this is Patient's initial visit) Have you changed medications since your No No No last visit? Any new allergies or adverse reactions No No No Had a fall/change in ADL's that may No No No increase risk of falls Signs or symptoms of abuse and/or No No No neglect since last visit Have you been in the hospital since your No No Yes last visit? Has dressing in place as prescribed Yes Yes Yes Has compression in place as prescribed Yes Yes Yes Has offloadiing in place as prescribed N/A Yes Yes Experienced any changes in pain level or No No No management Left Footwear Regular Shoe Right Footwear Regular Shoe Pain Scale: 0-10 Numeric Is Patient Pain Free? Yes Yes Yes WC - Nurse 1 - General Ulcer Measurement Start: 08/02/24 14:06 Freq: Status: Active Protocol: Activity Type Activity Date Activity User E-sign Co-sign Detail Recorded Client Recorded Date Recorded By Document 08/02/24 14:06 KW [id number] 08/02/24 14:29 KW Document 08/09/24 14:16 DL [id number] 08/09/24 14:33 DL Document 08/23/24 14:08 DL [id number] 08/23/24 14:29 DL 08/02/24 08/09/24 08/23/24 14:06 14:16 14:08 Wound Center Nurse 1 21 lt lat le -Current Size (cm) - Length 1.1 1 0.1 -Current Size (cm) - Width 2 1.7 0.1 -Current Size (cm) - Depth 0.3 0.2 0.1 -Total Square Cm 2.2 1.7 0.01 -Exudate Amt Small Small None Present -Exudate Type Serosanguineous Serosanguineous -Wound Margin Distinct, Distinct, Indistinct, Non Outline Outline -Visible Attached Attached -Granulation Amt Medium (34-66%) Small (1-33%) Large (67-100%) -Granulation Quality Red [place] -Necrosis Amt Medium (34-66%) Small (1-33%) None Present (0 %) -Necrotic Tissue Type Adherent Slough Adherent Slough -Structure Exposed N/A N/A -Texture (Vangie-wound Skin Appearance) Assessed Scarring Scarring -Moisture (Vangie-wound Skin Appearance) Assessed Dry/Scaly Dry/Scaly -Color (Vangie-wound Skin Appearance) Assessed Hemosiderin Hemosiderin Staining Staining -Temperature (Vangie-wound Skin No Abnormality No Abnormality No Abnormality Appearance) (Pt Warm) (Pt Warm) (Pt Warm) -Tenderness on Palpation (Vangie-wound No No Skin Appearance) -Ulcer Cleansing Soap and Water Soap and Water Soap and Water -Foul Odor after Cleansing No No No -Anesthetic Used 4% Lidocaine 5% Lidocaine Solution Gel #18 R Power -Current Size (cm) - Length 2 0.1 4.8 -Current Size (cm) - Width 3 0.1 3.8 -Current Size (cm) - Depth 0.1 0.1 0.2 -Total Square Cm 6 0.01 18.24 -Date of Last Picture (Recall this 08/02/24 field) -Exudate Amt None Present Medium -Exudate Type Serosanguineous -Wound Margin Indistinct, Non Distinct, -Visible Outline Attached -Granulation Amt None Present (0 None Present (0 %) %) -Slough/Fibrin No -Necrosis Amt Large (67-100%) Large (67-100%) -Necrotic Tissue Type Eschar Adherent Slough -Structure Exposed N/A N/A -Texture (Vangie-wound Skin Appearance) Assessed Scarring Scarring -Moisture (Vangie-wound Skin Appearance) Assessed Dry/Scaly Dry/Scaly -Color (Vangie-wound Skin Appearance) Assessed Hemosiderin Hemosiderin Staining Staining -Temperature (Vangie-wound Skin No Abnormality No Abnormality No Abnormality Appearance) (Pt Warm) (Pt Warm) (Pt Warm) -Tenderness on Palpation (Vangie-wound No No Skin Appearance) -Ulcer Cleansing Soap and Water Soap and Water Soap and Water -Foul Odor after Cleansing No No No -Anesthetic Used 4% Lidocaine 5% Lidocaine 5% Lidocaine Solution Gel Gel 22 rt knee -Current Size (cm) - Length 4 0.1 2 -Current Size (cm) - Width 2 0.1 2.5 -Current Size (cm) - Depth 0.1 0.1 0.1 -Total Square Cm 8 0.01 5.0 -Date of Last Picture (Recall this 08/02/24 field) -Exudate Amt Medium Medium Medium -Exudate Type Serosanguineous Serosanguineous Sanguineous -Wound Margin Distinct, Distinct, Distinct, Outline Outline Outline Attached Attached Attached -Granulation Amt Large (67-100%) Medium (34-66%) Large (67-100%) -Granulation Quality Red Red [place] -Necrosis Amt Small (1-33%) Medium (34-66%) Small (1-33%) -Necrotic Tissue Type Eschar Adherent Slough Adherent Slough -Structure Exposed N/A N/A -Texture (Vangie-wound Skin Appearance) Assessed Scarring Scarring -Moisture (Vangie-wound Skin Appearance) Assessed Dry/Scaly Dry/Scaly -Color (Vangie-wound Skin Appearance) Assessed Hemosiderin Hemosiderin Staining Staining -Temperature (Vangie-wound Skin No Abnormality No Abnormality No Abnormality Appearance) (Pt Warm) (Pt Warm) (Pt Warm) -Tenderness on Palpation (Vangie-wound No No Skin Appearance) -Ulcer Cleansing Not Cleansed Soap and Water Soap and Water -Foul Odor after Cleansing No No No -Anesthetic Used 4% Lidocaine 5% Lidocaine 5% Lidocaine Solution Gel Gel #20 lt knee -Current Size (cm) - Length 2 0.1 2.8 -Current Size (cm) - Width 1 0.1 2.2 -Current Size (cm) - Depth 0.1 0.1 0.1 -Total Square Cm 2 0.01 6.16 -Date of Last Picture (Recall this 08/02/24 field) -Exudate Amt Medium Medium Medium -Exudate Type Serosanguineous Serosanguineous Sanguineous -Wound Margin Distinct, Distinct, Distinct, Outline Outline Outline Attached Attached Attached -Granulation Amt Large (67-100%) Small (1-33%) Medium (34-66%) -Granulation Quality Red [place] -Necrosis Amt Small (1-33%) Small (1-33%) Medium (34-66%) -Necrotic Tissue Type Adherent Slough Adherent Slough Adherent Slough -Structure Exposed N/A N/A -Texture (Vangie-wound Skin Appearance) Assessed Scarring Scarring -Moisture (Vangie-wound Skin Appearance) Assessed Dry/Scaly Dry/Scaly -Color (Vangie-wound Skin Appearance) Assessed Hemosiderin Hemosiderin Staining Staining -Temperature (Vangie-wound Skin No Abnormality No Abnormality No Abnormality Appearance) (Pt Warm) (Pt Warm) (Pt Warm) -Tenderness on Palpation (Vangie-wound No No Skin Appearance) -Ulcer Cleansing Soap and Water Soap and Water Soap and Water -Foul Odor after Cleansing No No No -Anesthetic Used 4% Lidocaine 5% Lidocaine 5% Lidocaine Solution Gel Gel #19 RLE LAt -Current Size (cm) - Length 4 5.5 5 -Current Size (cm) - Width 5 4.7 4.8 -Current Size (cm) - Depth 0.2 0.2 0.1 -Total Square Cm 20 25.85 24.0 -Date of Last Picture (Recall this 08/02/24 field) -Exudate Amt Medium Medium Medium -Exudate Type Serosanguineous Serosanguineous Serosanguineous -Wound Margin Distinct, Distinct, Distinct, Outline Outline Outline Attached Attached Attached -Granulation Amt Small (1-33%) Small (1-33%) Small (1-33%) -Granulation Quality Red [place] -Necrosis Amt Large (67-100%) Large (67-100%) Large (67-100%) -Necrotic Tissue Type Adherent Slough Adherent Slough Adherent Slough -Structure Exposed N/A N/A -Texture (Vangie-wound Skin Appearance) Assessed Scarring Scarring -Moisture (Vangie-wound Skin Appearance) Assessed Dry/Scaly Dry/Scaly -Color (Vangie-wound Skin Appearance) Assessed Hemosiderin Hemosiderin Staining Staining -Temperature (Vangie-wound Skin No Abnormality No Abnormality No Abnormality Appearance) (Pt Warm) (Pt Warm) (Pt Warm) -Tenderness on Palpation (Vangie-wound No No Skin Appearance) -Ulcer Cleansing Soap and Water Soap and Water Soap and Water -Foul Odor after Cleansing No No No -Anesthetic Used 5% Lidocaine 5% Lidocaine Gel Gel #17 Left Lateral Power -Current Size (cm) - Length 4 0.1 0.1 -Current Size (cm) - Width 4 0.1 0.1 -Current Size (cm) - Depth 0.8 0.1 0.1 -Total Square Cm 16 0.01 0.01 -Date of Last Picture (Recall this 08/02/24 field) -Exudate Amt Medium None Present None Present -Exudate Type Serosanguineous -Wound Margin Distinct, Indistinct, Non Outline -Visible Attached -Granulation Amt Small (1-33%) None Present (0 Large (67-100%) %) -Granulation Quality Red [place] -Necrosis Amt Large (67-100%) None Present (0 None Present (0 %) %) -Necrotic Tissue Type Adherent Slough -Structure Exposed N/A N/A -Texture (Vangie-wound Skin Appearance) Assessed Scarring No Abnormality -Moisture (Vnagie-wound Skin Appearance) Assessed Dry/Scaly Dry/Scaly -Color (Vangie-wound Skin Appearance) Assessed Hemosiderin Hemosiderin Staining Staining -Temperature (Vangie-wound Skin No Abnormality No Abnormality No Abnormality Appearance) (Pt Warm) (Pt Warm) (Pt Warm) -Tenderness on Palpation (Vangie-wound No Skin Appearance) -Ulcer Cleansing Soap and Water Soap and Water Soap and Water -Foul Odor after Cleansing No No No -Anesthetic Used 4% Lidocaine Solution Right Calf (cm) 43.5 38.5 Right Ankle (cm) 21.2 20.5 Left Calf (cm) 42 40 Left Ankle (cm) 24 23 WC - Nurse 2 - General Ulcer CM Notes Start: 08/02/24 14:06 Freq: Status: Active Protocol: Activity Type Activity Date Activity User E-sign Co-sign Detail Recorded Client Recorded Date Recorded By Document 08/02/24 14:36 [id number] 08/02/24 14:54 Document 08/09/24 14:40 [id number] 08/09/24 14:53 Document 08/23/24 15:20 [id number] 08/23/24 15:42 08/02/24 08/09/24 08/23/24 14:36 14:40 15:20 Wound Center Nurse 2 21 lt lat le -Time 14:47 14:41 -Correct Patient Yes Yes -Correct Side, Site, Position Yes Yes -Correct Procedure Yes Yes -Procedure Performed Yes Yes -Type of Procedure Debridement Debridement -Clinical Debridement Subcutaneous Subcutaneous -Tissue Removed Subcutaneous Subcutaneous -Post Debridement (cm) - Length 2.0 0.7 -Post Debridement (cm) - Width 2.0 0.7 -Post Debridement (cm) - Depth 0.1 0.2 -Total Square (Post) (cm) 4.00 0.49 -Area of Debridement (cm) - Length 2.0 0.7 -Area of Debridement (cm) - Width 2.0 0.7 -Total Square (Area) (cm) 4.00 0.49 -Tunneling No No -Undermining/Tunneling No No -Circular Undermining No No -Wound/Ulcer Outcome Not Healed Not Healed -Ulcer Cleansing Rinsed/ Rinsed/ Irrigated with Irrigated with Saline Saline -Foul Odor after Cleansing No No -Bioengineered Tissue No -Bleeding Controlled with Pressure Pressure -Treatment Response Procedure Procedure Tolerated Well Tolerated Well -Offloading No -Debridement - Subq, 1st 20sq cm No No #18 R Power -Time 14:41 14:42 -Correct Patient Yes Yes -Correct Side, Site, Position Yes Yes -Correct Procedure Yes Yes -Procedure Performed Yes Yes -Type of Procedure Debridement Debridement -Clinical Debridement Subcutaneous Subcutaneous -Tissue Removed Subcutaneous Subcutaneous -Post Debridement (cm) - Length 1.9 1.0 -Post Debridement (cm) - Width 2.8 1.0 -Post Debridement (cm) - Depth 0.2 0.1 -Total Square (Post) (cm) 5.32 1.00 -Area of Debridement (cm) - Length 1.9 1.0 -Area of Debridement (cm) - Width 2.8 1.0 -Total Square (Area) (cm) 5.32 1.00 -Tunneling No No -Undermining/Tunneling No No -Circular Undermining No No -Wound/Ulcer Outcome Not Healed Not Healed -Ulcer Cleansing Rinsed/ Rinsed/ Irrigated with Irrigated with Saline Saline -Foul Odor after Cleansing No No -Bioengineered Tissue No No -Bleeding Controlled with Pressure Pressure -Treatment Response Procedure Procedure Tolerated Well Tolerated Well -Debridement - Subq, 1st 20sq cm No No 22 rt knee -Time 14:42 14:41 15:38 -Correct Patient Yes Yes Yes -Correct Side, Site, Position Yes Yes Yes -Correct Procedure Yes Yes No -Procedure Performed Yes Yes No -Type of Procedure Debridement Debridement -Clinical Debridement Subcutaneous Subcutaneous -Tissue Removed Subcutaneous Subcutaneous -Post Debridement (cm) - Length 4.0 3.8 3.0 -Post Debridement (cm) - Width 1.7 2.0 2.3 -Post Debridement (cm) - Depth 0.1 0.1 0.1 -Total Square (Post) (cm) 6.80 7.60 6.90 -Area of Debridement (cm) - Length 4.0 3.8 -Area of Debridement (cm) - Width 1.7 2.0 -Total Square (Area) (cm) 6.80 7.60 -Tunneling No No No -Undermining/Tunneling No No No -Circular Undermining No No No -Wound/Ulcer Outcome Not Healed Not Healed Not Healed -Ulcer Cleansing Rinsed/ Rinsed/ Not Cleansed Irrigated with Irrigated with Saline Saline -Foul Odor after Cleansing No No No -Bioengineered Tissue No No -Bleeding Controlled with Pressure Pressure NA -Treatment Response Procedure Procedure Tolerated Well Tolerated Well -Debridement - Subq, 1st 20sq cm No No #20 lt knee -Time 14:48 14:42 15:39 -Correct Patient Yes Yes Yes -Correct Side, Site, Position Yes Yes Yes -Correct Procedure Yes Yes No -Procedure Performed Yes Yes No -Type of Procedure Debridement Debridement -Clinical Debridement Subcutaneous Subcutaneous -Tissue Removed Subcutaneous Subcutaneous -Post Debridement (cm) - Length 1.5 1.5 3.0 -Post Debridement (cm) - Width 2.0 1.0 3.0 -Post Debridement (cm) - Depth 0.1 0.1 0.1 -Total Square (Post) (cm) 3.00 1.50 9.00 -Area of Debridement (cm) - Length 1.5 1.5 -Area of Debridement (cm) - Width 2.0 1.0 -Total Square (Area) (cm) 3.00 1.50 -Tunneling No No -Undermining/Tunneling No No -Circular Undermining No -Wound/Ulcer Outcome Not Healed Not Healed -Ulcer Cleansing Rinsed/ Rinsed/ Irrigated with Irrigated with Saline Saline -Foul Odor after Cleansing No No -Bioengineered Tissue No No -Bleeding Controlled with Pressure Pressure -Treatment Response Procedure Procedure Tolerated Well Tolerated Well -Debridement - Subq, 1st 20sq cm No No #19 RLE LAt -Time 14:44 14:42 15:40 -Correct Patient Yes Yes Yes -Correct Side, Site, Position Yes Yes Yes -Correct Procedure Yes Yes Yes -Procedure Performed Yes Yes Yes -Type of Procedure Debridement Debridement Debridement -Clinical Debridement Subcutaneous Subcutaneous Subcutaneous -Tissue Removed Subcutaneous Subcutaneous Subcutaneous -Post Debridement (cm) - Length 3.8 5.2 5.5 -Post Debridement (cm) - Width 5.0 4.8 5.0 -Post Debridement (cm) - Depth 0.2 0.2 0.1 -Total Square (Post) (cm) 19.00 24.96 27.50 -Area of Debridement (cm) - Length 3.8 5.2 5.5 -Area of Debridement (cm) - Width 5.0 4.8 5.0 -Total Square (Area) (cm) 19.00 24.96 27.50 -Tunneling No No No -Undermining/Tunneling No No No -Circular Undermining No No No -Wound/Ulcer Outcome Not Healed Not Healed Not Healed -Ulcer Cleansing Rinsed/ Rinsed/ Rinsed/ Irrigated with Irrigated with Irrigated with Saline Saline Saline -Foul Odor after Cleansing No No No -Bioengineered Tissue No No No -Bleeding Controlled with Pressure Pressure Pressure -Treatment Response Procedure Procedure Procedure Tolerated Well Tolerated Well Tolerated Well -Debridement - Subq, 1st 20sq cm No No Yes -Debridement, SubQ, ea addt'l 20sq cm 2 or part thereof #17 Left Lateral Power -Time 14:49 14:43 15:36 -Correct Patient Yes Yes Yes -Correct Side, Site, Position Yes Yes Yes -Correct Procedure Yes Yes Yes -Procedure Performed Yes Yes Yes -Type of Procedure Debridement Debridement Debridement -Clinical Debridement Subcutaneous Subcutaneous Subcutaneous -Tissue Removed Subcutaneous Subcutaneous Subcutaneous -Post Debridement (cm) - Length 4.0 4.5 4.5 -Post Debridement (cm) - Width 4.0 4.0 3.8 -Post Debridement (cm) - Depth 0.4 0.3 0.2 -Total Square (Post) (cm) 16.00 18.00 17.10 -Area of Debridement (cm) - Length 4.0 4.5 4.5 -Area of Debridement (cm) - Width 4.0 4.0 3.8 -Total Square (Area) (cm) 16.00 18.00 17.10 -Tunneling No No No -Undermining/Tunneling No No No -Circular Undermining No No No -Wound/Ulcer Outcome Not Healed Not Healed Not Healed -Ulcer Cleansing Rinsed/ Rinsed/ Rinsed/ Irrigated with Irrigated with Irrigated with Saline Saline Saline -Foul Odor after Cleansing No No No -Bioengineered Tissue No No No -Bleeding Controlled with Pressure Pressure Pressure -Treatment Response Procedure Procedure Procedure Tolerated Well Tolerated Well Tolerated Well -Debridement - Subq, 1st 20sq cm Yes Yes No -Debridement, SubQ, ea addt'l 20sq cm 2 2 or part thereof Pain Scale: 0-10 Numeric Is Patient Pain Free? Yes Yes Yes WC - Nurse 3 - General Ulcer D/C NN Start: 08/02/24 14:06 Freq: Status: Active Protocol: Activity Type Activity Date Activity User E-sign Co-sign Detail Recorded Client Recorded Date Recorded By Document 08/02/24 15:10 KW [id number] 08/02/24 15:13 KW Document 08/09/24 15:12 [facility] [id number] 08/09/24 15:15 BM Document 08/23/24 16:00 [facility] [id number] 08/23/24 16:03 BMF 08/02/24 08/09/24 08/23/24 15:10 15:12 16:00 Wound Care Center Nurse 3 21 lt lat le -Ulcer Cleansing Rinsed/ Irrigated with Saline -Foul Odor after Cleansing No -Primary Dressing Applied Promogran Chuyita Matter -Other Dressing aquacel ag ABD -Primary Dressing Covered/Secured with Dry Gauze Dry Gauze & Roll Gauze, Secured with Tape -Other Covering DRSG PER GM RN -Promogran Chuyita Matter 0 #18 R Power -Ulcer Cleansing Rinsed/ Irrigated with Saline -Foul Odor after Cleansing No -Other Dressing aqaucel ag DAKINS MOIST GAUZE -Primary Dressing Covered/Secured with Dry Gauze, Dry Gauze & Secured with Roll Gauze, Tape Secured with Tape -Other Covering ABD -Wound Comment(s) DRSG PER GM RN AND SS FARMWORKER ANIMAL 22 rt knee -Ulcer Cleansing Rinsed/ Rinsed/ Irrigated with Irrigated with Saline Saline -Foul Odor after Cleansing No No -Primary Dressing Applied Aquacel AG 4x4 -Primary Dressing Applied Promogran NonAdherent Chuyita Matter Contact Layer -Other Dressing ABD abd -Primary Dressing Covered/Secured with Dry Gauze Dry Gauze & Dry Gauze & Roll Gauze, Roll Gauze, Secured with Secured with Tape Tape -Aquacel AG 4x4 1 -Promogran Chuyita Matter 2 #20 lt knee -Ulcer Cleansing Rinsed/ Rinsed/ Irrigated with Irrigated with Saline Saline -Foul Odor after Cleansing No No -Primary Dressing Applied Promogran NonAdherent Ch[place] Matter Contact Layer -Other Dressing aquacel ag ABD xeroform; abd -Primary Dressing Covered/Secured with Dry Gauze & Dry Gauze & Dry Gauze & Roll Gauze, Roll Gauze, Roll Gauze, Secured with Secured with Secured with Tape Tape Tape -Other Covering DRSG PER GM RN -Promogran Chuyita Matter 0 #19 RLE LAt -Ulcer Cleansing Rinsed/ Rinsed/ Irrigated with Irrigated with Saline Saline -Foul Odor after Cleansing No No -Primary Dressing Applied Promogran Aquacel AG 4x4 Chuyita Matter -Other Dressing aquacel ag ABD abd -Primary Dressing Covered/Secured with Dry Gauze Dry Gauze & Dry Gauze & Roll Gauze, Roll Gauze, Secured with Secured with Tape Tape -Other Covering DRSG PER GM RN -Aquacel AG 4x4 1 -Promogran Chuyita Matter 0 #17 Left Lateral Power -Ulcer Cleansing Rinsed/ Rinsed/ Irrigated with Irrigated with Saline Saline -Foul Odor after Cleansing No No -Primary Dressing Applied Aquacel AG 4x4 -Other Dressing aquacel ag DAKINS MOIST abd GAUZE, ABD -Primary Dressing Covered/Secured with Dry Gauze & Dry Gauze & Dry Gauze & Roll Gauze, Roll Gauze, Roll Gauze, Secured with Secured with Secured with Tape Tape Tape -Other Covering DRSG PER GM RN AND SS FARMWORKER ANIMAL -Aquacel AG 4x4 0 BLE -Compression Wrap Francisco Javier Wrap -Tubular Bandage Single Layer Double Layer -Size of Tubigrip Used Size E Size E -Size E ($) 2 2 -Other FRANCISCO JAVIER OVER TUBIS Right -Compression Wrap Francisco Javier Wrap -Tubular Bandage Single Layer -Size of Tubigrip Used Size E -Size E ($) 1 Left -Compression Wrap Francisco Javier Wrap -Tubular Bandage Single Layer -Size of Tubigrip Used Size E -Size E ($) 1 Treatment Response Procedure Procedure Tolerated Well Tolerated Well Pain Scale: 0-10 Numeric Is Patient Pain Free? Yes Yes Yes WC - Visit Discharge Discharge Condition Stable Stable Stable Ambulatory Status Ambulatory, Ambulatory, Wheelchair Walker Walker Transportation Private Auto ecf transport Accompanied by FRIEND KRISTY severino Medication Reconcilliation completed & No provided to patient/care provider Clinical Summary of Care Provided Yes Notes: pt ok to use own compression stockings once swelling decreases back down Facility Type [facility] Facility Additional Wound Wound debrided: Lateral midleg (anterior leg) ulcer (#17), knee (#20) Laterality: Left Type of Debridement: Excisional debridement Anesthesia Used: 5% Lidocaine Gel Depth: Down to and including healthy tissue and in the subcutaneous layer Percentage of wound debrided: 100 Instrument Used: 5mm curette Tissue Removed: Non viable tissue and slough Severity: Fat Layer Exposed Amount of bleeding with debridement: Mild Bleeding Controlled with: Compression and gauze Patient tolerated procedure: Patient did not tolerate procedure well Assessment/Plan Assessment/Plan (1) Ulcer of left lower extremity with fat layer exposed: CODE(S): L97.922 - Non-pressure chronic ulcer of unspecified part of left lower leg with fat layer exposed (2) Frequent falls: CODE(S): R29.6 - Repeated falls (3) Bilateral lower extremity edema: CODE(S): R60.0 - Localized edema (4) 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: CODE(S): Z79.01 - 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 (5) Chronic venous insufficiency: (6) Personal history of skin cancer: CODE(S): Z85.828 - Personal history of other malignant neoplasm of skin (7) Former smoker: CODE(S): Z87.891 - Personal history of nicotine dependence (8) History of CHF (congestive heart failure): CODE(S): Z86.79 - Personal history of other diseases of the circulatory system (9) Ulcer of right lower extremity with fat layer exposed: CODE(S): L97.912 - Non-pressure chronic ulcer of unspecified part of right lower leg with fat layer exposed (10) Skin tear of right elbow without complication: CODE(S): S51.011A - Laceration without foreign body of right elbow, initial encounter PLAN: Plan Patient evaluated at the wound healing center today. She appears better today. She is now in an [facility] for rehab to help her get her strength back after several falls and a recent hospitalization. Wound care? To the left anterior ulcer and right lateral ulcer place lightly Aquacel-Ag covered with ABD daily. To the bilateral knee wounds, and left elbow skin tear place Xeroform gauze and cover with ABD daily. Wash all wounds/ulcers with soap and water at the time of dressing changes. Compression: Double tubigrips. She will follow-up in 4 weeks due to her being in ECF for rehab services. Call or come in sooner if develop any concerns.
== END 2024-08-25 23:59 | disposition skilled nursing facility (03) ==
LOC: WC 14:00
PROVIDERS: PCP Family Medicine; Referring Provider Nurse Practitioner Family; Visit Provider Nurse Practitioner Family
DX: L97.922 Non-pressure chronic ulcer of unspecified part of left lower leg with fat layer exposed (principal); L97.912 Non-pressure chronic ulcer of unspecified part of right lower leg with fat layer exposed; Z79.01 Long term (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; I87.2 Venous insufficiency (chronic) (peripheral); Z87.891 Personal history of nicotine dependence; R29.6 Repeated falls; R60.0 Localized edema; Z85.828 Personal history of other malignant neoplasm of skin; Z86.79 Personal history of other diseases of the circulatory system; S51.011A Laceration without foreign body of right elbow, initial encounter; R06.02 Shortness of breath
CPT/HCPCS: 11042; 11045

== ENCOUNTER 2024-10-11 14:14 | Outpatient (RCR) | payer MEDICARE, OTHER, SELFPAY ==
[2024-08-26 01:58] VITALS: BP 133/50; PULSE 63; RESP 20; TEMP 36.6
[2024-10-11 14:19] VITALS: BP 140/69; PULSE 80; RESP 18; TEMP 36.3
--- NOTE | 2024-10-11 16:03 | PN.PCM_ITS ---
History of Present Illness Date of Service: 10/11/24 Chief Complaint: Left anterior leg ulcer History of Wound: 88 year old female who is known to me. She has previously been seen at the wound center for several ulcers on her lower legs. She presented to me a week ago for a skin check in the office, at that time she showed me her left anterior leg wound that she obtained several weeks ago from bumping it against a piece of furniture. She been covering it with dry gauze. After I saw her last week she started using moistened Ch[place]ita and I referred her to the wound healing center. She has a history of excision of multiple Squamous cell carcinomas, Actinic keratosis, Afib, chronic anticoagulation, CHF, chronic venous insufficiency, rheumatoid arthritis which she used to be on methotrexate. Today she states she feels well and denies fever, chills, nausea and vomiting. Progress of Wound: She continues to be in a halfway facility for rehab. She will be going back to her assisted living apartment in the few days. Her daughter's are having someone stay with her at night so she is not alone. She has had another hospitalization for CHF exacerbation. She gets short of breath with activity. She is uses a wheelchair more now and is only walking for transfers. The ulcers on her left leg are healed. She has an ulcer on her right knee and right lateral leg that are smaller in size and improving. She has a new skin tear on her ri ght forearm from bumping into something. Objective Data Objective Data Vital Signs: Vital Signs Temp Pulse Resp BP 97.4 F L 80 18 140/69 H 10/11/24 14:19 10/11/24 14:19 10/11/24 14:19 10/11/24 14:19 Charges/Coding Procedures Integumentary [id number]: [id number] Lian subq tissue 20 sq cm/< Debridement Note Debridement Note Wound debrided: Right knee (#22), Right anterior leg wound (#18) Laterality: Right Type of Debridement: Excisional debridement Anesthesia Used: 5% Lidocaine Gel and Cetacaine (right lateral leg wound only) Depth: Down to and including healthy tissue and in the subcutaneous layer Percentage of wound debrided: 100 Instrument Used: 5mm curette Tissue Removed: Non viable tissue and slough Severity: Fat Layer Exposed Amount of bleeding with debridement: Mild Bleeding Controlled with: Pressure and Compression and gauze Patient tolerated procedure: Patient tolerated procedure well Post-Debridement Measurements and Additional Note: Post-Debridement Measurements/Treatment BRAN - Nurse 1 - General Ulcer Assessment Start: 10/11/24 14:18 Freq: Status: Active Protocol: ALEX Activity Type Activity Date Activity User E-sign Co-sign Detail Recorded Client Recorded Date Recorded By Document 10/11/24 14:19 MARIXA [id number] 10/11/24 14:39 DL 10/11/24 14:19 WC - Today's Visit Information Type of service Follow-up Visit (Physician/FAMILY SERVICES MANAGER ) Arrival Mode Wheelchair Transfer Assistance Manual Transfer Assist (Other) x1 Patient Identification Verified (Name & Yes ) Patient Requires Transmission-Based No Precautions Vital Signs Temperature (97.8 F-99.1 F) 97.4 F L Temperature Source Temporal Pulse Rate (60-100) 80 Pulse Location Monitor Respiratory Rate (12-18) 18 Respiratory rate source Observation Blood Pressure (90/60-120/80) 140/69 H Blood Pressure Mean (mm Hg) 92 Source Monitor History Since Last Visit- (Skip if this is Patient's initial visit) Have you changed medications since your No last visit? Any new allergies or adverse reactions No Had a fall/change in ADL's that may No increase risk of falls Signs or symptoms of abuse and/or No neglect since last visit Have you been in the hospital since your No last visit? Has dressing in place as prescribed Yes Has compression in place as prescribed Yes Has offloadiing in place as prescribed Yes Experienced any changes in pain level or No management Pain Scale: 0-10 Numeric Is Patient Pain Free? Yes - Nurse 1 - General Ulcer Measurement Start: 10/11/24 14:18 Freq: Status: Active Protocol: Activity Type Activity Date Activity User E-sign Co-sign Detail Recorded Client Recorded Date Recorded By Document 10/11/24 14:19 MARIXA [id number] 10/11/24 14:39 DL 10/11/24 14:19 Wound Center Nurse 1 #17 Left Lateral Power -Current Size (cm) - Length 0.1 -Current Size (cm) - Width 0.1 -Current Size (cm) - Depth 0.1 -Total Square Cm 0.01 -Epithelialization None Present -Circular Undermining No -Change in Wound Grade/Stage No -Granulation Amt None Present (0 %) -Slough/Fibrin No -Necrosis Amt None Present (0 %) -Texture (Vangie-wound Skin Appearance) Assessed -Moisture (Vangie-wound Skin Appearance) Assessed -Color (Vangie-wound Skin Appearance) Assessed -Temperature (Vangie-wound Skin No Abnormality Appearance) (Pt Warm) -Tenderness on Palpation (Vangie-wound No Skin Appearance) -Ulcer Cleansing Rinsed/ Irrigated with Saline -Foul Odor after Cleansing No -Anesthetic Used 5% Lidocaine Gel #23 right arm -Current Size (cm) - Length 0.4 -Current Size (cm) - Width 1.7 -Current Size (cm) - Depth 0.1 -Total Square Cm 0.68 -Exudate Amt Small -Exudate Type Serosanguineous -Granulation Amt Medium (34-66%) -Slough/Fibrin Yes -Necrosis Amt Medium (34-66%) -Necrotic Tissue Type Adherent Slough -Texture (Vangie-wound Skin Appearance) Assessed -Moisture (Vangie-wound Skin Appearance) Assessed -Color (Vangie-wound Skin Appearance) Assessed -Temperature (Vangie-wound Skin No Abnormality Appearance) (Pt Warm) -Tenderness on Palpation (Vangie-wound No Skin Appearance) -Ulcer Cleansing Rinsed/ Irrigated with Saline -Foul Odor after Cleansing No -Anesthetic Used 5% Lidocaine Gel 22 rt knee -Current Size (cm) - Length 2.3 -Current Size (cm) - Width 0.5 -Current Size (cm) - Depth 0.1 -Total Square Cm 1.15 -Epithelialization Medium 34-66% -Exudate Amt Medium -Exudate Type Serosanguineous -Granulation Amt Medium (34-66%) -Necrosis Amt Medium (34-66%) -Necrotic Tissue Type Adherent Slough -Texture (Vangie-wound Skin Appearance) Assessed -Moisture (Vangie-wound Skin Appearance) Assessed -Color (Vangie-wound Skin Appearance) Assessed -Tenderness on Palpation (Vangie-wound No Skin Appearance) -Ulcer Cleansing Rinsed/ Irrigated with Saline -Foul Odor after Cleansing No -Anesthetic Used 5% Lidocaine Gel #20 lt knee -Current Size (cm) - Length 0.1 -Current Size (cm) - Width 0.1 -Current Size (cm) - Depth 0.1 -Total Square Cm 0.01 -Exudate Amt None Present -Wound Margin Distinct, Outline Attached -Granulation Amt None Present (0 %) -Slough/Fibrin No -Necrosis Amt None Present (0 %) -Temperature (Vangie-wound Skin No Abnormality Appearance) (Pt Warm) -Tenderness on Palpation (Vangie-wound No Skin Appearance) -Ulcer Cleansing Rinsed/ Irrigated with Saline -Foul Odor after Cleansing No -Anesthetic Used 5% Lidocaine Gel #19 RLE LAt -Current Size (cm) - Length 1.8 -Current Size (cm) - Width 0.6 -Current Size (cm) - Depth 0.1 -Total Square Cm 1.08 -Exudate Amt Medium -Granulation Amt Medium (34-66%) -Slough/Fibrin Yes -Necrosis Amt Medium (34-66%) -Necrotic Tissue Type Adherent Slough -Texture (Vangie-wound Skin Appearance) Assessed -Moisture (Vangie-wound Skin Appearance) Assessed -Color (Vangie-wound Skin Appearance) Assessed -Temperature (Vangie-wound Skin No Abnormality Appearance) (Pt Warm) -Tenderness on Palpation (Vangie-wound No Skin Appearance) -Ulcer Cleansing Rinsed/ Irrigated with Saline -Foul Odor after Cleansing No -Anesthetic Used 5% Lidocaine Gel WC - Nurse 2 - General Ulcer CM Notes Start: 10/11/24 14:18 Freq: Status: Active Protocol: Activity Type Activity Date Activity User E-sign Co-sign Detail Recorded Client Recorded Date Recorded By Document 10/11/24 14:48 GM [id number] 10/11/24 14:54 GM 10/11/24 14:48 Wound Center Nurse 2 #23 right arm -Time 14:52 -Correct Patient Yes -Correct Side, Site, Position Yes -Correct Procedure No -Procedure Performed No -Post Debridement (cm) - Length 4.0 -Post Debridement (cm) - Width 3.8 -Post Debridement (cm) - Depth 0.1 -Total Square (Post) (cm) 15.20 -Tunneling No -Undermining/Tunneling No -Circular Undermining No -Foul Odor after Cleansing No -Bioengineered Tissue No -Bleeding Controlled with NA -Offloading No 22 rt knee -Time 14:50 -Correct Patient Yes -Correct Side, Site, Position Yes -Correct Procedure Yes -Procedure Performed Yes -Type of Procedure Debridement -Clinical Debridement Subcutaneous -Tissue Removed Subcutaneous -Post Debridement (cm) - Length 2.2 -Post Debridement (cm) - Width 0.6 -Post Debridement (cm) - Depth 0.1 -Total Square (Post) (cm) 1.32 -Area of Debridement (cm) - Length 2.2 -Area of Debridement (cm) - Width 0.6 -Total Square (Area) (cm) 1.32 -Tunneling No -Undermining/Tunneling No -Circular Undermining No -Wound/Ulcer Outcome Not Healed -Ulcer Cleansing Rinsed/ Irrigated with Saline -Foul Odor after Cleansing No -Bioengineered Tissue No -Bleeding Controlled with NA -Offloading No -Debridement - Subq, 1st 20sq cm Yes #20 lt knee -Time 14:48 -Correct Patient Yes -Correct Side, Site, Position Yes -Correct Procedure No -Procedure Performed No -Tunneling No -Undermining/Tunneling No -Circular Undermining No -Wound/Ulcer Outcome Healed- Epithelialized -Foul Odor after Cleansing No -Bioengineered Tissue No -Bleeding Controlled with NA #19 RLE LAt -Time 14:51 -Correct Patient Yes -Correct Side, Site, Position Yes -Correct Procedure Yes -Procedure Performed Yes -Type of Procedure Debridement -Clinical Debridement Subcutaneous -Tissue Removed Subcutaneous -Post Debridement (cm) - Length 1.8 -Post Debridement (cm) - Width 0.6 -Post Debridement (cm) - Depth 0.1 -Total Square (Post) (cm) 1.08 -Area of Debridement (cm) - Length 1.8 -Area of Debridement (cm) - Width 0.6 -Total Square (Area) (cm) 1.08 -Tunneling No -Undermining/Tunneling No -Circular Undermining No -Wound/Ulcer Outcome Not Healed -Foul Odor after Cleansing No -Bioengineered Tissue No -Bleeding Controlled with NA -Debridement - Subq, 1st 20sq cm No Pain Scale: 0-10 Numeric Is Patient Pain Free? Yes WC - Nurse 3 - General Ulcer D/C NN Start: 10/11/24 14:18 Freq: Status: Active Protocol: Activity Type Activity Date Activity User E-sign Co-sign Detail Recorded Client Recorded Date Recorded By Document 10/11/24 15:14 [facility] [id number] 10/11/24 15:16 [facility] 10/11/24 15:14 Wound Care Center Nurse 3 #23 right arm -Ulcer Cleansing Rinsed/ Irrigated with Saline -Foul Odor after Cleansing No -Primary Dressing Applied NonAdherent Contact Layer -Primary Dressing Covered/Secured with Dry Gauze & Roll Gauze, Secured with Tape -Wound Comment(s) PER ML CAR COOPER 22 rt knee -Ulcer Cleansing Rinsed/ Irrigated with Saline -Foul Odor after Cleansing No -Primary Dressing Applied NonAdherent Contact Layer -Other Dressing PER M L CAR COOPER -Primary Dressing Covered/Secured with Dry Gauze, Secured with Tape #20 lt knee -Ulcer Cleansing Rinsed/ Irrigated with Saline -Foul Odor after Cleansing No -Primary Dressing Applied NonAdherent Contact Layer -Other Dressing PER ML CAR COOPER -Primary Dressing Covered/Secured with Dry Gauze, Secured with Tape #19 RLE LAt -Ulcer Cleansing Rinsed/ Irrigated with Saline -Foul Odor after Cleansing No -Primary Dressing Applied NonAdherent Contact Layer -Other Dressing PER ML CAR COOPER -Primary Dressing Covered/Secured with Dry Gauze, Secured with Tape RUE -Tubular Bandage Single Layer -Size of Tubigrip Used Size E -Size E ($) 1 BLE -Tubular Bandage Double Layer -Size of Tubigrip Used Size E -Size E ($) 2 Treatment Response Procedure Tolerated Well Pain Scale: 0-10 Numeric Is Patient Pain Free? Yes WC - Visit Discharge Discharge Condition Stable Ambulatory Status Wheelchair Transportation [facility]CF TRANSPORT Accompanied by [employer] Facility Type [facility] Facility Assessment/Plan Assessment/Plan (1) Ulcer of left lower extremity with fat layer exposed: CODE(S): L97.922 - Non-pressure chronic ulcer of unspecified part of left lower leg with fat layer exposed (2) Frequent falls: CODE(S): R29.6 - Repeated falls (3) Bilateral lower extremity edema: CODE(S): R60.0 - Localized edema (4) [facility] (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: CODE(S): Z79.01 - long term acute care registered nurse (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 (5) Chronic venous insufficiency: (6) Personal history of skin cancer: CODE(S): Z85.828 - Personal history of other malignant neoplasm of skin (7) Former smoker: CODE(S): Z87.891 - Personal history of nicotine dependence (8) History of CHF (congestive heart failure): CODE(S): Z86.79 - Personal history of other diseases of the circulatory system (9) Ulcer of right lower extremity with fat layer exposed: CODE(S): L97.912 - Non-pressure chronic ulcer of unspecified part of right lower leg with fat layer exposed (10) Skin tear of right elbow without complication: CODE(S): S51.011A - Laceration without foreign body of right elbow, initial encounter PLAN: Plan Patient evaluated at the wound healing center today. Right forearm was not debrided. It is a skin tear that is stable with very small wound surrounding the U-shaped tear. Wound care? To right knee and lateral leg ulcers and right forearm skin tear place Xeroform gauze and cover with ABD daily. Wash all wounds/ulcers with soap and water at the time of dressing changes. Compression: Double tubigrips bilaterally. She will follow-up in 3weeks. Call or come in sooner if develop any concerns.
--- NOTE | 2024-10-12 08:33 | WC ---
PHOTO 10/11/24 LEFT LATERAL (H)
--- NOTE | 2024-10-12 08:36 | WC ---
PHOTO 10/11/24 LEFT KNEE
== END 2024-10-23 23:59 | disposition skilled nursing facility (03) ==
LOC: WC 14:14
PROVIDERS: PCP Family Medicine; Referring Provider Nurse Practitioner Family; Visit Provider Nurse Practitioner Family
DX: L97.812 Non-pressure chronic ulcer of other part of right lower leg with fat layer exposed (principal); M06.9 Rheumatoid arthritis, unspecified; I50.9 Heart failure, unspecified; I48.91 Unspecified atrial fibrillation; S51.811A Laceration without foreign body of right forearm, initial encounter; W22.09XA Striking against other stationary object, initial encounter; R29.6 Repeated falls; I87.2 Venous insufficiency (chronic) (peripheral); Z79.01 Long term (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; Z79.631 Long term (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 antimetabolite agent; Z85.828 Personal history of other malignant neoplasm of skin; Z87.891 Personal history of nicotine dependence
CPT/HCPCS: 11042